=== PATIENT | female | born 1945 ===

== ENCOUNTER 2017-06-09 15:35 | Outpatient (RCR) | payer MEDICARE ==
--- NOTE | 2017-05-26 14:54 | Diagnostic Imaging Report ---
PROCEDURE: Frontal and lateral views of the chest. COMPARISON: None. INDICATIONS: PRE OPERTIVE CHEST X-RAY FOR FOOT SURGERY FINDINGS: Lines/tubes: Right subclavian tunneled chest port with tip projecting over the expected region of the superior vena cava. Lungs: The lungs are well inflated and clear. There is no evidence of pneumonia or pulmonary edema. Pleura: There is no pleural effusion or pneumothorax. Heart and mediastinum: The heart and the mediastinum are normal. Bones: No acute bony abnormality. Degenerative changes of the thoracic spine. Median sternotomy wires. IMPRESSION: No acute radiographic abnormality. Dictated by: Sebastian Hogue M.D. on 05/26/2017 at 15:01 Electronically approved by: Sebastian Hogue M.D. on 05/26/2017 at 15:01
[~2017-06-09 15:35] MED LIST: LIDOCAINE VISC 2% SOLN 15 ML UDC ONE
== END 2017-06-20 ==
LOC: WCC 15:35
PROVIDERS: ATTEND Podiatrist Foot & Ankle Surgery
DX: E11.621 Type 2 diabetes mellitus with foot ulcer (principal); E11.36 Type 2 diabetes mellitus with diabetic cataract; L97.522 Non-pressure chronic ulcer of other part of left foot with fat layer exposed; I10 Essential (primary) hypertension; N18.4 Chronic kidney disease, stage 4 (severe); D63.1 Anemia in chronic kidney disease; Z85.42 Personal history of malignant neoplasm of other parts of uterus; Z01.810 Encounter for preprocedural cardiovascular examination; Z01.811 Encounter for preprocedural respiratory examination
CPT/HCPCS: 11042 ×2; 36415 ×2; 71020; 82948 ×2; G0463

== ENCOUNTER → 2017-07-21 | Outpatient (RCR) | payer MEDICARE | LOC: WCC 12:53 | PROVIDERS: ATTEND Podiatrist Foot & Ankle Surgery | DX: E11.621 Type 2 diabetes mellitus with foot ulcer (principal); E11.36 Type 2 diabetes mellitus with diabetic cataract; M86.18 Other acute osteomyelitis, other site; L97.523 Non-pressure chronic ulcer of other part of left foot with necrosis of muscle; L97.522 Non-pressure chronic ulcer of other part of left foot with fat layer exposed; L97.521 Non-pressure chronic ulcer of other part of left foot limited to breakdown of skin; N18.4 Chronic kidney disease, stage 4 (severe); D63.1 Anemia in chronic kidney disease; I10 Essential (primary) hypertension; Z85.42 Personal history of malignant neoplasm of other parts of uterus; Z01.810 Encounter for preprocedural cardiovascular examination; Z01.811 Encounter for preprocedural respiratory examination | CPT/HCPCS: 36415; 82948 ==

== ENCOUNTER 2017-07-28 12:47 | Outpatient (RCR) | payer MEDICARE ==
[2017-07-28] MEDS ORDERED: LIDOCAINE VISC 2% SOLN 15 ML UDC ONE (15:22)
[2017-07-31] MEDS ORDERED: FUROSEMIDE40 MG PO (20:41)
[2017-07-31] MEDS ORDERED: LISINOPRIL10 MG PO (20:42)
[2017-07-31] MEDS ORDERED: CARVEDILOL12.5 MG PO (20:42)
[2017-07-31] MEDS ORDERED: LORAZEPAM0.5 MG PO (20:43)
[2017-07-31] MEDS ORDERED: TRADJENTA5 MG PO (20:43)
[2017-07-31] MEDS ORDERED: ZOFRAN ODT4 MG PO (20:44)
[2017-07-31] MEDS ORDERED: FENOFIBRATE145 MG PO (20:45)
[2017-07-31] MEDS ORDERED: GABAPENTIN300 MG PO (20:46)
[2017-07-31] MEDS ORDERED: PINDOLOL5 MG PO (20:46)
[2017-07-31] MEDS ORDERED: LEXAPRO10 MG PO (20:47)
[2017-07-31] MEDS ORDERED: BACLOFEN10 MG PO (20:47)
[2017-07-31] MEDS ORDERED: PLAVIX75 MG PO (20:48)
[2017-07-31] MEDS ORDERED: METOCLOPRAMIDE10 MG PO (20:49)
[2017-07-31] MEDS ORDERED: CARDENE PO (20:50)
[2017-07-31] MEDS ORDERED: ZOCOR40 MG PO (20:51)
[2017-07-31] MEDS ORDERED: CIPRO500 MG PO (20:51)
[2017-07-31] MEDS ORDERED: ATORVASTATIN CA20 MG PO (20:52)
[2017-07-31] MEDS ORDERED: LEVAQUIN250 MG PO (20:52)
[2017-07-31] MEDS ORDERED: HUMULIN-R100 UNITS/ SC (20:53)
[2017-07-31] MEDS ORDERED: ASPIR 8181 MG PO (20:54)
--- NOTE | 2017-08-04 12:41 | Progress Note ---
DATE: August 04, 2017 REASON FOR CONSULTATION: Chronic kidney stage IV. SUBJECTIVE: No acute events overnight. Upper extremities are tender to touch. OBJECTIVE GENERAL: Lying comfortably in bed, in no acute distress. VITAL SIGNS: Temperature 98, heart rate 66, respiratory rate 20, blood pressure 126/60, and O2 sat is 99% on room air. LUNGS: Clear to auscultation bilaterally. No wheezing or rales. HEART: Regular rate and rhythm. S1, S2 normal. EXTREMITIES: Diffuse purpuric rash, tender to touch. LABS: Reviewed on electronic medical record, significant for hemoglobin of 10.2, creatinine of 2.4, BUN of 52, chloride 108. Urinalysis performed on presentation was positive for blood, but also positive for moderate epithelial cells indicative of contamination. We will repeat urinalysis. ASSESSMENT AND PLAN 1. Accelerated hypertension. We will continue amlodipine and Coreg. 2. Poor oral intake, so we will keep with normal saline at 50 mL per hour. Job#: [id number] [facility]
[2017-08-05] MEDS ORDERED: DOCUSATE SODIU100 MG PO (11:06)
[2017-08-05] MEDS ORDERED: ASCORBIC ACID500 MG PO (11:06)
[2017-08-05] MEDS ORDERED: MAGNESIUM OXID400 MG PO (11:06)
[2017-08-05] MEDS ORDERED: BACLOFEN10 MG PO (11:06)
[2017-08-05] MEDS ORDERED: PROCARDIA XL30 MG PO (11:06)
[2017-08-05] MEDS ORDERED: NEPHRO-VITE TABL1 EA PO (11:06)
[2017-08-05] MEDS ORDERED: LORAZEPAM0.5 MG PO (11:06)
[2017-08-05] MEDS ORDERED: Calcium Carbonate PO (11:06)
[2017-08-05] MEDS ORDERED: ZINC SULFATE220 M1 PO (11:06)
[2017-08-12] MEDS ORDERED: PROCARDIA XL30 MG PO (13:49)
[2017-08-12] MEDS ORDERED: BACLOFEN10 MG PO (13:49)
[2017-08-12] MEDS ORDERED: ZOFRAN ODT4 MG PO (13:54)
== END 2017-08-18 ==
LOC: WCC 12:47
PROVIDERS: ATTEND Podiatrist Foot & Ankle Surgery
DX: E11.621 Type 2 diabetes mellitus with foot ulcer (principal); L97.522 Non-pressure chronic ulcer of other part of left foot with fat layer exposed; M86.18 Other acute osteomyelitis, other site; D63.1 Anemia in chronic kidney disease; E11.36 Type 2 diabetes mellitus with diabetic cataract; I10 Essential (primary) hypertension; N18.4 Chronic kidney disease, stage 4 (severe); Z01.810 Encounter for preprocedural cardiovascular examination; Z01.811 Encounter for preprocedural respiratory examination; Z85.42 Personal history of malignant neoplasm of other parts of uterus

== ENCOUNTER 2017-07-31 14:34 | Inpatient (IN) | payer MEDICARE ==
[~2017-07-31] VITALS: Ht 175.3 cm; Wt 89.4 kg
--- OUTSIDE RECORDS SUMMARY | 2017-07-31 14:37 | XMS REPORT | Clinical Summary ---
Author Author [facility] Organization [facility] Address Unknown Phone Unavailable Care Team Providers Care County Supervisor Name Role Phone Arsen Baeza MD PCP Allergies Active Allergy Reactions Severity Noted Date Comments Hydralazine 07/08/2016 Sulfa (Sulfonamide 07/08/2016 Antibiotics) Current Medications Prescription Sig. Disp. Refills Start End Date Status Date gabapentin (NEURONTIN) Take 1 capsule by mouth 1 05/21/20 Active 300 mg capsule twice a day 16 linagliptin (TRADJENTA) 5 Take 5 mg by mouth daily. Active mg tablet aspirin 325 MG tablet Take 325 mg by mouth Active daily. atorvastatin (LIPITOR) 20 Take 20 mg by mouth Active MG tablet nightly. LORAZepam (ATIVAN) 0.5 MG Take 0.5-1 mg by mouth Active tablet daily as needed for anxiety. metoclopramide (REGLAN) 5 Take 5 mg by mouth 2 Active MG tablet (two) times a day. escitalopram (LEXAPRO) 5 Take 5 mg by mouth daily. Active MG tablet INSULIN REGULAR, HUMAN Inject 35 Units under the Active (HUMULIN R U-500, CONC, skin 2 (two) times a day. KWIKPEN SUBQ) pindolol (VISKEN) 5 MG Take 1 tablet (5 mg 60 tablet 0 07/24/1911/07 Active tablet total) by mouth 2 (two) 18 18 times a day for 30 days. niCARDipine (CARDENE) 20 Take 1 capsule (20 mg 90 capsule 0 07/24/19 08/24/19 Active MG capsule total) by mouth every 8 18 18 (eight) hours for 30 days. furosemide (LASIX) 20 mg Take 1 tablet (20 mg 30 tablet 0 07/25/19 08/25/19 Active tablet total) by mouth daily for 18 18 30 days. fenofibrate (LOFIBRA) 160 Take 1 tablet (160 mg 30 tablet 0 07/25/19 08/25/19 Active MG tablet total) by mouth daily for 18 18 30 days. metoclopramide (REGLAN) TK 1 T PO QD AC AND HS 1 05/07/20 03/30/20 Discontin 10 MG tablet 16 17 ued benazepril (LOTENSIN) 40 TK 1 T PO QD 1 04/27/20 12/10/19 Discontin MG tablet 16 17 ued simvastatin (ZOCOR) 40 MG TK 1 T PO D HS 0 04/26/20 03/30/20 Discontin tablet 16 17 ued furosemide (LASIX) 40 mg Take 1 tablet by mouth 1 06/01/20 07/24/19 Discontin tablet every day 16 18 ued ZETIA 10 mg tablet TK 1 T PO QD 1 05/21/20 12/10/19 Discontin 16 17 ued amLODIPine (NORVASC) 10 TK 1 T PO QD 1 05/08/20 12/10/19 Discontin mg tablet 16 17 ued LEVEMIR FLEXTOUCH 100 INJECT 30 UNITS UNDER THE 2 06/04/20 12/10/19 Discontin unit/mL (3 mL) insulin SKIN BID 16 17 ued pen PROAIR HFA 90 INHALE 2 PUFFS PO Q 4 TO 1 06/04/20 12/10/19 Discontin mcg/actuation inhaler 6 H PRN 16 17 ued cyclobenzaprine Take 10 mg by mouth 3 12/10/19 Discontin (FLEXERIL) 10 mg tablet (three) times a day as 17 ued needed for muscle spasms. carvedilol (COREG) 25 MG Take 50 mg by mouth 2 04/03/20 Discontin tablet (two) times a day with 17 ued meals. isosorbide mononitrate Take 60 mg by mouth 07/24/19 Discontin (IMDUR) 60 MG 24 hr daily. 18 ued tablet sodium,potassium,mag Please use as directed 2 Bottle 0 07/08/19 Discontin sulfates (SUPREP BOWEL 17 17 ued PREP KIT) 17.5-3.13-1.6 gram recon soln clopidogrel (PLAVIX) 75 Take 75 mg by mouth 07/23/19 Discontin mg tablet daily. 18 ued benazepril (LOTENSIN) 10 Take 10 mg by mouth. 03/19/20 Discontin MG tablet 17 ued NIFEdipine XL (PROCARDIA TK 1 T PO QD 3 10/29/19 03/17/20 Discontin XL) 30 MG 24 hr tablet 17 17 ued insulin GLARGINE (LANTUS) Inject under the skin. 03/17/20 Discontin 100 unit/mL injection 17 ued (vial) atorvastatin (LIPITOR) 20 02/02/20 03/17/20 Discontin MG tablet 17 17 ued escitalopram (LEXAPRO) 5 Take 5 mg by mouth daily. 03/04/20 03/30/20 Discontin MG tablet 17 17 ued HUMULIN R U-500, CONC, 01/20/20 03/30/20 Discontin KWIKPEN 500 unit/mL (3 17 17 ued mL) insulin pen NIFEdipine CC (ADALAT CC) 03/03/20 03/19/20 Discontin 30 MG 24 hr tablet 17 17 ued atorvastatin (LIPITOR) 10 Take 10 mg by mouth 03/19/20 Discontin MG tablet daily. 17 ued LORAZepam (ATIVAN) 1 MG Take 1 mg by mouth every 03/30/20 Discontin tablet 6 (six) hours as needed 17 ued for anxiety. ondansetron (ZOFRAN) 4 MG Take 4-8 mg by mouth 04/03/20 Discontin tablet daily as needed for 17 ued nausea or vomiting. lisinopril Take 1 tablet (20 mg 30 tablet 2 03/19/20 03/30/20 Discontin (PRINIVIL,ZESTRIL) 20 mg total) by mouth daily for 17 17 ued tablet 30 days. NIFEdipine CC (ADALAT CC) Take 1 tablet (60 mg 30 tablet 2 03/19/20 03/30/20 Discontin 60 MG 24 hr tablet total) by mouth daily for 17 17 ued 30 days. NIFEdipine XL (PROCARDIA Take 30 mg by mouth 04/03/20 Discontin XL) 30 MG 24 hr tablet daily. 17 ued benazepril (LOTENSIN) 40 Take 40 mg by mouth 07/23/19 Discontin MG tablet daily. 18 ued furosemide (LASIX) 20 mg Take 20 mg by mouth daily 07/24/19 Discontin tablet as needed. 18 ued NAPROXEN Take 1 tablet by mouth 10/14/20 Discontin SOD/DIPHENHYDRAMINE nightly as needed. 17 ued (ALEVE PM ORAL) omega-3 fatty acids 1,000 Take 1 capsule by mouth 07/23/19 Discontin mg capsule daily. 18 ued carvedilol (COREG) 25 MG Take 2 tablets (50 mg 120 tablet 1 04/03/20 05/03/20 tablet total) by mouth 2 (two) 17 17 times a day with meals for 30 days. clonIDINE (CATAPRES) 0.1 Take 1 tablet (0.1 mg 30 tablet 1 04/03/20 05/03/20 MG tablet total) by mouth every 4 17 17 (four) hours as needed for high blood pressure (for sbp > 170) for up to 30 days. ipratropium-albuterol Take 3 mL by nebulization 270 mL 0 04/03/20 (DUO-NEB) 0.5-2.5 mg/mL every 6 (six) hours while 17 17 nebulizer awake for 30 days. NIFEdipine XL (PROCARDIA Take 1 tablet (60 mg 30 tablet 3 04/03/20 05/03/20 XL) 60 MG 24 hr tablet total) by mouth daily for 17 17 30 days. insulin NPH (HumuLIN-N) Inject 35 Units under the 10 mL 12 04/03/20 04/03/20 Discontin 100 unit/mL injection skin 2 (two) times a day 17 17 ued before meals for 30 days. insulin lispro (HumaLOG) Inject 0-7 Units under 10 mL 12 04/03/20 Discontin 100 unit/mL injection the skin 3 (three) times 17 17 ued a day with meals for 30 days. cefdinir (OMNICEF) 300 MG Take 1 capsule (300 mg 14 capsule 0 04/10/20 capsule total) by mouth 2 (two) 17 17 times a day for 7 days. levoFLOXacin (LEVAQUIN) Take 750 mg by mouth 2 07/21/19 07/24/19 Discontin 750 MG tablet (two) times a day. 18 18 ued NIFEdipine CC (ADALAT CC) Take 60 mg by mouth 2 07/22/19 07/24/19 Discontin 60 MG 24 hr tablet (two) times a day. 18 18 ued traMADol (ULTRAM) 50 mg Take 50 mg by mouth 2 07/16/19 07/23/19 Discontin tablet (two) times a day. 18 18 ued Active Problems Problem Noted Date Episodic lightheadedness 07/22/2017 Urinary tract infection in female 03/30/2017 UTI (urinary tract infection) 03/30/2017 Dizziness, nonspecific 03/17/2017 Encounters Date Type Specialty Care Team Description 07/28/2017 Patient Quality Nayeli Hayes, PharmD Outreach 07/22/2017 Emergency General Internal Medicine Andreas Arboleda MD Episodic lightheadedness - Emilee Canas MD (Primary Dx);Secondary 07/24/2017 hypertension;Renal insufficiency;Dizziness, nonspecific 03/30/2017 [facility] General Internal Medicine Andreas Reyes MD Urinary tract infection - Encounter WatsonangelCarolyn bonilla in female (Primary 04/03/2017 MD Priscilla Dx);Sepsis, due to unspecified organism;Weakness;Malaise and fatigue;Dizziness, nonspecific 03/17/2017 Emergency General Internal Medicine Andreas Arboleda MD Dizziness, nonspecific - Isaac Matthews MD (Primary Dx);Gait 03/19/2017 abnormality 03/17/2017 Procedure Pass General Internal Medicine 03/11/2017 Emergency Emergency Medicine Andreas Reyes MD 12/16/2016 Office Visit Cardiovascular Lincoln Salamanca MD Bilateral lower extremity edema (Primary Dx);Toe ulcer, left, with unspecified severity 12/09/2016 Office Visit Cardiovascular Lincoln Salamanca MD Peripheral vascular disease (Primary Dx) 09/23/2016 Orders Only iDmas Taylor MD 09/22/2016 Hospital Isaac Matthews MD - Encounter 09/23/2016 09/22/2016 Conversion Isaac Matthews MD Encounter 09/22/2016 Orders Only Patricia Houston NP-C 09/09/2016 [facility] Radiology Tom Saini Jr., MD after 07/30/2016 Immunizations Name Dates Previously Given Next Due FLUCELVAX QUAD PF (0.5mL 03/18/2017 syringe) Pneumococcal Conjugate 03/18/2017 13-Valent Family History Medical History Relation Name Comments Diabetes Brother Heart disease Brother Hypertension Brother Cancer Father unknown Colon cancer Maternal Aunt Diabetes Mother Heart disease Mother Hypertension Mother Diabetes Sister Heart disease Sister Hypertension Sister Relation Name Status Comments Brother Father Maternal Aunt Mother Sister Social History Tobacco Use Types Packs/Day Years Used Date Never Smoker Smokeless Tobacco: Never Used Tobacco Cessation: Counseling Given: No Alcohol Use Drinks/Week oz/Week Comments No Sex Assigned at Date Recorded Not on file Last Filed Vital Signs Vital Sign Reading Time Taken Blood Pressure 128/62 07/24/2017 10:41 AM SALES NEGOTIATOR Pulse 72 07/24/2017 10:41 AM SALES NEGOTIATOR Temperature 36.3 C (97.4 F) 07/24/2017 7:51 AM SALES NEGOTIATOR Respiratory Rate 17 07/24/2017 7:51 AM SALES NEGOTIATOR Oxygen Saturation 96% 07/24/2017 7:51 AM SALES NEGOTIATOR Inhaled Oxygen - - Concentration Weight 94.8 kg (208 lb 15.9 oz) 07/23/2017 4:32 AM SALES NEGOTIATOR Height 160 cm (5' 2.99") 07/23/2017 4:32 AM SALES NEGOTIATOR Body Mass Index 37.03 07/23/2017 4:32 AM SALES NEGOTIATOR Plan of Treatment Health Maintenance Due Date Last Done Comments COLONOSCOPY 1997 ZOSTER VACCINE 2007 PNEUMOCOCCAL 2012 POLYSACCHARIDE VACCINE AGE 65 AND OVER MAMMOGRAM 06/18/2018 06/18/2016 INFLUENZA VACCINE Completed 03/18/2017 PNEUMOCOCCAL-13 Completed 03/18/2017 Implants Implanted Type Area [employer] 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 IN CRITICAL CARE, E/M Routine 03/30/2017 Results for this 30-74 MINUTES 10:03 AM CDT procedure are in the results section. ECHOCARDIOGRAM 2D Routine 03/18/2017 Results for this COMPLETE W MMODE SPECTRAL 11:15 AM CDT procedure are in the COLOR DOPPLER (27482) results section. CV STRESS TEST Routine 09/23/2016 Results for this 10:40 AM CDT procedure are in the results section. ECHOCARDIOGRAM COMPLETE W 09/22/2016 Results for this CONTRAST AND 3D IF NEEDED 1:55 PM CDT procedure are in the results section. after 07/30/2016 Results * Estimated GFR (07/24/2017 9:07 AM) Only the most recent of 13 results within the time period is included. Component Value Ref Range GFR Non Af Amer 19 (A) mL/min/1.73 m2 GFR Af Amer 23 (A) mL/min/1.73 m2 Comment: Chronic kidney disease: <60 mL/min/1.73m2 Kidney failure: <15 mL/min/1.73m2 The estimated GFR is calculated from the IDMS-traceable Modification of Diet in Renal Disease Equation. The accuracy of the calculation is poor when the creatinine is normal. Calculated values >90 mL/min/1.73m2 are not reported. This equation has not been validated in children (<18 years), women, the elderly (>70 years), or ethnic groups other than Caucasians and Americans. Specimen Performing Laboratory Plasma specimen [facility] DEPARTMENT OF PATHOLOGY AND GENOMIC MEDICINE [address] [place] [address] * CBC with platelet and differential (07/24/2017 9:07 AM) Only the most recent of 12 results within the time period is included. Component Value Ref Range WBC 6.3 4.2 - 11.0 k/uL RBC 3.51 (L) 4.04 - 5.86 m/uL HGB 9.8 (L) 11.5 - 15.3 g/dL HCT 30.2 (L) 34.0 - 45.0 % MCV 86.0 80.0 - 98.0 fL MCH 27.9 27.0 - 34.0 pg MCHC 32.5 31.5 - 36.5 g/dL RDW - SD 42.6 37.0 - 51.0 fL MPV 9.3 7.4 - 10.4 fL Platelet count 202 150 - 400 k/uL Nucleated RBC 0.00 /100 WBC Neutrophils 46.2 36.0 - 66.0 % Lymphocytes 45.0 (H) 24.0 - 44.0 % Monocytes 4.4 0.0 - 6.0 % Eosinophils 3.6 0.0 - 6.0 % Basophils 0.6 0.0 - 1.2 % Immature granulocytes 0.2 0.0 - 1.0 % Specimen Performing Laboratory Blood [facility] DEPARTMENT OF PATHOLOGY AND GENOMIC MEDICINE [address] [place] [address] * Basic metabolic panel (07/24/2017 9:07 AM) Only the most recent of 10 results within the time period is included. Component Value Ref Range Sodium 138 135 - 150 mEq/L Potassium 4.0 3.5 - 5.0 mEq/L Chloride 107 100 - 109 mEq/L CO2 24 24 - 32 mmol/L Anion gap 7 7 - 15 mEq/L Comment: Starting from September , anion gap calculation no longer incorporates potassium. Please note the change. BUN 30 (H) 7 - 18 mg/dL Creatinine 2.5 (H) 0.8 - 1.5 mg/dL Glucose 234 (H) 65 - 100 mg/dL Calcium 8.0 (L) 8.6 - 10.7 mg/dL Specimen Performing Laboratory Plasma specimen [facility] DEPARTMENT OF PATHOLOGY AND GENOMIC MEDICINE [address] [place] [address] * POC glucose (07/24/2017 6:16 AM) Only the most recent of 42 results within the time period is included. Component Value Ref Range POC glucose 272 (H) 65 - 100 mg/dL Comment: Meter ID: [id number] Web Graphic Designer: Shwetha Prince Specimen Performing Laboratory [facility] DEPARTMENT OF PATHOLOGY AND GENOMIC MEDICINE [address] [place] [address] * Echocardiogram complete w contrast and 3D if needed (07/23/2017 4:49 PM) Component Value Ref Range BSA 2.05 m2 Velocity Ratio (V1/V2) 0.58 m/s IVS,d 1.29 (A) 0.6 - 1.2 cm EF 72.32 % Ascending aorta 3.19 cm LVPWD,d 1.28 cm AoV Mean PG 4.71 mmHg AV LVOT peak gradient 3.38 mmHg MV mean gradient 3.46 mmHg MV valve area p 1/2 4.01 cm2 method PV Pk Grad 4.20 mmHg E/A ratio 0.74 E wave decelartion time 189.37 msec LVOT Diam,S 2.00 cm LVOT area 3.14 cm2 LVOT Vmax 0.92 m/s LVOT VTI 0.23 m AoV Peak PG 10.09 mmHg MV Peak E Martín 0.99 m/s MV stenosis pressure 1/2 54.92 ms time MV Peak A Martín 1.34 m/s Ao Root Diameter 3.48 cm AoV Area, Vmax 1.93 cm2 AoV Area, VTI 2.40 cm2 AoV Vmax 1.59 m/s IVS/LVPW,2D 1.01 Left Atrium Dimension 3.42 cm Anterior LV,d 4.51 cm LV,s 2.65 cm PV VMAX 1.02 m/s TR Vpeak 1.97 mm/s MV E A ratio 0.74 mmHg TR pk grad 15.56 mmHg MR peak grad 7.12 mmHg Ao Root Diameter 3.48 cm LV SYS VOL 25.74 ml LV STEPHENSON VOL 92.99 ml LV SV Teich 2D 67.26 ml LV Vol s Teich PSAX 25.74 ml LVOT CO 5.05 l/min LVOT HR for LVOT CO 70.07 bpm MV Vmax 1.33 m MV VTI Tips 0.33 m AoV Vmn 1.03 IVS s 2D 1.60 LV FS Cube 2D 41.31 LV FS Teich 2D 41.31 AoV VTI 0.30 m LV EF,2D 79.79 % MV AE ratio 1.35 LVOT Vmn 0.64 Aov area Vmn 1.90 cm2 LVOT mean grad 1.88 mmHg MAX Pred HR 149.67 85 of MPHR 127.22 Calc MPHR 149.67 bpm IVS pct thck PLAX 24.09 % LV SV Cube 2D 73.26 ml LV vol d cube 2D 91.82 ml LV vol s cube 2D 18.56 ml LVPW pct thck PLAX 67.03 % LVPW s PLAX 2.13 cm MV Decel slope 5.24 m/s2 Pred Exer Dur R1 6.79 Pred METS R1 5.56 Specimen Performing Laboratory [facility] [address] [place] [address] Narrative The left ventricle chamber size is normal. There is mild left ventricular Spectral Doppler shows impaired relaxation pattern of left ventricular diastolic filling. Left Ventricular ejection fraction is 60 - 65%. Right ventricular size is normal. The anterior leaflet is moderate thickened and/or calcified. There is a mild prolapse of the mitral valve. Trace mitral valve regurgitation mild mitral annular calcification. * ECG ED Preliminary Interpretation - NOT AN ORDER (07/23/2017 2:25 PM) Only the most recent of 3 results within the time period is included. Narrative Andreas Arboleda MD 07/23/20172:25 PM ECG ED Preliminary Interpretation - Not an Order Performed by: ANDREAS ARBOLEDA Authorized by: ANDREAS ARBOLEDA ECG reviewed by ED Physician in the absence of a dynamic balancer set up worker: yes Previous ECG: Previous ECG:Unavailable Interpretation: Interpretation: abnormal Rate: ECG rate:87 ECG rate assessment: normal Rhythm: Rhythm: sinus rhythm Ectopy: Ectopy: none QRS: QRS axis:Left QRS intervals:Normal Conduction: Conduction: normal ST segments: ST segments:Normal T waves: T waves: flattening T wave flattening noted on lead: diffuse. * Gram stain (07/23/2017 1:40 PM) Only the most recent of 2 results within the time period is included. Component Value Ref Range Gram stain result No WBC's or organisms seen. Comment: Specimen Information Specimen Source: Urine Specimen Site: Clean catch Specimen Performing Laboratory Urine [facility] DEPARTMENT OF PATHOLOGY AND GENOMIC MEDICINE [address] [place] [id number] * Urine culture (07/23/2017 1:40 PM) Only the most recent of 3 results within the time period is included. Component Value Ref Range Urine culture isolate Streptococcus group B 10-1 cfu/ml (A) Comment: Specimen Information Specimen Source: Urine Specimen Site: Clean catch Urine culture isolate Mixed Gram positive faina 10-3 cfu/ml (A) Specimen Performing Laboratory Urine [facility] DEPARTMENT OF PATHOLOGY AND GENOMIC MEDICINE [address] [place] [address] * Urinalysis screen and microscopy, with reflex to culture (07/23/2017 1:39 PM) Only the most recent of 3 results within the time period is included. Component Value Ref Range Specimen site Clean catch Color, UA Yellow Appearance, UA Clear Specific gravity, UA 1.011 1.001 - 1.035 pH, UA 5.0 5.0 - 8.5 Protein, UA 3+ (A) Negative Glucose, UA 3+ (A) Negative Ketones, UA Negative Negative Bilirubin, UA Negative Negative Blood, UA Trace (A) Negative Nitrite, UA Negative Negative Urobilinogen, UA Negative <2.0 Leukocyte esterase, UA Negative Negative Epithelial cells, UA Many /HPF WBC, UA 5 (A) 0 - 5 /HPF RBC, UA 8 (H) 0 - 5 /HPF Bacteria, UA Few None seen Yeast, UA None seen Yeast with pseudohyphae, None seen UA Hyaline casts, UA 3 /LPF Specimen Performing Laboratory Urine [facility] DEPARTMENT OF PATHOLOGY AND GENOMIC MEDICINE [address] [place] [address] * Prothrombin time with INR (07/23/2017 4:26 AM) Only the most recent of 4 results within the time period is included. Component Value Ref Range Prothrombin time 15.7 (H) 12.0 - 15.0 sec INR 1.23 (H) 0.92 - 1.12 Comment: For patients on anticoagulant therapy, reference ranges below: Indication: INR Value Treatment of Venous Thrombosis, 2.0-3.0 pulmonary emboli, or prophylaxis of a venous thrombosis, or systemic emboli. High dose, high risk patients 3.0-4.5 with mechanical valves. NOTE: INR values over 3.0 are sometimes associated with gastrointestinal hemorrhage, especially values over 4.0. Specimen Performing Laboratory Blood [facility] DEPARTMENT OF PATHOLOGY AND GENOMIC MEDICINE [address] [place] [address] * Hemoglobin A1c (07/23/2017 4:26 AM) Only the most recent of 4 results within the time period is included. Component Value Ref Range Hemoglobin A1C 8.9 (H) 4.0 - 6.0 % Comment: Less than 6% - Goal of therapy for Type II Diabetes Less than 7%- Goal of therapy for Type I Diabetes Less than 8%- Acceptable control for Type I or Type II Diabetes Greater than 8%- Unacceptable control; action indicated. (A DA94) Specimen Performing Laboratory Blood [facility] DEPARTMENT OF PATHOLOGY AND GENOMIC MEDICINE [address] [place] [address] * Lipid panel (07/23/2017 4:26 AM) Only the most recent of 2 results within the time period is included. Component Value Ref Range Cholesterol 247 (H) 120 - 200 mg/dL Triglycerides 603 (H) 50 - 150 mg/dL HDL cholesterol 34 (L) 40 - 60 mg/dL LDL cholesterol 138Comment: Result obtained by direct LDL mg/dL measurement Lipid panel See below interpretation Comment: Total Cholesterol (mg/dL) LDL Cholesterol (mg/dL) <200 Desirable <100 Optimal 200-239 Borderline-high 100-129 Near or above optimal >=240 High 130-159 Borderline-high 160-189 High >=190 Very high HDL Cholesterol (mg/dL) Triglycerides (mg/dL) <40 Low <150 Normal >=60 High 150-199 Borderline-high 200-499 High >=500 Very high Risk Catergories that modify LDL goals. Risk Catergories LDL goal (mg/dL) CHD and CHD risk equivalent <100 (10-year risk >20%) Multiple (2+) risk factors <130 (10-year risk=<20%) 0-1 risk factors <160 (<10-year risk) Defining levels of lipids in metabolic syndrome Triglycerides >=150 mg/dL HDL Cholesterol Men <40 mg/dL Women <50 mg/dL Non-HDL cholesterol is a second target for therapy in persons with high triglycerides (>=200 mg/dL) Specimen Performing Laboratory Plasma specimen [facility] DEPARTMENT OF PATHOLOGY AND GENOMIC MEDICINE [address] [place] [address] [place] [address] * Troponin (07/23/2017 12:22 AM) Only the most recent of 10 results within the time period is included. Component Value Ref Range Troponin <0.01 0.00 - 0.60 ng/mL Comment: 0.11 - 1.49 ng/ml May indicate increased risk of acute coronary syndrome. >=1.5 ng/ml Consistent with acute myocardial infarction. The diagnostic value of a single normal or non-diagnostic result is questionable. Serial samples at 2-6 hour intervals are required to rule out acute myocardial injury. Specimen Performing Laboratory Plasma specimen [facility] DEPARTMENT OF PATHOLOGY AND GENOMIC MEDICINE [address] [place] [address] [place] [address] * CT Head Wo Contrast (07/22/2017 9:46 PM) Only the most recent of 2 results within the time period is included. Specimen Performing Laboratory [facility] [address] [place] [id number] Narrative EXAMINATION: CT HEAD WO CONTRAST CLINICAL HISTORY: dizziness COMPARISON:CT brain dated March 17, 2017 TECHNIQUE: Noncontrast enhanced images of the brain were obtained from the skull base to the vertex. Both soft tissue and bone reconstruction algorithms were performed.CT imaging was performed with iterative reconstruction technique and/or automated exposure control to reduce radiation dose. FINDINGS: The brain parenchyma has no acute lesion. The nino-white matter differentiation is preserved. No evidence of acute intra or extra-axial hemorrhage, mass, mass effect or acute territorial infarction. There is no acute hydrocephalus. Basal cisterns are patent. There are atherosclerotic calcifications in the carotid siphons and vertebral arteries. Sulci and ventricles are prominent from age-related volume loss. There are extensive calcifications in the vertebral arteries. This is unchanged. There are lucencies in the white matter from chronic small vessel changes which are mild in degree. No acute soft tissue hematoma or laceration. Paranasal sinuses shows no acute air-fluid levels. Mastoid air cells are clear.No skull fractures or aggressive bony lesions. IMPRESSION: There are involutional changes as detailed above with no acute intracranial abnormality. [facility]-[id number] Procedure Note Interface, Radiology Results Incoming - 07/22/2017 9:56 PM SALES NEGOTIATOR EXAMINATION: CT HEAD WO CONTRAST CLINICAL HISTORY: dizziness COMPARISON: CT brain dated March 17, 2017 TECHNIQUE: Noncontrast enhanced images of the brain were obtained from the skull base to the vertex. Both soft tissue and bone reconstruction algorithms were performed. CT imaging was performed with iterative reconstruction technique and/or automated exposure control to reduce radiation dose. FINDINGS: The brain parenchyma has no acute lesion. The nino-white matter differentiation is preserved. No evidence of acute intra or extra-axial hemorrhage, mass, mass effect or acute territorial infarction. There is no acute hydrocephalus. Basal cisterns are patent. There are atherosclerotic calcifications in the carotid siphons and vertebral arteries. Sulci and ventricles are prominent from age-related volume loss. There are extensive calcifications in the vertebral arteries. This is unchanged. There are lucencies in the white matter from chronic small vessel changes which are mild in degree. No acute soft tissue hematoma or laceration. Paranasal sinuses shows no acute air-fluid levels. Mastoid air cells are clear. No skull fractures or aggressive bony lesions. IMPRESSION: There are involutional changes as detailed above with no acute intracranial abnormality. [facility]-[id number] * XR Chest 2 Vw (07/22/2017 9:25 PM) Only the most recent of 2 results within the time period is included. Specimen Performing Laboratory [facility] [address] [place] [address] Narrative EXAMINATION:XR CHEST 2 VW CLINICAL HISTORY:dizziness COMPARISON:03/30/2017 IMPRESSION: Right chest port is again seen with tip projecting over superior vena cava. No consolidations, effusions, or pneumothorax. Cardiomediastinal silhouette is within normal limits. No acute osseous abnormalities. Mild degenerative change of the lower thoracic spine. [facility]-[id number] Procedure Note Interface, Radiology Results Incoming - 07/22/2017 9:35 PM SALES NE[employer]IATOR EXAMINATION: XR CHEST 2 VW CLINICAL HISTORY: dizziness COMPARISON: 03/30/2017 IMPRESSION: Right chest port is again seen with tip projecting over superior vena cava. No consolidations, effusions, or pneumothorax. Cardiomediastinal silhouette is within normal limits. No acute osseous abnormalities. Mild degenerative change of the lower thoracic spine. [facility]-[id number] * B natriuretic peptide (07/22/2017 7:18 PM) Only the most recent of 3 results within the time period is included. Component Value Ref Range BNP 140 (H) 0 - 100 pg/mL Specimen Performing Laboratory Blood [facility] DEPARTMENT OF PATHOLOGY AND GENOMIC MEDICINE [address] [place] [address] * Comprehensive metabolic panel (07/22/2017 7:18 PM) Only the most recent of 3 results within the time period is included. Component Value Ref Range Sodium 137 135 - 150 mEq/L Potassium 3.6 3.5 - 5.0 mEq/L Chloride 102 100 - 109 mEq/L CO2 24 24 - 32 mmol/L Anion gap 11 7 - 15 mEq/L Comment: Starting from September , anion gap calculation no longer incorporates potassium. Please note the change. BUN 29 (H) 7 - 18 mg/dL Creatinine 2.6 (H) 0.8 - 1.5 mg/dL Glucose 221 (H) 65 - 100 mg/dL Calcium 8.7 8.6 - 10.7 mg/dL Protein 7.9 6.3 - 8.2 g/dL Albumin 3.3 3.2 - 5.0 g/dL A/G ratio 0.7 0.7 - 3.8 Alkaline phosphatase 119 30 - 120 U/L AST 11 (L) 15 - 37 U/L ALT 20 (L) 30 - 65 U/L Total bilirubin 0.5 0.2 - 1.2 mg/dL Specimen Performing Laboratory Plasma specimen [facility] DEPARTMENT OF PATHOLOGY AND GENOMIC MEDICINE [address] [place] [address] * ECG 12 lead (07/22/2017 6:20 PM) Only the most recent of 5 results within the time period is included. Component Value Ref Range Ventricular rate 87 Atrial rate 87 IN interval 148 QRSD interval 82 QT interval 476 QTC interval 572 P axis 1 74 QRS axis 1 -76 T wave axis 43 EKG impression Normal sinus rhythm-Left axis deviation-Nonspecific ST and T wave abnormality- Specimen Performing Laboratory [facility] MUSE [address] [place] [address] * Hepatic function panel (04/02/2017 5:14 AM) Only the most recent of 2 results within the time period is included. Component Value Ref Range Albumin 2.5 (L) 3.2 - 5.0 g/dL Total bilirubin 0.3 0.2 - 1.2 mg/dL Bilirubin direct 0.1 0.0 - 0.4 mg/dL Alkaline phosphatase 85 30 - 120 U/L Protein 6.0 (L) 6.3 - 8.2 g/dL ALT 12 (L) 30 - 65 U/L AST 9 (L) 15 - 37 U/L Specimen Performing Laboratory Plasma specimen [facility] DEPARTMENT OF PATHOLOGY AND GENOMIC MEDICINE [address] [place] [address] * NM Lung Ventilation Perfusion (04/01/2017 9:38 PM) Only the most recent of 2 results within the time period is included. Specimen Performing Laboratory [facility] [address] [place] [address] Narrative PROCEDURE:NM LUNG VENTILATION PERFUSION INDICATION:Dyspnea. COMPARISON:Prior VQ scan dated 09/22/16. TECHNIQUE:Planar ventilation images were acquired after the inhalation of 15 mCi of Xe-133 gas. Planar perfusion images were acquired after the IV adminstration of 5 mCi of Tc-99m MAA. FINDINGS:Ventilation images demonstrate decreased ventilation to the lung periphery and left lung base. Washout images demonstrate gas trapping in both lungs.Perfusion images demonstrate decreased perfusion to the lung periphery and left lung base, matching the ventilation images.No mismatched defects.No interval change from 09/22/16. IMPRESSION: 1.Low probability for PE. 2.No change from 09/22/16. [facility]-[id number] Procedure Note Interface, Radiology Results Incoming - 04/01/2017 10:03 PM CDT PROCEDURE: NM LUNG VENTILATION PERFUSION INDICATION: Dyspnea. COMPARISON: Prior VQ scan dated 09/22/16. TECHNIQUE: Planar ventilation images were acquired after the inhalation of 15 mCi of Xe-133 gas. Planar perfusion images were acquired after the IV adminstration of 5 mCi of Tc-99m MAA. FINDINGS: Ventilation images demonstrate decreased ventilation to the lung periphery and left lung base. Washout images demonstrate gas trapping in both lungs. Perfusion images demonstrate decreased perfusion to the lung periphery and left lung base, matching the ventilation images. No mismatched defects. No interval change from 09/22/16. IMPRESSION: 1. Low probability for PE. 2. No change from 09/22/16. [facility]-[id number] * CT Chest Wo Contrast (04/01/2017 5:53 PM) Specimen Performing Laboratory [facility] [address] [place] [address] Narrative Study:CT CHEST WO CONTRAST History: pulmonary fibrosis COMPARISON: None. TECHNIQUE: Multiple axial CT images of the chest performed Without IV contrast.. Coronal and sagittal reconstructions were done. CT imaging was performed with iterative reconstruction technique and/or automated exposure control to reduce radiation dose. FINDINGS: LUNGS: There are small layering bilateral pleural effusions are present. There is some scarring of the left lung base. No pneumothorax. There is a 7 mm pulmonary nodule in the right upper lobe close to the hilum in image 64 series 3. No honeycombing being seen to suggest advanced pulmonary fibrosis. AIRWAYS: No central endobronchial or endotracheal lesions are seen. MEDIASTINUM: The thoracic aorta is without aneurysm. Mild dilation of the pulmonary artery to 3.1 cm in diameter indicating some degree of pulmonary arterial hypertension. Heart is enlarged with atherosclerotic calcification of the coronary arteries. No significant pericardial effusion is present. No enlarged mediastinal or hilar lymph nodes present. The esophagus is unremarkable. BONES AND OVERLYING SOFT TISSUES: The visualized bones are without destructive lesions. No enlarged axillary lymph nodes present. VISUALIZED LOWER NECK AND UPPER ABDOMEN: No acute abnormality. IMPRESSION: Small bilateral pleural effusions. Follow-up CT chest in 6-12 months recommended for the pulmonary nodule in the right upper lobe. [facility]-[id number] Procedure Note Interface, Radiology Results Incoming - 04/01/2017 6:20 PM CDT Study:CT CHEST WO CONTRAST History: pulmonary fibrosis COMPARISON: None. TECHNIQUE: Multiple axial CT images of the chest performed Without IV contrast.. Coronal and sagittal reconstructions were done. CT imaging was performed with iterative reconstruction technique and/or automated exposure control to reduce radiation dose. FINDINGS: LUNGS: There are small layering bilateral pleural effusions are present. There is some scarring of the left lung base. No pneumothorax. There is a 7 mm pulmonary nodule in the right upper lobe close to the hilum in image 64 series 3. No honeycombing being seen to suggest advanced pulmonary fibrosis. AIRWAYS: No central endobronchial or endotracheal lesions are seen. MEDIASTINUM: The thoracic aorta is without aneurysm. Mild dilation of the pulmonary artery to 3.1 cm in diameter indicating some degree of pulmonary arterial hypertension. Heart is enlarged with atherosclerotic calcification of the coronary arteries. No significant pericardial effusion is present. No enlarged mediastinal or hilar lymph nodes present. The esophagus is unremarkable. BONES AND OVERLYING SOFT TISSUES: The visualized bones are without destructive lesions. No enlarged axillary lymph nodes present. VISUALIZED LOWER NECK AND UPPER ABDOMEN: No acute abnormality. IMPRESSION: Small bilateral pleural effusions. Follow-up CT chest in 6-12 months recommended for the pulmonary nodule in the right upper lobe. [facility]-[id number] * D-dimer (04/01/2017 11:22 AM) Only the most recent of 2 results within the time period is included. Component Value Ref Range D-dimer 0.94 (H) 0.00 - 0.40 ug/mL FEU Comment: Units are ug/ml Fibrinogen Equivalent Unit. When combined with low clinical probability, D-dimer results of less than 0.5 ug/ml FEU have a good negative predictive value in excluding PE or DVT. For D-dimer results greater than 0.5 ug/ml FEU further testing is indicated if PE or DVT is suspected clinically. Elevated D-dimer results have been reported in DVT, PE, and DIC cases and may indicate the presence of a clot. D-dimer results may be elevated due to old age, , inflammatory diseases, trauma, post-operative states, sepsis, and malignancies. Specimen Performing Laboratory Blood [facility] DEPARTMENT OF PATHOLOGY AND GENOMIC MEDICINE [address] [place] [address] * Vancomycin level, trough (04/01/2017 11:22 AM) Component Value Ref Range Vancomycin, trough 18.4 10.0 - 20.0 ug/mL Comment: Therapeutic Ranges: Peak 30.0 - 40.0 ug/mL Trough 10.0 - 20.0 ug/mL Specimen Performing Laboratory Blood [facility] DEPARTMENT OF PATHOLOGY AND GENOMIC MEDICINE [address] [place] [address] * Consult to Sepsis Response Team (03/30/2017 1:44 PM) Only the most recent of 2 results within the time period is included. Narrative Thong Rivas NP 03/30/20171:44 PM Sepsis Clinical Assessment Performed by: THONG RIVAS Authorized by: THONG RIVAS Sepsis Clinical Assessment General Assessment Information Current sepsis score:0 On comfort care?: No If score does not worsen, snooze alerts until:03/31/2017 13:28 CDT Sepsis Assessment Clinical suspicion of infection? Yes Time of suspicion of infection:03/30/2017 1:28 PM Clinical suspicion of sepsis?: Yes Sepsis staging:Severe sepsis Severe Sepsis T0:03/30/2017 1:28 PM Sepsis protocol started?Yes Where did the protocol start?:ED Started Suspected Source of Infection Suspected Source of Infection: UTI Focus Exam Cardiopulmonary Exam Heart: Regular rate & rhythm Left Lung: Clear Right Lung: Clear Capillary Refill Capillary refill rate: Brisk, < 3 s Peripheral Pulses Left doralis pedis:Normal Right doralis pedis:Normal Left posterial tibial: Normal Right posterial tibial:Normal Left radial:Normal Right radial:Normal Skin Exam Skin exam: Skin color normal Sepsis Related Vitals Heart rate: 71 Temperature: 97 F Respiratory rate: 18 Blood pressure: 111/57 Altered mental status: WBC (k/uL) Date Value 03/30/2017 10. 7.5 Weight-Based Fluid Bolus Calculation The recommended weight-based bolus volume: 2,721 mL (dosing weight) Please refer to the MAR for actual med/fluid administrations. * Critical Care (03/30/2017 10:03 AM) Narrative Andreas Reyes MD 03/30/2017 10:03 AM Critical Care Performed by: ANDREAS REYES Authorized by: ANDREAS REYSE Critical care provider statement: Critical care time (minutes):35 Critical care end time:03/30/2017 10:02 AM Critical care time was exclusive of:Separately billable procedures and treating other patients Critical care was necessary to treat or prevent imminent or life-threatening deterioration of the following conditions:Sepsis Critical care was time spent personally by me on the following activities:Ordering and performing treatments and interventions, ordering and review of laboratory studies, ordering and review of radiographic studies, pulse oximetry, re-evaluation of patient's condition, development of treatment plan with patient or surrogate, evaluation of patient's response to treatment, examination of patient, gastric intubation, obtaining history from patient or surrogate and interpretation of cardiac output measurements * XR Chest 1 Vw Portable (03/30/2017 9:05 AM) Only the most recent of 2 results within the time period is included. Specimen Performing Laboratory [facility] [address] [place] [address] Narrative EXAMINATION:XR CHEST 1 VW PORTABLE CLINICAL HISTORY:Chest Pain COMPARISON:03/17/2017 IMPRESSION: 1. There is atelectasis in the lung bases, left greater than right. No consolidation or pleural effusion. 2. The cardiac silhouette is mildly enlarged and there is mild central pulmonary vascular congestion which is increased. The thoracic aorta is atherosclerotic. 3. A right subclavian chest port is unchanged. 4. The visualized osseous structures are intact. The patient is status post median sternotomy. [facility]-[id number] Procedure Note Interface, Radiology Results Incoming - 03/30/2017 9:10 AM CDT EXAMINATION: XR CHEST 1 VW PORTABLE CLINICAL HISTORY: Chest Pain COMPARISON: 03/17/2017 IMPRESSION: 1. There is atelectasis in the lung bases, left greater than right. No consolidation or pleural effusion. 2. The cardiac silhouette is mildly enlarged and there is mild central pulmonary vascular congestion which is increased. The thoracic aorta is atherosclerotic. 3. A right subclavian chest port is unchanged. 4. The visualized osseous structures are intact. The patient is status post median sternotomy. [facility]-[id number] * Blood culture, aerobic & anaerobic (03/30/2017 8:09 AM) Only the most recent of 2 results within the time period is included. Component Value Ref Range Blood culture isolate No growth after 5 days of incubation. Comment: Specimen Information Specimen Source: Blood Specimen Site: Peripheral Arm Right Specimen Performing Laboratory Blood [facility] DEPARTMENT OF PATHOLOGY AND GENOMIC MEDICINE [address] [place] [id number] * Partial thromboplastin time, activated (03/30/2017 8:09 AM) Only the most recent of 2 results within the time period is included. Component Value Ref Range PTT 26.9 23.0 - 36.0 sec Comment: PTT therapeutic range for unfractionated heparin is 61.0-112.0 seconds which corresponds to Anti-Xa 0.3-0.7 U/ml. Note: Change in Panic Value The PTT Panic Value is changing from 110 sec. to 100 sec. due to new instrumentation and reagents. Correlation studies have been performed to validate this result. Specimen Performing Laboratory Blood [facility] DEPARTMENT OF PATHOLOGY AND GENOMIC MEDICINE [address] [place] [address] * Lipase level (03/30/2017 8:09 AM) Component Value Ref Range Lipase 240 (H) 65 - 230 U/L Specimen Performing Laboratory Plasma specimen [facility] DEPARTMENT OF PATHOLOGY AND GENOMIC MEDICINE [address] [place] [address] * Lactic acid level (03/30/2017 8:09 AM) Component Value Ref Range Lactic acid 1.1 0.5 - 2.2 mmol/L Specimen Performing Laboratory Blood [facility] DEPARTMENT OF PATHOLOGY AND GENOMIC MEDICINE [address] [place] [address] * Venous blood gas (03/30/2017 8:09 AM) Component Value Ref Deputy Administrator JLCM Collection site RAC O2 therapy ROOM AIR pH, venous 7.334 7.320 - 7.420 units pCO2, venous 40.2 (L) 45.0 - 51.0 mmHg pO2, venous 41.7 (H) 25.0 - 40.0 mmHg O2 saturation, venous 75.7 (H) 40.0 - 70.0 % Bicarbonate 21.4 21.0 - 28.0 mEq/L O2 content 10.0 VOL% FiO2, inspired O2% 21.0 % Carboxyhemoglobin 1.4 0.0 - 1.4 % Comment: Reference Ranges: Carboxyhemoglobin Non smoker: 0.0 - 2.0% Smoker: 2.1 - 5.0% Heavy smoker: 5.1 - 9% Methemoglobin 0.2 0.0 - 1.0 % Hemoglobin, blood gas 9.6 (L) 12.0 - 16.0 g/dL Specimen Performing Laboratory Blood [facility] DEPARTMENT OF PATHOLOGY AND GENOMIC MEDICINE [address] [place] [address] * Creatine kinase, total (CPK) (03/30/2017 8:09 AM) Only the most recent of 4 results within the time period is included. Component Value Ref Range Creatine kinase 65 61 - 224 U/L Specimen Performing Laboratory Plasma specimen [facility] DEPARTMENT OF PATHOLOGY AND GENOMIC MEDICINE [address] [place] [address] * Echocardiogram complete w contrast and 3D if needed (03/18/2017 11:15 AM) Component Value Ref Range Velocity Ratio (V1/V2) 0.63 m/s IVS,d 1.30 (A) 0.6 - 1.2 cm EF 70.24 % LVPWD,d 1.26 cm AoV Mean PG 4.28 mmHg AV LVOT peak gradient 3.08 mmHg MV mean gradient 3.57 mmHg MV valve area p 1/2 3.09 cm2 method PV Pk Grad 3.80 mmHg E/A ratio 0.98 E wave decelartion time 245.66 msec LVOT Diam,S 1.95 cm LVOT area 2.98 cm2 LVOT Vmax 0.88 m/s LVOT VTI 0.21 m AoV Peak PG 7.49 mmHg MV Peak E Martín 1.24 m/s MV stenosis pressure 1/2 71.24 ms time MV Peak A Martín 1.26 m/s AoV Area, Vmax 1.89 cm2 AoV Area, VTI 2.14 cm2 AoV Vmax 1.39 m/s IVS/LVPW,2D 1.03 Left Atrium Dimension 3.58 cm Anterior LV,d 4.43 cm LV,s 2.68 cm PV VMAX 0.97 m/s TR Vpeak 2.09 mm/s MV E A ratio 0.98 mmHg TR pk grad 17.46 mmHg MR peak grad 7.51 mmHg Ao Root Diameter 2.87 cm LV SYS VOL 26.50 ml LV STEPHENSON VOL 89.05 ml LV SV Teich 2D 62.55 ml LV Vol s Teich PSAX 26.50 ml LVOT CO 4.47 l/min LVOT HR for LVOT CO 69.83 bpm MV Vmax 1.37 m MV VTI Tips 0.36 m AoV Vmn 0.98 IVS s 2D 1.46 LV FS Cube 2D 39.51 LV FS Teich 2D 39.51 Ao Root Diameter 2.87 cm AoV VTI 0.31 m LV EF,2D 77.86 % MV AE ratio 1.02 LVOT Vmn 0.57 Aov area Vmn 1.79 cm2 LVOT mean grad 1.56 mmHg MAX Pred HR 150.01 85 of MPHR 127.51 Calc MPHR 150.01 bpm IVS pct thck PLAX 13.09 % LV SV Cube 2D 67.64 ml LV vol d cube 2D 86.87 ml LV vol s cube 2D 19.23 ml LVPW pct thck PLAX 53.62 % LVPW s PLAX 1.93 cm MV Decel slope 5.04 m/s2 Pred Exer Dur R1 6.83 Pred METS R1 5.60 Specimen Performing Laboratory [facility] [address] [place] [address] Narrative The left ventricle chamber size is normal. Left Ventricular ejection fraction is 60 - 65%. Spectral Doppler shows impaired relaxation pattern of left ventricular diastolic filling. The anterior leaflet is moderate thickened and/or calcified. There is a mild prolapse of the mitral valve. Mild mitral valve stenosis. * MRI Brain Wo Contrast (03/17/2017 4:29 PM) Specimen Performing Laboratory [facility] [address] [place] [address] Narrative EXAMINATION:MRI BRAIN WO CONTRAST CLINICAL HISTORY: ABNORMAL GAIT (ATAXIA), Pt with stage 4 kidney disease sudden onset altered gaitand abnormal Hints Exam. Please eval for cerebellar stroke COMPARISON:CT brain 03/17/2017. TECHNIQUE: Multiplanar multisequence MRI imaging of the brain was acquired without IV Gadolinium was performed. FINDINGS: The brain is normal in signal and configuration. No acute infarct or intracerebral hemorrhage is seen. No extra-axial blood or fluid collection is present. Mild chronic ischemic small vessel white matter disease is seen. Bilateral basal ganglia calcifications are noted. No intracranial mass is identified. The brain stem, posterior fossa and cervicomedullary junction are preserved. The pituitary gland is unremarkable. No midline shift is seen. The ventricles, sulci, and cisterns are age-appropriate in size and configuration. Flow voids of the major intracranial vessels are intact. Mild mucosal thickening of the ethmoid air cells is noted. The visualized paranasal sinuses and mastoid air cells are otherwise unremarkable. Orbits and soft tissues are unremarkable. No abnormality of the skull base or calvarium is identified. IMPRESSION: No evidence of acute infarction, hemorrhage, or mass lesion. [id number] Procedure Note Hm Interface, Radiology Results Incoming - 03/17/2017 4:39 PM CDT EXAMINATION: MRI BRAIN WO CONTRAST CLINICAL HISTORY: ABNORMAL GAIT (ATAXIA), Pt with stage 4 kidney disease sudden onset altered gait and abnormal Hints Exam. Please eval for cerebellar stroke COMPARISON: CT brain 03/17/2017. TECHNIQUE: Multiplanar multisequence MRI imaging of the brain was acquired without IV Gadolinium was performed. FINDINGS: The brain is normal in signal and configuration. No acute infarct or intracerebral hemorrhage is seen. No extra-axial blood or fluid collection is present. Mild chronic ischemic small vessel white matter disease is seen. Bilateral basal ganglia calcifications are noted. No intracranial mass is identified. The brain stem, posterior fossa and cervicomedullary junction are preserved. The pituitary gland is unremarkable. No midline shift is seen. The ventricles, sulci, and cisterns are age-appropriate in size and configuration. Flow voids of the major intracranial vessels are intact. Mild mucosal thickening of the ethmoid air cells is noted. The visualized paranasal sinuses and mastoid air cells are otherwise unremarkable. Orbits and soft tissues are unremarkable. No abnormality of the skull base or calvarium is identified. IMPRESSION: No evidence of acute infarction, hemorrhage, or mass lesion. [id number] * Beta hydroxybutyrate (03/11/2017 5:58 PM) Component Value Ref Range Beta hydroxybutyrate 0.10 0.02 - 0.27 mmol/L Specimen Performing Laboratory Blood [facility] DEPARTMENT OF PATHOLOGY AND GENOMIC MEDICINE [address] [place] [address] [place] [id number] * Total iron binding capacity (09/23/2016 4:14 PM) Component Value Ref Range Iron level 35 (L) 76 - 198 ug/dL Iron binding capacity 303 260 - 460 ug/dL % Saturation 11.6 (L) 15.0 - 50.0 % Specimen Performing Laboratory [facility] DEPARTMENT OF PATHOLOGY AND GENOMIC MEDICINE [address] [place] [address] [place] [id number] * [place] lambda free light chain with ratio (09/23/2016 4:14 PM) Component Value Ref Range Lambda light chain 42.24 (H) 5.70 - 26.30 mg/L [place] light chain 103.66 (H) 3.30 - 19.40 mg/L [place] lambda ratio 2.45 (H) 0.26 - 1.65 Specimen Performing Laboratory [facility] DEPARTMENT OF PATHOLOGY AND GENOMIC MEDICINE [address] [place] [address] * Transferrin level (09/23/2016 4:14 PM) Component Value Ref Range Transferrin 224 200 - 360 mg/dL Specimen Performing Laboratory [facility] DEPARTMENT OF PATHOLOGY AND GENOMIC MEDICINE [address] [place] [address] * Serum electrophoresis (09/23/2016 4:14 PM) Component Value Ref Range Protein 6.3 6.3 - 8.3 g/dL Comment: Newborn4.6-7.0 g/dL 1 week4.4-7.6 g/dL 7 months-1year5.1-7.3 g/dL 1-2 years5.6-7.5 g/dL >3 years6.0-8.0 g/dL 18-1506.3-8.3 g/dL SPE albumin 3.86 (L) 4.00 - 5.30 g/dL SPE alpha 1 0.14 0.10 - 0.25 g/dL SPE alpha 2 0.70 0.58 - 0.84 g/dL SPE beta 0.84 0.50 - 1.10 g/dL SPE gamma 0.76 0.60 - 1.30 g/dL SPE extended See Comment interpretation Comment: Albumin is decreased suggesting protein malnutrition although this may be a normal finding in the elderly. SPE interpretation See CommentComment: Maude Silva MD, Tati Soni MD Specimen Performing Laboratory [facility] DEPARTMENT OF PATHOLOGY AND GENOMIC MEDICINE [address] [place] [address] * LDH (09/23/2016 4:14 PM) Component Value Ref Range LDH 166 81 - 234 U/L Specimen Performing Laboratory [facility] DEPARTMENT OF PATHOLOGY AND GENOMIC MEDICINE [address] [place] [address] * Folate level (09/23/2016 4:14 PM) Component Value Ref Range Folate 12.7 3.4 - 20.0 ng/mL Specimen Performing Laboratory [facility] DEPARTMENT OF PATHOLOGY AND GENOMIC MEDICINE [address] [place] [address] * Ferritin level (09/23/2016 4:14 PM) Component Value Ref Range Ferritin level 43 10 - 125 ng/mL Specimen Performing Laboratory [facility] DEPARTMENT OF PATHOLOGY AND GENOMIC MEDICINE [address] [place] [address] * Vitamin B12 level (09/23/2016 4:14 PM) Component Value Ref Range Vitamin B12 209 (L) 231 - 931 pg/mL Comment: Significant overlap exists between normal and deficiency states. However, most patients with deficiencies will have Serum B12 <200 pg/mL. Specimen Performing Laboratory [facility] DEPARTMENT OF PATHOLOGY AND GENOMIC MEDICINE [address] [place] [address] * Beta-2 microglobulin (09/23/2016 4:14 PM) Component Value Ref Range Beta-2 microglobulin 7.0 (H) 0.8 - 2.2 mg/L Specimen Performing Laboratory [facility] DEPARTMENT OF PATHOLOGY AND GENOMIC MEDICINE [address] [place] [phone] * Cv exercise treadmill stress (no imaging) (09/23/2016 10:40 AM) Component Value Ref Range Resting HR 55 Resting BP 142 Peak MET Achieved 1.0 Protocol Name LEXISCAN Time in Exercise Phase 00:00:53 Max Systolic BP 148 Max Diastolic BP 65 Max Heart Rate 68 Max Predicted Heart Rate 151 Target HR Formula (220 - Age)*85% Test Indication Arrhy During Ex none ECG Interp Before EX abnormal ECG Interp During Ex none Ex Summary Comment Normal stress test, MYOVIEW TO FOLLOW Chest Pain Statement limiting Overall HR Response to appropriate Exercise Overall BP Response To normal resting BP - appropriate response Exercise Reason for Termination Protocol Completed... Stress Test Impression Normal stress test, Myoview to follow-Patient c/o left shoulder pain, shortness of breath. resolved by end of study. -- Specimen Performing Laboratory [facility] MUSE [address] [place] [id number] * Magnesium level (09/23/2016 5:19 AM) Component Value Ref Range Magnesium 1.90 1.60 - 2.40 mg/dL Specimen Performing Laboratory [facility] DEPARTMENT OF PATHOLOGY AND GENOMIC MEDICINE [address] [place] [phone] * Myoglobin (09/22/2016 10:03 PM) Only the most recent of 2 results within the time period is included. Component Value Ref Range Myoglobin 141.0 (H) 9.0 - 82.5 ng/mL Specimen Performing Laboratory [facility] DEPARTMENT OF PATHOLOGY AND GENOMIC MEDICINE [address] [place] [id number] * CK-MB (09/22/2016 10:03 PM) Only the most recent of 3 results within the time period is included. Component Value Ref Range CK-MB 1.3 0.5 - 3.2 ng/mL Specimen Performing Laboratory [facility] DEPARTMENT OF PATHOLOGY AND GENOMIC MEDICINE [address] [place] [phone] * Echocardiogram complete w contrast and 3D if needed (09/22/2016 1:55 PM) Specimen Performing Laboratory [facility] [address] [place] [phone] Narrative Transthoracic Echocardiogram Report [address] [place] [address] Name:LAYO BOBO Sex: F Date: 09/22/2016 Encounter: [id number]: 1945 Time: 1:55:39 PM 71 yearsHeight: 69 in Room #:OPTU-03 Weight: 200.0 lbs BP:187/79 mmHg BSA: 2.1 m Ref. Physician:ISAAC MATTHEWS Public Health Representative: Rey Ogden Indications: CHEST PAIN Study Details: Complete Echocardiogram. The images were of adequate diagnostic quality. The patient was awake. Report Creation: 09/22/2016 at 3:34:01 PM Summary: 1. Left ventricular ejection fraction is low normal, estimated at 50-55%. 2. Moderate concentric left ventricular hypertrophy. 3. Pseudonormal pattern of LV diastolic filling. 4. Moderately dilated left atrium. 5. Mild mitral annular calcification. 6. Mild mitral stenosis. 7. Mild mitral valve regurgitation. 8. Mild tricuspid valve regurgitation. 9. Mildly elevated pulmonary artery systolic pressure. Interpretation: Left Ventricle: The left ventricular chamber size is Normal. Left ventricular ejection fraction is 50-55%. Moderate concentric left ventricular hypertrophy. Right Ventricle: The right ventricular size is normal. Global RV systolic function is normal. Left Atrium: The left atrium is moderately dilated. Right Atrium: The right atrium is normal. Aortic Valve: The aortic valve is not well visualized. No evidence of aortic valve stenosis with a valve area of 2.27 cm and a mean gradient of 5.0 mmHg. No evidence of significant aortic valve regurgitation. Mitral Valve: The mitral valve appears thickened. Mild mitral annular calcification. Mild mitral valve stenosis. Mild mitral valve regurgitation. Tricuspid Valve: The tricuspid valve is not well visualized. Mild tricuspid valve regurgitation. Pulmonic Valve: The pulmonic valve is not well seen. Diastology: Spectral Doppler shows pseudonormal pattern of LV diastolic filling. Pericardium: No pericardial effusion seen. Aorta: The aorta was not well seen. Pulmonary Artery: The tricuspid regurgitant velocity is 2.68 m/s, and with an assumed right atrial pressure of 10 mmHg, the estimated right ventricular systolic pressure is 38.8 mmHg. Measurements: Dimensions(2D) In cm Normals DimensionsIn cm Normals Aortic Root3.20 cm 2.0-3.7cm Left Atrium(ES) 4.50 cm 1.9-4.0cm Left Ventricle LA Volume End Diastole 4.2 cm3.7-5.6cm RV Diastole 0-7- 2.3 cm End Systole2.6 cm1.8-4.2cm IVS(D) 1.26 cm 0.6-1.1cm LVPW(D)1.4 cm0.6-1.1cm LV %FS 37.8 % LVEF(2-D)76 %>50% LV Diastolic Function: MV Peak E: 1.37 m/s Decel Time: 143 msec MV Peak A: 1.25 m/s E/A Ratio: 1.09 Spectral Doppler Analysis (Where Applicable): Mitral Valve: MV Max Martín: 1.56 m/s MV P1/2 Time: 41.36 msec MV Mean Grad: 2.9 mmHg MV Area, PHT: 5.32 cm Aortic Valve: AoV Max Martín:1.57 m/s AoV Peak P.8 mmHg AoV Mean P.0 mmHg LVOT Vmax:0.86 m/s LVOT VTI: 0.21 m LVOT Diameter: 2.27 cm AoV Area, Vmax: 2.21 cm AoV Area VTI: 2.27 cm AoV Area Vmn:2.39 cm Tricuspid Valve and PA/RV Systolic Pressure: TR Max Velocity: 2.68 m/s RA Pressure: 10 mmHg RVSP/PASP: 38.8 mmHg Pulmonic Valve: PV Max Velocity: 0.90 m/s PV Max P.3 mmHg PV Mean PG: Pulmonic Insufficiency: Final Procedure Note Interface, Radiology Results In - 09/22/2016 7:01 PM CDT Transthoracic Echocardiogram Report [address] [place] [address] Name: LAYO BOBO Sex: F Date: 09/22/2016 Encounter: [id number] : 1945 Time: 1:55:39 PM Age: 71 years Height: 69 in Room #: OPTU-03 Weight: 200.0 lbs BP: 187/79 mmHg BSA: 2.1 m Ref. Physician: ISAAC MATTHEWS Public Health Representative: Rey Ogden Indications: CHEST PAIN Study Details: Complete Echocardiogram. The images were of adequate diagnostic quality. The patient was awake. Report Creation: 09/22/2016 at 3:34:01 PM Summary: 1. Left ventricular ejection fraction is low normal, estimated at 50-55%. 2. Moderate concentric left ventricular hypertrophy. 3. Pseudonormal pattern of LV diastolic filling. 4. Moderately dilated left atrium. 5. Mild mitral annular calcification. 6. Mild mitral stenosis. 7. Mild mitral valve regurgitation. 8. Mild tricuspid valve regurgitation. 9. Mildly elevated pulmonary artery systolic pressure. Interpretation: Left Ventricle: The left ventricular chamber size is Normal. Left ventricular ejection fraction is 50-55%. Moderate concentric left ventricular hypertrophy. Right Ventricle: The right ventricular size is normal. Global RV systolic function is normal. Left Atrium: The left atrium is moderately dilated. Right Atrium: The right atrium is normal. Aortic Valve: The aortic valve is not well visualized. No evidence of aortic valve stenosis with a valve area of 2.27 cm and a mean gradient of 5.0 mmHg. No evidence of significant aortic valve regurgitation. Mitral Valve: The mitral valve appears thickened. Mild mitral annular calcification. Mild mitral valve stenosis. Mild mitral valve regurgitation. Tricuspid Valve: The tricuspid valve is not well visualized. Mild tricuspid valve regurgitation. Pulmonic Valve: The pulmonic valve is not well seen. Diastology: Spectral Doppler shows pseudonormal pattern of LV diastolic filling. Pericardium: No pericardial effusion seen. Aorta: The aorta was not well seen. Pulmonary Artery: The tricuspid regurgitant velocity is 2.68 m/s, and with an assumed right atrial pressure of 10 mmHg, the estimated right ventricular systolic pressure is 38.8 mmHg. Measurements: Dimensions(2D) In cm Normals Dimensions In cm Normals Aortic Root 3.20 cm 2.0-3.7cm Left Atrium(ES) 4.50 cm 1.9-4.0cm Left Ventricle LA Volume End Diastole 4.2 cm 3.7-5.6cm RV Diastole 0-7-2.3 cm End Systole 2.6 cm 1.8-4.2cm IVS(D) 1.26 cm 0.6-1.1cm LVPW(D) 1.4 cm 0.6-1.1cm LV %FS 37.8 % LVEF(2-D) 76 % >50% LV Diastolic Function: MV Peak E: 1.37 m/s Decel Time: 143 msec MV Peak A: 1.25 m/s E/A Ratio: 1.09 Spectral Doppler Analysis (Where Applicable): Mitral Valve: MV Max Martín: 1.56 m/s MV P1/2 Time: 41.36 msec MV Mean Grad: 2.9 mmHg MV Area, PHT: 5.32 cm Aortic Valve: AoV Max Martín: 1.57 m/s AoV Peak P.8 mmHg AoV Mean P.0 mmHg LVOT Vmax: 0.86 m/s LVOT VTI: 0.21 m LVOT Diameter: 2.27 cm AoV Area, Vmax: 2.21 cm AoV Area VTI: 2.27 cm AoV Area Vmn: 2.39 cm Tricuspid Valve and PA/RV Systolic Pressure: TR Max Velocity: 2.68 m/s RA Pressure: 10 mmHg RVSP/PASP: 38.8 mmHg Pulmonic Valve: PV Max Velocity: 0.90 m/s PV Max P.3 mmHg PV Mean PG: Pulmonic Insufficiency: Final * US Renal Doppler (09/09/2016 2:42 PM) Specimen Performing Laboratory [facility] [address] [place] [address] Narrative PROCEDURE: ULTRASOUND RENAL ARTERIAL FLOW CLINICAL HISTORY:CKD, HTN - EG chronic renal failure stage IV. COMPARISON:None. TECHNIQUE: Doppler interrogation of the renal arteries were performed with calculation of resistive indices, aortic peak systolic and renal peak systolic velocity assessment, and acceleration timing during the systolic phase. FINDINGS: Doppler interrogation of the peak systolic velocity of the right renal artery is 54 cm/sec and the left renal artery is 62 cm/s evaluating the proximal, mid, and distal segments (abnormal is greater than 180-200 cm/s). The renal peak systolic velocity to the aortic peak systolic velocity ratio for the right kidney is 0.6 and the left kidney is 0.7 (60-99% stenosis is greater than or equal to 3.5). Acceleration time of the superior, mid, and lower pole of the kidneys (normal range less than or equal to 0.07 seconds) and Acceleration Index (normal is greater than 300 cm/s squared): RIGHT KIDNEY: Please note that the renal arteries are secured by overlying bowel gas and cannot be evaluated. The acceleration index (AI) is in centimeters per second. Superior: Not available seconds with the resistive index 0.67 and acceleration index not available Mid:Not available seconds with the resistive index 0.62 and acceleration index not available Lower:Not available seconds with the resistive index 0.7 and acceleration index not available LEFT KIDNEY: Superior:Not available seconds with the resistive index 0.67 and acceleration index not available Mid:Not available seconds with the resistive index 0.7 and acceleration index not available Lower:Not available seconds with the resistive index 0.61 and acceleration index not available Abnormal resistive indexes greater than or equal to 5% lower than the contralateral side. Normal resistive index is between 0.6 and 0.8. IMPRESSION: Limited study due to obscuration of the renal arteries by overlying bowel gas. The resistive indices are within normal limits in both kidneys. No abnormal velocities are demonstrated in the aorta or proximal right and left renal arteries. [id number] . Procedure Note Hm Interface, Radiology Conversion - 09/09/2016 2:53 PM CDT PROCEDURE: ULTRASOUND RENAL ARTERIAL FLOW CLINICAL HISTORY: CKD, HTN - EG chronic renal failure stage IV. COMPARISON: None. TECHNIQUE: Doppler interrogation of the renal arteries were performed with calculation of resistive indices, aortic peak systolic and renal peak systolic velocity assessment, and acceleration timing during the systolic phase. FINDINGS: Doppler interrogation of the peak systolic velocity of the right renal artery is 54 cm/sec and the left renal artery is 62 cm/s evaluating the proximal, mid, and distal segments (abnormal is greater than 180-200 cm/s). The renal peak systolic velocity to the aortic peak systolic velocity ratio for the right kidney is 0.6 and the left kidney is 0.7 (60-99% stenosis is greater than or equal to 3.5). Acceleration time of the superior, mid, and lower pole of the kidneys (normal range less than or equal to 0.07 seconds) and Acceleration Index (normal is greater than 300 cm/s squared): RIGHT KIDNEY: Please note that the renal arteries are secured by overlying bowel gas and cannot be evaluated. The acceleration index (AI) is in centimeters per second. Superior: Not available seconds with the resistive index 0.67 and acceleration index not available Mid: Not available seconds with the resistive index 0.62 and acceleration index not available Lower: Not available seconds with the resistive index 0.7 and acceleration index not available LEFT KIDNEY: Superior: Not available seconds with the resistive index 0.67 and acceleration index not available Mid: Not available seconds with the resistive index 0.7 and acceleration index not available Lower: Not available seconds with the resistive index 0.61 and acceleration index not available Abnormal resistive indexes greater than or equal to 5% lower than the contralateral side. Normal resistive index is between 0.6 and 0.8. IMPRESSION: Limited study due to obscuration of the renal arteries by overlying bowel gas. The resistive indices are within normal limits in both kidneys. No abnormal velocities are demonstrated in the aorta or proximal right and left renal arteries. [id number] . after 07/30/2016 Insurance Payer Benefit Subscriber ID Type Phone Address Plan / Group [employer] MEDICARE AET [id number] O MEDICARE HMO/O [facility] [place] [address]
--- OUTSIDE RECORDS SUMMARY | 2017-07-31 14:37 | XMS REPORT ---
Author Author [facility] Address Unknown Phone Unavailable Care Team Providers Care Manager French Name Role Phone CBRUIZ, SABRINA Unavailable Unavailable JOSS KELLOGGYN Unavailable Unavailable Problems This patient has no known problems. Allergies, Adverse Reactions, Alerts This patient has no known allergies or adverse reactions. Medications This patient has no known medications. Results Test Description Test Time Test Comments Text Results Atomic Results Result Comments STOOL CULTURE + SHIGA TOXIN 2017-04-10 13:07:00 CULTURE (BEAKER) (test ftpf=6767) No Salmonella, Shigella or Campylobacter isolated Unable to test for Shiga Toxin 1 due to insufficient growth of specimen.Unable to test for Shiga Toxin 2 due to insufficient growth of specimen.Resubmit new specimen if clinically indicated.STOOL PATH [id number] 12:52:00* Test Item Value Reference Range Comments PATHOGEN EXAM CHARGED (BEAKER) (test pgec=6905) Done OCCULT BLOOD, [id number] 18:45:00* Test Item Value Reference Range Comments FECAL OCCULT BLOOD (BEAKER) (test jhhj=479) Positive Negative FECAL [id number] 18:44:00* Test Item Value Reference Range Comments FECAL LEUKOCYTES (BEAKER) (test liwn=056) No fecal leukocytes seen No fecal leukocytes seen POCT-GLUCOSE [id number] 17:12:00* Test Item Value Reference Range Comments POC-GLUCOSE METER (BEAKER) (test rywu=2372) 275 mg/dL 70-110 TESTED AT [facility] [address] [facility] [address] PET, CARDIAC PERFUSION MULTIPLE STUDIES, REST AND [id number] 17:02: 00Reason for exam:->chest painFINAL REPORT PROCEDURE: Rest/Stress MYOCARDIAL PERFUSION PET with regadenoson\XA9\ CPT CODE: 69075 INDICATION: Chest pain HISTORY: Cardiac risk factors: Diabetes, hypertension, dyslipidemia. Other cardiovascular history: Coronary artery disease status post PCI in 2007, atrial fibrillation. Recent cardiac symptoms: Chest pain. Current cardiovascular-related medications Clopidogrel, carvedilol, lisinopril, isosorbide mononitrate, furosemide, simvastatin. PROTOCOL: Limited low-dose CT imaging was performed for attenuation correction. 40.1 mCi of Rb-82 chloride was injected iv at rest, and gated PET (positron emission tomography) images were obtained. Subsequently, 40.1 mCi of Rb-82 chloride was injected iv at expected peak pharmacologic effect, and gated PET images were obtained. PRELIMINARY STRESS TEST DATA FROM NONINVASIVE CARDIOLOGY: Pharmacologic stress was by 10-second iv infusion of 0.4 mg of regadenoson. Radiotracer was injected 30 seconds after start of stress. Heart rate was 68 beats/min at rest and 75 beats/min (50% of MPHR) at tracer injection. BP was 114 /50 mmHg at rest and 109/41 mmHg at tracer injection. Stress was stopped for predetermined endpoint. The patient experienced dyspnea and flushing; treatment was not required. Preliminary ECG evaluation revealed sinus rhythm with nonspecific ST abnormality at rest and no ischemic changes with stress. (Final ECG interpretation and other stress and monitoring data are reported separately by Cardiology.) IMAGING FINDINGS: Study quality is good. Images obtained after rest and stress injections show normal LV activity. LV and RV volumes appear normal. Gated images obtained at rest and with stress show normal LV wall motion and thickening. LVEF at rest is 59%. LVEF at stress is 63%. IMPRESSION: 1. Normal study. 2. Appropriate pharmacologic stress. 3. Normal myocardial perfusion. 4. Normal resting LV function. No deterioration of function is noted with pharmacologic stress. 5. Normal extracardiac tracer distribution. 6. No previous [facility] study for comparison. NONINVASIVE RISK STRATIFICATION: The above findings are considered low risk (<1% annual or FL) based on the following criterion:- Normal or small myocardial perfusion defect at rest or with stress encumbering <5% of the myocardium- Normal stress or no change of limited resting wall motion abnormalities during stress(JACC. 2017;69(56):1892-44.) Signed: Hallie Reyes Verified Date/Time: 2016 17:02:21 Reading Location: [address] Reading Room - GLUCOSE [id number] 12:23:00* Test Item Value Reference Range Comments POC-GLUCOSE METER (BEAKER) (test tucf=8213) 259 mg/dL 70-110 TESTED AT [facility] [address] [facility] [address] POCT-GLUCOSE [id number] 08:36:00* Test Item Value Reference Range Comments POC-GLUCOSE METER (BEAKER) (test hqvc=7026) 203 mg/dL 70-110 TESTED AT [place] [id number] [facility] [address] TROPONIN [id number] 08:32:00* Test Item Value Reference Range Comments TROPONIN I (BEAKER) (test ruqk=786) 0.04 ng/mL 0.00-0.03 Troponin I (TnI) levels must be interpreted in the context of the presenting symptoms and the clinical findings. Elevated TnI levels indicate myocardial damage, but are not specific for ischemic heart disease. Elevated TnI levels are seen in patients with other cardiac conditions (including myocarditis and congestive heart failure), and slight TnI elevations occur in patients with other conditions, including sepsis, renal failure, acidosis, acute neurological disease, and persistent tachyarrhythmia.BASIC METABOLIC [id number] 06:05:00 * Test Item Value Reference Range Comments SODIUM (BEAKER) (test aioh=103) 137 meq/L 136-145 POTASSIUM (BEAKER) (test rxlg=546) 4.4 meq/L 3.5-5.1 CHLORIDE (BEAKER) (test ltfo=512) 105 meq/L 98-107 CO2 (BEAKER) (test lpjz=899) 22 meq/L 22-29 BLOOD UREA NITROGEN (BEAKER) (test krlp=884) 38 mg/dL 7-21 CREATININE (BEAKER) (test hhyp=715) 2.64 mg/dL 0.57-1.25 GLUCOSE RANDOM (BEAKER) (test ibcn=857) 173 mg/dL 70-105 CALCIUM (BEAKER) (test cuwj=208) 8.6 mg/dL 8.4-10.2 EGFR (BEAKER) (test gghj=7698) 18 mL/min/1.73 sq m ESTIMATED GFR IS NOT ACCURATE CREATININE CLEARANCE IN PREDICTING GLOMERULAR FILTRATION RATE. ESTIMATED GFR IS NOT APPLICABLE FOR DIALYSIS PATIENTS. [id number] 06:03:00* Test Item Value Reference Range Comments MAGNESIUM (BEAKER) (test mrcj=933) 1.6 mg/dL 1.6-2.6 CBC W/PLT COUNT & AUTO [id number] 05:18:00* Test Item Value Reference Range Comments WHITE BLOOD CELL COUNT (BEAKER) (test vexr=540) 6.9 K/ L 3.5-10.5 RED BLOOD CELL COUNT (BEAKER) (test luly=062) 3.49 M/ L 3.93-5.22 HEMOGLOBIN (BEAKER) (test apfp=787) 10.1 GM/DL 11.2-15.7 HEMATOCRIT (BEAKER) (test jgdb=602) 30.9 % 34.1-44.9 MEAN CORPUSCULAR VOLUME (BEAKER) (test vygk=012) 88.5 fL 79.4-94.8 MEAN CORPUSCULAR HEMOGLOBIN (BEAKER) (test hlwx=452) 28.9 pg 25.6-32.2 MEAN CORPUSCULAR HEMOGLOBIN CONC (BEAKER) (test pmya=008) 32.7 GM/DL 32.2- 35.5 RED CELL DISTRIBUTION WIDTH (BEAKER) (test unan=996) 13.6 % 11.7-14.4 PLATELET COUNT (BEAKER) (test qbrk=998) 207 K/CU MM 150-450 MEAN PLATELET VOLUME (BEAKER) (test imva=384) 9.6 fL 9.4-12.3 NUCLEATED RED BLOOD CELLS (BEAKER) (test qqwt=203) 0 /100 WBC 0-0 NEUTROPHILS RELATIVE PERCENT (BEAKER) (test jvcb=148) 53 % LYMPHOCYTES RELATIVE PERCENT (BEAKER) (test rffm=824) 39 % MONOCYTES RELATIVE PERCENT (BEAKER) (test glnm=197) 6 % EOSINOPHILS RELATIVE PERCENT (BEAKER) (test xhji=355) 2 % BASOPHILS RELATIVE PERCENT (BEAKER) (test mxib=469) 0 % NEUTROPHILS ABSOLUTE COUNT (BEAKER) (test xwwd=549) 3.65 K/ L 1.56-6.13 LYMPHOCYTES ABSOLUTE COUNT (BEAKER) (test yfgf=739) 2.69 K/ L 1.18-3.74 MONOCYTES ABSOLUTE COUNT (BEAKER) (test sioo=131) 0.39 K/ L 0.24-0.36 EOSINOPHILS ABSOLUTE COUNT (BEAKER) (test lvga=146) 0.16 K/ L 0.04-0.36 BASOPHILS ABSOLUTE COUNT (BEAKER) (test soho=194) 0.01 K/ L 0.01-0.08 IMMATURE GRANULOCYTES-RELATIVE PERCENT (BEAKER) (test lkby=2037) 0 % 0-1 U/S, RENAL WITH [id number] 05:15:00Reason for exam:->CRI MIKE VASCULAR HTNFINAL REPORT U/S, RENAL WITH DOPPLER INDICATION: CRI MIKE VASCULAR HTN COMPARISON: None TECHNIQUE: Real-time transabdominal renal ultrasound. Color and spectral Doppler examination of the renal vasculature. FINDINGS: Right kidney: Size: 11.7 x 4.2 x 5.4 cm. Parenchyma: Normal echogenicity. No cysts. No stones. Hydronephrosis: None. Left kidney : Size: 12.0 x 4.9 x 5.0 cm. Parenchyma: Normal echogenicity. No cysts. No stones. Hydronephrosis: None. Renal Vasculature: Doppler interrogation reveals preserved vascular flow in the main renal arteries and veins bilaterally. Urinary bladder: Unremarkable. Ureteric jets were demonstrated bilaterally. Color Doppler and spectral ultrasound imaging:Patent main renal artery and vein bilaterally. PSV ratio right: 2.7 PSV ratio left: 1.7 Acceleration times: Normal. Resistive Indices, Right: Upper: 0.74 Middle: 0.68 Lower: 0.66 Resistive Indices, Left: Upper: 0.68 Middle : 0.7 Lower: 0.72 IMPRESSION: Unremarkable sonographic examination of the kidneys. Normal renal vasculature. No sonographic evidence for renal artery stenosis. Signed: JR Kaur Robert MDReport Verified Date/Time: 2016 05:15:25 Reading Location: [facility] C013Y CT Body Reading Room - GLUCOSE [id number] 22:03:00* Test Item Value Reference Range Comments POC-GLUCOSE METER (LINDSEY) (test hbbi=4850) 254 mg/dL 70-110 TESTED AT [address] [address] CREATINE KINASE (CK), TOTAL AND [id number] 19:01:00* Test Item Value Reference Range Comments CREATINE KINASE TOTAL (BEAKER) (test ficm=412) 44 U/L 29-200 CREATINE KINASE-MB (BEAKER) (test omgv=778) 1.0 ng/mL 0.0-6.6 CREATINE KINASE-MB INDEX (BEAKER) (test ottb=447) 2.3 % CK-MB Reference Range:<6.7 Normal6.7-10.0 Borderline>10.0 AbnormalTROPONIN [id number] 19:01:00* Test Item Value Reference Range Comments TROPONIN I (BEAKER) (test qpdu=565) 0.06 ng/mL 0.00-0.03 Troponin I (TnI) levels must be interpreted in the context of the presenting symptoms and the clinical findings. Elevated TnI levels indicate myocardial damage, but are not specific for ischemic heart disease. Elevated TnI levels are seen in patients with other cardiac conditions (including myocarditis and congestive heart failure), and slight TnI elevations occur in patients with other conditions, including sepsis, renal failure, acidosis, acute neurological disease, and persistent tachyarrhythmia.HEMOGLOBIN [id number] 17:41:00* Test Item Value Reference Range Comments HEMOGLOBIN A1C (BEAKER) (test ijqh=071) 10.1 % 4.3-6.1 CREATINE KINASE (CK), TOTAL AND [id number] 13:10:00* Test Item Value Reference Range Comments CREATINE KINASE TOTAL (BEAKER) (test efyq=709) 50 U/L 29-200 CREATINE KINASE-MB (BEAKER) (test stec=205) 1.1 ng/mL 0.0-6.6 CREATINE KINASE-MB INDEX (BEAKER) (test vrom=811) 2.2 % CK-MB Reference Range:<6.7 Normal6.7-10.0 Borderline>10.0 AbnormalTROPONIN [id number] 13:10:00* Test Item Value Reference Range Comments TROPONIN I (BEAKER) (test fgry=598) 0.06 ng/mL 0.00-0.03 Troponin I (TnI) levels must be interpreted in the context of the presenting symptoms and the clinical findings. Elevated TnI levels indicate myocardial damage, but are not specific for ischemic heart disease. Elevated TnI levels are seen in patients with other cardiac conditions (including myocarditis and congestive heart failure), and slight TnI elevations occur in patients with other conditions, including sepsis, renal failure, acidosis, acute neurological disease, and persistent tachyarrhythmia.CREATINE KINASE (CK), TOTAL AND [id number] 21:56:00* Test Item Value Reference Range Comments CREATINE KINASE TOTAL (BEAKER) (test yhyv=665) 52 U/L 29-200 CREATINE KINASE-MB (BEAKER) (test nymp=016) 1.4 ng/mL 0.0-6.6 CREATINE KINASE-MB INDEX (BEAKER) (test elnu=514) 2.7 % CK-MB Reference Range:<6.7 Normal6.7-10.0 Borderline>10.0 AbnormalTROPONIN [id number] 21:56:00* Test Item Value Reference Range Comments TROPONIN I (BEAKER) (test hzbw=930) 0.05 ng/mL 0.00-0.03 Troponin I (TnI) levels must be interpreted in the context of the presenting symptoms and the clinical findings. Elevated TnI levels indicate myocardial damage, but are not specific for ischemic heart disease. Elevated TnI levels are seen in patients with other cardiac conditions (including myocarditis and congestive heart failure), and slight TnI elevations occur in patients with other conditions, including sepsis, renal failure, acidosis, acute neurological disease, and persistent tachyarrhythmia.B-TYPE NATRIURETIC FACTOR (BNP) 21:56:00* Test Item Value Reference Range Comments B-TYPE NATRIURETIC PEPTIDE (BEAKER) (test yupu=858) 193 pg/mL 0-100 BASIC METABOLIC [id number] 21:49:00* Test Item Value Reference Range Comments SODIUM (BEAKER) (test bqfp=421) 137 meq/L 136-145 POTASSIUM (BEAKER) (test jijy=247) 5.1 meq/L 3.5-5.1 CHLORIDE (BEAKER) (test oyql=500) 105 meq/L 98-107 CO2 (BEAKER) (test jeix=676) 19 meq/L 22-29 BLOOD UREA NITROGEN (BEAKER) (test ycec=889) 32 mg/dL 7-21 CREATININE (BEAKER) (test veet=495) 2.94 mg/dL 0.57-1.25 GLUCOSE RANDOM (BEAKER) (test stvf=662) 269 mg/dL 70-105 CALCIUM (BEAKER) (test truq=540) 9.4 mg/dL 8.4-10.2 EGFR (BEAKER) (test eveg=4105) mL/min/1.73 sq m INSUFFICIENT CLINICAL DATA TO CALCULATE ESTIMATED GFR. [id number] 21:48:00* Test Item Value Reference Range Comments MAGNESIUM (BEAKER) (test sphm=594) 1.7 mg/dL 1.6-2.6 CBC W/PLT COUNT & AUTO [id number] 21:30:00* Test Item Value Reference Range Comments WHITE BLOOD CELL COUNT (BEAKER) (test ktds=319) 10.5 K/ L 3.5-10.5 RED BLOOD CELL COUNT (BEAKER) (test qkok=633) 3.96 M/ L 3.93-5.22 HEMOGLOBIN (BEAKER) (test itib=275) 11.1 GM/DL 11.2-15.7 HEMATOCRIT (BEAKER) (test jfzl=316) 35.1 % 34.1-44.9 MEAN CORPUSCULAR VOLUME (BEAKER) (test tihs=498) 88.6 fL 79.4-94.8 MEAN CORPUSCULAR HEMOGLOBIN (BEAKER) (test ozdl=041) 28.0 pg 25.6-32.2 MEAN CORPUSCULAR HEMOGLOBIN CONC (BEAKER) (test zeoi=696) 31.6 GM/DL 32.2- 35.5 RED CELL DISTRIBUTION WIDTH (BEAKER) (test nsck=815) 13.8 % 11.7-14.4 PLATELET COUNT (BEAKER) (test ckke=328) 256 K/CU MM 150-450 MEAN PLATELET VOLUME (BEAKER) (test jxrg=530) 9.4 fL 9.4-12.3 NUCLEATED RED BLOOD CELLS (BEAKER) (test hnnv=928) 0 /100 WBC 0-0 NEUTROPHILS RELATIVE PERCENT (BEAKER) (test cutv=733) 72 % LYMPHOCYTES RELATIVE PERCENT (BEAKER) (test qiju=939) 22 % MONOCYTES RELATIVE PERCENT (BEAKER) (test ordd=122) 5 % EOSINOPHILS RELATIVE PERCENT (BEAKER) (test zsbq=044) 1 % BASOPHILS RELATIVE PERCENT (BEAKER) (test fsoe=596) 0 % NEUTROPHILS ABSOLUTE COUNT (BEAKER) (test pvaz=191) 7.50 K/ L 1.56-6.13 LYMPHOCYTES ABSOLUTE COUNT (BEAKER) (test hqla=462) 2.26 K/ L 1.18-3.74 MONOCYTES ABSOLUTE COUNT (BEAKER) (test qpxz=650) 0.55 K/ L 0.24-0.36 EOSINOPHILS ABSOLUTE COUNT (BEAKER) (test oicd=030) 0.09 K/ L 0.04-0.36 BASOPHILS ABSOLUTE COUNT (BEAKER) (test tnbp=818) 0.04 K/ L 0.01-0.08 IMMATURE GRANULOCYTES-RELATIVE PERCENT (BEAKER) (test nzcn=1070) 1 % 0-1 RAD, CHEST, 1 VIEW, NON [id number] 20:52:00Reason for exam:->chest painFINAL REPORT HISTORY : chest pain. Comparison: 2009 Comment: Single portable view of the chest was obtained. The cardiac silhouette size is enlarged. There is a tortuous/ectatic thoracic aorta with some atherosclerotic calcification. Stable right-sided Port-A-Cath is in place. The patient is status post sternotomy. No pneumothorax, pleural effusion or focal infiltrate is seen. There is some linear likely scarring left midlung. A nonspecific linear density is also seen projecting over the right upper lung of unclear etiology/significance and could represent a vessel or some scar versus calcification. Signed: [facility] Verified Date/Time: 04/06/2017 20: 52:45 Reading Location: [address] Consult Reading Room T 2 VIEWS [place] [address] Patient Name: LAYO BOBO MR #: [id number] : 1945 Age/Sex: 72/F Req #: [id number] Adm Physician: Ordered by: SABRINA LOPEZ DPHerbert Report #: [id number] Location: [facility] Room/ Bed: Procedure: [id number] DX/CHEST 2 VIEWS Exam Date : 05/26/17 Exam Time: 1340 REPORT STATUS: Signed PROCEDURE: Frontal and lateral views of the chest. COMPARISON : None. INDICATIONS: PRE OPERTIVE CHEST X-RAY FOR FOOT SURGERY FINDINGS: Lines/tubes: Right subclavian tunneled chest port with tip projecting over the expected region of the superior vena cava. Lungs: The lungs are well inflated and clear. There is no evidence of pneumonia or pulmonary edema. Pleura: There is no pleural effusion or pneumothorax. Heart and mediastinum: The heart and the mediastinum are normal. Bones: No acute bony abnormality. Degenerative changes of the thoracic spine. Median sternotomy wires. IMPRESSION: No acute radiographic abnormality. Dictated by: Ellis Austin M.D. on 05/26/2017 at 15:01 Electronically approved by: Ellis Austin M.D. on 05/26/2017 at 15:01 Dictated By: ELLIS AUSTIN MD 1501 Transcribed By: MARCO ANTONIO on 05/26/17 1501 COPY TO: SABRINA LOPEZ DPM
--- OUTSIDE RECORDS SUMMARY | 2017-07-31 14:38 | XMS REPORT | Continuity of Care Document ---
Author Author [facility] Organization [facility] Address [address] [place] [address] Phone Unavailable Care Team Providers Care Business Sales Consultant Name Role Phone KARISHMA ALBRECHT MD PCP Unavailable Insurance Providers Guarantor Layo Bobo Address [id number] [place] [id number] Payer [employer] Medicare Replacement Policy Number [id number] Subscriber's Name Layo Bobo Relationship 18 Self / Same As Patient Group Number [id number] Group Name [facility] Effective Date 14 Advance Directives Directive Response Recorded Date/Time Does the patient have an advance directive? No 03/10/17 10:10am If yes, is advance directive on file with [facility]? No 03/10/17 10:10am If not on file with [facility] will patient provide a copy? No 03/10/17 10:10am Do you have a Directive to Physician? No 06/22/17 2:41pm Do you have a Medical Power of Foreign Language Professor? No 06/22/17 2:41pm Do you have an out of hospital Do Not Resuscitate Order? No 06/22/17 2:41pm Do you have any special needs we should be aware of? No 06/22/17 2:41pm Do you have a support person here with you today? No 06/22/17 2:41pm Did patient receive Notice of Privacy Practices? Yes 06/22/17 2:41pm Did patient receive patient rights and responsibilities? Yes 06/22/17 2:41pm Problems No problem information available. Medications No medication information available. Social History No social history information available. Hospital Discharge Instructions No hospital discharge instruction information available. Plan of Care Prescriptions See Medication Section Functional Status No functional status information available. Allergies, Adverse Reactions, Alerts No allergy information available. Immunizations No immunization information available. Vital Signs No vital sign information available. Results Laboratory Results Test Name Result Units Flags Reference Collection Date/Time Result Date/ Time Comments White Blood Count 11.98 x10e3/uL H 4.8-10.8 05/19/2017 12:45pm 2016 1:55pm Red Blood Count 3.95 x10e6/uL 3.6-5.1 05/19/2017 12:45pm 05/19/2017 1: 55pm Hemoglobin 11.6 g/dL L 12.0-16.0 05/19/2017 12:45pm 05/19/2017 1:55pm Hematocrit 33.8 % L 34.2-44.1 05/19/2017 12:45pm 05/19/2017 1:55pm Mean Corpuscular Volume 85.6 fL 81-99 05/19/2017 12:45pm 05/19/2017 1: 55pm Mean Corpuscular Hemoglobin 29.4 pg 28-32 05/19/2017 12:45pm 2016 1:55pm Mean Corpuscular Hemoglobin Concent 34.3 g/dL 31-35 05/19/2017 12:45pm 05/19/2017 1:55pm Red Cell Distribution Width 13.8 % 11.7-14.4 05/19/2017 12:45pm 2016 1:55pm Platelet Count 236 x10e3/uL 140-360 05/19/2017 12:45pm 05/19/2017 1: 55pm Neutrophils (%) (Auto) 75.0 % 38.7-80.0 05/19/2017 12:45pm 05/19/2017 1 :55pm Lymphocytes (%) (Auto) 19.5 % 18.0-39.1 05/19/2017 12:45pm 05/19/2017 1 :55pm Monocytes (%) (Auto) 4.1 % L 4.4-11.3 05/19/2017 12:45pm 05/19/2017 1: 55pm Eosinophils (%) (Auto) 0.9 % 0.0-6.0 05/19/2017 12:45pm 05/19/2017 1: 55pm Basophils (%) (Auto) 0.2 % 0.0-1.0 05/19/2017 12:45pm 05/19/2017 1: 55pm IM GRANULOCYTES % 0.3 % 0.0-1.0 05/19/2017 12:45pm 05/19/2017 1:55pm Neutrophils # (Auto) 9.0 H 2.1-6.9 05/19/2017 12:45pm 05/19/2017 1: 55pm Lymphocytes # (Auto) 2.3 1.0-3.2 05/19/2017 12:45pm 05/19/2017 1: 55pm Monocytes # (Auto) 0.5 0.2-0.8 05/19/2017 12:45pm 05/19/2017 1:55pm Eosinophils # (Auto) 0.1 0.0-0.4 05/19/2017 12:45pm 05/19/2017 1: 55pm Basophils # (Auto) 0.0 0.0-0.1 05/19/2017 12:45pm 05/19/2017 1:55pm Absolute Immature Granulocyte (auto 0.04 x10e3/uL 0-0.1 05/19/2017 12: 45pm 05/19/2017 1:55pm Erythrocyte Sedimentation Rate 71 mm/hr H 0-20 05/19/2017 12:45pm 2016 2:39pm Sodium Level 138 mmol/L 136-145 05/19/2017 12:45pm 05/19/2017 2:21pm Potassium Level 4.2 mmol/L 3.5-5.1 05/19/2017 12:45pm 05/19/2017 2: 21pm Chloride Level 104 mmol/L 98-107 05/19/2017 12:45pm 05/19/2017 2:21pm Carbon Dioxide Level 22 mmol/L -05/19/2017 12:45pm 05/19/2017 2: 21pm Anion Gap 16.2 mmol/L H 8-16 05/19/2017 12:45pm 05/19/2017 2:21pm Blood Urea Nitrogen 33 mg/dL H 7-26 05/19/2017 12:45pm 05/19/2017 2: 21pm Creatinine 2.59 mg/dL H 0.57-1.11 05/19/2017 12:45pm 05/19/2017 2:21pm BUN/Creatinine Ratio 13 6-25 05/19/2017 12:45pm 05/19/2017 2:21pm Estimat Glomerular Filtration Rate 18 ML/MIN L 60- 05/19/2017 12:45pm 2:21pm Ranges were taken from the National Kidney Disease Education Program and the National Kid[employer] Foundation literature. Reference ranges: 60 or greater: Normal 16-59 (for 3 consecutive months): Chronic kidney disease 15 or less: Kidney failure Glucose Level 311 mg/dL H 74-118 05/19/2017 12:45pm 05/19/2017 2:21pm Calcium Level 9.1 mg/dL 8.4-10.2 05/19/2017 12:45pm 05/19/2017 2:21pm Hemoglobin A1c Percent 9.9 % H 4.0-7.0 05/19/2017 12:45pm 05/19/2017 2: 07pm Total Bilirubin 0.7 mg/dL 0.2-1.2 05/19/2017 12:45pm 05/19/2017 2:21pm Aspartate Amino Transf (AST/SGOT) 9 IU/L 5-34 05/19/2017 12:45pm 2016 2:21pm Alanine Aminotransferase (ALT/SGPT) 9 IU/L 0-55 05/19/2017 12:45pm 2:21pm Total Protein 7.3 g/dL 6.5-8.1 05/19/2017 12:45pm 05/19/2017 2:21pm Albumin 3.1 g/dL L 3.5-5.0 05/19/2017 12:45pm 05/19/2017 2:21pm Globulin 4.2 g/dL H 2.3-3.5 05/19/2017 12:45pm 05/19/2017 2:21pm Albumin/Globulin Ratio 0.7 L 0.8-2.0 05/19/2017 12:45pm 05/19/2017 2: 21pm Alkaline Phosphatase 107 IU/L 40-150 05/19/2017 12:45pm 05/19/2017 2: 21pm Prealbumin 31 mg/dL 10-36 05/19/2017 12:45pm 05/20/2017 8:56pm Performed at: - [facility] [id number] Supervisor Fabrication: Rafa Zamora MD, Phone: [phone] C-Reactive Protein 12.8 mg/L H 0.0-4.9 05/19/2017 12:45pm 05/20/2017 8: 56pm Bedside Glucose 318 mg/dL H 70-120 07/21/2017 1:12pm 07/21/2017 1:32pm Meter ID: [id number] Microbiology Results Procedure Source Organism/Result Collection Date/Time Result Date/Time Result Status Wound Culture Toe, Left Big ENTEROBACTER CLOACAE 05/19/2017 12:32pm 2016 8:24am Final KLEBSIELLA PNEUMONIAE 05/19/2017 12:32pm 05/22/2017 8:24am Final STREP AGALACTIAE GROUP B 05/19/2017 12:32pm 05/22/2017 8:24am Final Procedures Procedure Status Date Provider(s) X-ray of chest, two views Active 05/26/17 SABRINA LOPEZ DPM Encounters Encounter Location Arrival/Admit Date Discharge/Depart Date Attending Provider Discharged [facility] 07/21/17 12:53pm 11:59pm SABRINA LOPEZ DPM Discharged [facility] 05/26/17 12:00pm 11:59pm SABRINA LOPEZ DPM Discharged [facility] 05/12/17 11:31am 11:59pm SABRINA LOPEZ DPM Discharged [facility]ring [facility] 03/24/17 1:31pm 04/20/17 11:59pm SABRINA LOPEZ DPM Discharged [facility]ring [facility] 03/16/17 8:50am 03/20/17 11:59pm SABRINA LOPEZM
--- OUTSIDE RECORDS SUMMARY | 2017-07-31 14:38 | XMS REPORT ---
Author Author Admin, [facility] [place] Address [address] [address] Phone Allergies, Adverse Reactions, Alerts Allergy Name Reaction Description Start Date Severity Status Provider TRAMADOL itching and rash Moderate Active Marianne Abad Pariani DO SULFA Critical Active Marianne Abad Pariani DO HYDRALAZINE tachycardic heatbeat Critical Active Marianne Abad Pariani DO Conditions or Problems Problem Name Problem Code Onset Date Status Entry Date Provider Comment Standard Description Annotate Pulmonary nodule, right upper lobe 518.89 Active Marianne Abad Pariani DO Other diseases of lung, not elsewhere classified CT: 7 mm RUL close to hilum, rec CT 6-12 mo. Dizziness and giddiness 780.4 Active Marianne Abad Pariani DO Dizziness and giddiness Hx of CT 412 Active Marianne Abad Pariani DO Old myocardial infarction EKG: ant/inf CT Secondary hyperparathyroidism, renal origin 588.81 Active 03/07 Marianne Abad Pariani DO Secondary hyperparathyroidism (of renal origin ) Nephrology: [facility] Anxiety 300.00 Active Marianne Abad Pariani DO Anxiety state, unspecified Depression, major 296.20 Active Marianne Abad Pariani DO Major depressive disorder, single episode, unspecified degree 12/2016 PHQ9=16 (major, no txment) Foot ulcer, left 707.10 Active Marianne Abad Pariani DO Ulcer of lower limb, unspecified non-healing Podiatry: Dr. Hernandez Vascular Surgery: Dr. Salamanca Insomnia 780.52 Active Marianne Baeza DO Insomnia, unspecified Memory impairment 780.9 Active Mariannekris Baeza DO Other general symptoms 03/07 MOCA: (ptn feeling unwell) Need for home health care V60.4 Active Marianne Baeza DO No other household member able to render care Abnormality of albumin 790.99 Active Marianne Baeza DO Other nonspecific findings on examination of blood Vitamin B12 deficiency 266.9 Active Marianne Baeza DO Unspecified vitamin B deficiency 10/05 Vit B 84=934 s/p sq IM inj Heme: Dr. Camiol Amaya, hx of V12.09 Active Marianne Baeza DO Other personal history of infectious and parasitic disease Disequilibrium 780.4 Active Marianne Baeza DO Dizziness and giddiness cane, rolling walker w/ seat likely 2/2 diabetic neuropathy Background diabetic retinopathy 250.50 Active Marianne Baeza DO Diabetes mellitus with ophthalmic manifestations, type II or unspecified type, not stated as uncontrolled 07/07 Rt [facility] Optho: Dr. Silva Diastolic dysfunction 429.9 Active Marianne Baeza DO Heart disease, unspecified Dry weight 200-205 lbs 10/05 Echo: Nl EF, mod conc LVH Cardiology: Dr. Elizabeth Anemia due to CKD 285.21 Active Marianne Abad Baeza DO Anemia in chronic kidney disease microcytic anemia Heme: Dr. Lesli Page IV iron infusions q wk CKD stage 4 (gfr 15-29) 585.4 Active Marianne Melgoza Chelseydenilson DO Chronic kidney disease, Stage IV (severe) Nephrology: Dr. Holliday Obesity Active Marianne Baeza DO Obesity , unspecified Screening for osteoporosis V82.81 Active Marianne Baeza DO Screening for osteoporosis Vitamin D deficiency 268.9 Active Marianne Baeza DO Unspecified vitamin D deficiency 03/07 VITAMIN D,25-OH,TOTAL,IA [ L] 8 ng/mL tx Ergo 50,000 U X 12 wks Coronary artery disease 414.00 Active Marianne Baeza DO Coronary atherosclerosis of unspecified type of vessel, circle or graft s/p 4 v Bypass 2007 2 stents 2007, 2008 Cardiology: Dr. 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 Brennan Fatigue 780.79 Active Marianne Melgoza Chelseydenilson DO Other malaise and fatigue Health care maintenance V70.0 Active Marianne Baeza DO Routine general medical examination at a health care facility Hx of endometrial cancer V10.42 Active Marianne Baeza DO Personal history of malignant neoplasm of other parts of uterus s/p SHYANNE w/BSO and chemot Onc: Dr. Katia Mclean Hyperlipidemia 272.4 Active Marianne Bernardoish Monica DO Other and unspecified hyperlipidemia Hypertension 401.9 Active Marianne Bernardoish Monica DO Unspecified essential hypertension Leg cramps 729.82 Active Marianne Baeza DO Cramp of limb Peripheral vascular disease 443.89 Active Marianne Bernardoish Chelseydenilson DO Other peripheral vascular disease s/p LE stent 12/2015 s/p L great toe amputation 04/05 CV surgery: Dr. Bran Vascular surgery: Dr. Salamanca Restless leg syndrome 333.94 Active Marianne Abad Pariani DO Restless legs syndrome (RLS) Shoulder pain 719.41 Inactive Marianne Abad Pariani DO Pain in joint involving shoulder region Shoulder pain ICD-719.41 Inactive Marianne Abad Pariani DO Abnormal urine finding ICD-791.9 Inactive Marianne Abad Pariani DO Chest pain 786.50 Inactive Marianne Abad Pariani DO Unspecified chest pain Chest pain ICD-786.50 Inactive Marianne Abad Pariani DO Lower back pain 724.2 Inactive Marianne Abad Pariani DO Lumbago Lower back pain ICD-724.2 Inactive Marianne Abad Pariani DO Foot infection, left 686.9 Inactive Marianne Abad Pariani DO Unspecified local infection of skin and subcutaneous tissue Podiatry: Dr. Hernandez Vascular Surgery: Dr. Salamanca Unspecified open wound of left great toe without damage to nail, sequela ICD- 906.1 Inactive Marianne Abad Pariani DO Fracture ICD-829.0 Inactive Marianne Abad Pariani DO Nausea and vomiting ICD-787.01 Inactive Marianne Abad Pariani DO Shingles 053.9 Inactive Marianne Abad Pariani DO Herpes zoster without mention of complication CHF 428.0 Inactive Marianne Abad Pariani DO Congestive heart failure, unspecified Dry weight 200-205 lbs 10/05 Echo: Nl EF, mod conc LVH Cardiology: Dr. Elizabeth SOB ICD-786.05 Inactive Marianne Abad Pariani DO 2016 Anemia 285.9 Inactive Marianne Abad Pariani DO Anemia, unspecified Breast Cancer, Screening, Unspecified V76.10 Inactive Marianne Abad Pariani DO Breast screening, unspecified Breast Cancer, Screening, Unspecified ICD-V76.10 Inactive Marianne Abad Pariani DO Elevated creatinine 790.4 Inactive Marianne Abad Pariani DO Nonspecific elevation of levels of transaminase or lactic acid dehydrogenase [LDH] Cataracts 366.9 Inactive Marianne Abad Pariani DO Unspecified cataract s/p cataract removal Preventive health care V70.0 Inactive Marianne Abad Pariani DO Routine general medical examination at a health care facility Abnormal urine finding 791.9 Resolved Marianne Abad Pariani DO Other nonspecific findings on examination of urine Unspecified open wound of left great toe without damage to nail, sequela 906.1 Resolved Marianne Abad Pariani DO Late effect of open wound of extremities without mention of tendon injury Podiatry: Dr. Negar Hernandez Vascular: Dr. Salamanca Fracture 829.0 Resolved Marianne Abad Pariani DO Fracture of unspecified bone, closed foot fracture followed by non-healing infxn to the fx Nausea and vomiting 787.01 Resolved Marianne Abad Pariani DO Nausea with vomiting SOB 786.05 Resolved Marianne Abad Pariani DO Shortness of breath Leg cramps 729.82 Resolved Marianne Abad Pariani DO Cramp of limb Medication List Medication Instructions Start Date Stop Date Generic Name NDC Status Provider Patient Instruction ERGOCALCIFEROL 00934 UNIT ORAL CAPSULE 1 tab By Mouth Every wk ERGOCALCIFEROL 23386818433 Active Marianne Baeza DO Active TRAMADOL HCL 50 MG ORAL TABLET take 1/2 - 1 tab By Mouth Twice a Day As Needed pain TRAMADOL HCL 19996603721 Active Marianne Baeza DO Active HUMULIN R U-500 KWIKPEN 500 UNIT/ML SUBCUTANEOUS SOLUTION PEN-INJECTOR 35 units Twice a Day SQ INSULIN REGULAR HUMAN 99335326947 Active Marianne Baeza DO Active ESCITALOPRAM OXALATE 5 MG ORAL TABLET take 1 tab By Mouth Every day for depression/anxiety ESCITALOPRAM OXALATE 08302051364 Active Marianne Baeza DO Active LORAZEPAM 0.5 MG ORAL TABLET take 1-2 tabs By Mouth As Needed As Needed anxiety LORAZEPAM 59748603857 Active Naomie Pelaez CPHT Active FISH OIL 1000 MG ORAL CAPSULE 1 tab By Mouth Every day OMEGA- 3 FATTY ACIDS 67002020199 Active Marianne Baeza DO Active CLOPIDOGREL BISULFATE 75 MG ORAL TABLET TK 1 T PO D CLOPIDOGREL BISULFATE 84505166788 Active Marianne Baeza DO Active NIFEDIPINE ER 60 MG ORAL TABLET EXTENDED RELEASE 24 HOUR Take one tab By Mouth Every Day for blood pressure NIFEDIPINE 64789774521 Active Marianne Baeza DO Active BACLOFEN 10 MG ORAL TABLET take 1/2 tab By Mouth Three Times a Day for muscle spasm BACLOFEN 14162021598 Active Marianne Baeza DO Active FUROSEMIDE 20 MG ORAL TABLET take 1 tab By Mouth As Needed LE swelling 08/12 FUROSEMIDE 32534466628 Active Marianne Baeza DO Active TRADJENTA 5 MG ORAL TABLET take 1 tab By Mouth Every day LINAGLIPTIN 99939901770 Active Naomie Pelaez CPHT Active BD PEN NEEDLE SHORT U/F 31G X 8 MM Use to dose insulin INSULIN PEN NEEDLE 32951307538 Active Naomie Pelaez CPHT Active ROLLER WALKER use when ambulating MISC. DEVICES 79785222423 Active Marianne Baeza DO Active PROAIR HFA 108 (90 Base) MCG/ACT INHALATION AEROSOL SOLUTION use Every 4-6 hrs As Needed SOB ALBUTEROL SULFATE 40358156914 Active Marianne Melgoza Pariani DO Active ASPIRIN 325 MG ORAL TABLET take 1 tab By Mouth Every day ASPIRIN 48213768841 Active Marianne Barbosaani DO Active ATORVASTATIN CALCIUM 20 MG ORAL TABLET take 1 tab By Mouth Every at bedtime for cholesterol ATORVASTATIN CALCIUM 50151108161 Active Marianne Barbosaani DO Active BENAZEPRIL HCL 40 MG ORAL TABLET 1 tab By Mouth Every day BENAZEPRIL HCL 24740682750 Active Marianne Baeza DO Active CARVEDILOL 25 MG ORAL TABLET take 2 tab By Mouth bid CARVEDILOL 41390334429 Active Marianne Baeza DO Active FUROSEMIDE 40 MG ORAL TABLET take 1 tab By Mouth Every day FUROSEMIDE 33519705149 Active Kimberli Manzo EGG CANDLER Active GABAPENTIN 300 MG ORAL CAPSULE take 1 tab By Mouth bid GABAPENTIN 60663357902 Active Marianne Baeza DO Active ISOSORBIDE MONONITRATE ER 60 MG ORAL TABLET EXTENDED RELEASE 24 HOUR 1 tab By Mouth Every day ISOSORBIDE MONONITRATE 34509741999 Active Marianne Baeza DO Active METOCLOPRAMIDE HCL 5 MG ORAL TABLET take 1 tab By Mouth Every ac (30 min before meal) and hs METOCLOPRAMIDE HCL 61561755778 Active Naomie Pelaez CYBER ANALYST Active CEPHALEXIN 500 MG ORAL CAPSULE Take one capsule Twice a Day for infection of toe CEPHALEXIN 500 MG ORAL CAPSULE 988712 CEPHALEXIN Inactive VITAMIN D3 400 UNIT ORAL CAPSULE 1 tab By Mouth Every day VITAMIN D3 400 UNIT ORAL CAPSULE CHOLECALCIFEROL Inactive VITAMIN D3 3000 UNIT ORAL TABLET 1 tab By Mouth Every day VITAMIN D3 3000 UNIT ORAL TABLET CHOLECALCIFEROL Inactive FAMCICLOVIR 500 MG ORAL TABLET take 1 tablet By Mouth Every 8 hrs FAMCICLOVIR 500 MG ORAL TABLET 846567 FAMCICLOVIR Inactive LIDOCAINE 5 % EXTERNAL OINTMENT apply to affected area Twice a Day-tid 07/27 LIDOCAINE 5 % EXTERNAL OINTMENT 1192063 LIDOCAINE Inactive TYLENOL WITH CODEINE #3 TABLET Take one tab every 6 hours as needed for pain TYLENOL WITH CODEINE #3 TABLET ACETAMINOPHEN- CODEINE TABS Inactive ZOFRAN 4 MG ORAL TABLET 1-2 tablets by mouth every 8 hours as needed for nausea ZOFRAN 4 MG ORAL TABLET 387649 ONDANSETRON HCL Inactive HUMALOG KWIKPEN 100 UNIT/ML SUBCUTANEOUS SOLUTION PEN-INJECTOR sc per SS with meals HUMALOG KWIKPEN 100 UNIT/ML SUBCUTANEOUS SOLUTION PEN-INJECTOR INSULIN LISPRO Inactive ERGOCALCIFEROL 47771 UNIT ORAL CAPSULE take 1 tab Every wk X 12 wks ERGOCALCIFEROL 48738 UNIT ORAL CAPSULE 5255216 ERGOCALCIFEROL Inactive HYDRALAZINE HCL 10 MG ORAL TABLET take 1 tab By Mouth tid HYDRALAZINE HCL 10 MG ORAL TABLET 884165 HYDRALAZINE HCL Inactive ZETIA 10 MG ORAL TABLET take 1 tab By Mouth Every day ZETIA 10 MG ORAL TABLET 721630 EZETIMIBE Inactive ALEVE TABLET 1-2 tabs As Needed pain ALEVE TABLET NAPROXEN SODIUM TABS Inactive AMLODIPINE BESYLATE 10 MG ORAL TABLET take 1 tab By Mouth Every day AMLODIPINE BESYLATE 10 MG ORAL TABLET 870382 AMLODIPINE BESYLATE Inactive CYCLOBENZAPRINE HCL 10 MG ORAL TABLET take 1 tab By Mouth As Needed CYCLOBENZAPRINE HCL 10 MG ORAL TABLET 674227 CYCLOBENZAPRINE HCL Inactive LEVEMIR FLEXTOUCH 100 UNIT/ML SUBCUTANEOUS SOLUTION PEN-INJECTOR take 50 U By Mouth Twice a Day, titrate up to a fsg goal ~ 140 LEVEMIR FLEXTOUCH 100 UNIT/ML SUBCUTANEOUS SOLUTION PEN-INJECTOR INSULIN DETEMIR Inactive METFORMIN HCL 1000 MG ORAL TABLET 1 tab By Mouth bid METFORMIN HCL 1000 MG ORAL TABLET 275729 METFORMIN HCL Inactive CEPHALEXIN 500 MG ORAL CAPSULE Take one capsule Twice a Day for infection of toe CEPHALEXIN 79194309526 No Longer Active Marianne Abad Baeza DO Active VITAMIN D3 400 UNIT ORAL CAPSULE 1 tab By Mouth Every day CHOLECALCIFEROL 76790682182 No Longer Active Marianne Abad Pariani DO Active VITAMIN D3 3000 UNIT ORAL TABLET 1 tab By Mouth Every day CHOLECALCIFEROL 77280037923 No Longer Active Marianne Abad Pariani DO Active FAMCICLOVIR 500 MG ORAL TABLET take 1 tablet By Mouth Every 8 hrs FAMCICLOVIR 09097713188 No Longer Active Marianne Abad Chelseyani DO Active LIDOCAINE 5 % EXTERNAL OINTMENT apply to affected area Twice a Day-tid 07/27 LIDOCAINE 77861169229 No Longer Active Marianne Barbosadenilson DO Active PROMETHAZINE HCL 12.5 MG ORAL TABLET take 1-2 tablets Every 4-6 hrs As Needed nauea PROMETHAZINE HCL 05299905158 No Longer Active Mariannekris BernardoAbad Chelseydenilson DO Active TYLENOL WITH CODEINE #3 TABLET Take one tab every 6 hours as needed for pain ACETAMINOPHEN-CODEINE TABS 40941748971 No Longer Active Marianne Barbosadenilson DO Active ZOFRAN 4 MG ORAL TABLET 1-2 tablets by mouth every 8 hours as needed for nausea ONDANSETRON HCL 28610365637 No Longer Active Marianne Abad Barbosaani DO Active HUMALOG 100 UNIT/ML SUBCUTANEOUS SOLUTION sc per SS with meals and Every at bedtime INSULIN LISPRO 28850322073 No Longer Active Marianne Abad Pariani DO Active HUMALOG KWIKPEN 100 UNIT/ML SUBCUTANEOUS SOLUTION PEN-INJECTOR sc per SS with meals INSULIN LISPRO 00043327671 No Longer Active Marianne Abad Pariani DO Active NOVOLOG FLEXPEN 100 UNIT/ML SUBCUTANEOUS SOLUTION PEN-INJECTOR sc per SS with meals INSULIN ASPART 86739121684 No Longer Active Naomie Pelaez CYBER ANALYST Active ERGOCALCIFEROL 87345 UNIT ORAL CAPSULE take 1 tab Every wk X 12 wks ERGOCALCIFEROL 68857577923 No Longer Active Marianne Abad Baeza DO Active HYDRALAZINE HCL 10 MG ORAL TABLET take 1 tab By Mouth tid HYDRALAZINE HCL 68774066735 No Longer Active Marianne Abad Barbosaani DO Active ZETIA 10 MG ORAL TABLET take 1 tab By Mouth Every day EZETIMIBE 91387433038 No Longer Active Marianne Abad Barbosadenilson DO Active ALEVE TABLET 1-2 tabs As Needed pain NAPROXEN SODIUM TABS 38356963693 No Longer Active Marianne Abadberto Baeza DO Active AMLODIPINE BESYLATE 10 MG ORAL TABLET take 1 tab By Mouth Every day AMLODIPINE BESYLATE 40406679179 No Longer Active Mariannekris BernardoAbadberto Baeza DO Active CYCLOBENZAPRINE HCL 10 MG ORAL TABLET take 1 tab By Mouth As Needed CYCLOBENZAPRINE HCL 08384243184 No Longer Active Marianne Abad Baeza DO Active LEVEMIR FLEXTOUCH 100 UNIT/ML SUBCUTANEOUS SOLUTION PEN-INJECTOR take 50 U By Mouth Twice a Day, titrate up to a fsg goal ~ 140 INSULIN DETEMIR 65451358227 No Longer Active Marianne Abad Baeza DO Active METFORMIN HCL 1000 MG ORAL TABLET 1 tab By Mouth bid METFORMIN HCL 68435254564 No Longer Active Marianne Abad Baeza DO Active SIMVASTATIN 40 MG ORAL TABLET take 1 tab By Mouth Every at bedtime SIMVASTATIN 03506554672 No Longer Active Naomie Pelaez CYBER ANALYST Active Immunizations Vaccine Administration Date Value Standard Description varicella shingles vaccine given elsewhere varicella virus vaccine Tetanus toxoid, reduced diphtheria toxoid and acellular Pertussis vaccine, absorbed (TdaP) given given tetanus toxoid, reduced diphtheria toxoid, and acellular pertussis vaccine, adsorbed influenza immunization (Flu Vax) has been administered given elsewhere influenza virus vaccine, unspecified formulation influenza immunization (Flu Vax) has been administered given influenza virus vaccine, unspecified formulation Vital Signs Date Name Value Unit Range Description blood pressure, diastolic 65 mm[Hg] BP barry blood pressure, systolic 121 mm[Hg] BP sys height E&M 69 [in_us] Bdy height pulse rate E&M 65 /min Heart rate respiratory rate E&M 18 /min Resp rate temperature E&M 97.7 [degF] Body temperature weight E&M 201.80 [lb_av] Weight Measured blood pressure, diastolic, second observation 79 mm[Hg] BP barry blood pressure, diastolic, third observation 80 mm[Hg] BP barry blood pressure, diastolic, fourth observation 78 mm[Hg] BP barry blood pressure, diastolic, fifth observation 72 mm[Hg] BP barry blood pressure, diastolic 72 mm[Hg] BP barry blood pressure, systolic, second observation 161 mm[Hg] BP sys blood pressure, systolic, third observation 151 mm[Hg] BP sys blood pressure, systolic, fourth observation 147 mm[Hg] BP sys blood pressure, systolic, fifth observation 137 mm[Hg] BP sys blood pressure, systolic 137 mm[Hg] BP sys height E&M 69 [in_us] Bdy height pulse rate E&M 76 /min Heart rate pulse rate #2 68 Heart rate pulse rate #3 70 Heart rate pulse rate #4 68 /min Heart rate pulse rate #5 65 /min Heart rate respiratory rate E&M 16 /min Resp rate temperature E&M 98.2 [degF] Body temperature weight E&M 208.60 [lb_av] Weight Measured blood pressure, diastolic 79 mm[Hg] BP barry blood pressure, systolic 154 mm[Hg] BP sys height E&M 69 [in_us] Bdy height pulse rate E&M 71 /min Heart rate respiratory rate E&M 18 /min Resp rate temperature E&M 98.0 [degF] Body temperature weight E&M 209.30 [lb_av] Weight Measured blood pressure, diastolic 71 mm[Hg] BP barry blood pressure, systolic 136 mm[Hg] BP sys height E&M 69 [in_us] Bdy height pulse rate E&M 73 /min Heart rate respiratory rate E&M 18 /min Resp rate temperature E&M 97.9 [degF] Body temperature weight E&M 212 [lb_av] Weight Measured blood pressure, diastolic 76 mm[Hg] BP barry blood pressure, systolic 147 mm[Hg] BP sys height E&M 69 [in_us] Bdy height pulse rate E&M 73 /min Heart rate respiratory rate E&M 19 /min Resp rate temperature E&M 97.8 [degF] Body temperature weight E&M 221 [lb_av] Weight Measured blood pressure, diastolic, second observation 74 mm[Hg] BP barry blood pressure, diastolic 74 mm[Hg] BP barry blood pressure, systolic, second observation 158 mm[Hg] BP sys blood pressure, systolic 158 mm[Hg] BP sys height E&M 69 [in_us] Bdy height pulse rate E&M 77 /min Heart rate pulse rate #2 78 Heart rate respiratory rate E&M 19 /min Resp rate temperature E&M 98.4 [degF] Body temperature weight E&M 208.20 [lb_av] Weight Measured blood pressure, diastolic 78 mm[Hg] BP barry blood pressure, systolic 121 mm[Hg] BP sys pulse rate E&M 82 /min Heart rate blood pressure, diastolic 79 mm[Hg] BP barry blood pressure, systolic 165 mm[Hg] BP sys height E&M 69 [in_us] Bdy height pulse rate E&M 70 /min Heart rate respiratory rate E&M 19 /min Resp rate temperature E&M 98.6 [degF] Body temperature weight E&M 214.60 [lb_av] Weight Measured blood pressure, diastolic 67 mm[Hg] BP barry blood pressure, systolic 116 mm[Hg] BP sys height E&M 69 [in_us] Bdy height pulse rate E&M 70 /min Heart rate respiratory rate E&M 18 /min Resp rate temperature E&M 98.2 [degF] Body temperature weight E&M 205.20 [lb_av] Weight Measured blood pressure, diastolic 64 mm[Hg] BP barry blood pressure, systolic 106 mm[Hg] BP sys height E&M 69 [in_us] Bdy height pulse rate E&M 66 /min Heart rate respiratory rate E&M 18 /min Resp rate temperature E&M 98.2 [degF] Body temperature weight E&M 202.40 [lb_av] Weight Measured blood pressure, diastolic, second observation 75 mm[Hg] BP barry blood pressure, diastolic, third observation 79 mm[Hg] BP barry blood pressure, diastolic, fourth observation 74 mm[Hg] BP barry blood pressure, diastolic 76 mm[Hg] BP barry blood pressure, systolic, second observation 144 mm[Hg] BP sys blood pressure, systolic, third observation 139 mm[Hg] BP sys blood pressure, systolic, fourth observation 148 mm[Hg] BP sys blood pressure, systolic 135 mm[Hg] BP sys height E&M 69 [in_us] Bdy height pulse rate E&M 66 /min Heart rate pulse rate #2 66 Heart rate pulse rate #3 67 Heart rate pulse rate #4 64 /min Heart rate respiratory rate E&M 19 /min Resp rate temperature E&M 98.6 [degF] Body temperature weight E&M 200.80 [lb_av] Weight Measured Diagnostic Results Date Name Value Unit Range Description Lab Report: URINALYSIS REFLEX - Urinalysis pH, urine, semiquantitative 5.5 5.0-8.0 bilirubin, urine NEGATIVE NEGATIVE Lab Report: COMPREHENSIVE METABOLIC PANEL, CBC (INCLUDES DIFF/PLT), INNA ... - Chemistry urea nitrogen, blood 43 mg/dL 7-25 Lab Report: COMPREHENSIVE METABOLIC PANEL, CBC (INCLUDES DIFF/PLT), INNA ... - Hematology mean platelet volume 10.0 fL 7.5-12.5 Lab Report: IRON, TIBC AND FERRITIN PANEL, FERRITIN, BASIC METABOLIC CLAIRE ... - Chemistry ferritin, serum 72 ng/mL 20-288 Lab Report: COMPREHENSIVE METABOLIC PANEL, CBC (INCLUDES DIFF/PLT), INNA ... - Chemistry creatinine, serum 2.37 mg/dL 0.50-0.99 chloride, serum 92 mmol/L 98-110 Lab Report: COMPREHENSIVE METABOLIC PANEL, CBC (INCLUDES DIFF/PLT), INNA ... - Hematology mean corpuscular volume, RBC 91.4 fL 80.0-100.0 Lab Report: LIPID PANEL, HDL CHOLESTEROL, TRIGLYCERIDES, LDL-CHOLESTEROL ... - Chemistry triglyceride, serum, fasting 390 mg/dL <150 Lab Report: COMPREHENSIVE METABOLIC PANEL, CBC (INCLUDES DIFF/PLT), INNA ... - Chemistry lymphocytes, absolute 1920 CELLS/UL 10*3/uL 850-3900 Lab Report: COMPREHENSIVE METABOLIC PANEL, CBC (INCLUDES DIFF/PLT), INNA ... - Hematology erythrocyte (RBC) count 3.60 MILLION/UL 10*6/mm3 3.80-5.10 Lab Report: COMPREHENSIVE METABOLIC PANEL, CBC (INCLUDES DIFF/PLT), INNA ... - Chemistry Estimated Glomerular Filtration Rate (calc) 20 mL/min/1.73m2 > OR=60 Lab Report: IRON, TIBC AND FERRITIN PANEL, FERRITIN, BASIC METABOLIC CLAIRE ... - Lab reticulocyte count, blood, absolute [id number] CELLS/UL 10*6/mm3 93350-02006 Lab Report: URINALYSIS REFLEX - Urinalysis appearance, urine CLEAR CLEAR Lab Report: COMPREHENSIVE METABOLIC PANEL, CBC (INCLUDES DIFF/PLT), INNA ... - Chemistry globulins, serum, total 2.7 G/DL (CALC) g/dL 1.9-3.7 Lab Report: COMPREHENSIVE METABOLIC PANEL, CBC (INCLUDES DIFF/PLT), INNA ... - Hematology platelet count 228 THOUSAND/UL 10*3/mm3 365-001 9998/09/20 red blood cell distribution width 14.4 % 11.0-15.0 Lab Report: COMPREHENSIVE METABOLIC PANEL, CBC (INCLUDES DIFF/PLT), INNA ... - Chemistry protein, total, serum 6.1 g/dL 6.1-8.1 Lab Report: LIPID PANEL, HDL CHOLESTEROL, TRIGLYCERIDES, LDL-CHOLESTEROL ... - Chemistry cholesterol, non-HDL, total 150 MG/DL (CALC) mg/dL HDL cholesterol, serum 35 mg/dL > OR=46 Lab Report: URINALYSIS REFLEX - Urinalysis glucose, urine, semiquantitative 3+ NEGATIVE Lab Report: COMPREHENSIVE METABOLIC PANEL, CBC (INCLUDES DIFF/PLT), INNA ... - Chemistry albumin/globulin ratio, serum 1.3 (calc) 1.0-2.5 Lab Report: COMPREHENSIVE METABOLIC PANEL, CBC (INCLUDES DIFF/PLT), INNA ... - Hematology basophil count, absolute 22 cells/uL 0-200 Lab Report: IRON, TIBC AND FERRITIN PANEL, FERRITIN, BASIC METABOLIC CLAIRE ... - Chemistry iron saturation percent, serum 14 % (CALC) % 11-50 Lab Report: COMPREHENSIVE METABOLIC PANEL, CBC (INCLUDES DIFF/PLT), INNA ... - Chemistry alanine aminotransferase (SGPT), serum 6 U/L 6-29 Lab Report: LIPID PANEL, HDL CHOLESTEROL, TRIGLYCERIDES, LDL-CHOLESTEROL ... - Chemistry LDL cholesterol, serum 72 MG/DL (CALC) mg/dL <130 Lab Report: URINALYSIS REFLEX - Urinalysis nitrite, urine, semiquantitative NEGATIVE NEGATIVE Lab Report: COMPREHENSIVE METABOLIC PANEL, CBC (INCLUDES DIFF/PLT), INNA ... - Hematology monocytes as percent of blood leukocytes 4.7 % eosinophils as percent of blood leukocytes 1.1 % Lab Report: LIPID PANEL, HDL CHOLESTEROL, TRIGLYCERIDES, LDL-CHOLESTEROL ... - Chemistry cholesterol, serum 185 mg/dL 125-200 Lab Report: URINALYSIS REFLEX - Urinalysis hyaline casts, urine NONE SEEN /[LPF] NONE SEEN Lab Report: CREATINE KINASE ISOENZYME PANEL, CREATINE KINASE ISOENZYMES ... - Chemistry creatine kinase MB isoenzyme (band) as percent of total creatine kinase 0 % OF TOTAL % <5 Lab Report: COMPREHENSIVE METABOLIC PANEL, CBC (INCLUDES DIFF/PLT), INNA ... - Hematology mean corpuscular hemoglobin concentration, RBC 31.6 G/DL % 32.0- 36.0 Lab Report: URINALYSIS REFLEX - Urinalysis leukocyte esterase, urine, by dipstick NEGATIVE NEGATIVE Lab Report: COMPREHENSIVE METABOLIC PANEL, CBC (INCLUDES DIFF/PLT), INNA ... - Hematology hemoglobin, blood 10.4 g/dL 11.7-15.5 leukocyte count, blood 7.3 THOUSAND/UL 10*3/mm3 3.8-10.8 Lab Report: COMPREHENSIVE METABOLIC PANEL, CBC (INCLUDES DIFF/PLT), INNA ... - Chemistry B-12, serum 476 pg/mL 200-1100 Absolute Neutrophil count 4935 {Cells}/uL 6040-5544 Lab Report: URINALYSIS REFLEX - Urinalysis protein, urine, semiquantitative (dipstick) 3+ NEGATIVE Lab Report: COMPREHENSIVE METABOLIC PANEL, CBC (INCLUDES DIFF/PLT), INNA ... - Hematology hematocrit, blood 32.9 % 35.0-45.0 Lab Report: IRON, TIBC AND FERRITIN PANEL, FERRITIN, BASIC METABOLIC CLAIRE ... - Hematology reticulocytes as percent of blood erythrocytes 2.6 % Lab Report: URINALYSIS REFLEX - Urinalysis bacteria, urine microscopy NONE SEEN NONE SEEN Lab Report: URINALYSIS REFLEX - Microbiology squamous epithelial cells 0-5 /HPF /[LPF] < OR=5 Lab Report: COMPREHENSIVE METABOLIC PANEL, CBC (INCLUDES DIFF/PLT), INNA ... - Chemistry vitamin D 25-hydroxy, serum 8 ng/mL 30-100 albumin, serum 3.4 g/dL 3.6-5.1 Internal Correspondence: Pre-Visit Planning - Other List of providers caring for patient Lili Mendoza and Lizz Son Office Visit: Adult Followup RM#[id number] - Urinalysis urobilinogen, urine, semiquantitative (dipstick) 0.2 Lab Report: COMPREHENSIVE METABOLIC PANEL, CBC (INCLUDES DIFF/PLT), INNA ... - Chemistry calcium, serum 8.4 mg/dL 8.6-10.4 Lab Report: COMPREHENSIVE METABOLIC PANEL, CBC (INCLUDES DIFF/PLT), INNA ... - Hematology basophils as percent of blood leukocytes 0.3 % Internal Correspondence: Pre-Visit Planning - CC care steam engineer #1, name Lili Aragon Lab Report: COMPREHENSIVE METABOLIC PANEL, CBC (INCLUDES DIFF/PLT), INNA ... - Chemistry urea nitrogen/creatinine ratio, serum 18 (calc) 6-22 Lab Report: IRON, TIBC AND FERRITIN PANEL, FERRITIN, BASIC METABOLIC CLAIRE ... - Chemistry iron, serum 40 ug/dL 45-160 Lab Report: COMPREHENSIVE METABOLIC PANEL, CBC (INCLUDES DIFF/PLT), INNA ... - Genetics/fertility eGFR if 23 mL/min/1.73m2 > OR=60 Lab Report: IRON, TIBC AND FERRITIN PANEL, FERRITIN, BASIC METABOLIC CLAIRE ... - Chemistry iron binding capacity, total 283 MCG/DL (CALC) ug/dL 250-450 Lab Report: URINALYSIS REFLEX - Urinalysis WBC urine on microscopy 6-10 /HPF {Cells}/[HPF] < OR=5 Lab Report: COMPREHENSIVE METABOLIC PANEL, CBC (INCLUDES DIFF/PLT), INNA ... - Hematology lymphocytes as percent of blood leukocytes 26.3 % Lab Report: URINALYSIS REFLEX - Chemistry RBC, Urine 0-2 /HPF /[HPF] < OR=2 Lab Report: COMPREHENSIVE METABOLIC PANEL, CBC (INCLUDES DIFF/PLT), INNA ... - Chemistry carbon dioxide, venous blood 21 mmol/L - Lab Report: IRON, TIBC AND FERRITIN PANEL, FERRITIN, BASIC METABOLIC CLAIRE ... - Serology rapid plasma reagin antibody, serum NON-REACTIVE NON-REACTIVE Lab Report: COMPREHENSIVE METABOLIC PANEL, CBC (INCLUDES DIFF/PLT), INNA ... - Chemistry sodium, serum 126 mmol/L 223-108 1471/09/20 hemoglobin A1C, blood, as % of total hemoglobin 11.6 % OF TOTAL HGB % <5.7 Office Visit: Acute Visit Rm 3 rash - Chemistry blood glucose, fasting 300 mg/dL Lab Report: COMPREHENSIVE METABOLIC PANEL, CBC (INCLUDES DIFF/PLT), INNA ... - Chemistry alkaline phosphatase, serum 92 U/L 33-130 Lab Report: URINALYSIS REFLEX - Urinalysis ketones, urine, by test strip NEGATIVE NEGATIVE Lab Report: COMPREHENSIVE METABOLIC PANEL, CBC (INCLUDES DIFF/PLT), INNA ... - Hematology Absolute Monocyte count 343 {Cells}/uL 200-950 Lab Report: IRON, TIBC AND FERRITIN PANEL, FERRITIN, BASIC METABOLIC CLAIRE ... - Chemistry TSH (thyroid stimulating hormone) with reflex FT4 2.64 m[iU]/L 0.40-4.50 Lab Report: URINALYSIS REFLEX - Urinalysis specific gravity, urine 1.028 1.001-1.035 Lab Report: IRON, TIBC AND FERRITIN PANEL, FERRITIN, BASIC METABOLIC CLAIRE ... - Chemistry B-type natriuretic peptide 116 pg/mL <100 Lab Report: COMPREHENSIVE METABOLIC PANEL, CBC (INCLUDES DIFF/PLT), INNA ... - Hematology mean corpuscular hemoglobin, RBC 28.9 pg 27.0-33.0 Lab Report: COMPREHENSIVE METABOLIC PANEL, CBC (INCLUDES DIFF/PLT), INNA ... - Chemistry bilirubin, serum, total 0.4 mg/dL 0.2-1.2 Lab Report: CREATINE KINASE ISOENZYME PANEL, CREATINE KINASE ISOENZYMES ... - Chemistry creatine kinase, serum 53 U/L 29-143 creatine kinase MM isoenzyme (band) as percent of total creatine kinase 100 % OF TOTAL % 95-100 Lab Report: COMPREHENSIVE METABOLIC PANEL, CBC (INCLUDES DIFF/PLT), INNA ... - Hematology neutrophils as percent of blood leukocytes 67.6 % Office Visit: Adult Followup RM#3-pariani - Urinalysis blood in urine (hemoglobin) by dipstick 1+ Lab Report: CREATINE KINASE ISOENZYME PANEL, CREATINE KINASE ISOENZYMES ... - Chemistry creatine kinase BB isoenzyme (band), as percent of total serum creatine kinase NONE DETECTED % of total % NONE DETECTED Lab Report: COMPREHENSIVE METABOLIC PANEL, CBC (INCLUDES DIFF/PLT), INNA ... - Chemistry blood glucose, random 729 mg/dL 65-99 potassium, serum 4.7 mmol/L 3.5-5.3 Lab Report: URINALYSIS REFLEX - Chemistry occult blood, stool (E&M) 1+ NEGATIVE Lab Report: LIPID PANEL, HDL CHOLESTEROL, TRIGLYCERIDES, LDL-CHOLESTEROL ... - Chemistry cholesterol/HDL ratio, serum, percent 5.3 (calc) < OR=5.0 Lab Report: COMPREHENSIVE METABOLIC PANEL, CBC (INCLUDES DIFF/PLT), INNA ... - Chemistry aspartate aminotransferase (SGOT), serum 8 U/L 10-35 Lab Report: COMPREHENSIVE METABOLIC PANEL, CBC (INCLUDES DIFF/PLT), INNA ... - Hematology Absolute Eosinophil count 80 {Cells}/uL 15-500 Lab Report: URINALYSIS REFLEX - Urinalysis urine color YELLOW YELLOW Encounters Date Encounter Provider Code Facility 00:32:20 CDT Est Patient Comprehensive-[id number] Marianne Abad Pariani DO [facility]-[address] [place] [address] 21:21:28 CDT Ofc Vst, Est Level V Marianne Abad Pariani DO [facility] [address] [place] [address] 16:00:39 CDT Est Patient Detailed - 10045 Marianne Abad Pariani DO [facility] [place] [address] 00:09:50 CDT Ofc Vst, Est Level V Marianne Abad Pariani DO [facility] [id number] [place] [address] 23:16:00 CDT Est Patient Detailed - 25640 Marianne Abad Pariani DO [facility] [place] [address] 20:07:40 CDT Ofc Vst, Est Level V Marianne Abad Pariani DO [facility] [address] [place] [address] 14:14:04 CDT Est Patient Detailed - [id number] Marianne Abad Pariani DO [facility] [place] [address] 23:17:07 PERSONALIZED LIVING MANAGER Ofc Vst, Est Level V Marianne Abad Pariani DO [facility] [address] [facility] 23:49:16 PERSONALIZED LIVING MANAGER Ofc Vst, Est Level IV Marianne Abad Pariani DO [facility] [id number] [place] [address] 23:33:28 PERSONALIZED LIVING MANAGER Ofc Vst, Est Level V Marianne Abad Pariani DO [facility] [address] [facility] 19:36:40 PERSONALIZED LIVING MANAGER Ofc Vst, Est Level IV Marianne Abad Pariani DO [facility] [id number] [place] [address] 22:25:43 PERSONALIZED LIVING MANAGER Ofc Vst, Est Level IV Marianne Abad Pariani DO CPT- 88960 [facility] 21:38:23 PERSONALIZED LIVING MANAGER Ofc Vst, New Level IV Marianne Baeza DO CPT- 42946 [facility] Procedures Code Procedure Name Date Entry Date Standard Description CPT-68776 EKG - Tracing Only 21:21:28 CDT CPT-98589 EKG - Interpretation & Report Only 21:21:27 CDT CPT-98564 Urinalysis - Dip only - In House 16:04:03 CDT CPT-25170 Psychotherapy 30 (16-37*) min - 45994 (with patient and/or family member) 10:58:58 CDT CPT-59407 Diagnostic evaluation (no medical) - 73115 14:08:49 CDT CPT-77010 Glucose Stick 23:49:14 PERSONALIZED LIVING MANAGER CPT-63475 Glucose Stick 23:33:26 PERSONALIZED LIVING MANAGER CPT-29495 Glucose Stick 21:38:23 PERSONALIZED LIVING MANAGER
[2017-07-31 15:51] LABS: BASOPHILS % 0.1 % (0.0-1.0); EOSINOPHILS % 0.3 % (0.0-6.0); HEMATOCRIT 29.8 % (34.2-44.1); HEMOGLOBIN 10.3 g/dL (12.0-16.0); LYMPHOCYTES % 21.3 % (18.0-39.1); MEAN CORPUSCULAR HGB CONC 34.6 g/dL (31-35); MEAN CORPUSCULAR VOLUME 83.9 fL (81-99); MONOCYTES # (AUTO) 0.5 (0.2-0.8); MONOCYTES % 5.2 % (4.4-11.3); NEUTROPHILS % 72.8 % (38.7-80.0); PLATELET COUNT 260 x10e3/uL (140-360); RED BLOOD COUNT 3.55 x10e6/uL (3.6-5.1); RED CELL DISTRIBUTION WIDTH 13.5 % (11.7-14.4)
[2017-07-31 16:01] LABS: INR 1.42; PROTHROMBIN TIME 16.3 seconds (11.9-14.5)
[2017-07-31 16:02] LABS: PARTIAL THROMBOPLASTIN TIME 30.1 seconds (23.8-35.5)
[2017-07-31] MEDS ORDERED: MORPHINE SULFATE 2 MG/ML SYR IV STA (16:06)
[2017-07-31 16:11] LABS: ALBUMIN 3.4 g/dL (3.5-5.0); CALCIUM 8.7 mg/dL (8.4-10.2); CREATININE, SERUM 3.36 mg/dL (0.57-1.11)
[2017-07-31 16:19] LABS: CREATINE KINASE MB 2.5 ng/mL (0.00-5.00)
--- NOTE | 2017-07-31 16:19 | Diagnostic Imaging Report ---
EXAMINATION: PA and lateral views of the chest. COMPARISON: None CLINICAL HISTORY: Chest pain DISCUSSION: Lines/tubes: Right chest port with tip overlying the superior vena cava. Sternotomy wires. Lungs: The lungs are well inflated and clear. No pneumonia or pulmonary edema. Pleura: There is no pleural effusion or pneumothorax. Heart and mediastinum: The cardiomediastinal silhouette is normal. Bones and soft tissues: No acute bony abnormalities. Degenerative changes in the thoracic spine IMPRESSION: No acute cardiopulmonary abnormalities. Signed by: Dr. Jian Lopez M.D. on 07/31/2017 4:15 PM
[2017-07-31 16:38] LABS: AMYLASE 14 U/L (25-125); LIPASE 22 U/L (8-78)
[2017-07-31 17:30] LABS: BILIRUBIN,URINE NEGATIVE (NEGATIVE); COLOR,URINE YELLOW (YELLOW); KETONES,URINE NEGATIVE (NEGATIVE); LEUKOCYTE ESTERASE ,URINE NEGATIVE (NEGATIVE); NITRITE,URINE NEGATIVE (NEGATIVE); PROTEIN,URINE DIPSTICK 3+ (NEGATIVE); URINE UROBILINOGEN 0.2 mg/dL (0.2 - 1)
[2017-07-31 17:31] LABS: CLARITY,URINE SL CLOUDY (CLEAR)
[2017-07-31 17:58] LABS: BACTERIA,URINE MODERATE /HPF; EPITHELIAL CELLS,URINE MODERATE /LPF
--- NOTE | 2017-07-31 18:49 | Diagnostic Imaging Report ---
EXAMINATION: CT of the abdomen and pelvis without contrast. TECHNIQUE: Helical CT images of the abdomen and pelvis were performed from the lung bases to the lesser trochanters. No intravenous contrast was given per renal stone protocol. Coronal and sagittal reformatted images were obtained. COMPARISON: None. CLINICAL HISTORY:Flank pain DISCUSSION: ABSENCE OF INTRAVENOUS CONTRAST DECREASES SENSITIVITY FOR DETECTION OF FOCAL LESIONS AND VASCULAR PATHOLOGY. ABDOMEN/PELVIS: LOWER THORAX: Unremarkable. HEPATOBILIARY:No focal hepatic lesions. No biliary ductal dilation. Cholecystectomy. SPLEEN: No splenomegaly. PANCREAS: No focal masses or ductal dilatation. ADRENALS: No adrenal nodules. KIDNEYS/URETERS: Punctate right renal calcification image 55. PELVIC ORGANS/BLADDER: The bladder is normal. PERITONEUM/RETROPERITONEUM: No free air or fluid. LYMPH NODES: No intra-abdominal,retroperitoneal, pelvic or inguinal lymphadenopathy. VESSELS: Vascular calcifications. GI TRACT: No distention or wall thickening. Appendix is normal. Duodenal diverticulum. BONES AND SOFT TISSUES: No bony destructive lesions. No acute soft tissue abnormalities. Lower pelvic abdominal wall diastases without herniation. IMPRESSION: No acute noncontrast CT finding. Mild colonic diverticulosis without inflammatory change. Signed by: Dr. Jian Lopez M.D. on 07/31/2017 6:45 PM
[2017-07-31] MEDS ORDERED: FUROSEMIDE40 MG PO (20:41)
[2017-07-31] MEDS ORDERED: LISINOPRIL10 MG PO (20:42)
[2017-07-31] MEDS ORDERED: CARVEDILOL12.5 MG PO (20:42)
[2017-07-31] MEDS ORDERED: TRADJENTA5 MG PO (20:43)
[2017-07-31] MEDS ORDERED: LORAZEPAM0.5 MG PO (20:43)
[2017-07-31] MEDS ORDERED: ZOFRAN ODT4 MG PO (20:44)
[2017-07-31] MEDS ORDERED: FENOFIBRATE145 MG PO (20:45)
[2017-07-31] MEDS ORDERED: DEXTROSE 50% SYRINGE 50 ML IV PRN (20:45)
[2017-07-31] MEDS ORDERED: MORPHINE SULFATE 2 MG/ML SYR IV PRN (20:45)
[2017-07-31] MEDS ORDERED: GABAPENTIN300 MG PO (20:46)
[2017-07-31] MEDS ORDERED: PINDOLOL5 MG PO (20:46)
[2017-07-31] MEDS ORDERED: LEXAPRO10 MG PO (20:47)
[2017-07-31] MEDS ORDERED: BACLOFEN10 MG PO (20:47)
[2017-07-31] MEDS ORDERED: PLAVIX75 MG PO (20:48)
[2017-07-31] MEDS ORDERED: METOCLOPRAMIDE10 MG PO (20:49)
[2017-07-31] MEDS ORDERED: CARDENE PO (20:50)
[2017-07-31] MEDS ORDERED: CIPRO500 MG PO (20:51)
[2017-07-31] MEDS ORDERED: ZOCOR40 MG PO (20:51)
[2017-07-31] MEDS ORDERED: LEVAQUIN250 MG PO (20:52)
[2017-07-31] MEDS ORDERED: ATORVASTATIN CA20 MG PO (20:52)
[2017-07-31] MEDS ORDERED: HUMULIN-R100 UNITS/ SC (20:53)
[2017-07-31] MEDS ORDERED: ASPIR 8181 MG PO (20:54)
--- OUTSIDE RECORDS SUMMARY | 2017-07-31 20:56 | XMS REPORT ---
Author Author Admin, [facility] [place] Address [address] [address] Phone Allergies, Adverse Reactions, Alerts Allergy Name [...] Pariani DO Dizziness and giddiness Hx of [place] 412 Active Marianne Abad Pariani DO Old myocardial infarction EKG: ant/inf [place] Secondary hyperparathyroidism, renal origin 588.81 Active 03/07 [...] Unspecified vitamin B deficiency 10/05 Vit B 33=371 s/p sq IM inj Heme: Dr. Camilo Amaya, hx of V12.09 Active Marianne Baeza [...] Coronary atherosclerosis of unspecified type of vessel, pit river or graft s/p 4 v Bypass 2007 [...] Name NDC Status Provider Patient Instruction ERGOCALCIFEROL 82918 UNIT ORAL CAPSULE 1 tab By Mouth Every wk ERGOCALCIFEROL 10021974339 Active Marianne Baeza DO Active TRAMADOL HCL 50 MG ORAL TABLET take 1/2 - 1 tab By Mouth Twice a Day As Needed pain TRAMADOL HCL 18522444949 Active Marianne Baeza DO Active HUMULIN R U-500 KWIKPEN 500 UNIT/ML SUBCUTANEOUS SOLUTION PEN-INJECTOR 35 units Twice a Day SQ INSULIN REGULAR HUMAN 77112995002 Active Marianne Baeza DO Active ESCITALOPRAM OXALATE 5 MG ORAL TABLET take 1 tab By Mouth Every day for depression/anxiety ESCITALOPRAM OXALATE 87318337598 Active Marianne Baeza DO Active LORAZEPAM 0.5 MG ORAL TABLET take 1-2 tabs By Mouth As Needed As Needed anxiety LORAZEPAM 64675929750 Active Naomie Pelaez CPHT Active FISH OIL 1000 MG ORAL CAPSULE 1 tab By Mouth Every day OMEGA- 3 FATTY ACIDS 92546990493 Active Marianne Baeza DO Active CLOPIDOGREL BISULFATE 75 MG ORAL TABLET TK 1 T PO D CLOPIDOGREL BISULFATE 34428413059 Active Marianne Baeza DO Active NIFEDIPINE ER 60 MG ORAL TABLET EXTENDED RELEASE 24 HOUR Take one tab By Mouth Every Day for blood pressure NIFEDIPINE 87212178770 Active Marianne Baeza DO Active BACLOFEN 10 MG ORAL TABLET take 1/2 tab By Mouth Three Times a Day for muscle spasm BACLOFEN 27111077654 Active Marianne Baeza DO Active FUROSEMIDE 20 MG ORAL TABLET take 1 tab By Mouth As Needed LE swelling 08/12 FUROSEMIDE 18873261984 Active Marianne Baeza DO Active TRADJENTA 5 MG ORAL TABLET take 1 tab By Mouth Every day LINAGLIPTIN 06060088425 Active Naomie Pelaez CPHT Active BD PEN NEEDLE SHORT U/F 31G X 8 MM Use to dose insulin INSULIN PEN NEEDLE 12887126243 Active Naomie Pelaez CPHT Active ROLLER WALKER use when ambulating MISC. DEVICES 54991295195 Active Marianne Baeza DO Active PROAIR HFA 108 (90 Base) MCG/ACT INHALATION AEROSOL SOLUTION use Every 4-6 hrs As Needed SOB ALBUTEROL SULFATE 68535790211 Active Marianne Melgoza Pariani DO Active ASPIRIN 325 MG ORAL TABLET take 1 tab By Mouth Every day ASPIRIN 13596185103 Active Marianne Barbosaani DO Active ATORVASTATIN CALCIUM 20 MG ORAL TABLET take 1 tab By Mouth Every at bedtime for cholesterol ATORVASTATIN CALCIUM 78425392474 Active Marianne Barbosaani DO Active BENAZEPRIL HCL 40 MG ORAL TABLET 1 tab By Mouth Every day BENAZEPRIL HCL 98188171689 Active Marianne Baeza DO Active CARVEDILOL 25 MG ORAL TABLET take 2 tab By Mouth bid CARVEDILOL 35260776197 Active Marianne Baeza DO Active FUROSEMIDE 40 MG ORAL TABLET take 1 tab By Mouth Every day FUROSEMIDE 16542481941 Active Kimberli Manzo C4 PLANNER Active GABAPENTIN 300 MG ORAL CAPSULE take 1 tab By Mouth bid GABAPENTIN 76348265470 Active Marianne Baeza DO Active ISOSORBIDE MONONITRATE ER 60 MG ORAL TABLET EXTENDED RELEASE 24 HOUR 1 tab By Mouth Every day ISOSORBIDE MONONITRATE 97821256562 Active Marianne Baeza DO Active METOCLOPRAMIDE HCL 5 MG ORAL TABLET take 1 tab By Mouth Every ac (30 min before meal) and hs METOCLOPRAMIDE HCL 84375164722 Active Naomie Pelaez COPY COORDINATOR Active CEPHALEXIN 500 MG ORAL CAPSULE Take one capsule Twice a Day for infection of toe CEPHALEXIN 500 MG ORAL CAPSULE 755606 CEPHALEXIN Inactive VITAMIN D3 400 UNIT ORAL CAPSULE 1 tab By Mouth Every day VITAMIN D3 400 UNIT ORAL CAPSULE CHOLECALCIFEROL Inactive VITAMIN D3 3000 UNIT ORAL TABLET 1 tab By Mouth Every day VITAMIN D3 3000 UNIT ORAL TABLET CHOLECALCIFEROL Inactive FAMCICLOVIR 500 MG ORAL TABLET take 1 tablet By Mouth Every 8 hrs FAMCICLOVIR 500 MG ORAL TABLET 795539 FAMCICLOVIR Inactive LIDOCAINE 5 % EXTERNAL OINTMENT apply to affected area Twice a Day-tid 07/27 LIDOCAINE 5 % EXTERNAL OINTMENT 3026605 LIDOCAINE Inactive TYLENOL WITH CODEINE #3 TABLET Take one tab every 6 hours as needed for pain TYLENOL WITH CODEINE #3 TABLET ACETAMINOPHEN- CODEINE TABS Inactive ZOFRAN 4 MG ORAL TABLET 1-2 tablets by mouth every 8 hours as needed for nausea ZOFRAN 4 MG ORAL TABLET 665197 ONDANSETRON HCL Inactive HUMALOG KWIKPEN 100 UNIT/ML SUBCUTANEOUS SOLUTION PEN-INJECTOR sc per SS with meals HUMALOG KWIKPEN 100 UNIT/ML SUBCUTANEOUS SOLUTION PEN-INJECTOR INSULIN LISPRO Inactive ERGOCALCIFEROL 31165 UNIT ORAL CAPSULE take 1 tab Every wk X 12 wks ERGOCALCIFEROL 15435 UNIT ORAL CAPSULE 8219571 ERGOCALCIFEROL Inactive HYDRALAZINE HCL 10 MG ORAL TABLET take 1 tab By Mouth tid HYDRALAZINE HCL 10 MG ORAL TABLET 850709 HYDRALAZINE HCL Inactive ZETIA 10 MG ORAL TABLET take 1 tab By Mouth Every day ZETIA 10 MG ORAL TABLET 950446 EZETIMIBE Inactive ALEVE TABLET 1-2 tabs As Needed pain ALEVE TABLET NAPROXEN SODIUM TABS Inactive AMLODIPINE BESYLATE 10 MG ORAL TABLET take 1 tab By Mouth Every day AMLODIPINE BESYLATE 10 MG ORAL TABLET 223438 AMLODIPINE BESYLATE Inactive CYCLOBENZAPRINE HCL 10 MG ORAL TABLET take 1 tab By Mouth As Needed CYCLOBENZAPRINE HCL 10 MG ORAL TABLET 339958 CYCLOBENZAPRINE HCL Inactive LEVEMIR FLEXTOUCH 100 UNIT/ML SUBCUTANEOUS SOLUTION PEN-INJECTOR take 50 U By Mouth Twice a Day, titrate up to a fsg goal ~ 140 LEVEMIR FLEXTOUCH 100 UNIT/ML SUBCUTANEOUS SOLUTION PEN-INJECTOR INSULIN DETEMIR Inactive METFORMIN HCL 1000 MG ORAL TABLET 1 tab By Mouth bid METFORMIN HCL 1000 MG ORAL TABLET 579426 METFORMIN HCL Inactive CEPHALEXIN 500 MG ORAL CAPSULE Take one capsule Twice a Day for infection of toe CEPHALEXIN 59027367814 No Longer Active Marianne Abad Baeza DO Active VITAMIN D3 400 UNIT ORAL CAPSULE 1 tab By Mouth Every day CHOLECALCIFEROL 58726915348 No Longer Active Marianne Abad Pariani DO Active VITAMIN D3 3000 UNIT ORAL TABLET 1 tab By Mouth Every day CHOLECALCIFEROL 15901621520 No Longer Active Marianne Abad Pariani DO Active FAMCICLOVIR 500 MG ORAL TABLET take 1 tablet By Mouth Every 8 hrs FAMCICLOVIR 97368509635 No Longer Active Marianne Abad Chelseyani DO Active LIDOCAINE 5 % EXTERNAL OINTMENT apply to affected area Twice a Day-tid 07/27 LIDOCAINE 97281042206 No Longer Active Marianne Barbosadenilson DO Active PROMETHAZINE HCL 12.5 MG ORAL TABLET take 1-2 tablets Every 4-6 hrs As Needed nauea PROMETHAZINE HCL 49059687343 No Longer Active Mariannekris BernardoAbad Chelseydenilson DO Active TYLENOL WITH CODEINE #3 TABLET Take one tab every 6 hours as needed for pain ACETAMINOPHEN-CODEINE TABS 58073751205 No Longer Active Marianne Barbosadenilson DO Active ZOFRAN 4 MG ORAL TABLET 1-2 tablets by mouth every 8 hours as needed for nausea ONDANSETRON HCL 93101549567 No Longer Active Marianne Abad Barbosaani DO Active HUMALOG 100 UNIT/ML SUBCUTANEOUS SOLUTION sc per SS with meals and Every at bedtime INSULIN LISPRO 02547092770 No Longer Active Marianne Abad Pariani DO Active HUMALOG KWIKPEN 100 UNIT/ML SUBCUTANEOUS SOLUTION PEN-INJECTOR sc per SS with meals INSULIN LISPRO 78148596345 No Longer Active Marianne Abad Pariani DO Active NOVOLOG FLEXPEN 100 UNIT/ML SUBCUTANEOUS SOLUTION PEN-INJECTOR sc per SS with meals INSULIN ASPART 21482527427 No Longer Active Naomie Pelaez COPY COORDINATOR Active ERGOCALCIFEROL 98006 UNIT ORAL CAPSULE take 1 tab Every wk X 12 wks ERGOCALCIFEROL 07823127983 No Longer Active Marianne Abad Baeza DO Active HYDRALAZINE HCL 10 MG ORAL TABLET take 1 tab By Mouth tid HYDRALAZINE HCL 62975536260 No Longer Active Marianne Abad Barbosaani DO Active ZETIA 10 MG ORAL TABLET take 1 tab By Mouth Every day EZETIMIBE 20012545537 No Longer Active Marianne Abad Barbosadenilson DO Active ALEVE TABLET 1-2 tabs As Needed pain NAPROXEN SODIUM TABS 48717694952 No Longer Active Marianne Abadberto Baeza DO Active AMLODIPINE BESYLATE 10 MG ORAL TABLET take 1 tab By Mouth Every day AMLODIPINE BESYLATE 19769981869 No Longer Active Mariannekris BernardoAbadberto Baeza DO Active CYCLOBENZAPRINE HCL 10 MG ORAL TABLET take 1 tab By Mouth As Needed CYCLOBENZAPRINE HCL 57275251444 No Longer Active Marianne Abad Baeza DO Active LEVEMIR FLEXTOUCH 100 UNIT/ML SUBCUTANEOUS SOLUTION PEN-INJECTOR take 50 U By Mouth Twice a Day, titrate up to a fsg goal ~ 140 INSULIN DETEMIR 32643643685 No Longer Active Marianne Abad Baeza DO Active METFORMIN HCL 1000 MG ORAL TABLET 1 tab By Mouth bid METFORMIN HCL 91811867321 No Longer Active Marianne Abad Baeza DO Active SIMVASTATIN 40 MG ORAL TABLET take 1 tab By Mouth Every at bedtime SIMVASTATIN 61669932085 No Longer Active Naomie Pelaez COPY COORDINATOR Active Immunizations Vaccine Administration Date Value Standard [...] ... - Lab reticulocyte count, blood, absolute 844952 CELLS/UL 10*6/mm3 07207-39411 Lab Report: URINALYSIS REFLEX - Urinalysis appearance, urine CLEAR CLEAR Lab Report: COMPREHENSIVE METABOLIC PANEL, CBC (INCLUDES DIFF/PLT), INNA ... - Chemistry globulins, serum, total 2.7 G/DL (CALC) g/dL 1.9-3.7 Lab Report: COMPREHENSIVE METABOLIC PANEL, CBC (INCLUDES DIFF/PLT), INNA ... - Hematology platelet count 228 THOUSAND/UL 10*3/mm3 978-015 2932/09/20 red blood cell distribution width 14.4 % [...] pg/mL 200-1100 Absolute Neutrophil count 4935 {Cells}/uL 4979-7555 Lab Report: URINALYSIS REFLEX - Urinalysis protein, [...] Internal Correspondence: Pre-Visit Planning - CC care production team leader #1, name Lili Aragon Lab Report: COMPREHENSIVE [...] ... - Chemistry sodium, serum 126 mmol/L 114-533 4135/09/20 hemoglobin A1C, blood, as % of total [...] Provider Code Facility 00:32:20 CDT Est Patient Comprehensive-[id number] Marianne Abad Pariani DO [facility]-[address] [place] [address] 21:21:28 CDT Ofc Vst, Est Level V Marianne Abad Pariani DO [facility] [address] [place] [address] 16:00:39 CDT Est Patient Detailed - 46538 Marianne Abad Pariani DO [facility] [place] [address] 00:09:50 CDT Ofc Vst, Est Level V Marianne Abad Pariani DO [facility] [address] [place] [address] 23:16:00 CDT Est Patient Detailed - 57468 Marianne Abad Pariani DO [facility] [place] [address] 20:07:40 CDT Ofc Vst, Est Level V Marianne Abad Pariani DO [facility] [address] [place] [address] 14:14:04 CDT Est Patient Detailed - 74611 Marianne Abad Pariani DO [facility] [place] [address] 23:17:07 STRAIGHTEDGE WORKER Ofc Vst, Est Level V Marianne Abad Pariani DO [facility] [address] [facility] 23:49:16 STRAIGHTEDGE WORKER Ofc Vst, Est Level IV Marianne Abad Pariani DO [facility] [address] [place] [address] 23:33:28 STRAIGHTEDGE WORKER Ofc Vst, Est Level V Marianne Abad Pariani DO [facility] [address] [facility] 19:36:40 STRAIGHTEDGE WORKER Ofc Vst, Est Level IV Marianne Abad Pariani DO [facility] [address] [place] [address] 22:25:43 STRAIGHTEDGE WORKER Ofc Vst, Est Level IV Marianne Abad Pariani DO CPT- 53914 [facility] 21:38:23 STRAIGHTEDGE WORKER Ofc Vst, New Level IV Marianne Baeza DO CPT- 68068 [facility] Procedures Code Procedure Name Date Entry Date Standard Description CPT-66108 EKG - Tracing Only 21:21:28 CDT CPT-27933 EKG - Interpretation & Report Only 21:21:27 CDT CPT-40540 Urinalysis - Dip only - In House 16:04:03 CDT CPT-74946 Psychotherapy 30 (16-37*) min - 67475 (with patient and/or family member) 10:58:58 CDT CPT-72601 Diagnostic evaluation (no medical) - 66987 14:08:49 CDT CPT-78462 Glucose Stick 23:49:14 STRAIGHTEDGE WORKER CPT-92612 Glucose Stick 23:33:26 STRAIGHTEDGE WORKER CPT-94974 Glucose Stick 21:38:23 STRAIGHTEDGE WORKER
--- OUTSIDE RECORDS SUMMARY | 2017-07-31 20:56 | XMS REPORT | Clinical Summary ---
Author Author [facility] Organization [facility] Address Unknown Phone Unavailable Care Team Providers Care Emergency Services Dispatcher Name Role Phone Arsen Baeza MD PCP [...] (Primary Dx);Secondary 07/24/2017 hypertension;Renal insufficiency;Dizziness, nonspecific 03/30/2017 [facility] General Internal Medicine Andreas Reyes MD Urinary [...] vascular disease (Primary Dx) 09/23/2016 Orders Only Dimas Taylor MD 09/22/2016 Hospital Isaac aMtthews MD - Encounter 09/23/2016 09/22/2016 Conversion Isaac Matthews MD Encounter 09/22/2016 Orders Only Patricia Houston NP-C 09/09/2016 [facility] Radiology Tom Saini Jr., MD after 07/30/2016 [...] Taken Blood Pressure 128/62 07/24/2017 10:41 AM [facility] Pulse 72 07/24/2017 10:41 AM [facility] Temperature 36.3 C (97.4 F) 07/24/2017 7:51 AM [facility] Respiratory Rate 17 07/24/2017 7:51 AM [facility] Oxygen Saturation 96% 07/24/2017 7:51 AM [facility] Inhaled Oxygen - - Concentration Weight 94.8 kg (208 lb 15.9 oz) 07/23/2017 4:32 AM [facility] Height 160 cm (5' 2.99") 07/23/2017 4:32 AM [facility] Body Mass Index 37.03 07/23/2017 4:32 AM [facility] Plan of Treatment Health Maintenance Due Date Last Done Comments COLONOSCOPY 1997 ZOSTER VACCINE 2007 PNEUMOCOCCAL 2012 POLYSACCHARIDE VACCINE AGE 65 AND OVER MAMMOGRAM 06/18/2018 06/18/2016 INFLUENZA VACCINE Completed 03/18/2017 PNEUMOCOCCAL-13 Completed 03/18/2017 Implants Implanted Type Area Clinical Research Manager Device Expiration Model / Identifier Date Serial / Lot Ports Ports Procedures Procedure Name Priority Date/Time Associated Diagnosis Comments ECHOCARDIOGRAM 2D Routine 07/23/2017 Results for this COMPLETE W MMODE SPECTRAL 4:49 PM SP[facility] procedure are in the COLOR DOPPLER (19398) results section. [place] CRITICAL CARE, E/M Routine 03/30/2017 Results for this 30-74 MINUTES 10:03 AM CDT procedure are in the results section. ECHOCARDIOGRAM 2D Routine 03/18/2017 Results for this COMPLETE W MMODE SPECTRAL 11:15 AM CDT procedure are in the COLOR DOPPLER (68677) results section. CV STRESS TEST Routine 09/23/2016 [...] and Americans. Specimen Performing Laboratory Plasma specimen [facility] [address] [place] [address] * CBC with platelet and differential (07/24/2017 [...] - 1.0 % Specimen Performing Laboratory Blood [facility] [address] [place] [address] * Basic metabolic panel (07/24/2017 9:07 AM) [...] 10.7 mg/dL Specimen Performing Laboratory Plasma specimen [facility] [address] [place] [address] * POC glucose (07/24/2017 6:16 AM) Only the most recent of 42 results within the time period is included. Component Value Ref Range POC glucose 272 (H) 65 - 100 mg/dL Comment: Meter ID: [id number] Carpet Inspector: Shwetha Prince Specimen Performing Laboratory [facility] [address] [place] [address] * Echocardiogram complete w contrast and 3D [...] R1 5.56 Specimen Performing Laboratory [facility] [address] [place] [address] Narrative The left ventricle chamber size is [...] ED Physician in the absence of a degreaser operator: yes Previous ECG: Previous ECG:Unavailable Interpretation: Interpretation: [...] Site: Clean catch Specimen Performing Laboratory Urine [facility] DEPARTMENT OF PATHOLOGY AND GENOMIC MEDICINE [address] [place] [address] * Urine culture (07/23/2017 1:40 PM) Only the most recent of 3 results within the time period is included. Component Value Ref Range Urine culture isolate Streptococcus group B 10-1 cfu/ml (A) Comment: Specimen Information Specimen Source: Urine Specimen Site: Clean catch Urine culture isolate Mixed Gram positive faina 10-3 cfu/ml (A) Specimen Performing Laboratory Urine [facility] DEPARTMENT OF PATHOLOGY AND GENOMIC MEDICINE [address] [place] [address] * Urinalysis screen and microscopy, with reflex [...] UA 3 /LPF Specimen Performing Laboratory Urine [facility] [address] [place] [address] * Prothrombin time with INR (07/23/2017 4:26 [...] values over 4.0. Specimen Performing Laboratory Blood [facility] [address] [place] [address] * Hemoglobin A1c (07/23/2017 4:26 AM) Only [...] indicated. (A DA94) Specimen Performing Laboratory Blood [facility] [address] [place] [address] * Lipid panel (07/23/2017 4:26 AM) Only [...] (>=200 mg/dL) Specimen Performing Laboratory Plasma specimen [facility] [address] [place] [address] [place] [address] * Troponin (07/23/2017 12:22 AM) Only the [...] myocardial injury. Specimen Performing Laboratory Plasma specimen [facility] [address] [place] [address] [place] [address] * CT Head Wo Contrast (07/22/2017 9:46 PM) Only the most recent of 2 results within the time period is included. Specimen Performing Laboratory [facility] [address] [place] [address] Narrative EXAMINATION: CT HEAD WO CONTRAST CLINICAL [...] detailed above with no acute intracranial abnormality. [facility]-[id number] Procedure Note Interface, Radiology Results Incoming - 07/22/2017 9:56 PM [facility] EXAMINATION: CT HEAD WO CONTRAST CLINICAL HISTORY: [...] detailed above with no acute intracranial abnormality. [facility]-[id number] * XR Chest 2 Vw (07/22/2017 9:25 PM) Only the most recent of 2 results within the time period is included. Specimen Performing Laboratory [facility] [address] [place] [address] Narrative EXAMINATION:XR CHEST 2 VW CLINICAL HISTORY:dizziness COMPARISON:03/30/2017 IMPRESSION: Right chest port is again seen with tip projecting over superior vena cava. No consolidations, effusions, or pneumothorax. Cardiomediastinal silhouette is within normal limits. No acute osseous abnormalities. Mild degenerative change of the lower thoracic spine. [facility]-[id number] Procedure Note Interface, Radiology Results Incoming - 07/22/2017 9:35 PM [facility] EXAMINATION: XR CHEST 2 VW CLINICAL HISTORY: dizziness COMPARISON: 03/30/2017 IMPRESSION: Right chest port is again seen with tip projecting over superior vena cava. No consolidations, effusions, or pneumothorax. Cardiomediastinal silhouette is within normal limits. No acute osseous abnormalities. Mild degenerative change of the lower thoracic spine. [facility]-[id number] * B natriuretic peptide (07/22/2017 7:18 PM) Only the most recent of 3 results within the time period is included. Component Value Ref Range BNP 140 (H) 0 - 100 pg/mL Specimen Performing Laboratory Blood [facility] [address] [place] [address] * Comprehensive metabolic panel (07/22/2017 7:18 PM) [...] 1.2 mg/dL Specimen Performing Laboratory Plasma specimen [facility] [address] [place] [address] * ECG 12 lead (07/22/2017 6:20 PM) Only the most recent of 5 results within the time period is included. Component Value Ref Range Ventricular rate 87 Atrial rate 87 OH interval 148 QRSD interval 82 QT interval 476 QTC interval 572 P axis 1 74 QRS axis 1 -76 T wave axis 43 EKG impression Normal sinus rhythm-Left axis deviation-Nonspecific ST and T wave abnormality- Specimen Performing Laboratory [facility] [address] [place] [address] * Hepatic function panel (04/02/2017 5:14 AM) [...] 37 U/L Specimen Performing Laboratory Plasma specimen [facility] [address] [place] [address] * NM Lung Ventilation Perfusion (04/01/2017 9:38 PM) Only the most recent of 2 results within the time period is included. Specimen Performing Laboratory [facility] [address] [place] [address] Narrative PROCEDURE:NM LUNG VENTILATION PERFUSION INDICATION:Dyspnea. COMPARISON:Prior [...] probability for PE. 2.No change from 09/22/16. [facility]-[id number] Procedure Note Interface, Radiology Results Incoming - [...] for PE. 2. No change from 09/22/16. [facility]-[id number] * CT Chest Wo Contrast (04/01/2017 5:53 PM) Specimen Performing Laboratory [facility] [address] [place] [address] Narrative Study:CT CHEST WO CONTRAST History: pulmonary [...] pulmonary nodule in the right upper lobe. [facility]-[id number] Procedure Note Interface, Radiology Results Incoming - [...] pulmonary nodule in the right upper lobe. [facility]-[id number] * D-dimer (04/01/2017 11:22 AM) Only the [...] sepsis, and malignancies. Specimen Performing Laboratory Blood [facility] [address] [place] [address] * Vancomycin level, trough (04/01/2017 11:22 AM) Component Value Ref Range Vancomycin, trough 18.4 10.0 - 20.0 ug/mL Comment: Therapeutic Ranges: Peak 30.0 - 40.0 ug/mL Trough 10.0 - 20.0 ug/mL Specimen Performing Laboratory Blood [facility] [address] [place] [address] * Consult to Sepsis Response Team (03/30/2017 [...] Performed by: ANDREAS REYES Authorized by: ANDREAS REYES Critical care provider statement: Critical care time [...] time period is included. Specimen [facility] [address] [place] [address] Narrative EXAMINATION:XR CHEST 1 VW PORTABLE CLINICAL [...] The patient is status post median sternotomy. [facility]-[id number] Procedure Note Interface, Radiology Results Incoming - [...] The patient is status post median sternotomy. [facility]-[id number] * Blood culture, aerobic & anaerobic (03/30/2017 8:09 AM) Only the most recent of 2 results within the time period is included. Component Value Ref Range Blood culture isolate No growth after 5 days of incubation. Comment: Specimen Information Specimen Source: Blood Specimen Site: Peripheral Arm Right Specimen Performing Laboratory Blood [facility] DEPARTMENT OF PATHOLOGY AND GENOMIC MEDICINE [address] [place] [address] * Partial thromboplastin time, activated (03/30/2017 8:09 [...] validate this result. Specimen Performing Laboratory Blood [facility] [address] [place] [address] * Lipase level (03/30/2017 8:09 AM) Component Value Ref Range Lipase 240 (H) 65 - 230 U/L Specimen Performing Laboratory Plasma specimen [facility] [address] [place] [address] * Lactic acid level (03/30/2017 8:09 AM) Component Value Ref Range Lactic acid 1.1 0.5 - 2.2 mmol/L Specimen Performing Laboratory Blood [facility] [address] [place] [address] * Venous blood gas (03/30/2017 8:09 AM) Component Value Ref Front Office Representative JLCM Collection site RAC O2 therapy ROOM [...] - 16.0 g/dL Specimen Performing Laboratory Blood [facility] [address] [place] [address] * Creatine kinase, total (CPK) (03/30/2017 8:09 AM) Only the most recent of 4 results within the time period is included. Component Value Ref Range Creatine kinase 65 61 - 224 U/L Specimen Performing Laboratory Plasma specimen [facility] [address] [place] [address] * Echocardiogram complete w contrast and 3D [...] R1 5.60 Specimen Performing Laboratory [facility] [address] [place] [address] Narrative The left ventricle chamber size is normal. Left Ventricular ejection fraction is 60 - 65%. Spectral Doppler shows impaired relaxation pattern of left ventricular diastolic filling. The anterior leaflet is moderate thickened and/or calcified. There is a mild prolapse of the mitral valve. Mild mitral valve stenosis. * MRI Brain Wo Contrast (03/17/2017 4:29 PM) Specimen Performing Laboratory [facility] [address] [place] [address] Narrative EXAMINATION:MRI BRAIN WO CONTRAST CLINICAL HISTORY: [...] of acute infarction, hemorrhage, or mass lesion. [id number] Procedure Note Hm Interface, Radiology Results Incoming [...] of acute infarction, hemorrhage, or mass lesion. [facility]-[id number] * Beta hydroxybutyrate (03/11/2017 5:58 PM) Component Value Ref Range Beta hydroxybutyrate 0.10 0.02 - 0.27 mmol/L Specimen Performing Laboratory Blood [facility] [address] [place] [address] [place] [id number] * Total iron binding capacity (09/23/2016 4:14 PM) Component Value Ref Range Iron level 35 (L) 76 - 198 ug/dL Iron binding capacity 303 260 - 460 ug/dL % Saturation 11.6 (L) 15.0 - 50.0 % Specimen Performing Laboratory [facility] [address] [place] [address] [place] [id number] * Chidester lambda free light chain with ratio (09/23/2016 4:14 PM) Component Value Ref Range Lambda light chain 42.24 (H) 5.70 - 26.30 mg/L Chidester light chain 103.66 (H) 3.30 - 19.40 mg/L Chidester lambda ratio 2.45 (H) 0.26 - 1.65 Specimen Performing Laboratory [facility] DEPARTMENT OF PATHOLOGY AND GENOMIC MEDICINE [address] [place] [address] * Transferrin level (09/23/2016 4:14 PM) Component Value Ref Range Transferrin 224 200 - 360 mg/dL Specimen Performing Laboratory [facility] DEPARTMENT OF PATHOLOGY AND GENOMIC MEDICINE [address] [place] [address] * Serum electrophoresis (09/23/2016 4:14 PM) Component [...] MD, Tati Soni MD Specimen Performing Laboratory [facility] DEPARTMENT OF PATHOLOGY AND GENOMIC MEDICINE [address] [place] [address] * LDH (09/23/2016 4:14 PM) Component Value Ref Range LDH 166 81 - 234 U/L Specimen Performing Laboratory [facility] [address] [place] [address] * Folate level (09/23/2016 4:14 PM) Component Value Ref Range Folate 12.7 3.4 - 20.0 ng/mL Specimen Performing Laboratory [facility] [address] [place] [address] * Ferritin level (09/23/2016 4:14 PM) Component Value Ref Range Ferritin level 43 10 - 125 ng/mL Specimen Performing Laboratory [facility] [address] [place] [address] * Vitamin B12 level (09/23/2016 4:14 PM) Component Value Ref Range Vitamin B12 209 (L) 231 - 931 pg/mL Comment: Significant overlap exists between normal and deficiency states. However, most patients with deficiencies will have Serum B12 <200 pg/mL. Specimen Performing Laboratory [facility]IC[facility] [address] [place] [address] * Beta-2 microglobulin (09/23/2016 4:14 PM) Component Value Ref Range Beta-2 microglobulin 7.0 (H) 0.8 - 2.2 mg/L Specimen Performing Laboratory [facility] DEPARTMENT OF PATHOLOGY AND GENOMIC MEDICINE [address] [place] [address] * Cv exercise treadmill stress (no imaging) [...] end of study. -- Specimen Performing Laboratory [facility] [address] [place] [address] * Magnesium level (09/23/2016 5:19 AM) Component Value Ref Range Magnesium 1.90 1.60 - 2.40 mg/dL Specimen Performing Laboratory [facility] [address] [place] [address] * Myoglobin (09/22/2016 10:03 PM) Only the most recent of 2 results within the time period is included. Component Value Ref Range Myoglobin 141.0 (H) 9.0 - 82.5 ng/mL Specimen Performing Laboratory [facility] [address] [place] [address] * CK-MB (09/22/2016 10:03 PM) Only the most recent of 3 results within the time period is included. Component Value Ref Range CK-MB 1.3 0.5 - 3.2 ng/mL Specimen Performing Laboratory [facility] [address] [place] [address] * Echocardiogram complete w contrast and 3D if needed (09/22/2016 1:55 PM) Specimen [facility] [address] [place] [address] Narrative Transthoracic Echocardiogram Report [address] [place] [address] Name:LAYO BOBO Sex: F Date: 09/22/2016 Encounter: [id number]: 1945 Time: 1:55:39 PM 71 yearsHeight: 71 in Room #:OPTU-03 Weight: 200.0 lbs BP:187/79 mmHg BSA: 2.1 m Ref. Physician:ISAAC MATTHEWS Senior Integration Developer: Rey Ogden Indications: CHEST PAIN Study Details: [...] CDT Transthoracic Echocardiogram Report [address] [place] [address] Name: LAYO BOBO Sex: F Date: 09/22/2016 Encounter: [id number] : 1945 Time: 1:55:39 PM Age: 71 years Height: 69 in Room #: OPTU-03 Weight: 200.0 lbs BP: 187/79 mmHg BSA: 2.1 m Ref. Physician: ISAAC MATTHEWS Senior Integration Developer: Rey Ogden Indications: CHEST PAIN Study Details: [...] Doppler (09/09/2016 2:42 PM) Specimen Performing Laboratory [facility] [address] [place] [address] Narrative PROCEDURE: ULTRASOUND RENAL ARTERIAL FLOW CLINICAL [...] or proximal right and left renal arteries. [id number] . Procedure Note Hm Interface, Radiology Conversion [...] or proximal right and left renal arteries. [id number] . after 07/30/2016 Insurance Payer Benefit Subscriber ID Type Phone Address Plan / Group [employer] MEDICARE AET [id number] O MEDICARE HMO/O [facility] [place] [address]
[2017-07-31] MEDS ORDERED: LISINOPRIL 20 MG TAB PO ONE (21:00)
[2017-07-31] MEDS: INSULIN REGULAR, HUMAN 100 UNIT/1 ML 3ML VIAL SQ SCH (21:24)
[2017-07-31 22:43] VITALS: BP 191/86
[2017-07-31 22:56] VITALS: BP 191/86
[2017-08-01] VITALS (7 sets, daily range): BP systolic 148–191; BP diastolic 61–93
[2017-08-01] MEDS ORDERED: LABETALOL HCL IV 5 MG/ML 20ML MDV IV STA (00:33)
[2017-08-01] MEDS: ONDANSETRON HCL INJ 2 MG/ML VIAL IV PRN ×2 (03:13→17:00)
[2017-08-01 05:18] LABS: BASOPHILS % 0.2 % (0.0-1.0); EOSINOPHILS # (AUTO) 0.1 (0.0-0.4); EOSINOPHILS % 1.3 % (0.0-6.0); HEMATOCRIT 32.8 % (34.2-44.1); HEMOGLOBIN 10.8 g/dL (12.0-16.0); LYMPHOCYTES % 29.1 % (18.0-39.1); MEAN CORPUSCULAR HEMOGLOBIN 28.3 pg (28-32); MEAN CORPUSCULAR HGB CONC 32.9 g/dL (31-35); MEAN CORPUSCULAR VOLUME 86.1 fL (81-99); MONOCYTES # (AUTO) 0.6 (0.2-0.8); NEUTROPHILS # (AUTO) 6.6 (2.1-6.9); NEUTROPHILS % 63.1 % (38.7-80.0); PLATELET COUNT 260 x10e3/uL (140-360); RED BLOOD COUNT 3.81 x10e6/uL (3.6-5.1); RED CELL DISTRIBUTION WIDTH 13.6 % (11.7-14.4)
[2017-08-01] MEDS: CARVEDILOL 12.5 MG TAB PO SCH ×2 (05:28→17:07)
[2017-08-01 05:37] LABS: ALBUMIN 3.2 g/dL (3.5-5.0); ALBUMIN/GLOBULIN RATIO 0.9 (0.8-2.0); ANION GAP 15.6 mmol/L (8-16); CALCIUM 8.7 mg/dL (8.4-10.2); CHOL/HDL RATIO 6.2 (3.0-3.6); CREATININE, SERUM 2.94 mg/dL (0.57-1.11); POTASSIUM 3.6 mmol/L (3.5-5.1)
[2017-08-01 05:46] LABS: CREATINE KINASE 269 IU/L (29-168)
[2017-08-01] MEDS: INSULIN REGULAR, HUMAN 100 UNIT/1 ML 3ML VIAL SQ SCH ×4 (08:30→23:24)
[2017-08-01] MEDS: METOCLOPRAMIDE HCL 10 MG TAB PO SCH ×4 (08:47→21:49)
[2017-08-01] MEDS: BACLOFEN 10 MG TAB PO SCH ×3 (08:47→21:49)
[2017-08-01] MEDS: ASPIRIN 81 MG ENTERIC COATED PO SCH (08:47)
[2017-08-01] MEDS: CLOPIDOGREL BISULFATE 75 MG TAB PO SCH (08:47)
[2017-08-01] MEDS: GABAPENTIN 300 MG CAP PO SCH ×2 (08:47→17:07)
[2017-08-01] MEDS: FAMOTIDINE 20 MG/2 ML VIAL IV SCH ×2 (08:47→21:49)
[2017-08-01 13:33] LABS: CREATINE KINASE MB 2.7 ng/mL (0.00-5.00)
--- NOTE | 2017-08-01 15:48 | History and Physical ---
PRIMARY CARE PHYSICIAN: None. FREIGHT REPRESENTATIVE: Patient does not recall. CHIEF COMPLAINT: Chest pain. HISTORY OF PRESENT ILLNESS: This is a 72-year-old woman with a history of coronary artery disease with coronary artery bypass grafting in 2007, status post stenting in 2007, status post another stent in 2008, now developing chest discomfort in the substernal region without any radiation or weight loss. It was associated with shortness of breath and dizziness. Pain still persists to some degree. The last stress test was about 4 years ago. PAST MEDICAL HISTORY 1. Diabetes mellitus, type 2. 2. Hypertension. 3. Diabetic nephropathy/chronic kidney disease, stage 4. 4. Coronary artery disease, status post coronary artery bypass grafting in 2007, status post stent placement in 2007, status post stent placement in 2008. PAST SURGICAL HISTORY: Coronary artery bypass grafting, coronary stent placement. ALLERGIES: PER ELECTRONIC MEDICAL RECORD. FAMILY HISTORY AND SOCIAL HISTORY: The patient is a . She has 4 children. No alcohol, illicits or cigarettes. MEDICATIONS: Per electronic medical record. REVIEW OF SYSTEMS: Denies any dizziness, fever, chills, sweats. PHYSICAL EXAMINATION VITAL SIGNS: Have been reviewed. On admission, her blood pressure was as high as 199/97. GENERAL: A tired-appearing woman resting in bed. HEENT: Anicteric. Pupils are responsive to light. No oral lesions. CARDIOVASCULAR: Normal S1 and S2. No murmur audible. LUNGS: Moderate breath sounds. ABDOMEN: Soft, nontender, nondistended. EXTREMITIES: She has trace edema. SKIN: Dry. PSYCHIATRIC: Flat affect. NEUROLOGIC: Alert and oriented times 3, moving all extremities. MUSCULOSKELETAL: She has tenderness in the substernal region on palpation. LABS: Reviewed. MEDICATIONS: Reviewed. ASSESSMENT AND PLAN: This is a 72-year-old woman. 1. Chest pain. Could be just musculoskeletal. There is a musculoskeletal component at least on physical exam. However, she does have significant history of coronary artery disease with bypass and stent. She also has diabetes mellitus. Therefore, we will consult cardiology for evaluation. The last stress test she states was about 4 years ago. In the meantime, we will use aspirin. Start beta pramod. Will continue Plavix at this time. Will check a lipid panel and initiate a statin regimen. 2. Diabetes mellitus, type 2. Will obtain a lipid panel and hemoglobin A1c. Use sliding scale insulin and diabetic diet. 3. Hypertensive emergency with chest pain and some renal dysfunction. Will control blood pressure with medication regimen. 4. Chronic kidney disease, stage 4. Patient does not recall any of her nephrologists. If there is a procedure that will be done, then we will need nephrology involvement. 5. Normocytic anemia. Will follow. 6. Prophylaxis: Will use heparin and Pepcid. Job#: [id number]
--- NOTE | 2017-08-01 18:36 | Consultation ---
DATE OF CONSULTATION: August 01, 2017 CARDIOLOGY CONSULTATION Thank you so much for asking me to see this nice lady in consultation. Ms. Dooley is a pleasant but complex 72-year-old woman who presented to the emergency room overnight with the complaint of substernal chest discomfort. HISTORY OF PRESENT ILLNESS: Patient reports that she had recently been hospitalized at [facility] for similar complaints, but when she returned to that hospital ER, they were unable to see her. Patient reports she has had influenza recently, and feels that she has not recovered from that yet. PAST MEDICAL HISTORY: Significant for long-standing diabetes, long-standing hypertension, hyperlipidemia. She reports that she had coronary artery bypass graft surgery at the [facility] in 2007. Followup studies afterwards showed that apparently one of her grafts had closed, and she was treated with coronary stent. However, she tells me that she has not had chest pain at those times. She did have previous endometrial carcinoma with hysterectomy with chemotherapy through a Port-A-Cath in 1998. She reports this Port-A-Cath has recently been used for IV iron treatments. She has had remote cholecystectomy, and has had recent ongoing wound care for left foot ulcer. She says she has seen Dr. Brennan, automotive sales representative, at the [facility] wound care clinic on this campus. HOME MEDICATIONS 1. Aspirin 81 mg daily. 2. Atorvastatin 20 mg daily. 3. Baclofen 10 mg t.i.d. p.r.n. 4. Carvedilol 12.5 mg b.i.d. 5. Cipro. 6. Plavix 75 mg daily. 7. Lexapro 10 mg daily. 8. Fenofibrate 160 mg daily. 9. Furosemide 20 mg p.r.n. 10. Gabapentin 300 mg tablet 600 mg b.i.d. 11. Humulin R 45 units subcutaneous b.i.d. 12. Tradjenta 5 mg daily. 13. Lisinopril 20 mg daily. 14. Lorazepam 0.5 mg p.r.n. 15. Metoclopramide 5 mg at bedtime. 16. Zofran. 17. Simvastatin 40 mg. 18. Cardene 20 mg every 8 hours. SOCIAL HISTORY: She does not smoke or drink. REVIEW OF SYSTEMS GASTROINTESTINAL: She reports substernal chest discomfort may be worse with eating, and may have some vomiting as well. PHYSICAL EXAMINATION GENERAL: At this time, shows a pleasant elderly woman who looks perhaps older than her stated age. VITALS: Blood pressure 150/90. HEENT: Unremarkable. NECK: No jugular venous distention. THORAX: A healed midline sternotomy and a right subclavian Port-A-Cath. HEART: S1 and S2 are equal. No murmurs. LUNGS: Clear. ABDOMEN: Protuberant. EXTREMITIES: Have no cyanosis, clubbing or edema. EKG shows sinus rhythm with nonspecific S/T and T-wave changes. PERTINENT LABORATORY STUDIES: Shows a cholesterol of 223, triglycerides 246, HDL 36, LDL 138. Presenting chemistries showed a BUN of 31, creatinine 3.3, glucose 225, but repeat study showed BUN 30, creatinine 2.94, glucose 157. Her BNP is 163. Urinalysis is contaminated with epithelial cells. CBC shows hemoglobin 10.8, white count 10.4, hematocrit 32.8, and platelets 260,000. CT of the abdomen without contrast shows diverticulosis. ASSESSMENT 1. Chest pain, etiology not clear. 2. Known coronary disease with previous coronary bypass graft surgery and stent. 3. Swallowing difficulty: She reports she has had no previous evaluation. 4. Renal insufficiency, known: She follows renal specialists in [place]. 5. Type 2 adult-onset diabetes. 6. Hypertension: Sounds to be labile. She reports that they working heard to control it at the [facility]. 7. Nonhealing foot ulcers with wound care by Dr. Brennan of podiatry. PLAN: She tells me that she has not had recent nuclear studies to evaluate her coronary status. Will check Cardiolite. Will monitor blood pressure and overall clinical status with you. Thank you for asking me to see her in consultation. Job#: [id number] STEPH
[2017-08-01] MEDS ORDERED: SIMVASTATIN 20 MG TAB PO SCH (21:00)
[2017-08-01] MEDS: SIMVASTATIN 20 MG TAB PO SCH (21:49)
[2017-08-01] MEDS: HEPARIN SOD (PORCINE) 5,000 UNIT/ML VIAL SC SCH (22:00)
[2017-08-02] VITALS (8 sets, daily range): BP systolic 139–205; BP diastolic 68–98
[2017-08-02] MEDS: ONDANSETRON HCL INJ 2 MG/ML VIAL IV PRN ×2 (03:08→08:23)
[2017-08-02] MEDS: FAMOTIDINE 20 MG/2 ML VIAL IV SCH ×2 (08:22→20:40)
[2017-08-02] MEDS: INSULIN REGULAR, HUMAN 100 UNIT/1 ML 3ML VIAL SQ SCH ×4 (08:24→21:00)
[2017-08-02] MEDS: CARVEDILOL 12.5 MG TAB PO SCH ×3 (08:24→20:30)
[2017-08-02] MEDS: BACLOFEN 10 MG TAB PO SCH ×3 (08:24→20:40)
[2017-08-02] MEDS: GABAPENTIN 300 MG CAP PO SCH ×2 (08:24→17:00)
[2017-08-02] MEDS: ASPIRIN 81 MG ENTERIC COATED PO SCH (08:25)
[2017-08-02] MEDS: METOCLOPRAMIDE HCL 10 MG TAB PO SCH ×4 (08:25→20:40)
[2017-08-02] MEDS: CLOPIDOGREL BISULFATE 75 MG TAB PO SCH (08:25)
[2017-08-02] MEDS: HEPARIN SOD (PORCINE) 5,000 UNIT/ML VIAL SC SCH ×2 (09:02→20:40)
[2017-08-02] MEDS ORDERED: REGADENOSON 0.4 MG/5 ML SYR IV ONE (10:20)
[2017-08-02] MEDS ORDERED: PROMETHAZINE 25MG/ NS 50ML (IV) IV ONE (10:30)
--- NOTE | 2017-08-02 11:47 | Consultation ---
DATE OF CONSULTATION: August 02, 2017 REASON FOR CONSULTATION: Chronic kidney disease. HPI: Ms. Dooley is a pleasant, 72-year-old woman who is well known to us. She follows with us at our [place] outpatient clinic. She has a history of coronary artery disease, chronic kidney disease, diabetes and hypertension. She presented to [facility] 2 days ago with complaint of chest pain and diffuse rash over arms and legs. She states the rash started a few days ago. No changes in the soaps, detergents or medications she's been started on, but she lives at [facility] so is unsure if they have changed anything. She has an extensive history of coronary artery disease. She is status post CABG in 2007. Upon presentation, her creatinine was 3.3 mg per dL and has trended down to 2.9 mg per dL yesterday. She is currently just completing the stress test during which she became nauseated and had a bout of vomiting. She was last seen in February 2017 at which point her creatinine was 2.3 mg per dL in our clinic. PAST MEDICAL HISTORY 1. Diabetes. 2. Hypertension. 3. Chronic kidney disease. PAST SURGICAL HISTORY: CABG. FAMILY HISTORY: No renal disease. SOCIAL HISTORY: No alcohol, tobacco or drug use. REVIEW OF SYSTEMS: Denies fevers, chills, chest pain, palpitations, abdominal pain, pain or burning with urination, numbness or tingling in upper or lower extremities, no changes in mood, no changes in appetite, no changes in thirst. The 14-point review of systems is otherwise negative. MEDICATIONS: Reviewed in the electronic medical record. LABS: Reviewed on electronic medical record. Bicarb 19, BUN 30, creatinine 2.9 mg per dL. Urine studies showed 3+ protein with moderate epithelial cells and 6-10 RBCs. IMAGING: Reviewed on electronic medical record. CT of the abdomen and pelvis performed without contrast showed no acute finding and mild colonic diverticulosis. ASSESSMENT AND PLAN 1. This 72-year-old woman with coronary artery disease presents with chest pain. 2. Chronic kidney disease. Undergoing stress test. Will continue to avoid NSAIDs. Will determine risk for contrast-induced nephropathy which will be substantial in the setting of chronic kidney disease, stage 4. If there is plan for contrast, will prophylactically give fluids before and after contrast. 3. Accelerated hypertension. Continue Coreg. 4. Metabolic acidosis. Will start sodium bicarbonate. Thank you, Dr. Cortes, for allowing me to participate in the care of Ms. Dooley. I will continue to follow closely. Job#: [id number] MITCHELL COYLE
[2017-08-02] MEDS ORDERED: POLYETHYLENE GLYCOL 3350 17 GM PACK PO PRN (12:30)
[2017-08-02] MEDS: OYST-CAL-D 500MG TABLET PO SCH ×2 (15:00→20:40)
[2017-08-02] MEDS: ASCORBIC ACID 500 MG TAB PO SCH (17:00)
[2017-08-02] MEDS: LACTOBACILLUS ACIDOPHILUS CAPSULE PO SCH (17:00)
[2017-08-02] MEDS: DOCUSATE SODIUM 100 MG CAP PO SCH (17:00)
[2017-08-02] MEDS: ZINC SULFATE 220 MG CAP PO SCH (17:00)
[2017-08-02] MEDS: SIMVASTATIN 20 MG TAB PO SCH (20:40)
[2017-08-03] VITALS (7 sets, daily range): BP systolic 140–228; BP diastolic 63–94
[2017-08-03 07:24] LABS: ANION GAP 11.2 mmol/L (8-16); CALCIUM 8.6 mg/dL (8.4-10.2); CREATININE, SERUM 3.07 mg/dL (0.57-1.11); PHOSPHORUS 3.8 MG/DL (2.3-4.7); POTASSIUM 4.2 mmol/L (3.5-5.1)
[2017-08-03 07:36] LABS: MAGNESIUM 1.8 MG/DL (1.3-2.1)
[2017-08-03] MEDS: INSULIN REGULAR, HUMAN 100 UNIT/1 ML 3ML VIAL SQ SCH ×4 (07:45→21:30)
[2017-08-03] MEDS: METOCLOPRAMIDE HCL 10 MG TAB PO SCH ×4 (07:45→22:00)
[2017-08-03] MEDS ORDERED: HYDRALAZINE HCL 20 MG/ML VIAL IV PRN (08:00)
[2017-08-03] MEDS: ASCORBIC ACID 500 MG TAB PO SCH ×2 (08:45→17:00)
[2017-08-03] MEDS: DOCUSATE SODIUM 100 MG CAP PO SCH ×2 (08:45→17:00)
[2017-08-03] MEDS: HEPARIN SOD (PORCINE) 5,000 UNIT/ML VIAL SC SCH ×2 (08:45→21:30)
[2017-08-03] MEDS: ASPIRIN 81 MG ENTERIC COATED PO SCH (08:45)
[2017-08-03] MEDS: FOLIC ACID/CYANOCOB/PYRIDOXINE TAB PO SCH (08:45)
[2017-08-03] MEDS: LACTOBACILLUS ACIDOPHILUS CAPSULE PO SCH ×2 (08:45→17:00)
[2017-08-03] MEDS: FAMOTIDINE 20 MG/2 ML VIAL IV SCH (08:45)
[2017-08-03] MEDS: OYST-CAL-D 500MG TABLET PO SCH ×3 (08:45→22:00)
[2017-08-03] MEDS: BACLOFEN 10 MG TAB PO SCH ×3 (08:45→22:00)
[2017-08-03] MEDS: ZINC SULFATE 220 MG CAP PO SCH ×2 (08:45→17:00)
[2017-08-03] MEDS: CLOPIDOGREL BISULFATE 75 MG TAB PO SCH (08:45)
[2017-08-03] MEDS: GABAPENTIN 300 MG CAP PO SCH ×2 (08:45→17:00)
[2017-08-03] MEDS ORDERED: LISINOPRIL 10 MG TAB PO SCH (09:00)
--- NOTE | 2017-08-03 11:37 | Progress Note ---
DATE: August 03, 2017 PROCEDURE: Wound debridement. HISTORY OF PRESENT ILLNESS: This 72-year-old female patient was admitted with chest pain. The patient has chronic, nonhealing ulcer to the left great toe. After explaining the procedure and obtaining verbal consent, I used a #10 blade and did an excisional debridement to the left great toe wound. Callus was removed, and there was some bleeding. Went through the subcutaneous tissue and removed part of the viable tissue. Wound was cleaned with normal saline. Applied Hydrogel, 4 x 4 and tape. The patient tolerated the procedure well. The patient has a rvda master certified rv technician as an outpatient, and she will be following with him. I suspect osteomyelitis. I recommend to do outpatient workup for osteomyelitis. Job#: [id number]
--- NOTE | 2017-08-03 12:50 | Consultation ---
DATE OF CONSULTATION: WOUND CONSULTATION HISTORY OF PRESENT ILLNESS: This is a 72-year-old female patient with history of diabetes and Charcot foot. She follows with a pediatric allergist for nonhealing ulcer to the left great toe. The patient has previous left great toe distal phalanx amputation. She has a wound on the plantar aspect of the left 1st toe. PAST MEDICAL HISTORY: Diabetes mellitus. PERSONAL HISTORY: No history of smoking or alcohol. SURGICAL HISTORY: Coronary artery bypass surgery, cholecystectomy, hysterectomy. PHYSICAL EXAMINATION VITAL: Blood pressure 118/70. HEENT: Exam is normal. NECK: Supple. LUNGS: Clear. ABDOMEN: Soft. Bowel sounds are normal. EXTREMITIES: Left great toe has distal phalanx amputated. On the plantar aspect, the patient has a wound with callus formation. ASSESSMENT: Diabetic foot ulcer, left great toe, with Charcot ankle and deformed foot. PLAN: Will debride the wound. Apply Hydrogel, 4 x 4 and tape. Job#: [id number]
--- NOTE | 2017-08-03 12:51 | Progress Note ---
DATE: August 03, 2017 REASON FOR CONSULTATION: Chronic kidney disease, stage 4 with superimposed BIANCA. SUBJECTIVE: No acute events overnight. Rash remains persistent. No complaints of itching at the sites of rash. Underwent stress test yesterday. OBJECTIVE GENERAL: Lying comfortably in bed, in no acute distress. VITAL SIGNS: Temperature 97.7, heart rate 70, respiratory rate 20, blood pressure 170/73, and O2 sat is 96%. LUNGS: Clear to auscultation bilaterally. No wheezing or rales. HEART: Regular rate and rhythm. S1, S2 normal. ABDOMEN: Soft, nontender, and nondistended. EXTREMITIES: No edema. Has a diffuse purpuric rash on upper and lower extremities that is nontender to touch. LABS: Reviewed on electronic medical record and significant for creatinine of 2 mg per dL from 3.3 mg per dL upon presentation. Results of stress test are currently pending. ASSESSMENT AND PLAN 1. Diffuse purpuric rash . We will follow up on the findings. 2. Acute kidney injury and chronic kidney disease, likely progression of chronic kidney disease since we last saw her in February when her creatinine was 2.1 mg per dL. We will monitor for improvement in kidney function. Abdominal CT from July 31, 2017, showed punctate right renal calcification, but otherwise no mention of hydronephrosis. Not need a repeat ultrasound. 3. Hypertension. Continue Coreg and lisinopril. 1. Chronic kidney disease, stage 4. Continue to avoid contrast and NSAIDs. We will need contrast prophylaxis and extensive discussion of the risk versus benefit of performing the procedure if stress is positive and needs cardiac catheterization. Job#: [id number] VAS
[2017-08-03] MEDS: FAMOTIDINE 20 MG TAB PO SCH (16:00)
[2017-08-03] MEDS: CARVEDILOL 12.5 MG TAB PO SCH (17:00)
[2017-08-03] MEDS: AMLODIPINE BESYLATE 10 MG TAB PO SCH (17:10)
[2017-08-03] MEDS: SIMVASTATIN 40 MG TAB PO SCH (22:00)
[2017-08-03] MEDS: CLONIDINE HCL 0.1 MG TAB PO PRN (23:50)
[2017-08-04] VITALS (7 sets, daily range): BP systolic 126–228; BP diastolic 60–94
[2017-08-04 07:01] LABS: BASOPHILS % 0.3 % (0.0-1.0); EOSINOPHILS # (AUTO) 0.1 (0.0-0.4); EOSINOPHILS % 1.3 % (0.0-6.0); HEMATOCRIT 30.6 % (34.2-44.1); HEMOGLOBIN 10.2 g/dL (12.0-16.0); LYMPHOCYTES # (AUTO) 1.8 (1.0-3.2); LYMPHOCYTES % 27.4 % (18.0-39.1); MEAN CORPUSCULAR HEMOGLOBIN 28.7 pg (28-32); MEAN CORPUSCULAR HGB CONC 33.3 g/dL (31-35); MONOCYTES # (AUTO) 0.3 (0.2-0.8); MONOCYTES % 4.8 % (4.4-11.3); NEUTROPHILS # (AUTO) 4.4 (2.1-6.9); NEUTROPHILS % 64.9 % (38.7-80.0); PLATELET COUNT 236 x10e3/uL (140-360); RED BLOOD COUNT 3.56 x10e6/uL (3.6-5.1); RED CELL DISTRIBUTION WIDTH 13.5 % (11.7-14.4)
[2017-08-04 07:26] LABS: ANION GAP 12.3 mmol/L (8-16); CALCIUM 9.3 mg/dL (8.4-10.2); CREATININE, SERUM 3.4 mg/dL (0.57-1.11); POTASSIUM 4.3 mmol/L (3.5-5.1)
[2017-08-04] MEDS: INSULIN REGULAR, HUMAN 100 UNIT/1 ML 3ML VIAL SQ SCH ×4 (07:30→20:25)
[2017-08-04] MEDS: FAMOTIDINE 20 MG TAB PO SCH ×2 (07:30→16:30)
[2017-08-04] MEDS: METOCLOPRAMIDE HCL 10 MG TAB PO SCH ×4 (07:30→20:48)
[2017-08-04] MEDS: BACLOFEN 10 MG TAB PO SCH ×3 (09:00→20:48)
[2017-08-04] MEDS: AMLODIPINE BESYLATE 10 MG TAB PO SCH (09:00)
[2017-08-04] MEDS: ASPIRIN 81 MG ENTERIC COATED PO SCH (09:00)
[2017-08-04] MEDS: CLOPIDOGREL BISULFATE 75 MG TAB PO SCH (09:00)
[2017-08-04] MEDS: HEPARIN SOD (PORCINE) 5,000 UNIT/ML VIAL SC SCH ×2 (09:00→20:26)
[2017-08-04] MEDS: ASCORBIC ACID 500 MG TAB PO SCH ×2 (09:00→17:00)
[2017-08-04] MEDS: LACTOBACILLUS ACIDOPHILUS CAPSULE PO SCH ×2 (09:00→17:00)
[2017-08-04] MEDS: FOLIC ACID/CYANOCOB/PYRIDOXINE TAB PO SCH (09:00)
[2017-08-04] MEDS: DOCUSATE SODIUM 100 MG CAP PO SCH ×2 (09:00→17:00)
[2017-08-04] MEDS: OYST-CAL-D 500MG TABLET PO SCH ×3 (09:00→20:48)
[2017-08-04] MEDS: ZINC SULFATE 220 MG CAP PO SCH ×2 (09:00→17:00)
[2017-08-04] MEDS: GABAPENTIN 300 MG CAP PO SCH ×2 (09:00→17:00)
[2017-08-04] MEDS: CARVEDILOL 12.5 MG TAB PO SCH ×2 (09:00→17:00)
--- NOTE | 2017-08-04 09:17 | Diagnostic Imaging Report ---
EXAMINATION: Head CT HISTORY: Lethargic, altered mental status COMPARISON: None available TECHNIQUE: Multidetector axial images were obtained without contrast from the foramen magnum to the vertex . The images were reconstructed using brain and bone algorithms. Thin section brain images were reformatted into coronal and sagittal planes. Intravenous contrast: None. Motion/streaking artifact limits the evaluation of the skull base and posterior cranial fossa. FINDINGS: Parenchyma: 1. Few scattered white matter hypodensities, most likely nonspecific changes, within normal limits for age. 2. No mass or hemorrhage. No CT evidence of acute territorial vascular insult. Extra-axial spaces:No abnormal density. No extra-axial fluid collections Brain volume: Mild generalized brain volume loss, within normal limits for age. Ventricles: No hydrocephalus or displacement. Arteries: No density suggestive of thrombus. Dural sinuses: No abnormal density. Extra-axial spaces: No abnormal density. Foramen magnum: No mass, Chiari malformation, or basilar invagination. Sella: No obvious mass. Paranasal/mastoid sinuses: Imaged portions unremarkable. Skull/Scalp: No lytic or blastic lesions. No fractures. IMPRESSION: 1. No acute intracranial hemorrhage, cortical infarct or hydrocephalus. 2. Mild chronic microvascular ischemic changes. Signed by: Dr. Kristi Larios M.D. on 08/04/2017 9:13 AM
[2017-08-04] MEDS ORDERED: SODIUM CHLORIDE 0.9% 1000ML 1,000 ML IV SCH (10:15)
--- NOTE | 2017-08-04 12:26 | Diagnostic Imaging Report ---
EXAMINATION: MRI of the brain without contrast. HISTORY: Altered mental status for the last 2 days COMPARISON: Head CT on 08/04/2017 TECHNIQUE: Sagittal T2; axial DWI, T2, FLAIR, T1-IR, T2 gradient echo; coronal FLAIR. IMAGE QUALITY: Adequate. Image quality: Motion artifact limits the evaluation of some of the sequences. FINDINGS: Parenchyma: 1. Few scattered and mildly confluent periventricular white matter T2 and FLAIR hyperintense foci, consistent with mild chronic microvascular ischemic changes. 2. No mass, hemorrhage, acute or chronic infarcts. Skull: Unremarkable. Vessels: Expected flow voids present in the major arteries and dural sinuses. Extra-axial spaces: No abnormal signal intensity or mass effect. Brain volume: Within normal limits for age. Ventricles: No hydrocephalus or displacement. Foramen magnum: Unremarkable. Sella: Unremarkable. Paranasal / mastoid sinuses: No significant inflammatory disease. IMPRESSION: 1. No acute or chronic infarct. 2. Mild chronic microvascular ischemic changes. Signed by: Dr. Kristi Larios M.D. on 08/04/2017 12:23 PM
--- NOTE | 2017-08-04 17:44 | Consultation ---
DATE OF CONSULTATION: August 04, 2017 at 4 p.m. NEUROLOGICAL CONSULTATION REASON FOR CONSULTATION: Altered mental status. This is a 72-year-old female who, according to the family, has been doing fine except she came to the hospital because of chest pain associated with some shortness of breath. The family stated that when she came to the hospital they gave her Phenergan for nausea and vomiting, and since then the patient has been sleepy, difficult to arouse. At times, she does not respond to stimulation. The family denies any previous problems like this in the past. The family denies any cognitive impairment in the past. PAST MEDICAL HISTORY: Diabetes mellitus, hypertension. She has history of diabetic neuropathy, coronary artery disease, status post coronary artery bypass, status post coronary stent. PAST SURGICAL HISTORY: Coronary quadruple bypass and coronary stent. MEDICATIONS: List of medications has been reviewed electronically. ALLERGIES: PER THE CLINICAL RECORD. FAMILY HISTORY: She is a . SOCIAL HISTORY: She does not smoke or drink. REVIEW OF SYSTEMS: Unable to perform because of the mental status. GENERAL PHYSICAL EXAMINATION VITAL SIGNS: Today, blood pressure is 139/79, pulse 62, temperature 95.8. LUNGS: Clear to auscultation. HEART: Regular sinus rhythm with no murmurs. ABDOMEN: Soft, no organomegaly. MUSCULOSKELETAL: Lower extremities no edema, no cyanosis. NEUROLOGIC: The patient is rather drowsy, very obtunded. On stimulation, she opens her eyes and looks around, and then she recognized family members by name. She follows commands. She squeezed my hands, moving her legs. Cranial nerves: Pupils are equal and reactive. Extraocular movements were full. Visual russell were normal. No facial weakness. Tongue protrudes midline. Motor power: There is no gross weakness in either upper or lower extremities. Plantar stimulation down bilaterally. Deep tendon reflexes: Triceps, biceps, radials 1+. Knee jerk and ankle jerk absent bilaterally. She has history of peripheral neuropathy. HEAD: Normocephalic. NECK: Supple. Carotid pulsations were present bilaterally. There were no bruits. LABORATORY DATA: CBC: White count 6700 with a hemoglobin of 10.2, hematocrit 38.6, platelets 236,000. Chemistry: On admission, sodium 141, potassium 4, BUN 31, creatinine 3.36. Estimated GFR is 14, low. Liver enzymes are normal. Blood sugar was 225. At the present time today, blood pressure is 238. BUN 32, creatinine 3.40. Estimated GFR 13, very low. Calcium 9.3. Urinalysis: 3+ protein, 1+ glucose, 2+ blood, WBCs none, RBCs 6-10, urine bacteria moderate high. MRI of the brain shows no evidence of acute pathology. There is no infarction, no bleeding. Mild chronic microvascular ischemic changes. IMPRESSION 1. Encephalopathic syndrome, multifactorial. 2. Hypertension. 3. Diabetes mellitus. RECOMMENDATIONS: Stop any p.o. pain medication that she is getting. We are going to give a little bit of Ritalin 5 mg in the morning. I have discussed with the family. I reassured them there is no evidence of any focal stroke, intracranial hemorrhage or anything like that. We are going to stop all those pain medications, sedatives that she is getting, and we are going to give her a little stimulant tomorrow with Ritalin 5 mg a day. I explained this to them and they agreed with that, and will be back tomorrow. Job#: [id number]
[2017-08-04] MEDS: SIMVASTATIN 40 MG TAB PO SCH (20:48)
[2017-08-05] VITALS: BP 169/87
[2017-08-05 07:09] LABS: BASOPHILS % 0.3 % (0.0-1.0); EOSINOPHILS # (AUTO) 0.2 (0.0-0.4); EOSINOPHILS % 2.2 % (0.0-6.0); HEMATOCRIT 32.5 % (34.2-44.1); HEMOGLOBIN 10.9 g/dL (12.0-16.0); LYMPHOCYTES # (AUTO) 2.4 (1.0-3.2); LYMPHOCYTES % 33.6 % (18.0-39.1); MEAN CORPUSCULAR HEMOGLOBIN 28.8 pg (28-32); MEAN CORPUSCULAR HGB CONC 33.5 g/dL (31-35); MONOCYTES # (AUTO) 0.4 (0.2-0.8); MONOCYTES % 4.8 % (4.4-11.3); NEUTROPHILS # (AUTO) 4.3 (2.1-6.9); NEUTROPHILS % 58.7 % (38.7-80.0); PLATELET COUNT 229 x10e3/uL (140-360); RED BLOOD COUNT 3.78 x10e6/uL (3.6-5.1); RED CELL DISTRIBUTION WIDTH 13.5 % (11.7-14.4)
[2017-08-05 07:25] VITALS: BP 187/76
[2017-08-05] MEDS: INSULIN REGULAR, HUMAN 100 UNIT/1 ML 3ML VIAL SQ SCH ×4 (07:30→20:20)
[2017-08-05 07:34] LABS: ANION GAP 13.3 mmol/L (8-16); CALCIUM 9.2 mg/dL (8.4-10.2); CREATININE, SERUM 3.1 mg/dL (0.57-1.11); POTASSIUM 4.3 mmol/L (3.5-5.1)
[2017-08-05 07:43] VITALS: BP 187/76
[2017-08-05] MEDS: FAMOTIDINE 20 MG TAB PO SCH ×2 (08:02→18:04)
[2017-08-05] MEDS: METOCLOPRAMIDE HCL 10 MG TAB PO SCH ×4 (08:02→20:20)
[2017-08-05] MEDS: DOCUSATE SODIUM 100 MG CAP PO SCH ×2 (09:00→18:04)
[2017-08-05] MEDS: HEPARIN SOD (PORCINE) 5,000 UNIT/ML VIAL SC SCH ×2 (09:00→20:20)
[2017-08-05] MEDS: OYST-CAL-D 500MG TABLET PO SCH ×3 (09:10→20:20)
[2017-08-05] MEDS: ZINC SULFATE 220 MG CAP PO SCH ×2 (09:10→18:05)
[2017-08-05] MEDS: BACLOFEN 10 MG TAB PO SCH ×3 (09:10→20:20)
[2017-08-05] MEDS: ASPIRIN 81 MG ENTERIC COATED PO SCH (09:10)
[2017-08-05] MEDS: CLOPIDOGREL BISULFATE 75 MG TAB PO SCH (09:10)
[2017-08-05] MEDS: AMLODIPINE BESYLATE 10 MG TAB PO SCH (09:10)
[2017-08-05] MEDS: GABAPENTIN 300 MG CAP PO SCH ×2 (09:10→18:05)
[2017-08-05] MEDS: LACTOBACILLUS ACIDOPHILUS CAPSULE PO SCH ×2 (09:10→18:05)
[2017-08-05] MEDS: CARVEDILOL 12.5 MG TAB PO SCH ×2 (09:10→18:05)
[2017-08-05] MEDS: ASCORBIC ACID 500 MG TAB PO SCH ×2 (09:10→18:05)
[2017-08-05] MEDS: FOLIC ACID/CYANOCOB/PYRIDOXINE TAB PO SCH (09:10)
[2017-08-05] MEDS: METHYLPHENIDATE HCL 10 MG TAB PO SCH (09:10)
[2017-08-05] MEDS ORDERED: ASCORBIC ACID500 MG PO (11:06)
[2017-08-05] MEDS ORDERED: ZINC SULFATE220 M1 PO (11:06)
[2017-08-05] MEDS ORDERED: MAGNESIUM OXID400 MG PO (11:06)
[2017-08-05] MEDS ORDERED: NEPHRO-VITE TABL1 EA PO (11:06)
[2017-08-05] MEDS ORDERED: DOCUSATE SODIU100 MG PO (11:06)
[2017-08-05] MEDS ORDERED: PROCARDIA XL30 MG PO (11:06)
[2017-08-05] MEDS ORDERED: LORAZEPAM0.5 MG PO (11:06)
[2017-08-05] MEDS ORDERED: BACLOFEN10 MG PO (11:06)
[2017-08-05] MEDS ORDERED: Calcium Carbonate PO (11:06)
[2017-08-05] MEDS ORDERED: BISACODYL 5 MG TAB EC PO ONE (11:20)
[2017-08-05 11:32] VITALS: BP 136/59
--- NOTE | 2017-08-05 13:02 | Progress Note ---
DATE: August 05, 2017 REASON FOR CONSULTATION: Chronic kidney disease. SUBJECTIVE: No acute events overnight. Patient's family has written for discharge as they feel she is not stable on her feet. OBJECTIVE GENERAL: Lying comfortably in bed, in no acute distress. VITAL SIGNS: Temperature 97, heart rate 66, respiratory rate 18, blood pressure 136/59, and O2 sat is 98% on room air. LUNGS: Clear to auscultation bilaterally. No wheezing or rales. HEART: Regular rate and rhythm. EXTREMITIES: No edema. LABS: Reviewed on electronic medical record, significant for BUN of 32 and creatinine of 3.1. IMAGING: Reviewed on electronic medical record. ASSESSMENT AND PLAN 1. A 72-year-old woman admitted with chest pain and has now developed altered mental status. 2. Chronic kidney disease stage 4. Kidney function currently on baseline. 3. Continue to avoid NSAIDs and contrast. 4. Accelerated hypertension. Continue amlodipine and Coreg. Job#: [id number] VAS
[2017-08-05 16:06] VITALS: BP 136/63
[2017-08-05] MEDS ORDERED: LACTULOSE SYRUP 20 GM/30 ML UDC PO ONE (19:45)
[2017-08-05] MEDS ORDERED: SOD PHOSPHATE/SOD BIPHOSPHATE ENEMA 132 ML BTL PR ONE (19:45)
[2017-08-05 20:00] VITALS: BP 160/81
[2017-08-05] MEDS: SIMVASTATIN 40 MG TAB PO SCH (20:20)
--- NOTE | 2017-08-05 22:49 | Diagnostic Imaging Report ---
Bone Scan, three-phase - feet and ankles Reason for exam: 72 F with diabetic foot ulcer on the plantar aspect of the left great toe; concern for osteomyelitis. Patient had amputation of distal phalanx of left great toe in 1977. Radiopharmaceutical: Tc-99m MDP 26.5 mCi Comparison: None Following intravenous administration of the radiopharmaceutical, dynamic flow and immediate blood pool images of the feet and ankles followed by 3-hour delayed spot images were obtained. Flow and blood pool images show mild diffusely increased tracer in the left foot and ankle compared to the right with focal mildly increased tracer in the proximal phalanx of the left great toe as well as increased tracer activity along the lateral aspect of the left hind foot. On the delayed images, diffusely mildly increased tracer activity is seen in the right foot compared to the left foot. Only very mildly increased tracer is seen in the proximal phalanx of the left great toe and at the left 1st metatarsophalangeal joint that is commensurate with the diffuse hyperemic process in the left foot. More markedly increased tracer activity is seen in the soft tissues of the lateral aspect of the left hind foot. The right foot is entirely unremarkable in appearance. Impression: 1. No convincing evidence of osteomyelitis in the remaining proximal phalanx of the left great toe or in the head of the left 1st metatarsal. 2. Inflammatory process in the soft tissues of the lateral aspect of the left hind foot. Signed by: Dr. Brittani Childers M.D. on 08/05/2017 10:45 PM
[2017-08-06] VITALS (7 sets, daily range): BP systolic 115–175; BP diastolic 54–85
[2017-08-06] MEDS: ONDANSETRON HCL INJ 2 MG/ML VIAL IV PRN (02:17)
[2017-08-06] MEDS ORDERED: SOD PHOSPHATE/SOD BIPHOSPHATE ENEMA 132 ML BTL PR ONE (02:34)
[2017-08-06] MEDS: INSULIN REGULAR, HUMAN 100 UNIT/1 ML 3ML VIAL SQ SCH ×4 (07:30→20:45)
[2017-08-06] MEDS: METOCLOPRAMIDE HCL 10 MG TAB PO SCH ×4 (07:30→20:44)
[2017-08-06] MEDS: FAMOTIDINE 20 MG TAB PO SCH ×2 (07:30→16:30)
[2017-08-06 08:04] LABS: ANION GAP 12.1 mmol/L (8-16); CALCIUM 8.9 mg/dL (8.4-10.2); CREATININE, SERUM 3.26 mg/dL (0.57-1.11); MAGNESIUM 1.8 MG/DL (1.3-2.1); PHOSPHORUS 4.3 MG/DL (2.3-4.7); POTASSIUM 4.1 mmol/L (3.5-5.1)
[2017-08-06] MEDS: GABAPENTIN 300 MG CAP PO SCH ×2 (09:00→17:27)
[2017-08-06] MEDS: LACTOBACILLUS ACIDOPHILUS CAPSULE PO SCH ×2 (09:00→17:27)
[2017-08-06] MEDS: FOLIC ACID/CYANOCOB/PYRIDOXINE TAB PO SCH (09:00)
[2017-08-06] MEDS: ASCORBIC ACID 500 MG TAB PO SCH ×2 (09:00→17:27)
[2017-08-06] MEDS: ASPIRIN 81 MG ENTERIC COATED PO SCH (09:00)
[2017-08-06] MEDS: CARVEDILOL 12.5 MG TAB PO SCH ×2 (09:00→17:26)
[2017-08-06] MEDS: ZINC SULFATE 220 MG CAP PO SCH ×2 (09:00→17:27)
[2017-08-06] MEDS: CLOPIDOGREL BISULFATE 75 MG TAB PO SCH (09:00)
[2017-08-06] MEDS: METHYLPHENIDATE HCL 10 MG TAB PO SCH (09:00)
[2017-08-06] MEDS: NIFEDIPINE CR 30 MG TAB PO SCH (10:00)
[2017-08-06] MEDS ORDERED: NON-FORMULARY MEDICATION (Linagliptin (Tradjenta) 5 MG) PO SCH (10:30)
[2017-08-06] MEDS: HEPARIN SOD (PORCINE) 5,000 UNIT/ML VIAL SC SCH ×2 (13:00→20:46)
--- NOTE | 2017-08-06 15:01 | Progress Note ---
DATE: August 06, 2017 RENAL PROGRESS NOTE The patient is followed for chronic kidney disease, stage 4. She has stable kidney function. Creatinine is 3.26 mg per dL today. It was 3.1 yesterday, still within her baseline. No nausea, no vomiting, no shortness of breath. OBJECTIVE VITAL SIGNS: Have been noted and are as follows: Blood pressure is 131/60, 56 pulse, afebrile. LUNGS: Clear to auscultation bilaterally. CARDIOVASCULAR: S1 and S2, no rub. ABDOMEN: Soft, nontender. EXTREMITIES: No edema. LABS: Sodium 137, potassium 4.1, chloride 108, bicarb 21, BUN 38, creatinine 3.26. IMPRESSION AND PLAN 1. Chronic kidney disease, stage 4. Stable kidney function. We will continue to monitor here in the hospital and follow up outpatient. 2. Hypertension. The blood pressure is controlled. 3. Proteinuria. Outpatient followup. 4. Anemia of chronic disease. Stable hemoglobin and hematocrit. Job#: [id number]
[2017-08-06] MEDS ORDERED: RISPERIDONE 0.5 MG TAB PO PRN (16:00)
[2017-08-06] MEDS ORDERED: POLYETHYLENE GLYCOL 3350 17 GM PACK PO SCH (17:00)
[2017-08-06] MEDS: POLYETHYLENE GLYCOL 3350 17 GM PACK PO SCH (17:26)
[2017-08-06] MEDS: BACLOFEN 10 MG TAB PO SCH (17:26)
[2017-08-06] MEDS: DOCUSATE SODIUM 100 MG CAP PO SCH (17:26)
[2017-08-06] MEDS: OYST-CAL-D 500MG TABLET PO SCH (17:27)
--- NOTE | 2017-08-06 18:07 | Consultation ---
DATE OF CONSULTATION: August 06, 2017 PSYCHIATRIC CONSULTATION REASON FOR CONSULTATION: To evaluate the patient's altered mental status and hallucinations. HISTORY OF PRESENT ILLNESS: The patient is 72-year-old female admitted to the hospital for chest pain. Psychiatric consultation is called to evaluate the patient's psychosis. As per medical records, the patient was admitted to the hospital for altered mental status and chest pain. Family members reported to neurology that they gave her Phenergan for nausea and vomiting which caused her to be drowsy and difficult to be aroused. Family members denied to neurology at the time that the patient has had no cognitive impairment in the past. Her medical history includes diabetes, hypertension, diabetic neuropathy, coronary artery disease, status post coronary artery bypass and stent. She was placed on Ritalin to increase alertness. However, the patient's medication was held today due to sedation and confusion. Upon evaluation today, the patient was found to be lying on her bed. She is surrounded by many family members in the room. The patient is alert, awake and oriented to situation. She knows where she is. She knows the current year. She does not know the reason for her hospitalization. The patient admits that she was confused yesterday and this morning she admits to seeing images of her who spoke to her and told her to come with him. Her is . The patient denies depression or anxiety. She denies fearfulness. She denies any hallucinations at this time. She denies feeling helpless or hopeless. She denies any suicidal or homicidal ideation. She denies any sleep problems, but admits to having issues with appetite due to the nausea. I had a discussion with the patient's family members at length with the patient present. They report that the patient has had memory issues for the last 2 years. She is forgetful at times. She is unable to put on her clothes. She has had 2 episodes of having visual hallucinations. She at one point was driving in her car to a restaurant at 3 a.m. in the morning thinking it was 3 p.m. in the afternoon. The family members also report that the patient's memory has progressively worsened for the last 2 years. The patient does not have any diagnosis of dementia, and she is not on any medications for dementia. PAST PSYCHIATRIC HISTORY: The patient denies any past psychiatric history. She denies past suicide attempt. She denies alcohol or drug use. FAMILY HISTORY: The patient denies any family history of psychiatric illness. SOCIAL HISTORY: The patient states she lives alone in a trailer but in the same compound as her son. MENTAL STATUS EXAM; The patient is an elderly female. She is alert, awake and oriented to situations and place and time. Her mood is fair. She denies any suicidal or homicidal ideation. Thought process is concrete, goal directed. Affect is ____ with mood. She denies any hallucinations. No delusional paranoia elicited. Insight and judgment are fair. Memory appears to be grossly intact at this time. CURRENT MEDICATIONS 1. Plavix. 2. Carvedilol. 3. Aspirin. 4. . 5. Calcium carbonate. 6. Docusate sodium. 7. Baclofen. 8. Dextrose. 9. Morphine p.r.n. 10. Neurontin 600 mg p.o. b.i.d. 11. Reglan. 12. Vitamin C. 13. Folic acid. 14. Probiotic. 15. Zinc sulfate. 16. Famotidine. 17. Ritalin 5 mg p.o. daily. 18. Procardia. 19. Insulin. 20. Clonidine. 21. Atorvastatin. 22. Ondansetron. CURRENT LABS: WBCs 7.24, RBCs 3.78, hemoglobin 10.9, hematocrit 32.5, platelets 229,000, sodium 137, potassium 4.1, chloride 108, co2 of 21, BUN 38, creatinine 3.26. ASSESSMENT: Unspecified psychosis. Memory poor, rule out dementia. PLAN: I had a long discussion with family members and provided them with outpatient psychiatric clinic to follow up for more definitive testing for dementia. Also, recommended them to seek driving facility to test her ability to continue driving regarding especially with intermittent confusion. Discontinue Ritalin as this can cause psychosis at times. Reduce Neurontin 600 mg p.o. b.i.d. to 300 mg p.o. b.i.d. due to sedation. Add 0.25 mg p.o. q.6 h. p.r.n. for psychosis and hallucinations. Supportive therapy. Thank you for this consultation. Job#: [id number]
[2017-08-06] MEDS: SIMVASTATIN 40 MG TAB PO SCH (20:46)
[2017-08-07] VITALS: BP 190/81
[2017-08-07] MEDS: CLONIDINE HCL 0.1 MG TAB PO PRN (00:31)
[2017-08-07 04:00] VITALS: BP 151/62
[2017-08-07] MEDS: FAMOTIDINE 20 MG TAB PO SCH ×2 (07:30→16:30)
[2017-08-07] MEDS: METOCLOPRAMIDE HCL 10 MG TAB PO SCH ×4 (07:30→21:00)
[2017-08-07] MEDS: INSULIN REGULAR, HUMAN 100 UNIT/1 ML 3ML VIAL SQ SCH ×4 (07:30→21:08)
[2017-08-07 07:58] LABS: BASOPHILS % 0.3 % (0.0-1.0); EOSINOPHILS # (AUTO) 0.2 (0.0-0.4); EOSINOPHILS % 2.2 % (0.0-6.0); HEMATOCRIT 31.4 % (34.2-44.1); HEMOGLOBIN 10.5 g/dL (12.0-16.0); LYMPHOCYTES # (AUTO) 2.8 (1.0-3.2); LYMPHOCYTES % 36.3 % (18.0-39.1); MEAN CORPUSCULAR HEMOGLOBIN 28.4 pg (28-32); MEAN CORPUSCULAR HGB CONC 33.4 g/dL (31-35); MEAN CORPUSCULAR VOLUME 84.9 fL (81-99); MONOCYTES # (AUTO) 0.4 (0.2-0.8); MONOCYTES % 5.8 % (4.4-11.3); NEUTROPHILS # (AUTO) 4.2 (2.1-6.9); NEUTROPHILS % 55.1 % (38.7-80.0); PLATELET COUNT 207 x10e3/uL (140-360); RED CELL DISTRIBUTION WIDTH 13.5 % (11.7-14.4)
[2017-08-07 08:00] VITALS: BP 167/74
[2017-08-07 08:41] LABS: ANION GAP 12.5 mmol/L (8-16); CALCIUM 9.4 mg/dL (8.4-10.2); CREATININE, SERUM 3.06 mg/dL (0.57-1.11); MAGNESIUM 1.9 MG/DL (1.3-2.1); POTASSIUM 4.5 mmol/L (3.5-5.1)
[2017-08-07] MEDS: DOCUSATE SODIUM 100 MG CAP PO SCH ×2 (08:54→17:49)
[2017-08-07] MEDS: ASPIRIN 81 MG ENTERIC COATED PO SCH (08:54)
[2017-08-07] MEDS: BACLOFEN 10 MG TAB PO SCH ×2 (08:55→17:51)
[2017-08-07] MEDS: POLYETHYLENE GLYCOL 3350 17 GM PACK PO SCH (08:55)
[2017-08-07] MEDS: [UNRECOGNIZED DRUG - OTHER] PO SCH (08:55)
[2017-08-07] MEDS: ASCORBIC ACID 500 MG TAB PO SCH ×2 (08:55→17:51)
[2017-08-07] MEDS: HEPARIN SOD (PORCINE) 5,000 UNIT/ML VIAL SC SCH ×2 (08:55→21:07)
[2017-08-07] MEDS: OYST-CAL-D 500MG TABLET PO SCH ×2 (08:55→17:51)
[2017-08-07] MEDS: CLOPIDOGREL BISULFATE 75 MG TAB PO SCH (08:55)
[2017-08-07] MEDS: FOLIC ACID/CYANOCOB/PYRIDOXINE TAB PO SCH (08:55)
[2017-08-07] MEDS: NIFEDIPINE CR 30 MG TAB PO SCH (08:55)
[2017-08-07] MEDS: LINAGLIPTIN PO SCH (08:55)
[2017-08-07] MEDS: ZINC SULFATE 220 MG CAP PO SCH ×2 (08:55→17:51)
[2017-08-07] MEDS: GABAPENTIN 300 MG CAP PO SCH ×2 (08:55→17:51)
[2017-08-07] MEDS: CARVEDILOL 12.5 MG TAB PO SCH ×2 (08:55→17:50)
[2017-08-07] MEDS: LACTOBACILLUS ACIDOPHILUS CAPSULE PO SCH ×2 (08:55→17:51)
[2017-08-07] MEDS ORDERED: NON-FORMULARY MEDICATION (Linagliptin (Tradjenta) 5 MG) PO SCH (09:00)
[2017-08-07 12:00] VITALS: BP 170/72
[2017-08-07 16:00] VITALS: BP 153/70
[2017-08-07 20:00] VITALS: BP 160/69
[2017-08-07] MEDS ORDERED: TRAMADOL HCL 50 MG TAB PO PRN (20:30)
[2017-08-07] MEDS ORDERED: ACETAMINOPHEN 325 MG TAB PO PRN (20:30)
[2017-08-07] MEDS: SIMVASTATIN 40 MG TAB PO SCH (21:07)
[2017-08-08] VITALS: BP 110/54
[2017-08-08 04:00] VITALS: BP 150/68
[2017-08-08] MEDS: METOCLOPRAMIDE HCL 10 MG TAB PO SCH ×4 (07:30→21:25)
[2017-08-08] MEDS: INSULIN REGULAR, HUMAN 100 UNIT/1 ML 3ML VIAL SQ SCH ×4 (07:30→21:25)
[2017-08-08 07:59] LABS: BASOPHILS % 0.3 % (0.0-1.0); EOSINOPHILS # (AUTO) 0.3 (0.0-0.4); EOSINOPHILS % 3.5 % (0.0-6.0); HEMATOCRIT 32.8 % (34.2-44.1); HEMOGLOBIN 10.9 g/dL (12.0-16.0); LYMPHOCYTES # (AUTO) 2.8 (1.0-3.2); LYMPHOCYTES % 39.7 % (18.0-39.1); MEAN CORPUSCULAR HEMOGLOBIN 28.5 pg (28-32); MEAN CORPUSCULAR HGB CONC 33.2 g/dL (31-35); MEAN CORPUSCULAR VOLUME 85.6 fL (81-99); MONOCYTES # (AUTO) 0.4 (0.2-0.8); MONOCYTES % 5.7 % (4.4-11.3); NEUTROPHILS # (AUTO) 3.6 (2.1-6.9); NEUTROPHILS % 50.5 % (38.7-80.0); PLATELET COUNT 218 x10e3/uL (140-360); RED BLOOD COUNT 3.83 x10e6/uL (3.6-5.1); RED CELL DISTRIBUTION WIDTH 13.8 % (11.7-14.4)
[2017-08-08 08:00] VITALS: BP 169/68
[2017-08-08] MEDS: ASPIRIN 81 MG ENTERIC COATED PO SCH (08:18)
[2017-08-08] MEDS: DOCUSATE SODIUM 100 MG CAP PO SCH ×2 (08:18→17:37)
[2017-08-08] MEDS: FAMOTIDINE 20 MG TAB PO SCH ×2 (08:18→16:30)
[2017-08-08] MEDS: CARVEDILOL 12.5 MG TAB PO SCH ×2 (08:18→17:37)
[2017-08-08] MEDS: GABAPENTIN 300 MG CAP PO SCH ×2 (08:19→17:37)
[2017-08-08] MEDS: CLOPIDOGREL BISULFATE 75 MG TAB PO SCH (08:19)
[2017-08-08] MEDS: FOLIC ACID/CYANOCOB/PYRIDOXINE TAB PO SCH (08:19)
[2017-08-08] MEDS: LINAGLIPTIN PO SCH (08:19)
[2017-08-08] MEDS: POLYETHYLENE GLYCOL 3350 17 GM PACK PO SCH (08:19)
[2017-08-08] MEDS: HEPARIN SOD (PORCINE) 5,000 UNIT/ML VIAL SC SCH ×2 (08:19→21:25)
[2017-08-08] MEDS: LACTOBACILLUS ACIDOPHILUS CAPSULE PO SCH ×2 (08:19→17:38)
[2017-08-08] MEDS: ZINC SULFATE 220 MG CAP PO SCH ×2 (08:19→17:38)
[2017-08-08] MEDS: OYST-CAL-D 500MG TABLET PO SCH ×2 (08:19→17:37)
[2017-08-08] MEDS: BACLOFEN 10 MG TAB PO SCH ×2 (08:19→17:37)
[2017-08-08] MEDS: [UNRECOGNIZED DRUG - OTHER] PO SCH (08:19)
[2017-08-08] MEDS: ASCORBIC ACID 500 MG TAB PO SCH ×2 (08:19→17:37)
[2017-08-08] MEDS: NIFEDIPINE CR 30 MG TAB PO SCH ×2 (08:19→12:15)
[2017-08-08 08:20] LABS: CALCIUM 9.6 mg/dL (8.4-10.2); CREATININE, SERUM 3.02 mg/dL (0.57-1.11)
[2017-08-08 08:56] LABS: BILIRUBIN,URINE NEGATIVE (NEGATIVE); CLARITY,URINE CLEAR (CLEAR); COLOR,URINE YELLOW (YELLOW); KETONES,URINE NEGATIVE (NEGATIVE); LEUKOCYTE ESTERASE ,URINE TRACE (NEGATIVE); NITRITE,URINE NEGATIVE (NEGATIVE); PROTEIN,URINE DIPSTICK 3+ (NEGATIVE); URINE UROBILINOGEN 0.2 mg/dL (0.2 - 1)
[2017-08-08 09:13] LABS: BACTERIA,URINE RARE /HPF; EPITHELIAL CELLS,URINE MANY /LPF; RBC,URINE 0-5 /HPF (0-5)
[2017-08-08 12:00] VITALS: BP 167/79
[2017-08-08 16:00] VITALS: BP 136/67
[2017-08-08 20:00] VITALS: BP 120/58
[2017-08-08] MEDS: SIMVASTATIN 40 MG TAB PO SCH (21:25)
[2017-08-09] VITALS: BP 133/68
[2017-08-09 04:00] VITALS: BP 135/63
[2017-08-09 07:25] VITALS: BP 149/67
[2017-08-09] MEDS: METOCLOPRAMIDE HCL 10 MG TAB PO SCH ×4 (07:30→20:39)
[2017-08-09] MEDS: INSULIN REGULAR, HUMAN 100 UNIT/1 ML 3ML VIAL SQ SCH ×4 (07:30→20:38)
[2017-08-09 07:39] LABS: BASOPHILS % 0.1 % (0.0-1.0); EOSINOPHILS # (AUTO) 0.3 (0.0-0.4); EOSINOPHILS % 3.6 % (0.0-6.0); HEMATOCRIT 30.9 % (34.2-44.1); HEMOGLOBIN 10.2 g/dL (12.0-16.0); LYMPHOCYTES # (AUTO) 2.6 (1.0-3.2); LYMPHOCYTES % 37.3 % (18.0-39.1); MEAN CORPUSCULAR HEMOGLOBIN 28.4 pg (28-32); MEAN CORPUSCULAR VOLUME 86.1 fL (81-99); MONOCYTES # (AUTO) 0.4 (0.2-0.8); MONOCYTES % 6.3 % (4.4-11.3); NEUTROPHILS # (AUTO) 3.7 (2.1-6.9); NEUTROPHILS % 52.4 % (38.7-80.0); PLATELET COUNT 202 x10e3/uL (140-360); RED BLOOD COUNT 3.59 x10e6/uL (3.6-5.1); RED CELL DISTRIBUTION WIDTH 13.9 % (11.7-14.4)
[2017-08-09] MEDS: FAMOTIDINE 20 MG TAB PO SCH ×2 (07:59→16:30)
[2017-08-09 08:18] LABS: ANION GAP 12.5 mmol/L (8-16); CALCIUM 9.1 mg/dL (8.4-10.2); CREATININE, SERUM 2.91 mg/dL (0.57-1.11); POTASSIUM 4.5 mmol/L (3.5-5.1)
[2017-08-09] MEDS: HEPARIN SOD (PORCINE) 5,000 UNIT/ML VIAL SC SCH ×3 (09:00→21:00)
[2017-08-09] MEDS: ASPIRIN 81 MG ENTERIC COATED PO SCH (09:56)
[2017-08-09] MEDS: ASCORBIC ACID 500 MG TAB PO SCH ×2 (09:56→17:10)
[2017-08-09] MEDS: NIFEDIPINE CR 30 MG TAB PO SCH (09:56)
[2017-08-09] MEDS: CARVEDILOL 12.5 MG TAB PO SCH ×2 (09:56→17:10)
[2017-08-09] MEDS: POLYETHYLENE GLYCOL 3350 17 GM PACK PO SCH (09:56)
[2017-08-09] MEDS: FOLIC ACID/CYANOCOB/PYRIDOXINE TAB PO SCH (09:56)
[2017-08-09] MEDS: LACTOBACILLUS ACIDOPHILUS CAPSULE PO SCH ×2 (09:56→17:10)
[2017-08-09] MEDS: BACLOFEN 10 MG TAB PO SCH ×2 (09:56→17:10)
[2017-08-09] MEDS: CLOPIDOGREL BISULFATE 75 MG TAB PO SCH (09:56)
[2017-08-09] MEDS: [UNRECOGNIZED DRUG - OTHER] PO SCH (09:56)
[2017-08-09] MEDS: ZINC SULFATE 220 MG CAP PO SCH ×2 (09:56→17:10)
[2017-08-09] MEDS: DOCUSATE SODIUM 100 MG CAP PO SCH ×2 (09:56→17:10)
[2017-08-09] MEDS: LINAGLIPTIN PO SCH (09:56)
[2017-08-09] MEDS: GABAPENTIN 300 MG CAP PO SCH ×2 (09:56→17:10)
--- NOTE | 2017-08-09 10:10 | Progress Note ---
DATE: August 09, 2017 REASON FOR CONSULTATION: CKD, stage 4. SUBJECTIVE: No acute events overnight. Complaining of difficulty with expressing herself. Neurology has been consulted. OBJECTIVE GENERAL: Lying comfortably in bed, in no acute distress. VITAL SIGNS: Temperature 96.5, heart rate 59, respiratory rate 18. O2 sat is 100% on 2 L nasal cannula. LUNGS: Clear to auscultation bilaterally. No wheezing or rales. HEART: Regular rhythm. S1 and S2. ABDOMEN: Soft. Nontender and nondistended. EXTREMITIES: No edema. LABS: Reviewed on electronic medical record, significant for hemoglobin of 10.2, creatinine 2.9, BUN 42 and chloride 109. IMAGING: Reviewed on electronic medical record. Brain MRI performed last week showed no acute or chronic infarct with mild chronic microvascular changes. ASSESSMENT AND PLAN 1. Nonoliguric chronic kidney disease, stage 4. Continue to avoid NSAIDs and contrast. Medications reviewed on electronic medical record are dosed appropriately. 2. Hypertension. Continue Coreg. 3. Hypocalcemia. Will stop the calcium carbonate as calcium levels are now normalized. Job#: [id number]
[2017-08-09] MEDS: ONDANSETRON HCL INJ 2 MG/ML VIAL IV PRN ×2 (11:10→15:36)
[2017-08-09 11:19] VITALS: BP 149/67
[2017-08-09 12:00] VITALS: BP 179/75
--- NOTE | 2017-08-09 18:26 | Progress Note ---
DATE: August 09, 2017 PSYCHIATRIC PROGRESS NOTE The patient evaluated and events noted. The patient is in the room with her family members. She is having nausea and vomiting. The patient denies any depression or anxiety. She is not confused. However, she did have an episode of confusion thinking that there was a digging machine operator who is getting hurt and she needs to go, leave the hospital. She has not been combative or agitated per family members, that was only one episode today. Over the weekend, was uneventful. As per family members, she denies any hallucinations at this time. She denies any suicidal ideation. She reports some drowsiness with the nausea and vomiting medications. She denies any side effects from the medications from the psychiatric standpoint. ASSESSMENT: Unspecified psychosis; rule out dementia. PLAN: 1. Continue Neurontin 2 mg p.o. b.i.d. 2. Continue Risperdal 0.25 mg p.o. q.12 h. p.r.n. 3. Discussed with family members at length. 4. Supportive therapy. 5. Monitor for agitation and psychosis. Job#: [id number]
--- NOTE | 2017-08-09 19:47 | Diagnostic Imaging Report ---
Bone Scan, three-phase - feet and ankles Reason for exam: 72 F with nonhealing diabetic foot ulcer on plantar aspect of the left great toe; concern for osteomyelitis. 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 Radiopharmaceutical: Tc-99m MDP 26.5 mCi Comparison: None Following intravenous administration of the radiopharmaceutical, dynamic flow and immediate blood pool images of the feet and ankles followed by delayed spot images were obtained. Flow and blood pool images show diffuse, very mildly increased tracer in the left foot compared to the right foot with mildly increased tracer at the distal aspect of the left great toe. Increased tracer is also seen along the lateral aspect of the left hind foot. The delayed images show very minimally increased trace in the proximal phalanx of the left great toe and first metatarsophalangeal joint that is not as intense as tracer uptake seen on the blood pool image and is of the same intensity as the uptake in the other toes of the left foot. The uptake of tracer in the two is commensurate with the extent of hyperemia in the left foot and ankle compared to the right foot. Increased tracer is also seen in the soft tissues of the left hindfoot laterally. Impression: 1. No convincing scan evidence of osteomyelitis in the proximal phalanx of the left great toe or in the head of the left first metatarsal. 2. Soft tissue inflammation in the lateral aspect of the left hindfoot although images are not optimized to absolutely exclude osteomyelitis in the hindfoot. Correlate clinically. Signed by: Dr. Brittani Childers M.D. on 08/09/2017 7:43 PM
[2017-08-09 20:00] VITALS: BP 128/67
[2017-08-09] MEDS: SIMVASTATIN 40 MG TAB PO SCH (20:38)
[2017-08-10] VITALS: BP 133/60
[2017-08-10 04:00] VITALS: BP 133/71
[2017-08-10] MEDS: METOCLOPRAMIDE HCL 10 MG TAB PO SCH ×4 (07:30→20:01)
[2017-08-10 08:24] VITALS: BP 160/71
[2017-08-10] MEDS: LINAGLIPTIN PO SCH (09:20)
[2017-08-10] MEDS: [UNRECOGNIZED DRUG - OTHER] PO SCH (09:20)
[2017-08-10] MEDS: POLYETHYLENE GLYCOL 3350 17 GM PACK PO SCH (09:20)
[2017-08-10] MEDS: CARVEDILOL 12.5 MG TAB PO SCH ×2 (09:20→17:58)
[2017-08-10] MEDS: FOLIC ACID/CYANOCOB/PYRIDOXINE TAB PO SCH (09:20)
[2017-08-10] MEDS: ASPIRIN 81 MG ENTERIC COATED PO SCH (09:20)
[2017-08-10] MEDS: BACLOFEN 10 MG TAB PO SCH ×2 (09:20→17:57)
[2017-08-10] MEDS: GABAPENTIN 300 MG CAP PO SCH ×2 (09:20→17:57)
[2017-08-10] MEDS: DOCUSATE SODIUM 100 MG CAP PO SCH ×2 (09:20→17:57)
[2017-08-10] MEDS: LACTOBACILLUS ACIDOPHILUS CAPSULE PO SCH ×2 (09:21→17:57)
[2017-08-10] MEDS: CLOPIDOGREL BISULFATE 75 MG TAB PO SCH (09:21)
[2017-08-10] MEDS: ZINC SULFATE 220 MG CAP PO SCH ×2 (09:21→17:57)
[2017-08-10] MEDS: ASCORBIC ACID 500 MG TAB PO SCH ×2 (09:21→17:57)
[2017-08-10] MEDS: NIFEDIPINE CR 30 MG TAB PO SCH (09:21)
[2017-08-10] MEDS: INSULIN REGULAR, HUMAN 100 UNIT/1 ML 3ML VIAL SQ SCH ×4 (09:23→21:50)
[2017-08-10] MEDS: FAMOTIDINE 20 MG TAB PO SCH ×2 (09:23→17:57)
[2017-08-10] MEDS: HEPARIN SOD (PORCINE) 5,000 UNIT/ML VIAL SC SCH ×2 (09:23→21:50)
--- NOTE | 2017-08-10 11:37 | Progress Note ---
DATE: August 10, 2017 REASON FOR CONSULTATION: CKD, stage 4. SUBJECTIVE: No acute events overnight. Continues to complain of aphasia. OBJECTIVE GENERAL: No acute distress. VITAL SIGNS: Temperature 97.7, heart rate 65, respiratory rate 18, blood pressure 160/71, and O2 sat is 98%. LUNGS: Clear to auscultation bilaterally. No wheezing or rales. HEART: Regular rhythm. EXTREMITIES: No edema. LABS: Reviewed on electronic medical record, currently pending for today. From yesterday, BUN was 42 mg/dL and creatinine of 2.9 mg/dL. IMAGING: Reviewed on electronic medical record. ASSESSMENT AND PLAN 1. Chronic kidney disease, stage 4. Kidney function currently at baseline. Labs are currently pending. We will repeat labs in the a.m. Continue to avoid contrast and NSAIDs. 2. Accelerated hypertension. Continue Coreg, clonidine, and nifedipine. 3. Hypocalcemia, resolved. Stopped p.o. calcium. Job#: [id number] SAK
[2017-08-10] MEDS ORDERED: BISACODYL 10 MG SUPP PR ONE (12:15)
[2017-08-10] MEDS ORDERED: BISACODYL 10 MG SUPP PR PRN (12:15)
[2017-08-10] MEDS: ONDANSETRON HCL INJ 2 MG/ML VIAL IV PRN (12:34)
[2017-08-10] MEDS ORDERED: SOD PHOSPHATE/SOD BIPHOSPHATE ENEMA 132 ML BTL PR PRN ×2 (14:45→18:45)
[2017-08-10] MEDS ORDERED: LACTULOSE SYRUP 20 GM/30 ML UDC PO PRN ×2 (14:45→18:45)
[2017-08-10 16:00] VITALS: BP 151/69
--- NOTE | 2017-08-10 17:33 | Progress Note ---
DATE: August 10, 2017 PSYCHIATRIC PROGRESS NOTE The patient was evaluated and events noted. The patient is doing physical therapy in the hallway. She is still having nausea and vomiting. She reports having some confusion and hallucinations today. She thought that booking officer was being hurt. Her daughter informed me that the patient was seeing objects in the room that were not there. However, she does have some p.r.n. Risperdal but has not received any dosage. Upon reviewing of note from medical, the patient reported to medical doctor that she continued to have issue with expressing her thoughts. Neurology has been consulted. Consider to schedule Risperdal, however, in light of her complaint of aphasia, we will keep the prn Risperdal for now and wait for neurology to evaluate her. She does have p.r.n. Risperdal if she needs that. She denies any anxiety or depression. She is not confused. She denies any hallucinations. She denies any side effects of medication. ASSESSMENT: Unspecified psychosis; rule out dementia. PLAN: 1. Continue Neurontin 300 mg p.o. b.i.d. 2. Continue Risperdal 0.25 mg p.o. q.12 h. p.r.n. 3. Discussed with family members. 4. Supportive therapy. 5. Monitor for psychosis and mood. Job#: [id number]
[2017-08-10 20:00] VITALS: BP 148/75
[2017-08-10] MEDS: SIMVASTATIN 40 MG TAB PO SCH (20:01)
[2017-08-10 21:15] VITALS: BP 148/75
[2017-08-11] VITALS: BP 119/60
[2017-08-11 04:00] VITALS: BP 110/68
--- NOTE | 2017-08-11 06:42 | Diagnostic Imaging Report ---
EXAM: ABDOMEN-1VIEW (KUB) DATE: 08/11/2017 5:00 AM Time stamp on exam: 6:21 AM INDICATION: Constipation, evaluate for obstruction COMPARISON: CT abdomen and pelvis on 07/31/2017 FINDINGS: LINES/TUBES: None BOWEL PATTERN: No evidence for obstruction. SOFT TISSUES: Vascular stent noted in the distribution of the left common iliac vein. Surgical clips in the anterior abdominal wall compatible with prior hernia repair. Cholecystectomy clips are present LUNG BASES: Lung bases are clear BONES: Degenerative changes of the thoracolumbar spine and bilateral SI joints IMPRESSION: No evidence of obstruction. Signed by: Dr. Momo Simmons M.D. on 08/11/2017 6:38 AM
[2017-08-11] MEDS: METOCLOPRAMIDE HCL 10 MG TAB PO SCH ×4 (07:30→21:32)
[2017-08-11] MEDS: INSULIN REGULAR, HUMAN 100 UNIT/1 ML 3ML VIAL SQ SCH ×4 (07:30→21:39)
[2017-08-11 07:53] LABS: ANION GAP 15.8 mmol/L (8-16); CALCIUM 9.3 mg/dL (8.4-10.2); CREATININE, SERUM 2.99 mg/dL (0.57-1.11); MAGNESIUM 2.2 MG/DL (1.3-2.1); PHOSPHORUS 4.9 MG/DL (2.3-4.7); POTASSIUM 4.8 mmol/L (3.5-5.1)
[2017-08-11 08:11] VITALS: BP 162/82
[2017-08-11] MEDS: LACTOBACILLUS ACIDOPHILUS CAPSULE PO SCH ×2 (09:00→16:30)
[2017-08-11] MEDS: FAMOTIDINE 20 MG TAB PO SCH ×2 (09:00→16:30)
[2017-08-11] MEDS: ASCORBIC ACID 500 MG TAB PO SCH ×2 (09:00→16:30)
[2017-08-11] MEDS: ZINC SULFATE 220 MG CAP PO SCH ×2 (09:00→16:30)
[2017-08-11] MEDS: CLOPIDOGREL BISULFATE 75 MG TAB PO SCH (09:00)
[2017-08-11] MEDS: HEPARIN SOD (PORCINE) 5,000 UNIT/ML VIAL SC SCH (09:00)
[2017-08-11] MEDS: NIFEDIPINE CR 30 MG TAB PO SCH (09:00)
[2017-08-11] MEDS: FOLIC ACID/CYANOCOB/PYRIDOXINE TAB PO SCH (09:00)
[2017-08-11] MEDS: POLYETHYLENE GLYCOL 3350 17 GM PACK PO SCH (09:00)
[2017-08-11] MEDS: [UNRECOGNIZED DRUG - OTHER] PO SCH (09:00)
[2017-08-11] MEDS: GABAPENTIN 300 MG CAP PO SCH ×2 (09:00→16:30)
[2017-08-11] MEDS: ASPIRIN 81 MG ENTERIC COATED PO SCH (09:00)
[2017-08-11] MEDS: DOCUSATE SODIUM 100 MG CAP PO SCH ×2 (09:00→16:30)
[2017-08-11] MEDS: LINAGLIPTIN PO SCH (09:00)
[2017-08-11] MEDS: CARVEDILOL 12.5 MG TAB PO SCH ×2 (09:00→16:30)
[2017-08-11] MEDS: BACLOFEN 10 MG TAB PO SCH ×2 (09:00→16:30)
[2017-08-11] MEDS: PANTOPRAZOLE 40 MG 10ML VIAL IV SCH (10:15)
--- NOTE | 2017-08-11 10:48 | Progress Note ---
DATE: August 11, 2017 REASON FOR CONSULTATION: CKD, stage 4. SUBJECTIVE: No acute events overnight. OBJECTIVE GENERAL: Lying comfortably in bed. VITAL SIGNS: Temperature 98.7, heart rate 64, respiratory rate 18, blood pressure 162/82, and O2 sat is 98%. LUNGS: Clear to auscultation bilaterally. HEART: Regular rate and rhythm. EXTREMITIES: No edema. ABDOMEN: Soft and nontender. LABS: Reviewed in electronic medical record. Hemoglobin of 10.2. BUN of 41, creatinine of 2.9 with a magnesium of 2.2 and phosphorus of 4.9. ASSESSMENT AND PLAN 1. Chronic kidney disease, stage 4: Currently, at baseline kidney function. Continue to avoid nonsteroidal anti-inflammatory drugs and contrast. 2. Accelerated hypertension: Continue Coreg and clonidine. 3. Nausea: Has been having persistent nausea that gets worse with lying down and improves with sitting up. Will start her on Protonix 40 mg daily. 4. Patient is refusing Reglan as she feels that that has not made her improve initially. Job#: [id number] NM
[2017-08-11 12:14] VITALS: BP 151/78
[2017-08-11] MEDS: ONDANSETRON HCL INJ 2 MG/ML VIAL IV PRN (15:25)
[2017-08-11 16:16] VITALS: BP 135/65
--- NOTE | 2017-08-11 17:59 | Progress Note ---
DATE: August 11, 2017 PSYCHIATRIC PROGRESS NOTE Patient is found to be lying on the bed. She is alert, awake, and oriented to situation. She reports intermittent hallucination. She is not confused. She continued to complain of difficulty with word finding. She denies any hallucination at present. She denies any depression, anxiety. She denies any suicidal ideation. She is taking medication, denies any side effects. Spent about 15 minutes doing the mini mental status exam. The patient and discussed with family members regarding her results and current psychiatric issues. Patient scored 26/30 on August 11, 2017. The result is placed in patient's folder. Recommend further testing to rule out dementia. ASSESSMENT: Unspecified psychosis; rule out dementia. PLAN 1. Continue with Neurontin 300 mg p.o. b.i.d. 2. Continue with Risperdal 0.25 mg p.o. q.12 h. p.r.n. 3. Supportive therapy. Dictated by: BRITTANY Mckinney Job#: [id number]
[2017-08-11 20:00] VITALS: BP 147/84
--- NOTE | 2017-08-11 20:12 | Discharge Summary ---
BRAD MENDOZA (00:01) GRACIELA MARK MD Job#: [id number] CQ
[2017-08-11] MEDS: SIMVASTATIN 40 MG TAB PO SCH (21:32)
[2017-08-12] VITALS: BP 132/62
[2017-08-12 04:00] VITALS: BP 164/90
[2017-08-12 06:25] VITALS: BP 164/90
[2017-08-12 07:01] LABS: BASOPHILS % 0.1 % (0.0-1.0); EOSINOPHILS # (AUTO) 0.2 (0.0-0.4); EOSINOPHILS % 2.7 % (0.0-6.0); HEMATOCRIT 30.5 % (34.2-44.1); HEMOGLOBIN 10.2 g/dL (12.0-16.0); LYMPHOCYTES # (AUTO) 2.7 (1.0-3.2); LYMPHOCYTES % 33.6 % (18.0-39.1); MEAN CORPUSCULAR HEMOGLOBIN 28.7 pg (28-32); MEAN CORPUSCULAR HGB CONC 33.4 g/dL (31-35); MEAN CORPUSCULAR VOLUME 85.9 fL (81-99); MONOCYTES # (AUTO) 0.5 (0.2-0.8); NEUTROPHILS # (AUTO) 4.7 (2.1-6.9); NEUTROPHILS % 57.4 % (38.7-80.0); PLATELET COUNT 194 x10e3/uL (140-360); RED BLOOD COUNT 3.55 x10e6/uL (3.6-5.1); RED CELL DISTRIBUTION WIDTH 13.8 % (11.7-14.4)
[2017-08-12] MEDS: METOCLOPRAMIDE HCL 10 MG TAB PO SCH ×3 (07:30→16:37)
[2017-08-12] MEDS: FAMOTIDINE 20 MG TAB PO SCH ×2 (07:30→16:37)
[2017-08-12] MEDS: INSULIN REGULAR, HUMAN 100 UNIT/1 ML 3ML VIAL SQ SCH ×3 (07:30→16:41)
[2017-08-12 07:34] LABS: ANION GAP 13.1 mmol/L (8-16); CALCIUM 8.5 mg/dL (8.4-10.2); CREATININE, SERUM 3.12 mg/dL (0.57-1.11); MAGNESIUM 1.9 MG/DL (1.3-2.1); PHOSPHORUS 4.8 MG/DL (2.3-4.7); POTASSIUM 5.1 mmol/L (3.5-5.1)
[2017-08-12 08:32] VITALS: BP 156/82
[2017-08-12] MEDS: LINAGLIPTIN PO SCH (09:00)
[2017-08-12] MEDS: CLOPIDOGREL BISULFATE 75 MG TAB PO SCH (09:00)
[2017-08-12] MEDS: ASCORBIC ACID 500 MG TAB PO SCH ×2 (09:00→16:41)
[2017-08-12] MEDS: LACTOBACILLUS ACIDOPHILUS CAPSULE PO SCH ×2 (09:00→16:41)
[2017-08-12] MEDS: ASPIRIN 81 MG ENTERIC COATED PO SCH (09:00)
[2017-08-12] MEDS: GABAPENTIN 300 MG CAP PO SCH ×2 (09:00→16:41)
[2017-08-12] MEDS: BACLOFEN 10 MG TAB PO SCH ×2 (09:00→16:41)
[2017-08-12] MEDS: POLYETHYLENE GLYCOL 3350 17 GM PACK PO SCH (09:00)
[2017-08-12] MEDS: NIFEDIPINE CR 30 MG TAB PO SCH (09:00)
[2017-08-12] MEDS: [UNRECOGNIZED DRUG - OTHER] PO SCH (09:00)
[2017-08-12] MEDS: FOLIC ACID/CYANOCOB/PYRIDOXINE TAB PO SCH (09:00)
[2017-08-12] MEDS: ZINC SULFATE 220 MG CAP PO SCH ×2 (09:00→16:41)
[2017-08-12] MEDS: CARVEDILOL 12.5 MG TAB PO SCH ×2 (09:00→16:41)
[2017-08-12] MEDS: PANTOPRAZOLE 40 MG 10ML VIAL IV SCH (09:00)
[2017-08-12] MEDS: DOCUSATE SODIUM 100 MG CAP PO SCH ×2 (10:24→16:41)
[2017-08-12 11:56] VITALS: BP 157/58
--- NOTE | 2017-08-12 13:00 | Progress Note ---
DATE: August 12, 2017 REASON FOR CONSULTATION: CKD, stage 4. SUBJECTIVE: No acute events overnight. Eager to go home today. OBJECTIVE GENERAL: Lying comfortably in bed, in no acute distress. VITAL SIGNS: Temperature 97, heart rate 64, respiratory rate 16, blood pressure 156/82, and O2 sat is 99% on room air. LUNGS: Clear to auscultation bilaterally. No wheezing or rales. HEART: Regular rate and rhythm. ABDOMEN: Soft and nontender. EXTREMITIES: No edema. LABS: Reviewed in electronic medical record; significant for BUN of 43 mg/dL and creatinine of 3.1 mg/dL with a phosphorus of 4.8. IMAGING: Reviewed in electronic medical record; abdominal x-ray performed yesterday showed no evidence of obstruction. ASSESSMENT AND PLAN 1. Chronic kidney disease, stage 4: Continue to avoid nonsteroidal anti-inflammatory drugs and contrast. 2. Accelerated hypertension: We will continue Coreg as outpatient. 1. Okay to be discharged from nephrology standpoint. We will have her see us in clinic with pre-clinic labs next week. Job#: [id number] VAS
[2017-08-12] MEDS ORDERED: BACLOFEN10 MG PO (13:49)
[2017-08-12] MEDS ORDERED: PROCARDIA XL30 MG PO (13:49)
[2017-08-12] MEDS ORDERED: ZOFRAN ODT4 MG PO (13:54)
[2017-08-12 16:00] VITALS: BP 153/92
--- NOTE | 2017-08-12 21:19 | Discharge Summary ---
ADMISSION DIAGNOSES 1. Chest pain. 2. Diabetes type 2. 3. Hypertensive emergency. 4. Chronic kidney disease, 4. DISCHARGE DIAGNOSES 1. Chest pain. 2. Diabetes type 2. 3. Hypertensive emergency. 4. Chronic kidney disease, 4. 5. Ruled out stroke. 6. Hyperkalemia. 7. Anemia. 8. Ruled out myocardial infarction. HISTORY: The patient has a history of type 2 diabetes, hypertension, diabetic nephropathy/CKD4, CAD, status post bypass graft in 2007, status post stent placement in 2007 and 2008. HOSPITAL COURSE: A 72-year-old female who presented with chest discomfort in the substernal region without any radiation. She also complains of shortness of breath and dizziness. Cardiology was consulted. She had a stress test about 4 years ago which was negative. According to the family, a week later she had a heart attack, started on Plavix and beta pramod. Stress test done by cardiology this hospitalization was negative. Discussed going home with PT with patient. She agreed to the plan. Wound care also saw the patient for wound on her left foot. Debridement was done to the left great toe on 06/02. Hydrogel, 4 x 4 and tape applied to the area. The patient had a bone scan to rule out osteomyelitis. It was negative. Prior to discharge, the patient became lethargic and very hard to awake. She would awaken with a sternal rub by the nurse and would wake up and tell the nurse to leave her alone, that that hurt, and then she would go back to sleep. So, a CAT scan was done, which was negative. Family was at bedside at this time. I talked to the family and told them that the CAT scan was negative, but if she was still having lethargy and confusion that we would do an MRI and get neurology on board. The MRI was done and neurology was consulted. Neurology also agreed that the patient did not have a stroke. The ammonia level was normal. Electrolytes normal. The patient woke up later in the evening just fine with no neurological deficit. So I informed the family that the intention was to go home since the patient was back to baseline and all of the scans and labs were negative. They agreed. On the night of the discharge, one of the sons was uncomfortable with the discharge and started to fight the discharge. I explained to them as well as case management explained to the family that the discharge was appropriate for home because she was pretty much independent. The family told me that she lives in a trailer in her son's backyard. He visits her at least once or twice a day. The patient also drives down the street less than a mile to other family's house, which I explained to them was a picture of independence. When working with physical therapy, they described her as moderate independent. She had a cane and a walker at home already, so I set up PT and wound care. Family was not happy with this, so they wanted to appeal the discharge. The initial discharge was 08/05/17. The patient and family appealed the discharge even after explaining to them why the patient did not need to be in the hospital. They then decided that they wanted her to go into [facility] facility. I explained to them that physical therapy was not a reason to go into [facility] and that it would probably be denied by insurance, and if it was denied by insurance that they would possibly be responsible for the remainder of hospital stay. They agreed and said they wanted to try anyway. According to the patient's insurance the appeal was approved, but the [facility] facility was denied. So, on 08/12/17, 6 days after the initial discharge, the patient was sent home with home health and PT as initially ordered. The family agreed to plan and are now comfortable with the plan. The patient was fully weaned off of Baclofen and lorazepam and started on Plavix, Nephro-Nick and ascorbic acid for her wound. Prior to discharge, the patient complained of abdominal pain and squirting stool. A KUB was done which was negative. The patient will follow up with primary care physician in 2 weeks. Prior to discharge, the patient was also seen by psychiatry because she was hallucinating. She was seeing her . On the mini-mental exam, the patient scored a 26 out of 30. Discussed the findings with the patient and the family. They agreed to keep an eye on the patient over the next 2 weeks prior to following up with primary care physician to decide if the patient needs medication and discussed it with the primary care physician if she does not improve. Dictated by: Sunita García NP TONG CLAYTON MD :09 Job#: [id number] BELLE
== END 2017-08-12 18:00 | disposition home health service (06) | DRG 264 ==
LOC: ER 14:34 → ERHOLD 20:36 → IMCU 21:41 → OBSVTOIN 08-02 12:55 → MED/SURG3 08-02 14:39
PROVIDERS: ADMIT Internal Medicine; ATTEND Internal Medicine
PROC: 0JBR0ZZ Excision of Left Foot Subcutaneous Tissue and Fascia, Open Approach (ICD-10-PCS; principal; 2017-08-03)
DX: I16.1 Hypertensive emergency (principal); G93.49 Other encephalopathy; E87.2 Acidosis; N18.4 Chronic kidney disease, stage 4 (severe); E11.22 Type 2 diabetes mellitus with diabetic chronic kidney disease; Z95.5 Presence of coronary angioplasty implant and graft; E11.42 Type 2 diabetes mellitus with diabetic polyneuropathy; I12.9 Hypertensive chronic kidney disease with stage 1 through stage 4 chronic kidney disease, or unspecified chronic kidney disease; E87.5 Hyperkalemia; I25.10 Atherosclerotic heart disease of native coronary artery without angina pectoris; E11.621 Type 2 diabetes mellitus with foot ulcer; I25.2 Old myocardial infarction; L97.529 Non-pressure chronic ulcer of other part of left foot with unspecified severity; E83.51 Hypocalcemia; Z95.1 Presence of aortocoronary bypass graft; F29 Unspecified psychosis not due to a substance or known physiological condition; R07.89 Other chest pain; Z79.4 Long term (current) use of insulin; F03.90 Unspecified dementia, unspecified severity, without behavioral disturbance, psychotic disturbance, mood disturbance, and anxiety; E11.610 Type 2 diabetes mellitus with diabetic neuropathic arthropathy
CPT/HCPCS: 36415; 70450; 70551; 71046; 74018; 74176; 78315; 78452; 80048; 80053; 80061; 81001; 82140; 82150; 82550; 82553; 82948; 83036; 83690; 83735; 83880; 84100; 84484; 85025; 85610; 85730; 87086; 87400; 93005; 93017; 96372; 97139; 99284; A9502; A9503; G0378; J1644; J2270; J2405; J2550

== ENCOUNTER 2017-09-15 12:09 | Outpatient (RCR) | payer MEDICARE ==
[~2017-09-15 12:09] MED LIST changes: +ASCORBIC ACID500 MG PO; +ASPIR 8181 MG PO; +ATORVASTATIN CA20 MG PO; +BACLOFEN10 MG PO; +CARDENE PO; +CARVEDILOL12.5 MG PO; +CIPRO500 MG PO; +Calcium Carbonate PO; +DOCUSATE SODIU100 MG PO; +FENOFIBRATE145 MG PO; +FUROSEMIDE40 MG PO; +GABAPENTIN300 MG PO; +HUMULIN-R100 UNITS/ SC; +LEVAQUIN250 MG PO; +LEXAPRO10 MG PO; -LIDOCAINE VISC 2% SOLN 15 ML UDC ONE; +LISINOPRIL10 MG PO; +LORAZEPAM0.5 MG PO; +MAGNESIUM OXID400 MG PO; +METOCLOPRAMIDE10 MG PO; +NEPHRO-VITE TABL1 EA PO; +PINDOLOL5 MG PO; +PLAVIX75 MG PO; +PROCARDIA XL30 MG PO; +TRADJENTA5 MG PO; +ZINC SULFATE220 M1 PO; +ZOCOR40 MG PO; +ZOFRAN ODT4 MG PO
== END 2017-09-18 ==
LOC: WCC 12:09
PROVIDERS: ATTEND Podiatrist Foot & Ankle Surgery
DX: E11.621 Type 2 diabetes mellitus with foot ulcer (principal); E11.36 Type 2 diabetes mellitus with diabetic cataract; M86.18 Other acute osteomyelitis, other site; L97.522 Non-pressure chronic ulcer of other part of left foot with fat layer exposed; D63.1 Anemia in chronic kidney disease; I10 Essential (primary) hypertension; N18.4 Chronic kidney disease, stage 4 (severe); Z01.810 Encounter for preprocedural cardiovascular examination; Z01.811 Encounter for preprocedural respiratory examination; Z85.42 Personal history of malignant neoplasm of other parts of uterus
CPT/HCPCS: 36415; 82948; 87071; 87075; 87186; 87205

== ENCOUNTER 2017-10-13 13:30 | Outpatient (RCR) | payer MEDICARE | END 2017-10-18 | LOC: WCC 13:30 | PROVIDERS: ATTEND Podiatrist Foot & Ankle Surgery | DX: E11.621 Type 2 diabetes mellitus with foot ulcer (principal); E11.36 Type 2 diabetes mellitus with diabetic cataract; M86.18 Other acute osteomyelitis, other site; L97.522 Non-pressure chronic ulcer of other part of left foot with fat layer exposed; N18.4 Chronic kidney disease, stage 4 (severe); I10 Essential (primary) hypertension; D63.1 Anemia in chronic kidney disease; B96.89 Other specified bacterial agents as the cause of diseases classified elsewhere; B95.1 Streptococcus, group B, as the cause of diseases classified elsewhere; Z01.810 Encounter for preprocedural cardiovascular examination; Z01.811 Encounter for preprocedural respiratory examination; Z85.42 Personal history of malignant neoplasm of other parts of uterus | CPT/HCPCS: 15275; 29445; 99213; Q4131 ==

== ENCOUNTER 2017-10-27 10:58 | Outpatient (RCR) | payer MEDICARE ==
[2017-10-27] MEDS ORDERED: MUPIROCIN 2% OINT 22 GM TUBE ONE (16:44)
[2017-11-09] MEDS ORDERED: NOVOLOG MI100 UNIT/1 SC ×2 (11:36)
[2017-11-09] MEDS ORDERED: ATORVASTATIN CA40 MG PO (11:36)
[2017-11-09] MEDS ORDERED: ISOSORBIDE MONO60 MG PO (11:36)
[2017-11-09] MEDS ORDERED: NAMENDA10 MG PO (11:36)
[2017-11-09] MEDS ORDERED: ARICEPT5 MG PO (11:36)
[2017-11-09] MEDS ORDERED: ASPIRIN325 MG PO (11:36)
[2017-11-09] MEDS ORDERED: PREDNISONE5 MG PO (11:38)
[2017-11-11] MEDS ORDERED: FUROSEMIDE40 MG PO (13:26)
== END 2017-11-18 ==
LOC: WCC 10:58
PROVIDERS: ATTEND Podiatrist Foot & Ankle Surgery
DX: E11.36 Type 2 diabetes mellitus with diabetic cataract (principal); E11.621 Type 2 diabetes mellitus with foot ulcer; M86.18 Other acute osteomyelitis, other site; L97.522 Non-pressure chronic ulcer of other part of left foot with fat layer exposed; S90.822A Blister (nonthermal), left foot, initial encounter; I10 Essential (primary) hypertension; N18.4 Chronic kidney disease, stage 4 (severe); D63.1 Anemia in chronic kidney disease; Z01.810 Encounter for preprocedural cardiovascular examination; Z01.811 Encounter for preprocedural respiratory examination; Z85.42 Personal history of malignant neoplasm of other parts of uterus
CPT/HCPCS: 15275; 29445; 99212; Q4131

== ENCOUNTER 2017-11-09 04:26 | Inpatient (IN) | payer MEDICARE ==
[~2017-11-09] VITALS: Ht 175.3 cm; Wt 122.5 kg
--- OUTSIDE RECORDS SUMMARY | 2017-11-09 04:29 | XMS REPORT | Clinical Summary ---
Author Author [facility] Organization [facility] Address Unknown Phone Unavailable Care Team Providers Care Renewal Specialist Name Role Phone Arsen Baeza MD PCP [...] 2 (two) times a day. KWIKPEN SUBQ) metoclopramide (REGLAN) TK 1 T PO QD [...] ued NAPROXEN Take 1 tablet by mouth 04/03/20 Discontin SOD/DIPHENHYDRAMINE nightly as needed. 17 ued [...] (two) times a day. 18 18 ued pindolol (VISKEN) 5 MG Take 1 tablet (5 mg 60 tablet 0 07/24/1911/07 tablet total) by mouth 2 (two) 18 18 times a day for 30 days. niCARDipine (CARDENE) 20 Take 1 capsule (20 mg 90 capsule 0 07/24/19 08/24/19 MG capsule total) by mouth every 8 18 18 (eight) hours for 30 days. furosemide (LASIX) 20 mg Take 1 tablet (20 mg 30 tablet 0 07/25/19 08/25/19 tablet total) by mouth daily for 18 18 30 days. fenofibrate (LOFIBRA) 160 Take 1 tablet (160 mg 30 tablet 0 07/25/19 08/25/19 MG tablet total) by mouth daily for 18 18 30 days. Active Problems Problem Noted Date Episodic lightheadedness 07/22/2017 Urinary tract infection in female 03/30/2017 UTI (urinary tract infection) 03/30/2017 Dizziness, nonspecific 03/17/2017 Encounters Date Type Specialty Care Team Description 07/28/2017 Patient Quality Nayeli Hayes, PharmD Outreach 07/22/2017 Emergency General Internal Medicine Andreas Arboleda MD Episodic lightheadedness - Emilee Canas MD (Primary Dx); 07/24/2017 Secondary hypertension; Renal insufficiency; Dizziness, nonspecific 03/30/2017 [facility] General Internal Medicine Andreas Herrera MD Urinary tract infection - Encounter WatsonangelCarolyn bonilla in female (Primary Dx); 04/03/2017 MD Priscilla Sepsis, due to unspecified organism; Weakness; Malaise and fatigue; Dizziness, nonspecific 03/17/2017 Emergency General Internal Medicine Andreas Arboleda MD Dizziness, nonspecific - Jo Ann Smith MD (Primary Dx); 03/19/2017 Gait abnormality 03/17/2017 Procedure Pass General Internal Medicine 03/11/2017 Emergency Emergency Medicine Andreas Herrera MD 12/16/2016 Office Visit Cardiovascular Lincoln Salamanca MD Bilateral lower extremity edema (Primary Dx); Toe ulcer, left, with unspecified severity 12/09/2016 Office Visit Cardiovascular Lincoln Salamanca MD Peripheral vascular disease (Primary Dx) after 11/08/2016 Immunizations Name Dates Previously Given Next Due [...] Taken Blood Pressure 128/62 07/24/2017 10:41 AM DEVELOPER SUPPORT ENGINEER Pulse 72 07/24/2017 10:41 AM DEVELOPER SUPPORT ENGINEER Temperature 36.3 C (97.4 F) 07/24/2017 7:51 AM DEVELOPER SUPPORT ENGINEER Respiratory Rate 17 07/24/2017 7:51 AM DEVELOPER SUPPORT ENGINEER Oxygen Saturation 96% 07/24/2017 7:51 AM DEVELOPER SUPPORT ENGINEER Inhaled Oxygen - - Concentration Weight 94.8 kg (208 lb 15.9 oz) 07/23/2017 4:32 AM DEVELOPER SUPPORT ENGINEER Height 160 cm (5' 2.99") 07/23/2017 4:32 AM DEVELOPER SUPPORT ENGINEER Body Mass Index 37.03 07/23/2017 4:32 AM DEVELOPER SUPPORT ENGINEER Plan of Treatment Health Maintenance Due Date Last Done Comments COLON CANCER SCREENING 1997 SHINGRIX VACCINE (#1) 1997 ZOSTER VACCINE 2007 PNEUMOCOCCAL 2012 POLYSACCHARIDE VACCINE AGE 65 AND OVER INFLUENZA VACCINE 01/19/2018 03/18/2017 BREAST CANCER SCREENING 06/18/2018 06/18/2016 PNEUMOCOCCAL-13 Completed 03/18/2017 Implants Implanted Type Area Food Aide Device Expiration Model / Identifier Date Serial / Lot Ports Ports Procedures Procedure Name Priority Date/Time Associated Diagnosis Comments ECHOCARDIOGRAM 2D Routine 07/23/2017 Results for this COMPLETE W MMODE SPECTRAL 4:49 PM DEVELOPER SUPPORT ENGINEER procedure are in the COLOR DOPPLER (58003) results section. PA CRITICAL CARE, E/M Routine 03/30/2017 Results for this 30-74 MINUTES 10:03 AM CDT procedure are in the results section. ECHOCARDIOGRAM 2D Routine 03/18/2017 Results for this COMPLETE W MMODE SPECTRAL 11:15 AM CDT procedure are in the COLOR DOPPLER ([id number]) results section. after 11/08/2016 Results * Estimated GFR (07/24/2017 9:07 AM) [...] DEPARTMENT OF PATHOLOGY AND GENOMIC MEDICINE [address] [place] [address] * CBC with platelet and differential (07/24/2017 [...] DEPARTMENT OF PATHOLOGY AND GENOMIC MEDICINE [address] [place] [address] * Basic metabolic panel (07/24/2017 9:07 AM) Only the most recent of 7 results within the time period is included. [...] PATHOLOGY AND GENOMIC MEDICINE [address] [place] [address] * POC glucose (07/24/2017 6:16 AM) Only the most recent of 33 results within the time period is included. Component Value Ref Range POC glucose 272 (H) 65 - 100 mg/dL Comment: Meter ID: [id number] Multimedia Assistant: Shwetha Prince Specimen Performing Laboratory [facility] [address] [address] * Echocardiogram complete w contrast and 3D [...] R1 5.56 Specimen Performing Laboratory [facility] [address] [facility] [place] [address] Narrative The left ventricle chamber size is [...] ED Physician in the absence of a commercial decorator: yes Previous ECG: Previous ECG:Unavailable Interpretation: Interpretation: [...] Site: Clean catch Specimen Performing Laboratory Urine [facility] DEPARTMENT OF PATHOLOGY AND GENOMIC MEDICINE [address] [place] [id number] * Urine culture (07/23/2017 1:40 PM) Only the most recent of 3 results within the time period is included. Component Value Ref Range Urine culture isolate Streptococcus group B 10-1 cfu/ml (A) Comment: Specimen Information Specimen Source: Urine Specimen Site: Clean catch Urine culture isolate Mixed Gram positive faina 10-3 cfu/ml (A) Specimen Performing Laboratory Urine [facility] DEPARTMENT OF PATHOLOGY AND GENOMIC MEDICINE [address] [place] [address] * Urinalysis screen and microscopy, with reflex [...] PATHOLOGY AND GENOMIC MEDICINE [address] [place] [address] * Prothrombin time with INR (07/23/2017 4:26 AM) Only the most recent of 3 results [...] PATHOLOGY AND GENOMIC MEDICINE [address] [place] [address] * Hemoglobin A1c (07/23/2017 4:26 AM) Only the most recent of 3 results [...] PATHOLOGY AND GENOMIC MEDICINE [address] [place] [place] [address] * Lipid panel (07/23/2017 4:26 AM) Component Value Ref Range Cholesterol 247 (H) [...] OF PATHOLOGY AND GENOMIC MEDICINE [address] [place] [address] * Troponin (07/23/2017 12:22 AM) Only the most recent of 7 results within the time period is included. [...] OF PATHOLOGY AND GENOMIC MEDICINE [address] [place] [address] * CT Head Wo Contrast (07/22/2017 9:46 PM) Only the most recent of 2 results within the time period is included. Specimen Performing Laboratory [facility] [address] [place] [address] Narrative EXAMINATION: CT HEAD WO CONTRAST CLINICAL [...] detailed above with no acute intracranial abnormality. [facility]-[id number] Procedure Note Interface, Radiology Results Incoming - 07/22/2017 9:56 PM DEVELOPER SUPPORT ENGINEER EXAMINATION: CT HEAD WO CONTRAST CLINICAL HISTORY: [...] detailed above with no acute intracranial abnormality. [facility]-[id number] * XR Chest 2 Vw (07/22/2017 9:25 PM) Only the most recent of 2 results within the time period is included. Specimen Performing Laboratory [facility] [address] [place] [address] Narrative EXAMINATION:XR CHEST 2 VW CLINICAL HISTORY:dizziness COMPARISON:03/30/2017 IMPRESSION: Right chest port is again seen with tip projecting over superior vena cava. No consolidations, effusions, or pneumothorax. Cardiomediastinal silhouette is within normal limits. No acute osseous abnormalities. Mild degenerative change of the lower thoracic spine. [facility]-[id number] Procedure Note Interface, Radiology Results Incoming - 07/22/2017 9:35 PM DEVELOPER SUPPORT ENGINEER EXAMINATION: XR CHEST 2 VW CLINICAL HISTORY: dizziness COMPARISON: 03/30/2017 IMPRESSION: Right chest port is again seen with tip projecting over superior vena cava. No consolidations, effusions, or pneumothorax. Cardiomediastinal silhouette is within normal limits. No acute osseous abnormalities. Mild degenerative change of the lower thoracic spine. [facility]-[id number] * B natriuretic peptide (07/22/2017 7:18 PM) Only the most recent of 3 results within the time period is included. Component Value Ref Range BNP 140 (H) 0 - 100 pg/mL Specimen Performing Laboratory Blood [facility] [address] [place] [address] * Comprehensive metabolic panel (07/22/2017 7:18 PM) [...] OF PATHOLOGY AND GENOMIC MEDICINE [address] [place] [address] * ECG 12 lead (07/22/2017 6:20 PM) Only the most recent of 4 results within the time period is included. Component Value Ref Range Ventricular rate 87 Atrial rate 87 PA interval 148 QRSD interval 82 QT interval 476 QTC interval 572 P axis 1 74 QRS axis 1 -76 T wave axis 43 EKG impression Normal sinus rhythm-Left axis deviation-Nonspecific ST and T wave abnormality- Specimen Performing Laboratory [facility] [address] [place] [address] * Hepatic function panel (04/02/2017 5:14 AM) [...] OF PATHOLOGY AND GENOMIC MEDICINE [address] [place] [address] * NM Lung Ventilation Perfusion (04/01/2017 9:38 PM) Specimen Performing Laboratory [facility] [address] [place] [address] Narrative PROCEDURE:NM LUNG VENTILATION PERFUSION INDICATION:Dyspnea. COMPARISON:Prior [...] probability for PE. 2.No change from 09/22/16. [id number] Procedure Note Interface, Radiology Results Incoming - [...] for PE. 2. No change from 09/22/16. [id number] * CT Chest Wo Contrast (04/01/2017 5:53 PM) Specimen Performing Laboratory [facility] [address] [place] [address] Narrative Study:CT CHEST WO CONTRAST History: pulmonary [...] pulmonary nodule in the right upper lobe. [facility]-[id number] Procedure Note [facility], Radiology Results Incoming - 04/01/2017 6:20 PM [...] pulmonary nodule in the right upper lobe. [facility]-[id number] * D-dimer (04/01/2017 11:22 AM) Component Value Ref Range D-dimer 0.94 (H) [...] PATHOLOGY AND GENOMIC MEDICINE [address] [place] [address] * Vancomycin level, trough (04/01/2017 11:22 AM) Component Value Ref Range Vancomycin, trough 18.4 10.0 - 20.0 ug/mL Comment: Therapeutic Ranges: Peak 30.0 - 40.0 ug/mL Trough 10.0 - 20.0 ug/mL Specimen Performing Laboratory Blood [facility] [address] [place] [address] * Consult to Sepsis Response Team (03/30/2017 1:44 PM) Only the most recent of 2 results within the time period is included. Sammie Rivas NP 03/30/20171:44 PM Sepsis Clinical Assessment Performed by: QUINTEN RIVAS Authorized by: QUINTEN RIVAS Sepsis Clinical Assessment General Assessment Information [...] mental status: WBC (k/uL) Date Value 03/30/2017 7.5 Weight-Based Fluid Bolus Calculation The recommended weight-based bolus volume: 2,721 mL (dosing weight) Please refer to the MAR for actual med/fluid administrations. * CRITICAL CARE (03/30/2017 10:03 AM) Narrative Andreas Herrera MD 03/30/2017 10:03 AM Critical Care Performed by: ANDREAS HERRERA Authorized by: ANDREAS HERRERA Critical care provider statement: Critical care time [...] Chest 1 Vw Portable (03/30/2017 9:05 AM) Specimen Performing Laboratory [facility] [address] [place] [address] Narrative EXAMINATION:XR CHEST 1 VW PORTABLE CLINICAL [...] The patient is status post median sternotomy. [facility]-[id number] Procedure Note Hm Interface, Radiology Results Incoming - 03/30/2017 9:10 [...] The patient is status post median sternotomy. [facility]-[id number] * Blood culture, aerobic & anaerobic (03/30/2017 8:09 AM) Only the most recent of 2 results within the time period is included. Component Value Ref Range Blood culture isolate No growth after 5 days of incubation. Comment: Specimen Information Specimen Source: Blood Specimen Site: Peripheral Arm Right Specimen Performing Laboratory Blood [facility] DEPARTMENT OF PATHOLOGY AND GENOMIC MEDICINE [address] [place] [address] * Partial thromboplastin time, activated (03/30/2017 8:09 [...] PATHOLOGY AND GENOMIC MEDICINE [address] [place] [address] * Lipase level (03/30/2017 8:09 AM) Component Value Ref Range Lipase 240 (H) 65 - 230 U/L Specimen Performing Laboratory Plasma specimen [facility] [address] [place] [address] * Lactic acid level (03/30/2017 8:09 AM) Component Value Ref Range Lactic acid 1.1 0.5 - 2.2 mmol/L Specimen Performing Laboratory Blood [facility]IC[facility] [address] [place] [address] * Venous blood gas (03/30/2017 8:09 AM) Component Value Ref Pediatric Psychologist [facility] Collection site RAC O2 therapy ROOM AIR [...] [place] [facility] [address] [place] [address] * Creatine kinase, total (CPK) (03/30/2017 8:09 AM) Component Value Ref Range Creatine kinase 65 61 - 224 U/L Specimen Performing Laboratory Plasma specimen [facility] [address] [place] [address] * Echocardiogram complete w contrast and 3D [...] R1 5.60 Specimen Performing Laboratory [facility] [address] [place] [address] Narrative The left ventricle chamber size is normal. Left Ventricular ejection fraction is 60 - 65%. Spectral Doppler shows impaired relaxation pattern of left ventricular diastolic filling. The anterior leaflet is moderate thickened and/or calcified. There is a mild prolapse of the mitral valve. Mild mitral valve stenosis. * MRI Brain Wo Contrast (03/17/2017 4:29 PM) [facility] [address] [place] [address] Narrative EXAMINATION:MRI BRAIN WO CONTRAST CLINICAL HISTORY: [...] of acute infarction, hemorrhage, or mass lesion. [id number] Procedure Note Hm Interface, Radiology Results Incoming [...] of acute infarction, hemorrhage, or mass lesion. [id number] * Beta hydroxybutyrate (03/11/2017 5:58 PM) Component Value Ref Range Beta hydroxybutyrate 0.10 0.02 - 0.27 mmol/L Specimen Performing Laboratory Blood [facility] [address] [place] [address] after 11/08/2016 Insurance Payer Benefit Subscriber ID Type Phone Address Plan / Group AETNA MEDICARE AETNA xxxxxxxx HMO MEDICARE HMO/PPO [facility] [place] [address]
--- OUTSIDE RECORDS SUMMARY | 2017-11-09 04:29 | XMS REPORT | Clinical Summary ---
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 Disp. Refills Start End Date Status Date gabapentin (NEURONTIN) Take 300 mg by mouth 2 Active 300 MG capsule (two) times daily. simvastatin (ZOCOR) 40 MG Take 40 mg by mouth Active tablet nightly. clopidogrel (PLAVIX) 75 Take 75 mg by mouth Active mg tablet daily. escitalopram oxalate Take 5 mg by mouth daily. Active (LEXAPRO) 5 MG tablet NIFEdipine (ADALAT CC) 60 Take 60 mg by mouth Active MG 24 hr tablet daily. lisinopril Take 20 mg by mouth Active (PRINIVIL,ZESTRIL) 20 MG daily. tablet linagliptin 5 mg Take 5 mg by mouth daily. Active TabIndications: type 2 diabetes mellitus ondansetron (ZOFRAN-ODT) Take 8 mg by mouth 2 Active 8 MG disintegrating (two) times daily as tablet needed for Nausea. furosemide (LASIX) 40 MG Take 40 mg by mouth Active tablet daily. carvedilol (COREG) 25 MG Take 25 mg by mouth 2 Active tablet (two) times daily with breakfast and dinner. isosorbide mononitrate Take 60 mg by mouth Active (IMDUR) 60 MG 24 hr daily. tablet LORazepam (ATIVAN) 0.5 MG Take 0.5 mg by mouth Active tablet every 6 (six) hours as needed for Anxiety. metoclopramide (REGLAN) 5 Take 5 mg by mouth 2 Active MG tablet (two) times daily. ranolazine (RANEXA) 500 Take 1 tablet (500 mg 180 tablet 3 04/08/20 04/08/20 Active MG 12 hr tablet total) by mouth 2 (two) 17 18 times daily. NIFEdipine (ADALAT CC) 30 Take 30 mg by mouth 04/08/20 Discontin MG 24 hr tablet daily. 17 ued Active Problems Problem Noted Date Chest pain 04/07/2017 CKD (chronic kidney disease) 04/07/2017 Encounters Date Type Specialty Care Team Description [facility]07[facility]2017 [facility], unspecified - Nathanael Pratt MD type (Primary Dx);Chronic 04/08/2017 Kristen Gaona kidney disease, MD Al[place] unspecified CKD stage 04/06/2017 Orders Only General Internal Medicine after 11/08/2016 Family History Medical History Relation Name Comments Diabetes Brother Heart disease Brother Cancer Father Diabetes Mother Heart disease Mother Stroke Mother Cancer Sister Diabetes Sister Heart disease Sister Hypertension Sister Relation Name Status Comments Brother Father Mother Sister Social History Tobacco Use Types Packs/Day Years Used Date Never Smoker Smokeless Tobacco: Never Used Alcohol Use Drinks/Week oz/Week Comments No Sex Assigned at Date Recorded Not on file Last Filed Vital Signs Vital Sign Reading Time Taken Blood Pressure 138/62 04/08/2017 5:05 PM CDT Pulse 70 04/08/2017 5:05 PM CDT Temperature 36.6 C (97.9 F) 04/08/2017 5:05 PM CDT Respiratory Rate 16 04/08/2017 5:05 PM CDT Oxygen Saturation 98% 04/08/2017 5:05 PM CDT Inhaled Oxygen - - Concentration Weight 92.4 kg (203 lb 11.3 oz) 04/07/2017 8:22 AM CDT Height 175.3 cm (5' 9") 04/06/2017 8:05 PM CDT Body Mass Index 30.08 04/07/2017 8:22 AM CDT Plan of Treatment Not on file Results * RHYTHM STRIP - SCAN (04/12/2017 10:00 AM) * Occult blood, stool (04/08/2017 6:45 PM) Component Value Ref Range Occult blood Positive (A) Negative Specimen Performing Laboratory Stool [facility] [address] [address] * POC-Glucose meter (04/08/2017 5:06 PM) Only the most recent of 4 results within the time period is included. Component Value Ref Range POC-Glucose Meter 275 (H)Comment: TESTED AT [address] 70 - 110 mg /dL [facility] [id number] Specimen Performing Laboratory Blood [address] [address] * STOOL PATH CHARGE (04/08/2017 4:50 PM) Component Value Ref Range Pathogen exam charged Done Specimen Performing Laboratory Stool - Per Rectum [address] [address] * Fecal leukocytes (04/08/2017 4:50 PM) Component Value Ref Range Fecal Leukocytes No fecal leukocytes seen No fecal leukocytes seen Specimen Performing Laboratory Stool - Per Rectum [address] [address] * Stool culture + Shiga toxin (04/08/2017 4:50 PM) Component Value Ref Range Result No Salmonella, Shigella or Campylobacter isolated Specimen Performing Laboratory Stool - Per Rectum [address] [address] Narrative Unable to test for Shiga Toxin 1 due to insufficient growth of specimen. Unable to test for Shiga Toxin 2 due to insufficient growth of specimen. Resubmit new specimen if clinically indicated. * NM myocardial perfusion PET (rest and stress) (04/08/2017 3:53 PM) Specimen Performing Laboratory [facility] Narrative FINAL REPORT PROCEDURE: Rest/Stress MYOCARDIAL PERFUSION PET with regadenoson\\XA9\\ CPT CODE: 25669 INDICATION: Chest pain HISTORY: Cardiac risk factors: [...] of MPHR) at tracer injection. BP was 114/50 mmHg at rest and 109/41 mmHg at [...] at stress is 63%. IMPRESSION: 1. Normal study.2. Appropriate pharmacologic stress.3. Normal myocardial perfusion.4. Normal resting LV function. No deterioration of function is noted with pharmacologic stress.5. Normal extracardiac tracer distribution.6. No previous [facility] study for comparison. NONINVASIVE RISK STRATIFICATION: The above findings are considered low risk (<1% annual or IN) based on the following criterion: - Normal or small myocardial perfusion defect at rest or with stress encumbering <5% of the myocardium - Normal stress or no change of limited resting wall motion abnormalities during stress (JACC. 2017;69(68):4962-48.) Signed: Arturo Reyes MD Report Verified Date/Time:04/08/2017 17:02:21 Reading Location: [address] Reading Room Procedure Note Interface, External Ris In - 04/08/2017 5:04 PM CDT FINAL REPORT PROCEDURE: Rest/Stress MYOCARDIAL PERFUSION PET with regadenoson\\XA9\\ CPT CODE: 69228 INDICATION: Chest pain HISTORY: Cardiac risk factors: [...] of MPHR) at tracer injection. BP was 114/50 mmHg at rest and 109/41 mmHg at [...] Normal extracardiac tracer distribution. 6. No previous [facility] study for comparison. NONINVASIVE RISK STRATIFICATION: The above findings are considered low risk (<1% annual or IN) based on the following criterion: - Normal or small myocardial perfusion defect at rest or with stress encumbering <5% of the myocardium - Normal stress or no change of limited resting wall motion abnormalities during stress (JACC. 2017;69(17):8812-96.) Signed: Arturo Reyes MD Report Verified Date/Time: 04/08/2017 17:02:21 Reading Location: [address] Reading Room * Treadmill tolerance(Non-Nuclear Treadmill) (04/08/2017 3:32 PM) Specimen Performing Laboratory [facility] Narrative Protocol Name Regadenoson Time In Exercise Phase 00:01:00 Max. Systolic BP 109 mmHg Max Diastolic BP 41 mmHg Max Heart Rate 75 BPM Max Predicted Heart Rate 150 BPM Reason For Termination Predetermined end point Reason for Test Chest Pain Target HR Formula (220 - Age)*100% Arrhythmias atrial premature beats-isolated Resting ECG Normal sinus rhythm Nonspecific ST and T wave abnormality poor R-wave progression ST Changes Inferolateral ST DEPRESSION Overall Impression Indeterminate due to pharmacological stress Chest Pain none HR Response To Exercise BP Response To Exercise plavix COREG LISINOPRIL Imdur LASIX Zocor Confirmed by fellow Nomi Murphy ([id number]) on 04/08/2017 3:50:01 PM Confirmed by MD CRUZ JORGE [id number]) on 04/14/2017 12:07:33 PM Procedure Note Interface, External Ris In - 04/14/2017 12:07 PM CDT Protocol Name Regadenoson Time In Exercise Phase 00:01:00 Max. Systolic BP 109 mmHg Max Diastolic BP 41 mmHg Max Heart Rate 75 BPM Max Predicted Heart Rate 150 BPM Reason For Termination Predetermined end point Reason for Test Chest Pain Target HR Formula (220 - Age)*100% Arrhythmias atrial premature beats-isolated Resting ECG Normal sinus rhythm Nonspecific ST and T wave abnormality poor R-wave progression ST Changes Inferolateral ST DEPRESSION Overall Impression Indeterminate due to pharmacological stress Chest Pain none HR Response To Exercise BP Response To Exercise plavix COREG LISINOPRIL Imdur LASIX Zocor Confirmed by fellow Nomi Murphy ([id number]) on 04/08/2017 3:50:01 PM Confirmed by MD CRUZ JORGE ([id number]) on 04/14/2017 12:07:33 PM * CBC with platelet count + automated diff (04/08/2017 4:50 AM) Only the most recent of 2 results within the time period is included. Component Value Ref Range WBC 6.9 3.5 - 10.5 K/ L RBC 3.49 (L) 3.93 - 5.22 M/ L Hemoglobin 10.1 (L) 11.2 - 15.7 GM/DL Hematocrit 30.9 (L) 34.1 - 44.9 % MCV 88.5 79.4 - 94.8 fL MCH 28.9 25.6 - 32.2 pg MCHC 32.7 32.2 - 35.5 GM/DL RDW 13.6 11.7 - 14.4 % Platelets 207 150 - 450 K/CU MM MPV 9.6 9.4 - 12.3 fL nRBC 0 0 - 0 /100 WBC % Neutros 53 % % Lymphs 39 % % Monos 6 % % Eos 2 % % Baso 0 % # Neutros 3.65 1.56 - 6.13 K/ L # Lymphs 2.69 1.18 - 3.74 K/ L # Monos 0.39 (H) 0.24 - 0.36 K/ L # Eos 0.16 0.04 - 0.36 K/ L # Baso 0.01 0.01 - 0.08 K/ L Immature 0 0 - 1 % Granulocytes-Relative Specimen Performing Laboratory Blood - Arm, [place] [address] * Troponin I (04/08/2017 4:50 AM) Only the most recent of 4 results within the time period is included. Component Value Ref Range Troponin I 0.04 (H) 0.00 - 0.03 ng/mL Specimen Performing Laboratory Blood - [address], [place] [address] Narrative Troponin I (TnI) levels must be interpreted [...] failure, acidosis, acute neurological disease, and persistent tachyarrhythmia. * CBC with platelet count + automated diff (04/08/2017 4:50 AM) Only the most recent of 2 results within the time period is included. Specimen Performing Laboratory Blood Narrative The following orders were created for panel order CBC with platelet count + automated diff. Procedure Abnormality Status --------- - ------ CBC with platelet count ...[[id number]]AbnormalFinal result Please view results for these tests on the individual orders. * Magnesium (04/08/2017 4:50 AM) Only the most recent of 2 results within the time period is included. Component Value Ref Range Magnesium 1.6 1.6 - 2.6 mg/dL Specimen Performing Laboratory Blood - Arm, [facility] [address] [place] [address] * Basic Metabolic Panel (04/08/2017 4:50 AM) Only the most recent of 2 results within the time period is included. Component Value Ref Range Sodium 137 136 - 145 meq/L Potassium 4.4 3.5 - 5.1 meq/L Chloride 105 98 - 107 meq/L CO2 22 22 - 29 meq/L BUN 38 (H) 7 - 21 mg/dL Creatinine 2.64 (H) 0.57 - 1.25 mg/dL Glucose 173 (H) 70 - 105 mg/dL Calcium 8.6 8.4 - 10.2 mg/dL EGFR 18Comment: ESTIMATED GFR IS NOT ACCURATE mL/min/1.73 sq m CREATININE CLEARANCE IN PREDICTING GLOMERULAR FILTRATION RATE. ESTIMATED GFR IS NOT APPLICABLE FOR DIALYSIS PATIENTS. Specimen Performing Laboratory Blood - Arm, Right [id number] [place] [address] * US Renal with Doppler (04/08/2017 4:15 AM) Specimen Performing Laboratory [facility] FINAL REPORT U/S, RENAL WITH DOPPLER INDICATION: CRIRENO VASCULAR HTN COMPARISON: None TECHNIQUE: Real-time transabdominal renal ultrasound. Color and spectral Doppler examination of the renal vasculature. FINDINGS: Right kidney: Size: 11.7 x 4.2 x 5.4 cm. Parenchyma: Normal echogenicity. No cysts. No stones. Hydronephrosis: None. Left kidney: Size: 12.0 x 4.9 x 5.0 cm. Parenchyma: Normal echogenicity. No cysts. No stones. Hydronephrosis: None. Renal Vasculature: Doppler interrogation reveals preserved vascular flow in the main renal arteries and veins bilaterally. Urinary bladder: Unremarkable. Ureteric jets were demonstrated bilaterally. Color Doppler and spectral ultrasound imaging: Patent main renal artery and vein bilaterally. PSV ratio right: 2.7 PSV ratio left: 1.7 Acceleration times: Normal. Resistive Indices, Right: Upper: 0.74 Middle: 0.68 Lower: 0.66 Resistive Indices, Left: Upper: 0.68 Middle: 0.7 Lower: 0.72 IMPRESSION: Unremarkable sonographic examination of the kidneys. Normal renal vasculature. No sonographic evidence for renal artery stenosis. Signed: JR Kaur Robert MD Report Verified Date/Time:04/08/2017 05:15:25 Reading Location: [facility] C013Y CT Body Reading Room Procedure Note Interface, External Ris In - 04/08/2017 5:17 AM CDT FINAL REPORT U/S, RENAL WITH DOPPLER INDICATION: CRI MIKE VASCULAR HTN COMPARISON: None TECHNIQUE: Real-time transabdominal renal ultrasound. Color and spectral Doppler examination of the renal vasculature. FINDINGS: Right kidney: Size: 11.7 x 4.2 x 5.4 cm. Parenchyma: Normal echogenicity. No cysts. No stones. Hydronephrosis: None. Left kidney: Size: 12.0 x 4.9 x 5.0 cm. Parenchyma: Normal echogenicity. No cysts. No stones. Hydronephrosis: None. Renal Vasculature: Doppler interrogation reveals preserved vascular flow in the main renal arteries and veins bilaterally. Urinary bladder: Unremarkable. Ureteric jets were demonstrated bilaterally. Color Doppler and spectral ultrasound imaging: Patent main renal artery and vein bilaterally. PSV ratio right: 2.7 PSV ratio left: 1.7 Acceleration times: Normal. Resistive Indices, Right: Upper: 0.74 Middle: 0.68 Lower: 0.66 Resistive Indices, Left: Upper: 0.68 Middle: 0.7 Lower: 0.72 IMPRESSION: Unremarkable sonographic examination of the kidneys. Normal renal vasculature. No sonographic evidence for renal artery stenosis. Signed: JR Kaur Robert MD Report Verified Date/Time: 04/08/2017 05:15:25 Reading Location: [facility] [address] Body Reading Room * Creatine Kinase (CK), Total and MB (04/07/2017 6:31 PM) Only the most recent of 3 results within the time period is included. Component Value Ref Range Total CK 44 29 - 200 U/L CK-MB 1.0 0.0 - 6.6 ng/mL MB Relative Index 2.3 % Specimen Performing Laboratory Blood [facility] [address] [place] [address] Narrative CK-MB Reference Range: <6.7Normal 6.7-10.0Borderline >10.0 Abnormal * ECHOCARDIOGRAM REPORT - SCAN (04/07/2017 6:20 PM) * PERIPHERAL VASCULAR REPORT - SCAN (04/07/2017 12:52 PM) * Hemoglobin A1c (04/07/2017 12:12 PM) Component Value Ref Range Hemoglobin A1C 10.1 (H) 4.3 - 6.1 % Specimen Performing Laboratory [place] [address] * 2D Echo W/Doppler(CW/PW/Color) (04/07/2017 12:08 PM) Component Value Ref Range Ejection Fraction Specimen Performing Laboratory [facility] ECHO HEARTLAB MKCK[facility]ON [facility] Narrative Transthoracic Echocardiography Report (TTE) Demographics Patient Maia Sterling of Study04/07/2017 GHAZALA Gender Female Visit [id number] Race Unknown [id number] Number Date of 1945 Referring Physician Age 72 year(s) Privacy Specialist Interpreting [facility] Needs to be Pre Physician Read Yajaira Portillo MD FellowEleazar GRULLON Procedure Type of Study TTE procedure:2DECHO W DOPPLER(CW/PW/COLOR) (Routine) Indications:Acute Chest Pain/ Suspected CAD. Clinical History A FIB CANCER CHF DIABETIC HLD HTN CABG X4 CORONARY STENTS X2 Contrast Medium: Definity. Height: 69 inches Weight: 92.08 kg (203 lbs) BSA: 2.08 m^2 BMI: 29.98 kg/m^2 HR: 80 bpm BP: 149/69 mmHg Summary 1. All of the LV segments contract normally. Estimated LVEF by qualitative assessment is normal (55-60% 2. The right ventricular chamber size and systolic function are within normal limits. 3. Grade 1 diastolic dysfunction (impaired relaxation and low-normal LA pressure) 4. Aortic sclerosis without significant stenosis by Doppler. Previous Study No prior study Signature Findings Rhythm/BPRegular sinus rhythm during the exam. Left Ventricle LV septal thickness is normal (0.6-1.1cm). LV posterior wall thickness is normal (0.6-1.1cm) . All of the LV segments contract normally . Estimated LVEF by qualitative assessment is normal (55-60%) . Grade 1 diastolic dysfunction ( impaired relaxation and low-normal LA pressure). Septal motion is abnormal, likely related to prior cardiac surgery . The left ventricle is chamber size (by PSLAX dimension) is normal . Left AtriumLA size is normal . Right VentricleThe right ventricular chamber size and systolic function are within normal limits. Right Atrium RA size is normal. Aortic Valve Mild AoV cusp calcification. AoV calcification primarily involves the non- coronary cusp(s). There is trace aortic regurgitation. Mitral Valve Mild MV leaflet thickening. Mild MV leaflet calcification. Trace mitral regurgitation. Tricuspid ValveA trace of tricuspid regurgitation. Estimated peak systolic PA pressure is cannot be determined due to inadequate TR velocity signal . Pulmonic Valve Normal PV structure and function. AortaAortic root size (SInus of Valsalva diameter) is normal . The aortic sinotubular junction appears normal . Proximal ascending aorta size is normal . PericardiumAn echo lucent space is noted consistent with prominent pericardial fat pad. IVC/SVC/PA/PV/PleuralThe inferior vena cava is adequately visualized. The inferior vena cava size is normal . The estimated RA pressure by IVC dynamics 0-5mmHg . Chambers/Structures Left Atrium LA Volume: 72.94 ml LA Area: 22.13 cm^2 LA Vol. Index: 35 ml/m^2 Left Ventricle LVIDd: 4 cm LVEDV 2D:70.04 ml LV Septum Diastolic: 1.13 cm LV PW Diastolic: 1.13 cm LVOT Diameter: 2.19 cm Aorta Ao Root S of Denisse.: 3.15 cmAscending Aorta: 3.[address] Junction: 2.77 cm Shunts QS:104.76 ml Doppler/Quantitative Measurements Mitral Valve MV Peak E-Wave: 1.06 m/sMV Peak A-Wave: 1.38 m/s E/ A Ratio: 0.77 Mean Velocity: 0.82 m/s Peak Gradient: 4.46 mmHg Mean Gradient: 3.01 mmHg Area (continuity): 11.91 cm^2 MV VTI: 8.79 cm Tissue Doppler E' Lateral Velocity: 0.07 m/s E/E': 15.55 Aortic Valve Peak Velocity: 1.51 m/sMean Velocity: 1.13 m/s Peak Gradient: 9.13 mmHg Mean Gradient: 5.62 mmHg AV Area (continuity): 3.14 cm^2 AV VTI: 33.34 cm AV DVI: 0.83 LVOT Peak Velocity: 1.06 m/s Peak Gradient: 4.45 mmHg Mean Velocity: 0.78 m/s Mean Gradient: 2.73 mmHg LVOT Diameter: 2.19 cmLVOT VTI: 27.81 cm LVOT Area: 3.77 cm^2LVOT SV:104.7 ml LVOT CO: 8.38 l/min LVOT CI: 4.03 l/min/m^2 Procedure Note Interface, External Ris In - 04/07/2017 5:30 PM CDT Transthoracic Echocardiography Report (TTE) Demographics Patient Name LAYO BOBO Date of Study 04/07/2017 GHAZALA Gender Female Visit Number [id number] Race Unknown Room Number C622 Number Date of 1945 Referring Physician Age 72 year(s) Privacy Specialist Interpreting [facility] Needs to be Pre Physician Read Yajaira Portillo MD Fellow Eleazar GRULLON Procedure Type of Study TTE procedure:2DECHO W DOPPLER(CW/PW/COLOR) (Routine) Indications:Acute Chest Pain/ Suspected CAD. Clinical History A FIB CANCER CHF DIABETIC HLD HTN CABG X4 CORONARY STENTS X2 Contrast Medium: Definity. Height: 69 inches Weight: 92.08 kg (203 lbs) BSA: 2.08 m^2 BMI: 29.98 kg/m^2 HR: 80 bpm BP: 149/69 mmHg Summary 1. All of the LV segments contract normally. Estimated LVEF by qualitative assessment is normal (55-60% 2. The right ventricular chamber size and systolic function are within normal limits. 3. Grade 1 diastolic dysfunction (impaired relaxation and low-normal LA pressure) 4. Aortic sclerosis without significant stenosis by Doppler. Previous Study No prior study Signature Findings Rhythm/BP Regular sinus rhythm during the exam. Left Ventricle LV septal thickness is normal (0.6-1.1cm). LV posterior wall thickness is normal (0.6-1.1cm) . All of the LV segments contract normally . Estimated LVEF by qualitative assessment is normal (55-60%) . Grade 1 diastolic dysfunction (impaired relaxation and low-normal LA pressure). Septal motion is abnormal, likely related to prior cardiac surgery . The left ventricle is chamber size (by PSLAX dimension) is normal . Left Atrium LA size is normal . Right Ventricle The right ventricular chamber size and systolic function are within normal limits. Right Atrium RA size is normal. Aortic Valve Mild AoV cusp calcification. AoV calcification primarily involves the non- coronary cusp(s). There is trace aortic regurgitation. Mitral Valve Mild MV leaflet thickening. Mild MV leaflet calcification. Trace mitral regurgitation. Tricuspid Valve A trace of tricuspid regurgitation. Estimated peak systolic PA pressure is cannot be determined due to inadequate TR velocity signal . Pulmonic Valve Normal PV structure and function. Aorta Aortic root size (SInus of Valsalva diameter) is normal . The aortic sinotubular junction appears normal . Proximal ascending aorta size is normal . Pericardium An echo lucent space is noted consistent with prominent pericardial fat pad. IVC/SVC/PA/PV/Pleural The inferior vena cava is adequately visualized. The inferior vena cava size is normal . The estimated RA pressure by IVC dynamics 0-5mmHg . Chambers/Structures Left Atrium LA Volume: 72.94 ml LA Area: 22.13 cm^2 LA Vol. Index: 35 ml/m^2 Left Ventricle LVIDd: 4 cm LVEDV 2D:70.04 ml LV Septum Diastolic: 1.13 cm LV PW Diastolic: 1.13 cm LVOT Diameter: 2.19 cm Aorta Ao Root S of Denisse.: 3.15 cm Ascending Aorta: 3.[address] Junction: 2.77 cm Shunts QS:104.76 ml Doppler/Quantitative Measurements Mitral Valve MV Peak E-Wave: 1.06 m/s MV Peak A-Wave: 1.38 m/s E/A Ratio: 0.77 Mean Velocity: 0.82 m/s Peak Gradient: 4.46 mmHg Mean Gradient: 3.01 mmHg Area (continuity): 11.91 cm^2 MV VTI: 8.79 cm Tissue Doppler E' Lateral Velocity: 0.07 m/s E/E': 15.55 Aortic Valve Peak Velocity: 1.51 m/s Mean Velocity: 1.13 m/s Peak Gradient: 9.13 mmHg Mean Gradient: 5.62 mmHg AV Area (continuity): 3.14 cm^2 AV VTI: 33.34 cm AV DVI: 0.83 LVOT Peak Velocity: 1.06 m/s Peak Gradient: 4.45 mmHg Mean Velocity: 0.78 m/s Mean Gradient: 2.73 mmHg LVOT Diameter: 2.19 cm LVOT VTI: 27.81 cm LVOT Area: 3.77 cm^2 LVOT SV:104.7 ml LVOT CO: 8.38 l/min LVOT CI: 4.03 l/min/m^2 * Carotid doppler bilateral (04/07/2017 9:40 AM) Component Value Ref Range Ejection Fraction Specimen Performing Laboratory [facility] Imp[facility] Right Impression 1. The internal carotid artery is within normal limits. 2. The external carotid artery is within normal limits. 3. The common carotid artery is within normal limits. 4. The vertebral artery flow is antegrade and normal. 5. The subclavian artery is within normal limits where visualized. Left Impression 1. There is <50% diameter reduction (approximately 42% by 2-D measurement) in the internal carotid artery with an elevated peak velocity of 138 cm/sec and heterogeneous plaque. 2. The external carotid artery is within normal limits. 3. There is non-occluding plaque in the distal common carotid artery. 4. The vertebral artery flow is antegrade and normal. 5. The subclavian artery is within normal limits where visualized. Conclusions Summary Carotid duplex scanning and color flow imaging were performed bilaterally. The arteries were adequately visualized. The right internal carotid artery was normal with no plaque visualized. The left internal carotid artery had <50% hemodynamically insignificant stenosis (approximately 42% by 2-D measurement) with heterogeneous plaque. The vertebral artery flow was antegrade and normal bilaterally. The subclavian arteries were patent with normal flow bilaterally where visualized. Signature Velocities are measured in cm/s ; Diameters are measured in cm Carotid Right Measurements + +----+----+-----+ + + + !Location !PSV !EDV !Angle!%Stenosis 2D!%Stenosis Doppler! Tortuosity ! + +----+----+-----+ + + + !Prox CCA !111 !15.8!60 !! ! ! + +----+----+-----+ + + + !Dist CCA !87.4!17!60 !! ! ! + +----+----+-----+ + + + !Prox ICA !92.7!14.1!60 !! ! ! + +----+----+-----+ + + + !Dist ICA !75.4!21.2!60 !! ! ! + +----+----+-----+ + + + !Prox ECA !137 !14.1!60 !! ! ! + +----+----+-----+ + + + !Vertebral!58!14.1!60 !! ! ! + +----+----+-----+ + + + !Prox Subclavian!141 !0 !60 !! ! ! + +----+----+-----+ + + + - There is antegrade vertebral flow noted on the right side. - Additional Measurements:ICAPSV/CCAPSV 1.06.ICAEDV/CCAEDV 1.34. Carotid Left Measurements + +----+----+-----+ + + + !Location !PSV !EDV !Angle!%Stenosis 2D!%Stenosis Doppler! Tortuosity ! + +----+----+-----+ + + + !Prox CCA !125 !20.6!60 !! ! ! + +----+----+-----+ + + + !Dist CCA !89.6!21.2!60 !! ! ! + +----+----+-----+ + + + !Prox ICA !138 !21.6!60 !! ! ! + +----+----+-----+ + + + !Dist ICA !128 !33.4!60 !! ! ! + +----+----+-----+ + + + !Prox ECA !151 !14.7!60 !! ! ! + +----+----+-----+ + + + !Vertebral!70.9!17.6!60 !! ! ! + +----+----+-----+ + + + !Prox Subclavian!150 !0 !60 !! ! ! + +----+----+-----+ + + + - There is antegrade vertebral flow noted on the left side. - Additional Measurements:ICAPSV/CCAPSV 1.54.ICAEDV/CCAEDV 1.62. Narrative [facility] - Carotid Duplex Study Demographics Patient Name LAYO BOBO Date of Study 04/07/2017 GHAZALA [id number] Visit Number [id number] Female Accession Number [id number] of 1945 ReferringColby Saucedo MD Room Number C622 Physician SonographerSlcaritza Kim, Physician , [facility] Procedure Type of Study: Cerebral: Carotid, CAROTID DOPPLER, BILATERAL. Indications for Study:Syncope . Patient Status:Routine. Study Location:Vascular Lab. Technical Quality:Adequate visualization. Risk Factors History of Disease + +----+ + !Diagnosis !Date!Comments ! + +----+ + !History/Risk!!CAD W/CABG, HTN, HLD, H/O BREAST CANCER AND ! !Factors:!!MASTECTOMY, DM, CKD, CHF ! + +----+ + Procedure Note Interface, External Ris In - 04/07/2017 12:03 PM CDT [facility] - Carotid Duplex Study Demographics Patient Name LAYO BOBO Date of Study 04/07/2017 GHAZALA Age 72 Visit Number [id number] Gender Female Accession Number [id number] Date of 1945 Referring Colby Saucedo MD Room Number C622 Physician Privacy Specialist Manan Galan Interpreting Raz Kim, Physician , [facility] Procedure Type of Study: Cerebral: Carotid, CAROTID DOPPLER, BILATERAL. Indications for Study:Syncope . Patient Status:Routine. Study Location:Vascular Lab. Technical Quality:Adequate visualization. Risk Factors History of Disease + +----+ + !Diagnosis !Date!Comments ! + +----+ + !History/Risk ! !CAD W/CABG, HTN, HLD, H/O BREAST CANCER AND ! !Factors: ! !MASTECTOMY, DM, CKD, CHF ! + +----+ + Impressions Right Impression 1. The internal carotid artery is within normal limits. 2. The external carotid artery is within normal limits. 3. The common carotid artery is within normal limits. 4. The vertebral artery flow is antegrade and normal. 5. The subclavian artery is within normal limits where visualized. Left Impression 1. There is <50% diameter reduction (approximately 42% by 2-D measurement) in the internal carotid artery with an elevated peak velocity of 138 cm/sec and heterogeneous plaque. 2. The external carotid artery is within normal limits. 3. There is non-occluding plaque in the distal common carotid artery. 4. The vertebral artery flow is antegrade and normal. 5. The subclavian artery is within normal limits where visualized. Conclusions Summary Carotid duplex scanning and color flow imaging were performed bilaterally. The arteries were adequately visualized. The right internal carotid artery was normal with no plaque visualized. The left internal carotid artery had <50% hemodynamically insignificant stenosis (approximately 42% by 2-D measurement) with heterogeneous plaque. The vertebral artery flow was antegrade and normal bilaterally. The subclavian arteries were patent with normal flow bilaterally where visualized. Signature Velocities are measured in cm/s ; Diameters are measured in cm Carotid Right Measurements + +----+----+-----+ + + + !Location !PSV !EDV !Angle!%Stenosis 2D!%Stenosis Doppler!Tortuosity ! + +----+----+-----+ + + + !Prox CCA !111 !15.8!60 ! ! ! ! + +----+----+-----+ + + + !Dist CCA !87.4!17 !60 ! ! ! ! + +----+----+-----+ + + + !Prox ICA !92.7!14.1!60 ! ! ! ! + +----+----+-----+ + + + !Dist ICA !75.4!21.2!60 ! ! ! ! + +----+----+-----+ + + + !Prox ECA !137 !14.1!60 ! ! ! ! + +----+----+-----+ + + + !Vertebral !58 !14.1!60 ! ! ! ! + +----+----+-----+ + + + !Prox Subclavian!141 !0 !60 ! ! ! ! + +----+----+-----+ + + + - There is antegrade vertebral flow noted on the right side. - Additional Measurements:ICAPSV/CCAPSV 1.06.ICAEDV/CCAEDV 1.34. Carotid Left Measurements + +----+----+-----+ + + + !Location !PSV !EDV !Angle!%Stenosis 2D!%Stenosis Doppler!Tortuosity ! + +----+----+-----+ + + + !Prox CCA !125 !20.6!60 ! ! ! ! + +----+----+-----+ + + + !Dist CCA !89.6!21.2!60 ! ! ! ! + +----+----+-----+ + + + !Prox ICA !138 !21.6!60 ! ! ! ! + +----+----+-----+ + + + !Dist ICA !128 !33.4!60 ! ! ! ! + +----+----+-----+ + + + !Prox ECA !151 !14.7!60 ! ! ! ! + +----+----+-----+ + + + !Vertebral !70.9!17.6!60 ! ! ! ! + +----+----+-----+ + + + !Prox Subclavian!150 !0 !60 ! ! ! ! + +----+----+-----+ + + + - There is antegrade vertebral flow noted on the left side. - Additional Measurements:ICAPSV/CCAPSV 1.54.ICAEDV/CCAEDV 1.62. * ED ECG Interpretation (04/07/2017 4:06 AM) Miesha Bennett MD 04/07/20174:06 AM ECG/EKG Interpretation Date/Time: 04/07/2017 3:41 AM Performed by: MIESHA KELLOGG Authorized by: MIESHA KELLOGG The ECG was interpreted by ED physician. There was no previous ECG available for comparison. The ECG is interpreted as sinus rhythm. Rate is bradycardic. [place] is left. Clinical Impression: non-specific ECGECG reviewed and does not meet STEMI criteria. Patient tolerance: Patient tolerated the procedure well with no immediate complications * B-type Natriuretic Factor (BNP) (04/06/2017 9:14 PM) Component Value Ref Range BNP 193 (H) 0 - 100 pg/mL Specimen Performing Laboratory [place] [address] * XR chest 1 view portable/bedside (04/06/2017 8:25 PM) Specimen Performing Laboratory GE RIS Narrative FINAL REPORT HISTORY : chest pain. Comparison: 05/14/2010 Comment: Single portable view of the chest [...] or some scar versus calcification. Signed: Christiano Cornejo MD Report Verified Date/Time:04/06/2017 20:52:45 Reading Location: [address] Consult Reading Room Procedure Note Interface, External Ris In - 04/06/2017 8:54 PM CDT FINAL REPORT HISTORY : chest pain. Comparison: 05/14/2010 Comment: Single portable view of the chest [...] or some scar versus calcification. Signed: Christiano Cornejo MD Report Verified Date/Time: 04/06/2017 20:52:45 Reading Location: [facility] [id number] Consult Reading Room * ECG 12 lead (04/06/2017 7:57 PM) Specimen Performing Laboratory GE MUSE Narrative Ventricular Rate 57 BPM Atrial Rate 57 BPM P-R Interval 164 ms QRS Duration 84 ms Q-T Interval 472 ms QTC Calculation(Bazett) 459 ms P [place] 40 degrees R [place] -46 degrees T [place] 24 degrees Sinus bradycardia Left axis deviation Inferior infarct (cited on or before 15-MAY-2010) Probable Anterior infarct (cited on or before 14-MAY-2010) Nonspecific ST and T wave abnormality Abnormal ECG When compared with ECG of 15-MAY-2010 04:22, Nonspecific T wave abnormality, worse in Lateral leads Confirmed by Charli OWENS MICHAEL ([id number]) on 04/07/2017 7:54:50 AM Procedure Note Interface, External Ris In - 04/07/2017 7:55 AM CDT Ventricular Rate 57 BPM Atrial Rate 57 BPM P-R Interval 164 ms QRS Duration 84 ms Q-T Interval 472 ms QTC Calculation(Bazett) 459 ms P [place] 40 degrees R [place] -46 degrees T [place] 24 degrees Sinus bradycardia Left axis deviation Inferior infarct (cited on or before 15-MAY-2010) Probable Anterior infarct (cited on or before 14-MAY-2010) Nonspecific ST and T wave abnormality Abnormal ECG When compared with ECG of 15-MAY-2010 04:22, Nonspecific T wave abnormality, worse in Lateral leads Confirmed by Charli OWENS MICHAEL ([id number]) on 04/07/2017 7:54:50 AM after 11/08/2016
--- OUTSIDE RECORDS SUMMARY | 2017-11-09 04:30 | XMS REPORT ---
Author Author Admin, [facility] [place] Address [place] Phone Unavailable Allergies, Adverse Reactions, Alerts Allergy Name Reaction [...] Pariani DO Dizziness and giddiness Hx of [place] 412 Active Marianne Abad Pariani DO Old myocardial infarction EKG: ant/inf [place] Secondary hyperparathyroidism, renal origin 588.81 Active 03/07 [...] Surgery: Dr. Salamanca Insomnia 780.52 Active Marianne Abad Pariani DO Insomnia, unspecified Memory impairment 780.9 Active Marianne Baeza DO Other general symptoms 03/07 MOCA: (ptn feeling unwell) Need for home health care V60.4 Active Marianne Baeza DO No other household member able to render care Abnormality of albumin 790.99 Active Marianne Baeza DO Other nonspecific findings on examination of blood Vitamin B12 deficiency 266.9 Active Marianne Baeza DO Unspecified vitamin B deficiency 10/05 Vit B 28=156 s/p sq IM inj Heme: Dr. Camilo [...] Anemia due to CKD 285.21 Active Marianne Abadberto Baeza DO Anemia in chronic kidney disease microcytic anemia Heme: Dr. Lesli Page IV iron infusions q wk CKD stage 4 (gfr 15-29) 585.4 Active Marianne Baeza DO Chronic kidney disease, Stage IV (severe) Nephrology: Dr. Holliday Obesity Active Marianne Baeza DO Obesity , unspecified Screening for osteoporosis V82.81 Active Marianne Abad Monica MCKINNEY Screening for osteoporosis Vitamin D deficiency 268.9 Active Marianne Baeza DO Unspecified vitamin D deficiency 03/07 VITAMIN D,25-OH,TOTAL,IA [ L] 8 ng/mL tx Ergo 50,000 U X 12 wks Coronary artery disease 414.00 Active Marianne Baeza DO Coronary atherosclerosis of unspecified type of vessel, cheesh-na or graft s/p 4 v Bypass 2007 2 stents 2007, 2008 Cardiology: Dr. Elizabeth Diabetes mellitus type II 250.00 Active Marinane Baeza DO Diabetes mellitus without mention of complication, [...] Podiatry: Dr. Brennan Fatigue 780.79 Active Marianne Baeza DO Other malaise and fatigue Health care maintenance V70.0 Active Marianne Baeza DO Routine general medical examination at a health care facility Hx of endometrial cancer V10.42 Active Marianne Baeza DO Personal history of malignant neoplasm of other parts of uterus s/p SHYANNE w/BSO and chemot Onc: Dr. Katia Mclean Hyperlipidemia 272.4 Active Marianne Baeza DO Other and unspecified hyperlipidemia Hypertension 401.9 Active Marianne Baeza DO Unspecified essential hypertension Leg cramps 729.82 Active Marianne Melgoza Chelseydenilson DO Cramp of limb Peripheral vascular disease 443.89 Active Marianne Baeza DO Other peripheral vascular disease s/p LE [...] to nail, sequela ICD- 906.1 Inactive Marianne Aabd Pariani DO Fracture ICD-829.0 Inactive Marianne Abad Pariani DO Nausea and vomiting ICD-787.01 Inactive Marianne Abad Pariani DO Shingles 053.9 Inactive Marianne Baad Pariani DO Herpes zoster without mention of complication CHF 428.0 Inactive Marianne Abad Pariani DO Congestive heart failure, unspecified Dry weight 200-205 lbs 10/05 Echo: Nl EF, mod conc LVH Cardiology: Dr. Clara RODRÍGUEZ ICD-786.05 Inactive Marianne Abad Pariani DO 2016 [...] Name NDC Status Provider Patient Instruction ERGOCALCIFEROL 55872 UNIT ORAL CAPSULE 1 tab By Mouth Every wk ERGOCALCIFEROL 75403650402 Active Marianne Abad Pariani DO Active TRAMADOL HCL 50 MG ORAL TABLET take 1/2 - 1 tab By Mouth Twice a Day As Needed pain TRAMADOL HCL 18173006961 Active Marianne Baeza DO Active HUMULIN R U-500 KWIKPEN 500 UNIT/ML SUBCUTANEOUS SOLUTION PEN-INJECTOR 35 units Twice a Day SQ INSULIN REGULAR HUMAN 98542461080 Active Marianne Baeza DO Active ESCITALOPRAM OXALATE 5 MG ORAL TABLET take 1 tab By Mouth Every day for depression/anxiety ESCITALOPRAM OXALATE 43459256392 Active Marianne Baeza DO Active LORAZEPAM 0.5 MG ORAL TABLET take 1-2 tabs By Mouth As Needed As Needed anxiety LORAZEPAM 84231802742 Active Naomie Pelaez CPHT Active FISH OIL 1000 MG ORAL CAPSULE 1 tab By Mouth Every day OMEGA- 3 FATTY ACIDS 78190756202 Active Marianne Baeza DO Active CLOPIDOGREL BISULFATE 75 MG ORAL TABLET TK 1 T PO D CLOPIDOGREL BISULFATE 44043642311 Active Marianne Baeza DO Active NIFEDIPINE ER 60 MG ORAL TABLET EXTENDED RELEASE 24 HOUR Take one tab By Mouth Every Day for blood pressure NIFEDIPINE 56160724556 Active Marianne Baeza DO Active BACLOFEN 10 MG ORAL TABLET take 1/2 tab By Mouth Three Times a Day for muscle spasm BACLOFEN 68990633556 Active Marianne Baeza DO Active FUROSEMIDE 20 MG ORAL TABLET take 1 tab By Mouth As Needed LE swelling 08/12 FUROSEMIDE 47218921669 Active Marianne Baeza DO Active TRADJENTA 5 MG ORAL TABLET take 1 tab By Mouth Every day LINAGLIPTIN 43172157376 Active Naomie Pelaez CPHT Active BD PEN NEEDLE SHORT U/F 31G X 8 MM Use to dose insulin INSULIN PEN NEEDLE 21635568193 Active Naomie Pelaez CPHT Active ROLLER WALKER use when ambulating MISC. DEVICES 89598462584 Active Marianne Baeza DO Active PROAIR HFA 108 (90 Base) MCG/ACT INHALATION AEROSOL SOLUTION use Every 4-6 hrs As Needed SOB ALBUTEROL SULFATE 05423444441 Active Marianne Baeza DO Active ASPIRIN 325 MG ORAL TABLET take 1 tab By Mouth Every day ASPIRIN 87831865129 Active Marianne Baeza DO Active ATORVASTATIN CALCIUM 20 MG ORAL TABLET take 1 tab By Mouth Every at bedtime for cholesterol ATORVASTATIN CALCIUM 42252352875 Active Marianne Baeza DO Active BENAZEPRIL HCL 40 MG ORAL TABLET 1 tab By Mouth Every day BENAZEPRIL HCL 20720116068 Active Marianne Baeza DO Active CARVEDILOL 25 MG ORAL TABLET take 2 tab By Mouth bid CARVEDILOL 29901756052 Active Marianne Baeza DO Active FUROSEMIDE 40 MG ORAL TABLET take 1 tab By Mouth Every day FUROSEMIDE 33578147840 Active Kimberli Manzo LIFE SKILLS COACH Active GABAPENTIN 300 MG ORAL CAPSULE take 1 tab By Mouth bid GABAPENTIN 63670108653 Active Marianne Baeza DO Active ISOSORBIDE MONONITRATE ER 60 MG ORAL TABLET EXTENDED RELEASE 24 HOUR 1 tab By Mouth Every day ISOSORBIDE MONONITRATE 13301906507 Active Marianne Baeza DO Active METOCLOPRAMIDE HCL 5 MG ORAL TABLET take 1 tab By Mouth Every ac (30 min before meal) and hs METOCLOPRAMIDE HCL 60503377435 Active Naomie Pelaez SOLUTION MAKER Active CEPHALEXIN 500 MG ORAL CAPSULE Take one capsule Twice a Day for infection of toe CEPHALEXIN 500 MG ORAL CAPSULE 107864 CEPHALEXIN Inactive VITAMIN D3 400 UNIT ORAL CAPSULE 1 tab By Mouth Every day VITAMIN D3 400 UNIT ORAL CAPSULE CHOLECALCIFEROL Inactive VITAMIN D3 3000 UNIT ORAL TABLET 1 tab By Mouth Every day VITAMIN D3 3000 UNIT ORAL TABLET CHOLECALCIFEROL Inactive FAMCICLOVIR 500 MG ORAL TABLET take 1 tablet By Mouth Every 8 hrs FAMCICLOVIR 500 MG ORAL TABLET 011143 FAMCICLOVIR Inactive LIDOCAINE 5 % EXTERNAL OINTMENT apply to affected area Twice a Day-tid 07/27 LIDOCAINE 5 % EXTERNAL OINTMENT 3393486 LIDOCAINE Inactive TYLENOL WITH CODEINE #3 TABLET Take one tab every 6 hours as needed for pain TYLENOL WITH CODEINE #3 TABLET ACETAMINOPHEN- CODEINE TABS Inactive ZOFRAN 4 MG ORAL TABLET 1-2 tablets by mouth every 8 hours as needed for nausea ZOFRAN 4 MG ORAL TABLET 093402 ONDANSETRON HCL Inactive HUMALOG KWIKPEN 100 UNIT/ML SUBCUTANEOUS SOLUTION PEN-INJECTOR sc per SS with meals HUMALOG KWIKPEN 100 UNIT/ML SUBCUTANEOUS SOLUTION PEN-INJECTOR INSULIN LISPRO Inactive ERGOCALCIFEROL 28098 UNIT ORAL CAPSULE take 1 tab Every wk X 12 wks ERGOCALCIFEROL 02818 UNIT ORAL CAPSULE 6478646 ERGOCALCIFEROL Inactive HYDRALAZINE HCL 10 MG ORAL TABLET take 1 tab By Mouth tid HYDRALAZINE HCL 10 MG ORAL TABLET 225960 HYDRALAZINE HCL Inactive ZETIA 10 MG ORAL TABLET take 1 tab By Mouth Every day ZETIA 10 MG ORAL TABLET 900780 EZETIMIBE Inactive ALEVE TABLET 1-2 tabs As Needed pain ALEVE TABLET NAPROXEN SODIUM TABS Inactive AMLODIPINE BESYLATE 10 MG ORAL TABLET take 1 tab By Mouth Every day AMLODIPINE BESYLATE 10 MG ORAL TABLET 170064 AMLODIPINE BESYLATE Inactive CYCLOBENZAPRINE HCL 10 MG ORAL TABLET take 1 tab By Mouth As Needed CYCLOBENZAPRINE HCL 10 MG ORAL TABLET 825482 CYCLOBENZAPRINE HCL Inactive LEVEMIR FLEXTOUCH 100 UNIT/ML SUBCUTANEOUS SOLUTION PEN-INJECTOR take 50 U By Mouth Twice a Day, titrate up to a fsg goal ~ 140 LEVEMIR FLEXTOUCH 100 UNIT/ML SUBCUTANEOUS SOLUTION PEN-INJECTOR INSULIN DETEMIR Inactive METFORMIN HCL 1000 MG ORAL TABLET 1 tab By Mouth bid METFORMIN HCL 1000 MG ORAL TABLET 649425 METFORMIN HCL Inactive CEPHALEXIN 500 MG ORAL CAPSULE Take one capsule Twice a Day for infection of toe CEPHALEXIN 64789793072 No Longer Active Marianne Barbosaani DO Active VITAMIN D3 400 UNIT ORAL CAPSULE 1 tab By Mouth Every day CHOLECALCIFEROL 31084319964 No Longer Active Marianne Abad Baeza DO Active VITAMIN D3 3000 UNIT ORAL TABLET 1 tab By Mouth Every day CHOLECALCIFEROL 80413477722 No Longer Active Marianne Abad Baeza DO Active FAMCICLOVIR 500 MG ORAL TABLET take 1 tablet By Mouth Every 8 hrs FAMCICLOVIR 86404132566 No Longer Active Marianne Abad Baeza DO Active LIDOCAINE 5 % EXTERNAL OINTMENT apply to affected area Twice a Day-tid 07/27 LIDOCAINE 37224610855 No Longer Active Marianne Abad Chelseydenilson DO Active PROMETHAZINE HCL 12.5 MG ORAL TABLET take 1-2 tablets Every 4-6 hrs As Needed nauea PROMETHAZINE HCL 35205823568 No Longer Active Marianne Abad Baeza DO Active TYLENOL WITH CODEINE #3 TABLET Take one tab every 6 hours as needed for pain ACETAMINOPHEN-CODEINE TABS 89188893683 No Longer Active Marianne Abad Chelseydenilson DO Active ZOFRAN 4 MG ORAL TABLET 1-2 tablets by mouth every 8 hours as needed for nausea ONDANSETRON HCL 43134652776 No Longer Active Marianne Bernardoish Chelseydenilson DO Active HUMALOG 100 UNIT/ML SUBCUTANEOUS SOLUTION sc per SS with meals and Every at bedtime INSULIN LISPRO 99846674361 No Longer Active Marianne Abad Baeza DO Active HUMALOG KWIKPEN 100 UNIT/ML SUBCUTANEOUS SOLUTION PEN-INJECTOR sc per SS with meals INSULIN LISPRO 96001421708 No Longer Active Marianne Abadberto Barbosaani DO Active NOVOLOG FLEXPEN 100 UNIT/ML SUBCUTANEOUS SOLUTION PEN-INJECTOR sc per SS with meals INSULIN ASPART 62930394369 No Longer Active Naomie Pelaez CPHT Active ERGOCALCIFEROL 22357 UNIT ORAL CAPSULE take 1 tab Every wk X 12 wks ERGOCALCIFEROL 19481888357 No Longer Active Marianne Abad Baeza DO Active HYDRALAZINE HCL 10 MG ORAL TABLET take 1 tab By Mouth tid HYDRALAZINE HCL 46964741107 No Longer Active Marianne Abad Barbosaani DO Active ZETIA 10 MG ORAL TABLET take 1 tab By Mouth Every day EZETIMIBE 29331173736 No Longer Active Marianne Abad Chelseydenilson DO Active ALEVE TABLET 1-2 tabs As Needed pain NAPROXEN SODIUM TABS 86496521411 No Longer Active Marianne Abad Baeza DO Active AMLODIPINE BESYLATE 10 MG ORAL TABLET take 1 tab By Mouth Every day AMLODIPINE BESYLATE 52869872682 No Longer Active Marianne Abad Barbosaani DO Active CYCLOBENZAPRINE HCL 10 MG ORAL TABLET take 1 tab By Mouth As Needed CYCLOBENZAPRINE HCL 99210207390 No Longer Active Marianne Abad Chelseydenilson DO Active LEVEMIR FLEXTOUCH 100 UNIT/ML SUBCUTANEOUS SOLUTION PEN-INJECTOR take 50 U By Mouth Twice a Day, titrate up to a fsg goal ~ 140 INSULIN DETEMIR 27965007511 No Longer Active Marianne Abad Baeza DO Active METFORMIN HCL 1000 MG ORAL TABLET 1 tab By Mouth bid METFORMIN HCL 10936419876 No Longer Active Marianne Abad Baeza DO Active SIMVASTATIN 40 MG ORAL TABLET take 1 tab By Mouth Every at bedtime SIMVASTATIN 20096033330 No Longer Active Naomie Pelaez [facility] Active Immunizations Vaccine Administration Date Value Standard [...] temperature weight E&M 221 [lb_av] Weight Measured Diagnostic Results Date Name [...] ... - Lab reticulocyte count, blood, absolute 432337 CELLS/UL 10*6/mm3 41696-24463 Lab Report: URINALYSIS REFLEX - Urinalysis appearance, urine CLEAR CLEAR Lab Report: COMPREHENSIVE METABOLIC PANEL, CBC (INCLUDES DIFF/PLT), INNA ... - Chemistry globulins, serum, total 2.7 G/DL (CALC) g/dL 1.9-3.7 Lab Report: COMPREHENSIVE METABOLIC PANEL, CBC (INCLUDES DIFF/PLT), INNA ... - Hematology platelet count 228 THOUSAND/UL 10*3/mm3 691-562 3897/09/20 red blood cell distribution width 14.4 % 11.0-15.0 Lab Report: COMPREHENSIVE METABOLIC PANEL, CBC (INCLUDES DIFF/PLT), INNA ... - Chemistry protein, total, serum 6.1 g/dL 6.1-8.1 Lab Report: LIPID PANEL, HDL CHOLESTEROL, TRIGLYCERIDES, LDL-CHOLESTEROL ... - Chemistry HDL cholesterol, serum 35 mg/dL > OR=46 cholesterol, non-HDL, total 150 MG/DL (CALC) mg/dL Lab Report: URINALYSIS REFLEX - Urinalysis glucose, [...] pg/mL 200-1100 Absolute Neutrophil count 4935 {Cells}/uL [phone] Lab Report: URINALYSIS REFLEX - Urinalysis protein, [...] Internal Correspondence: Pre-Visit Planning - [facility] care teamcenter consultant #1, name Lili Aragon Lab Report: COMPREHENSIVE [...] of blood leukocytes 26.3 % Lab Report: COMPREHENSIVE METABOLIC PANEL, CBC (INCLUDES DIFF/PLT), INNA ... - Chemistry carbon dioxide, venous blood 21 mmol/L 20-31 Lab Report: URINALYSIS REFLEX - Chemistry RBC, Urine 0-2 /HPF /[HPF] < OR=2 Lab Report: IRON, TIBC AND FERRITIN PANEL, FERRITIN, BASIC METABOLIC CLAIRE ... - Serology rapid plasma reagin antibody, serum NON-REACTIVE NON-REACTIVE Lab Report: COMPREHENSIVE METABOLIC PANEL, CBC (INCLUDES DIFF/PLT), INNA ... - Chemistry sodium, serum 126 mmol/L 053-241 5184/09/20 hemoglobin A1C, blood, as % of total [...] CBC (INCLUDES DIFF/PLT), INNA ... - Chemistry potassium, serum 4.7 mmol/L 3.5-5.3 blood glucose, random 729 mg/dL 65-99 Lab Report: URINALYSIS REFLEX - Chemistry occult [...] Provider Code Facility 00:32:20 CDT Est Patient Comprehensive-03262 Marianne Abad Pariani DO [facility]-[address] [facility] 21:21:28 CDT Ofc Vst, Est Level V Marianne Abad Pariani DO [facility]- [address] [facility] 16:00:39 CDT Est Patient Detailed - 51211 Marianne Abad Pariani DO [facility]-[address] [facility] 00:09:50 CDT Ofc Vst, Est Level V Marianne Abad Pariani DO [facility]- [address] [facility] 23:16:00 CDT Est Patient Detailed - 83601 Marianne Abad Pariani DO [facility]-[address] [facility] 20:07:40 CDT Ofc Vst, Est Level V Marianne Abad Pariani DO [facility]- [address] [facility] 14:14:04 CDT Est Patient Detailed - 47366 Marianne Abad Pariani DO [facility]-[address] [facility] 23:17:07 SUPPORT SERVICE TECH Ofc Vst, Est Level V Marianne Abad Pariani DO [facility]- [address] [facility] 23:49:16 SUPPORT SERVICE TECH Ofc Vst, Est Level IV Marianne Abad Pariani DO CPT- 20435 [facility] 23:33:28 SUPPORT SERVICE TECH Ofc Vst, Est Level V Marianne Abad Pariani DO CPT- 68506 [facility] 19:36:40 SUPPORT SERVICE TECH Ofc Vst, Est Level IV Marianne Abad Pariani DO CPT- 02455 [facility] 22:25:43 SUPPORT SERVICE TECH Ofc Vst, Est Level IV Marianne Abad Pariani DO CPT- 95028 [facility] 21:38:23 SUPPORT SERVICE TECH Ofc Vst, New Level IV Marianne Abad Pariani DO CPT- 95208 [facility] Procedures Code Procedure Name Date Entry Date Standard Description CPT-00335 EKG - Tracing Only 21:21:28 CDT CPT-63808 EKG - Interpretation & Report Only 21:21:27 CDT CPT-68591 Urinalysis - Dip only - In House 16:04:03 CDT CPT-40587 Psychotherapy 30 (16-37*) min - 73954 (with patient and/or family member) 10:58:58 CDT CPT-36975 Diagnostic evaluation (no medical) - 26205 14:08:49 CDT CPT-27602 Glucose Stick 23:49:14 SUPPORT SERVICE TECH CPT-07392 Glucose Stick 23:33:26 SUPPORT SERVICE TECH CPT-07627 Glucose Stick 21:38:23 SUPPORT SERVICE TECH
--- OUTSIDE RECORDS SUMMARY | 2017-11-09 04:30 | XMS REPORT | Continuity of Care Document ---
Author Author [facility] Organization [facility] Address [address] [place] [address] Phone Unavailable Care Team Providers Care [employer] Name Role Phone KARISHMA ALBRECHT MD PCP Unavailable Insurance Providers Guarantor Layo Bobo Address [id number] [place] [id number] Payer [employer] Medicare Replacement Policy Number [id number] Subscriber's Name Layo Bobo Relationship 18 Self / Same As Patient Group Number [id number] Group Name [employer] Effective Date 14 Advance Directives Directive Response Recorded Date/Time Does the patient have an advance directive? No 07/31/17 10:46pm If yes, is advance directive on file with [facility]? No 03/10/17 10:10am If not on file with [facility] will patient provide a copy? No 03/10/17 10:10am Do you have a Directive to Physician? No 09/21/17 10:15am Do you have a Medical Power of Colon And Rectal Surgeon? No 09/21/17 10:15am Do you have an out of hospital Do Not Resuscitate Order? No 09/21/17 10:15am Do you have any special needs we should be aware of? No 09/21/17 10:15am Do you have a support person here with you today? No 09/21/17 10:15am Did patient receive Notice of Privacy Practices? Yes 09/21/17 10:15am Did patient receive patient rights and responsibilities? Yes 09/21/17 10:15am Problems Medical Problem Onset Date Status Chest pain Unknown Medications Current Home Medications Medication Dose Units Route Directions Days Qty Instructions Start Date Ascorbic Acid 500 Mg Tablet 500 Mg Oral Twice A Day 30 Days Aspirin (Aspir 81) 81 Mg Tablet.dr 81 Mg Oral Daily Atorvastatin Calcium 20 Mg Tablet 20 Mg Oral Bedtime 30 Tab Baclofen 10 Mg Tablet 10 Mg Oral Daily 30 Days 08/12/17 Carvedilol 12.5 Mg Tablet 25 Mg Oral Twice A Day 60 Tab Clopidogrel Bisulfate (Plavix) 75 Mg Tablet 75 Mg Oral Daily 30 Tab Docusate Sodium 100 Mg Capsule 100 Mg Oral Twice A Day 30 Days Escitalopram Oxalate (Lexapro) 10 Mg Tablet 5 Oral Daily 30 Tab Fenofibrate Nanocrystallized (Fenofibrate) 145 Mg Tablet 160 Mg Oral Daily Folic Acid/Cyanocob/Pyridoxine (Nephro-Nick Tablet) 1 Ea Tab 1 Ea Oral Daily 30 Days 08/05/17 Furosemide 40 Mg Tablet 20 Mg Oral As Needed as needed for .swelling 30 Tab Gabapentin 300 Mg Capsule 600 Mg Oral Twice A Day 60 Cap Insulin Human Regular (Humulin-R 10ML Vial) 100 Units/Ml Inj 45 Units Subcutaneously Twice A Day Linagliptin (Tradjenta) 5 Mg Tablet 5 Mg Oral Daily Lorazepam 0.5 Mg Tablet 0.5 Mg Oral Daily as needed for Anxiety 14 Days 08/05/17 Nifedipine (Procardia Xl) 30 Mg Tab.er.24 60 Mg Oral Daily 30 Days 08/12/17 Ondansetron (Zofran Odt) 4 Mg Tab.rapdis 4 Mg Oral Every 6 Hours as needed for Nausea 30 08/12/17 Pindolol 5 Mg Tablet 5 Mg Oral Twice A Day Simvastatin (Zocor) 40 Mg Tablet 40 Mg Oral Bedtime 30 Tab Past Home Medications Medication Directions Ordered Status Baclofen 10 Mg Tablet, 10 Mg Oral Three Times A Day Discontinued Cardene , 20 Mg Oral Every 8 Hours Discontinued Ciprofloxacin Hcl (Cipro) 500 Mg Tablet, 500 Mg Oral Every 12 Hours Discontinued Levofloxacin (Levaquin) 250 Mg Tablet, 750 Mg Oral Daily Discontinued Lisinopril 10 Mg Tablet, 20 Mg Oral Daily Discontinued Lorazepam 0.5 Mg Tablet, 0.5 Mg Oral As Needed as needed for Anxiety Discontinued Metoclopramide Hcl 10 Mg Tablet, 5 Mg Oral Before Meals And At Bedtime Discontinued Social History Social History Problem Response Recorded Date/Time Onset Date Status Hx Psychiatric Problems No 07/31/2017 10:46pm Not Applicable Not Applicable Hospital Discharge Instructions No hospital discharge instruction information available. Plan of Care Prescriptions See Medication Section Functional Status No functional status information available. Allergies, Adverse Reactions, Alerts Allergen Type Severity Reaction Status Last Updated Hydralazine Allergy Unknown Active 07/31/17 Immunizations No immunization information available. Vital Signs Acute Vital Signs Vital Response Date/Time Temperature (Fahrenheit) 97.4 degrees F (97.6 - 99.5) 08/12/2017 4:00pm Pulse Pulse Rate (adult) 67 bpm (60 - 90) 08/12/2017 4:00pm Respiratory Rate 18 bpm (12 - 24) 08/12/2017 4:00pm Blood Pressure 153/92 mm Hg 08/12/2017 4:00pm Results Laboratory Results Test Name Result Units Flags Reference Collection Date/Time Result Date/ Time Comments Erythrocyte Sedimentation Rate 71 mm/hr H 0-20 05/19/2017 12:45pm 2016 2:39pm Prealbumin 31 mg/dL 10-36 05/19/2017 12:45pm 05/20/2017 8:56pm Performed at: [facility] [id number] Customer Orders Clerk: Rafa Zamora MD, Phone: [phone] C-Reactive Protein 12.8 mg/L H 0.0-4.9 05/19/2017 12:45pm 05/20/2017 8: 56pm White Blood Count 8.12 x10e3/uL 4.8-10.8 08/12/2017 6:33am 08/12/2017 7 :05am Red Blood Count 3.55 x10e6/uL L 3.6-5.1 08/12/2017 6:33am 08/12/2017 7: 05am Hemoglobin 10.2 g/dL L 12.0-16.0 08/12/2017 6:33am 08/12/2017 7:05am Hematocrit 30.5 % L 34.2-44.1 08/12/2017 6:33am 08/12/2017 7:05am Mean Corpuscular Volume 85.9 fL 81-99 08/12/2017 6:am 08/12/2017 7: 05am Mean Corpuscular Hemoglobin 28.7 pg 28-32 08/12/2017 6:33am 08/12/2017 7:05am Mean Corpuscular Hemoglobin Concent 33.4 g/dL 31-35 08/12/2017 6:am 08/12/2017 7:05am Red Cell Distribution Width 13.8 % 11.7-14.4 08/12/2017 6:33am 2017 7:05am Platelet Count 194 x10e3/uL 140-360 08/12/2017 6:am 08/12/2017 7: 05am Neutrophils (%) (Auto) 57.4 % 38.7-80.0 08/12/2017 6:am 08/12/2017 7: 05am Lymphocytes (%) (Auto) 33.6 % 18.0-39.1 08/12/2017 6:08/12/2017 7: 05am Monocytes (%) (Auto) 6.0 % 4.4-11.3 08/12/2017 6:am 08/12/2017 7: 05am Eosinophils (%) (Auto) 2.7 % 0.0-6.0 08/12/2017 6:am 08/12/2017 7: 05am Basophils (%) (Auto) 0.1 % 0.0-1.0 08/12/2017 6:08/12/2017 7:05am IM GRANULOCYTES % 0.2 % 0.0-1.0 08/12/2017 6:08/12/2017 7:05am Neutrophils # (Auto) 4.7 2.1-6.9 08/12/2017 6:am 08/12/2017 7:05am Lymphocytes # (Auto) 2.7 1.0-3.2 08/12/2017 6:am 08/12/2017 7:05am Monocytes # (Auto) 0.5 0.2-0.8 08/12/2017 6:33am 08/12/2017 7:05am Eosinophils # (Auto) 0.2 0.0-0.4 08/12/2017 6:33am 08/12/2017 7:05am Basophils # (Auto) 0.0 0.0-0.1 08/12/2017 6:33am 08/12/2017 7:05am Absolute Immature Granulocyte (auto 0.02 x10e3/uL 0-0.1 08/12/2017 6: 33am 08/12/2017 7:05am Prothrombin Time 16.3 seconds H 11.9-14.5 07/31/2017 3:20pm 07/31/2017 4 :04pm Prothromb Time International Ratio 1.42 07/31/2017 3:20pm 2017 4:04pm Oral Anticoagulant Therapy INR Values: 1. Low Intensity Therapy 1.5 - 2.0 2. Moderate Intensity Therapy 2.0 - 3.0 3. High Intensity Therapy(1) 2.5 - 3.5 4. High Intensity Therapy(2) 3.0 - 4.0 5. Panic Value INR > 5.0 Activated Partial Thromboplast Time 30.1 seconds 23.8-35.5 07/31/2017 3: 20pm 07/31/2017 4:04pm Urine Color YELLOW YELLOW 08/08/2017 8:30am 08/08/2017 8:57am Urine Clarity CLEAR CLEAR 08/08/2017 8:30am 08/08/2017 8:57am Urine Specific [place] 1.015 1.010-1.025 08/08/2017 8:30am 2017 8:57am Urine pH 5 5 - 7 08/08/2017 8:30am 08/08/2017 8:57am Urine Leukocyte Esterase TRACE H NEGATIVE 08/08/2017 8:30am 2017 8:57am Urine Nitrite NEGATIVE NEGATIVE 08/08/2017 8:30am 08/08/2017 8:57am Urine Protein 3+ H NEGATIVE 08/08/2017 8:30am 08/08/2017 8:57am Urine Glucose (UA) TRACE H NEGATIVE 08/08/2017 8:30am 08/08/2017 8: 57am Urine Ketones NEGATIVE NEGATIVE 08/08/2017 8:30am 08/08/2017 8:57am Urine Urobilinogen 0.2 mg/dL 0.2 - 1 08/08/2017 8:30am 08/08/2017 8: 57am Urine Bilirubin NEGATIVE NEGATIVE 08/08/2017 8:30am 08/08/2017 8: 57am Urine Blood TRACE H NEGATIVE 08/08/2017 8:30am 08/08/2017 8:57am Urine WBC 11-20 /HPF H 0-5 08/08/2017 8:30am 08/08/2017 9:13am Urine RBC 0-5 /HPF 0-5 08/08/2017 8:30am 08/08/2017 9:13am Urine Bacteria RARE /HPF NONE 08/08/2017 8:30am 08/08/2017 9:13am Urine Epithelial Cells MANY /LPF NONE 08/08/2017 8:30am 08/08/2017 9: 13am Sodium Level 137 mmol/L 136-145 08/12/2017 6:33am 08/12/2017 7:35am Potassium Level 5.1 mmol/L 3.5-5.1 08/12/2017 6:33am 08/12/2017 7:35am Chloride Level 105 mmol/L 98-107 08/12/2017 6:33am 08/12/2017 7:35am Influenza Virus Types A,B Antigen NEGATIVE NEGATIVE 07/31/2017 2:53pm 07/31/2017 3:27pm Carbon Dioxide Level 24 mmol/L 22-08/12/2017 6:33am 08/12/2017 7: 35am Anion Gap 13.1 mmol/L 8-16 08/12/2017 6:33am 08/12/2017 7:35am Blood Urea Nitrogen 43 mg/dL H 7-08/12/2017 6:33am 08/12/2017 7:35am Creatinine 3.12 mg/dL H 0.57-1.11 08/12/2017 6:33am 08/12/2017 7:35am BUN/Creatinine Ratio 14 6-08/12/2017 6:33am 08/12/2017 7:35am Estimat Glomerular Filtration Rate 15 ML/MIN L 60- 08/12/2017 6:33am 7:35am Ranges were taken from the National Kidney Disease Education Program and the National Kidney Foundation literature. Reference ranges: 60 or greater: Normal 16-59 (for 3 consecutive months): Chronic kidney disease 15 or less: Kidney failure Glucose Level 190 mg/dL H 74-118 08/12/2017 6:33am 08/12/2017 7:35am Calcium Level 8.5 mg/dL 8.4-10.2 08/12/2017 6:33am 08/12/2017 7:35am Hemoglobin A1c Percent 8.0 % H 4.0-7.0 08/01/2017 4:41am 08/01/2017 3: 36pm Phosphorus Level 4.8 MG/DL H 2.3-4.7 08/12/2017 6:33am 08/12/2017 7: 35am Magnesium Level 1.9 MG/DL 1.3-2.1 08/12/2017 6:33am 08/12/2017 7:35am Total Bilirubin 0.6 mg/dL 0.2-1.2 08/01/2017 4:45am 08/01/2017 5:40am Aspartate Amino Transf (AST/SGOT) 16 IU/L 5-34 08/01/2017 4:45am 2017 5:40am Alanine Aminotransferase (ALT/SGPT) 6 IU/L 0-55 08/01/2017 4:45am 08/01 5:40am Ammonia 52 UG/DL 31-123 08/05/2017 6:43am 08/05/2017 7:28am Total Protein 6.6 g/dL 6.5-8.1 08/01/2017 4:45am 08/01/2017 5:40am Albumin 3.2 g/dL L 3.5-5.0 08/01/2017 4:45am 08/01/2017 5:40am Globulin 3.4 g/dL 2.3-3.5 08/01/2017 4:45am 08/01/2017 5:40am Albumin/Globulin Ratio 0.9 0.8-2.0 08/01/2017 4:45am 08/01/2017 5: 40am Alkaline Phosphatase 54 IU/L 40-150 08/01/2017 4:45am 08/01/2017 5: 40am Triglycerides Level 246 MG/DL H 0-149 08/01/2017 4:45am 08/01/2017 5: 40am Cholesterol Level 223 MD/DL H 0-199 08/01/2017 4:45am 08/01/2017 5:40am Less than 200 mg/dL Low Risk 201 - 239 mg/dL Borderline Risk 240 mg/dl and greater High Risk LDL Cholesterol 138 MG/DL H 60-130 08/01/2017 4:45am 08/01/2017 5:40am HDL Cholesterol 36 MG/DL L 40-60 08/01/2017 4:45am 08/01/2017 5:40am Cholesterol/HDL Ratio 6.2 H 3.0-3.6 08/01/2017 4:45am 08/01/2017 5: 40am B-Type Natriuretic Peptide 69.2 pg/mL 0-100 08/07/2017 7:37am 2017 8:44am Creatine Kinase 211 IU/L H 29-168 08/01/2017 12:57pm 08/01/2017 1:28pm Creatine Kinase MB 2.70 ng/mL 0.00-5.00 08/01/2017 12:57pm 08/01/2017 1 :35pm Troponin I 0.032 ng/mL 0-0.300 08/01/2017 12:57pm 08/01/2017 1:35pm Amylase Level 14 U/L L 25-125 07/31/2017 3:44pm 07/31/2017 4:39pm Lipase 22 U/L 8-78 07/31/2017 3:44pm 07/31/2017 4:39pm Bedside Glucose 205 mg/dL H 70-120 09/15/2017 1:55pm 09/16/2017 6:35am Meter ID: [id number] Microbiology Results Procedure Source Organism/Result Collection Date/Time Result Date/Time Result Status Wound Culture Toe, Left Big ENTEROCOCCUS FAECALIS 09/16/2017 12:00pm 2017 10:53am Final STREP AGALACTIAE GROUP B 09/16/2017 12:00pm 09/20/2017 10:53am Final Procedures Procedure Status Date Provider(s) EXCISION OF L FOOT SUBCU/FASCIA, OPEN APPROACH Completed 08/03/17 MAZIN SQUIRES X-ray of chest, two views Active 05/26/17 SABRINA LOPEZ DPM X-ray of chest, two views Active 07/31/[address] of abdomen and pelvis without contrast Active 07/31/17 GIANCARLO AGARWAL 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 Computed tomography of brain without radiopaque contrast Active 08/04/17 GOLD AYALA NP Magnetic resonance imaging of brain without contrast Active 08/04/17 GOLD AYALA NP Encounters Encounter Location Arrival/Admit Date Discharge/Depart Date Attending Provider Discharged [facility] [place] 10/13/17 1:30pm 10/18/17 11:59pm SABRINA OLPEZ DPM Discharged [facility] [place] 09/15/17 12:09pm 11:59pm SABRINA LOPEZ DPM Discharged [facility]patient [facility] [place] 08/02/17 12:55pm 6:00pm TONG CLAYTON MD Discharged [facility] 07/28/17 12:47pm 11:59pm SABRINA LOPEZ DPM Discharged [facility] 07/21/17 12:53pm 11:59pm SABRINA LOPEZ DPM Discharged [facility] 05/26/17 12:00pm 11:59pm SABRINA LOPEZ DPM Discharged [facility] 05/12/17 11:31am 11:59pm SABRINA LOPEZ DPM Discharged [facility] 03/24/17 1:31pm 04/20/17 11:59pm SABRINA LOPEZ DPM Discharged [facility] 03/16/17 8:50am 03/20/17 11:59pm SABRINA LOPEZ DPM
[2017-11-09] MEDS ORDERED: NITROGLYCERIN 2% OINT 1 GM PKT ONE (05:10)
[2017-11-09] MEDS ORDERED: NITROGLYCERIN 2% OINT 1 GM PKT TOP ONE (05:15)
[2017-11-09] MEDS ORDERED: MORPHINE SULFATE 2 MG/ML SYR IV STA (05:33)
[2017-11-09 05:40] LABS: BASOPHILS % 0.1 % (0.0-1.0); EOSINOPHILS # (AUTO) 0.5 (0.0-0.4); EOSINOPHILS % 4.6 % (0.0-6.0); HEMATOCRIT 29.5 % (34.2-44.1); HEMOGLOBIN 9.7 g/dL (12.0-16.0); LYMPHOCYTES # (AUTO) 1.5 (1.0-3.2); LYMPHOCYTES % 15.2 % (18.0-39.1); MEAN CORPUSCULAR HGB CONC 32.9 g/dL (31-35); MEAN CORPUSCULAR VOLUME 88.1 fL (81-99); MONOCYTES # (AUTO) 0.5 (0.2-0.8); MONOCYTES % 5.2 % (4.4-11.3); NEUTROPHILS # (AUTO) 7.5 (2.1-6.9); NEUTROPHILS % 74.6 % (38.7-80.0); PLATELET COUNT 218 x10e3/uL (140-360); RED BLOOD COUNT 3.35 x10e6/uL (3.6-5.1); RED CELL DISTRIBUTION WIDTH 14.7 % (11.7-14.4)
[2017-11-09] MEDS ORDERED: ONDANSETRON HCL 4 MG ORAL DISINTEGRATING TAB PO ONE (05:45)
[2017-11-09 05:51] LABS: INR 1.22; PROTHROMBIN TIME 14.5 seconds (11.9-14.5)
[2017-11-09 05:52] LABS: PARTIAL THROMBOPLASTIN TIME 30.1 seconds (23.8-35.5)
[2017-11-09 05:55] LABS: CLARITY,URINE CLEAR (CLEAR); COLOR,URINE YELLOW (YELLOW)
[2017-11-09 05:56] LABS: BILIRUBIN,URINE NEGATIVE (NEGATIVE); KETONES,URINE NEGATIVE (NEGATIVE); LEUKOCYTE ESTERASE ,URINE NEGATIVE (NEGATIVE); NITRITE,URINE NEGATIVE (NEGATIVE); PROTEIN,URINE DIPSTICK 2+ (NEGATIVE); URINE UROBILINOGEN 0.2 mg/dL (0.2 - 1)
--- NOTE | 2017-11-09 05:56 | Diagnostic Imaging Report ---
EXAM: CHEST SINGLE (PORTABLE), AP 1 view INDICATION: Shortness of breath, hypertension COMPARISON: PA and lateral view of the chest July 31, 2017 FINDINGS: LINES/TUBES: Stable position right subclavian chest port. LUNGS: Interval increased vascular congestion, likely related to low inspiration. Mild bibasilar atelectasis. PLEURA: No effusions or pneumothorax. HEART AND MEDIASTINUM: Stable cardiac size given differences in positioning. Stable median sternotomy wires and mediastinal clips. BONES AND SOFT TISSUES: No acute findings. IMPRESSION: No significant interval change given differences in technique and positioning. Signed by: Dr. Francie Lynch M.D. on 11/09/2017 5:52 AM
[2017-11-09 06:01] LABS: ALBUMIN 2.8 g/dL (3.5-5.0); ALBUMIN/GLOBULIN RATIO 0.9 (0.8-2.0); ANION GAP 12.7 mmol/L (8-16); CALCIUM 8.5 mg/dL (8.4-10.2); CREATININE, SERUM 2.96 mg/dL (0.57-1.11); MAGNESIUM 1.5 MG/DL (1.3-2.1); POTASSIUM 4.7 mmol/L (3.5-5.1)
[2017-11-09 06:08] LABS: CREATINE KINASE MB 2.2 ng/mL (0-5.0)
[2017-11-09 06:13] LABS: EPITHELIAL CELLS,URINE RARE /LPF
[2017-11-09] MEDS ORDERED: NIFEDIPINE 10 MG CAP PO ONE (06:45)
[2017-11-09] MEDS ORDERED: FUROSEMIDE INJ 10 MG/ML 4 ML VIAL IV ONE (06:45)
[2017-11-09] MEDS ORDERED: DEXTROSE 50% SYRINGE 50 ML IV PRN (07:15)
[2017-11-09] MEDS ORDERED: MORPHINE SULFATE 2 MG/ML SYR IV PRN (07:15)
[2017-11-09] MEDS ORDERED: ONDANSETRON HCL 4 MG ORAL DISINTEGRATING TAB PO PRN (07:15)
--- OUTSIDE RECORDS SUMMARY | 2017-11-09 07:25 | XMS REPORT | Clinical Summary ---
Author Author PAWAN [facility] Address Unknown Phone Unavailable Care Team Providers Care Adjunct Professor Name Role Phone PCP Unavailable Allergies Active [...] Specialty Care Team Description [facility]07[facility]2017 [facility] Chest pain, unspecified - [...] (A) Negative Specimen Performing Laboratory Stool [facility] [address] [address] * POC-Glucose meter (04/08/2017 5:06 PM) Only the most recent of 4 results within the time period is included. Component Value Ref Range POC-Glucose Meter 275 (H)Comment: TESTED AT [address] 70 - 110 mg /dL [facility] [id number] Specimen Performing Laboratory Blood [address] [address] * STOOL PATH CHARGE (04/08/2017 4:50 PM) Component Value Ref Range Pathogen exam charged Done Specimen Performing Laboratory Stool - Per Rectum [address] [address] * Fecal leukocytes (04/08/2017 4:50 PM) Component Value Ref Range Fecal Leukocytes No fecal leukocytes seen No fecal leukocytes seen Specimen Performing Laboratory Stool - Per Rectum [address] [address] * Stool culture + Shiga toxin (04/08/2017 4:50 PM) Component Value Ref Range Result No Salmonella, Shigella or Campylobacter isolated Specimen Performing Laboratory Stool - Per Rectum [address] [address] Narrative Unable to test for Shiga Toxin 1 due to insufficient growth of specimen. Unable to test for Shiga Toxin 2 due to insufficient growth of specimen. Resubmit new specimen if clinically indicated. * NM myocardial perfusion PET (rest and stress) (04/08/2017 3:53 PM) Specimen Performing Laboratory [facility] Narrative FINAL REPORT PROCEDURE: Rest/Stress MYOCARDIAL PERFUSION PET with regadenoson\\XA9\\ CPT CODE: 54551 INDICATION: Chest pain HISTORY: Cardiac risk factors: [...] stress.5. Normal extracardiac tracer distribution.6. No previous [facility] study for comparison. NONINVASIVE RISK STRATIFICATION: The above findings are considered low risk (<1% annual or AL) based on the following criterion: - Normal or small myocardial perfusion defect at rest or with stress encumbering <5% of the myocardium - Normal stress or no change of limited resting wall motion abnormalities during stress (JACC. 2017;69(33):1262-88.) Signed: Arturo Reyes MD Report Verified Date/Time:04/08/2017 17:02:21 Reading Location: [address] Reading Room Procedure Note Interface, External Ris In - 04/08/2017 5:04 PM CDT FINAL REPORT PROCEDURE: Rest/Stress MYOCARDIAL PERFUSION PET with regadenoson\\XA9\\ CPT CODE: 21099 INDICATION: Chest pain HISTORY: Cardiac risk factors: [...] Normal extracardiac tracer distribution. 6. No previous [facility] study for comparison. NONINVASIVE RISK STRATIFICATION: The above findings are considered low risk (<1% annual or AL) based on the following criterion: - Normal or small myocardial perfusion defect at rest or with stress encumbering <5% of the myocardium - Normal stress or no change of limited resting wall motion abnormalities during stress (JACC. 2017;69(17):9772-92.) Signed: Arturo Reyes MD Report Verified Date/Time: 04/08/2017 17:02:21 Reading Location: [address] Reading Room * Treadmill tolerance(Non-Nuclear Treadmill) (04/08/2017 3:32 PM) Specimen Performing Laboratory [place] Narrative Protocol Name Regadenoson Time In Exercise [...] 3:50:01 PM Confirmed by MD CRUZ JORGE ([id number]) on 04/14/2017 12:07:33 PM * CBC with [...] Granulocytes-Relative Specimen Performing Laboratory Blood - Arm, [place] [address] * Troponin I (04/08/2017 4:50 AM) Only the most recent of 4 results within the time period is included. Component Value Ref Range Troponin I 0.04 (H) 0.00 - 0.03 ng/mL Specimen Performing Laboratory Blood - Arm, [place] [address] Narrative Troponin I (TnI) levels must be [...] --------- - ------ CBC with platelet count ...[[id number]]AbnormalFinal result Please view results for these tests on the individual orders. * Magnesium (04/08/2017 4:50 AM) Only the most recent of 2 results within the time period is included. Component Value Ref Range Magnesium 1.6 1.6 - 2.6 mg/dL Specimen Performing Laboratory Blood - Arm, [facility] [address] [place] [address] * Basic Metabolic Panel (04/08/2017 4:50 AM) [...] Specimen Performing Laboratory Blood - Arm, Right [id number] [place] [address] * US Renal with Doppler (04/08/2017 4:15 AM) Specimen Performing Laboratory [employer] FINAL REPORT U/S, RENAL WITH DOPPLER INDICATION: [...] MD Report Verified Date/Time:04/08/2017 05:15:25 Reading Location: [facility] C013Y CT Body Reading Room Procedure Note [...] Report Verified Date/Time: 04/08/2017 05:15:25 Reading Location: [facility] B1 C013Y CT Body Reading Room * [...] [facility] [address] [place] [address] Narrative CK-MB Reference Range: <6.7Normal 6.7-10.0Borderline >10.0 Abnormal * ECHOCARDIOGRAM REPORT - SCAN (04/07/2017 6:20 PM) * PERIPHERAL VASCULAR REPORT - SCAN (04/07/2017 12:52 PM) * Hemoglobin A1c (04/07/2017 12:12 PM) Component Value Ref Range Hemoglobin A1C 10.1 (H) 4.3 - 6.1 % Specimen Performing [place] [address] * 2D Echo W/Doppler(CW/PW/Color) (04/07/2017 12:08 PM) Component Value Ref Range Ejection Fraction Specimen Performing Laboratory [facility] ECHO [facility]ART[facility] MKCKESSON CPACS Narrative Transthoracic Echocardiography Report (TTE) Demographics Patient Maia Sterling of Study04/07/2017 GHAZALA Gender Female Visit [id number] Race Unknown [id number] Number Date of 1945 Referring Physician Age 72 year(s) Experimental Physicist Interpreting [facility] Needs to be Pre Physician [...] Study 04/07/2017 GHAZALA Gender Female Visit Number [id number] Race Unknown Room Number C622 Number Date of 1945 Referring Physician Age 72 year(s) Experimental Physicist Interpreting [facility] Needs to be Pre Physician [...] Ref Range Ejection Fraction Specimen Performing Laboratory [facility] ECHO [facility]ART[facility] Impressions Right Impression 1. The internal carotid [...] LAYO BOBO Date of Study 04/07/2017 GHAZALA [id number] Visit Number [id number] Female Accession Number [id number] of 1945 ReferringColby Saucedo MD Room Number C622 Physician SonographerSclaritza Kim, Physician , [facility] Procedure Type of Study: Cerebral: Carotid, [...] Study 04/07/2017 GHAZALA Age 72 Visit Number [id number] Gender Female Accession Number [id number] Date of 1945 Referring Colby Saucedo MD Room Number C622 Physician Experimental Physicist Manan Galan Interpreting Raz Kim, Physician , [...] interpreted as sinus rhythm. Rate is bradycardic. [place] is left. Clinical Impression: non-specific ECGECG reviewed and does not meet STEMI criteria. Patient tolerance: Patient tolerated the procedure well with no immediate complications * B-type Natriuretic Factor (BNP) (04/06/2017 9:14 PM) Component Value Ref Range BNP 193 (H) 0 - 100 pg/mL Specimen Performing [place] [address] * XR chest 1 view portable/bedside (04/06/2017 [...] MD Report Verified Date/Time:04/06/2017 20:52:45 Reading Location: [address] Consult Reading Room Procedure Note Interface, [...] Report Verified Date/Time: 04/06/2017 20:52:45 Reading Location: [facility] C013W Consult Reading Room * ECG 12 lead (04/06/2017 7:57 PM) Specimen Performing Laboratory GE [facility]USE Narrative Ventricular Rate 57 BPM Atrial Rate 57 BPM P-R Interval 164 ms QRS Duration 84 ms Q-T Interval 472 ms QTC Calculation(Bazett) 459 ms P [place] 40 degrees R [place] -46 degrees T [place] 24 degrees Sinus bradycardia Left axis deviation [...] 472 ms QTC Calculation(Bazett) 459 ms P [place] 40 degrees R [place] -46 degrees T [place] 24 degrees Sinus bradycardia Left axis deviation [...]
--- OUTSIDE RECORDS SUMMARY | 2017-11-09 07:25 | XMS REPORT | Clinical Summary ---
Author Author [facility] Address Unknown Phone Unavailable Care Team Providers Care Textile Technical Officer Name Role Phone Arsen Baeza MD PCP [...] Secondary hypertension; Renal insufficiency; Dizziness, nonspecific 03/30/2017 [facility] General Internal Medicine Andreas Herrera MD Urinary [...] Taken Blood Pressure 128/62 07/24/2017 10:41 AM DINING ROOM ATTENDANT Pulse 72 07/24/2017 10:41 AM DINING ROOM ATTENDANT Temperature 36.3 C (97.4 F) 07/24/2017 7:51 AM DINING ROOM ATTENDANT Respiratory Rate 17 07/24/2017 7:51 AM DINING ROOM ATTENDANT Oxygen Saturation 96% 07/24/2017 7:51 AM DINING ROOM ATTENDANT Inhaled Oxygen - - Concentration Weight 94.8 kg (208 lb 15.9 oz) 07/23/2017 4:32 AM DINING ROOM ATTENDANT Height 160 cm (5' 2.99") 07/23/2017 4:32 AM DINING ROOM ATTENDANT Body Mass Index 37.03 07/23/2017 4:32 AM DINING ROOM ATTENDANT Plan of Treatment Health Maintenance Due Date Last Done Comments COLON CANCER SCREENING 1997 SHINGRIX VACCINE (#1) 1997 ZOSTER VACCINE 2007 PNEUMOCOCCAL 2012 POLYSACCHARIDE VACCINE AGE 65 AND OVER INFLUENZA VACCINE 01/19/2018 03/18/2017 BREAST CANCER SCREENING 06/18/2018 06/18/2016 PNEUMOCOCCAL-13 Completed 03/18/2017 Implants Implanted Type Area Field Inspector Device Expiration Model / Identifier Date Serial / Lot Ports Ports Procedures Procedure Name Priority Date/Time Associated Diagnosis Comments ECHOCARDIOGRAM 2D Routine 07/23/2017 Results for this COMPLETE W MMODE SPECTRAL 4:49 PM DINING ROOM ATTENDANT procedure are in the COLOR DOPPLER (54968) results section. [facility], E/M Routine 03/30/2017 Results for this 30-74 MINUTES 10:03 AM CDT procedure are in the results section. ECHOCARDIOGRAM 2D Routine 03/18/2017 Results for this COMPLETE W MMODE SPECTRAL 11:15 AM CDT procedure are in the COLOR DOPPLER (25201) results section. after 11/08/2016 Results * Estimated [...] and Americans. Specimen Performing Laboratory Plasma specimen [facility] DEPARTMENT OF PATHOLOGY AND GENOMIC MEDICINE [address] [place] [address] * CBC with platelet and differential (07/24/2017 [...] - 1.0 % Specimen Performing Laboratory Blood [facility] DEPARTMENT OF PATHOLOGY AND GENOMIC MEDICINE [address] [place] [address] * Basic metabolic panel (07/24/2017 9:07 AM) [...] 10.7 mg/dL Specimen Performing Laboratory Plasma specimen [facility] DEPARTMENT OF PATHOLOGY AND GENOMIC MEDICINE [address] [place] [address] * POC glucose (07/24/2017 6:16 AM) Only the most recent of 33 results within the time period is included. Component Value Ref Range POC glucose 272 (H) 65 - 100 mg/dL Comment: Meter ID: [id number] Detonator Assembler: Shwetha Prince Specimen Performing Laboratory [facility] DEPARTMENT OF PATHOLOGY AND GENOMIC MEDICINE [address] [place] [address] * Echocardiogram complete w contrast and 3D [...] R1 5.56 Specimen Performing Laboratory [facility] [address] [facility] [place] [address] Narrative The left ventricle chamber size is [...] ED Physician in the absence of a block captain: yes Previous ECG: Previous ECG:Unavailable Interpretation: Interpretation: [...] Site: Clean catch Specimen Performing Laboratory Urine [facility] DEPARTMENT OF PATHOLOGY AND GENOMIC MEDICINE [address] [place] [address] * Urine culture (07/23/2017 1:40 PM) Only the most recent of 3 results within the time period is included. Component Value Ref Range Urine culture isolate Streptococcus group B 10-1 cfu/ml (A) Comment: Specimen Information Specimen Source: Urine Specimen Site: Clean catch Urine culture isolate Mixed Gram positive faina 10-3 cfu/ml (A) Specimen Performing Laboratory Urine [facility] DEPARTMENT OF PATHOLOGY AND GENOMIC MEDICINE [address] [place] [address] * Urinalysis screen and microscopy, with reflex [...] UA 3 /LPF Specimen Performing Laboratory Urine [facility] DEPARTMENT OF PATHOLOGY AND GENOMIC MEDICINE [address] [place] [address] * Prothrombin time with INR (07/23/2017 4:26 [...] values over 4.0. Specimen Performing Laboratory Blood [facility] DEPARTMENT OF PATHOLOGY AND GENOMIC MEDICINE [address] [place] [address] * Hemoglobin A1c (07/23/2017 4:26 AM) Only [...] indicated. (A DA94) Specimen Performing Laboratory Blood [facility] DEPARTMENT OF PATHOLOGY AND GENOMIC MEDICINE [address] [place] [address] * Lipid panel (07/23/2017 4:26 AM) Component [...] (>=200 mg/dL) Specimen Performing Laboratory Plasma specimen [facility] DEPARTMENT OF PATHOLOGY AND GENOMIC MEDICINE [address] [place] [address] * Troponin (07/23/2017 12:22 AM) Only the [...] myocardial injury. Specimen Performing Laboratory Plasma specimen [facility] DEPARTMENT OF PATHOLOGY AND GENOMIC MEDICINE [address] [place] [address] * CT Head Wo Contrast (07/22/2017 9:46 PM) Only the most recent of 2 results within the time period is included. Specimen Performing Laboratory [facility] [address] [place] [address] Narrative EXAMINATION: CT HEAD WO CONTRAST CLINICAL [...] detailed above with no acute intracranial abnormality. [facility]-[id number] Procedure Note Interface, Radiology Results Incoming - 07/22/2017 9:56 PM DINING ROOM ATTENDANT EXAMINATION: CT HEAD WO CONTRAST CLINICAL HISTORY: [...] detailed above with no acute intracranial abnormality. [facility]-[id number] * XR Chest 2 Vw (07/22/2017 9:25 PM) Only the most recent of 2 results within the time period is included. Specimen Performing Laboratory [facility] [address] [place] [address] Narrative EXAMINATION:XR CHEST 2 VW CLINICAL HISTORY:dizziness COMPARISON:03/30/2017 IMPRESSION: Right chest port is again seen with tip projecting over superior vena cava. No consolidations, effusions, or pneumothorax. Cardiomediastinal silhouette is within normal limits. No acute osseous abnormalities. Mild degenerative change of the lower thoracic spine. [facility]-[id number] Procedure Note Interface, Radiology Results Incoming - 07/22/2017 9:35 PM DINING ROOM ATTENDANT EXAMINATION: XR CHEST 2 VW CLINICAL HISTORY: dizziness COMPARISON: 03/30/2017 IMPRESSION: Right chest port is again seen with tip projecting over superior vena cava. No consolidations, effusions, or pneumothorax. Cardiomediastinal silhouette is within normal limits. No acute osseous abnormalities. Mild degenerative change of the lower thoracic spine. [facility]-[id number] * B natriuretic peptide (07/22/2017 7:18 PM) Only the most recent of 3 results within the time period is included. Component Value Ref Range BNP 140 (H) 0 - 100 pg/mL Specimen Performing Laboratory Blood [facility] DEPARTMENT OF PATHOLOGY AND GENOMIC MEDICINE [address] [facility] [place] [address] * Comprehensive metabolic panel (07/22/2017 7:18 PM) [...] 1.2 mg/dL Specimen Performing Laboratory Plasma specimen [facility] DEPARTMENT OF PATHOLOGY AND GENOMIC MEDICINE [address] [place] [address] * ECG 12 lead (07/22/2017 6:20 PM) Only the most recent of 4 results within the time period is included. Component Value Ref Range Ventricular rate 87 Atrial rate 87 AK interval 148 QRSD interval 82 QT interval 476 QTC interval 572 P axis 1 74 QRS axis 1 -76 T wave axis 43 EKG impression Normal sinus rhythm-Left axis deviation-Nonspecific ST and T wave abnormality- Specimen Performing Laboratory [facility] [address] [place] [address] * Hepatic function panel (04/02/2017 5:14 AM) [...] 37 U/L Specimen Performing Laboratory Plasma specimen [facility] DEPARTMENT OF PATHOLOGY AND GENOMIC MEDICINE [address] [place] [address] * NM Lung Ventilation Perfusion (04/01/2017 9:38 PM) Specimen Performing Laboratory [facility] [address] [place] [address] Narrative PROCEDURE:NM LUNG VENTILATION PERFUSION INDICATION:Dyspnea. COMPARISON:Prior [...] probability for PE. 2.No change from 09/22/16. [facility]-[id number] Procedure Note Interface, Radiology Results Incoming - [...] for PE. 2. No change from 09/22/16. [facility]-[id number] * CT Chest Wo Contrast (04/01/2017 5:53 PM) Specimen Performing Laboratory [facility] [address] [place] [address] Narrative Study:CT CHEST WO CONTRAST History: pulmonary [...] pulmonary nodule in the right upper lobe. [facility]-[id number] Procedure Note [facility], Radiology Results Incoming - 04/01/2017 6:20 PM [...] pulmonary nodule in the right upper lobe. [facility]-[id number] * D-dimer (04/01/2017 11:22 AM) Component Value [...] sepsis, and malignancies. Specimen Performing Laboratory Blood [facility] DEPARTMENT OF PATHOLOGY AND GENOMIC MEDICINE [address] [place] [address] * Vancomycin level, trough (04/01/2017 11:22 AM) Component Value Ref Range Vancomycin, trough 18.4 10.0 - 20.0 ug/mL Comment: Therapeutic Ranges: Peak 30.0 - 40.0 ug/mL Trough 10.0 - 20.0 ug/mL Specimen Performing Laboratory Blood [facility] DEPARTMENT OF PATHOLOGY AND GENOMIC MEDICINE [address] [place] [address] * Consult to Sepsis Response Team (03/30/2017 [...] (03/30/2017 9:05 AM) Specimen Performing Laboratory [facility] [address] [place] [address] Narrative EXAMINATION:XR CHEST 1 VW PORTABLE CLINICAL [...] The patient is status post median sternotomy. [facility]-[id number] Procedure Note Hm Interface, Radiology Results Incoming [...] The patient is status post median sternotomy. [facility]-[id number] * Blood culture, aerobic & anaerobic (03/30/2017 8:09 AM) Only the most recent of 2 results within the time period is included. Component Value Ref Range Blood culture isolate No growth after 5 days of incubation. Comment: Specimen Information Specimen Source: Blood Specimen Site: Peripheral Arm Right Specimen Performing Laboratory Blood [facility] DEPARTMENT OF PATHOLOGY AND GENOMIC MEDICINE [address] [place] [id number] * Partial thromboplastin time, activated (03/30/2017 8:09 [...] validate this result. Specimen Performing Laboratory Blood [facility] DEPARTMENT OF PATHOLOGY AND GENOMIC MEDICINE [address] [place] [address] * Lipase level (03/30/2017 8:09 AM) Component Value Ref Range Lipase 240 (H) 65 - 230 U/L Specimen Performing Laboratory Plasma specimen [facility] DEPARTMENT OF PATHOLOGY AND GENOMIC MEDICINE [address] [place] [address] * Lactic acid level (03/30/2017 8:09 AM) Component Value Ref Range Lactic acid 1.1 0.5 - 2.2 mmol/L Specimen Performing Laboratory Blood [facility] DEPARTMENT OF PATHOLOGY AND GENOMIC MEDICINE [address] [place] [address] * Venous blood gas (03/30/2017 8:09 AM) Component Value Ref Web Mobile Designer [facility] Collection site RAC O2 therapy ROOM AIR [...] - 16.0 g/dL Specimen Performing Laboratory Blood [facility] DEPARTMENT OF PATHOLOGY AND GENOMIC MEDICINE [address] [place] [address] * Creatine kinase, total (CPK) (03/30/2017 8:09 AM) Component Value Ref Range Creatine kinase 65 61 - 224 U/L Specimen Performing Laboratory Plasma specimen [facility] DEPARTMENT OF PATHOLOGY AND GENOMIC MEDICINE [address] [place] [address] * Echocardiogram complete w contrast and 3D [...] R1 5.60 Specimen Performing Laboratory [facility] [address] [place] [address] Narrative The left ventricle chamber size is normal. Left Ventricular ejection fraction is 60 - 65%. Spectral Doppler shows impaired relaxation pattern of left ventricular diastolic filling. The anterior leaflet is moderate thickened and/or calcified. There is a mild prolapse of the mitral valve. Mild mitral valve stenosis. * MRI Brain Wo Contrast (03/17/2017 4:29 PM) Specimen [facility] [address] [place] [address] Narrative EXAMINATION:MRI BRAIN WO CONTRAST CLINICAL HISTORY: [...] of acute infarction, hemorrhage, or mass lesion. [id number] Procedure Note Hm Interface, Radiology Results Incoming [...] of acute infarction, hemorrhage, or mass lesion. [id number] * Beta hydroxybutyrate (03/11/2017 5:58 PM) Component Value Ref Range Beta hydroxybutyrate 0.10 0.02 - 0.27 mmol/L Specimen Performing Laboratory Blood [facility] DEPARTMENT OF PATHOLOGY AND GENOMIC MEDICINE [address] [place] [address] after 11/08/2016 Insurance Payer Benefit Subscriber ID Type Phone Address Plan / Group AETNA MEDICARE AETNA xxxxxxxx HMO MEDICARE HMO/PPO [facility] [place] [address]
--- OUTSIDE RECORDS SUMMARY | 2017-11-09 07:26 | XMS REPORT ---
Author Author Admin, [facility] [place] Address Unknown Phone Unavailable Allergies, Adverse Reactions, [...] Pariani DO Dizziness and giddiness Hx of ID 412 Active Marianne Abad Pariani DO Old myocardial infarction EKG: ant/inf ID Secondary hyperparathyroidism, renal origin 588.81 Active 03/07 [...] Vascular Surgery: Dr. Salamanca Insomnia 780.52 Active Mraianne Abad Pariani DO Insomnia, unspecified Memory impairment [...] Unspecified vitamin B deficiency 10/05 Vit B 91=082 s/p sq IM inj Heme: Dr. Camilo [...] Coronary atherosclerosis of unspecified type of vessel, [place] or graft s/p 4 v Bypass 2007 2 stents 2007, 2008 Cardiology: Dr. Elizabeth Diabetes mellitus type II 250.00 Active Marianne Baeza DO Diabetes mellitus without mention of [...] DO Foot infection, left 686.9 Inactive Marianne Aabd Pariani DO Unspecified local infection of skin [...] Name NDC Status Provider Patient Instruction ERGOCALCIFEROL 96718 UNIT ORAL CAPSULE 1 tab By Mouth Every wk ERGOCALCIFEROL 49306295330 Active Marianne Abad Pariani DO Active TRAMADOL HCL 50 MG ORAL TABLET take 1/2 - 1 tab By Mouth Twice a Day As Needed pain TRAMADOL HCL 49845572964 Active Marianne Baeza DO Active HUMULIN R U-500 KWIKPEN 500 UNIT/ML SUBCUTANEOUS SOLUTION PEN-INJECTOR 35 units Twice a Day SQ INSULIN REGULAR HUMAN 50669099719 Active Marianne Baeza DO Active ESCITALOPRAM OXALATE 5 MG ORAL TABLET take 1 tab By Mouth Every day for depression/anxiety ESCITALOPRAM OXALATE 48232785929 Active Marianne Baeza DO Active LORAZEPAM 0.5 MG ORAL TABLET take 1-2 tabs By Mouth As Needed As Needed anxiety LORAZEPAM 44536115098 Active Naomie Pelaez CPHT Active FISH OIL 1000 MG ORAL CAPSULE 1 tab By Mouth Every day OMEGA- 3 FATTY ACIDS 80235036160 Active Marianne Baeza DO Active CLOPIDOGREL BISULFATE 75 MG ORAL TABLET TK 1 T PO D CLOPIDOGREL BISULFATE 46124874484 Active Marianne Baeza DO Active NIFEDIPINE ER 60 MG ORAL TABLET EXTENDED RELEASE 24 HOUR Take one tab By Mouth Every Day for blood pressure NIFEDIPINE 27645731942 Active Marianne Baeza DO Active BACLOFEN 10 MG ORAL TABLET take 1/2 tab By Mouth Three Times a Day for muscle spasm BACLOFEN 36028577317 Active Marianne Baeza DO Active FUROSEMIDE 20 MG ORAL TABLET take 1 tab By Mouth As Needed LE swelling 08/12 FUROSEMIDE 34297219841 Active Marianne Baeza DO Active TRADJENTA 5 MG ORAL TABLET take 1 tab By Mouth Every day LINAGLIPTIN 22037966841 Active Naomie Pelaez CPHT Active BD PEN NEEDLE SHORT U/F 31G X 8 MM Use to dose insulin INSULIN PEN NEEDLE 01691215338 Active Naomie Pelaez CPHT Active ROLLER WALKER use when ambulating MISC. DEVICES 54490761017 Active Marianne Baeza DO Active PROAIR HFA 108 (90 Base) MCG/ACT INHALATION AEROSOL SOLUTION use Every 4-6 hrs As Needed SOB ALBUTEROL SULFATE 13709599714 Active Marianne Baeza DO Active ASPIRIN 325 MG ORAL TABLET take 1 tab By Mouth Every day ASPIRIN 82363518875 Active Marianne Baeza DO Active ATORVASTATIN CALCIUM 20 MG ORAL TABLET take 1 tab By Mouth Every at bedtime for cholesterol ATORVASTATIN CALCIUM 44646426133 Active Marianne Baeza DO Active BENAZEPRIL HCL 40 MG ORAL TABLET 1 tab By Mouth Every day BENAZEPRIL HCL 07796132866 Active Marianne Baeza DO Active CARVEDILOL 25 MG ORAL TABLET take 2 tab By Mouth bid CARVEDILOL 11953492159 Active Marianne Baeza DO Active FUROSEMIDE 40 MG ORAL TABLET take 1 tab By Mouth Every day FUROSEMIDE 13425936168 Active Kimberli Manzo NURSE PRACTITIONER PER DIEM Active GABAPENTIN 300 MG ORAL CAPSULE take 1 tab By Mouth bid GABAPENTIN 05504079536 Active Marianne Baeza DO Active ISOSORBIDE MONONITRATE ER 60 MG ORAL TABLET EXTENDED RELEASE 24 HOUR 1 tab By Mouth Every day ISOSORBIDE MONONITRATE 42428437180 Active Marianne Baeza DO Active METOCLOPRAMIDE HCL 5 MG ORAL TABLET take 1 tab By Mouth Every ac (30 min before meal) and hs METOCLOPRAMIDE HCL 05212533826 Active Naomie Pelaez FILM PROJECTOR OPERATOR Active CEPHALEXIN 500 MG ORAL CAPSULE Take one capsule Twice a Day for infection of toe CEPHALEXIN 500 MG ORAL CAPSULE 099514 CEPHALEXIN Inactive VITAMIN D3 400 UNIT ORAL CAPSULE 1 tab By Mouth Every day VITAMIN D3 400 UNIT ORAL CAPSULE CHOLECALCIFEROL Inactive VITAMIN D3 3000 UNIT ORAL TABLET 1 tab By Mouth Every day VITAMIN D3 3000 UNIT ORAL TABLET CHOLECALCIFEROL Inactive FAMCICLOVIR 500 MG ORAL TABLET take 1 tablet By Mouth Every 8 hrs FAMCICLOVIR 500 MG ORAL TABLET 109265 FAMCICLOVIR Inactive LIDOCAINE 5 % EXTERNAL OINTMENT apply to affected area Twice a Day-tid 07/27 LIDOCAINE 5 % EXTERNAL OINTMENT 0019016 LIDOCAINE Inactive TYLENOL WITH CODEINE #3 TABLET Take one tab every 6 hours as needed for pain TYLENOL WITH CODEINE #3 TABLET ACETAMINOPHEN- CODEINE TABS Inactive ZOFRAN 4 MG ORAL TABLET 1-2 tablets by mouth every 8 hours as needed for nausea ZOFRAN 4 MG ORAL TABLET 882059 ONDANSETRON HCL Inactive HUMALOG KWIKPEN 100 UNIT/ML SUBCUTANEOUS SOLUTION PEN-INJECTOR sc per SS with meals HUMALOG KWIKPEN 100 UNIT/ML SUBCUTANEOUS SOLUTION PEN-INJECTOR INSULIN LISPRO Inactive ERGOCALCIFEROL 77587 UNIT ORAL CAPSULE take 1 tab Every wk X 12 wks ERGOCALCIFEROL 57562 UNIT ORAL CAPSULE 4649184 ERGOCALCIFEROL Inactive HYDRALAZINE HCL 10 MG ORAL TABLET take 1 tab By Mouth tid HYDRALAZINE HCL 10 MG ORAL TABLET 477481 HYDRALAZINE HCL Inactive ZETIA 10 MG ORAL TABLET take 1 tab By Mouth Every day ZETIA 10 MG ORAL TABLET 751131 EZETIMIBE Inactive ALEVE TABLET 1-2 tabs As Needed pain ALEVE TABLET NAPROXEN SODIUM TABS Inactive AMLODIPINE BESYLATE 10 MG ORAL TABLET take 1 tab By Mouth Every day AMLODIPINE BESYLATE 10 MG ORAL TABLET 107650 AMLODIPINE BESYLATE Inactive CYCLOBENZAPRINE HCL 10 MG ORAL TABLET take 1 tab By Mouth As Needed CYCLOBENZAPRINE HCL 10 MG ORAL TABLET 756239 CYCLOBENZAPRINE HCL Inactive LEVEMIR FLEXTOUCH 100 UNIT/ML SUBCUTANEOUS SOLUTION PEN-INJECTOR take 50 U By Mouth Twice a Day, titrate up to a fsg goal ~ 140 LEVEMIR FLEXTOUCH 100 UNIT/ML SUBCUTANEOUS SOLUTION PEN-INJECTOR INSULIN DETEMIR Inactive METFORMIN HCL 1000 MG ORAL TABLET 1 tab By Mouth bid METFORMIN HCL 1000 MG ORAL TABLET 982815 METFORMIN HCL Inactive CEPHALEXIN 500 MG ORAL CAPSULE Take one capsule Twice a Day for infection of toe CEPHALEXIN 04128352230 No Longer Active Marianne Barbosaani DO Active VITAMIN D3 400 UNIT ORAL CAPSULE 1 tab By Mouth Every day CHOLECALCIFEROL 23107014996 No Longer Active Marianne Abad Baeza DO Active VITAMIN D3 3000 UNIT ORAL TABLET 1 tab By Mouth Every day CHOLECALCIFEROL 16084846229 No Longer Active Marianne Abad Baeza DO Active FAMCICLOVIR 500 MG ORAL TABLET take 1 tablet By Mouth Every 8 hrs FAMCICLOVIR 79159111173 No Longer Active Marianne Abad Baeza DO Active LIDOCAINE 5 % EXTERNAL OINTMENT apply to affected area Twice a Day-tid 07/27 LIDOCAINE 21371384252 No Longer Active Marianne Abad Chelseydenilson DO Active PROMETHAZINE HCL 12.5 MG ORAL TABLET take 1-2 tablets Every 4-6 hrs As Needed nauea PROMETHAZINE HCL 48554517404 No Longer Active Marianne Abad Baeza DO Active TYLENOL WITH CODEINE #3 TABLET Take one tab every 6 hours as needed for pain ACETAMINOPHEN-CODEINE TABS 99279451089 No Longer Active Marianne Abad Chelseydenilson DO Active ZOFRAN 4 MG ORAL TABLET 1-2 tablets by mouth every 8 hours as needed for nausea ONDANSETRON HCL 35720936253 No Longer Active Marianne Bernardoish Chelseydenilson DO Active HUMALOG 100 UNIT/ML SUBCUTANEOUS SOLUTION sc per SS with meals and Every at bedtime INSULIN LISPRO 45996562085 No Longer Active Marianne Abad Baeza DO Active HUMALOG KWIKPEN 100 UNIT/ML SUBCUTANEOUS SOLUTION PEN-INJECTOR sc per SS with meals INSULIN LISPRO 09228626720 No Longer Active Marianne Abadberto Barbosaani DO Active NOVOLOG FLEXPEN 100 UNIT/ML SUBCUTANEOUS SOLUTION PEN-INJECTOR sc per SS with meals INSULIN ASPART 86848880498 No Longer Active Naomie Pelaez CPHT Active ERGOCALCIFEROL 53591 UNIT ORAL CAPSULE take 1 tab Every wk X 12 wks ERGOCALCIFEROL 44142986948 No Longer Active Marianne Abad Baeza DO Active HYDRALAZINE HCL 10 MG ORAL TABLET take 1 tab By Mouth tid HYDRALAZINE HCL 67819303002 No Longer Active Marianne Abad Barbosaani DO Active ZETIA 10 MG ORAL TABLET take 1 tab By Mouth Every day EZETIMIBE 41968356163 No Longer Active Marianne Abad Chelseydenilson DO Active ALEVE TABLET 1-2 tabs As Needed pain NAPROXEN SODIUM TABS 37100781223 No Longer Active Marianne Abad Baeza DO Active AMLODIPINE BESYLATE 10 MG ORAL TABLET take 1 tab By Mouth Every day AMLODIPINE BESYLATE 03921389993 No Longer Active Marianne Abad Barbosaani DO Active CYCLOBENZAPRINE HCL 10 MG ORAL TABLET take 1 tab By Mouth As Needed CYCLOBENZAPRINE HCL 08417615468 No Longer Active Marianne Abad Chelseydenilson DO Active LEVEMIR FLEXTOUCH 100 UNIT/ML SUBCUTANEOUS SOLUTION PEN-INJECTOR take 50 U By Mouth Twice a Day, titrate up to a fsg goal ~ 140 INSULIN DETEMIR 15338685065 No Longer Active Marianne Abad Baeza DO Active METFORMIN HCL 1000 MG ORAL TABLET 1 tab By Mouth bid METFORMIN HCL 88962381452 No Longer Active Marianne Abad Baeza DO Active SIMVASTATIN 40 MG ORAL TABLET take 1 tab By Mouth Every at bedtime SIMVASTATIN 71063618913 No Longer Active Naomie Pelaez [facility] Active Immunizations Vaccine Administration Date Value [...] ... - Lab reticulocyte count, blood, absolute 300831 CELLS/UL 10*6/mm3 90547-64587 Lab Report: URINALYSIS REFLEX - Urinalysis appearance, urine CLEAR CLEAR Lab Report: COMPREHENSIVE METABOLIC PANEL, CBC (INCLUDES DIFF/PLT), INNA ... - Chemistry globulins, serum, total 2.7 G/DL (CALC) g/dL 1.9-3.7 Lab Report: COMPREHENSIVE METABOLIC PANEL, CBC (INCLUDES DIFF/PLT), INNA ... - Hematology platelet count 228 THOUSAND/UL 10*3/mm3 009-310 9224/09/20 red blood cell distribution width 14.4 % [...] pg/mL 200-1100 Absolute Neutrophil count 4935 {Cells}/uL 2330-7945 Lab Report: URINALYSIS REFLEX - Urinalysis protein, [...] Correspondence: Pre-Visit Planning - CC care steam heating installer #1, name Lili Aragon Lab Report: COMPREHENSIVE [...] ... - Chemistry sodium, serum 126 mmol/L 672-790 3235/09/20 hemoglobin A1C, blood, as % of total [...] Provider Code Facility 00:32:20 CDT Est Patient Comprehensive-[id number] Marianne Abad Pariani DO [facility]-[id number] [facility] 21:21:28 CDT Ofc Vst, Est Level V Marianne Abad Pariani DO [facility]- 42908 [facility] 16:00:39 CDT Est Patient Detailed - [id number] Marianne Abad Pariani DO [facility]-31476 [facility] 00:09:50 CDT Ofc Vst, Est Level V Marianne Abad Pariani DO [facility]- [address]236 [facility] 23:16:00 CDT Est Patient Detailed - [id number] Marianne Abad Pariani DO [facility]-86973 [facility] 20:07:40 CDT Ofc Vst, Est Level V Marianne Abad Pariani DO [facility]- [address]98 [facility] 14:14:04 CDT Est Patient Detailed - [id number] Marianne Abad Pariani DO [facility]-54486 [facility] 23:17:07 PAINTER TUMBLING BARREL Ofc Vst, Est Level V Marianne Abad Pariani DO [facility]- [address] [facility] 23:49:16 PAINTER TUMBLING BARREL Ofc Vst, Est Level IV Marianne Abad Pariani DO CPT- 43445 [facility] 23:33:28 PAINTER TUMBLING BARREL Ofc Vst, Est Level V Marianne Abad Pariani DO CPT- 76520 [facility] 19:36:40 PAINTER TUMBLING BARREL Ofc Vst, Est Level IV Marianne Abad Pariani DO CPT- 54183 [facility] 22:25:43 PAINTER TUMBLING BARREL Ofc Vst, Est Level IV Marianne Abad Pariani DO CPT- 69707 [facility] 21:38:23 PAINTER TUMBLING BARREL Ofc Vst, New Level IV Marianne Abad Pariani DO CPT- 20037 [facility] Procedures Code Procedure Name Date Entry Date Standard Description CPT-50667 EKG - Tracing Only 21:21:28 CDT CPT-60423 EKG - Interpretation & Report Only 21:21:27 CDT CPT-85316 Urinalysis - Dip only - In House 16:04:03 CDT CPT-30208 Psychotherapy 30 (16-37*) min - 76624 (with patient and/or family member) 10:58:58 CDT CPT-55274 Diagnostic evaluation (no medical) - 41339 14:08:49 CDT CPT-48165 Glucose Stick 23:49:14 PAINTER TUMBLING BARREL CPT-39864 Glucose Stick 23:33:26 PAINTER TUMBLING BARREL CPT-87643 Glucose Stick 21:38:23 PAINTER TUMBLING BARREL
[2017-11-09] MEDS: INSULIN REGULAR, HUMAN 100 UNIT/1 ML 3ML VIAL SQ SCH ×4 (09:00→21:02)
[2017-11-09] MEDS: FAMOTIDINE 20 MG/2 ML VIAL IV SCH ×2 (09:10→21:01)
[2017-11-09] MEDS: CARVEDILOL 12.5 MG TAB PO SCH ×2 (09:10→16:37)
[2017-11-09] MEDS: CLOPIDOGREL BISULFATE 75 MG TAB PO SCH (09:10)
[2017-11-09] MEDS: ASPIRIN 325 MG TAB EC PO SCH (09:10)
[2017-11-09] MEDS: FUROSEMIDE INJ 10 MG/ML 4 ML VIAL IV SCH ×2 (09:17→21:01)
[2017-11-09] MEDS ORDERED: ISOSORBIDE MONO60 MG PO (11:36)
[2017-11-09] MEDS ORDERED: NOVOLOG MI100 UNIT/1 SC ×2 (11:36)
[2017-11-09] MEDS ORDERED: ARICEPT5 MG PO (11:36)
[2017-11-09] MEDS ORDERED: ASPIRIN325 MG PO (11:36)
[2017-11-09] MEDS ORDERED: NAMENDA10 MG PO (11:36)
[2017-11-09] MEDS ORDERED: ATORVASTATIN CA40 MG PO (11:36)
[2017-11-09] MEDS ORDERED: PREDNISONE5 MG PO (11:38)
[2017-11-09] MEDS: NITROGLYCERIN 2% OINT 1 GM PKT TOP SCH ×2 (11:56→18:06)
[2017-11-09 12:02] VITALS: BP 188/73
[2017-11-09] MEDS ORDERED: ACETAMINOPHEN 325 MG TAB PO PRN (12:30)
[2017-11-09] MEDS ORDERED: LORAZEPAM 0.5 MG TAB PO PRN (12:30)
[2017-11-09] MEDS ORDERED: ALBUTEROL/IPRATROPIUM 3 ML NEB NEB PRN (13:15)
[2017-11-09 13:40] LABS: CREATINE KINASE MB 2.1 ng/mL (0-5.0)
--- NOTE | 2017-11-09 14:41 | Consultation ---
DATE OF CONSULTATION: November 09, 2017 REASON FOR CONSULTATION: Ulceration, left foot. HISTORY OF PRESENT ILLNESS: Ms. Dooley is a pleasant, 72-year-old female who has a history of chronic ulcer off and on to the left foot. She follows up with Dr. Negar Brennan on an outpatient basis. Currently admitted for CHF and dyspnea with chest pain. She was found to have a lesion to the left foot, and I have been asked to follow up for the same in Dr. Brennan' absence. PAST MEDICAL HISTORY: Hypertension, diabetes, heart disease, CHF, chronic kidney disease, CAD, [place]. SURGICAL HISTORY: Multiple digital amputations. FAMILY HISTORY: Diabetes. SOCIAL HISTORY: No alcohol or illicit drug use. No smoking. REVIEW OF SYSTEMS: Otherwise negative at this point. PHYSICAL EXAMINATION VITAL SIGNS: Stable. She is afebrile. GENERAL: A and O x3. NAD. HEENT: Normocephalic, atraumatic, anicteric. ABDOMEN: Soft, nontender, nondistended. RESPIRATORY: Symmetrical expansion, no distress. PSYCHIATRIC: Normal affect. EXTREMITIES: Ulcerative lesion to the plantar aspect of the left foot, albeit to the digit. No signs of infection. The lesion itself is approximately 1 cm to 1.5 cm in diameter. Fibrotic tissue in the wound bed. ASSESSMENT: Patient with diabetic ulceration of the left foot, relatively stable. PLAN: Recommend offloading and local wound care. Orders were written for the same. Please see orders for details. Will continue to follow and monitor. Ultimately he may need perhaps an exostectomy in order to sustain or prevent further recurrences of the same. Job#: [id number]
[2017-11-09 14:45] VITALS: BP 188/73
[2017-11-09 16:21] VITALS: BP 145/69
[2017-11-09] MEDS: GABAPENTIN 300 MG CAP PO SCH (16:38)
--- NOTE | 2017-11-09 17:47 | Consultation ---
DATE OF CONSULTATION: November 09, 2017 CARDIOLOGY CONSULTATION ATTENDING PHYSICIAN: Dr. Edgar Bradshaw Thank you so much for asking me to see this nice lady again in consultation. Ms. Dooley is a pleasant, 72-year-old woman with multiple medical problems, who presented to the emergency room with a complaint of shortness of breath. HISTORY OF PRESENT ILLNESS: The patient reports she has not had any fever nor sore throat. She has noted some ankle edema, but has not checked any home blood pressure readings because she does not know where her blood pressure cuff is. PAST MEDICAL HISTORY: Long and complex. She has longstanding diabetes, hypertension, hyperlipidemia. She had coronary artery bypass graft surgery at the [facility] in 2007. She was later given a coronary stent. She had endometrial carcinoma with hysterectomy and chemotherapy in 1998. She had a remote cholecystectomy and has had ongoing wound care for foot ulcers. She reports she recently had a cast for her foot, which helped wound healing a lot. MEDICATIONS: Recent home medications include: 1. Aspirin 81 mg daily. 2. Atorvastatin 20 mg daily. 3. Carvedilol 12.5 mg b.i.d. 4. Plavix 75 mg daily. 5. Lexapro. 6. Fenofibrate 160 daily. 7. Furosemide 20 mg p.r.n. 8. Gabapentin 600 mg twice a day. 9. Tradjenta 5 mg daily. 10. Lisinopril 20 mg daily. 11. Lorazepam p.r.n. 12. Metoclopramide. 13. Simvastatin 40 mg daily. 14. Cardene 20 mg every 8 hours. She was hospitalized at [facility] in July of 2017 for chest discomfort at which time she had a Cardiolite that showed no evidence of any scar nor ischemia, and her ejection fraction was calculated at 54%. PHYSICAL EXAMINATION GENERAL: Pleasant woman who is alert and responsive. VITALS: Blood pressures 160/80. HEENT: Unremarkable. NECK: No jugular venous distention visible. THORAX: There is a healed midline sternotomy. A right subclavian Port-A-Cath. HEART: Sounds S1 and S2 are equal. No distinct murmurs. LUNGS: Faint bilateral wheezing. ABDOMEN: Protuberant. EXTREMITIES: Have 1+ pretibial edema. EKG on the chart shows sinus rhythm without ST or T wave changes. PERTINENT LABORATORY STUDIES: BUN of 33, creatinine 2.9, glucose 330. Hemoglobin 9.7, white count 10.0. ASSESSMENT 1. Clinical congestive heart failure with normal ejection fraction. Echocardiogram today shows moderate left ventricular hypertrophy, ejection fraction 58% with trace mitral regurgitation. No pericardial fluid and no shunt. 2. Advanced renal insufficiency, though numbers are similar to what she had in July. 3. Hypertension. May be malignant. She has not been monitoring her blood pressure at home. PLAN: Agree with diuresis. Will monitor blood pressure readings and help adjust medications with you. Thank you for asking me to see her in consultation. Job#: [id number]
[2017-11-09 20:00] VITALS: BP 171/72
[2017-11-09] MEDS ORDERED: NON-FORMULARY MEDICATION (Atorvastatin Calcium 40 MG) PO SCH (21:00)
[2017-11-09] MEDS: MEMANTINE 10 MG TAB PO SCH (21:01)
[2017-11-09] MEDS: ATORVASTATIN 40 MG TAB PO SCH (21:01)
[2017-11-09] MEDS: DONEPEZIL HCL 5 MG TAB PO SCH (21:01)
[2017-11-09 22:06] LABS: CREATINE KINASE MB 1.6 ng/mL (0-5.0)
[2017-11-09 22:35] VITALS: BP 171/72
[2017-11-10] VITALS (7 sets, daily range): BP systolic 113–189; BP diastolic 53–78
[2017-11-10] MEDS: NITROGLYCERIN 2% OINT 1 GM PKT TOP SCH ×2 (00:12→05:48)
[2017-11-10 07:11] LABS: BASOPHILS % 0.1 % (0.0-1.0); EOSINOPHILS # (AUTO) 0.5 (0.0-0.4); EOSINOPHILS % 5.9 % (0.0-6.0); HEMATOCRIT 26.3 % (34.2-44.1); HEMOGLOBIN 8.7 g/dL (12.0-16.0); LYMPHOCYTES # (AUTO) 1.9 (1.0-3.2); LYMPHOCYTES % 24.5 % (18.0-39.1); MEAN CORPUSCULAR HEMOGLOBIN 29.1 pg (28-32); MEAN CORPUSCULAR HGB CONC 33.1 g/dL (31-35); MONOCYTES # (AUTO) 0.6 (0.2-0.8); MONOCYTES % 7.9 % (4.4-11.3); NEUTROPHILS # (AUTO) 4.8 (2.1-6.9); NEUTROPHILS % 61.3 % (38.7-80.0); PLATELET COUNT 193 x10e3/uL (140-360); RED BLOOD COUNT 2.99 x10e6/uL (3.6-5.1); RED CELL DISTRIBUTION WIDTH 14.6 % (11.7-14.4)
[2017-11-10 07:43] LABS: ALBUMIN 2.3 g/dL (3.5-5.0); ALBUMIN/GLOBULIN RATIO 0.9 (0.8-2.0); ANION GAP 13.4 mmol/L (8-16); CALCIUM 8.4 mg/dL (8.4-10.2); CHOL/HDL RATIO 6.1 (3.0-3.6); CREATININE, SERUM 3.27 mg/dL (0.57-1.11); POTASSIUM 4.4 mmol/L (3.5-5.1)
[2017-11-10 08:00] LABS: FOLATE 11.6 ng/mL (7.0-15.4)
[2017-11-10 08:01] LABS: MAGNESIUM 1.3 MG/DL (1.3-2.1)
[2017-11-10 08:23] LABS: FERRITIN 191.91 ng/mL (4.63-204.00)
[2017-11-10] MEDS: INSULIN REGULAR, HUMAN 100 UNIT/1 ML 3ML VIAL SQ SCH (08:51)
[2017-11-10] MEDS: ASPIRIN 325 MG TAB EC PO SCH (08:52)
[2017-11-10] MEDS: FAMOTIDINE 20 MG/2 ML VIAL IV SCH ×2 (08:52→20:26)
[2017-11-10] MEDS: MUPIROCIN 2% OINT 22 GM TUBE TOP SCH (08:52)
[2017-11-10] MEDS: GABAPENTIN 300 MG CAP PO SCH ×2 (08:52→17:15)
[2017-11-10] MEDS: NIFEDIPINE CR 30 MG TAB PO SCH (08:52)
[2017-11-10] MEDS: CARVEDILOL 12.5 MG TAB PO SCH ×2 (08:52→17:15)
[2017-11-10] MEDS: FUROSEMIDE INJ 10 MG/ML 4 ML VIAL IV SCH ×2 (08:52→21:00)
[2017-11-10] MEDS: CLOPIDOGREL BISULFATE 75 MG TAB PO SCH (08:52)
[2017-11-10] MEDS: ESCITALOPRAM OXALATE 10 MG TAB PO SCH (08:52)
[2017-11-10] MEDS: ISOSORBIDE MONONITRATE 30 MG TAB CR PO SCH (08:52)
[2017-11-10] MEDS ORDERED: NON-FORMULARY MEDICATION (Isosorbide Mononitrate (Isosorbide Mononitrate Er) 60 MG) PO SCH (09:00)
[2017-11-10] MEDS: MECLIZINE HCL 12.5 MG TAB PO SCH (10:18)
[2017-11-10] MEDS: PREDNISONE 5 MG TAB PO SCH (10:18)
[2017-11-10] MEDS: CYANOCOBALAMIN 1,000 MCG TAB PO SCH (10:18)
[2017-11-10] MEDS: CLONIDINE HCL 0.1 MG TAB PO SCH ×2 (10:59→17:15)
[2017-11-10] MEDS: INSULIN LISPRO 100 UNIT/1 ML 3ML VIAL SQ SCH ×3 (12:20→21:20)
[2017-11-10] MEDS: ATORVASTATIN 40 MG TAB PO SCH (21:05)
[2017-11-10] MEDS: MEMANTINE 10 MG TAB PO SCH (21:05)
[2017-11-10] MEDS: DONEPEZIL HCL 5 MG TAB PO SCH (21:10)
[2017-11-11] VITALS: BP 118/56
[2017-11-11 04:00] VITALS: BP 134/60
[2017-11-11 07:07] LABS: BASOPHILS % 0.1 % (0.0-1.0); EOSINOPHILS # (AUTO) 0.3 (0.0-0.4); EOSINOPHILS % 3.1 % (0.0-6.0); HEMATOCRIT 24.2 % (34.2-44.1); HEMOGLOBIN 8.1 g/dL (12.0-16.0); LYMPHOCYTES # (AUTO) 2.4 (1.0-3.2); LYMPHOCYTES % 29.7 % (18.0-39.1); MEAN CORPUSCULAR HEMOGLOBIN 29.2 pg (28-32); MEAN CORPUSCULAR HGB CONC 33.5 g/dL (31-35); MEAN CORPUSCULAR VOLUME 87.4 fL (81-99); MONOCYTES # (AUTO) 0.5 (0.2-0.8); MONOCYTES % 6.5 % (4.4-11.3); NEUTROPHILS # (AUTO) 4.9 (2.1-6.9); NEUTROPHILS % 60.2 % (38.7-80.0); PLATELET COUNT 190 x10e3/uL (140-360); RED BLOOD COUNT 2.77 x10e6/uL (3.6-5.1); RED CELL DISTRIBUTION WIDTH 14.2 % (11.7-14.4)
[2017-11-11 07:34] LABS: CALCIUM 8.1 mg/dL (8.4-10.2); CREATININE, SERUM 3.83 mg/dL (0.57-1.11); MAGNESIUM 1.6 MG/DL (1.3-2.1)
[2017-11-11 07:50] VITALS: BP 134/60
[2017-11-11 08:08] VITALS: BP 128/58
[2017-11-11] MEDS: ASPIRIN 325 MG TAB EC PO SCH (08:47)
[2017-11-11] MEDS: MECLIZINE HCL 12.5 MG TAB PO SCH (08:47)
[2017-11-11] MEDS: ESCITALOPRAM OXALATE 10 MG TAB PO SCH (08:47)
[2017-11-11] MEDS: FUROSEMIDE INJ 10 MG/ML 4 ML VIAL IV SCH (08:47)
[2017-11-11] MEDS: FAMOTIDINE 20 MG/2 ML VIAL IV SCH (08:47)
[2017-11-11] MEDS: CLONIDINE HCL 0.1 MG TAB PO SCH (08:47)
[2017-11-11] MEDS: ISOSORBIDE MONONITRATE 30 MG TAB CR PO SCH (08:47)
[2017-11-11] MEDS: INSULIN LISPRO 100 UNIT/1 ML 3ML VIAL SQ SCH ×2 (08:47→12:13)
[2017-11-11] MEDS: CARVEDILOL 12.5 MG TAB PO SCH (08:47)
[2017-11-11] MEDS: GABAPENTIN 300 MG CAP PO SCH (08:48)
[2017-11-11] MEDS: PREDNISONE 5 MG TAB PO SCH (08:48)
[2017-11-11] MEDS: CYANOCOBALAMIN 1,000 MCG TAB PO SCH (08:48)
[2017-11-11] MEDS: NIFEDIPINE CR 30 MG TAB PO SCH (08:48)
[2017-11-11] MEDS: CLOPIDOGREL BISULFATE 75 MG TAB PO SCH (08:48)
[2017-11-11] MEDS: MUPIROCIN 2% OINT 22 GM TUBE TOP SCH (09:00)
[2017-11-11] MEDS ORDERED: PREDNISONE 5 MG TAB PO SCH (09:00)
[2017-11-11 12:09] VITALS: BP 104/49
[2017-11-11] MEDS ORDERED: FUROSEMIDE40 MG PO (13:26)
[2017-11-11 16:00] VITALS: BP 116/61
--- NOTE | 2017-11-11 20:02 | Discharge Summary ---
ADMISSION DIAGNOSES 1. Congestive heart failure exacerbation. 2. Hypertension. 3. Type 2 diabetes. 4. Depression, anxiety. 5. Dementia. 6. Neuropathy. 7. Anemia. 8. Chronic kidney disease 4. 9. Left great toe wound with left medial ankle wound. DISCHARGE DIAGNOSES 1. Congestive heart failure exacerbation. 2. Hypertension. 3. Type 2 diabetes. 4. Depression, anxiety. 5. Dementia. 6. Neuropathy. 7. Anemia. 8. Chronic kidney disease 4. 9. Left great toe wound with left medial ankle wound. HISTORY: The patient has a history of type 2 diabetes, hypertension, chronic kidney disease 4, CAD, depression, anxiety, hyperlipidemia, neuropathy and dementia. A surgical history of CABG in 2007, coronary stents in 2007 and 2008, cholecystectomy, appendectomy, hysterectomy and endometrial cancer. HOSPITAL COURSE: This 72-year-old female complains of shortness of breath, orthopnea and wheezing. She takes Lasix as needed for edema, but has not taken it in at least 2 weeks. On admission, the patient was started on Lasix IV. An echo was done which showed moderate left ventricular hypertrophy with EF between 50% and 55%, right ventricular systolic function is mildly impaired. Mild aortic valve sclerosis without stenosis. Mild to moderate mitral regurgitation. Moderate mitral annular calcification. Mild to moderate tricuspid regurg and trace pulmonic regurg. The patient was resumed on home medicine including Coreg, Imdur, Nifedipine. Her BNP was monitored. On admission, the BNP was 1123. Troponins were negative. The patient was resumed on sliding scale insulin, lorazepam, Lexapro, Aricept, Namenda, gabapentin, all home medications. Her A1c was checked which was 8.9. After about 2 days of diuresing, the patient was much better, off oxygen, no more wheezing, ready to go home. At the time of discharge, her WBC was 8.1, hemoglobin 8, sodium 139, potassium 5.0, creatinine ____, BUN 48. GFR of 12. BNP was 346. The patient was stopped on her 40 mg Lasix p.r.n. and was started on 20 of [address] daily per Dr. Bradshaw's request. She will follow up with Dr. Bradshaw in just a few days and follow up with Dr. Kiser a few days after that. She is feeling much better and ready to go home. Daughter is at the bedside and agrees with plan as well. Dictated by: Sunita García, ROOM MAID TONG BRADSHAW MD Job#: [id number] [facility]
== END 2017-11-11 16:26 | disposition home or self-care (01) | DRG 291 ==
LOC: ER 04:26 → ERHOLD 07:22 → MED/SURG 09:38
PROVIDERS: ADMIT Internal Medicine; ATTEND Internal Medicine
DX: I13.0 Hypertensive heart and chronic kidney disease with heart failure and stage 1 through stage 4 chronic kidney disease, or unspecified chronic kidney disease (principal); I50.33 Acute on chronic diastolic (congestive) heart failure; N18.4 Chronic kidney disease, stage 4 (severe); L97.429 Non-pressure chronic ulcer of left heel and midfoot with unspecified severity; E11.22 Type 2 diabetes mellitus with diabetic chronic kidney disease; E11.40 Type 2 diabetes mellitus with diabetic neuropathy, unspecified; D64.9 Anemia, unspecified; F03.90 Unspecified dementia, unspecified severity, without behavioral disturbance, psychotic disturbance, mood disturbance, and anxiety; I25.10 Atherosclerotic heart disease of native coronary artery without angina pectoris; Z95.1 Presence of aortocoronary bypass graft; Z95.5 Presence of coronary angioplasty implant and graft; E11.621 Type 2 diabetes mellitus with foot ulcer; Z79.82 Long term (current) use of aspirin; Z79.899 Other long term (current) drug therapy; I25.2 Old myocardial infarction; I08.3 Combined rheumatic disorders of mitral, aortic and tricuspid valves; Z79.4 Long term (current) use of insulin
CPT/HCPCS: 36415; 71045; 80048; 80053; 80061; 81001; 82550; 82553; 82607; 82728; 82746; 82948; 83036; 83540; 83735; 83880; 84466; 84484; 85025; 85610; 85730; 87040; 87086; 93005; 93306; 94640; 99284; J1940; J2270; J7512

== ENCOUNTER 2018-10-31 13:44 | Inpatient (IN) | payer MEDICARE ==
[~2018-10-31] VITALS: Ht 175.3 cm; Wt 59.4 kg
[~2018-10-31 13:44] MED LIST changes: +ARICEPT5 MG PO; +ASPIRIN325 MG PO; +ATORVASTATIN CA40 MG PO; +ISOSORBIDE MONO60 MG PO; +NAMENDA10 MG PO; +NOVOLOG MI100 UNIT/1 SC; +PREDNISONE5 MG PO
--- OUTSIDE RECORDS SUMMARY | 2018-10-31 13:46 | XMS REPORT | Clinical Summary ---
Author Author [facility] Address Unknown Phone Unavailable Care Team Providers Care Supervisor Malted Milk Name Role Phone Abad Baeza MD PCP Allergies Comments Active Allergy Reactions Severity Noted Date Hydralazine 07/08/2016 Sulfa (Sulfonamide 07/08/2016 Antibiotics) Medications End Date Status Medication Sig Dispensed Refills Start Date Active gabapentin (NEURONTIN) Take 1 1 300 mg capsule capsule by 6 mouth twice a day Active linagliptin (TRADJENTA) 5 Take 5 mg by 0 mg tablet mouth daily. Active aspirin 325 MG tablet Take 325 mg 0 by mouth daily. Active atorvastatin (LIPITOR) 20 Take 20 mg by 0 MG tablet mouth nightly. Active LORAZepam (ATIVAN) 0.5 MG Take 0.5-1 mg 0 tablet by mouth daily as needed for anxiety. Active metoclopramide (REGLAN) 5 Take 5 mg by 0 MG tablet mouth 2 (two) times a day. Active escitalopram (LEXAPRO) 5 Take 5 mg by 0 MG tablet mouth daily. Active INSULIN REGULAR, HUMAN Inject 35 0 (HUMULIN R U-500, CONC, Units under KWIKPEN SUBQ) the skin 2 (two) times a day. Active Problems Problem Noted Date Episodic lightheadedness 07/22/2017 Urinary tract infection in female 03/30/2017 UTI (urinary tract infection) 03/30/2017 Dizziness, nonspecific 03/17/2017 Immunizations Name Dates Previously Given Next Due [...] Father Maternal Aunt Mother Sister Social History Date Tobacco Use Types Packs/Day Years Used Never Smoker Smokeless Tobacco: Never Used Tobacco Cessation: Counseling Given: No Alcohol Use Drinks/Week oz/Week Comments No Sex Assigned at Date Recorded Not on file Industry Job Start Date Occupation Not on file Not on file Not on file Travel End Travel History Travel Start No recent travel history available. Last Filed Vital Signs Not on file Plan of Treatment Health Maintenance Due Date Last Done Comments COLON CANCER SCREENING 1997 SHINGLES VACCINES (#1) 1997 PNEUMOCOCCAL 2012 POLYSACCHARIDE VACCINE AGE 65 AND OVER 65+ PNEUMOCOCCAL VACCINE 03/18/2018 03/18/2017 (2 of 2 - PPSV23) BREAST CANCER SCREENING 06/18/2018 06/18/2016 INFLUENZA VACCINE 01/19/2019 03/18/2017 Implants Device Identifier Shelf Expiration Date Model / Serial / Lot Implanted Type Area Manufactur er Ports Ports Results Not on fileafter 10/30/2017 Insurance Payer Benefit Subscriber ID Type Phone Address Plan / Group AETNA MEDICARE AETNA xxxxxxxx HMO MEDICARE HMO/PPO [facility] Advance Directives Patient has advance care planning documents on file. For more information, carmela spivey contact: Brennan Sheppard [address] [place] [address]
--- OUTSIDE RECORDS SUMMARY | 2018-10-31 13:47 | XMS REPORT ---
Author Author Admin, [facility] Address Unknown Phone Unavailable Allergies, Adverse Reactions, [...] Other diseases of lung, not elsewhere classified 04/06 CT: 7 mm RUL close to hilum, rec CT 6-12 mo. Dizziness and giddiness 780.4 Active Marianne Abad Pariani DO Dizziness and giddiness Hx of [place] 412 Active Marianne Abad Pariani DO Old myocardial infarction EKG: ant/inf [place] Secondary hyperparathyroidism, renal origin 588.81 Active Marianne Abad Pariani DO Secondary hyperparathyroidism (of renal origin) Nephrology: [facility] Anxiety 300.00 [...] Unspecified vitamin B deficiency 10/05 Vit B 60=260 s/p sq IM inj Heme: Dr. Camilo [...] Dr. Holliday Obesity Active Marianne Baeza DO Obesity, unspecified Screening for osteoporosis V82.81 Active Marianne Abad Monica MCKINNEY Screening for osteoporosis Vitamin D deficiency 268.9 Active Marianne Baeza DO Unspecified vitamin D deficiency 03/07 VITAMIN D,25-OH,TOTAL,IA [L] 8 ng/mL tx Ergo 50,000 U X 12 wks Coronary artery disease 414.00 Active Marianne Baeza DO Coronary atherosclerosis of unspecified type of vessel, reno-sparks or graft s/p 4 v Bypass 2007 [...] great toe without damage to nail, sequela ICD-906.1 Inactive Marianne Abad Pariani DO Fracture ICD-829.0 [...] RODRÍGUEZ ICD-786.05 Inactive Marianne Abad Pariani DO Anemia 285.9 Inactive Marianne Abad Pariani DO [...] mention of tendon injury Podiatry: Dr. Negar Frank Vascular: Dr. Salamanca Fracture 829.0 Resolved Marianne [...] Name NDC Status Provider Patient Instruction ERGOCALCIFEROL 60773 UNIT ORAL CAPSULE 1 tab By Mouth Every wk ERGOCALCIFEROL 12285889784 Active Marianne Abad Pariani DO Active TRAMADOL HCL 50 MG ORAL TABLET take 1/2 - 1 tab By Mouth Twice a Day As Needed pain TRAMADOL HCL 44650941979 Active Marianne Baeza DO Active HUMULIN R U-500 KWIKPEN 500 UNIT/ML SUBCUTANEOUS SOLUTION PEN-INJECTOR 35 units Twice a Day SQ INSULIN REGULAR HUMAN 15214069604 Active Marianne Baeza DO Active ESCITALOPRAM OXALATE 5 MG ORAL TABLET take 1 tab By Mouth Every day for depression/anxiety ESCITALOPRAM OXALATE 31527070330 Active Marianne Baeza DO Active LORAZEPAM 0.5 MG ORAL TABLET take 1-2 tabs By Mouth As Needed As Needed anxiety LORAZEPAM 03639619441 Active Naomie Pelaez CPHT Active FISH OIL 1000 MG ORAL CAPSULE 1 tab By Mouth Every day OMEGA-3 FATTY ACIDS 69225094044 Active Mairanne Baeza DO Active CLOPIDOGREL BISULFATE 75 MG ORAL TABLET TK 1 T PO D CLOPIDOGREL BISULFATE 40182986809 Active Marianne Baeza DO Active NIFEDIPINE ER 60 MG ORAL TABLET EXTENDED RELEASE 24 HOUR Take one tab By Mouth Every Day for blood pressure NIFEDIPINE 95249907242 Active Marianne Baeza DO Active BACLOFEN 10 MG ORAL TABLET take 1/2 tab By Mouth Three Times a Day for muscle spasm BACLOFEN 53052619975 Active Marianne Baeza DO Active FUROSEMIDE 20 MG ORAL TABLET take 1 tab By Mouth As Needed LE swelling FUROSEMIDE 13294117405 Active Marianne Baeza DO Active TRADJENTA 5 MG ORAL TABLET take 1 tab By Mouth Every day LINAGLIPTIN 54569618893 Active Naomie Pelaez CPHT Active BD PEN NEEDLE SHORT U/F 31G X 8 MM Use to dose insulin INSULIN PEN NEEDLE 32681647442 Active Naomie Pelaez CPHT Active ROLLER WALKER use when ambulating MISC. DEVICES 83362241032 Active Marianne Baeza DO Active PROAIR HFA 108 (90 Base) MCG/ACT INHALATION AEROSOL SOLUTION use Every 4-6 hrs As Needed SOB ALBUTEROL SULFATE 65095218892 Active Marianne Baeza DO Active ASPIRIN 325 MG ORAL TABLET take 1 tab By Mouth Every day ASPIRIN 67346054254 Active Marianne Baeza DO Active ATORVASTATIN CALCIUM 20 MG ORAL TABLET take 1 tab By Mouth Every at bedtime for cholesterol ATORVASTATIN CALCIUM 88345040170 Active Marianne Baeza DO Active BENAZEPRIL HCL 40 MG ORAL TABLET 1 tab By Mouth Every day BENAZEPRIL HCL 65373055353 Active Marianne Baeza DO Active CARVEDILOL 25 MG ORAL TABLET take 2 tab By Mouth bid CARVEDILOL 51527289265 Active Marianne Baeza DO Active FUROSEMIDE 40 MG ORAL TABLET take 1 tab By Mouth Every day FUROSEMIDE 08654427332 Active Kimberli Manzo BOATING SAFETY OFFICER Active GABAPENTIN 300 MG ORAL CAPSULE take 1 tab By Mouth bid GABAPENTIN 48835081801 Active Marianne Baeza DO Active ISOSORBIDE MONONITRATE ER 60 MG ORAL TABLET EXTENDED RELEASE 24 HOUR 1 tab By Mouth Every day ISOSORBIDE MONONITRATE 19920756233 Active Marianne Baeza DO Active METOCLOPRAMIDE HCL 5 MG ORAL TABLET take 1 tab By Mouth Every ac (30 min before meal) and hs METOCLOPRAMIDE HCL 58839124053 Active Naomie Pelaez PRODUCTIVITY ENGINEER Active CEPHALEXIN 500 MG ORAL CAPSULE Take one capsule Twice a Day for infection of toe CEPHALEXIN 500 MG ORAL CAPSULE 622021 CEPHALEXIN Inactive VITAMIN D3 400 UNIT ORAL CAPSULE 1 tab By Mouth Every day VITAMIN D3 400 UNIT ORAL CAPSULE CHOLECALCIFEROL Inactive VITAMIN D3 3000 UNIT ORAL TABLET 1 tab By Mouth Every day VITAMIN D3 3000 UNIT ORAL TABLET CHOLECALCIFEROL Inactive FAMCICLOVIR 500 MG ORAL TABLET take 1 tablet By Mouth Every 8 hrs FAMCICLOVIR 500 MG ORAL TABLET 757035 FAMCICLOVIR Inactive LIDOCAINE 5 % EXTERNAL OINTMENT apply to affected area Twice a Day-tid LIDOCAINE 5 % EXTERNAL OINTMENT 8247509 LIDOCAINE Inactive TYLENOL WITH CODEINE #3 TABLET Take one tab every 6 hours as needed for pain TYLENOL WITH CODEINE #3 TABLET ACETAMINOPHEN-CODEINE TABS Inactive ZOFRAN 4 MG ORAL TABLET 1-2 tablets by mouth every 8 hours as needed for nausea ZOFRAN 4 MG ORAL TABLET 305721 ONDANSETRON HCL Inactive HUMALOG KWIKPEN 100 UNIT/ML SUBCUTANEOUS SOLUTION PEN-INJECTOR sc per SS with meals HUMALOG KWIKPEN 100 UNIT/ML SUBCUTANEOUS SOLUTION PEN-INJECTOR INSULIN LISPRO Inactive ERGOCALCIFEROL 84801 UNIT ORAL CAPSULE take 1 tab Every wk X 12 wks ERGOCALCIFEROL 14662 UNIT ORAL CAPSULE 0849213 ERGOCALCIFEROL Inactive HYDRALAZINE HCL 10 MG ORAL TABLET take 1 tab By Mouth tid HYDRALAZINE HCL 10 MG ORAL TABLET 097013 HYDRALAZINE HCL Inactive ZETIA 10 MG ORAL TABLET take 1 tab By Mouth Every day ZETIA 10 MG ORAL TABLET 878340 EZETIMIBE Inactive ALEVE TABLET 1-2 tabs As Needed pain ALEVE TABLET NAPROXEN SODIUM TABS Inactive AMLODIPINE BESYLATE 10 MG ORAL TABLET take 1 tab By Mouth Every day AMLODIPINE BESYLATE 10 MG ORAL TABLET 707130 AMLODIPINE BESYLATE Inactive CYCLOBENZAPRINE HCL 10 MG ORAL TABLET take 1 tab By Mouth As Needed CYCLOBENZAPRINE HCL 10 MG ORAL TABLET 489390 CYCLOBENZAPRINE HCL Inactive LEVEMIR FLEXTOUCH 100 UNIT/ML SUBCUTANEOUS SOLUTION PEN-INJECTOR take 50 U By Mouth Twice a Day, titrate up to a fsg goal ~ 140 LEVEMIR FLEXTOUCH 100 UNIT/ML SUBCUTANEOUS SOLUTION PEN-INJECTOR INSULIN DETEMIR Inactive METFORMIN HCL 1000 MG ORAL TABLET 1 tab By Mouth bid METFORMIN HCL 1000 MG ORAL TABLET 757674 METFORMIN HCL Inactive CEPHALEXIN 500 MG ORAL CAPSULE Take one capsule Twice a Day for infection of toe CEPHALEXIN 88638222326 No Longer Active Marianne Barbosaani DO Active VITAMIN D3 400 UNIT ORAL CAPSULE 1 tab By Mouth Every day CHOLECALCIFEROL 73105153452 No Longer Active Marianne Abad Baeza DO Active VITAMIN D3 3000 UNIT ORAL TABLET 1 tab By Mouth Every day CHOLECALCIFEROL 25974641523 No Longer Active Marianne Abad Baeza DO Active FAMCICLOVIR 500 MG ORAL TABLET take 1 tablet By Mouth Every 8 hrs FAMCICLOVIR 86306122057 No Longer Active Marianne Abad Baeza DO Active LIDOCAINE 5 % EXTERNAL OINTMENT apply to affected area Twice a Day-tid LIDOCAINE 36430732129 No Longer Active Marianne Abad Chelseydenilson DO Active PROMETHAZINE HCL 12.5 MG ORAL TABLET take 1-2 tablets Every 4-6 hrs As Needed nauea PROMETHAZINE HCL 60784445595 No Longer Active Marianne Abad Baeza DO Active TYLENOL WITH CODEINE #3 TABLET Take one tab every 6 hours as needed for pain ACETAMINOPHEN-CODEINE TABS 62423754274 No Longer Active Marianne Abad Chelseydenilson DO Active ZOFRAN 4 MG ORAL TABLET 1-2 tablets by mouth every 8 hours as needed for nausea ONDANSETRON HCL 29842062753 No Longer Active Marianne Bernardoish Chelseydenilson DO Active HUMALOG 100 UNIT/ML SUBCUTANEOUS SOLUTION sc per SS with meals and Every at bedtime INSULIN LISPRO 12497884310 No Longer Active Marianne Abad Baeza DO Active HUMALOG KWIKPEN 100 UNIT/ML SUBCUTANEOUS SOLUTION PEN-INJECTOR sc per SS with meals INSULIN LISPRO 46338772128 No Longer Active Marianne Abadberto Barbosaani DO Active NOVOLOG FLEXPEN 100 UNIT/ML SUBCUTANEOUS SOLUTION PEN-INJECTOR sc per SS with meals INSULIN ASPART 68414112222 No Longer Active Naomie Pelaez CPHT Active ERGOCALCIFEROL 12247 UNIT ORAL CAPSULE take 1 tab Every wk X 12 wks ERGOCALCIFEROL 26095102401 No Longer Active Marianne Abad Baeza DO Active HYDRALAZINE HCL 10 MG ORAL TABLET take 1 tab By Mouth tid HYDRALAZINE HCL 70068131500 No Longer Active Marianne Abad Barbosaani DO Active ZETIA 10 MG ORAL TABLET take 1 tab By Mouth Every day EZETIMIBE 07159490047 No Longer Active Marianne Abad Chelseydenilson DO Active ALEVE TABLET 1-2 tabs As Needed pain NAPROXEN SODIUM TABS 31997138866 No Longer Active Marianne Abad Baeza DO Active AMLODIPINE BESYLATE 10 MG ORAL TABLET take 1 tab By Mouth Every day AMLODIPINE BESYLATE 07461965182 No Longer Active Marianne Abad Barbosaani DO Active CYCLOBENZAPRINE HCL 10 MG ORAL TABLET take 1 tab By Mouth As Needed CYCLOBENZAPRINE HCL 22400524572 No Longer Active Marianne Abad Chelseydenilson DO Active LEVEMIR FLEXTOUCH 100 UNIT/ML SUBCUTANEOUS SOLUTION PEN-INJECTOR take 50 U By Mouth Twice a Day, titrate up to a fsg goal ~ 140 INSULIN DETEMIR 00790908945 No Longer Active Marianne Abad Baeza DO Active METFORMIN HCL 1000 MG ORAL TABLET 1 tab By Mouth bid METFORMIN HCL 71214920385 No Longer Active Marianne Abad Baeza DO Active SIMVASTATIN 40 MG ORAL TABLET take 1 tab By Mouth Every at bedtime SIMVASTATIN 71024338060 No Longer Active Naomie Pelaez [facility] Active Immunizations Vaccine Administration Date Value Standard [...] temperature weight E&M 212 [lb_av] Weight Measured Diagnostic Results Date Name [...] ... - Lab reticulocyte count, blood, absolute 168443 CELLS/UL 10*6/mm3 74950-72502 Lab Report: URINALYSIS REFLEX - Urinalysis appearance, urine CLEAR CLEAR Lab Report: COMPREHENSIVE METABOLIC PANEL, CBC (INCLUDES DIFF/PLT), INNA ... - Chemistry globulins, serum, total 2.7 G/DL (CALC) g/dL 1.9-3.7 Lab Report: COMPREHENSIVE METABOLIC PANEL, CBC (INCLUDES DIFF/PLT), INNA ... - Hematology platelet count 228 THOUSAND/UL 10*3/mm3 626-553 1836/09/20 red blood cell distribution width 14.4 % [...] corpuscular hemoglobin concentration, RBC 31.6 G/DL % 32.0-36.0 Lab Report: URINALYSIS REFLEX - Urinalysis leukocyte esterase, urine, by dipstick NEGATIVE NEGATIVE Lab Report: COMPREHENSIVE METABOLIC PANEL, CBC (INCLUDES DIFF/PLT), INNA ... - Hematology hemoglobin, blood 10.4 g/dL 11.7-15.5 leukocyte count, blood 7.3 THOUSAND/UL 10*3/mm3 3.8-10.8 Lab Report: COMPREHENSIVE METABOLIC PANEL, CBC (INCLUDES DIFF/PLT), INNA ... - Chemistry B-12, serum 476 pg/mL 200-1100 Absolute Neutrophil count 4935 {Cells}/uL 4736-4532 Lab Report: URINALYSIS REFLEX - Urinalysis protein, [...] and Lizz Son Office Visit: Adult Followup #3-monica - Urinalysis urobilinogen, urine, semiquantitative (dipstick) 0.2 Lab Report: COMPREHENSIVE METABOLIC PANEL, CBC (INCLUDES DIFF/PLT), INNA ... - Chemistry calcium, serum 8.4 mg/dL 8.6-10.4 Lab Report: COMPREHENSIVE METABOLIC PANEL, CBC (INCLUDES DIFF/PLT), INNA ... - Hematology basophils as percent of blood leukocytes 0.3 % Internal Correspondence: Pre-Visit Planning - CC care count team member #1, name Lili Aragon Lab Report: COMPREHENSIVE [...] venous blood 21 mmol/L - Lab Report: URINALYSIS REFLEX - Chemistry RBC, Urine 0-2 /HPF /[HPF] < OR=2 Lab Report: IRON, TIBC AND FERRITIN PANEL, FERRITIN, BASIC METABOLIC CLAIRE ... - Serology rapid plasma reagin antibody, serum NON-REACTIVE NON-REACTIVE Lab Report: COMPREHENSIVE METABOLIC PANEL, CBC (INCLUDES DIFF/PLT), INNA ... - Chemistry sodium, serum 126 mmol/L 998-293 2527/09/20 hemoglobin A1C, blood, as % of total [...] Provider Code Facility 00:32:20 CDT Est Patient Comprehensive-[id number] Marianne Abad Pariani DO [id number] [place] [address] 21:21:28 CDT Ofc Vst, Est Level V Marianne Abad Pariani DO [facility] [place] [address] 16:00:39 CDT Est Patient Detailed - 64068 Marianne Abad Pariani DO [facility] [place] [address] 00:09:50 CDT Ofc Vst, Est Level V Marianne Abad Pariani DO [facility]-53115 [facility] 23:16:00 CDT Est Patient Detailed - 11857 Marianne Abad Pariani DO [facility]-14350 [facility] 20:07:40 CDT Ofc Vst, Est Level V Marianne Abad Pariani DO [facility]-76959 [facility] 14:14:04 CDT Est Patient Detailed - 63930 Marianne Abad Pariani DO [facility]-94897 [facility] 23:17:07 PBX MANAGER Ofc Vst, Est Level V Marianne Abad Pariani DO [facility]-43211 [facility] 23:49:16 PBX MANAGER Ofc Vst, Est Level IV Marianne Abad Pariani DO [facility]-32815 [facility] 23:33:28 PBX MANAGER Ofc Vst, Est Level V Marianne Abad Pariani DO [facility]-52791 [facility] 19:36:40 PBX MANAGER Ofc Vst, Est Level IV Marianne Abad Pariani DO [facility] [facility] 22:25:43 PBX MANAGER Ofc Vst, Est Level IV Marianne Baeza DO CPT-23323 [facility] 21:38:23 PBX MANAGER Ofc Vst, New Level IV Marianne Baeza DO CPT-09677 [facility] Procedures Code Procedure Name Date Entry Date Standard Description CPT-26458 EKG - Tracing Only 21:21:28 CDT CPT-26168 EKG - Interpretation & Report Only 21:21:27 CDT CPT-37674 Urinalysis - Dip only - In House 16:04:03 CDT CPT-17666 Psychotherapy 30 (16-37*) min - 29397 (with patient and/or family member) 10:58:58 CDT CPT-51423 Diagnostic evaluation (no medical) - 05289 14:08:49 CDT CPT-49210 Glucose Stick 23:49:14 PBX MANAGER CPT-37166 Glucose Stick 23:33:26 PBX MANAGER CPT-73201 Glucose Stick 21:38:23 PBX MANAGER
--- OUTSIDE RECORDS SUMMARY | 2018-10-31 13:47 | XMS REPORT | Clinical Summary ---
Author Author [facility] Address Unknown Phone Unavailable Care Team Providers Care Dramatic Arts Historian Name Role Phone Sharpless PCP Allergies Comments Active Allergy Reactions Severity Noted Date Rapid heart beat Hydralazine Analogues Other (See High 04/06/2017 Comments) Sulfa (Sulfonamide Itching, Rash High 04/06/2017 Antibiotics) Medications End Date Status Medication Sig Dispensed Refills Start Date Active gabapentin (NEURONTIN) Take 300 mg 0 300 MG capsule by mouth 2 (two) times daily. Active simvastatin (ZOCOR) 40 MG Take 40 mg by 0 tablet mouth nightly. Active clopidogrel (PLAVIX) 75 Take 75 mg by 0 mg tablet mouth daily. Active escitalopram oxalate Take 5 mg by 0 (LEXAPRO) 5 MG tablet mouth daily. Active NIFEdipine (ADALAT CC) 60 Take 60 mg by 0 MG 24 hr tablet mouth daily. Active lisinopril Take 20 mg by 0 (PRINIVIL,ZESTRIL) 20 MG mouth daily. tablet Active linagliptin 5 mg Take 5 mg by 0 TabIndications: type 2 mouth daily. diabetes mellitus Active ondansetron (ZOFRAN-ODT) Take 8 mg by 0 8 MG disintegrating mouth 2 (two) tablet times daily as needed for Nausea. Active furosemide (LASIX) 40 MG Take 40 mg by 0 tablet mouth daily. Active carvedilol (COREG) 25 MG Take 25 mg by 0 tablet mouth 2 (two) times daily with breakfast and dinner. Active isosorbide mononitrate Take 60 mg by 0 (IMDUR) 60 MG 24 hr mouth daily. tablet Active LORazepam (ATIVAN) 0.5 MG Take 0.5 mg 0 tablet by mouth every 6 (six) hours as needed for Anxiety. Active metoclopramide (REGLAN) 5 Take 5 mg by 0 MG tablet mouth 2 (two) times daily. 04/08/2018 ranolazine (RANEXA) 500 Take 1 tablet 180 tablet 3 MG 12 hr tablet (500 mg 7 total) by mouth 2 (two) times daily. Active Problems Problem Noted Date Chest pain 04/07/2017 CKD (chronic kidney disease) 04/07/2017 Family History Medical History Relation Name Comments Diabetes Brother Heart disease Brother Cancer Father Diabetes Mother Heart disease Mother Stroke Mother Cancer Sister Diabetes Sister Heart disease Sister Hypertension Sister Relation Name Status Comments Brother Father Mother Sister Social History Date Tobacco Use Types Packs/Day Years Used Never Smoker Smokeless Tobacco: Never Used Alcohol Use Drinks/Week oz/Week Comments No Sex Assigned at Date Recorded Not on file Industry Job Start Date Occupation Not on file Not on file Not on file Travel End Travel History Travel Start No recent travel history available. Last Filed Vital Signs Not on file Plan of Treatment Not on file Results Not on fileafter 10/30/2017 Insurance Payer Benefit Subscriber ID Type Phone Address Plan / Group AETNA - MEDICARE M[employer] CARE AET[employer] xxxxxxxx [phone] [address] [place] [address] HMO POS PPO Guarantor Name Account Relation to Date of Phone Billing Address Type Patient Pamela Alfred Personal/F Self 1945 [id number] (Home) [place] [address] Advance Directives For more information, please contact: [facility] [address] [place] [address] Date Inactivated Comments Code Status Date Activated 04/08/2017 10:51 PM Full Code 04/07/2017 9:03 AM This code status was determined by: Patient
[2018-10-31] MEDS ORDERED: CLONIDINE HCL 0.3 MG TAB PO ONE (14:15)
[2018-10-31] MEDS ORDERED: CLONIDINE HCL 0.2 MG TAB PO ONE (14:15)
[2018-10-31 14:28] LABS: BASOPHILS % 0.2 % (0.0-1.0); EOSINOPHILS # (AUTO) 0.1 (0.0-0.4); EOSINOPHILS % 1.7 % (0.0-6.0); HEMATOCRIT 34.6 % (34.2-44.1); HEMOGLOBIN 11.7 g/dL (12.0-16.0); LYMPHOCYTES # (AUTO) 2.9 (1.0-3.2); MEAN CORPUSCULAR HEMOGLOBIN 29.4 pg (28-32); MEAN CORPUSCULAR HGB CONC 33.8 g/dL (31-35); MEAN CORPUSCULAR VOLUME 86.9 fL (81-99); MONOCYTES # (AUTO) 0.3 (0.2-0.8); MONOCYTES % 3.8 % (4.4-11.3); NEUTROPHILS # (AUTO) 5.1 (2.1-6.9); NEUTROPHILS % 60.1 % (38.7-80.0); PLATELET COUNT 274 x10e3/uL (140-360); RED BLOOD COUNT 3.98 x10e6/uL (3.6-5.1); RED CELL DISTRIBUTION WIDTH 14.5 % (11.7-14.4)
[2018-10-31] MEDS ORDERED: ACETAMINOPHEN 325 MG TAB PO PRN (14:30)
[2018-10-31] MEDS ORDERED: ENALAPRILAT IV INJ 1.25 MG/ML VIAL IV PRN (14:30)
[2018-10-31] MEDS ORDERED: MORPHINE SULFATE 2 MG/ML SYR 1ML IV PRN (14:30)
[2018-10-31] MEDS ORDERED: DIPHENHYDRAMINE HCL INJ 50 MG/ML VIAL IV PRN (14:30)
[2018-10-31] MEDS ORDERED: CLONIDINE HCL 0.2 MG TAB PO PRN (14:30)
[2018-10-31 14:36] LABS: INR 1.05; PROTHROMBIN TIME 14.2 seconds (11.9-14.5)
[2018-10-31 14:37] LABS: PARTIAL THROMBOPLASTIN TIME 29.6 seconds (23.8-35.5)
[2018-10-31 14:44] LABS: ALBUMIN 3.5 g/dL (3.5-5.0); ALBUMIN/GLOBULIN RATIO 0.9 (0.8-2.0); CALCIUM 9.6 mg/dL (8.4-10.2); CREATININE, SERUM 5.44 mg/dL (0.57-1.11)
[2018-10-31] MEDS ORDERED: MORPHINE SULFATE INJ 4 MG/ML INJ 1ML IV PRN (14:45)
[2018-10-31 14:50] LABS: CREATINE KINASE MB 0.9 ng/mL (0-5.0)
--- NOTE | 2018-10-31 15:15 | NUR ---
Consent for hemodialysis obtained at this time.
--- NOTE | 2018-10-31 15:15 | Diagnostic Imaging Report ---
Examination: Single AP view of the chest. COMPARISON: 11/09/2017 INDICATION: Weakness, nausea DISCUSSION: Interval removal of right subclavian port and placement of left internal jugular tunneled hemodialysis catheter. The tip projects over the upper right atrium. Lungs are well-inflated and without focal consolidation, pleural effusion, or pneumothorax. Postsurgical changes of the mediastinum with multiple surgical clips and sternotomy wires. Atherosclerotic calcification of the thoracic aorta. No overt pulmonary edema. No acute osseous abnormality. IMPRESSION: No acute cardiopulmonary abnormality. Signed by: Dr. Froylan Albarado M.D. on 10/31/2018 3:12 PM
--- OUTSIDE RECORDS SUMMARY | 2018-10-31 15:46 | XMS REPORT | Clinical Summary ---
Author Author [facility] Address Unknown Phone Unavailable Care Team Providers Care Promotions Team Leader Name Role Phone Abad Baeza MD PCP [...] AETNA xxxxxxxx HMO MEDICARE HMO/PPO [facility] Advance Directives Patient has advance care planning documents on file. For more information, carmela spivey contact: Brennan Sheppard [address] [place] [address]
--- OUTSIDE RECORDS SUMMARY | 2018-10-31 15:46 | XMS REPORT | Clinical Summary ---
Author Author [facility] Address Unknown Phone Unavailable Care Team Providers Care Import Manager Name Role Phone Sharpless PCP Allergies Comments [...] AETNA - MEDICARE MGD CARE [employer]ET[employer] xxxxxxxx [phone] [address] [place] [address] HMO POS PPO Advance Directives For more information, please contact: [facility] [address] [place] [address] Date Inactivated Comments Code Status Date Activated 04/08/2017 10:51 PM Full Code 04/07/2017 9:03 AM This code status was determined by: Patient
[2018-10-31 16:31] VITALS: BP 135/68
[2018-10-31 16:32] VITALS: BP 135/68
[2018-10-31 16:34] VITALS: BP 135/68
[2018-10-31] MEDS ORDERED: HEPARIN SOD (PORCINE) 1000 UNIT/ML SDV IV PRN (16:45)
[2018-10-31] MEDS ORDERED: MANNITOL 25% 12.5GM/50 ML VIAL IV PRN (16:45)
[2018-10-31] MEDS ORDERED: SODIUM CHLORIDE 0.9% 1000ML 2,000 ML IV PRN (16:45)
[2018-10-31] MEDS ORDERED: SODIUM CHLORIDE 0.9% 250ML 500 ML IV PRN (16:45)
[2018-10-31] MEDS: LISINOPRIL 10 MG TAB PO SCH (17:00)
[2018-10-31] MEDS: FAMOTIDINE 20 MG/2 ML VIAL IV SCH (17:00)
--- NOTE | 2018-10-31 17:06 | NUR ---
Patient admitted from the ER with a diagnosis of fluid overload. Dialysis patient in room will start treatment shortly. POC discussed . Patient is awake, alert, and able to make needs known. Bed in lowest position, locked and call wick within reach.
--- NOTE | 2018-10-31 19:00 | NUR ---
Report and rounds completed. Dialysis nurse at bedside. Patient in bed. Call light within reach. No issues or concerns at this time. Will continue to monitor.
[2018-10-31 20:00] VITALS: BP 121/61
--- NOTE | 2018-10-31 20:00 | NUR ---
HD nurse reported that removed 2L
--- NOTE | 2018-10-31 21:59 | Consultation ---
DATE OF CONSULTATION: HISTORY OF PRESENT ILLNESS: Thank you for the consultation, Dr. Bradshaw and Dr. Castellanos. Ms. Dooley is a pleasant 73-year-old female patient with a past medical history significant for end-stage renal disease. She is on hemodialysis Wednesday, Wednesday, Wednesday. Apparently, she was dialyzing in [place], moved over here with her son about two weeks ago, has not had dialysis in two weeks. She apparently was supposed to be placed at [facility] here in [place]. However, I was not able to be placed in a timely manner and therefore came over to the emergency room, feeling very tired and generally unwell. Subsequently, she is being admitted to the hospital. She is going to need urgent dialysis and she has not had dialysis in two weeks. Her labs are all still pending. The patient currently does not have any shortness of breath. No fever. No chills. No nausea. No vomiting. No diarrhea. No other symptoms. Also has a past history of diabetes mellitus, hypertension, and end-stage renal disease. PAST MEDICAL HISTORY: As outlined above. ALLERGIES: REVIEWED PER CHART. MEDICATIONS: Have all been reviewed per chart. FAMILY HISTORY: Noncontributory. SOCIAL HISTORY: No tobacco, no alcohol use. REVIEW OF SYSTEMS: See HPI. Otherwise, all systems negative. PHYSICAL EXAMINATION: VITAL SIGNS: Have been reviewed per ER data and chart. HEENT EXAMINATION: No cervical lymphadenopathy. NECK: Supple without masses. No JVD. Moist appearing mucosa. SKIN: Moist with good skin turgor. CHEST WALL: Good expansion. No chest wall tenderness. LUNGS: Clear to auscultation bilaterally. CARDIOVASCULAR: S1, S2. No rubs, gallop, or murmur. ABDOMEN: Soft. Positive bowel sounds. Nontender. No organomegaly. EXTREMITIES: No evidence of lower extremity edema. No clubbing. No cyanosis. NEUROLOGIC: Awake, alert x3. Grossly nonfocal exam. LABORATORY DATA: Still pending. IMPRESSION AND PLAN: 1. End-stage renal disease. We will do dialysis today and likely again tomorrow and then place her on either Wednesday, Wednesday, Wednesday or Wednesday, , Wednesday schedule. We will also make arrangements for outpatient dialysis under my care. The patient currently does not have a dialysis clinic that she can go to when she is discharged from the hospital. 2. Hypertension. Continue home medication. We will also remove fluid during dialysis. 3. Anemia of chronic disease, stable. Thank you once again for the consultation. We will follow the patient closely with you and make further recommendations. Ryan Holliday MD TH/MODL /[id number] cc: MD Edgar Mcdonough MD
[2018-11-01] VITALS (7 sets, daily range): BP systolic 104–152; BP diastolic 51–72
[2018-11-01 00:17] LABS: CREATINE KINASE MB 0.6 ng/mL (0-5.0)
--- NOTE | 2018-11-01 05:00 | NUR ---
GRAIN ORIGINATION SPECIALIST reported that when patient up to bathroom with assist, patient reported feeling dizzy and nauseated. V/S 144/68, 69. Instructed to call for assistance to bathroom or ambulating. Bed alarm on and working. Patient states " I think it is because I have not had dialysis in 2 weeks and had it last night." Will continue to monitor.
[2018-11-01] MEDS: ONDANSETRON HCL INJ 2MG/ML 2ML 2 MG/ML VIAL IV PRN (05:16)
[2018-11-01 05:44] LABS: CLARITY,URINE CLEAR (CLEAR); COLOR,URINE YELLOW (YELLOW)
[2018-11-01 05:45] LABS: BILIRUBIN,URINE NEGATIVE (NEGATIVE); KETONES,URINE NEGATIVE (NEGATIVE); LEUKOCYTE ESTERASE ,URINE TRACE (NEGATIVE); NITRITE,URINE NEGATIVE (NEGATIVE); PROTEIN,URINE DIPSTICK 3+ (NEGATIVE); URINE UROBILINOGEN 0.2 mg/dL (0.2 - 1)
--- NOTE | 2018-11-01 06:00 | NUR ---
Patient resting in bed. No issues or concerns.Call light within reach. Bed alarm on and working. Will continue to monitor.
[2018-11-01 06:19] LABS: CREATINE KINASE MB 0.5 ng/mL (0-5.0)
[2018-11-01 06:41] LABS: WBC,URINE (MAN) >50 /HPF (0-5)
[2018-11-01 06:42] LABS: BACTERIA,URINE MANY /HPF; EPITHELIAL CELLS,URINE MODERATE /LPF
[2018-11-01] MEDS: CARVEDILOL 12.5 MG TAB PO SCH (08:30)
[2018-11-01] MEDS: LISINOPRIL 10 MG TAB PO SCH ×2 (08:30→17:38)
[2018-11-01] MEDS: FAMOTIDINE 20 MG/2 ML VIAL IV SCH ×2 (08:50→17:38)
[2018-11-01] MEDS ORDERED: HYDRALAZINE HCL 20 MG/ML VIAL IV PRN (09:45)
[2018-11-01] MEDS ORDERED: CEFTRIAXONE SOD 1 GM VIAL IV SCH (10:00)
[2018-11-01] MEDS ORDERED: DEXTROSE 50% SYRINGE 50 ML IV PRN (10:00)
[2018-11-01] MEDS ORDERED: LORAZEPAM 0.5 MG TAB PO PRN (10:00)
--- NOTE | 2018-11-01 10:11 | NUR ---
SPOKE WITH PT WHOM STATES SHE USUALLY GOES TO [facility], WEDNESDAY AND SATURDAYS 1130 TO NOON. SHE STATES SHE CAME DOWN HERE WITH HER SON TO VISIT FOR GRADUATION AND GOT SICK ON MOTHERS DAY. SHE STATES HER ORIGINAL PLAN WAS TO RETURN HOME IN TIME FOR HER DIALYSIS. SHE IS UNSURE THE NAME OF THE [place] WHERE HER SON STAYS THINKS [place], LOOKED AT FACE SHEET CALLED GRANDDAUGHTER KINGSTON CARRILLO [phone] WHO LIVES IN [facility], SHE STATES YES HER GRANDMOTHER IS STAYING WITH HER SON JC AT [address] [address]. CALLED SUNSHINE AT [facility] [phone] SHE STATES TO CALL PHOTOGRAPH RETOUCHER AT [phone] TO GET TRANSFERRED TO HER AND FAX HEP SCREEN TO [phone].
--- NOTE | 2018-11-01 10:48 | NUR ---
CALLED ROTATING EQUIPMENT SPECIALIST AT [facility] [phone] SPOKE WITH SAILAJA. WHOM STATES THIS IS NOT AN ACTIVE PT, LAST KNOWN FACILITY WAS IN [facility] [phone] CALLED FACILITY SPOKE WITH BOBBY WHOM STATES THEY TRANSFERRED HER FOR 1 VISIT TO [facility] IN [place] BUT HER LAST VISIT WAS WITH THEM IN APRIL OF 2018 AND SHE THEN TRANSFERRED TO A NON [facility] LOCATION. SHE STATES THEY OFTEN GOT MIXED STORIES FROM PT ABOUT WHY NON COMPLIANT. SPOKE WITH GRANDDAUGHTER KING[place]ON AGAIN WHOM STATES PT LIVES WITH HER GRANDSON IN [place]. SHE STATES THE DAUGHTER LIVES NEAR BY HER BUT WORKS MORE AND IS NOT ABLE TO ASSIST WITH TRANSPORT. SHE GOES ON TO STATE THE GRANDSON HAS SEIZURES AND CANNOT HELP TRANSPORT HER. READING THE ED NOTES THE SON REPORTS HE AND HIS BROTHER CAN TAKE HER IN AND SHE IS MOVING HERE. PER THE GRANDDAUGHTER SHE USED TO LIVE HERE BUT HAD PROBLEMS WITH THE DAUGHTER IN LAW AND THAT IS WHY SHE MOVED TO DAUGHTERS IN [place]. NEW PT DIALYSIS WILL NEED TO BE SET UP AND PT IF SHE DECIDES TO RETURN TO WHERE SHE IS WILL NEED TO HAVE FACILITY ARRANGE TRANSFER AT THAT TIME. WILL PULL ALL HOSPITAL RECORDS TO START NEW DIALYSIS CHAIR.
--- NOTE | 2018-11-01 11:15 | NUR ---
Patient receiving dialysis and unable to administer IV antibiotics at this time.
[2018-11-01] MEDS: INSULIN LISPRO 100 UNIT/1 ML 3ML VIAL SQ SCH ×3 (11:30→20:36)
--- NOTE | 2018-11-01 11:42 | Progress Note ---
DATE: 11/01/2018 Renal Progress Note SUBJECTIVE: Followed for end-stage renal disease. Dialysis was done yesterday. The patient has missed two weeks of dialysis and will have another treatment today and then likely put on her schedule Wednesday, , Wednesday schedule for now. No nausea, no vomiting, no shortness of breath. OBJECTIVE: VITAL SIGNS: Have been noted. Blood pressure is better 150s/70s, 74 pulse, afebrile. LUNGS: Clear to auscultation bilaterally. CARDIOVASCULAR: S1, S2. No rub. ABDOMEN: Soft, nontender. EXTREMITIES: No edema. LABORATORY DATA: Not available from today. IMPRESSION AND PLAN: 1. End-stage renal disease. We will continue to provide dialysis today and then we will place on a Wednesday, , Wednesday schedule. We will ask senior case manager to arrange outpatient dialysis under my care. 2. Hypertension. Blood pressure is currently stable. Continue to monitor. Continue current medicines. 3. Anemia of chronic disease, stable. We will continue to monitor. Thank you once again. MD CHACHA Briones/KAYLYNL /[id number]
--- NOTE | 2018-11-01 13:27 | NUR ---
SPOKE WITH XENA DOOLEY WAS BEING SEEN AT THEIR [place] LOCATION [phone].
--- NOTE | 2018-11-01 13:47 | NUR ---
FAXED CLINICALS TO [facility]
--- NOTE | 2018-11-01 13:50 | NUR ---
Visit made by the Spiritual Care Department Pastoral Visitor, Kelsea Shahid. PV provided pastoral presence, prayer, hospitality, and supportive listening. Pastoral Visitor informed pt/family of the scope of Gang Supervisor Services and availability. NELLY TIWARI Electric Power Machine Operator Spiritual Care Department O: [phone] Pager: [phone] ([phone] number calling from)
--- NOTE | 2018-11-01 14:21 | NUR ---
Nutrition Screen Note RD Recommendation for Physician: - Continue Renal diet - Consider checking Phos with next lab draw Plan of Care: RD following, monitoring for tolerance and adequacy Nutrition reason for involvement: Nutrition Risk Trigger- MST Primary Diagnose(s): SOB, volume overload, missed dialysis PMH: ESRD on HD, HTN, anemia, CHF, CABG, pepcid, lispro, prednisone, lasix, zofran, vitamin C Ht: 69 in Wt: 190 lb BMI: 28.1 kg/m2 IBW: [address] Assessment: (11/01) 73 YOF admitted for fluid overload and SOB due to 2 weeks of missed HD tx. Pt discussed during am rounds. Pt seen today per MST screen. Pt reports poor appetite for several months with fair po intake. Pt reports UBW of ~ 195# within the past 6 mo, denies any wt loss. Pt denies any GI distress. Pt declined Nepro, states she doesn't like Nepro or any protein supplements. Chart reviewed. Labs and meds reviewed. Will monitor and continue to follow. Current Diet: Renal Malnutrition Evaluation (11/01/18) The patient does not meet criteria for a specified degree of malnutrition at this time. Will re-evaluate at follow-up as appropriate. Diet Education Needs Assessment: Diet education not indicated. Nutrition Care Level: Low Signed: Ayleen Tolbert RD, LD, [facility]
[2018-11-01] MEDS: CEFTRIAXONE SOD 1 GM/NS 50 ML 50 ML IV SCH (15:41)
[2018-11-01] MEDS: ASCORBIC ACID 500 MG TAB PO SCH (17:38)
[2018-11-01] MEDS: GABAPENTIN 300 MG CAP PO SCH (17:38)
--- NOTE | 2018-11-01 18:30 | NUR ---
Patient is resting in bed in [facility] without any complaints voiced.
[2018-11-01 18:56] LABS: CREATINE KINASE MB 0.5 ng/mL (0-5.0)
[2018-11-01] MEDS: DONEPEZIL HCL 5 MG TAB PO SCH (20:29)
[2018-11-01] MEDS: ATORVASTATIN 40 MG TAB PO SCH (20:29)
[2018-11-01] MEDS: MEMANTINE 10 MG TAB PO SCH (20:29)
--- NOTE | 2018-11-01 20:49 | NUR ---
Report given to nurse on med/surg 1. Patient to go to room 111. Family at bedside. Informed patient and family of transfer.
--- NOTE | 2018-11-01 20:58 | NUR ---
Patient transferred to room 111. Family at bedside. All personal belongings gathered and transferred with patient. Patient A&O x4, stable and no issues or concerns. Oriented to new room and environment. Night nurse at bedside.
--- NOTE | 2018-11-01 21:00 | NUR ---
RECEIVED PATIENT FROM OBSERVATION UNIT VIA HOSPITAL BED ACCOMPANIED BY FAMILY AND STAFF. ORIENTED TO ROOM. CALL LIGHT WITHIN REACHED.
--- NOTE | 2018-11-01 22:20 | NUR ---
Aaox3.assessment done.no resp.distress.no pain voiced.provided snacks.oriented to the unit.bed alarm on.bed locked an din lowest position.phone and call light within reach.informed to call for assistance as needed.verbalized understanding.
[2018-11-02] VITALS (7 sets, daily range): BP systolic 100–150; BP diastolic 50–65
[2018-11-02] MEDS: ONDANSETRON HCL INJ 2MG/ML 2ML 2 MG/ML VIAL IV PRN (00:50)
--- NOTE | 2018-11-02 00:50 | NUR ---
Threw up once.medicated with zofran 4mg iv.v/s stable.keep monitor the pt.
[2018-11-02 06:38] LABS: BASOPHILS % 0.2 % (0.0-1.0); EOSINOPHILS # (AUTO) 0.1 (0.0-0.4); EOSINOPHILS % 1.5 % (0.0-6.0); HEMATOCRIT 31.7 % (34.2-44.1); HEMOGLOBIN 10.8 g/dL (12.0-16.0); LYMPHOCYTES # (AUTO) 3.2 (1.0-3.2); MEAN CORPUSCULAR HEMOGLOBIN 30.3 pg (28-32); MEAN CORPUSCULAR HGB CONC 34.1 g/dL (31-35); MEAN CORPUSCULAR VOLUME 88.8 fL (81-99); MONOCYTES # (AUTO) 0.5 (0.2-0.8); MONOCYTES % 5.5 % (4.4-11.3); NEUTROPHILS # (AUTO) 4.6 (2.1-6.9); NEUTROPHILS % 54.6 % (38.7-80.0); PLATELET COUNT 200 x10e3/uL (140-360); RED BLOOD COUNT 3.57 x10e6/uL (3.6-5.1); RED CELL DISTRIBUTION WIDTH 14.5 % (11.7-14.4)
--- NOTE | 2018-11-02 06:50 | NUR ---
Report given to the oncoming rn.walking rounds done.stable condition.
--- NOTE | 2018-11-02 07:00 | NUR ---
bedside rounds complete no distress noted, updated on poc vocied understanding, denies pain at this time, l fistula noted, thrill palpated, no other co voiced call light in reach will continue to monitor
[2018-11-02 07:18] LABS: ANION GAP 11.4 mmol/L (8-16); CALCIUM 9.1 mg/dL (8.4-10.2); CREATININE, SERUM 4.07 mg/dL (0.57-1.11); MAGNESIUM 2.1 MG/DL (1.3-2.1); POTASSIUM 4.4 mmol/L (3.5-5.1)
[2018-11-02] MEDS: METOCLOPRAMIDE HCL 10 MG/2ML VIAL IV SCH ×3 (08:15→18:09)
[2018-11-02] MEDS: CARVEDILOL 12.5 MG TAB PO SCH (10:07)
[2018-11-02] MEDS: FAMOTIDINE 20 MG/2 ML VIAL IV SCH ×2 (10:07→18:09)
[2018-11-02] MEDS: ASPIRIN 325 MG TAB PO SCH (10:07)
[2018-11-02] MEDS: ISOSORBIDE MONONITRATE 30 MG TAB CR PO SCH (10:08)
[2018-11-02] MEDS: INSULIN LISPRO 100 UNIT/1 ML 3ML VIAL SQ SCH ×4 (10:08→21:10)
[2018-11-02] MEDS: FUROSEMIDE 40 MG TAB PO SCH (10:08)
[2018-11-02] MEDS: ESCITALOPRAM OXALATE 10 MG TAB PO SCH (10:09)
[2018-11-02] MEDS: NIFEDIPINE CR 30 MG TAB PO SCH (10:09)
[2018-11-02] MEDS: GABAPENTIN 300 MG CAP PO SCH ×2 (10:09→18:08)
[2018-11-02] MEDS: LISINOPRIL 10 MG TAB PO SCH ×2 (10:09→17:00)
[2018-11-02] MEDS: CLOPIDOGREL BISULFATE 75 MG TAB PO SCH (10:09)
[2018-11-02] MEDS: PREDNISONE 5 MG TAB PO SCH (10:09)
[2018-11-02] MEDS: ASCORBIC ACID 500 MG TAB PO SCH ×2 (10:10→18:07)
--- NOTE | 2018-11-02 12:02 | Progress Note ---
DATE: 11/02/2018 Renal Progress Note SUBJECTIVE: Followed for end-stage renal disease, on hemodialysis Wednesday, , Wednesday, for now in the hospital. Next dialysis will be tomorrow. No nausea, no vomiting, and no shortness of breath today. OBJECTIVE: VITAL SIGNS: Have been noted and are as follows. Blood pressure 142/68, respirations 18, and afebrile. LUNGS: Clear to auscultation bilaterally. CARDIOVASCULAR: S1 and S2. No rub. ABDOMEN: Soft, nontender. EXTREMITIES: No edema. LABORATORY DATA: Potassium 4.4, BUN 18, and creatinine 4.07. IMPRESSION AND PLAN: 1. End-stage renal disease. Continue dialysis Wednesday, , Wednesday while in the hospital. The patient will also get arrangement made for outpatient dialysis and then can be discharged once outpatient dialysis has been arranged. She also has a new left arm arteriovenous fistula, however, that has not been cannulated as yet. 2. Hypertension. Continue current medicines. 3. Anemia of chronic disease, stable. Continue to monitor closely. Thank you once again. MD CHACHA Briones/KAYLYNL /[id number]
[2018-11-02] MEDS: CEFTRIAXONE SOD 1 GM/NS 50 ML 50 ML IV SCH (12:33)
--- NOTE | 2018-11-02 12:43 | NUR ---
EDUCATED ABOUT IMM, SIGNED, FILED IN CHART, WITH COPY LEFT WITH FAMILY AT BEDSIDE.
--- NOTE | 2018-11-02 13:09 | NUR ---
CALLED AND SPOKE WITH ANA LUISA IN ADMISSION, WHOM REFERRED ME TO APPLICATION PENETRATION TESTER WHOM STATES THEY CANNOT DO AN ADMISSION THROUGH THE ADMISSION LINE, HAVE TO GO THROUGH APPLICATION PENETRATION TESTER, GAVE ALL INFORMATION TO CONNOR AT [facility] WHOM GAVE REFERENCE NUMBER [id number] AND MARILIA WILL BE COORDINATOR [phone] EXT [phone]. CONNOR STATES SHE WILL GIVE ALL INFORMATION TO MARILIA AND SHE SHOULD CALL ME BACK TO CONFIRM CHAIR TIME WITH [facility].
--- NOTE | 2018-11-02 18:58 | NUR ---
WALKING ROUNDS PERFORMED, RECEIVED PT LAYING SEMI FOWLERS IN BED, AAOX3, RR EVEN AND NON-LABORED, ON RA. NO S/SX OF DISTRESS NOTED. LEFT PT LAYING SEMI FOWLERS IN BED, BED IN LOW LOCKED POSITION, SIDE RAILS UPX2, CALL LIGHT AND PHONE WITHIN REACH.
--- NOTE | 2018-11-02 19:15 | NUR ---
BEDSIDE SHIFT REPORT GIVEN TO ONCOMING NURSE, PT LEFT IN STABLE CONDITION
[2018-11-02] MEDS: ATORVASTATIN 40 MG TAB PO SCH (21:05)
[2018-11-02] MEDS: MEMANTINE 10 MG TAB PO SCH (21:05)
[2018-11-02] MEDS: DONEPEZIL HCL 5 MG TAB PO SCH (21:05)
[2018-11-03] VITALS (10 sets, daily range): BP systolic 105–146; BP diastolic 50–65
[2018-11-03] MEDS: METOCLOPRAMIDE HCL 10 MG/2ML VIAL IV SCH ×5 (00:03→23:45)
[2018-11-03 04:15] LABS: BASOPHILS % 0.3 % (0.0-1.0); EOSINOPHILS # (AUTO) 0.1 (0.0-0.4); EOSINOPHILS % 1.4 % (0.0-6.0); HEMATOCRIT 33.6 % (34.2-44.1); HEMOGLOBIN 10.8 g/dL (12.0-16.0); LYMPHOCYTES # (AUTO) 3.2 (1.0-3.2); LYMPHOCYTES % 36.2 % (18.0-39.1); MEAN CORPUSCULAR HEMOGLOBIN 29.1 pg (28-32); MEAN CORPUSCULAR HGB CONC 32.1 g/dL (31-35); MEAN CORPUSCULAR VOLUME 90.6 fL (81-99); MONOCYTES # (AUTO) 0.4 (0.2-0.8); MONOCYTES % 4.9 % (4.4-11.3); NEUTROPHILS # (AUTO) 4.9 (2.1-6.9); PLATELET COUNT 229 x10e3/uL (140-360); RED BLOOD COUNT 3.71 x10e6/uL (3.6-5.1); RED CELL DISTRIBUTION WIDTH 14.3 % (11.7-14.4)
[2018-11-03 04:33] LABS: ANION GAP 15.6 mmol/L (8-16); CALCIUM 9.3 mg/dL (8.4-10.2); CREATININE, SERUM 5.32 mg/dL (0.57-1.11); MAGNESIUM 2.3 MG/DL (1.3-2.1); POTASSIUM 4.6 mmol/L (3.5-5.1)
--- NOTE | 2018-11-03 07:00 | NUR ---
bedside rounds complete no distress noted, updated on poc voiced understanding, r hand 22g no ss of infiltration noted, LUE fistula thrill palpated, L upper chest HD cath, denies pain at this time, no other co voiced call light in reach will continue ot monitor
[2018-11-03] MEDS: MEGESTROL ACETATE 40 MG TAB PO SCH ×2 (07:30→17:13)
[2018-11-03] MEDS: INSULIN LISPRO 100 UNIT/1 ML 3ML VIAL SQ SCH ×5 (07:30→20:42)
[2018-11-03] MEDS: GABAPENTIN 300 MG CAP PO SCH ×2 (09:00→17:14)
[2018-11-03] MEDS: LISINOPRIL 10 MG TAB PO SCH ×2 (09:00→17:15)
[2018-11-03] MEDS: ASCORBIC ACID 500 MG TAB PO SCH ×2 (09:00→17:15)
[2018-11-03] MEDS: ASPIRIN 325 MG TAB PO SCH (09:00)
[2018-11-03] MEDS: NIFEDIPINE CR 30 MG TAB PO SCH (09:00)
[2018-11-03] MEDS: CARVEDILOL 12.5 MG TAB PO SCH (09:00)
[2018-11-03] MEDS: FAMOTIDINE 20 MG/2 ML VIAL IV SCH ×2 (09:00→17:14)
[2018-11-03] MEDS: ISOSORBIDE MONONITRATE 30 MG TAB CR PO SCH (09:00)
--- NOTE | 2018-11-03 11:21 | NUR ---
CALLED SPECIAL EFFECTS TECHNICIAN AND SPOKE WITH BAYLEE MIGUEL IS IN A MEETING BT IN THE REC ORD STATES WILL REVIEW AND HOPE TO HAVE AN ANSWER BY END OF DAY FOR THE REFERRAL TO [facility].
--- NOTE | 2018-11-03 11:28 | Progress Note ---
DATE: 11/03/2018 Renal Progress Note SUBJECTIVE: Followed for end-stage renal disease, tolerating dialysis on Wednesday, , and Wednesday. The patient has a left arm AV fistula, which has not quite developed yet. The patient also has a tunneled dialysis catheter. She is awaiting outpatient placement at [facility] for outpatient placement for dialysis. No nausea, no vomiting, and no shortness of breath. OBJECTIVE: VITAL SIGNS: Have been noted and are stable. LUNGS: Clear to auscultation bilaterally. CARDIOVASCULAR: S1 and S2. No rub. ABDOMEN: Soft and nontender. EXTREMITIES: No edema. LABS: As follows, hemoglobin 10.8. Potassium 4.6, BUN is 30, creatinine is 5.32. IMPRESSION AND PLAN: 1. End-stage renal disease. We will continue to provide dialysis on Wednesday, , and Wednesday and await outpatient dialysis placement at [facility] [place]. 2. Hypertension. Blood pressure is controlled. 3. Anemia of chronic disease, stable. Ryan Holliday MD /MODL /[id number]
[2018-11-03] MEDS: ESCITALOPRAM OXALATE 10 MG TAB PO SCH (17:17)
[2018-11-03] MEDS: FUROSEMIDE 40 MG TAB PO SCH (17:18)
[2018-11-03] MEDS: PREDNISONE 5 MG TAB PO SCH (17:19)
[2018-11-03] MEDS: CLOPIDOGREL BISULFATE 75 MG TAB PO SCH (17:19)
[2018-11-03] MEDS: CEFTRIAXONE SOD 1 GM/NS 50 ML 50 ML IV SCH (17:20)
--- NOTE | 2018-11-03 19:15 | NUR ---
bedside report given to oncoming shift, pt left in stable condition
[2018-11-03] MEDS: DONEPEZIL HCL 5 MG TAB PO SCH (20:28)
[2018-11-03] MEDS: ATORVASTATIN 40 MG TAB PO SCH (20:28)
[2018-11-03] MEDS: MEMANTINE 10 MG TAB PO SCH (20:28)
[2018-11-04] VITALS (8 sets, daily range): BP systolic 108–143; BP diastolic 56–83
[2018-11-04 03:22] LABS: BASOPHILS % 0.2 % (0.0-1.0); EOSINOPHILS % 0.3 % (0.0-6.0); HEMATOCRIT 34.8 % (34.2-44.1); HEMOGLOBIN 11.8 g/dL (12.0-16.0); LYMPHOCYTES # (AUTO) 2.3 (1.0-3.2); LYMPHOCYTES % 22.4 % (18.0-39.1); MEAN CORPUSCULAR HEMOGLOBIN 29.6 pg (28-32); MEAN CORPUSCULAR HGB CONC 33.9 g/dL (31-35); MONOCYTES # (AUTO) 0.3 (0.2-0.8); MONOCYTES % 3.3 % (4.4-11.3); NEUTROPHILS # (AUTO) 7.4 (2.1-6.9); NEUTROPHILS % 73.6 % (38.7-80.0); PLATELET COUNT 231 x10e3/uL (140-360); RED BLOOD COUNT 3.98 x10e6/uL (3.6-5.1)
[2018-11-04 03:27] LABS: MEAN CORPUSCULAR VOLUME 87.4 fL (81-99)
[2018-11-04 03:39] LABS: ANION GAP 16.8 mmol/L (8-16); CALCIUM 9.1 mg/dL (8.4-10.2); CREATININE, SERUM 3.68 mg/dL (0.57-1.11); MAGNESIUM 2.1 MG/DL (1.3-2.1); POTASSIUM 4.8 mmol/L (3.5-5.1)
[2018-11-04] MEDS: METOCLOPRAMIDE HCL 10 MG/2ML VIAL IV SCH ×4 (05:31→23:50)
[2018-11-04] MEDS ORDERED: MEGESTROL ACETA40 MG PO (07:10)
[2018-11-04] MEDS ORDERED: COREG12.5 MG PO (07:10)
[2018-11-04] MEDS ORDERED: LISINOPRIL10 MG PO (07:10)
[2018-11-04] MEDS: ASPIRIN 325 MG TAB PO SCH (08:30)
[2018-11-04] MEDS: MEGESTROL ACETATE 40 MG TAB PO SCH ×2 (08:30→16:50)
[2018-11-04] MEDS: FAMOTIDINE 20 MG/2 ML VIAL IV SCH ×2 (08:30→16:50)
[2018-11-04] MEDS: ESCITALOPRAM OXALATE 10 MG TAB PO SCH (08:31)
[2018-11-04] MEDS: ASCORBIC ACID 500 MG TAB PO SCH ×2 (08:31→16:50)
[2018-11-04] MEDS: CLOPIDOGREL BISULFATE 75 MG TAB PO SCH (08:31)
[2018-11-04] MEDS: PREDNISONE 5 MG TAB PO SCH (08:31)
[2018-11-04] MEDS: CARVEDILOL 12.5 MG TAB PO SCH (08:31)
[2018-11-04] MEDS: GABAPENTIN 300 MG CAP PO SCH ×2 (08:31→16:50)
[2018-11-04] MEDS: INSULIN LISPRO 100 UNIT/1 ML 3ML VIAL SQ SCH ×4 (08:32→21:20)
[2018-11-04] MEDS: FUROSEMIDE 40 MG TAB PO SCH (09:00)
--- NOTE | 2018-11-04 10:22 | NUR ---
CALLED [facility] SPOKE WITH JACKIE WHOM STATES MARILIA IS NOT IN TODAY AND QAMAR IS COVERING, SPOKE WITH QAMAR WHOM STATES SHE SPOKE WITH [facility]SH[facility] AT THE [facility] AND THEY NEED FLOW SHEETS , HEP B PANEL, ALLERGIES AND EKG SENT TO THEIR FAX [phone]. CALLED SUNSHINE SHE STATES THE RECORDS SHE IS WAITING ON ARE THE ONES FROM THE [facility]. SHE STATES TO GO AHEAD AND SEND OVER RECORDS WE HAVE AND TO CALL HER BACK IN 10 MINUTES SO SHE CAN CONTACT THE [facility] TO SEE ABOUT GETTING THEM. SHE HAD DIALYSIS YESTERDAY HERE.
--- NOTE | 2018-11-04 10:56 | NUR ---
CALLED BACK AND SUNSHINE STATES THE [place] STATES SHE HASNT BEEN THERE IN 3 WEEKS. I STATES SHE HAS BEEN HERE FOR A WEEK AND STILL NEEDS CHAIR PLACEMENT. [facility] STATES THAT ARE TRYING TO GET APPROVAL FOR 6 VISITS AND SHE WILL NEED TO LET THEM KNOW IF SHE IS GOING TO TRANSITION TO QUALITY CONTROL AUDITOR OR RETURN HOME TO [facility]. AFTER SEVERAL ATTEMPTS MY CLINICALS WERE SUCCESSFUL IN GOING THROUGH TO [facility].
--- NOTE | 2018-11-04 11:43 | Progress Note ---
DATE: 11/04/2018 Renal Progress Note SUBJECTIVE: Followed for end-stage renal disease, tolerating dialysis Wednesday, , Wednesday, awaiting outpatient dialysis chair time. No nausea, no vomiting, no shortness of breath. OBJECTIVE: VITAL SIGNS: Noted. Blood pressure 108/60, 71 pulse, afebrile. LUNGS: Clear to auscultation bilaterally. CARDIOVASCULAR: S1, S2. No rub. ABDOMEN: Soft, nontender. EXTREMITIES: No edema. LABORATORY DATA: H and H 11.8, 34.8. Sodium 132, potassium 4.8, bicarb 24, BUN is 21, creatinine 3.68. IMPRESSION AND PLAN: 1. End-stage renal disease. Continue on dialysis Wednesday, , Wednesday. 2. Hypertension, stable. 3. Anemia of chronic disease, stable. 4. Awaiting outpatient dialysis chair time before discharge. Ryan Holliday MD /MODL /[id number]
[2018-11-04] MEDS: ISOSORBIDE MONONITRATE 30 MG TAB CR PO SCH (11:46)
[2018-11-04] MEDS: CEFTRIAXONE SOD 1 GM/NS 50 ML 50 ML IV SCH (11:46)
[2018-11-04] MEDS: LISINOPRIL 10 MG TAB PO SCH ×2 (11:46→15:50)
[2018-11-04] MEDS: NIFEDIPINE CR 30 MG TAB PO SCH (11:46)
--- NOTE | 2018-11-04 11:54 | NUR ---
SPOKE WITH OMAR AT [facility] AND GAVE [facility]SHINE PHONE NUMBER AND FAX TO SEND STUFF, SHE STATES PT IS NON COMPLIANT AT THEIR FACILITY BUT WILL ABSOLUTELY TAKE HER BACK WHEN SHE RETURNS TO [place] AND ASSIST WITH TRANSPORTATION
--- NOTE | 2018-11-04 13:21 | NUR ---
CM TO BEDSIDE TO DISCUSS IMM MEDICARE PATIENT'S RIGHTS. QUESTIONS ANSWERED AND SIGNATURE OBTAINED. PATIENT VERBALIZED UNDERSTANDING OF DISCUSSION. COPY OF LETTER TO PATIENT'S CHART AND IN TRANSITION OF CARE FOLDER AT PATIENT'S BEDSIDE.
--- NOTE | 2018-11-04 20:45 | NUR ---
No pain voiced.asessment done.no resp.distress.had shower. family member at bed side.bed locked and in lowest position.phone and call light within reach.informed to call for assistance as needed.
[2018-11-04] MEDS: MEMANTINE 10 MG TAB PO SCH (21:20)
[2018-11-04] MEDS: DONEPEZIL HCL 5 MG TAB PO SCH (21:20)
[2018-11-04] MEDS: ATORVASTATIN 40 MG TAB PO SCH (21:20)
[2018-11-05] VITALS (9 sets, daily range): BP systolic 106–139; BP diastolic 53–65
--- NOTE | 2018-11-05 03:30 | NUR ---
Blood ekaterina from right arm with b.set and sent to the lab.pt tolerated well.
[2018-11-05 03:44] LABS: BASOPHILS % 0.3 % (0.0-1.0); EOSINOPHILS # (AUTO) 0.1 (0.0-0.4); EOSINOPHILS % 0.8 % (0.0-6.0); HEMATOCRIT 31.9 % (34.2-44.1); LYMPHOCYTES % 40.4 % (18.0-39.1); MEAN CORPUSCULAR HGB CONC 34.5 g/dL (31-35); MEAN CORPUSCULAR VOLUME 86.9 fL (81-99); MONOCYTES # (AUTO) 0.5 (0.2-0.8); MONOCYTES % 5.1 % (4.4-11.3); NEUTROPHILS # (AUTO) 5.3 (2.1-6.9); NEUTROPHILS % 53.2 % (38.7-80.0); PLATELET COUNT 238 x10e3/uL (140-360); RED BLOOD COUNT 3.67 x10e6/uL (3.6-5.1)
[2018-11-05 04:07] LABS: ANION GAP 17.1 mmol/L (8-16); CALCIUM 9.4 mg/dL (8.4-10.2); CREATININE, SERUM 5.18 mg/dL (0.57-1.11); MAGNESIUM 2.3 MG/DL (1.3-2.1); PHOSPHORUS 4.7 MG/DL (2.3-4.7); POTASSIUM 4.1 mmol/L (3.5-5.1)
[2018-11-05] MEDS: METOCLOPRAMIDE HCL 10 MG/2ML VIAL IV SCH (05:49)
--- NOTE | 2018-11-05 06:50 | NUR ---
Report given to the oncoming rn.walking rounds done.stable condition.
--- NOTE | 2018-11-05 07:25 | NUR ---
pt resting in bed aa0x3. pt is in no s.s of distress denies pain, no sob noted. on RA right wrist 22 sl patent and dry left hd cath dry and clean (scheduled for hd today) pt is connected to tele running sr will continue to monitor pt closely, side railsx3, bed wheels locked call light is within easy reach, instructed to call for assistance if needed
[2018-11-05] MEDS: INSULIN LISPRO 100 UNIT/1 ML 3ML VIAL SQ SCH ×4 (07:30→21:15)
[2018-11-05] MEDS: ASPIRIN 325 MG TAB PO SCH (08:04)
[2018-11-05] MEDS: CARVEDILOL 12.5 MG TAB PO SCH (08:04)
[2018-11-05] MEDS: FAMOTIDINE 20 MG/2 ML VIAL IV SCH ×2 (08:04→17:10)
[2018-11-05] MEDS: CLOPIDOGREL BISULFATE 75 MG TAB PO SCH (08:05)
[2018-11-05] MEDS: LISINOPRIL 10 MG TAB PO SCH ×2 (08:05→17:10)
[2018-11-05] MEDS: ESCITALOPRAM OXALATE 10 MG TAB PO SCH (08:05)
[2018-11-05] MEDS: FUROSEMIDE 40 MG TAB PO SCH (08:05)
[2018-11-05] MEDS: NIFEDIPINE CR 30 MG TAB PO SCH (08:05)
[2018-11-05] MEDS: ISOSORBIDE MONONITRATE 30 MG TAB CR PO SCH (08:05)
[2018-11-05] MEDS: GABAPENTIN 300 MG CAP PO SCH ×2 (08:05→17:10)
[2018-11-05] MEDS: ASCORBIC ACID 500 MG TAB PO SCH ×2 (08:06→17:10)
[2018-11-05] MEDS: PREDNISONE 5 MG TAB PO SCH (08:35)
[2018-11-05] MEDS: MEGESTROL ACETATE 40 MG TAB PO SCH ×2 (08:35→17:10)
[2018-11-05] MEDS ORDERED: MAGNESIUM HYDROXIDE 30 ML UDC PO PRN (10:45)
[2018-11-05] MEDS: CEFTRIAXONE SOD 1 GM/NS 50 ML 50 ML IV SCH (12:27)
[2018-11-05] MEDS: POLYETHYLENE GLYCOL 3350 17 GM PACK PO SCH (12:27)
--- NOTE | 2018-11-05 17:02 | NUR ---
hd complete pt stable v.s stable bp 130/54 2.1 L removed will continue to monitor
[2018-11-05] MEDS: DOCUSATE SODIUM 100 MG CAP PO SCH (17:10)
--- NOTE | 2018-11-05 17:25 | Progress Note ---
DATE: 11/05/2018 SUBJECTIVE: Followed for end-stage renal disease. Tolerating dialysis Wednesday, , and Wednesday. Also has a left arm AV fistula, which is still maturing. Tolerating dialysis without problems. No nausea, no vomiting, no shortness of breath. OBJECTIVE: VITAL SIGNS: Have been noted and stable. LUNGS: Clear to auscultation bilaterally. CARDIOVASCULAR: S1, S2. No rub. ABDOMEN: Soft, nontender. EXTREMITIES: No edema. LABORATORY DATA: H and H 11 and 31.9. Chemistries; potassium is 4.1, BUN is 37, creatinine is 5.2, calcium 9.4, phosphorus 4.7, magnesium 2.3. IMPRESSION AND PLAN: 1. End-stage renal disease. We will continue to provide dialysis Wednesday, , and Wednesday. Awaiting outpatient dialysis chair time prior to discharge. 2. Hypertension. Blood pressure stable. Continue monitor closely. Continue current medications. 3. Anemia of chronic disease, stable. MD CHACHA Briones/MODL /[id number]
--- NOTE | 2018-11-05 20:40 | NUR ---
Pt is resting comfortably in the bed.no resp.distress.no pain voiced.bed locked and in lowest position.phone and call light within reach.instructed to call for assistance as needed.
[2018-11-05] MEDS: DONEPEZIL HCL 5 MG TAB PO SCH (21:18)
[2018-11-05] MEDS: ATORVASTATIN 40 MG TAB PO SCH (21:18)
[2018-11-05] MEDS: MEMANTINE 10 MG TAB PO SCH (21:18)
[2018-11-06] VITALS (19 sets, daily range): BP systolic 74–139; BP diastolic 42–75
--- NOTE | 2018-11-06 03:20 | NUR ---
Blood ekaterina and sent to the lab.pt tolerated well.
[2018-11-06 04:06] LABS: BASOPHILS # (AUTO) 0.1 (0.0-0.1); BASOPHILS % 0.5 % (0.0-1.0); EOSINOPHILS # (AUTO) 0.1 (0.0-0.4); EOSINOPHILS % 0.7 % (0.0-6.0); HEMATOCRIT 35.5 % (34.2-44.1); HEMOGLOBIN 11.6 g/dL (12.0-16.0); LYMPHOCYTES # (AUTO) 3.9 (1.0-3.2); LYMPHOCYTES % 37.4 % (18.0-39.1); MEAN CORPUSCULAR HEMOGLOBIN 29.4 pg (28-32); MEAN CORPUSCULAR HGB CONC 32.7 g/dL (31-35); MEAN CORPUSCULAR VOLUME 90.1 fL (81-99); MONOCYTES # (AUTO) 0.7 (0.2-0.8); MONOCYTES % 6.4 % (4.4-11.3); NEUTROPHILS # (AUTO) 5.7 (2.1-6.9); NEUTROPHILS % 54.8 % (38.7-80.0); PLATELET COUNT 270 x10e3/uL (140-360); RED BLOOD COUNT 3.94 x10e6/uL (3.6-5.1); RED CELL DISTRIBUTION WIDTH 14.2 % (11.7-14.4)
[2018-11-06 04:32] LABS: ANION GAP 16.1 mmol/L (8-16); CALCIUM 9.2 mg/dL (8.4-10.2); CREATININE, SERUM 3.73 mg/dL (0.57-1.11); MAGNESIUM 2.5 MG/DL (1.3-2.1); POTASSIUM 4.1 mmol/L (3.5-5.1)
--- NOTE | 2018-11-06 06:50 | NUR ---
REPORT GIVEN TO THE ONCOMING RN.WALKING ROUNDS DONE.
--- NOTE | 2018-11-06 07:00 | NUR ---
PT RESTING IN BED COMFORTABLY AA0X3. PT IS IN NO S.S OF DISTRESS DENIES PAIN IV SITES ARE CLEAN AND DRY LEFT HD CATH CLEAN AND DRY RIGHT WRIST 22 PATENT DRY AND INTACT WILL CONTINUE TO MONITOR CLOSELY SIDE RAILX2, BED WHEELS LOCKED ,CALL LIGHT IS WITHIN EASY REACH, INSTRUCTED TO CALL FOR ASSISTANCE IF NEEDED
[2018-11-06] MEDS: FAMOTIDINE 20 MG/2 ML VIAL IV SCH ×2 (07:53→16:45)
[2018-11-06] MEDS: ASPIRIN 325 MG TAB PO SCH (07:53)
[2018-11-06] MEDS: DOCUSATE SODIUM 100 MG CAP PO SCH ×2 (07:53→15:40)
[2018-11-06] MEDS: MEGESTROL ACETATE 40 MG TAB PO SCH ×2 (07:53→16:45)
[2018-11-06] MEDS: FUROSEMIDE 40 MG TAB PO SCH (07:54)
[2018-11-06] MEDS: POLYETHYLENE GLYCOL 3350 17 GM PACK PO SCH (07:54)
[2018-11-06] MEDS: PREDNISONE 5 MG TAB PO SCH (07:54)
[2018-11-06] MEDS: GABAPENTIN 300 MG CAP PO SCH ×2 (07:54→16:45)
[2018-11-06] MEDS: ISOSORBIDE MONONITRATE 30 MG TAB CR PO SCH (07:54)
[2018-11-06] MEDS: CARVEDILOL 12.5 MG TAB PO SCH (07:54)
[2018-11-06] MEDS: CLOPIDOGREL BISULFATE 75 MG TAB PO SCH (07:54)
[2018-11-06] MEDS: NIFEDIPINE CR 30 MG TAB PO SCH (07:54)
[2018-11-06] MEDS: ESCITALOPRAM OXALATE 10 MG TAB PO SCH (07:54)
[2018-11-06] MEDS: ASCORBIC ACID 500 MG TAB PO SCH ×2 (07:54→16:45)
[2018-11-06] MEDS: INSULIN LISPRO 100 UNIT/1 ML 3ML VIAL SQ SCH ×4 (07:56→21:05)
[2018-11-06] MEDS ORDERED: LACTULOSE SYRUP 20 GM/30 ML UDC PO ONE (08:00)
[2018-11-06] MEDS ORDERED: BISACODYL 5 MG TAB EC PO PRN (08:00)
--- NOTE | 2018-11-06 08:50 | NUR ---
UPON PT HAVING A LARGE LIQUID BM , PT ALSO HAD AN EPISODE OF NAUSEA AND VOMITING PT STATES FEELING WEEK ASSISTED PT BACK TO BED VIA WHEEL CHAIR. V/S TAKEN ARE A READ 130/61 HR OF 76 , 02 AT 96%. CLEANED PT UP AND PUT A DIAPER FOR LOOSE STOOLS. PT IS NOW RESTING COMFORTABLY IN BED WILL CONTINUE TO MONITOR
[2018-11-06] MEDS: LISINOPRIL 10 MG TAB PO SCH ×2 (09:00→15:40)
--- NOTE | 2018-11-06 09:28 | NUR ---
Patient c/o feeling dizzy and not feeling well. Call placed to EZIO Dorsey and informed of vital signs noted at 66/43. Patient was placed in Trendelenburg and checked her heart monitor and noted to be in sinus rhythm. New order for 500ml saline bolus. IV fluids started at this time. Will continue to monitor and informed ANNIE Benoit
[2018-11-06] MEDS ORDERED: SODIUM CHLORIDE 0.9% 500ML 500 ML IV ONE ×2 (09:30→14:30)
--- NOTE | 2018-11-06 09:38 | NUR ---
PT CALLED LIGHT STATING SHE FEELS WEAK AND DIZZY V/S TAKEN 75/42 WITH HR OF 65 . AND SAT OF 95% PT IS ON TRENDELENBURG, AND RUNNING ON A BOLUS TO THE RIGHT WRIST WILL MONITOR PT CLOSELY
[2018-11-06] MEDS: ONDANSETRON HCL INJ 2MG/ML 2ML 2 MG/ML VIAL IV PRN (09:51)
--- NOTE | 2018-11-06 11:01 | NUR ---
PT REPORTS FEELING A LITTLE BETTER. PT REMAINS ON TRENDELENBURG WITH BOLUS OF NS RUNNING TO THE RIGHT WRIST AT 250CC.HR (IV SITE REMAINS PATENT) 91/53 IS BP AT THIS TIME IMPROVEMENT NOTED .WILL CONTINUE TO MONITOR CLOSELY
[2018-11-06] MEDS: CEFTRIAXONE SOD 1 GM/NS 50 ML 50 ML IV SCH (11:58)
--- NOTE | 2018-11-06 13:42 | NUR ---
V/S TAKEN BP IS 85/50 HR IS 66 PT IS RESTING IN BED, STATES FEELING WEAK NOTIFIED DISK SANDER GOLD NEW ORDERS FOR MIDODRINE 5MG AND STOP PROCARDIA GIVEN
[2018-11-06] MEDS ORDERED: MIDODRINE HCL 5 MG TABLET ONE (13:59)
[2018-11-06] MEDS ORDERED: MIDODRINE 2.5 MG TAB PO NR (14:00)
--- NOTE | 2018-11-06 14:33 | NUR ---
SPOKE WITH GOLD REGARDING BP OF LOW BP ORDER FOR BOLUS GIVEN OF 250
--- NOTE | 2018-11-06 16:54 | NUR ---
PT STATES FEELING BETTER, V.S ARE BETTER SYSTOLICALLY READING 110. PT IS SITTING UP IN BED EATING DINNER. WILL CONTINUE TO MONITOR SIDE RAILSX2, BED WHEELS LOCKED ,CALL LIGHT IS WITHIN EASY REACH, INSTRUCTED TO CALL FOR ASSISTANCE IF NEEDED
[2018-11-06] MEDS: ATORVASTATIN 40 MG TAB PO SCH (21:03)
[2018-11-06] MEDS: DONEPEZIL HCL 5 MG TAB PO SCH (21:03)
[2018-11-06] MEDS: MEMANTINE 10 MG TAB PO SCH (21:03)
[2018-11-07] VITALS (9 sets, daily range): BP systolic 111–146; BP diastolic 53–68
[2018-11-07 04:10] LABS: BASOPHILS # (AUTO) 0.1 (0.0-0.1); BASOPHILS % 0.5 % (0.0-1.0); EOSINOPHILS # (AUTO) 0.1 (0.0-0.4); EOSINOPHILS % 0.7 % (0.0-6.0); HEMATOCRIT 32.5 % (34.2-44.1); HEMOGLOBIN 10.4 g/dL (12.0-16.0); LYMPHOCYTES # (AUTO) 4.6 (1.0-3.2); LYMPHOCYTES % 42.9 % (18.0-39.1); MEAN CORPUSCULAR HEMOGLOBIN 29.4 pg (28-32); MEAN CORPUSCULAR VOLUME 91.8 fL (81-99); MONOCYTES # (AUTO) 0.6 (0.2-0.8); MONOCYTES % 5.5 % (4.4-11.3); NEUTROPHILS # (AUTO) 5.4 (2.1-6.9); NEUTROPHILS % 50.1 % (38.7-80.0); PLATELET COUNT 239 x10e3/uL (140-360); RED BLOOD COUNT 3.54 x10e6/uL (3.6-5.1); RED CELL DISTRIBUTION WIDTH 14.5 % (11.7-14.4)
[2018-11-07 04:28] LABS: ANION GAP 17.7 mmol/L (8-16); CALCIUM 8.6 mg/dL (8.4-10.2); POTASSIUM 4.7 mmol/L (3.5-5.1)
[2018-11-07 04:30] LABS: CREATININE, SERUM 5.64 mg/dL (0.57-1.11)
--- NOTE | 2018-11-07 06:50 | NUR ---
Bed side report given to the oncoming rn.walking round done.stable condition.
[2018-11-07] MEDS: INSULIN LISPRO 100 UNIT/1 ML 3ML VIAL SQ SCH ×4 (07:30→20:29)
--- NOTE | 2018-11-07 08:03 | NUR ---
CALLED [facility] THIS MORNING LINE WAS BUSY TIMES 3. WILL ATTEMPT AGAIN LATER.
--- NOTE | 2018-11-07 08:13 | NUR ---
SPOKE WITH SUNSHINE SHE STATES HER FIRST CHAIR WILL BE TOMORROW AT 11 AND SHE NEEDS TO BE AT FACILITY AT 10AM. WILL SEND ME A LETTER. TO GIVE CONFIRMATION TO PT. LET DEICER INSPECTOR PNEUMATIC KNOW.
[2018-11-07] MEDS: MEGESTROL ACETATE 40 MG TAB PO SCH ×2 (08:45→17:30)
[2018-11-07] MEDS: CARVEDILOL 12.5 MG TAB PO SCH (09:00)
[2018-11-07] MEDS: POLYETHYLENE GLYCOL 3350 17 GM PACK PO SCH (09:00)
[2018-11-07] MEDS ORDERED: ONDANSETRON HCL 4 MG ORAL DISINTEGRATING TAB PO PRN (09:15)
--- NOTE | 2018-11-07 09:20 | NUR ---
CM SPOKE TO PATIENT AT BEDSIDE REGARDING HOME HEALTH ORDER. PATIENT GIVEN EXPLANATION OF HOME HEALTH SERVICES. PATIENT GIVEN CHOICES BASED ON IN- NETWORK AND OUT OF NET WORK BENFITS AND CHOSE [facility]. CLINICAL SENT TO [facility] AND CHOICE LETTER PLACED IN CHART. [facility] (P) [phone] (F) [phone] [facility]- JACKELINE MOMIN
[2018-11-07] MEDS: FUROSEMIDE 40 MG TAB PO SCH (09:45)
[2018-11-07] MEDS: DOCUSATE SODIUM 100 MG CAP PO SCH ×2 (09:45→20:34)
[2018-11-07] MEDS: ESCITALOPRAM OXALATE 10 MG TAB PO SCH (09:45)
[2018-11-07] MEDS: PREDNISONE 5 MG TAB PO SCH (09:45)
[2018-11-07] MEDS: GABAPENTIN 300 MG CAP PO SCH ×2 (09:45→17:30)
[2018-11-07] MEDS: ISOSORBIDE MONONITRATE 30 MG TAB CR PO SCH (09:45)
[2018-11-07] MEDS: CLOPIDOGREL BISULFATE 75 MG TAB PO SCH (09:45)
[2018-11-07] MEDS: ASCORBIC ACID 500 MG TAB PO SCH ×2 (09:45→20:34)
[2018-11-07] MEDS: ASPIRIN 325 MG TAB PO SCH (09:45)
[2018-11-07] MEDS: FAMOTIDINE 20 MG/2 ML VIAL IV SCH ×2 (09:45→20:34)
[2018-11-07] MEDS: LISINOPRIL 10 MG TAB PO SCH (09:45)
--- NOTE | 2018-11-07 10:41 | NUR ---
SPOKE WITH GOLD,INTERFACE ENGINEER WITH MD CLAYTON, MADE AWARE THAT PER PHYSICAL THERAPY WHEN PT GOT OOB, BP LOW AND PT STATES SHE IS "WEAK", PHYSICAL THERAPY TO DOCUMENT , PT DID AMBULATE FROM BED TO BS CHAIR, CALL LIGHT WITHIN REACH, ORDERS NOTED
--- NOTE | 2018-11-07 10:49 | NUR ---
NEVILLE SPOKE TO EZIO MALCOLM REGARDING NEW ORDER FOR [facility]P PLACEMENT. DUE TO DECONDITIONING AND NO SUPPORT AT HOME; PATIENT MORE APPROPRIATE FOR [facility] FACILITY. CM CALLED [facility] REGARDING ORDER FOR HOME HEALTH AND REQUESTED IT BE CANCELLED SO SKILLED FACILITY CAN INITIATE AUTH.
--- NOTE | 2018-11-07 10:59 | NUR ---
SPOKE WITH PT AND RAAJNI ABOUT INABILITY TO WALK, SPOKE WITH VIDEO POKER FLOORMAN GOT SNF ORDER. PT SIGNED CHOICE FOR [facility], NOTIFIED REP TO COME CLIENT TECHNICAL PROFESSIONAL PACKET, WILL UPDATE WITH PROGRESS, HOPE TO DC PRIOR TO DIALYSIS CHAIR SET UP FOR TOMORROW. SHE WILL CONTINUE WITH DIALYSIS CHAIR SET UP AT [facility].
--- NOTE | 2018-11-07 11:00 | NUR ---
SITTING IN BS CHAIR, CALL LIGHT WITHIN REACH
--- NOTE | 2018-11-07 11:16 | Progress Note ---
DATE: 11/07/2018 SUBJECTIVE: Followed for end-stage renal disease, tolerating dialysis Wednesday, , and Wednesday. Blood pressures have been running on the lower side. No nausea, no vomiting, no shortness of breath. The patient has a dialysis chair time for tomorrow. OBJECTIVE: VITAL SIGNS: Noted blood pressure 128/58, 55 pulse, and afebrile. LUNGS: Clear to auscultation bilaterally. CARDIOVASCULAR: S1 and S2. No rub. ABDOMEN: Soft and nontender. EXTREMITIES: No edema. LABORATORY DATA: Hemoglobin 10.4. Potassium 4.7, BUN 37, and creatinine is 5.6. IMPRESSION AND PLAN: 1. End-stage renal disease, dialysis will be done Wednesday, , and Wednesday. From Renal standpoint, can be discharged today and have dialysis tomorrow. 2. Hypertension. Blood pressure is currently stable. Continue current medicines. We will adjust medication doses down to avoid hypotension. 3. Anemia of chronic disease, stable. Case has been discussed with the patient's nurse. The patient can be discharged from Renal standpoint once dialysis chair time has been obtained. MD CHACHA Briones/MODL /[id number]
[2018-11-07] MEDS: CEFTRIAXONE SOD 1 GM/NS 50 ML 50 ML IV SCH (11:30)
--- NOTE | 2018-11-07 12:03 | NUR ---
SPOKE WITH GOLD, TAPE KELLER OPERATOR WITH MD CLAYTON, MADE AWARE THAT COREG NOT GIVEN THIS AM DUE TO LOW HR AT THE TIME OF 55BPM, ORDERS NOTED
--- NOTE | 2018-11-07 13:14 | NUR ---
EDUCATED ABOUT IMM, SIGNED, FILED IN CHART, WITH COPY LEFT WITH FAMILY AT BEDSIDE.
--- NOTE | 2018-11-07 16:11 | NUR ---
PT WILL NOT BE ABLE TO GET AUTH PRIOR TO PT APPOINTMENT FOR DIALYSIS, WE WILL HAVE TO DIALYZE HER HERE TOMORROW THEN WHEN AUTH IS OBTAINED SHE WILL BE ABLE TO GO TO [facility]. HER FIRST DIALYSIS WILL BE AT [facility] ON WEDNESDAY AT 10 AM.
--- NOTE | 2018-11-07 18:50 | NUR ---
VISITING WITH FAMILY AT THE BEDSIDE, VOICES NO NEEDS AT THIS TIME, CALL LIGHT WITHIN REACH
[2018-11-07] MEDS: DONEPEZIL HCL 5 MG TAB PO SCH (20:34)
[2018-11-07] MEDS: ATORVASTATIN 40 MG TAB PO SCH (20:34)
[2018-11-07] MEDS: MEMANTINE 10 MG TAB PO SCH (20:34)
[2018-11-08] MEDS ORDERED: SODIUM CHLORIDE 0.9% 250ML 500 ML IV PRN (07:15)
[2018-11-08] MEDS ORDERED: ALBUMIN 25% 12.5GM 0.25 GM/ML BTL IV PRN (07:15)
[2018-11-08] MEDS ORDERED: HEPARIN SOD (PORCINE) 1000 UNIT/ML SDV IV PRN (07:15)
[2018-11-08] MEDS ORDERED: SODIUM CHLORIDE 0.9% 1000ML 2,000 ML IV PRN (07:15)
[2018-11-08] MEDS ORDERED: MANNITOL 25% 12.5GM/50 ML VIAL IV PRN (07:15)
[2018-11-08] MEDS: INSULIN LISPRO 100 UNIT/1 ML 3ML VIAL SQ SCH ×4 (07:30→21:24)
[2018-11-08] MEDS ORDERED: LISINOPRIL10 MG PO (07:34)
[2018-11-08 08:07] LABS: BASOPHILS % 0.2 % (0.0-1.0); EOSINOPHILS # (AUTO) 0.1 (0.0-0.4); EOSINOPHILS % 0.7 % (0.0-6.0); HEMATOCRIT 32.4 % (34.2-44.1); HEMOGLOBIN 10.8 g/dL (12.0-16.0); LYMPHOCYTES # (AUTO) 3.8 (1.0-3.2); LYMPHOCYTES % 37.5 % (18.0-39.1); MEAN CORPUSCULAR HEMOGLOBIN 29.5 pg (28-32); MEAN CORPUSCULAR HGB CONC 33.3 g/dL (31-35); MEAN CORPUSCULAR VOLUME 88.5 fL (81-99); MONOCYTES # (AUTO) 0.5 (0.2-0.8); MONOCYTES % 4.8 % (4.4-11.3); NEUTROPHILS # (AUTO) 5.7 (2.1-6.9); NEUTROPHILS % 56.6 % (38.7-80.0); PLATELET COUNT 251 x10e3/uL (140-360); RED BLOOD COUNT 3.66 x10e6/uL (3.6-5.1); RED CELL DISTRIBUTION WIDTH 14.1 % (11.7-14.4)
[2018-11-08 08:22] VITALS: BP 179/81
[2018-11-08 08:27] LABS: ANION GAP 12.4 mmol/L (8-16); CALCIUM 8.7 mg/dL (8.4-10.2); CREATININE, SERUM 5.56 mg/dL (0.57-1.11); MAGNESIUM 2.1 MG/DL (1.3-2.1); POTASSIUM 4.4 mmol/L (3.5-5.1)
--- NOTE | 2018-11-08 08:50 | NUR ---
SPOKE WITH [facility] SINCE THEY ARE IN TRANSITION OF NAME CHANGE THEY ARE UNABLE TO ACCEPT THE PT UNDER INSURANCE THEIR NPI IS NOT CORRECTLY REGISTERED, SPOKE WITH PT SHE IS AGREEABLE FOR ME TO SHARE CLINICALS TO [facility], FAXED CLINICALS, FILLED OUT RTF AND PASRR AND FILED IN CHART. WAITING ON AUTH. PT TO GO TO [address], [facility] [id number] CALL REPORT TO [phone].
[2018-11-08] MEDS: LISINOPRIL 10 MG TAB PO SCH (09:00)
[2018-11-08] MEDS: DOCUSATE SODIUM 100 MG CAP PO SCH ×3 (09:00→21:00)
[2018-11-08] MEDS: POLYETHYLENE GLYCOL 3350 17 GM PACK PO SCH ×2 (09:00→12:18)
[2018-11-08] MEDS: MEGESTROL ACETATE 40 MG TAB PO SCH ×2 (12:17→16:15)
[2018-11-08] MEDS: ESCITALOPRAM OXALATE 10 MG TAB PO SCH (12:18)
[2018-11-08] MEDS: FUROSEMIDE 20 MG TAB PO SCH (12:18)
[2018-11-08] MEDS: CLOPIDOGREL BISULFATE 75 MG TAB PO SCH (12:18)
[2018-11-08] MEDS: GABAPENTIN 300 MG CAP PO SCH ×2 (12:18→16:15)
[2018-11-08] MEDS: ASPIRIN 325 MG TAB PO SCH (12:18)
[2018-11-08] MEDS: FAMOTIDINE 20 MG/2 ML VIAL IV SCH ×2 (12:18→21:38)
[2018-11-08] MEDS: PREDNISONE 5 MG TAB PO SCH (12:18)
[2018-11-08] MEDS: ASCORBIC ACID 500 MG TAB PO SCH ×2 (12:18→21:39)
[2018-11-08] MEDS: CEFTRIAXONE SOD 1 GM/NS 50 ML 50 ML IV SCH (12:19)
[2018-11-08] MEDS: ISOSORBIDE MONONITRATE 30 MG TAB CR PO SCH (12:21)
[2018-11-08 12:50] VITALS: BP 144/64
--- NOTE | 2018-11-08 14:00 | NUR ---
Visit made by the Spiritual Care Department Pastoral Visitor, Kelsea Shahid. Pt sleeping soundly and no family present. Pastoral Visitor left a card describing availability of runner man and instructions on how to contact a runner man. NELLY TIWARI Patcher Helper Spiritual Care Department O: [phone] Pager: [phone] ([phone] number calling from)
--- NOTE | 2018-11-08 15:39 | Progress Note ---
DATE: 11/08/2018 Renal Progress Note SUBJECTIVE: Followed for end-stage renal disease, tolerating dialysis on Wednesday, , and Wednesday. No nausea, no vomiting, no shortness of breath. OBJECTIVE: VITAL SIGNS: Have been noted. Blood pressures are looking good at 144/64, 70 heart rate, and 18 respirations. LUNGS: Clear to auscultation bilaterally. CARDIOVASCULAR: S1, S2. No rub. ABDOMEN: Soft, nontender. EXTREMITIES: No edema. LABS: As follows. Hemoglobin 10.8, hematocrit 32.4. Sodium 132, potassium 4.4, BUN 42, creatinine 5.56. IMPRESSION AND PLAN: 1. End-stage renal disease. Continue dialysis on Wednesday, , and Wednesday. The patient likely will get discharged soon and will follow up in the outpatient clinic. 2. Hypertension. Blood pressure stable. 3. Anemia of chronic disease, stable. We will continue to monitor. MD CHACHA Briones/MODL /[id number]
--- NOTE | 2018-11-08 15:49 | NUR ---
Nutrition Screen Note RD Recommendation for Physician: - Continue Renal diet - Consider checking Phos with next lab draw Plan of Care: RD following, monitoring for tolerance and adequacy Nutrition reason for involvement: Follow up Primary Diagnose(s): SOB, volume overload, missed dialysis PMH: ESRD on HD, HTN, anemia, CHF, CABG, pepcid, lispro, prednisone, lasix, zofran, vitamin C Ht: 69 in Wt: 190 lb BMI: 28.1 kg/m2 IBW: [address] Assessment: 11/08: Pt discussed during am rounds, HD chair obtained and pending discharge tomorrow. Pt with 50-100% meal intake, no GI distress. Pt currently on Megace to promote po intake, does not want supplements. LBM 11/06. Skin intact. Labs and meds reviewed. Will monitor and continue to follow. (11/01) 73 YOF admitted for fluid overload and SOB due to 2 weeks of missed HD tx. Pt discussed during am rounds. Pt seen today per MST screen. Pt reports poor appetite for several months with fair po intake. Pt reports UBW of ~ 195# within the past 6 mo, denies any wt loss. Pt denies any GI distress. Pt declined Nepro, states she doesn't like Nepro or any protein supplements. Chart reviewed. Labs and meds reviewed. Will monitor and continue to follow. Current Diet: Renal Malnutrition Evaluation (11/01/18) The patient does not meet criteria for a specified degree of malnutrition at this time. Will re-evaluate at follow-up as appropriate. Diet Education Needs Assessment: Diet education not indicated. Nutrition Care Level: Low Signed: Ayleen Tolbert RD, LD, [facility]
[2018-11-08 16:29] VITALS: BP 147/65
--- NOTE | 2018-11-08 18:57 | NUR ---
Received bedside shift report from AM RN. Patient is laying on bed, call light within reach, side rails up x2 with no signs of distress.
[2018-11-08 19:30] VITALS: BP 147/65
[2018-11-08 20:00] VITALS: BP 135/63
[2018-11-08] MEDS: DONEPEZIL HCL 5 MG TAB PO SCH (21:38)
[2018-11-08] MEDS: ATORVASTATIN 40 MG TAB PO SCH (21:39)
[2018-11-08] MEDS: MEMANTINE 10 MG TAB PO SCH (21:39)
[2018-11-09] VITALS (7 sets, daily range): BP systolic 118–161; BP diastolic 56–72
[2018-11-09 05:57] LABS: ANION GAP 16.8 mmol/L (8-16); CALCIUM 8.8 mg/dL (8.4-10.2); CREATININE, SERUM 4.88 mg/dL (0.57-1.11); POTASSIUM 4.8 mmol/L (3.5-5.1)
--- NOTE | 2018-11-09 07:05 | NUR ---
PT RESTING IN BED [id number]. PT IS IN NO S.S OF DISTRESS DENIES PAIN PT IS ON RA, NO SOB NOTED OR REPORTED CONTINUES ON TELE MONITORING RUNNING SR PT HAS HER LEFT AV FISTULA, THRILL PALPATED LEFT UPPER CHEST HD ACCESS DRY AND INTACT RIGHT HAND 22 SL PATENT AND CLEAN WILL CONTINUE TO MONITOR PT CLOSELY, SIDE RAILSX2, BED WHEELS LOCKED, CALL LIGHT IS WITHIN EASY REACH INSTRUCTED TO CALL FOR ASSISTANCE IF NEEDED
[2018-11-09] MEDS: FAMOTIDINE 20 MG/2 ML VIAL IV SCH ×2 (07:51→21:19)
[2018-11-09] MEDS: MEGESTROL ACETATE 40 MG TAB PO SCH ×2 (07:51→17:09)
[2018-11-09] MEDS: ASPIRIN 325 MG TAB PO SCH (07:51)
[2018-11-09] MEDS: FUROSEMIDE 20 MG TAB PO SCH (07:52)
[2018-11-09] MEDS: POLYETHYLENE GLYCOL 3350 17 GM PACK PO SCH (07:52)
[2018-11-09] MEDS: CLOPIDOGREL BISULFATE 75 MG TAB PO SCH (07:52)
[2018-11-09] MEDS: ESCITALOPRAM OXALATE 10 MG TAB PO SCH (07:52)
[2018-11-09] MEDS: ASCORBIC ACID 500 MG TAB PO SCH ×2 (07:52→21:19)
[2018-11-09] MEDS: DOCUSATE SODIUM 100 MG CAP PO SCH ×2 (07:52→21:19)
[2018-11-09] MEDS: GABAPENTIN 300 MG CAP PO SCH ×2 (07:52→17:09)
[2018-11-09] MEDS: INSULIN LISPRO 100 UNIT/1 ML 3ML VIAL SQ SCH ×4 (08:02→21:19)
[2018-11-09] MEDS: ISOSORBIDE MONONITRATE 30 MG TAB CR PO SCH (12:25)
[2018-11-09] MEDS: LISINOPRIL 10 MG TAB PO SCH (12:25)
[2018-11-09] MEDS: CEFTRIAXONE SOD 1 GM/NS 50 ML 50 ML IV SCH (12:26)
--- NOTE | 2018-11-09 15:35 | NUR ---
CALLED FACUNDO SALINAS AUTH OF [employer], CALLED ROLO POLANCO FOR [employer] MED[employer]ARE [phone] EXT [phone] LEFT MESSAGE ABOUT DIALYSIS CHAIR AND IF SHE IS UNABLE TO GET TO FACILITY IN TIME FOR CHAIR SHE WILL NOT BE ABLE TO DISCHARGE UNTIL AFTER DIALYSIS ON WEDNESDAY BECAUSE OF NOT BEING ABLE TO DO PAPERWORK ON WEEKEND. SHE WILL HAVE TO START THE FOLLOWING WEDNESDAY, WILL NOTIFY [facility] IF SHE IS UNABLE TO MAKE WEDNESDAY CHAIR TO MOVE TO WEDNESDAY.
[2018-11-09] MEDS: ATORVASTATIN 40 MG TAB PO SCH (21:19)
[2018-11-09] MEDS: MEMANTINE 10 MG TAB PO SCH (21:19)
[2018-11-09] MEDS: DONEPEZIL HCL 5 MG TAB PO SCH (21:19)
[2018-11-10] VITALS (7 sets, daily range): BP systolic 127–159; BP diastolic 62–72
[2018-11-10 03:56] LABS: ANION GAP 17.6 mmol/L (8-16); CALCIUM 8.8 mg/dL (8.4-10.2); CREATININE, SERUM 6.04 mg/dL (0.57-1.11); POTASSIUM 4.6 mmol/L (3.5-5.1)
--- NOTE | 2018-11-10 08:27 | NUR ---
UNABLE TO GT AUTH THIS MORNING TO GET PT TRANSFERRED TO FACILITY IN TIME TO BE TRANSFERRED TO DIALYSIS TODAY, PT WILL NEED TO STAY HERE AND GET DIALYSIS ON WEDNESDAY AND THEN BE TRANSFERRED TO FACILITY AFTER TREATMENT. CALLED [facility] [phone] AND SPOKE WITH SUNSHINE WHOM STATES THE FAMILY CAN BRING HER TOMORROW TO FILL OUT PAPERWORK AND SHE CAN START ON SAT. WAITING ON FACILITY TO RETURN CALL TO SEE IF ABLE TO MAKE HAPPEN.
[2018-11-10] MEDS: LISINOPRIL 10 MG TAB PO SCH (09:00)
[2018-11-10] MEDS: ISOSORBIDE MONONITRATE 30 MG TAB CR PO SCH (09:00)
[2018-11-10] MEDS: FUROSEMIDE 20 MG TAB PO SCH (09:00)
[2018-11-10] MEDS: POLYETHYLENE GLYCOL 3350 17 GM PACK PO SCH (09:00)
[2018-11-10] MEDS: FAMOTIDINE 20 MG/2 ML VIAL IV SCH ×2 (09:03→21:14)
[2018-11-10] MEDS: ASPIRIN 325 MG TAB PO SCH (09:03)
[2018-11-10] MEDS: DOCUSATE SODIUM 100 MG CAP PO SCH ×2 (09:03→21:14)
[2018-11-10] MEDS: MEGESTROL ACETATE 40 MG TAB PO SCH ×2 (09:03→17:16)
[2018-11-10] MEDS: ASCORBIC ACID 500 MG TAB PO SCH ×2 (09:04→21:14)
[2018-11-10] MEDS: GABAPENTIN 300 MG CAP PO SCH ×2 (09:04→17:16)
[2018-11-10] MEDS: ESCITALOPRAM OXALATE 10 MG TAB PO SCH (09:04)
[2018-11-10] MEDS: CLOPIDOGREL BISULFATE 75 MG TAB PO SCH (09:04)
[2018-11-10] MEDS: INSULIN LISPRO 100 UNIT/1 ML 3ML VIAL SQ SCH ×4 (09:07→21:17)
--- NOTE | 2018-11-10 10:00 | NUR ---
HD TREATMENT STARTING AT THIS TIME
--- NOTE | 2018-11-10 10:18 | Progress Note ---
DATE: 11/10/2018 Renal Progress Note SUBJECTIVE: Followed for end-stage renal disease tolerating dialysis on Wednesday, , and Wednesday. The patient is awaiting discharge and awaiting dialysis chair time. No nausea, no vomiting, no shortness of breath at this time. She does have some lower extremity swelling. OBJECTIVE: VITAL SIGNS: Have been noted and are stable. LUNGS: Clear to auscultation bilaterally. CARDIOVASCULAR: S1 and S2. No rub. ABDOMEN: Soft, nontender. EXTREMITIES: 1+ edema. LABS: Have been reviewed and are as follows: H and H 10.9 and 32.4. Sodium 132, potassium 4.6, BUN is 45, and creatinine 6. IMPRESSION AND PLAN: 1. End-stage renal disease. We will continue dialysis on Wednesday, , and Wednesday. The patient can be discharged once outpatient dialysis chair time is obtained at the Dialysis Clinic. 2. Hypertension. Blood pressure stable. Continue current medicines. 3. Anemia of chronic disease, stable. We will follow closely. MD CHACHA Briones/MODL /[id number]
--- NOTE | 2018-11-10 14:08 | NUR ---
HD COMPLETE V.S STABLE FLUID REMOVED 2.4 L WILL CONTINUE TO MONITOR
[2018-11-10] MEDS: CEFTRIAXONE SOD 1 GM/NS 50 ML 50 ML IV SCH (14:56)
--- NOTE | 2018-11-10 15:15 | NUR ---
NOTIFIED CM REGARDING HD TREATMENT COMPLETE AWAITING ON SNF TRANSFER STATUS AT THIS TIME
[2018-11-10] MEDS: DONEPEZIL HCL 5 MG TAB PO SCH (21:14)
[2018-11-10] MEDS: ATORVASTATIN 40 MG TAB PO SCH (21:14)
[2018-11-10] MEDS: MEMANTINE 10 MG TAB PO SCH (21:14)
[2018-11-11] VITALS (8 sets, daily range): BP systolic 103–131; BP diastolic 49–60
[2018-11-11 03:25] LABS: BASOPHILS % 0.3 % (0.0-1.0); EOSINOPHILS # (AUTO) 0.1 (0.0-0.4); HEMATOCRIT 34.4 % (34.2-44.1); HEMOGLOBIN 11.3 g/dL (12.0-16.0); LYMPHOCYTES # (AUTO) 4.7 (1.0-3.2); LYMPHOCYTES % 38.6 % (18.0-39.1); MEAN CORPUSCULAR HEMOGLOBIN 29.2 pg (28-32); MEAN CORPUSCULAR HGB CONC 32.8 g/dL (31-35); MEAN CORPUSCULAR VOLUME 88.9 fL (81-99); MONOCYTES # (AUTO) 0.7 (0.2-0.8); MONOCYTES % 5.9 % (4.4-11.3); NEUTROPHILS # (AUTO) 6.6 (2.1-6.9); PLATELET COUNT 256 x10e3/uL (140-360); RED BLOOD COUNT 3.87 x10e6/uL (3.6-5.1); RED CELL DISTRIBUTION WIDTH 14.5 % (11.7-14.4)
[2018-11-11 04:42] LABS: ANION GAP 17.1 mmol/L (8-16); CALCIUM 8.9 mg/dL (8.4-10.2); CREATININE, SERUM 4.29 mg/dL (0.57-1.11); POTASSIUM 4.1 mmol/L (3.5-5.1)
--- NOTE | 2018-11-11 07:35 | Diagnostic Imaging Report ---
Examination: Single AP view of the chest. COMPARISON: 10/31/2018 INDICATION: Concern for pneumonia DISCUSSION: Left internal jugular tunneled hemodialysis catheter is unchanged in position. Lungs remain well-inflated and without focal airspace consolidation, pleural effusion, or pneumothorax. Post surgical changes of the mediastinum with atherosclerotic calcification of the thoracic aorta. No overt pulmonary edema. No acute osseous abnormality. IMPRESSION: No consolidative pneumonia. Signed by: Dr. Froylan Albarado M.D. on 11/11/2018 7:31 AM
[2018-11-11] MEDS: MEGESTROL ACETATE 40 MG TAB PO SCH ×2 (08:30→17:30)
[2018-11-11] MEDS: INSULIN LISPRO 100 UNIT/1 ML 3ML VIAL SQ SCH ×4 (08:30→22:00)
[2018-11-11] MEDS: DOCUSATE SODIUM 100 MG CAP PO SCH ×2 (09:00→21:00)
[2018-11-11] MEDS: POLYETHYLENE GLYCOL 3350 17 GM PACK PO SCH (09:00)
[2018-11-11] MEDS: ESCITALOPRAM OXALATE 10 MG TAB PO SCH (10:00)
[2018-11-11] MEDS: ISOSORBIDE MONONITRATE 30 MG TAB CR PO SCH (10:00)
[2018-11-11] MEDS: GABAPENTIN 300 MG CAP PO SCH (10:00)
[2018-11-11] MEDS: CLOPIDOGREL BISULFATE 75 MG TAB PO SCH (10:00)
[2018-11-11] MEDS: ASCORBIC ACID 500 MG TAB PO SCH ×2 (10:00→22:00)
[2018-11-11] MEDS: ASPIRIN 325 MG TAB PO SCH (10:00)
[2018-11-11] MEDS: FUROSEMIDE 20 MG TAB PO SCH (10:00)
[2018-11-11] MEDS: FAMOTIDINE 20 MG/2 ML VIAL IV SCH ×2 (10:00→22:00)
[2018-11-11] MEDS: LISINOPRIL 10 MG TAB PO SCH (10:00)
[2018-11-11] MEDS ORDERED: SODIUM CHLORIDE 0.9% 250ML 250 ML ONE (11:30)
--- NOTE | 2018-11-11 12:49 | Progress Note ---
DATE: 11/11/2018 Renal Progress Note SUBJECTIVE: Followed for end-stage renal disease tolerating dialysis on Wednesday, , and Wednesday. No nausea, no vomiting, no shortness of breath. OBJECTIVE: VITAL SIGNS: Have been noted and are stable. LUNGS: Clear to auscultation bilaterally. CARDIOVASCULAR: S1 and S2. No rub. ABDOMEN: Soft, nontender. EXTREMITIES: No edema. LABS: Hemoglobin is 11.3. Chemistry; potassium is 4.2 and sodium 132. IMPRESSION AND PLAN: 1. End-stage renal disease. Continue dialysis on Wednesday, , Wednesday. Awaiting outpatient dialysis chair time. Once that has been obtained, the patient can be discharged. 2. Hypertension, stable. 3. Anemia of chronic disease, stable. MD CHACHA Briones/MODL /[id number]
--- NOTE | 2018-11-11 12:57 | NUR ---
IMM EXPLAINED, SIGNED BY PT AND PLACED IN CHART COPY TO PT IN CARE TRANSITION FOLDER
--- NOTE | 2018-11-11 19:26 | NUR ---
received patient stable condition, resting in bed. no needs voiced at this time. bed locked and in lowest position, call light within easy reach.
[2018-11-11 19:30] LABS: BILIRUBIN,URINE NEGATIVE (NEGATIVE); CLARITY,URINE SL CLOUDY (CLEAR); COLOR,URINE YELLOW (YELLOW); KETONES,URINE TRACE (NEGATIVE); LEUKOCYTE ESTERASE ,URINE 2+ (NEGATIVE); NITRITE,URINE NEGATIVE (NEGATIVE); PROTEIN,URINE DIPSTICK 2+ (NEGATIVE); URINE UROBILINOGEN 0.2 mg/dL (0.2 - 1)
[2018-11-11 19:43] LABS: BACTERIA,URINE MANY /HPF; TRANSITIONAL EPI CELLS,URINE FEW; WBC,URINE (MAN) >50 /HPF (0-5)
[2018-11-11] MEDS: DONEPEZIL HCL 5 MG TAB PO SCH (22:00)
[2018-11-11] MEDS: MEMANTINE 10 MG TAB PO SCH (22:00)
[2018-11-11] MEDS: ATORVASTATIN 40 MG TAB PO SCH (22:00)
[2018-11-12] VITALS (7 sets, daily range): BP systolic 92–130; BP diastolic 46–60
[2018-11-12 03:30] LABS: BASOPHILS % 0.2 % (0.0-1.0); EOSINOPHILS # (AUTO) 0.3 (0.0-0.4); EOSINOPHILS % 1.7 % (0.0-6.0); HEMATOCRIT 34.1 % (34.2-44.1); HEMOGLOBIN 11.7 g/dL (12.0-16.0); LYMPHOCYTES # (AUTO) 5.6 (1.0-3.2); LYMPHOCYTES % 36.3 % (18.0-39.1); MEAN CORPUSCULAR HGB CONC 34.3 g/dL (31-35); MEAN CORPUSCULAR VOLUME 87.4 fL (81-99); MONOCYTES # (AUTO) 0.9 (0.2-0.8); MONOCYTES % 5.9 % (4.4-11.3); NEUTROPHILS # (AUTO) 8.6 (2.1-6.9); NEUTROPHILS % 55.6 % (38.7-80.0); PLATELET COUNT 265 x10e3/uL (140-360); RED CELL DISTRIBUTION WIDTH 14.6 % (11.7-14.4)
[2018-11-12 03:50] LABS: ANION GAP 18.4 mmol/L (8-16); CALCIUM 9.2 mg/dL (8.4-10.2); CREATININE, SERUM 6.27 mg/dL (0.57-1.11); MAGNESIUM 2.1 MG/DL (1.3-2.1); POTASSIUM 4.4 mmol/L (3.5-5.1)
--- NOTE | 2018-11-12 07:14 | NUR ---
report given to oncoming nurse, patient resting. no distress observed. bed locked and in lowest position, call light within easy reach.
[2018-11-12] MEDS: INSULIN LISPRO 100 UNIT/1 ML 3ML VIAL SQ SCH ×4 (07:30→21:00)
[2018-11-12] MEDS: MEGESTROL ACETATE 40 MG TAB PO SCH ×2 (07:30→17:30)
[2018-11-12] MEDS ORDERED: CEFTRIAXONE SOD 1 GM/NS 50 ML 50 ML IV SCH (07:45)
[2018-11-12] MEDS ORDERED: MELATONIN 5 MG TABLET PO PRN (07:45)
[2018-11-12] MEDS ORDERED: MECLIZINE HCL 12.5 MG TAB PO PRN (08:00)
[2018-11-12 08:11] LABS: BASOPHILS % 0.3 % (0.0-1.0); EOSINOPHILS # (AUTO) 0.3 (0.0-0.4); HEMATOCRIT 34.9 % (34.2-44.1); HEMOGLOBIN 11.9 g/dL (12.0-16.0); LYMPHOCYTES # (AUTO) 5.5 (1.0-3.2); LYMPHOCYTES % 41.1 % (18.0-39.1); MEAN CORPUSCULAR HEMOGLOBIN 29.9 pg (28-32); MEAN CORPUSCULAR HGB CONC 34.1 g/dL (31-35); MEAN CORPUSCULAR VOLUME 87.7 fL (81-99); MONOCYTES # (AUTO) 0.7 (0.2-0.8); MONOCYTES % 5.5 % (4.4-11.3); NEUTROPHILS # (AUTO) 6.9 (2.1-6.9); NEUTROPHILS % 50.9 % (38.7-80.0); PLATELET COUNT 244 x10e3/uL (140-360); RED BLOOD COUNT 3.98 x10e6/uL (3.6-5.1); RED CELL DISTRIBUTION WIDTH 14.5 % (11.7-14.4)
[2018-11-12 08:31] LABS: ANION GAP 19.7 mmol/L (8-16); CALCIUM 9.3 mg/dL (8.4-10.2); CREATININE, SERUM 6.44 mg/dL (0.57-1.11); MAGNESIUM 2.3 MG/DL (1.3-2.1); POTASSIUM 4.7 mmol/L (3.5-5.1)
[2018-11-12 08:43] LABS: EOSINOPHILS % (MANUAL) 3 % (0-7); LYMPHOCYTES % (MANUAL) 52 % (19-48); MONOCYTES % (MANUAL) 3 % (3.4-9.0); NEUTROPHILS % (MANUAL) 42 % (40-74)
[2018-11-12] MEDS: FUROSEMIDE 20 MG TAB PO SCH (09:00)
[2018-11-12] MEDS: ESCITALOPRAM OXALATE 10 MG TAB PO SCH (09:00)
[2018-11-12] MEDS: ASPIRIN 325 MG TAB PO SCH (09:00)
[2018-11-12] MEDS: ASCORBIC ACID 500 MG TAB PO SCH ×2 (09:00→21:00)
[2018-11-12] MEDS: ISOSORBIDE MONONITRATE 30 MG TAB CR PO SCH (09:00)
[2018-11-12] MEDS: FAMOTIDINE 20 MG/2 ML VIAL IV SCH ×2 (09:00→21:00)
[2018-11-12] MEDS: CLOPIDOGREL BISULFATE 75 MG TAB PO SCH (09:00)
[2018-11-12] MEDS ORDERED: LISINOPRIL 10 MG TAB PO SCH (09:00)
[2018-11-12] MEDS: POLYETHYLENE GLYCOL 3350 17 GM PACK PO SCH (09:00)
[2018-11-12] MEDS: DOCUSATE SODIUM 100 MG CAP PO SCH ×2 (09:00→21:00)
--- NOTE | 2018-11-12 09:52 | NUR ---
DIALYSIS IN PROGRESS, AM MEDICATIONS HELD, CALL LIGHT WITHIN REACH
[2018-11-12] MEDS ORDERED: HYDROCODONE/APAP 5MG-325MG TAB PO PRN (11:45)
--- NOTE | 2018-11-12 12:29 | Progress Note ---
DATE: 11/12/2018 Renal Progress Note SUBJECTIVE: Followed for end-stage renal disease, tolerating dialysis. At the present time, no nausea, no vomiting, no shortness of breath. OBJECTIVE: VITAL SIGNS: Noted. Blood pressure 130/60, 89 pulse, afebrile. LUNGS: Clear to auscultation bilaterally. CARDIOVASCULAR: S1 and S2. No rub. ABDOMEN: Soft and nontender. EXTREMITIES: No edema. LABORATORY DATA: Hemoglobin 1.9. Chemistries; sodium 131, potassium 4.7, chloride 95, bicarb 21, BUN 42, and creatinine 6.44. IMPRESSION AND PLAN: 1. End-stage renal disease. We will continue to provide dialysis on Wednesday, , and Wednesday. The patient is awaiting outpatient placement at nursing home facility. The patient has a dialysis chair time, likely will get discharge early next week. Next dialysis will be on Wednesday unless urgently needed prior to that. 2. Hypertension, blood pressure is controlled. 3. Anemia of chronic stable, continue to monitor. MD CHACHA Briones/MODL /[id number]
[2018-11-12] MEDS ORDERED: SODIUM CHLORIDE 0.9% 250ML 250 ML ONE (13:19)
[2018-11-12] MEDS: CEFTRIAXONE SOD 1 GM/NS 50 ML 50 ML IV SCH (15:00)
--- NOTE | 2018-11-12 17:46 | NUR ---
SPOKE WITHIN GLOD, HEALTH LEAD WITH MD CLAYTON, MADE AWARE THAT AFTER DIALYSIS, PT AMBULATED TO BATHROOM, PT "FELT FAINT" AND "DIZZY", ASSISTED BACK TO BED, MADE AWARE THAT CURRENT BP IS WNL
--- NOTE | 2018-11-12 17:57 | NUR ---
no tx due to HD will f/u on wednesday Addendum: 11/12/18 at 1757 by Sebastian Dickinson PTA Amended: Links added.
--- NOTE | 2018-11-12 18:20 | NUR ---
WITH STANDBY ASSIST AND USE OF WALKER, PT OOB TO BEDSIDE COMMODE, PT COMPLAINED OF "DIZZINESS AND WEAK", CLEANSED AND ASSISTED BACK TO BED, PT STATES DIZZINESS BETTER AFTER GETTING BACK IN BED, NO DISTRESS NOTED, CALL LIGHT WITHIN REACH
[2018-11-12] MEDS: DONEPEZIL HCL 5 MG TAB PO SCH (21:00)
[2018-11-12] MEDS: MEMANTINE 10 MG TAB PO SCH (21:00)
[2018-11-12] MEDS: ATORVASTATIN 40 MG TAB PO SCH (21:00)
[2018-11-13] VITALS (8 sets, daily range): BP systolic 81–125; BP diastolic 44–59
[2018-11-13 03:55] LABS: BASOPHILS % 0.3 % (0.0-1.0); EOSINOPHILS # (AUTO) 0.2 (0.0-0.4); EOSINOPHILS % 1.4 % (0.0-6.0); HEMATOCRIT 35.3 % (34.2-44.1); HEMOGLOBIN 11.9 g/dL (12.0-16.0); LYMPHOCYTES # (AUTO) 4.6 (1.0-3.2); LYMPHOCYTES % 31.1 % (18.0-39.1); MEAN CORPUSCULAR HEMOGLOBIN 29.8 pg (28-32); MEAN CORPUSCULAR HGB CONC 33.7 g/dL (31-35); MEAN CORPUSCULAR VOLUME 88.3 fL (81-99); MONOCYTES # (AUTO) 0.9 (0.2-0.8); MONOCYTES % 5.8 % (4.4-11.3); NEUTROPHILS % 60.9 % (38.7-80.0); PLATELET COUNT 268 x10e3/uL (140-360); RED CELL DISTRIBUTION WIDTH 14.5 % (11.7-14.4)
[2018-11-13 04:10] LABS: ANION GAP 20.7 mmol/L (8-16); CALCIUM 9.6 mg/dL (8.4-10.2); CREATININE, SERUM 4.77 mg/dL (0.57-1.11); POTASSIUM 4.7 mmol/L (3.5-5.1)
[2018-11-13] MEDS ORDERED: MELATONIN5 M2 PO (07:15)
[2018-11-13] MEDS ORDERED: COLACE100 MG PO (07:15)
[2018-11-13] MEDS ORDERED: Meclizine Hcl PO (07:15)
[2018-11-13] MEDS: MEGESTROL ACETATE 40 MG TAB PO SCH ×2 (08:27→16:34)
[2018-11-13] MEDS: INSULIN LISPRO 100 UNIT/1 ML 3ML VIAL SQ SCH ×4 (08:27→20:51)
[2018-11-13] MEDS: ASPIRIN 325 MG TAB PO SCH (08:28)
[2018-11-13] MEDS: FAMOTIDINE 20 MG/2 ML VIAL IV SCH ×2 (08:28→20:49)
[2018-11-13] MEDS: DOCUSATE SODIUM 100 MG CAP PO SCH ×2 (08:28→20:51)
[2018-11-13] MEDS: POLYETHYLENE GLYCOL 3350 17 GM PACK PO SCH (08:29)
[2018-11-13] MEDS: FUROSEMIDE 20 MG TAB PO SCH (08:29)
[2018-11-13] MEDS: ASCORBIC ACID 500 MG TAB PO SCH ×2 (08:29→20:50)
[2018-11-13] MEDS: ESCITALOPRAM OXALATE 10 MG TAB PO SCH (08:29)
[2018-11-13] MEDS: CLOPIDOGREL BISULFATE 75 MG TAB PO SCH (08:29)
[2018-11-13] MEDS: ISOSORBIDE MONONITRATE 30 MG TAB CR PO SCH (08:29)
--- NOTE | 2018-11-13 08:30 | NUR ---
The pt. returned to the unit from radiology post ct of the brain. She reports diarrhea stool on the table during procedure. Morning laxatives held due to diarrhea.
--- NOTE | 2018-11-13 08:35 | Diagnostic Imaging Report ---
EXAMINATION: Head CT HISTORY: Dizziness COMPARISON: Head CT of 08/04/2017 TECHNIQUE: Multidetector axial images were obtained without contrast from the foramen magnum to the vertex . The images were reconstructed using brain and bone algorithms. Thin section brain images were reformatted into coronal and sagittal planes. Image quality: Motion/streaking artifact limits the evaluation of the skull base and posterior cranial fossa. Dose modulation, iterative reconstruction, and/or weight based adjustment of the mA/kV was utilized to reduce the radiation dose to as low as reasonably achievable. FINDINGS: Parenchyma: 1. Persistent mild abutment of the matter chronic microvascular ischemic changes. 2. No mass or hemorrhage. No CT evidence of acute territorial vascular insult. Extra-axial spaces:No abnormal density. No extra-axial fluid collections Brain volume: Mild generalized brain volume loss. Ventricles: No hydrocephalus or displacement. Arteries: No density suggestive of thrombus. Atherosclerotic calcification of the vertebral and carotid arteries. Dural sinuses: No abnormal density. Extra-axial spaces: No abnormal density. Foramen magnum: No mass, Chiari malformation, or basilar invagination. Sella: No obvious mass. Paranasal/mastoid sinuses: Imaged portions unremarkable. Skull/Scalp: No lytic or blastic lesions. No fractures. IMPRESSION: 1. No acute intracranial abnormalities. 2. Mild chronic microvascular ischemic changes, stable compared to head CT of 08/04/2017. Signed by: Dr. Kristi Larios M.D. on 11/13/2018 8:31 AM
[2018-11-13] MEDS: CEFTRIAXONE SOD 1 GM/NS 50 ML 50 ML IV SCH (12:07)
[2018-11-13] MEDS: ATORVASTATIN 40 MG TAB PO SCH (20:49)
[2018-11-13] MEDS: DONEPEZIL HCL 5 MG TAB PO SCH (20:49)
[2018-11-13] MEDS: MEMANTINE 10 MG TAB PO SCH (20:49)
[2018-11-14] VITALS: BP 110/58
--- NOTE | 2018-11-14 00:20 | NUR ---
patients bed alarm going off. patient was informed that the alarm is for his safety. He is not in his normal environment and may trip, he is receiving medications that make him a risk for falls. Patient is aware and verbalized understanding. Addendum: 11/14/18 at 0025 by Mima Burris RN please refer to the patient as she not he
[2018-11-14 04:00] VITALS: BP 113/53
[2018-11-14 05:47] LABS: BASOPHILS % 0.2 % (0.0-1.0); EOSINOPHILS # (AUTO) 0.3 (0.0-0.4); EOSINOPHILS % 2.1 % (0.0-6.0); HEMATOCRIT 32.2 % (34.2-44.1); HEMOGLOBIN 10.8 g/dL (12.0-16.0); LYMPHOCYTES # (AUTO) 4.6 (1.0-3.2); LYMPHOCYTES % 37.1 % (18.0-39.1); MEAN CORPUSCULAR HEMOGLOBIN 29.8 pg (28-32); MEAN CORPUSCULAR HGB CONC 33.5 g/dL (31-35); MONOCYTES # (AUTO) 0.6 (0.2-0.8); MONOCYTES % 5.1 % (4.4-11.3); NEUTROPHILS # (AUTO) 6.9 (2.1-6.9); NEUTROPHILS % 55.2 % (38.7-80.0); PLATELET COUNT 260 x10e3/uL (140-360); RED BLOOD COUNT 3.62 x10e6/uL (3.6-5.1); RED CELL DISTRIBUTION WIDTH 14.7 % (11.7-14.4)
[2018-11-14 06:09] LABS: CALCIUM 9.5 mg/dL (8.4-10.2); CREATININE, SERUM 6.92 mg/dL (0.57-1.11); MAGNESIUM 2.5 MG/DL (1.3-2.1); PHOSPHORUS 5.6 MG/DL (2.3-4.7)
--- NOTE | 2018-11-14 07:17 | NUR ---
RECEIVED PATIENT AWAKE RESTING IN BED, NO SIGNS OF DISTRESS. BED LOW, WHEELS LOCKED, SIDE RAILS X2. CALL LIGHT IN REACH WILL CONTINUE TO MONITOR.
[2018-11-14 08:02] VITALS: BP 137/63
[2018-11-14] MEDS: DOCUSATE SODIUM 100 MG CAP PO SCH (08:15)
[2018-11-14] MEDS: FAMOTIDINE 20 MG/2 ML VIAL IV SCH (08:15)
[2018-11-14] MEDS: ASPIRIN 325 MG TAB PO SCH (08:15)
[2018-11-14] MEDS: MEGESTROL ACETATE 40 MG TAB PO SCH (08:15)
[2018-11-14] MEDS: CLOPIDOGREL BISULFATE 75 MG TAB PO SCH (08:16)
[2018-11-14] MEDS: POLYETHYLENE GLYCOL 3350 17 GM PACK PO SCH (08:16)
[2018-11-14] MEDS: ISOSORBIDE MONONITRATE 30 MG TAB CR PO SCH (08:16)
[2018-11-14] MEDS: ASCORBIC ACID 500 MG TAB PO SCH (08:16)
[2018-11-14] MEDS: FUROSEMIDE 20 MG TAB PO SCH (08:16)
[2018-11-14] MEDS: ESCITALOPRAM OXALATE 10 MG TAB PO SCH (08:16)
[2018-11-14] MEDS: INSULIN LISPRO 100 UNIT/1 ML 3ML VIAL SQ SCH ×2 (08:42→12:06)
--- NOTE | 2018-11-14 09:15 | NUR ---
PATIENT A/O X3, EVEN RESPIRATIONS ON RA. BOWEL SOUNDS ACTIVE, SKIN INTACT, NO EDEMA. TELEMETRY #25 SR. RIGHT HAND 20 GAUGE IV SL. IV INTACT AND PATENT. PATIENT AMBULATORY WITH WALKER AND STANDBY ASSIST. VITAL SIGNS STABLE. NO DISCOMFORT OR SIGNS OF DISTRESS. CALL LIGHT IN REACH. WILL CONTINUE TO MONITOR PATIENT.
--- NOTE | 2018-11-14 10:09 | NUR ---
EDUCATED ABOUT IMM, SIGNED, FILED IN CHART, WITH COPY LEFT WITH FAMILY AT BEDSIDE.
[2018-11-14 10:11] VITALS: BP 137/63
[2018-11-14] MEDS ORDERED: AUGMENTIN 875-1 EACH PO (11:33)
[2018-11-14 11:58] VITALS: BP 103/59
[2018-11-14] MEDS: CEFTRIAXONE SOD 1 GM/NS 50 ML 50 ML IV SCH (12:05)
--- NOTE | 2018-11-14 13:03 | Discharge Summary ---
CONSULTING PHYSICIAN: Ryan Holliday with Nephrology. HISTORY: Ms. Dooley is a 73-year-old female, who was admitted with shortness of breath and nausea after not getting dialysis for 2 weeks. She is visiting her son in [place] and had not arranged hemodialysis here. When she admitted, she planned to go back to [place]. Eventually in speaking to her now, she is not sure whether she is going to stay in [place] or go back to [place] and therefore, temporary dialysis has been set up here. PAST MEDICAL HISTORY: Significant for end-stage renal disease with hemodialysis on Wednesday, Wednesday, and Wednesday; hypertension; type 2 diabetes mellitus; coronary artery disease; chronic diastolic congestive heart failure; hyperlipidemia; endometriosis; peripheral neuropathy; anxiety; and dementia. PAST SURGICAL HISTORY: Includes appendectomy, hysterectomy, left foot surgery with toe amputation first and second, left AV fistula, coronary artery bypass graft x4 vessels, and cholecystectomy. FAMILY HISTORY: Her mother had CVA and was diabetic. Sisters, brothers, and niece were all diabetic. Sister had cancer. ALLERGIES: SULFA AND HYDRALAZINE. ADMITTING DIAGNOSES: Include: 1. End-stage renal disease with missed hemodialysis treatments. 2. Chronic diastolic congestive heart failure. 3. Hypertension. 4. Hyperlipidemia. 5. Type 2 diabetes mellitus, complicated by end-stage renal disease. 6. Peripheral neuropathy. 7. Anxiety. 8. Dementia. DISCHARGE DIAGNOSES: Include: 1. End-stage renal disease with missed hemodialysis treatments. 2. Chronic diastolic congestive heart failure. 3. Hypertension. 4. Hyperlipidemia. 5. Type 2 diabetes mellitus, complicated by end-stage renal disease. 6. Peripheral neuropathy. 7. Anxiety. 8. Dementia. 9. Ambulatory dysfunction. 10. Dizziness. 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 12. Urinary tract infection. Nephrology followed for dialysis treatments. She did have some nausea and vomiting after admission. LABS: On admission, WBC 8.44 and hemoglobin 11.7. BUN 42, creatinine 5.44, and GFR 8. On 11/01; urinalysis showed 3+ protein, 2+ glucose, 3+ blood, trace amount of leukocyte esterase, rbc 6-10, wbc greater than 50, many urine bacteria. Hepatitis B surface antigen was negative. Quantitative hepatitis B surface antibody was 103.3. Hepatitis B core total antibody negative. Hepatitis B core IgM antibody negative. Urine culture from November 01 showed mixed faina contamination. Admission chest x-ray showed no acute cardiopulmonary abnormality. Today, on day of discharge, WBC 12.51 which is down from 15.49, hemoglobin 10.8, and hematocrit 32.2. Sodium 135, potassium 5, chloride 97, CO2 26, anion gap 17, BUN 33, creatinine 6.92, GFR 6, calcium 9.5, phosphorus 5.6, magnesium 2.5, B-type natriuretic peptide 30.1. Urinalysis from 11/11 showed 2+ urine protein, negative for glucose, trace amount of ketones, 2+ leukocyte esterase, 6 to 10 rbcs, greater than 50 wbcs, many urine bacteria with urine culture positive for multidrug resistant organism Enterococcus faecalis, which is sensitive to ampicillin and resistant to Cipro, Levaquin, and tetracycline. The patient's brain CT that was done on November 13 was negative for acute intracranial abnormalities, which showed mild chronic microvascular ischemic changes. The patient is known to have some early Alzheimer dementia. The preliminary report from the carotid Doppler study that was completed on November 13 showed possible evidence of significant carotid stenosis at the right ECA and the left proximal ICA. Case was discussed with Dr. Bradshaw and is okay for discharge. Currently, Dr. Bradshaw is listed as PCP. We will ask that the patient continue with renal diet, follow up with Dr. Bradshaw in his office in 1 to 2 weeks, address the carotid Doppler ultrasound on an outpatient basis and continue with her hemodialysis treatments as arranged on an outpatient basis. She is to follow up with [facility] and schedule is arranged for 6 visits. After 6 visits, the patient asked to either return home to [place] or request permanent dialysis here at [facility]. Augmentin 875/125 p.o. daily for 7 days for the urinary tract infection. ADDITIONAL PRESCRIPTIONS: Include: 1. Melatonin. 2. Colace. 3. Meclizine. 4. Megace. The patient was able to ambulate nearly the full length of the hallway today with rolling walker with Physical Therapy. Dictated by Minh Rubio NP Edgar Bradshaw MD HWP/MODL /[id number]
--- NOTE | 2018-11-14 13:25 | NUR ---
REMOVED PATIENTS IV. CATHETER TIP INTACT AND PRESSURE DRESSING APPLIED.
--- NOTE | 2018-11-14 13:41 | NUR ---
PATIENT DISCHARGED FROM FACILITY. PATIENT GATHERED ALL PERSONAL BELONGINGS, DISCHARGE INSTRUCTIONS, AND FOLLOW UP INFORMATION. PATIENT VERBALIZED UNDERSTANDING OF DISCHARGE INSTRUCTIONS. PATIENT LEFT UNIT IN WHEELCHAIR AND WENT HOME VIA PRIVATE AUTO. NO SIGNS OF DISTRESS WHEN LEAVING FACILITY.
--- NOTE | 2018-11-14 16:28 | Progress Note ---
DATE: 11/14/2018 SUBJECTIVE: Followed for end-stage renal disease. Tolerating dialysis Wednesday, Wednesday, and Wednesday. No nausea, no vomiting. No shortness of breath. OBJECTIVE: VITAL SIGNS: Have been noted and stable. Blood pressure 137/63, pulse 89, and afebrile. LUNGS: Clear to auscultation bilaterally. CARDIOVASCULAR: S1 and S2. No gallop or murmur. ABDOMEN: Soft, positive bowel sounds. EXTREMITIES: No edema. LABS: Today, hemoglobin 10.8. Chemistries; potassium 5.0, BUN is 33, creatinine 6.9. IMPRESSION AND PLAN: 1. End-stage renal disease. Continue dialysis Wednesday, , and Wednesday. Next dialysis is tomorrow. 2. Hypertension is stable. 3. Anemia of chronic disease, stable. Thank you once again for the consultation. Ryan Holliday MD /KAYLYNL /[id number]
== END 2018-11-14 13:40 | disposition home or self-care (01) | DRG 640 ==
LOC: ER 13:44 → ERHOLD 15:43 → IMCU 16:24 → OBSVTOIN 11-01 09:59 → MED/SURG 11-01 20:58
PROVIDERS: ADMIT Internal Medicine; ATTEND Internal Medicine
PROC: 5A1D70Z Performance of Urinary Filtration, Intermittent, Less than 6 Hours Per Day (ICD-10-PCS; principal; 2018-10-31)
PROC: 5A1D70Z Performance of Urinary Filtration, Intermittent, Less than 6 Hours Per Day (ICD-10-PCS; 2018-11-01)
PROC: 5A1D70Z Performance of Urinary Filtration, Intermittent, Less than 6 Hours Per Day (ICD-10-PCS; 2018-11-03)
PROC: 5A1D70Z Performance of Urinary Filtration, Intermittent, Less than 6 Hours Per Day (ICD-10-PCS; 2018-11-05)
PROC: 5A1D70Z Performance of Urinary Filtration, Intermittent, Less than 6 Hours Per Day (ICD-10-PCS; 2018-11-08)
PROC: 5A1D70Z Performance of Urinary Filtration, Intermittent, Less than 6 Hours Per Day (ICD-10-PCS; 2018-11-10)
PROC: 5A1D70Z Performance of Urinary Filtration, Intermittent, Less than 6 Hours Per Day (ICD-10-PCS; 2018-11-12)
DX: E87.70 Fluid overload, unspecified (principal); N18.6 End stage renal disease; I13.2 Hypertensive heart and chronic kidney disease with heart failure and with stage 5 chronic kidney disease, or end stage renal disease; I50.32 Chronic diastolic (congestive) heart failure; N39.0 Urinary tract infection, site not specified; E11.22 Type 2 diabetes mellitus with diabetic chronic kidney disease; Z99.2 Dependence on renal dialysis; Z91.15 Patient's noncompliance with renal dialysis; Z88.2 Allergy status to sulfonamides; E11.42 Type 2 diabetes mellitus with diabetic polyneuropathy; Z83.3 Family history of diabetes mellitus; Z82.3 Family history of stroke; Z80.9 Family history of malignant neoplasm, unspecified; Z89.412 Acquired absence of left great toe; Z89.422 Acquired absence of other left toe(s); F41.9 Anxiety disorder, unspecified; I25.10 Atherosclerotic heart disease of native coronary artery without angina pectoris; Z95.1 Presence of aortocoronary bypass graft; D63.1 Anemia in chronic kidney disease; G47.00 Insomnia, unspecified; B95.2 Enterococcus as the cause of diseases classified elsewhere; R42 Dizziness and giddiness; Z16.35 Resistance to multiple antimicrobial drugs; E78.5 Hyperlipidemia, unspecified; G30.0 Alzheimer's disease with early onset; F02.80 Dementia in other diseases classified elsewhere, unspecified severity, without behavioral disturbance, psychotic disturbance, mood disturbance, and anxiety; I65.23 Occlusion and stenosis of bilateral carotid arteries
CPT/HCPCS: 36415; 70450; 71045; 80048; 80053; 81001; 82150; 82550; 82553; 82948; 83036; 83690; 83735; 83880; 84100; 84484; 85025; 85610; 85730; 86704; 86705; 86706; 87040; 87086; 87186; 87340; 90935; 90962; 93005; 93306; 93880; 97139; 99284; G0378; J0696; J1200; J1644; J2150; J2405; J2765; J7030; J7040; J7050; J7512

== ENCOUNTER 2019-11-23 20:42 | Emergency (ER) | payer MEDICARE ==
[~2019-11-23] VITALS: Ht 175.3 cm; Wt 59.4 kg
[~2019-11-23 20:42] MED LIST changes: +AUGMENTIN 875-1 EACH PO; +COLACE100 MG PO; +COREG12.5 MG PO; +MEGESTROL ACETA40 MG PO; +MELATONIN5 M2 PO; +Meclizine Hcl PO
--- OUTSIDE RECORDS SUMMARY | 2019-11-23 20:46 | XMS REPORT | Clinical Summary ---
Author Author [facility] Address Unknown Phone Unavailable Care Team Providers Care Medical Records Coder Name Role Phone Sharpless PCP Allergies Comments Active Allergy Reactions Severity Noted Date Rapid heart beat Hydralazine Analogues Other (See High 04/06/20 17 Comments) Sulfa (Sulfonamide Itching, Rash High 04/06/2017 [...] MG tablet mouth 2 (two) times daily. Active Problems [...] Not on file Results Not on fileafter 11/22/2018 Insurance Payer Benefit Subscriber ID Type Phone Address Plan / Group [employer] - MEDICARE [employer] xxxxxxxx [phone] [address] [place] [address] HMO POS PPO Advance Directives For more information, please contact: [facility] [address] [place] [address] Date Inactivated Comments Code Status Date Activated 04/08/2017 10:51 PM Full Code 04/07/2017 9:03 AM This code status was determined by: Patient
--- OUTSIDE RECORDS SUMMARY | 2019-11-23 20:46 | XMS REPORT | Clinical Summary ---
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 Drinks/Week oz/Week Comments Alcohol Use No Sex Assigned at Date Recorded Not on file Industry Job Start Date Occupation Not on file Not on file Not on file Travel End Travel History Travel Start No recent travel history available. Date Recorded COVID-19 Exposure Response 11/09/2019 8:44 PM CDT In the last month, have you been in contact with No / Unsure someone who was confirmed or suspected to have Coronavirus / COVID-19? Last Filed Vital Signs Reading Time Taken Comments Vital Sign 150/68 11/17/2019 10:40 AM CDT Blood Pressure 74 11/17/2019 10:40 AM CDT Pulse 36.5 C (97.7 F) 11/17/2019 10:40 AM CDT Temperature 16 11/17/2019 10:40 AM CDT Respiratory Rate 97% 11/17/2019 10:40 AM CDT Oxygen Saturation - - Inhaled Oxygen Concentration 74.6 kg (164 lb 6.4 oz) 11/17/2019 2:15 AM CDT Weight 175.3 cm (5' 9") 11/17/2019 2:15 AM CDT Height 24.28 11/17/2019 2:15 AM CDT Body Mass Index Plan of Treatment Health Maintenance Due Date Last Done Comments DIABETIC RETINAL EYE EXAM 1947 DIABETIC FOOT EXAM 1957 COLONOSCOPY SCREENING 1997 SHINGLES VACCINES (#2) 08/20/2015 06/21/2015 BREAST CANCER SCREENING 06/18/2018 06/18/2016 INFLUENZA VACCINE 01/20/2020 03/21/2018, 03/18/2017, 04/10/2015 65+ PNEUMOCOCCAL VACCINE Completed 03/21/2018, 03/18/2017, 03/21/2015 Implants Device Identifier Shelf Expiration Date Model / Serial / L ot Implanted Type Area Manufactur er 12/18/2020 [id number] / / [id number] Device Vasclr Clsr Baln Cath 10ml Cardiovasc N/A: N/A CARDINAL Lkng Syr 6fr 7fr [id number] Implants Implanted: 02/01/2019 at [facility] (Quantity not on file) 07/21/2020 [id number] / / [id number] Catheter Dialysis Glidepath Central N/A: N/A BA RD [id number] Symmetric Tip - Venous PERIPHERAL [id number] Catheters VASCULAR Implanted: 04/03/2019 at [facility] (Quantity not on file) [id number] / / Stent Eluting Coronary 3.25mm X Coronary N/A: N/A GOVEA 18mm Rapid-Exchange - [id number] Stents LABOR ATORI Implanted: 02/03/2019 at [facility] (Quantity not on file) Ports Ports Description:port a cath 09/18/2020 [id number] / / [id number] System Clsr Sut Meditd 6fr Perclose Surgical N/A: N/A GOVEA Proglide - [id number] Implants; VASCULAR Implanted: 02/03/2019 at [facility] Expanders; [facility] (Quantity not on file) Extenders; Surgical Wires [id number] / / Skip Pitman Mltpl Clip Ligaclip Ligtng Surgical ETH ICON 20 Clips 23.8cm Sm Ti - [id number] Implants; END O Implanted: Qty: 1 on 04/06/2019 by [employer]; NILES Michelle Burks MD at [facility] Extenders; [facility] Surgical Wires Procedures Comments Procedure Name Priority Date/Time Associated Diag nosis D-DIMER Routine 11/17/2019 11:22 AM CDT TROPONIN Routine 11/17/2019 7:51 AM CDT TROPONIN Routine 11/16/2019 11:04 PM CDT ECG ED PRELIMINARY Routine 11/16/2019 INTERPRETATION 9:12 PM CDT XR CHEST 1 VW PORTABLE STAT 11/16/2019 8:19 PM CDT ESTIMATED GFR STAT 11/16/2019 7:49 PM CDT TROPONIN STAT 11/16/2019 7:49 PM CDT COMPREHENSIVE METABOLIC STAT 11/16/2019 PANEL 7:49 PM CDT HC COMPLETE BLD COUNT STAT 11/16/2019 W/AUTO DIFF 7:49 PM CDT B NATRIURETIC PEPTIDE STAT 11/16/2019 7:49 PM CDT ECG 12-LEAD STAT 11/16/2019 7:41 PM CDT POC GLUCOSE Routine 11/11/2019 4:13 PM CDT HEPATITIS B SURFACE STAT 11/11/2019 ANTIGEN 9:20 AM CDT POC GLUCOSE Routine 11/11/2019 6:05 AM CDT POC GLUCOSE Routine 11/10/2019 9:50 PM CDT POC GLUCOSE Routine 11/10/2019 3:25 PM CDT POC GLUCOSE Routine 11/10/2019 1:45 PM CDT POC GLUCOSE Routine 11/10/2019 11:24 AM CDT TROPONIN Timed 11/10/2019 6:42 AM CDT LACTIC ACID LEVEL, SEPSIS Timed 11/10/2019 - NOW AND REPEAT 2X EVERY 6:42 AM CDT 3 HOURS POC GLUCOSE Routine 11/10/2019 6:20 AM CDT POC GLUCOSE Routine 11/10/2019 1:45 AM CDT TROPONIN Timed 11/09/2019 11:06 PM CDT LACTIC ACID LEVEL, SEPSIS Timed 11/09/2019 - NOW AND REPEAT 2X EVERY 11:06 PM CDT [address] ABDOMEN PELVIS WO STAT 11/09/2019 CONTRAST 10:22 PM CDT ECG ED PRELIMINARY Routine 11/09/2019 INTERPRETATION 9:34 PM CDT ESTIMATED GFR STAT 11/09/2019 8:56 PM CDT B NATRIURETIC PEPTIDE STAT 11/09/2019 8:56 PM CDT TROPONIN STAT 11/09/2019 8:56 PM CDT CREATINE KINASE, TOTAL STAT 11/09/2019 (CPK) 8:56 PM CDT LACTIC ACID LEVEL, SEPSIS STAT 11/09/2019 - NOW AND REPEAT 2X EVERY 8:56 PM CDT 3 HOURS COMPREHENSIVE METABOLIC STAT 11/09/2019 PANEL 8:56 PM CDT HC COMPLETE BLD COUNT STAT 11/09/2019 W/AUTO DIFF 8:56 PM CDT XR CHEST 1 VW PORTABLE STAT 11/09/2019 8:30 PM CDT ECG 12-LEAD STAT 11/09/2019 8:27 PM CDT XR HUMERUS RIGHT STAT 11/05/2019 10:05 PM CDT TROPONIN Timed 11/02/2019 9:45 AM CDT HEPATITIS B SURFACE AB, STAT 11/02/2019 QUANTITATIVE 9:15 AM CDT HEPATITIS B SURFACE STAT 11/02/2019 ANTIGEN 9:15 AM CDT TROPONIN Timed 11/02/2019 6:38 AM CDT POC GLUCOSE Routine 11/02/2019 5:16 AM CDT XR CHEST 1 VW PORTABLE STAT 11/02/2019 4:09 AM CDT ECG 12-LEAD STAT 11/02/2019 3:56 AM CDT B NATRIURETIC PEPTIDE STAT 11/02/2019 3:49 AM CDT TROPONIN STAT 11/02/2019 3:49 AM CDT ESTIMATED GFR STAT 11/02/2019 3:49 AM CDT COMPREHENSIVE METABOLIC STAT 11/02/2019 PANEL 3:49 AM CDT PROTHROMBIN TIME WITH INR STAT 11/02/2019 3:49 AM CDT HC COMPLETE BLD COUNT STAT 11/02/2019 W/AUTO DIFF 3:49 AM CDT NAIL REMOVAL Routine 10/31/2019 1:12 AM CDT XR TOE 2+ VW RIGHT STAT 10/30/2019 9:55 PM CDT TROPONIN Timed 10/18/2019 2:13 AM CDT LACTIC ACID LEVEL, SEPSIS Timed 10/18/2019 - NOW AND REPEAT 2X EVERY 2:13 AM CDT [address] CHEST WO CONTRAST STAT 10/18/2019 12:[address] HEAD WO CONTRAST STAT 10/18/2019 12:02 AM CDT ESTIMATED GFR STAT 10/17/2019 11:46 PM CDT B NATRIURETIC PEPTIDE STAT 10/17/2019 11:46 PM CDT TROPONIN STAT 10/17/2019 11:46 PM CDT LIPASE LEVEL STAT 10/17/2019 11:46 PM CDT LACTIC ACID LEVEL, SEPSIS STAT 10/17/2019 - NOW AND REPEAT 2X EVERY 11:46 PM CDT 3 HOURS COMPREHENSIVE METABOLIC STAT 10/17/2019 PANEL 11:46 PM CDT HC COMPLETE BLD COUNT STAT 10/17/2019 W/AUTO DIFF 11:46 PM CDT ECG ED PRELIMINARY Routine 10/17/2019 INTERPRETATION 11:35 PM CDT ECG 12-LEAD STAT 10/17/2019 11:31 PM CDT ESTIMATED GFR STAT 10/14/2019 2:42 PM CDT B NATRIURETIC PEPTIDE STAT 10/14/2019 2:42 PM CDT TROPONIN STAT 10/14/2019 2:42 PM CDT CREATINE KINASE, TOTAL STAT 10/14/2019 (CPK) 2:42 PM CDT LIPASE LEVEL STAT 10/14/2019 2:42 PM CDT HEPATIC FUNCTION PANEL STAT 10/14/2019 2:42 PM CDT BASIC METABOLIC PANEL STAT 10/14/2019 2:42 PM CDT HC COMPLETE BLD COUNT STAT 10/14/2019 W/AUTO DIFF 2:[address] HEAD WO CONTRAST STAT 10/14/2019 2:[address] ABDOMEN PELVIS WO STAT 10/14/2019 CONTRAST 2:29 PM CDT ECG 12-LEAD STAT 10/14/2019 2:01 PM CDT ECG ED PRELIMINARY Routine 10/14/2019 INTERPRETATION 1:33 PM CDT POC GLUCOSE Routine 10/12/2019 11:46 AM CDT ESTIMATED GFR STAT 10/12/2019 10:00 AM CDT BASIC METABOLIC PANEL STAT 10/12/2019 10:00 AM CDT HEMOGLOBIN A1C STAT 10/12/2019 10:00 AM CDT POC GLUCOSE Routine 10/12/2019 5:56 AM CDT POC GLUCOSE Routine 10/11/2019 8:44 PM CDT POC GLUCOSE Routine 10/11/2019 4:07 PM CDT XR ABDOMEN 1 VW PORTABLE STAT 10/11/2019 12:28 PM CDT ESTIMATED GFR STAT 10/11/2019 11:41 AM CDT AMYLASE LEVEL STAT 10/11/2019 11:41 AM CDT LIPASE LEVEL STAT 10/11/2019 11:41 AM CDT HEPATIC FUNCTION PANEL STAT 10/11/2019 11:41 AM CDT BASIC METABOLIC PANEL STAT 10/11/2019 11:41 AM CDT HC COMPLETE BLD COUNT STAT 10/11/2019 W/AUTO DIFF 11:41 AM CDT POC GLUCOSE Routine 10/11/2019 10:49 AM CDT POC GLUCOSE Routine 10/11/2019 6:22 AM CDT HEPATITIS B SURFACE STAT 10/10/2019 ANTIGEN 3:32 PM CDT HEMODIALYSIS Routine 10/10/2019 2:[address] RENAL STONE PROTOCOL STAT 10/10/2019 2:59 PM CDT XR CHEST 1 VW PORTABLE STAT 10/10/2019 2:41 PM CDT LIPASE LEVEL STAT 10/10/2019 1:56 PM CDT ESTIMATED GFR STAT 10/10/2019 1:56 PM CDT B NATRIURETIC PEPTIDE STAT 10/10/2019 1:56 PM CDT TROPONIN STAT 10/10/2019 1:56 PM CDT COMPREHENSIVE METABOLIC STAT 10/10/2019 PANEL 1:56 PM CDT PROTHROMBIN TIME WITH INR STAT 10/10/2019 1:56 PM CDT HC COMPLETE BLD COUNT STAT 10/10/2019 W/AUTO DIFF 1:56 PM CDT ECG 12-LEAD STAT 10/10/2019 1:42 PM CDT ECG ED PRELIMINARY Routine 10/10/2019 INTERPRETATION 1:38 PM CDT URINE CULTURE STAT 10/08/2019 3:15 PM CDT URINALYSIS SCREEN AND STAT 10/08/2019 MICROSCOPY, WITH REFLEX 2:36 PM CDT TO CULTURE XR CHEST 1 VW PORTABLE STAT 10/08/2019 1:38 PM CDT ESTIMATED GFR STAT 10/08/2019 1:09 PM CDT LIPASE LEVEL STAT 10/08/2019 1:09 PM CDT COMPREHENSIVE METABOLIC STAT 10/08/2019 PANEL 1:09 PM CDT PARTIAL THROMBOPLASTIN STAT 10/08/2019 TIME (PTT) 1:09 PM CDT PROTHROMBIN TIME WITH INR STAT 10/08/2019 1:09 PM CDT HEPATITIS ACUTE PANEL STAT 10/08/2019 1:04 PM CDT HC COMPLETE BLD COUNT STAT 10/08/2019 W/AUTO DIFF 1:04 PM CDT ECG ED PRELIMINARY Routine 10/08/2019 INTERPRETATION 12:45 PM CDT ECG 12-LEAD STAT 10/08/2019 12:38 PM CDT URINE CULTURE STAT 10/03/2019 8:17 PM CDT ESTIMATED GFR STAT 10/03/2019 7:57 PM CDT COMPREHENSIVE METABOLIC STAT 10/03/2019 PANEL 7:57 PM CDT HC COMPLETE BLD COUNT STAT 10/03/2019 W/AUTO DIFF 7:57 PM CDT URINALYSIS SCREEN AND STAT 10/03/2019 MICROSCOPY, WITH REFLEX 7:47 PM CDT TO CULTURE ESTIMATED GFR STAT 09/23/2019 9:49 PM CDT BETA HYDROXYBUTYRATE STAT 09/23/2019 9:49 PM CDT CREATINE KINASE, TOTAL STAT 09/23/2019 (CPK) 9:49 PM CDT PARTIAL THROMBOPLASTIN STAT 09/23/2019 TIME (PTT) 9:49 PM CDT PROTHROMBIN TIME WITH INR STAT 09/23/2019 9:49 PM CDT MAGNESIUM LEVEL STAT 09/23/2019 9:49 PM CDT B NATRIURETIC PEPTIDE STAT 09/23/2019 9:49 PM CDT TROPONIN STAT 09/23/2019 9:49 PM CDT LIPASE LEVEL STAT 09/23/2019 9:49 PM CDT LACTIC ACID LEVEL, SEPSIS STAT 09/23/2019 - NOW AND REPEAT 2X EVERY 9:49 PM CDT 3 HOURS COMPREHENSIVE METABOLIC STAT 09/23/2019 PANEL 9:49 PM CDT HC COMPLETE BLD COUNT STAT 09/23/2019 W/AUTO DIFF 9:49 PM CDT BLOOD CULTURE, AEROBIC & Routine 09/23/2019 ANAEROBIC 9:49 PM CDT BLOOD CULTURE, AEROBIC & Routine 09/23/2019 ANAEROBIC 9:41 PM CDT XR CHEST 1 VW PORTABLE STAT 09/23/2019 9:11 PM CDT ECG ED PRELIMINARY Routine 09/23/2019 INTERPRETATION 9:00 PM CDT ECG 12-LEAD STAT 09/23/2019 8:35 PM CDT TROPONIN Timed 09/12/2019 4:58 PM CDT XR CHEST 1 VW PORTABLE STAT 09/12/2019 2:34 PM CDT ECG ED PRELIMINARY Routine 09/12/2019 INTERPRETATION 2:19 PM CDT ESTIMATED GFR STAT 09/12/2019 1:41 PM CDT B NATRIURETIC PEPTIDE STAT 09/12/2019 1:41 PM CDT TROPONIN STAT 09/12/2019 1:41 PM CDT CREATINE KINASE, TOTAL STAT 09/12/2019 (CPK) 1:41 PM CDT COMPREHENSIVE METABOLIC STAT 09/12/2019 PANEL 1:41 PM CDT HC COMPLETE BLD COUNT STAT 09/12/2019 W/AUTO DIFF 1:41 PM CDT ECG 12-LEAD STAT 09/12/2019 1:36 PM CDT URINE CULTURE Routine 09/09/2019 12:47 PM CDT URINALYSIS SCREEN AND Routine 09/09/2019 MICROSCOPY, WITH REFLEX 12:23 PM CDT TO CULTURE POC GLUCOSE Routine 09/09/2019 11:46 AM CDT HEPATITIS B SURFACE STAT 09/09/2019 ANTIGEN 11:40 AM CDT HEMODIALYSIS Routine 09/09/2019 8:33 AM CDT POC GLUCOSE Routine 09/09/2019 6:21 AM CDT POC GLUCOSE Routine 09/08/2019 8:23 PM CDT POC GLUCOSE Routine 09/08/2019 5:30 PM CDT POC GLUCOSE Routine 09/08/2019 11:26 AM CDT POC GLUCOSE Routine 09/08/2019 6:21 AM CDT B NATRIURETIC PEPTIDE Routine 09/08/2019 4:54 AM CDT ESTIMATED GFR Routine 09/08/2019 4:54 AM CDT BASIC METABOLIC PANEL Routine 09/08/2019 4:54 AM CDT HC COMPLETE BLD COUNT Routine 09/08/2019 W/AUTO DIFF 4:54 AM CDT TROPONIN Timed 09/08/2019 4:54 AM CDT BLOOD CULTURE, AEROBIC & Routine 09/08/2019 ANAEROBIC 4:54 AM CDT BLOOD CULTURE, AEROBIC & Routine 09/08/2019 ANAEROBIC 4:54 AM CDT TROPONIN Timed 09/07/2019 11:45 PM CDT POC GLUCOSE Routine 09/07/2019 11:[address] CHEST WO CONTRAST STAT 09/07/2019 9:35 PM CDT B NATRIURETIC PEPTIDE Routine 09/07/2019 8:53 PM CDT ESTIMATED GFR STAT 09/07/2019 8:53 PM CDT TROPONIN STAT 09/07/2019 8:53 PM CDT COMPREHENSIVE METABOLIC STAT 09/07/2019 PANEL 8:53 PM CDT HC COMPLETE BLD COUNT STAT 09/07/2019 W/AUTO DIFF 8:53 PM CDT ECG 12-LEAD STAT 09/07/2019 8:44 PM CDT TROPONIN Timed 09/05/2019 5:19 PM CDT TROPONIN Timed 09/05/2019 2:27 PM CDT XR CHEST 1 VW PORTABLE STAT 09/05/2019 12:19 PM CDT ECG ED PRELIMINARY Routine 09/05/2019 INTERPRETATION 11:50 AM CDT ESTIMATED GFR STAT 09/05/2019 11:28 AM CDT B NATRIURETIC PEPTIDE STAT 09/05/2019 11:28 AM CDT TROPONIN STAT 09/05/2019 11:28 AM CDT COMPREHENSIVE METABOLIC STAT 09/05/2019 PANEL 11:28 AM CDT PARTIAL THROMBOPLASTIN STAT 09/05/2019 TIME (PTT) 11:28 AM CDT PROTHROMBIN TIME WITH INR STAT 09/05/2019 11:28 AM CDT HC COMPLETE BLD COUNT STAT 09/05/2019 W/AUTO DIFF 11:28 AM CDT ECG 12-LEAD STAT 09/05/2019 10:15 AM CDT HC COMPLETE BLD COUNT Routine 09/04/2019 W/AUTO DIFF 8:50 AM CDT ESTIMATED GFR Routine 09/04/2019 6:30 AM CDT MAGNESIUM LEVEL Routine 09/04/2019 6:30 AM CDT RENAL FUNCTION PANEL Routine 09/04/2019 6:30 AM CDT POC GLUCOSE Routine 09/04/2019 5:49 AM CDT POC GLUCOSE Routine 09/03/2019 9:09 PM CDT BLOOD CULTURE, AEROBIC & Routine 09/03/2019 ANAEROBIC 3:25 PM CDT POC GLUCOSE Routine 09/03/2019 3:18 PM CDT BLOOD CULTURE, AEROBIC & Routine 09/03/2019 ANAEROBIC 3:00 PM CDT POC GLUCOSE Routine 09/03/2019 11:07 AM CDT POC GLUCOSE Routine 09/03/2019 6:09 AM CDT LACTIC ACID LEVEL Routine 09/03/2019 5:52 AM CDT TROPONIN Timed 09/03/2019 5:52 AM CDT POC GLUCOSE Routine 09/03/2019 1:52 AM CDT TROPONIN Timed 09/03/2019 12:18 AM CDT XR CHEST 1 VW PORTABLE STAT 09/02/2019 9:42 PM CDT RESPIRATORY PATHOGEN Routine 09/02/2019 PANEL 9:40 PM CDT INFLUENZA ANTIGEN TEST, Routine 09/02/2019 REFLEX NEGATIVE TO RPP 9:40 PM CDT STREP SCREEN CULTURE Routine 09/02/2019 9:39 PM CDT GROUP A STREP, RAPID Routine 09/02/2019 ANTIGEN 9:39 PM CDT ESTIMATED GFR STAT 09/02/2019 9:25 PM CDT B NATRIURETIC PEPTIDE STAT 09/02/2019 9:25 PM CDT TROPONIN STAT 09/02/2019 9:25 PM CDT CREATINE KINASE, TOTAL STAT 09/02/2019 (CPK) 9:25 PM CDT COMPREHENSIVE METABOLIC STAT 09/02/2019 PANEL 9:25 PM CDT HC COMPLETE BLD COUNT STAT 09/02/2019 W/AUTO DIFF 9:25 PM CDT ECG 12-LEAD STAT 09/02/2019 9:12 PM CDT ECG ED PRELIMINARY Routine 09/02/2019 INTERPRETATION 9:11 PM CDT ESTIMATED GFR STAT 08/29/2019 8:13 AM CDT COMPREHENSIVE METABOLIC STAT 08/29/2019 PANEL 8:13 AM CDT HC COMPLETE BLD COUNT STAT 08/29/2019 W/AUTO DIFF 8:13 AM CDT HEMODIALYSIS Routine 08/29/2019 7:52 AM CDT VANCOMYCIN LEVEL, RANDOM Routine 08/29/2019 6:36 AM CDT POC GLUCOSE Routine 08/28/2019 7:40 PM CDT POC GLUCOSE Routine 08/28/2019 4:20 PM CDT POC GLUCOSE Routine 08/28/2019 11:48 AM CDT PREPARE RBC Routine 08/28/2019 11:28 AM CDT TYPE AND SCREEN Routine 08/28/2019 11:28 AM CDT MANUAL DIFFERENTIAL STAT 08/28/2019 7:44 AM CDT CBC WITH PLATELET AND STAT 08/28/2019 DIFFERENTIAL 7:44 AM CDT POC GLUCOSE Routine 08/28/2019 6:20 AM CDT MANUAL DIFFERENTIAL Routine 08/28/2019 6:07 AM CDT ESTIMATED GFR Routine 08/28/2019 6:07 AM CDT PROTHROMBIN TIME WITH INR Routine 08/28/2019 6:07 AM CDT PARTIAL THROMBOPLASTIN Routine 08/28/2019 TIME (PTT) 6:07 AM CDT COMPREHENSIVE METABOLIC Routine 08/28/2019 PANEL 6:07 AM CDT CBC WITH PLATELET AND Routine 08/28/2019 DIFFERENTIAL 6:07 AM CDT POC GLUCOSE Routine 08/27/2019 9:15 PM CDT POC GLUCOSE Routine 08/27/2019 5:14 PM CDT POC GLUCOSE Routine 08/27/2019 12:02 PM CDT ESTIMATED GFR Routine 08/27/2019 8:22 AM CDT COMPREHENSIVE METABOLIC Routine 08/27/2019 PANEL 8:22 AM CDT HC COMPLETE BLD COUNT Routine 08/27/2019 W/AUTO DIFF 8:22 AM CDT POC GLUCOSE Routine 08/27/2019 6:16 AM CDT POC GLUCOSE Routine 08/26/2019 7:47 PM CORPORATE LEGAL SECRETARY TROPONIN Timed 08/26/2019 7:35 PM CORPORATE LEGAL SECRETARY POC GLUCOSE Routine 08/26/2019 4:57 PM CORPORATE LEGAL SECRETARY HEPATITIS B SURFACE Routine 08/26/2019 ANTIGEN 3:27 PM CORPORATE LEGAL SECRETARY TROPONIN Timed 08/26/2019 1:20 PM CORPORATE LEGAL SECRETARY POC GLUCOSE Routine 08/26/2019 11:50 AM CORPORATE LEGAL SECRETARY BLOOD CULTURE, AEROBIC & Routine 08/26/2019 ANAEROBIC 8:45 AM CORPORATE LEGAL SECRETARY BLOOD CULTURE, AEROBIC & Routine 08/26/2019 ANAEROBIC 8:40 AM CORPORATE LEGAL SECRETARY TROPONIN STAT 08/26/2019 8:19 AM CORPORATE LEGAL SECRETARY HEMODIALYSIS Routine 08/26/2019 7:48 AM CORPORATE LEGAL SECRETARY ECG 12-LEAD STAT 08/26/2019 7:31 AM CORPORATE LEGAL SECRETARY US DUPLEX VENOUS UPPER STAT 08/26/2019 EXTREMITY LEFT 5:53 AM CORPORATE LEGAL SECRETARY TROPONIN Timed 08/26/2019 4:18 AM CORPORATE LEGAL SECRETARY TROPONIN Timed 08/26/2019 1:34 AM CORPORATE LEGAL SECRETARY CT ANGIOGRAM UPPER STAT 08/26/2019 EXTREMITY LEFT W WO 1:23 AM CORPORATE LEGAL SECRETARY CONTRAST ESTIMATED GFR STAT 08/25/2019 11:17 PM CORPORATE LEGAL SECRETARY PARTIAL THROMBOPLASTIN STAT 08/25/2019 TIME (PTT) 11:17 PM CORPORATE LEGAL SECRETARY PROTHROMBIN TIME WITH INR STAT 08/25/2019 11:17 PM CORPORATE LEGAL SECRETARY TROPONIN STAT 08/25/2019 11:17 PM CORPORATE LEGAL SECRETARY COMPREHENSIVE METABOLIC STAT 08/25/2019 PANEL 11:17 PM CORPORATE LEGAL SECRETARY HC COMPLETE BLD COUNT STAT 08/25/2019 W/AUTO DIFF 11:17 PM CORPORATE LEGAL SECRETARY POC GLUCOSE Routine 08/20/2019 1:45 PM CORPORATE LEGAL SECRETARY POC GLUCOSE Routine 08/20/2019 7:49 AM CORPORATE LEGAL SECRETARY POC GLUCOSE Routine 08/20/2019 6:11 AM CORPORATE LEGAL SECRETARY HEMOGLOBIN A1C Routine 08/20/2019 6:07 AM CORPORATE LEGAL SECRETARY ESTIMATED GFR Routine 08/20/2019 6:07 AM CORPORATE LEGAL SECRETARY BASIC METABOLIC PANEL Routine 08/20/2019 6:07 AM CORPORATE LEGAL SECRETARY HC COMPLETE BLD COUNT Routine 08/20/2019 W/AUTO DIFF 6:07 AM CORPORATE LEGAL SECRETARY TROPONIN Timed 08/20/2019 1:26 AM CORPORATE LEGAL SECRETARY HEMODIALYSIS Routine 08/20/2019 12:07 AM CORPORATE LEGAL SECRETARY HEPATITIS B SURFACE Routine 08/19/2019 ANTIGEN 10:40 PM CORPORATE LEGAL SECRETARY TROPONIN Timed 08/19/2019 10:40 PM CORPORATE LEGAL SECRETARY ECG ED PRELIMINARY Routine 08/19/2019 INTERPRETATION 8:46 PM CORPORATE LEGAL SECRETARY XR CHEST 1 VW STAT 08/19/2019 8:04 PM CORPORATE LEGAL SECRETARY ESTIMATED GFR STAT 08/19/2019 7:45 PM CORPORATE LEGAL SECRETARY B NATRIURETIC PEPTIDE STAT 08/19/2019 7:45 PM CORPORATE LEGAL SECRETARY TROPONIN STAT 08/19/2019 7:45 PM CORPORATE LEGAL SECRETARY COMPREHENSIVE METABOLIC STAT 08/19/2019 PANEL 7:45 PM CORPORATE LEGAL SECRETARY HC COMPLETE BLD COUNT STAT 08/19/2019 W/AUTO DIFF 7:45 PM CORPORATE LEGAL SECRETARY ECG 12-LEAD STAT 08/19/2019 6:51 PM CORPORATE LEGAL SECRETARY TROPONIN Timed 08/15/2019 7:37 PM CORPORATE LEGAL SECRETARY ECG ED PRELIMINARY Routine 08/15/2019 INTERPRETATION 6:46 PM CORPORATE LEGAL SECRETARY ESTIMATED GFR STAT 08/15/2019 5:15 PM CORPORATE LEGAL SECRETARY B NATRIURETIC PEPTIDE STAT 08/15/2019 5:15 PM CORPORATE LEGAL SECRETARY TROPONIN STAT 08/15/2019 5:15 PM CORPORATE LEGAL SECRETARY COMPREHENSIVE METABOLIC STAT 08/15/2019 PANEL 5:15 PM CORPORATE LEGAL SECRETARY HC COMPLETE BLD COUNT STAT 08/15/2019 W/AUTO DIFF 5:15 PM CORPORATE LEGAL SECRETARY ECG 12-LEAD STAT 08/15/2019 4:41 PM CORPORATE LEGAL SECRETARY POC GLUCOSE Routine 08/15/2019 4:33 PM CORPORATE LEGAL SECRETARY XR CHEST 1 VW PORTABLE STAT 08/10/2019 7:13 AM CORPORATE LEGAL SECRETARY TROPONIN Timed 08/10/2019 6:58 AM CORPORATE LEGAL SECRETARY ESTIMATED GFR STAT 08/10/2019 5:13 AM CORPORATE LEGAL SECRETARY B NATRIURETIC PEPTIDE STAT 08/10/2019 5:13 AM CORPORATE LEGAL SECRETARY TROPONIN STAT 08/10/2019 5:13 AM CORPORATE LEGAL SECRETARY COMPREHENSIVE METABOLIC STAT 08/10/2019 PANEL 5:13 AM CORPORATE LEGAL SECRETARY HC COMPLETE BLD COUNT STAT 08/10/2019 W/AUTO DIFF 5:13 AM CORPORATE LEGAL SECRETARY ECG ED PRELIMINARY Routine 08/10/2019 INTERPRETATION 4:44 AM CORPORATE LEGAL SECRETARY ECG 12-LEAD STAT 08/10/2019 4:07 AM CORPORATE LEGAL SECRETARY POTASSIUM LEVEL Routine 07/19/2019 12:55 PM CORPORATE LEGAL SECRETARY POC GLUCOSE Routine 07/19/2019 11:15 AM CORPORATE LEGAL SECRETARY POC GLUCOSE Routine 07/19/2019 6:06 AM CORPORATE LEGAL SECRETARY POC GLUCOSE Routine 07/18/2019 8:45 PM CORPORATE LEGAL SECRETARY POC GLUCOSE Routine 07/18/2019 4:16 PM CORPORATE LEGAL SECRETARY POC GLUCOSE Routine 07/18/2019 12:28 PM CORPORATE LEGAL SECRETARY HEPATITIS B SURFACE STAT 07/18/2019 ANTIGEN 10:06 AM CORPORATE LEGAL SECRETARY HEMODIALYSIS Routine 07/18/2019 7:56 AM CORPORATE LEGAL SECRETARY POC GLUCOSE Routine 07/18/2019 6:27 AM CORPORATE LEGAL SECRETARY HEMOGLOBIN A1C Routine 07/18/2019 5:54 AM CORPORATE LEGAL SECRETARY POTASSIUM LEVEL Timed 07/17/2019 10:40 PM CORPORATE LEGAL SECRETARY TROPONIN Timed 07/17/2019 10:40 PM CORPORATE LEGAL SECRETARY POC GLUCOSE Routine 07/17/2019 9:30 PM CORPORATE LEGAL SECRETARY TROPONIN Timed 07/17/2019 7:33 PM CORPORATE LEGAL SECRETARY XR CHEST 2 VW STAT 07/17/2019 5:53 PM [employer]GAL [employer]ARY ESTIMATED GFR STAT 07/17/2019 5:20 PM [employer]ATE [employer]GAL SE[employer]ARY B NATRIURETIC PEPTIDE STAT 07/17/2019 5:20 PM [employer]GAL SE[employer]ARY TROPONIN STAT 07/17/2019 5:20 PM [employer]GAL [employer]ARY COMPREHENSIVE METABOLIC STAT 07/17/2019 PANEL 5:20 PM [employer]ATE [employer]GAL [employer] HC COMPLETE BLD COUNT STAT 07/17/2019 W/AUTO DIFF 5:20 PM [employer]ARY ECG ED PRELIMINARY Routine 07/17/2019 INTERPRETATION 5:04 PM [employer]ATE [employer]GAL SECR[employer]ARY MA CRITICAL CARE, E/M Routine 07/17/2019 30-74 MINUTES 5:04 PM [employer]GAL [employer]ARY ECG 12-LEAD STAT 07/17/2019 4:31 PM [employer]GAL [employer]ARY HEPATITIS B SURFACE STAT 07/09/2019 ANTIGEN 6:45 PM [employer]ARY HEMODIALYSIS Routine 07/09/2019 4:32 PM [employer]GAL SE[employer]ARY POC GLUCOSE Routine 07/09/2019 4:03 PM [employer]GAL SE[employer]ARY POC GLUCOSE Routine 07/09/2019 11:39 AM CORPORATE LEGAL SECRETARY POC GLUCOSE Routine 07/09/2019 6:29 AM CORPORATE LEGAL SECRETARY B NATRIURETIC PEPTIDE Routine 07/09/2019 4:40 AM CORPORATE LEGAL SECRETARY ESTIMATED GFR Routine 07/09/2019 4:40 AM [employer]ATE [employer]GAL SE[employer]ARY BASIC METABOLIC PANEL Routine 07/09/2019 4:40 AM [employer]ATE [employer]GAL SE[employer]ARY HC COMPLETE BLD COUNT Routine 07/09/2019 W/AUTO DIFF 4:40 AM [employer]ATE [employer]GAL SE[employer]ARY TROPONIN Timed 07/08/2019 11:13 PM [employer]ATE [employer]GAL SE[employer]ARY POC GLUCOSE Routine 07/08/2019 9:50 PM [employer]ATE [employer]GAL SE[employer]ARY TROPONIN Timed 07/08/2019 8:10 PM [employer]ATE [employer]GAL SE[employer]ARY ECG 12-LEAD STAT 07/08/2019 6:56 PM [employer]ATE [employer]GAL SE[employer]ARY POC GLUCOSE Routine 07/08/2019 6:14 PM [employer]ATE [employer]GAL SE[employer]ARY XR CHEST 1 VW PORTABLE STAT 07/08/2019 5:41 PM [employer]ATE [employer]GAL SE[employer]ARY RESPIRATORY PATHOGEN Routine 07/08/2019 PANEL 5:26 PM [employer]ARY INFLUENZA ANTIGEN TEST, Routine 07/08/2019 REFLEX NEGATIVE TO RPP 5:26 PM [employer]PORATE [employer]GAL SE[employer]ARY ECG ED PRELIMINARY Routine 07/08/2019 INTERPRETATION 5:25 PM [employer]PORATE LEGAL SECRETARY MA CRITICAL CARE, E/M Routine 07/08/2019 30-74 MINUTES 5:25 PM [employer]GAL SE[employer]ARY ESTIMATED GFR STAT 07/08/2019 5:15 PM [employer]ATE [employer]GAL SE[employer]ARY B NATRIURETIC PEPTIDE STAT 07/08/2019 5:15 PM [employer]ATE [employer]GAL SE[employer]ARY TROPONIN STAT 07/08/2019 5:15 PM [employer]PORATE [employer]GAL SE[employer]ARY COMPREHENSIVE METABOLIC STAT 07/08/2019 PANEL 5:15 PM [employer]ATE [employer]GAL SE[employer]ARY HC COMPLETE BLD COUNT STAT 07/08/2019 W/AUTO DIFF 5:15 PM [employer]ATE LEGAL SE[employer]ARY ECG 12-LEAD STAT 07/08/2019 4:45 PM [employer]ATE [employer]GAL SECR[employer]ARY POC GLUCOSE Routine 06/29/2019 6:24 AM [employer]PORATE [employer]GAL SE[employer]ARY POC GLUCOSE Routine 06/28/2019 8:59 PM [employer]ATE [employer]GAL SE[employer]ARY POC GLUCOSE Routine 06/28/2019 3:55 PM [employer]ATE [employer]GAL SE[employer]ARY POC GLUCOSE Routine 06/28/2019 10:37 AM [employer]ATE [employer]GAL SE[employer]ARY TTE COMPLETE, WO Routine 06/28/2019 CONTRAST, W DOPPLER 8:00 AM [employer]PORATE [employer]GAL SE[employer]ARY ([id number]) ECG 12-LEAD Routine 06/28/2019 6:06 AM [employer]ATE [employer]GAL SE[employer]ARY POC GLUCOSE Routine 06/28/2019 6:04 AM [employer]ATE [employer]GAL SE[employer]ARY LIPID PANEL Routine 06/28/2019 5:41 AM [employer]ATE [employer]GAL SE[employer]ARY TROPONIN Timed 06/28/2019 5:41 AM CORPORATE [employer]GAL SECR[employer]ARY ESTIMATED GFR Routine 06/28/2019 5:41 AM [employer]GAL SE[employer]ARY COMPREHENSIVE METABOLIC Routine 06/28/2019 PANEL 5:41 AM [employer]ATE [employer]GAL SECR[employer]ARY HC COMPLETE BLD COUNT Routine 06/28/2019 W/AUTO DIFF 5:41 AM [employer]ATE [employer]GAL SE[employer]ARY ECG 12-LEAD Routine 06/28/2019 2:54 AM [employer]ATE [employer]GAL SECR[employer]ARY ECG 12-LEAD Routine 06/27/2019 11:46 PM CORPORATE [employer]GAL SE[employer]ARY TROPONIN Timed 06/27/2019 11:18 PM CORPORATE LEGAL SECRETARY ESTIMATED GFR STAT 06/27/2019 9:40 PM CORPORATE LEGAL SECRETARY B NATRIURETIC PEPTIDE STAT 06/27/2019 9:40 PM CORPORATE LEGAL SECRETARY TROPONIN STAT 06/27/2019 9:40 PM CORPORATE LEGAL SECRETARY COMPREHENSIVE METABOLIC STAT 06/27/2019 PANEL 9:40 PM CORPORATE LEGAL SECRETARY HC COMPLETE BLD COUNT STAT 06/27/2019 W/AUTO DIFF 9:40 PM CORPORATE LEGAL SECRETARY XR CHEST 1 VW PORTABLE STAT 06/27/2019 9:23 PM CORPORATE LEGAL SECRETARY ECG ED PRELIMINARY Routine 06/27/2019 INTERPRETATION 8:57 PM CORPORATE LEGAL SECRETARY ECG 12-LEAD STAT 06/27/2019 8:35 PM CORPORATE LEGAL SECRETARY POC GLUCOSE Routine 06/20/2019 11:26 AM CORPORATE LEGAL SECRETARY HEMODIALYSIS Routine 06/20/2019 7:10 AM CORPORATE LEGAL SECRETARY POC GLUCOSE Routine 06/20/2019 6:13 AM CORPORATE LEGAL SECRETARY POC GLUCOSE Routine 06/19/2019 8:57 PM CORPORATE LEGAL SECRETARY POC GLUCOSE Routine 06/19/2019 3:54 PM CORPORATE LEGAL SECRETARY POC GLUCOSE Routine 06/19/2019 11:45 AM CORPORATE LEGAL SECRETARY POC GLUCOSE Routine 06/19/2019 6:21 AM CORPORATE LEGAL SECRETARY ESTIMATED GFR Routine 06/19/2019 6:02 AM CORPORATE LEGAL SECRETARY BASIC METABOLIC PANEL Routine 06/19/2019 6:02 AM CORPORATE LEGAL SECRETARY HC COMPLETE BLD COUNT Routine 06/19/2019 W/AUTO DIFF 6:02 AM CORPORATE LEGAL SECRETARY POC GLUCOSE Routine 06/18/2019 8:40 PM CORPORATE LEGAL SECRETARY POC GLUCOSE Routine 06/18/2019 4:04 PM CORPORATE LEGAL SECRETARY POC GLUCOSE Routine 06/18/2019 11:13 AM CORPORATE LEGAL SECRETARY POC GLUCOSE Routine 06/18/2019 6:24 AM CORPORATE LEGAL SECRETARY POC GLUCOSE Routine 06/17/2019 8:48 PM CORPORATE LEGAL SECRETARY POC GLUCOSE Routine 06/17/2019 4:11 PM CORPORATE LEGAL SECRETARY POC GLUCOSE Routine 06/17/2019 11:17 AM CORPORATE LEGAL SECRETARY HEMODIALYSIS Routine 06/17/2019 8:03 AM CORPORATE LEGAL SECRETARY POC GLUCOSE Routine 06/17/2019 6:05 AM CORPORATE LEGAL SECRETARY ESTIMATED GFR Routine 06/17/2019 5:26 AM CORPORATE LEGAL SECRETARY BASIC METABOLIC PANEL Routine 06/17/2019 5:26 AM CORPORATE LEGAL SECRETARY POC GLUCOSE Routine 06/16/2019 8:15 PM CORPORATE LEGAL SECRETARY POC GLUCOSE Routine 06/16/2019 4:34 PM CORPORATE LEGAL SECRETARY POC GLUCOSE Routine 06/16/2019 11:33 AM CORPORATE LEGAL SECRETARY POC GLUCOSE Routine 06/16/2019 6:17 AM CORPORATE LEGAL SECRETARY ESTIMATED GFR Routine 06/16/2019 5:25 AM CORPORATE LEGAL SECRETARY RENAL FUNCTION PANEL Routine 06/16/2019 5:25 AM CORPORATE LEGAL SECRETARY MAGNESIUM LEVEL Routine 06/16/2019 5:25 AM CORPORATE LEGAL SECRETARY POC GLUCOSE Routine 06/15/2019 8:25 PM CORPORATE LEGAL SECRETARY POC GLUCOSE Routine 06/15/2019 4:00 PM CORPORATE LEGAL SECRETARY POC GLUCOSE Routine 06/15/2019 10:52 AM CORPORATE LEGAL SECRETARY HEMODIALYSIS Routine 06/15/2019 9:30 AM CORPORATE LEGAL SECRETARY POC GLUCOSE Routine 06/15/2019 6:43 AM CORPORATE LEGAL SECRETARY ESTIMATED GFR Routine 06/15/2019 4:44 AM CORPORATE LEGAL SECRETARY HC COMPLETE BLD COUNT Routine 06/15/2019 W/AUTO DIFF 4:44 AM CORPORATE LEGAL SECRETARY BASIC METABOLIC PANEL Routine 06/15/2019 4:44 AM CORPORATE LEGAL SECRETARY POC GLUCOSE Routine 06/15/2019 2:52 AM CORPORATE LEGAL SECRETARY POTASSIUM LEVEL Routine 06/15/2019 2:27 AM CORPORATE LEGAL SECRETARY POC GLUCOSE Routine 06/14/2019 11:57 PM CORPORATE LEGAL SECRETARY POC GLUCOSE Routine 06/14/2019 8:48 PM CORPORATE LEGAL SECRETARY ECG 12-LEAD STAT 06/14/2019 8:14 PM CORPORATE LEGAL SECRETARY POTASSIUM LEVEL Routine 06/14/2019 6:40 PM CORPORATE LEGAL SECRETARY POC GLUCOSE Routine 06/14/2019 4:07 PM CORPORATE LEGAL SECRETARY POTASSIUM LEVEL Routine 06/14/2019 11:24 AM CORPORATE LEGAL SECRETARY POC GLUCOSE Routine 06/14/2019 11:15 AM CORPORATE LEGAL SECRETARY POC GLUCOSE Routine 06/14/2019 6:24 AM CORPORATE LEGAL SECRETARY ESTIMATED GFR Routine 06/14/2019 5:48 AM CORPORATE LEGAL SECRETARY MAGNESIUM LEVEL Routine 06/14/2019 5:48 AM CORPORATE LEGAL SECRETARY RENAL FUNCTION PANEL Routine 06/14/2019 5:48 AM CORPORATE LEGAL SECRETARY HC COMPLETE BLD COUNT Routine 06/14/2019 W/AUTO DIFF 5:48 AM CORPORATE LEGAL SECRETARY POC GLUCOSE Routine 06/13/2019 8:21 PM CORPORATE LEGAL SECRETARY POC GLUCOSE Routine 06/13/2019 4:53 PM CORPORATE LEGAL SECRETARY POC GLUCOSE Routine 06/13/2019 11:39 AM CORPORATE LEGAL SECRETARY POC GLUCOSE Routine 06/13/2019 6:15 AM CORPORATE LEGAL SECRETARY ESTIMATED GFR Routine 06/13/2019 5:27 AM CORPORATE LEGAL SECRETARY RENAL FUNCTION PANEL Routine 06/13/2019 5:27 AM CORPORATE LEGAL SECRETARY MAGNESIUM LEVEL Routine 06/13/2019 5:27 AM CORPORATE LEGAL SECRETARY HC COMPLETE BLD COUNT Routine 06/13/2019 W/AUTO DIFF 5:27 AM CORPORATE LEGAL SECRETARY POC GLUCOSE Routine 06/12/2019 8:43 PM CORPORATE LEGAL SECRETARY POC GLUCOSE Routine 06/12/2019 3:58 PM CORPORATE LEGAL SECRETARY POC GLUCOSE Routine 06/12/2019 10:53 AM CORPORATE LEGAL SECRETARY POC GLUCOSE Routine 06/12/2019 6:27 AM CORPORATE LEGAL SECRETARY ESTIMATED GFR Routine 06/12/2019 4:35 AM CORPORATE LEGAL SECRETARY RENAL FUNCTION PANEL Routine 06/12/2019 4:35 AM CORPORATE LEGAL SECRETARY MAGNESIUM LEVEL Routine 06/12/2019 4:35 AM CORPORATE LEGAL SECRETARY HC COMPLETE BLD COUNT Routine 06/12/2019 W/AUTO DIFF 4:35 AM CORPORATE LEGAL SECRETARY POC GLUCOSE Routine 06/11/2019 8:05 PM CORPORATE LEGAL SECRETARY POC GLUCOSE Routine 06/11/2019 4:57 PM CORPORATE LEGAL SECRETARY POC GLUCOSE Routine 06/11/2019 12:20 PM CORPORATE LEGAL SECRETARY MRI BRAIN WO CONTRAST Routine 06/11/2019 12:02 PM CORPORATE LEGAL SECRETARY MANUAL DIFFERENTIAL Routine 06/11/2019 7:44 AM CORPORATE LEGAL SECRETARY ESTIMATED GFR Routine 06/11/2019 7:44 AM CORPORATE LEGAL SECRETARY MAGNESIUM LEVEL Routine 06/11/2019 7:44 AM CORPORATE LEGAL SECRETARY RENAL FUNCTION PANEL Routine 06/11/2019 7:44 AM CORPORATE LEGAL SECRETARY CBC WITH PLATELET AND Routine 06/11/2019 DIFFERENTIAL 7:44 AM CORPORATE LEGAL SECRETARY POC GLUCOSE Routine 06/11/2019 6:20 AM CORPORATE LEGAL SECRETARY POC GLUCOSE Routine 06/10/2019 8:52 PM CORPORATE LEGAL SECRETARY POC GLUCOSE Routine 06/10/2019 4:03 PM CORPORATE LEGAL SECRETARY PROTHROMBIN TIME WITH INR Routine 06/10/2019 3:56 PM CORPORATE LEGAL SECRETARY HEPATITIS B SURFACE STAT 06/10/2019 ANTIGEN 3:56 PM CORPORATE LEGAL SECRETARY ANTI XA, UNFRACTIONATED STAT 06/10/2019 3:56 PM CORPORATE LEGAL SECRETARY PARTIAL THROMBOPLASTIN Routine 06/10/2019 TIME (PTT) 3:56 PM CORPORATE LEGAL SECRETARY CT ANGIOGRAM NECK W WO Routine 06/10/2019 CONTRAST 2:50 PM CORPORATE LEGAL SECRETARY ESTIMATED GFR STAT 06/10/2019 2:50 PM CORPORATE LEGAL SECRETARY BASIC METABOLIC PANEL STAT 06/10/2019 2:50 PM CORPORATE LEGAL SECRETARY HC COMPLETE BLD COUNT STAT 06/10/2019 W/AUTO DIFF 2:50 PM CORPORATE LEGAL SECRETARY TROPONIN STAT 06/10/2019 2:50 PM CORPORATE LEGAL SECRETARY CT ANGIOGRAM HEAD W WO Routine 06/10/2019 CONTRAST 2:49 PM CORPORATE LEGAL SECRETARY CT STROKE BRAIN WO STAT 06/10/2019 CONTRAST 2:16 PM CORPORATE LEGAL SECRETARY POC GLUCOSE Routine 06/10/2019 2:02 PM CORPORATE LEGAL SECRETARY ECG 12-LEAD STAT 06/10/2019 1:52 PM CORPORATE LEGAL SECRETARY POC GLUCOSE Routine 06/10/2019 10:57 AM CORPORATE LEGAL SECRETARY GRAM STAIN Routine 06/10/2019 10:52 AM CORPORATE LEGAL SECRETARY URINE CULTURE Routine 06/10/2019 10:52 AM CORPORATE LEGAL SECRETARY URINALYSIS SCREEN AND Routine 06/10/2019 MICROSCOPY, WITH REFLEX 9:59 AM CORPORATE LEGAL SECRETARY TO CULTURE POC GLUCOSE Routine 06/10/2019 6:07 AM CORPORATE LEGAL SECRETARY POC GLUCOSE Routine 06/09/2019 8:38 PM CORPORATE LEGAL SECRETARY POC GLUCOSE Routine 06/09/2019 4:35 PM CORPORATE LEGAL SECRETARY INFLUENZA ANTIGEN Routine 06/09/2019 2:23 PM CORPORATE LEGAL SECRETARY RESPIRATORY PATHOGEN Routine 06/09/2019 PANEL 2:23 PM CORPORATE LEGAL SECRETARY POC GLUCOSE Routine 06/09/2019 11:31 AM CORPORATE LEGAL SECRETARY TROPONIN Timed 06/09/2019 10:11 AM CORPORATE LEGAL SECRETARY POC GLUCOSE Routine 06/09/2019 6:16 AM CORPORATE LEGAL SECRETARY ESTIMATED GFR Routine 06/09/2019 4:45 AM CORPORATE LEGAL SECRETARY BASIC METABOLIC PANEL Routine 06/09/2019 4:45 AM CORPORATE LEGAL SECRETARY HC COMPLETE BLD COUNT Routine 06/09/2019 W/AUTO DIFF 4:45 AM CORPORATE LEGAL SECRETARY TROPONIN Timed 06/09/2019 4:45 AM CORPORATE LEGAL SECRETARY ESTIMATED GFR STAT 06/08/2019 10:17 PM CORPORATE LEGAL SECRETARY B NATRIURETIC PEPTIDE STAT 06/08/2019 10:17 PM CORPORATE LEGAL SECRETARY TROPONIN STAT 06/08/2019 10:17 PM CORPORATE LEGAL SECRETARY COMPREHENSIVE METABOLIC STAT 06/08/2019 PANEL 10:17 PM CORPORATE LEGAL SECRETARY HC COMPLETE BLD COUNT STAT 06/08/2019 W/AUTO DIFF 10:17 PM CORPORATE LEGAL SECRETARY XR CHEST 1 VW STAT 06/08/2019 10:16 PM CORPORATE LEGAL SECRETARY ECG 12-LEAD STAT 06/08/2019 8:38 PM CORPORATE LEGAL SECRETARY XR CHEST 2 VW STAT 06/07/2019 4:55 PM CORPORATE LEGAL SECRETARY ESTIMATED GFR STAT 06/07/2019 3:46 PM CORPORATE LEGAL SECRETARY B NATRIURETIC PEPTIDE STAT 06/07/2019 3:46 PM CORPORATE LEGAL SECRETARY TROPONIN STAT 06/07/2019 3:46 PM CORPORATE LEGAL SECRETARY COMPREHENSIVE METABOLIC STAT 06/07/2019 PANEL 3:46 PM CORPORATE LEGAL SECRETARY HC COMPLETE BLD COUNT STAT 06/07/2019 W/AUTO DIFF 3:46 PM CORPORATE LEGAL SECRETARY ECG ED PRELIMINARY Routine 06/07/2019 INTERPRETATION 3:33 PM CORPORATE LEGAL SECRETARY ECG 12-LEAD STAT 06/07/2019 3:30 PM CORPORATE LEGAL SECRETARY POC GLUCOSE Routine 06/03/2019 4:38 PM CORPORATE LEGAL SECRETARY HEPATITIS B SURFACE STAT 06/03/2019 ANTIGEN 1:52 PM CORPORATE LEGAL SECRETARY HEMODIALYSIS Routine 06/03/2019 11:47 AM CORPORATE LEGAL SECRETARY POC GLUCOSE Routine 06/03/2019 11:16 AM CORPORATE LEGAL SECRETARY POC GLUCOSE Routine 06/03/2019 6:25 AM CORPORATE LEGAL SECRETARY POC GLUCOSE Routine 06/02/2019 9:00 PM CORPORATE LEGAL SECRETARY POC GLUCOSE Routine 06/02/2019 4:13 PM CORPORATE LEGAL SECRETARY POC GLUCOSE Routine 06/02/2019 10:48 AM CORPORATE LEGAL SECRETARY TROPONIN, I-STAT Timed 06/02/2019 7:56 AM CORPORATE LEGAL SECRETARY ESTIMATED GFR Routine 06/02/2019 7:56 AM CORPORATE LEGAL SECRETARY B NATRIURETIC PEPTIDE Routine 06/02/2019 7:56 AM CORPORATE LEGAL SECRETARY BASIC METABOLIC PANEL Routine 06/02/2019 7:56 AM CORPORATE LEGAL SECRETARY PROTHROMBIN TIME WITH INR Routine 06/02/2019 7:56 AM CORPORATE LEGAL SECRETARY HC COMPLETE BLD COUNT Routine 06/02/2019 W/AUTO DIFF 7:56 AM CORPORATE LEGAL SECRETARY POC GLUCOSE Routine 06/02/2019 6:24 AM CORPORATE LEGAL SECRETARY GRAM STAIN STAT 06/01/2019 9:23 PM CORPORATE LEGAL SECRETARY URINE CULTURE STAT 06/01/2019 9:23 PM CORPORATE LEGAL SECRETARY XR CHEST 1 VW STAT 06/01/2019 9:13 PM CORPORATE LEGAL SECRETARY URINALYSIS SCREEN AND STAT 06/01/2019 MICROSCOPY, WITH REFLEX 8:43 PM CORPORATE LEGAL SECRETARY TO CULTURE ECG ED PRELIMINARY Routine 06/01/2019 INTERPRETATION 8:14 PM CORPORATE LEGAL SECRETARY ESTIMATED GFR STAT 06/01/2019 8:00 PM CORPORATE LEGAL SECRETARY B NATRIURETIC PEPTIDE STAT 06/01/2019 8:00 PM CORPORATE LEGAL SECRETARY TROPONIN STAT 06/01/2019 8:00 PM CORPORATE LEGAL SECRETARY COMPREHENSIVE METABOLIC STAT 06/01/2019 PANEL 8:00 PM CORPORATE LEGAL SECRETARY PARTIAL THROMBOPLASTIN STAT 06/01/2019 TIME (PTT) 8:00 PM CORPORATE LEGAL SECRETARY PROTHROMBIN TIME WITH INR STAT 06/01/2019 8:00 PM CORPORATE LEGAL SECRETARY HC COMPLETE BLD COUNT STAT 06/01/2019 W/AUTO DIFF 8:00 PM CORPORATE LEGAL SECRETARY ECG 12-LEAD STAT 06/01/2019 7:25 PM CORPORATE LEGAL SECRETARY POC GLUCOSE Routine 04/26/2019 12:28 PM CORPORATE LEGAL SECRETARY POC GLUCOSE Routine 04/26/2019 11:06 AM CORPORATE LEGAL SECRETARY POC GLUCOSE Routine 04/26/2019 6:00 AM CORPORATE LEGAL SECRETARY HEPATITIS B SURFACE STAT 04/25/2019 ANTIGEN 10:47 PM CORPORATE LEGAL SECRETARY POC GLUCOSE Routine 04/25/2019 9:32 PM CORPORATE LEGAL SECRETARY POC GLUCOSE Routine 04/25/2019 8:28 PM CORPORATE LEGAL SECRETARY POC GLUCOSE Routine 04/25/2019 5:11 PM CORPORATE LEGAL SECRETARY POC GLUCOSE Routine 04/25/2019 12:46 PM CORPORATE LEGAL SECRETARY HEMODIALYSIS Routine 04/25/2019 9:18 AM CORPORATE LEGAL SECRETARY HEPATITIS B SURFACE STAT 04/25/2019 ANTIGEN 8:18 AM CORPORATE LEGAL SECRETARY POC GLUCOSE Routine 04/25/2019 6:35 AM CORPORATE LEGAL SECRETARY POC GLUCOSE Routine 04/24/2019 8:08 PM CORPORATE LEGAL SECRETARY GRAM STAIN STAT 04/24/2019 3:02 PM CORPORATE LEGAL SECRETARY URINE CULTURE STAT 04/24/2019 3:02 PM CORPORATE LEGAL SECRETARY URINALYSIS SCREEN AND STAT 04/24/2019 MICROSCOPY, WITH REFLEX 2:16 PM CORPORATE LEGAL SECRETARY TO CULTURE POC GLUCOSE Routine 04/24/2019 11:01 AM CORPORATE LEGAL SECRETARY POC GLUCOSE Routine 04/24/2019 6:11 AM CORPORATE LEGAL SECRETARY LACTIC ACID LEVEL, SEPSIS Timed 04/24/2019 - NOW AND REPEAT 2X EVERY 1:43 AM CORPORATE LEGAL SECRETARY 3 HOURS TROPONIN Timed 04/24/2019 1:43 AM CORPORATE LEGAL SECRETARY POC GLUCOSE Routine 04/23/2019 9:25 PM CORPORATE LEGAL SECR[employer]ARY CT HEAD WO CONTRAST STAT 04/23/2019 7:27 PM CORPORATE LEGAL SECRETARY ESTIMATED GFR STAT 04/23/2019 6:38 PM CORPORATE LEGAL SECRETARY ALCOHOL LEVEL, BLOOD STAT 04/23/2019 6:38 PM CORPORATE LEGAL SECRETARY LACTIC ACID LEVEL, SEPSIS STAT 04/23/2019 - NOW AND REPEAT 2X EVERY 6:38 PM CORPORATE LEGAL SECRETARY 3 HOURS LIPASE LEVEL STAT 04/23/2019 6:38 PM CORPORATE LEGAL SECRETARY CREATINE KINASE, TOTAL STAT 04/23/2019 (CPK) 6:38 PM CORPORATE LEGAL SECRETARY B NATRIURETIC PEPTIDE STAT 04/23/2019 6:38 PM CORPORATE LEGAL SECRETARY TROPONIN STAT 04/23/2019 6:38 PM CORPORATE LEGAL SECRETARY COMPREHENSIVE METABOLIC STAT 04/23/2019 PANEL 6:38 PM CORPORATE LEGAL SECRETARY PARTIAL THROMBOPLASTIN STAT 04/23/2019 TIME (PTT) 6:38 PM CORPORATE LEGAL SECRETARY PROTHROMBIN TIME WITH INR STAT 04/23/2019 6:38 PM CORPORATE LEGAL SECRETARY HC COMPLETE BLD COUNT STAT 04/23/2019 W/AUTO DIFF 6:38 PM CORPORATE LEGAL SECRETARY ECG ED PRELIMINARY Routine 04/23/2019 INTERPRETATION 6:29 PM CORPORATE LEGAL SECRETARY ECG 12-LEAD STAT 04/23/2019 6:23 PM CORPORATE LEGAL SECRETARY POC GLUCOSE Routine 04/21/2019 3:59 PM CDT POC GLUCOSE Routine 04/21/2019 11:14 AM CDT POC GLUCOSE Routine 04/21/2019 6:23 AM CDT POC GLUCOSE Routine 04/20/2019 8:25 PM CDT POC GLUCOSE Routine 04/20/2019 4:47 PM CDT POC GLUCOSE Routine 04/20/2019 1:53 PM CDT HEMODIALYSIS Routine 04/20/2019 9:23 AM CDT POC GLUCOSE Routine 04/20/2019 6:14 AM CDT POC GLUCOSE Routine 04/19/2019 9:06 PM CDT POC GLUCOSE Routine 04/19/2019 4:14 PM CDT POC GLUCOSE Routine 04/19/2019 2:30 PM CDT POC GLUCOSE Routine 04/19/2019 12:34 PM CDT POC GLUCOSE Routine 04/19/2019 6:32 AM CDT POC GLUCOSE Routine 04/18/2019 9:10 PM CDT POC GLUCOSE Routine 04/18/2019 4:45 PM CDT POC GLUCOSE Routine 04/18/2019 12:48 PM CDT HEMODIALYSIS Routine 04/18/2019 8:44 AM CDT POC GLUCOSE Routine 04/18/2019 6:21 AM CDT POC GLUCOSE Routine 04/17/2019 8:34 PM CDT POC GLUCOSE Routine 04/17/2019 4:12 PM CDT POC GLUCOSE Routine 04/17/2019 11:33 AM CDT ESTIMATED GFR STAT 04/17/2019 9:47 AM CDT BASIC METABOLIC PANEL STAT 04/17/2019 9:47 AM CDT HC COMPLETE BLD COUNT STAT 04/17/2019 W/AUTO DIFF 9:47 AM CDT POC GLUCOSE Routine 04/17/2019 6:54 AM CDT POC GLUCOSE Routine 04/16/2019 8:45 PM CDT POC GLUCOSE Routine 04/16/2019 3:40 PM CDT POC GLUCOSE Routine 04/16/2019 11:11 AM CDT POC GLUCOSE Routine 04/16/2019 6:17 AM CDT LIPID PANEL Routine 04/16/2019 5:41 AM CDT ESTIMATED GFR Routine 04/16/2019 5:41 AM CDT MAGNESIUM LEVEL Routine 04/16/2019 5:41 AM CDT RENAL FUNCTION PANEL Routine 04/16/2019 5:41 AM CDT POC GLUCOSE Routine 04/15/2019 9:24 PM CDT POC GLUCOSE Routine 04/15/2019 4:07 PM CDT TTE COMPLETE, WO Routine 04/15/2019 CONTRAST, W DOPPLER 2:54 PM CDT (63440) POC GLUCOSE Routine 04/15/2019 10:49 AM CDT HEPATITIS B SURFACE STAT 04/15/2019 ANTIGEN 9:00 AM CDT POC GLUCOSE Routine 04/15/2019 6:51 AM CDT ESTIMATED GFR Routine 04/15/2019 6:37 AM CDT COMPREHENSIVE METABOLIC Routine 04/15/2019 PANEL 6:37 AM CDT HC COMPLETE BLD COUNT Routine 04/15/2019 W/AUTO DIFF 6:37 AM CDT TROPONIN Timed 04/15/2019 3:52 AM CDT TROPONIN Timed 04/15/2019 12:11 AM CDT ECG 12-LEAD Routine 04/14/2019 11:58 PM CDT POC GLUCOSE Routine 04/14/2019 8:25 PM CDT TROPONIN Timed 04/14/2019 5:42 PM CDT XR CHEST 2 VW STAT 04/14/2019 5:07 PM CDT ESTIMATED GFR STAT 04/14/2019 4:00 PM CDT B NATRIURETIC PEPTIDE STAT 04/14/2019 4:00 PM CDT TROPONIN STAT 04/14/2019 4:00 PM CDT COMPREHENSIVE METABOLIC STAT 04/14/2019 PANEL 4:00 PM CDT HC COMPLETE BLD COUNT STAT 04/14/2019 W/AUTO DIFF 4:00 PM CDT ECG ED PRELIMINARY Routine 04/14/2019 INTERPRETATION 3:31 PM CDT ECG 12-LEAD STAT 04/14/2019 2:48 PM CDT POC GLUCOSE Routine 04/14/2019 2:43 PM CDT POC GLUCOSE Routine 04/12/2019 3:58 PM CDT POC GLUCOSE Routine 04/12/2019 10:57 AM CDT POC GLUCOSE Routine 04/12/2019 6:31 AM CDT POC GLUCOSE Routine 04/11/2019 8:39 PM CDT POC GLUCOSE Routine 04/11/2019 4:04 PM CDT POC GLUCOSE Routine 04/11/2019 11:00 AM CDT POC GLUCOSE Routine 04/11/2019 6:44 AM CDT POC GLUCOSE Routine 04/10/2019 8:47 PM CDT POC GLUCOSE Routine 04/10/2019 5:15 PM CDT XR CHEST 2 VW STAT 04/10/2019 4:45 PM CDT ESTIMATED GFR Routine 04/10/2019 9:10 AM CDT CBC HEMOGRAM Routine 04/10/2019 9:10 AM CDT BASIC METABOLIC PANEL Routine 04/10/2019 9:10 AM CDT POC GLUCOSE Routine 04/10/2019 6:14 AM CDT POC GLUCOSE Routine 04/09/2019 9:24 PM CDT POC GLUCOSE Routine 04/09/2019 3:58 PM CDT POC GLUCOSE Routine 04/09/2019 10:56 AM CDT POC GLUCOSE Routine 04/09/2019 6:15 AM CDT POC GLUCOSE Routine 04/08/2019 8:40 PM CDT POC GLUCOSE Routine 04/08/2019 3:59 PM CDT POC GLUCOSE Routine 04/08/2019 11:03 AM CDT POC GLUCOSE Routine 04/08/2019 6:27 AM CDT POC GLUCOSE Routine 04/07/2019 8:44 PM CDT POC GLUCOSE Routine 04/07/2019 4:20 PM CDT POC GLUCOSE Routine 04/07/2019 12:35 PM CDT HEMODIALYSIS Routine 04/07/2019 8:00 AM CDT POC GLUCOSE Routine 04/07/2019 6:32 AM CDT POC GLUCOSE Routine 04/06/2019 9:09 PM CDT POC GLUCOSE Routine 04/06/2019 4:11 PM CDT POC GLUCOSE Routine 04/06/2019 2:05 PM CDT MA AN PERIPHERAL BLOCK Routine 04/06/2019 PROCEDURE FOR PAIN 10:59 AM CDT POC GLUCOSE Routine 04/06/2019 10:17 AM CDT POC GLUCOSE Routine 04/06/2019 6:54 AM CDT ESTIMATED GFR Routine 04/06/2019 5:49 AM CDT HEMOGLOBIN A1C Routine 04/06/2019 5:49 AM CDT PARTIAL THROMBOPLASTIN Routine 04/06/2019 TIME (PTT) 5:49 AM CDT PROTHROMBIN TIME WITH INR Routine 04/06/2019 5:49 AM CDT HC COMPLETE BLD COUNT Routine 04/06/2019 W/AUTO DIFF 5:49 AM CDT BASIC METABOLIC PANEL Routine 04/06/2019 5:49 AM CDT POC GLUCOSE Routine 04/05/2019 8:22 PM CDT POC GLUCOSE Routine 04/05/2019 4:22 PM CDT HEMODIALYSIS Routine 04/05/2019 9:30 AM CDT POC GLUCOSE Routine 04/05/2019 6:31 AM CDT POC GLUCOSE Routine 04/04/2019 8:35 PM CDT POC GLUCOSE Routine 04/04/2019 4:04 PM CDT POC GLUCOSE Routine 04/04/2019 10:52 AM CDT POC GLUCOSE Routine 04/04/2019 8:46 AM CDT ESTIMATED GFR Routine 04/04/2019 6:20 AM CDT PARTIAL THROMBOPLASTIN Routine 04/04/2019 TIME (PTT) 6:20 AM CDT PROTHROMBIN TIME WITH INR Routine 04/04/2019 6:20 AM CDT TYPE AND SCREEN Routine 04/04/2019 6:20 AM CDT BASIC METABOLIC PANEL Routine 04/04/2019 6:20 AM CDT HC COMPLETE BLD COUNT Routine 04/04/2019 W/AUTO DIFF 6:20 AM CDT US GUIDED VASCULAR ACCESS STAT 04/03/2019 8:13 PM CDT IR TUNNELED DIALYSIS STAT 04/03/2019 CATHETER PLACEMENT 8:13 PM CDT HEMODIALYSIS Routine 04/03/2019 7:07 PM CDT POC GLUCOSE Routine 04/03/2019 4:32 PM CDT PARTIAL THROMBOPLASTIN STAT 04/03/2019 TIME (PTT) 1:04 PM CDT PROTHROMBIN TIME WITH INR STAT 04/03/2019 1:04 PM CDT US DUPLEX LIMITED LEFT Routine 04/03/2019 12:44 PM CDT POC GLUCOSE Routine 04/03/2019 11:00 AM CDT TTE COMPLETE, WO Routine 04/03/2019 CONTRAST, W DOPPLER 9:10 AM CDT (43416) HEPATITIS B SURFACE STAT 04/03/2019 ANTIGEN 8:03 AM CDT PHOSPHORUS LEVEL Routine 04/03/2019 6:33 AM CDT POC GLUCOSE Routine 04/03/2019 6:01 AM CDT POC GLUCOSE Routine 04/02/2019 8:59 PM CDT POC GLUCOSE Routine 04/02/2019 4:20 PM CDT URINALYSIS SCREEN AND STAT 04/02/2019 MICROSCOPY, WITH REFLEX 3:14 PM CDT TO CULTURE ESTIMATED GFR Routine 04/02/2019 2:19 PM CDT THYROID STIMULATING Routine 04/02/2019 HORMONE 2:19 PM CDT BASIC METABOLIC PANEL Routine 04/02/2019 2:19 PM CDT POC GLUCOSE Routine 04/02/2019 1:25 PM CDT TROPONIN Timed 04/02/2019 11:35 AM CDT TROPONIN Timed 04/02/2019 5:58 AM CDT POC GLUCOSE Routine 04/02/2019 4:50 AM CDT MRI BRAIN WO CONTRAST STAT 04/02/2019 1:[address] HEAD WO CONTRAST STAT 04/01/2019 11:45 PM CDT ALCOHOL LEVEL, BLOOD STAT 04/01/2019 10:36 PM CDT AMMONIA LEVEL STAT 04/01/2019 10:36 PM CDT XR CHEST 1 VW PORTABLE STAT 04/01/2019 10:11 PM CDT ECG ED PRELIMINARY Routine 04/01/2019 INTERPRETATION 9:56 PM CDT ESTIMATED GFR STAT 04/01/2019 9:54 PM CDT TROPONIN STAT 04/01/2019 9:54 PM CDT COMPREHENSIVE METABOLIC STAT 04/01/2019 PANEL 9:54 PM CDT HC COMPLETE BLD COUNT STAT 04/01/2019 W/AUTO DIFF 9:54 PM CDT B NATRIURETIC PEPTIDE STAT 04/01/2019 9:54 PM CDT ECG 12-LEAD STAT 04/01/2019 9:41 PM CDT XR LUMBAR SPINE 2 OR 3 VW STAT 02/21/2019 3:54 PM CDT ESTIMATED GFR STAT 02/21/2019 2:11 PM CDT COMPREHENSIVE METABOLIC STAT 02/21/2019 PANEL 2:11 PM CDT HC COMPLETE BLD COUNT STAT 02/21/2019 W/AUTO DIFF 2:11 PM CDT POC GLUCOSE Routine 02/12/2019 10:30 AM CDT POC GLUCOSE Routine 02/12/2019 6:10 AM CDT ESTIMATED GFR Routine 02/12/2019 4:31 AM CDT COMPREHENSIVE METABOLIC Routine 02/12/2019 PANEL 4:31 AM CDT HC COMPLETE BLD COUNT Routine 02/12/2019 W/AUTO DIFF 4:31 AM CDT POC GLUCOSE Routine 02/11/2019 10:28 PM CDT POC GLUCOSE Routine 02/11/2019 4:43 PM CDT POC GLUCOSE Routine 02/11/2019 2:02 PM CDT HEMODIALYSIS Routine 02/11/2019 9:23 AM CDT ESTIMATED GFR Routine 02/11/2019 6:45 AM CDT COMPREHENSIVE METABOLIC Routine 02/11/2019 PANEL 6:45 AM CDT HC COMPLETE BLD COUNT Routine 02/11/2019 W/AUTO DIFF 6:45 AM CDT POC GLUCOSE Routine 02/11/2019 5:59 AM CDT POC GLUCOSE Routine 02/10/2019 8:14 PM CDT POC GLUCOSE Routine 02/10/2019 3:37 PM CDT POC GLUCOSE Routine 02/10/2019 2:12 PM CDT POC GLUCOSE Routine 02/10/2019 10:42 AM CDT ESTIMATED GFR STAT 02/10/2019 7:03 AM CDT PROTHROMBIN TIME WITH INR STAT 02/10/2019 7:03 AM CDT PARTIAL THROMBOPLASTIN STAT 02/10/2019 TIME (PTT) 7:03 AM CDT TYPE AND SCREEN STAT 02/10/2019 7:03 AM CDT BASIC METABOLIC PANEL STAT 02/10/2019 7:03 AM CDT HC COMPLETE BLD COUNT STAT 02/10/2019 W/AUTO DIFF 7:03 AM CDT POC GLUCOSE Routine 02/10/2019 5:15 AM CDT POC GLUCOSE Routine 02/09/2019 9:06 PM CDT US DUPLEX LIMITED LEFT STAT 02/09/2019 5:48 PM CDT POC GLUCOSE Routine 02/09/2019 4:[address] ANGIOGRAM PE CHEST STAT 02/09/2019 12:52 PM CDT POC GLUCOSE Routine 02/09/2019 12:51 PM CDT ESTIMATED GFR Routine 02/09/2019 5:51 AM CDT BASIC METABOLIC PANEL Routine 02/09/2019 5:51 AM CDT HC COMPLETE BLD COUNT Routine 02/09/2019 W/AUTO DIFF 5:51 AM CDT POC GLUCOSE Routine 02/09/2019 5:49 AM CDT POC GLUCOSE Routine 02/08/2019 8:08 PM CDT HEMODIALYSIS Routine 02/08/2019 7:30 PM CDT TROPONIN Timed 02/08/2019 4:45 PM CDT POC GLUCOSE Routine 02/08/2019 4:18 PM CDT HEPATITIS B SURFACE STAT 02/08/2019 ANTIGEN 11:54 AM CDT TROPONIN Timed 02/08/2019 11:54 AM CDT POC GLUCOSE Routine 02/08/2019 9:58 AM CDT ECG 12-LEAD STAT 02/08/2019 8:27 AM CDT TROPONIN Timed 02/08/2019 7:05 AM CDT TROPONIN, I-STAT Timed 02/08/2019 2:28 AM CDT TROPONIN, I-STAT STAT 02/08/2019 1:26 AM CDT B NATRIURETIC PEPTIDE STAT 02/08/2019 1:26 AM CDT ESTIMATED GFR Routine 02/08/2019 1:26 AM CDT COMPREHENSIVE METABOLIC Routine 02/08/2019 PANEL 1:26 AM CDT HC COMPLETE BLD COUNT Routine 02/08/2019 W/AUTO DIFF 1:26 AM CDT XR CHEST 1 VW PORTABLE STAT 02/08/2019 12:53 AM CDT RESPIRATORY PATHOGEN Routine 02/08/2019 PANEL 12:48 AM CDT INFLUENZA ANTIGEN TEST, Routine 02/08/2019 REFLEX NEGATIVE TO RPP 12:48 AM CDT ECG ED PRELIMINARY Routine 02/08/2019 INTERPRETATION 12:42 AM CDT ECG 12-LEAD STAT 02/07/2019 11:50 PM CDT POC GLUCOSE Routine 02/04/2019 4:15 PM CDT POC GLUCOSE Routine 02/04/2019 11:06 AM CDT ESTIMATED GFR Routine 02/04/2019 6:21 AM CDT HC COMPLETE BLD COUNT Routine 02/04/2019 W/AUTO DIFF 6:21 AM CDT BASIC METABOLIC PANEL Routine 02/04/2019 6:21 AM CDT POC GLUCOSE Routine 02/04/2019 6:18 AM CDT POC GLUCOSE Routine 02/03/2019 8:53 PM CDT POC GLUCOSE Routine 02/03/2019 5:06 PM CDT CV PCI PERCUTANEOUS Routine 02/03/2019 CARDIAC ANGIOPLASTY 3:28 PM CDT CV LEFT HEART CATH Routine 02/03/2019 3:28 PM CDT ACTIVATED CLOTTING TIME Routine 02/03/2019 2:56 PM CDT ACTIVATED CLOTTING TIME Routine 02/03/2019 2:22 PM CDT POC GLUCOSE Routine 02/03/2019 10:46 AM CDT POC GLUCOSE Routine 02/03/2019 6:46 AM CDT ESTIMATED GFR Routine 02/03/2019 6:10 AM CDT BASIC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 Number [facility] DEPARTMENT OF [address] [place] [address] PATHOLOGY AND GENOMIC MEDICINE [facility] [address] [facility] [place] [address] HOSPITAL * Us duplex venous upper extremity (08/26/2019 5:53 AM CORPORATE LEGAL SECRETARY) Specimen Narrative Performed At EXAMINATION: US DUPLEX VENOUS UPPER EXTREMITY LEFT [facility] CLINICAL HISTORY: Arm swelling or clare n DVT suspected COMPARISON: None. TECHNIQUE: Grayscale, color Doppler, and spectral waveform analysis of the left upper extremity deep venous system was performed. Spectral Doppler evaluation of the contralateral subclav chanelle vein was also performed. FINDINGS: The left Internal jugular vein demonstr ates normal flow and compressibility. The left subclavian, axillary, brachial, ba silic, and forearm veins reveal no evidence of thrombosis. The veins demon strate normal Doppler flow and normal compressibility. The contralateral subclavian vein is patent . A brachial artery to cephalic vein fistula is patent. IMPRESSION: Normal left upper extremity venous Dopp ler examination. No sonographic evidence of deep venous thrombosis of the left u pper extremity. Patent left brachial artery to cephalic vein fistula. [id number] Procedure Note Interface, Radiology Results Incoming - 08/26/2019 6:01 AM CORPORATE LEGAL SECRETARY EXAMINATION: US DUPLEX VENOUS UPPER EXTREMITY LEFT CLINICAL HISTORY: Arm swelling or pain DVT suspected COMPARISON: None. TECHNIQUE: Grayscale, color Doppler, and spectral waveform analysis of the left upper extremity deep venous system was performed. Spectral Doppler evaluation of the contralateral subclavian vein was also performed. FINDINGS: The left Internal jugular vein demonstrates normal flow and compressibility. The left subclavian, axillary, brachial, basilic, and forearm veins reveal no evidence of thrombosis. The veins demonstrate normal Doppler flow and normal compressibility. The contralateral subclavian vein is patent. A brachial artery to cephalic vein fistula is patent. IMPRESSION: Normal left upper extremity venous Doppler examination. No sonographic evidence of deep venous thrombosis of the left upper extremity. Patent left brachial artery to cephalic vein fistula. [id number] Performing Organization Address City/State/Zipcode Ph one Number [facility] [address] [place] [address] * CTA Upper Extremity Left W Wo Contrast (08/26/2019 1:23 AM CORPORATE LEGAL SECRETARY) Specimen Narrative Performed At EXAMINATION: CT ANGIOGRAM UPPER EXTREMITY LEFT W WO CONTRAST [facility] CLINICAL HISTORY: swelling diffusely in left arm around fistula COMPARISON: None. TECHNIQUE: CT angiographic images of th e left upper extremity were obtained during intravenous administration of io dinated contrast. Computerized reformatted images, MIP images, and 3-D volume rendered images were also obtained. CT imaging was performed with iterative reconstruction technique s and/or automated exposure control to reduce radiation dose. FINDINGS: A brachial arterial to basilic vein fis alejandra is seen and is patent. Contrast is noted within the left subclavian vein e xtending into the axillary vein, likely secondary to the patent AV fistula and retrograde flow. No contrast is seen within the cephalic vein and brachial veins, likely seconda ry to timing of contrast bolus. Noncalcific plaque along the proximal b rachial artery causes moderate stenosis. Calcific plaque along the left subclavi an artery also causes moderate stenosis. There is scattered atherosclerotic calc ification along the ulnar artery with multifocal areas of mild to moderate st enosis. The radial artery is small in caliber, but appears patent. The proposition player ior interosseous artery is also small in caliber, but appears patent. There is extensive subcutaneous soft ti ssue edema along the left upper extremity at the level of the elbow extending elvira ng the forearm as well as along the level of the mid/distal humerus. There is mil d adjacent skin thickening along the posterior aspect of the elbow. No well-defined fluid col lections are identified. No acute or aggressive osseous lesion i s seen. Changes of median sternotomy are partially visualized. Partially visualized. A small left pleu ral effusion is partially seen. Atelectatic changes are seen dependentl y in both partially visualized lungs. IMPRESSION: Patent left brachial-basilic AV fistula . No contrast is seen within the cephalic and brachial veins as well as a venous structures of the left upper extremity, likely due to timing of contrast bolus. Extensive soft tissue edema/swelling al nurys the anterior and posterior aspects of the left upper extremity centered about the elbow with mild adjacent posterior skin thickening, suggesting cellulitis. No well-defined fluid collection identified. Focal regions of moderate stenosis beena g the left subclavian artery and proximal brachial artery with multifocal areas o f mild to moderate stenosis along the ulnar artery. Procedure Note Hm Interface, Radiology Results - 08/26/2019 1:43 AM CORPORATE LEGAL SECRETARY EXAMINATION: CT ANGIOGRAM UPPER EXTREMITY LEFT W WO CONTRAST CLINICAL HISTORY: swelling diffusely in left arm around fistula COMPARISON: None. TECHNIQUE: CT angiographic images of the left upper extremity were obtained during intravenous administration of iodinated contrast. Computerized reformatted images, MIP images, and 3-D volume rendered images were also obtained. CT imaging was performed with iterative reconstruction techniques and/or automated exposure control to reduce radiation dose. FINDINGS: A brachial arterial to basilic vein fistula is seen and is patent. Contrast is noted within the left subclavian vein extending into the axillary vein, likely secondary to the patent AV fistula and retrograde flow. No contrast is seen within the cephalic vein and brachial veins, likely secondary to timing of contrast bolus. Noncalcific plaque along the proximal brachial artery causes moderate stenosis. Calcific plaque along the left subclavian artery also causes moderate stenosis. There is scattered atherosclerotic calcification along the ulnar artery with multifocal areas of mild to moderate stenosis. The radial artery is small in caliber, but appears patent. The posterior interosseous artery is also small in caliber, but appears patent. There is extensive subcutaneous soft tissue edema along the left upper extremity at the level of the elbow extending along the forearm as well as along the level of the mid/distal humerus. There is mild adjacent skin thickening along the posterior aspect of the elbow. No well-defined fluid collections are identified. No acute or aggressive osseous lesion is seen. Changes of median sternotomy are partially visualized. Partially visualized. A small left pleural effusion is partially seen. Atelectatic changes are seen dependently in both partially visualized lungs. IMPRESSION: Patent left brachial-basilic AV fistula. No contrast is seen within the cephalic and brachial veins as well as a venous structures of the left upper extremity, likely due to timing of contrast bolus. Extensive soft tissue edema/swelling along the anterior and posterior aspects of the left upper extremity centered about the elbow with mild adjacent posterior skin thickening, suggesting cellulitis. No well-defined fluid collection identified. Focal regions of moderate stenosis along the left subclavian artery and proximal brachial artery with multifocal areas of mild to moderate stenosis along the ulnar artery. Performing Organization Address City/State/Zipcode Ph one Number [facility] [address] [place] [address] * XR Chest 1 Vw (08/19/2019 8:04 PM CORPORATE LEGAL SECRETARY) Only the most recent of 4 results within the time period is included. Specimen Narrative Performed At EXAMINATION: XR CHEST 1 VW [facility] CLINICAL HISTORY: SOB COMPARISON: August 10, 2019 chest IMPRESSION: Stable appearance of the chest Left lower lobe infiltrate and or scarr ing with small costophrenic angle effusion as on previous. Stable cardiomegaly. Atherosclerosis an d sternotomy wires as before. CABG clips unchanged Right IJ dialysis catheter projected ov er right atrium No pneumothorax Single view chest. . [id number] Procedure Note Interface, Radiology Results Incoming - 08/19/2019 8:08 PM CORPORATE LEGAL SECRETARY EXAMINATION: XR CHEST 1 VW CLINICAL HISTORY: SOB COMPARISON: August 10, 2019 chest IMPRESSION: Stable appearance of the chest Left lower lobe infiltrate and or scarring with small costophrenic angle effusion as on previous. Stable cardiomegaly. Atherosclerosis and sternotomy wires as before. CABG clips unchanged Right IJ dialysis catheter projected over right atrium No pneumothorax Single view chest. . [id number] Performing Organization Address [facility] one Number [facility] [address] [place] [address] * Potassium level (07/19/2019 12:55 PM CORPORATE LEGAL SECRETARY) Only the most recent of 6 results within the time period is included. Potassium 4.9 3.5 - 5.0 mEq/L [facility] Specimen Plasma specimen Performing Organization Address City/[facility] one Number [facility] DEPARTMENT OF [address] [place] [id number] PATHOLOGY AND GENOMIC MEDICINE [facility] [address] [facility] [place] [address] HOSPITAL * XR Chest 2 Vw (07/17/2019 5:53 PM CORPORATE LEGAL SECRETARY) Only the most recent of 4 results within the time period is included. Specimen Narrative Performed At EXAMINATION: XR CHEST 2 VW [facility] CLINICAL HISTORY: sob COMPARISON: Most Recent Prior at [facility] IMPRESSION: Lines: Right IJ dual-lumen dialysis cat heter terminates at the cavoatrial junction. Lungs and pleura: Trace left effusion a nd left basilar atelectasis. No pneumothorax. Heart and mediastinum: Stable appearanc e of cardiomediastinal silhouette. Post CABG changes in median sternotomy. Bones: Thoracic spondylosis [id number] Procedure Note Interface, Radiology Results Incoming - 07/17/2019 5:58 PM CORPORATE LEGAL SECRETARY EXAMINATION: XR CHEST 2 VW CLINICAL HISTORY: sob COMPARISON: Most Recent Prior at [facility] IMPRESSION: Lines: Right IJ dual-lumen dialysis catheter terminates at the cavoatrial junction. Lungs and pleura: Trace left effusion and left basilar atelectasis. No pneumothorax. Heart and mediastinum: Stable appearance of cardiomediastinal silhouette. Post CABG changes in median sternotomy. Bones: Thoracic spondylosis [id number] Performing Organization Address City/State/Zipcode Ph one Number [facility] [address] [place] [address] * CRITICAL CARE (07/17/2019 5:04 PM CORPORATE LEGAL SECRETARY) Narrative Performed At Antwon Olvera MD 07/18/2019 4 :47 PM Critical Care Performed by: Antwon Olvera MD Authorized by: Antwon Olvera MD Critical care provider statement: Critical care time (minutes): 35 Critical care time was exclusive of: Separately billable procedures and treating other patients Critical care was necessary to treat or prevent imminent or life-threatening deterioration of the f ollowing conditions: Cardiac failure (HTN emergency) Critical care was time spent personal ly by me on the following activities: Discussions with consulta nts, evaluation of patient's response to treatment, examination of p atient, obtaining history from patient or surrogate, review of old mikayla rts, re-evaluation of patient's condition, ordering and review of labor atory studies, ordering and performing treatments and interventions , blood draw for specimens and development of treatment plan with macie ent or surrogate [place] 'yes' if you are taking over cri tical care for this patient from another provider.: no * CRITICAL CARE (07/08/2019 5:25 PM CORPORATE LEGAL SECRETARY) Narrative Performed At Deshaun Figueroa MD 2019 3:25 PM Critical Care Performed by: Deshaun Figueroa MD Authorized by: Deshaun Figueroa MD Critical care provider statement: Critical care time (minutes): 35 Critical care time was exclusive of: Separately billable procedures and treating other patients Critical care was necessary to treat or prevent imminent or life-threatening deterioration of the f ollowing conditions: Metabolic crisis Critical care was time spent personal ly by me on the following activities: Development of treatment plan with patient or surrogate, blood draw for specimens, discussions w [facility] consultants, evaluation of patient's response to treatment, examin ation of patient, interpretation of cardiac output measurements, obtaining history from patient or surrogate, ordering and performing treatments and interventions, ordering and review of laboratory studies, ordering and rev iew of radiographic studies, pulse oximetry, re-evaluation of patient's co ndition and review of old charts [place] 'yes' if you are taking over cri tical care for this patient from another provider.: no * Echocardiogram complete w contrast and 3D if needed (06/28/2019 8:00 AM CORPORATE LEGAL SECRETARY) Ao Root 3.43 cm [facility] Diameter AoV Area, Vmax 2.63 cm2 [facility] AoV Area, VTI 2.68 cm2 [facility] AoV Mean PG 3.82 mmHg [facility] AoV Peak PG 6.11 mmHg [facility] AoV Vmax 1.24 m/s [facility] AoV VTI 0.27 m [facility] BSA Miranda 1.98 m2 [facility] BSA 1.95 m2 [facility] IVS,d 1.39 cm [facility] IVS/LVPW,2D 1.07 [facility] Left Atrium 3.11 cm [facility] Dimension Anterior LV,d 4.26 cm [facility] LV EF,2D 74.14 % [facility] LV,s 2.71 cm [facility] LVOT area 3.53 cm2 [facility] LVOT Diam,S 2.12 cm [facility] LVOT Vmax 0.99 m/s [facility] LVOT VTI 0.22 m [facility] LVPWD,d 1.30 cm [facility] PV Pk Grad 3.54 mmHg [facility] PV VMAX 0.94 m/s [facility] MV E A ratio 0.66 [facility] AoV area i VTI 1.37 cm2/m2 [facility] BSA Hilaria BMI 25.84 kg/m2 [facility] E wave 171.87 msec [facility] decelartion time MV Peak A Martín 1.19 m/s [facility] MV valve area p 4.41 cm2 [facility] 1/2 method MV Peak E Martín 0.79 m/s [facility] MV stenosis 49.84 ms [facility] pressure 1/2 time AV LVOT peak 3.38 mmHg [facility] gradient Ascending aorta 3.11 cm [facility] Ao Root 3.43 cm [facility] Diameter LV SYS VOL 27.33 ml [facility] LV STEPHENSON VOL 81.17 ml [facility] LA area s A4C 15.96 cm2 [facility] LV SI Teich 2D 27.58 ml/m2 [facility] LV SV Teich 2D 53.84 ml [facility] LV Vol s Teich 27.33 ml [facility] PSAX LVOT CI 2.92 l/min/m2 [facility] LVOT CO 5.71 l/min [facility] LVOT HR for 79.62 bpm [facility] LVOT CO LVOT SI 36.72 ml/m2 [facility] BSA [place]cock 1.98 m2 [facility] AoV Vmn 0.94 [facility] IVS s 2D 1.32 [facility] LV FS Teich 2D 36.29 [facility] MV AE ratio 1.51 [facility] LV FS Cube 2D 36.29 [facility] LVOT Vmn 0.75 [facility] Pt Size 175.26 [facility] Pt Wt 79.38 [facility] Aov area Vmn 2.59 cm2 [facility] LA A_P score P 0.08 [facility] LVOT mean grad 2.43 mmHg [facility] MAX Pred HR 147.74 [facility] 85 of MPHR 125.58 [facility] AoV area I VMN 1.33 cm2/m2 [facility] bsa Calc MPHR 147.74 bpm [facility] IVS pct thck -5.05 % [facility] PLAX LV SI Cube 2D 29.33 ml/m2 [facility] LV SV Cube 2D 57.24 ml [facility] LV vol d cube 77.20 ml [facility] 2D LV vol s cube 19.96 ml [facility] 2D LVPW pct thck 17.54 % [facility] PLAX LVPW s PLAX 1.53 cm [facility] MV Decel slope 4.58 m/s2 [facility] Pred Exer Dur 6.58 [facility] R1 Pred METS R1 5.31 [facility] LA Vol MOD A4C 41.27 ml [facility] Velocity Ratio 0.80 m/s [facility] (V1/V2) EF 66.33 % [facility] E/A ratio 0.66 [facility] Specimen Narrative Performed At [facility] Left ventricular systolic function i s normal. There is mild left ventricular darrel ntric hypertrophy. Left Ventricular ejection fraction i s 55 - 60%. Left atrium size is moderately dilat ed. The mitral valve appears thickened. Mild mitral annular calcification. Spectral Doppler shows impaired rela xation pattern of left ventricular diastolic filling. Performing Organization Address [facility] Ph one Number [facility] [address] [place] [address], * Lipid panel (06/28/2019 5:41 AM CORPORATE LEGAL SECRETARY) Only the most recent of 3 results within the time period is included. Cholesterol 185 0 - 199 mg/dL [facility] Triglycerides 151 (H) 0 - 149 mg/dL [facility] HDL cholesterol 38 (L) 40 - 9,999 mg/dL [facility] LDL cholesterol 140 (H)Comment: Result 0 - 99 mg/dL [facility] obtained by direct LDL ORIENTAL ORTHODOX measurement [facility] Lipid panel See below [facility] interpretation Comment: ORIENTAL ORTHODOX Total Cholesterol (mg/dL) [facility] Cholesterol [facility] (mg/dL) <200 Desirable <100 Optimal 200-239 Borderline-high [...] >20%) Multiple (2+) risk factors <130 (10-year risk =<20%) 0-1 risk factors <160 (<10-year risk) Defining levels of lipids in metabolic syndrome Triglycerides >=150 mg/dL HDL Cholesterol Men <40 mg/dL Women <50 mg/dL Non-HDL cholesterol is a second target for therapy in persons with high triglycerides (>=200 mg/dL) Specimen Plasma specimen Performing Organization Address City/[facility] one Number [facility] DEPARTMENT OF [address] [place] [address] PATHOLOGY AND GENOMIC MEDICINE [facility] [address] [place] [address] HOSPITAL * MRI Brain Wo Contrast (06/11/2019 12:02 PM CORPORATE LEGAL SECRETARY) Only the most recent of 2 results within the time period is included. Specimen Narrative Performed At [facility] EXAMINATION: MRI BRAIN WO CONTRAST CLINICAL HISTORY: Neuro deficit(s) subacute COMPARISON: March 2019. Technique: Multiplanar and multisequenc e MRI images of the brain are obtained without the use of ionic intravenous co ntrast. Sagittal axial and coronal images are obtained. Diffusion weighted sequen alfa are performed. No intravenous contrast was given. Findings: Diffusion weighted images demonstrates no evidence of any acute infarction. The visualized paranasal sinuses are cl ear. The globes and optic nerves are unremarkable. The posterior fossa does not demonstrat e any masses. The jo and midbrain did not demonstrate any masses. The ventricles are symmetrical without any mass effect. There is no evidence of any midline shift. There is no extra-ax ial fluid collection. The cerebral hemispheres demonstrate no intracranial hemorrhage or mass lesion. Periventricular ischemic white matter c hanges are present. The sella turcica is not enlarged. Visu alized portion of the upper cervical cord demonstrates no abnormality. IMPRESSION: 1. No acute intracranial abnormalitie s or mass lesions. 2. There is no parenchymal hemorrhage o r masses. 3. Periventricular ischemic white matte r changes are present. 4. There is no significant interval mikayla nge since the prior study from March 2013. [id number] Procedure Note Interface, Radiology Results Incoming - 06/11/2019 1:30 PM CORPORATE LEGAL SECRETARY EXAMINATION: MRI BRAIN WO CONTRAST CLINICAL HISTORY: Neuro deficit(s) subacute COMPARISON: March 2019. Technique: Multiplanar and multisequence MRI images of the brain are obtained without the use of ionic intravenous contrast. Sagittal axial and coronal images are obtained. Diffusion weighted sequences are performed. No intravenous contrast was given. Findings: Diffusion weighted images demonstrates no evidence of any acute infarction. The visualized paranasal sinuses are clear. The globes and optic nerves are unremarkable. The posterior fossa does not demonstrate any masses. The jo and midbrain did not demonstrate any masses. The ventricles are symmetrical without any mass effect. There is no evidence of any midline shift. There is no extra-axial fluid collection. The cerebral hemispheres demonstrate no intracranial hemorrhage or mass lesion. Periventricular ischemic white matter changes are present. The sella turcica is not enlarged. Visualized portion of the upper cervical cord demonstrates no abnormality. IMPRESSION: 1. No acute intracranial abnormalities or mass lesions. 2. There is no parenchymal hemorrhage or masses. 3. Periventricular ischemic white matter changes are present. 4. There is no significant interval emmanuel ge since the prior study from March 2013. [id number] Performing Organization Address City/[facility] Ph one Number [facility] [address] [place] [address] * Anti Xa, unfractionated (06/10/2019 3:56 PM CORPORATE LEGAL SECRETARY) Anti Xa, <0.10 (L)Comment: Therapeutic 0.30 - 0.70 U/mL [facility] unfractionated Range: 0.30 - 0.70 U/mL [facility] Specimen Blood Performing Organization Address City/[facility] Ph one Number [facility] DEPARTMENT OF [address] [place] [address] PATHOLOGY AND GENOMIC MEDICINE [address] * CTA Neck W Wo Contrast (06/10/2019 2:50 PM CORPORATE LEGAL SECRETARY) Specimen Narrative Performed At EXAMINATION: CT ANGIOGRAM NECK W WO CONTRAST INCLUD ING 3-D MIP RECONSTRUCTED [facility] IMAGING. CT IMAGING WAS PERFORMED WITH ITERATIVE RECONSTRUCTION TECHNIQUE AND/OR AUTOMATED EXPOSURE CONTROL TO REDUCE RA DIATION DOSE. CLINICAL HISTORY: Stroke follow up COMPARISON: None. FINDINGS: There is no significant abnormality dem onstrated in the brachiocephalic vasculature. There are minor atherosclerotic changes at the common carotid artery bifurcations but there is no significan t plaque formation or stenosis. Specifically there is no significant st enosis by NASCET criteria. There are tortuous looping cervical internal carotid arteries bilaterally. The vertebral arteries are symmetric in size. There is calcific atherosclerotic change with moderate stenosis in the mi d cervical portion of the left vertebral artery. There is also moderate degree o f stenosis in the V4 segments bilaterally. There is atherosclerotic calcification in the pr oximal left vertebral artery near the origin where there appears to be a mode rate degree of stenosis. There is otherwise no definite abnormality demon strated in the vertebral arteries. IMPRESSION: No significant carotid artery stenosis demonstrated. Bilateral vertebral artery stenoses. [id number] Procedure Note Hm Interface, Radiology Results Incoming - 06/10/2019 4:18 PM CORPORATE LEGAL SECRETARY EXAMINATION: CT ANGIOGRAM NECK W WO CONTRAST INCLUDING 3-D MIP RECONSTRUCTED IMAGING. CT IMAGING WAS PERFORMED WITH ITERATIVE RECONSTRUCTION TECHNIQUE AND/OR AUTOMATED EXPOSURE CONTROL TO REDUCE RADIATION DOSE. CLINICAL HISTORY: Stroke follow up COMPARISON: None. FINDINGS: There is no significant abnormality demonstrated in the brachiocephalic vasculature. There are minor atherosclerotic changes at the common carotid artery bifurcations but there is no significant plaque formation or stenosis. Specifically there is no significant stenosis by NASCET criteria. There are tortuous looping cervical internal carotid arteries bilaterally. The vertebral arteries are symmetric in size. There is calcific atherosclerotic change with moderate stenosis in the mid cervical portion of the left vertebral artery. There is also moderate degree of stenosis in the V4 segments bilaterally. There is atherosclerotic calcification in the proximal left vertebral artery near the origin where there appears to be a moderate degree of stenosis. There is otherwise no definite abnormality demonstrated in the vertebral arteries. IMPRESSION: No significant carotid artery stenosis demonstrated. Bilateral vertebral artery stenoses. [id number] Performing Organization Address City/State/Zipcode Ph one Number [facility] [address] [place] [address] * CTA Head W Wo Contrast (06/10/2019 2:49 PM CORPORATE LEGAL SECRETARY) Specimen Narrative Performed At EXAMINATION: CT ANGIOGRAM HEAD W WO CONTRAST [facility] CLINICAL HISTORY: Stroke. Follow up. Ev aluate for artery stenosis COMPARISON: CT brain from earlier tod ay TECHNIQUE: Imaging of the intracrania l circulation was obtained from the skull base to the vertex during the arterial phase of enhancement. Postprocessing was performed with MIP multiplanar and 3D r econstructed images. CT scans are performed using radiation dose reduction techniques. Te chnical factors are evaluated and adjusted to ensure appropriate moderati on of exposure. Automated dose management technology is applied to adjust radiati on exposure while achieving a diagnostic quality image. 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 This flow in the anterior leading artery region. There is severe stenosis in the distal right P1 segment and proximal right P2 segment. There is calcified plaque in the azul of the distal vertebral arteries with some beam hardening artifact obscuring details. There appears to be moderate stenosis on both sides at the craniover tebral junction. This can be further evaluated with MR angiogram or digital subtraction arteri ogram. The basilar artery and distal internal arteries do not show significa nt focal stenosis. I do not see definite evidence of an aneurysm or arteriovenou s malformation. IMPRESSION: Moderate stenosis in the distal bilater al vertebral arteries from calcified plaque with some beam hardening artifac ts obscuring details. This can be further evaluated with MR angiogram if indicate d. There is severe stenosis in the distal right P1 segment and proximal right P2 segment. [id number] Procedure Note Hm Interface, Radiology Results Incoming - 06/10/2019 4:53 PM CORPORATE LEGAL SECRETARY EXAMINATION: CT ANGIOGRAM HEAD W WO CONTRAST CLINICAL HISTORY: Stroke. Follow up. Evaluate for artery stenosis COMPARISON: CT brain from earlier today TECHNIQUE: Imaging of the intracranial circulation was obtained from the skull base to the vertex during the arterial phase of enhancement. Postprocessing was performed with MIP multiplanar and 3D reconstructed images. CT scans are performed using radiation dose reduction techniques. Technical factors are evaluated and adjusted to ensure appropriate moderation of exposure. Automated dose management technology is applied to adjust radiation exposure while achieving a diagnostic quality image. 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 This flow in the anterior leading artery region. There is severe stenosis in the distal right P1 segment and proximal right P2 segment. There is calcified plaque in the azul of the distal vertebral arteries with some beam hardening artifact obscuring details. There appears to be moderate stenosis on both sides at the craniovertebral junction. This can be further evaluated with MR angiogram or digital subtraction arteriogram. The basilar artery and distal internal arteries do not show significant focal stenosis. I do not see definite evidence of an aneurysm or arteriovenous malformation. IMPRESSION: Moderate stenosis in the distal bilateral vertebral arteries from calcified plaque with some beam hardening artifacts obscuring details. This can be further evaluated with MR angiogram if indicated. There is severe stenosis in the distal right P1 segment and proximal right P2 segment. [id number] Performing Organization Address City/State/Zipcode Ph one Number [facility] [address] [facility] [place] [address] * CT Stroke Brain Wo Contrast (06/10/2019 2:16 PM CORPORATE LEGAL SECRETARY) Specimen Narrative Performed At EXAMINATION: CT STROKE BRAIN WO CONTRAST [facility] CLINICAL HISTORY: Focal neuro deficit < 6 hrs stroke suspected, Altered level of consciousness (LOC) unexplai annita COMPARISON: CT head 04/23/2019 TECHNIQUE: Noncontrast head CT performe d using radiation dose reduction techniques. Technical factors are veto luated and adjusted to ensure appropriate moderation of exposure. Automated dos e management technology is applied to adjust radiation exposure while achieving a diagnostic quality im age. FINDINGS: No evidence of acute intracranial hemor rhage, mass, mass effect, midline shift, or acute infarct. Ventricles and sulci are normal in appe arance for patient's age. Basal cisterns are clear. Mild chronic microv ascular ischemic change. Intracranial vascular calcifications are present. Ca lvarium is intact. Bilateral lens extractions. No signific ant paranasal sinus mucosal thickening. Mastoid air cells are clear. IMPRESSION: 1. No CT evidence of acute intracranial abnormality. Findings were discussed with and acknow ledged by ANNIE Grant at 06/10/2019 2:18 PM who verbalized understanding. [id number] Procedure Note Hm Interface, Radiology Results Incoming - 06/10/2019 2:25 PM CORPORATE LEGAL SECRETARY EXAMINATION: CT STROKE BRAIN WO CONTRAST CLINICAL HISTORY: Focal neuro deficit < 6 hrs stroke suspected, Altered level of consciousness (LOC) unexplained COMPARISON: CT head 04/23/2019 TECHNIQUE: Noncontrast head CT performed using radiation dose reduction techniques. Technical factors are evaluated and adjusted to ensure appropriate moderation of exposure. Automated dose management technology is applied to adjust radiation exposure while achieving a diagnostic quality image. FINDINGS: No evidence of acute intracranial hemorrhage, mass, mass effect, midline shift, or acute infarct. Ventricles and sulci are normal in appearance for patient's age. Basal cisterns are clear. Mild chronic microvascular ischemic change. Intracranial vascular calcifications are present. Calvarium is intact. Bilateral lens extractions. No significant paranasal sinus mucosal thickening. Mastoid air cells are clear. IMPRESSION: 1. No CT evidence of acute intracranial abnormality. Findings were discussed with and acknowledged by ANNIE Grant at 06/10/2019 2:18 PM who verbalized understanding. [id number] Performing Organization Address City/State/Zipcode Ph one Number [facility] [address] [place] [address] * Gram stain (06/10/2019 10:52 AM CORPORATE LEGAL SECRETARY) Only the most recent of 3 results within the time period is included. [facility] Gram stain Moderate WBC's [place] result Few Gram positive cocci in ORIENTAL ORTHODOX [facility] HOSPITAL Comment: Specimen Information Specimen Source: Urine Specimen Site: Clean catch Specimen Urine Performing Organization Address [facility] Ph one Number [facility] DEPARTMENT OF [address] [place] [address] PATHOLOGY AND GENOMIC MEDICINE [facility] [address] [place] [address] HOSPITAL * Influenza antigen (06/09/2019 2:23 PM CORPORATE LEGAL SECRETARY) [facility] Influenza Negative for Influenza A/B [place] antigen antigen. [facility] Comment: [facility] Specimen Information HOSPITAL Specimen Source: Nasopharyngeal Specimen Site: Left Specimen Nasopharyngeal - Left Performing Organization Address [facility] Ph one Number [facility] DEPARTMENT OF [address] [place] [address] PATHOLOGY AND GENOMIC MEDICINE [facility] [address] * Troponin, I-Stat (06/02/2019 7:56 AM CORPORATE LEGAL SECRETARY) Only the most recent of 3 results within the time period is included. [facility] Troponin, 0.00 0.00 - 0.08 ng/mL [place] I-Stat Comment: ORIENTAL ORTHODOX 0.09 - 1.49 ng/ml [facility] May indicate increased risk HOSPITAL of acute coronary syndrome. >=1.5 ng/ml Consistent with acute myocardial infarction. The diagnostic value of a single normal or non-diagnostic result is questionable. Serial samples at 2-6 hour intervals are required to rule out acute myocardial injury. Specimen Plasma specimen Performing Organization Address [facility] one Number [facility] DEPARTMENT OF [address] [place] [address] PATHOLOGY AND GENOMIC MEDICINE [facility] [address] [facility] [address] * Alcohol level, blood (04/23/2019 6:38 PM CORPORATE LEGAL SECRETARY) Only the most recent of 2 results within the time period is included. [facility] Alcohol None Detected mg/dL [place] Comment: ORIENTAL ORTHODOX Normal [facility] None Detected HOSPITAL Legal Intoxication in [place] 80 mg/dL (0.08%) Toxic Concentration 200 mg/dL (0.2%) Potentially Fatal 350-500 mg/dL (0.35%-0.5%) Alcohol percent None Detected % [facility] Specimen Blood Performing Organization Address City/State/Zipcode Ph one Number [facility] DEPARTMENT OF [address] [place] [address] PATHOLOGY AND GENOMIC MEDICINE [facility] [address] [place] [address] HOSPITAL * Echocardiogram complete w contrast and 3D if needed (04/15/2019 2:54 PM CDT) Ao Root 2.88 cm [facility] Diameter AoV Area, Vmax 2.31 cm2 [facility] AoV Area, VTI 2.44 cm2 [facility] AoV Mean PG 2.59 mmHg [facility] AoV Peak PG 4.53 mmHg [facility] AoV Vmax 1.09 m/s [facility] AoV VTI 0.21 m [facility] BSA Miranda 1.94 m2 [facility] BSA 1.91 m2 [facility] IVS,d 1.35 cm [facility] IVS/LVPW,2D 1.45 [facility] Left Atrium 2.53 cm [facility] Dimension Anterior LV,d 4.13 cm [facility] LV EF,2D 64.79 % [facility] LV,s 3.07 cm [facility] LVOT area 2.95 cm2 [facility] LVOT Diam,S 1.94 cm [facility] LVOT Vmax 0.86 m/s [facility] LVOT VTI 0.17 m [facility] LVPWD,d 0.93 cm [facility] MV E A ratio 0.65 [facility] AoV area i VTI 1.28 cm2/m2 [facility] BSA Noble BMI 25.85 kg/m2 [facility] E wave 2.87 msec [facility] decelartion time MV Peak A Martín 0.97 m/s [facility] MV valve area p 5.15 cm2 [facility] 1/2 method MV Peak E Martín 0.55 m/s [facility] MV stenosis 42.70 ms [facility] pressure 1/2 time AV LVOT peak 2.74 mmHg [facility] gradient Ascending aorta 3.07 cm [facility] Ao Root 2.88 cm [facility] Diameter LV SYS VOL 36.89 ml [facility] LV STEPHENSON VOL 84.93 ml [facility] LV SI Teich 2D 25.19 ml/m2 [facility] LV SV Teich 2D 48.05 ml [facility] LV Vol s Teich 36.89 ml [facility] PSAX LVOT CI 1.94 l/min/m2 [facility] LVOT CO 3.70 l/min [facility] LVOT HR for 76.55 bpm [facility] LVOT CO LVOT SI 25.37 ml/m2 [facility] BSA Haycock 1.94 m2 [facility] AoV Vmn 0.75 [facility] IVS s 2D 1.41 [facility] LV FS Teich 2D 29.38 [facility] MV AE ratio 1.54 [facility] LV FS Cube 2D 29.38 [facility] LVOT Vmn 0.71 [facility] Pt Size 172.72 [facility] Pt Wt 77.11 [facility] Aov area Vmn 2.78 cm2 [facility] LA A_P score P -1.11 [facility] LVOT mean grad 2.13 mmHg [facility] MAX Pred HR 147.94 [facility] 85 of MPHR 125.75 [facility] AoV area I VMN 1.46 cm2/m2 [facility] bsa Calc MPHR 147.94 bpm [facility] IVS pct thck 5.89 % [facility] PLAX LV SI Cube 2D 27.78 ml/m2 [facility] LV SV Cube 2D 52.99 ml [facility] LV vol d cube 81.79 ml [facility] 2D LV vol s cube 28.80 ml [facility] 2D LVPW pct thck 33.78 % [facility] PLAX LVPW s PLAX 1.23 cm [facility] MV Decel slope 193.18 m/s2 [facility] Pred Exer Dur 6.60 [facility] R1 Pred METS R1 5.33 [facility] Velocity Ratio 0.79 m/s [facility] (V1/V2) EF 56.56 % [facility] E/A ratio 0.57 [facility] Specimen Narrative Performed At [facility] There is borderline left ventricular concentric hypertrophy. Left Ventricular ejection fraction i s 60 - 65%. Spectral Doppler shows impaired rela xation pattern of left ventricular diastolic filling. The mitral valve appears thickened a nd calcified. Performing Organization Address City/State/Zipcode Ph one Number [facility] [address] [place] [address], [place] * CBC hemogram (04/10/2019 9:10 AM CDT) WBC 7.5 4.2 - 11.0 k/uL [facility] RBC 2.94 (L) 4.04 - 5.86 m/uL [facility] HGB 8.7 (L) 11.5 - 15.3 g/dL [facility] HCT 27.5 (L) 34.0 - 45.0 % [facility] MCV 93.5 80.0 - 98.0 fL [facility] MCH 29.6 27.0 - 34.0 pg [facility] MCHC 31.6 31.5 - 36.5 g/dL [facility] RDW - SD 45.9 37.0 - 51.0 fL [facility] MPV 9.6 7.4 - 10.4 fL [facility] Platelet count 242 150 - 400 k/uL [facility] Nucleated RBC 0.00 /100 WBC [facility] Specimen Blood Performing Organization Address City/State/Zipcode Ph one Number [facility] DEPARTMENT OF [address] [facility] [place] [address] PATHOLOGY AND GENOMIC MEDICINE [facility] [address] [place] [address] HOSPITAL * Peripheral Block (04/06/2019 10:59 AM CDT) Narrative Performed At Alexander Farr MD 03/21 11:01 AM Peripheral Block Date/Time: 04/06/2019 10:50 AM Performed by: Alexander Farr MD Authorized by: Alexander Farr MD Patient Location: Pre-op Start Time: 04/06/2019 10:45 AM End Time: 04/06/2019 10:50 AM Reason for Block: primary anesthetic Staff: Anesthesiologist: Alexander Farr MD Performed by: Anesthesiologist Preprocedure: patient identified, IV ch ecked, site and side verified, risks and benefits discussed, procedure verified, surgical consent complete, patient position confirmed, m onitors and equipment checked, pre-op evaluation complete, site marked and coagulation status reviewed Time Out Performed: 04/06/2019 10:50 AM Peripheral Nerve Block: Patient Position: Supine Prep: ChloraPrep Monitoring: Blood pressure monitori ng, continuous pulse oximetry and heart rate Block Type: Supraclavicular Laterality: Left Injection Technique: Single injection Procedures: ultrasound guided Ultrasound documentation: Images save d on hard disk Local Infiltration (See MAR for details ): Lidocaine Needle: Needle Type: Pajunk Needle Gauge: 22 G Needle Length: 8 cm Assessment: Injection Assessment: Visualized ne edle/local anesthetic surrounding nerve, visualized pertinent vascular st ructures and nerves, needle tip visualized at all times during injectio n of medication, no symptoms of intraneural/intravenous injection and i ntermittent aspiration during local anesthetic administration Paresthesia Pain: None Heart Rate Change: No Slow Fractionated Injection: Yes Block outcome: No apparent complica tions, patient comfortable and patient tolerated procedure well Medications Administered Ropivacaine 0.5 % PF (mL), 20 mL * IR Tunneled Dialysis Catheter Placement (04/03/2019 8:13 PM CDT) Specimen Narrative Performed At Performing Radiologist: ARIELLA Rodriguez MD Assistants: None. Anesthesia Type: Moderate sedation was administered by [facility] procedure nurse and monitored intraservice [id number] by the proced ure physician for 6 minutes. Lidocaine 1% was used for local anesthetic. Pre Procedure Diagnosis: tunneled dialysis catheter placement Post Procedure Diagnosis: Status post tunneled right internal jug ular vein hemodialysis catheter placement. Procedure: Placement of a tunneled right internal jugular vein hemodialysis catheter. Technique: Written informed consent was obtained p rior to the procedure. All elements of maximal sterile barrier technique were followed. The patient's right neck and upper chest were sterilely prepared and draped in the routine manner. Lidocaine 1% was used for local anesthetic. Using real-time ultra sound guidance, a 21-gauge micropuncture needle was advanced successfully into [facility] right internal jugular vein. A 0.018 inch guidewire was advanced centrally t hrough the needle under fluoroscopy. The needle was removed and a micropuncture sheath syst em was then placed. Under ultrasound guidance, documentation of vessel paten cy, needle access with permanent recording, and reporting are performed followed by placement of a sheath in the right internal jugular vein. The inner dilator and guidewire w ere then removed, and a 0.035 inch wire was advanced through the micropuncture sheath and successfully into the inferior vena cava. The right infraclavicular fo ssa was anesthetized with lidocaine 1%. A skin incision was made, and a tunneling device was us ed to pass the tunneled hemodialysis catheter from the skin entry site to th e venotomy site. Attention was then returned to the venotomy site. The trac t was then sequentially dilated, and a 23 cm long tip to cuff GlidePath tunneled hemodialysis cathete r was then deployed through a peel-away sheath. The catheter tip was placed in the right atrium under fluoroscopic guidance. All ports were tested and dem onstrate adequate flow. The catheter was secured to the skin using 2-0 Ethilon suture. The small sunita otomy incision was closed with 3-0 Vicryl suture and Dermabond. The patient nicholas ated the procedure well. Fluoroscopy Ka,r = 2 mGy Complications: None. Specimens Removed: None. Estimated Blood Loss: Less than 2 mL. Blood/Blood Products Administered: None. Grafts/Implants: As described in the above report. Impression: Successful fluoroscopic-guided placemen t of a 23 cm long tip to cuff GlidePath tunneled hemodialysis catheter via the right internal jugular vein. The catheter tip lies in the right atrium and is rich dy for use. [id number] Procedure Note Hm Interface, Radiology Results Incoming - 04/04/2019 9:48 AM CDT Performing Radiologist: Shon Rodriguez MD Assistants: None. Anesthesia Type: Moderate sedation was administered by the procedure nurse and monitored intraservice [id number] by the procedure physician for 6 minutes. Lidocaine 1% was used for local anesthetic. Pre Procedure Diagnosis: tunneled dialysis catheter placement Post Procedure Diagnosis: Status post tunneled right internal jugular vein hemodialysis catheter placement. Procedure: Placement of a tunneled right internal jugular vein hemodialysis catheter. Technique: Written informed consent was obtained prior to the procedure. All elements of maximal sterile barrier technique were followed. The patient's right neck and upper chest were sterilely prepared and draped in the routine manner. Lidocaine 1% was used for local anesthetic. Using real-time ultrasound guidance, a 21-gauge micropuncture needle was advanced successfully into the right internal jugular vein. A 0.018 inch guidewire was advanced centrally through the needle under fluoroscopy. The needle was removed and a micropuncture sheath system was then placed. Under ultrasound guidance, documentation of vessel patency, needle access with permanent recording, and reporting are performed followed by placement of a sheath in the right internal jugular vein. The inner dilator and guidewire were then removed, and a 0.035 inch wire was advanced through the micropuncture sheath and successfully into the inferior vena cava. The right infraclavicular fossa was anesthetized with lidocaine 1%. A skin incision was made, and a tunneling device was used to pass the tunneled hemodialysis catheter from the skin entry site to the venotomy site. Attention was then returned to the venotomy site. The tract was then sequentially dilated, and a 23 cm long tip to cuff GlidePath tunneled hemodialysis catheter was then deployed through a peel-away sheath. The catheter tip was placed in the right atrium under fluoroscopic guidance. All ports were tested and demonstrate adequate flow. The catheter was secured to the skin using 2-0 Ethilon suture. The small venotomy incision was closed with 3-0 Vicryl suture and Dermabond. The patient tolerated the procedure well. Fluoroscopy Ka,r = 2 mGy Complications: None. Specimens Removed: None. Estimated Blood Loss: Less than 2 mL. Blood/Blood Products Administered: None. Grafts/Implants: As described in the above report. Impression: Successful fluoroscopic-guided placement of a 23 cm long tip to cuff GlidePath tunneled hemodialysis catheter via the right internal jugular vein. The catheter tip lies in the right atrium and is ready for use. [id number] Performing Organization Address City/State/Zipcode Ph one Number ARIELLA POON [address] [place] [address] * US Guided Vascular Access (04/03/2019 8:13 PM CDT) Specimen Narrative Performed At Performing Radiologist: ARIELLA Rodriguez MD Assistants: None. Anesthesia Type: Moderate sedation was administered by chris mcnulty procedure nurse and monitored intraservice [id number] by the proced ure physician for 6 minutes. Lidocaine 1% was used for local anesthetic. Pre Procedure Diagnosis: tunneled dialysis catheter placement Post Procedure Diagnosis: Status post tunneled right internal jug ular vein hemodialysis catheter placement. Procedure: Placement of a tunneled right internal jugular vein hemodialysis catheter. Technique: Written informed consent was obtained p rior to the procedure. All elements of maximal sterile barrier technique were followed. The patient's right neck and upper chest were sterilely prepared and draped in the routine manner. Lidocaine 1% was used for local anesthetic. Using real-time ultra sound guidance, a 21-gauge micropuncture needle was advanced successfully into t he right internal jugular vein. A 0.018 inch guidewire was advanced centrally t hrough the needle under fluoroscopy. The needle was removed and a micropuncture sheath syst em was then placed. Under ultrasound guidance, documentation of vessel paten cy, needle access with permanent recording, and reporting are performed followed by placement of a sheath in the right internal jugular vein. The inner dilator and guidewire w ere then removed, and a 0.035 inch wire was advanced through the micropuncture sheath and successfully into the inferior vena cava. The right infraclavicular fo ssa was anesthetized with lidocaine 1%. A skin incision was made, and a tunneling device was us ed to pass the tunneled hemodialysis catheter from the skin entry site to th e venotomy site. Attention was then returned to the venotomy site. The trac t was then sequentially dilated, and a 23 cm long tip to cuff GlidePath tunneled hemodialysis cathete r was then deployed through a peel-away sheath. The catheter tip was placed in the right atrium under fluoroscopic guidance. All ports were tested and dem onstrate adequate flow. The catheter was secured to the skin using 2-0 Ethilon suture. The small sunita otomy incision was closed with 3-0 Vicryl suture and Dermabond. The patient nicholas ated the procedure well. Fluoroscopy Ka,r = 2 mGy Complications: None. Specimens Removed: None. Estimated Blood Loss: Less than 2 mL. Blood/Blood Products Administered: None. Grafts/Implants: As described in the above report. Impression: Successful fluoroscopic-guided placemen t of a 23 cm long tip to cuff GlidePath tunneled hemodialysis catheter via the right internal jugular vein. The catheter tip lies in the right atrium and is rich dy for use. [id number] Procedure Note Hm Interface, Radiology Results Incoming - 04/04/2019 9:49 AM CDT Performing Radiologist: Shon Rodriguez MD Assistants: None. Anesthesia Type: Moderate sedation was administered by the procedure nurse and monitored intraservice [id number] by the procedure physician for 6 minutes. Lidocaine 1% was used for local anesthetic. Pre Procedure Diagnosis: tunneled dialysis catheter placement Post Procedure Diagnosis: Status post tunneled right internal jugular vein hemodialysis catheter placement. Procedure: Placement of a tunneled right internal jugular vein hemodialysis catheter. Technique: Written informed consent was obtained prior to the procedure. All elements of maximal sterile barrier technique were followed. The patient's right neck and upper chest were sterilely prepared and draped in the routine manner. Lidocaine 1% was used for local anesthetic. Using real-time ultrasound guidance, a 21-gauge micropuncture needle was advanced successfully into the right internal jugular vein. A 0.018 inch guidewire was advanced centrally through the needle under fluoroscopy. The needle was removed and a micropuncture sheath system was then placed. Under ultrasound guidance, documentation of vessel patency, needle access with permanent recording, and reporting are performed followed by placement of a sheath in the right internal jugular vein. The inner dilator and guidewire were then removed, and a 0.035 inch wire was advanced through the micropuncture sheath and successfully into the inferior vena cava. The right infraclavicular fossa was anesthetized with lidocaine 1%. A skin incision was made, and a tunneling device was used to pass the tunneled hemodialysis catheter from the skin entry site to the venotomy site. Attention was then returned to the venotomy site. The tract was then sequentially dilated, and a 23 cm long tip to cuff GlidePath tunneled hemodialysis catheter was then deployed through a peel-away sheath. The catheter tip was placed in the right atrium under fluoroscopic guidance. All ports were tested and demonstrate adequate flow. The catheter was secured to the skin using 2-0 Ethilon suture. The small venotomy incision was closed with 3-0 Vicryl suture and Dermabond. The patient tolerated the procedure well. Fluoroscopy Ka,r = 2 mGy Complications: None. Specimens Removed: None. Estimated Blood Loss: Less than 2 mL. Blood/Blood Products Administered: None. Grafts/Implants: As described in the above report. Impression: Successful fluoroscopic-guided placement of a 23 cm long tip to cuff GlidePath tunneled hemodialysis catheter via the right internal jugular vein. The catheter tip lies in the right atrium and is ready for use. [id number] Performing Organization Address City/State/Zipcode Ph one Number [facility] [address] [place] [address] * US Duplex Limited Left (04/03/2019 12:44 PM CDT) Only the most recent of 2 results within the time period is included. Specimen Narrative Performed At Exam: [facility] Limited left upper extremity duplex ult rasound. INDICATION: Left upper extremity arterial venous fi stula. COMPARISON: None. TECHNIQUE: Multiple grayscale, color Doppler, and spectral Doppler images of the left upper extremity arterial venous fistula were obtained. FINDINGS: Brachial images demonstrate left brachi al-transposed basilic arteriovenous fistula. The fistula measures greater t rivera 6 mm in diameter through the entirety of its course and up to 8 mm in diamete r within its midportion. Peripherally, it is 4 mm deep to the skin. Within its midportion it is s lightly deeper, measuring 8 mm deep to the skin. However, centrally, it is at the 1.6 cm deep to the skin. This is greater than recommended by KDOQI guide lines. Vessel: Peak systolic velocity (centime ters per second), volume flow (milliliters per minute) common wavefor m Brachial artery: 23.1, not measured, mo nophasic (an expected post arteriovenous fistula creation finding Arterial venous fistula: Anastomosis: 168, 1121, monophasic with systolic upstroke Peripheral: 110.1, 1067, monophasic wit h systolic upstroke Mid: 60.7, 551.9, monophasic with systo lic upstroke Central: 43.8, 574.2, monophasic with s ystolic upstroke IMPRESSION: Left brachial-transposed basilic arteri ovenous fistula. The fistula it measures greater than 6 mm in diameter across th e entirety of its length, a 6 mm deep to the skin peripherally and progressively deeper up to 1.6 cm deep to the skin centrally, which greater than recommended per KDOQI guid elines. Volume flow proximally is greater significantly greater than 600 mm/m, wh ich is ideal, but by its mid and central portion is slightly less than 600 mL/m, which is slightly less than recommended per KDOQI guidelines. Procedure Note Interface, Radiology Results Incoming - 04/03/2019 4:20 PM CDT Exam: Limited left upper extremity duplex ultrasound. INDICATION: Left upper extremity arterial venous fistula. COMPARISON: None. TECHNIQUE: Multiple grayscale, color Doppler, and spectral Doppler images of the left upper extremity arterial venous fistula were obtained. FINDINGS: Brachial images demonstrate left brachial-transposed basilic arteriovenous fistula. The fistula measures greater than 6 mm in diameter through the entirety of its course and up to 8 mm in diameter within its midportion. Peripherally, it is 4 mm deep to the skin. Within its midportion it is slightly deeper, measuring 8 mm deep to the skin. However, centrally, it is at the 1.6 cm deep to the skin. This is greater than recommended by KDOQI guidelines. Vessel: Peak systolic velocity (centimeters per second), volume flow (milliliters per minute) common waveform Brachial artery: 23.1, not measured, monophasic (an expected post arteriovenous fistula creation finding Arterial venous fistula: Anastomosis: 168, 1121, monophasic with systolic upstroke Peripheral: 110.1, 1067, monophasic with systolic upstroke Mid: 60.7, 551.9, monophasic with systolic upstroke Central: 43.8, 574.2, monophasic with systolic upstroke IMPRESSION: Left brachial-transposed basilic arteriovenous fistula. The fistula it measures greater than 6 mm in diameter across the entirety of its length, a 6 mm deep to the skin peripherally and progressively deeper up to 1.6 cm deep to the skin centrally, which greater than recommended per KDOQI guidelines. Volume flow proximally is greater significantly greater than 600 mm/m, which is ideal, but by its mid and central portion is slightly less than 600 mL/m, which is slightly less than recommended per KDOQI guidelines. Performing Organization Address City/State/[facility] Ph one Number [facility] [address] [place] [address] * Echocardiogram complete w contrast and 3D if needed (04/03/2019 9:10 AM CDT) Ao Root 3.74 cm [facility] Diameter AoV Area, Vmax 2.97 cm2 [facility] AoV Area, VTI 2.93 cm2 HM [facility] AoV Mean PG 4.34 mmHg HM [facility] AoV Peak PG 6.40 mmHg HM [facility] AoV Vmax 1.30 m/s HM [facility] AoV VTI 0.33 m [facility] BSA Miranda 1.99 m2 HM [facility] BSA 1.96 m2 HM [facility] IVS,d 1.63 cm HM [facility] IVS/LVPW,2D 1.23 HM [facility] Left Atrium 3.62 cm HM [facility] Dimension Anterior LV,d 4.27 cm HM [facility] LV EF,2D 77.48 % HM [facility] LV,s 2.60 cm HM [facility] LVOT area 3.40 cm2 HM [facility] LVOT Diam,S 2.08 cm HM [facility] LVOT Vmax 1.14 m/s HM [facility] LVOT VTI 0.27 m HM [facility] LVPWD,d 1.33 cm HM [facility] PV Pk Grad 3.88 mmHg HM [facility] PV VMAX 0.98 m/s HM [facility] TR Vpeak 1.01 mm/s HM [facility] MV E A ratio 0.84 HM [facility] TR pk grad 4.06 mmHg HM [facility] AoV area i VTI 1.50 cm2/m2 [facility] BSA Hilaria BMI 25.99 kg/m2 [facility] E wave 257.64 msec HM [facility] decelartion time IVRT 74.22 msec [facility] MV Peak A Martín 1.17 m/s HM [facility] MV valve area p 2.94 cm2 HM [facility] 1/2 method MV Peak E Martín 0.97 m/s HM [facility] MV stenosis 74.72 ms [facility] pressure 1/2 time AV LVOT peak 4.93 mmHg HM [facility] gradient Ascending aorta 3.55 cm HM [facility] Ao Root 3.74 cm HM [facility] Diameter MV mean 2.94 mmHg HM [facility] gradient LV SYS VOL 24.52 ml HM [facility] LV STEPHENSON VOL 81.59 ml HM [facility] LV SI Teich 2D 29.17 ml/m2 HM [facility] LV SV Teich 2D 57.07 ml HM [facility] LV Vol s Teich 24.52 ml HM [facility] PSAX LVOT SI 46.12 ml/m2 [facility] MR peak grad 7.50 mmHg HM [facility] MV Vmax 1.37 m HM [facility] MV VTI Tips 0.33 m [facility] BSA Haycock 1.98 m2 HM [facility] AoV Vmn 0.99 HM [facility] IVS s 2D 1.76 HM [facility] LV FS Teich 2D 39.16 HM [facility] MV AE ratio 1.20 HM [facility] LV FS Cube 2D 39.16 HM [facility] LVOT Vmn 0.83 HM [facility] Pt Size 175.26 [facility] Pt Wt 79.83 [facility] Aov area Vmn 2.99 cm2 HM [facility] LA A_P score P 1.13 HM [facility] LVOT mean grad 3.12 mmHg HM [facility] MAX Pred HR 147.97 HM [facility] 85 of MPHR 125.78 HM [facility] AoV area I VMN 1.53 cm2/m2 [facility] bsa Calc MPHR 147.97 bpm HM [facility] IVS pct thck 8.14 % [facility] PLAX LV SI Cube 2D 30.78 ml/m2 [facility] LV SV Cube 2D 60.21 ml HM [facility] LV vol d cube 77.71 ml HM [facility] 2D LV vol s cube 17.50 ml HM [facility] 2D LVPW pct thck 37.79 % HM [facility] PLAX LVPW s PLAX 1.84 cm HM [facility] MV Decel slope 3.75 m/s2 HM [facility] Pred Exer Dur 6.60 HM [facility] R1 Pred METS R1 5.34 HM [facility] LA Vol MOD A4C 61.63 ml HM [facility] Velocity Ratio 0.88 m/s HM [facility] (V1/V2) EF 69.95 % [facility] E/A ratio 0.83 HM [facility] Specimen Narrative Performed At [facility] Left ventricular systolic function i s normal. Left Ventricular ejection fraction i s 60 - 65%. There is moderate left ventricular c oncentric hypertrophy. Spectral Doppler shows impaired rela xation pattern of left ventricular diastolic filling. Global right ventricle systolic func tion is mildly reduced. Left atrium size is mildly dilated. There is severe sclerosis of the aor tic valve leaflets. The mitral valve appears thickened a nd calcified. Performing Organization Address City/[facility] Ph one Number [facility] [address] [place] [address], * Phosphorus level (04/03/2019 6:33 AM CDT) Only the most recent of 2 results within the time period is included. Phosphorus 6.9 (H) 2.4 - 4.5 mg/dL [facility] Specimen Plasma specimen Performing Organization Address City/State/[facility] Ph one Number [facility] DE[facility] OF [address] [facility] [place] [address] PATHOLOGY AND GENOMIC MEDICINE [facility] [address] [facility] [address] * Thyroid stimulating hormone (04/02/2019 2:19 PM CDT) TSH 1.46 0.27 - 4.20 uIU/mL [facility] Specimen Plasma specimen Performing Organization Address City/[facility] Ph one Number [facility] DEPARTMENT OF [address] [facility] [place] [address] PATHOLOGY AND GENOMIC MEDICINE [facility] [address] * Ammonia level (04/01/2019 10:36 PM CDT) Ammonia 13 11 - 51 umol/L [facility] Specimen Plasma specimen Performing Organization Address [facility] Ph one Number [facility] DEPARTMENT OF [address] [facility] [address] [place] [address] PATHOLOGY AND GENOMIC MEDICINE [facility] [address] * XR Lumbar Spine 2 Or 3 Vw (02/21/2019 3:54 PM CDT) Specimen Narrative Performed At EXAMINATION: XR LUMBAR SPINE 2 OR 3 VW [facility] CLINICAL HISTORY: low back pain COMPARISON: None. FINDINGS: 3 view examination of the lumbar spine performed. 5 lumbar vertebrae are present. Lordosi s well-maintained. No compressive abnormality. Mild disc space narrowing L4-5 and L5-S1. Mild bilateral facet hypertrophy L4-5 a nd L5-S1. No compressive abnormality. No spondylolisthesis. Numerous surgical clips in the pelvis. Cholecystectomy clips right upper quadrant. There is a vascular stent in the lower lumbar region.. Diffuse aortic atherosclerosis IMPRESSION: Mild degenerative changes L4-5 and L5-S 1 No compressive abnormality lumbar spine Postsurgical changes throughout the abd omen. Atherosclerosis Vascular stents at the level of the lef t common iliac vessels [id number] Procedure Note Hm Interface, Radiology Results Incoming - 02/21/2019 4:03 PM CDT EXAMINATION: XR LUMBAR SPINE 2 OR 3 VW CLINICAL HISTORY: low back pain COMPARISON: None. FINDINGS: 3 view examination of the lumbar spine p erformed. 5 lumbar vertebrae are present. Lordosis well-maintained. No compressive abnormality. Mild disc space narrowing L4-5 and L5-S1. Mild bilateral facet hypertrophy L4-5 and L5-S1. No compressive abnormality. No spondylolisthesis. Numerous surgical clips in the pelvis. Cholecystectomy clips right upper quadrant. There is a vascular stent in the lower lumbar region.. Diffuse aortic atherosclerosis IMPRESSION: Mild degenerative changes L4-5 and L5-S1 No compressive abnormality lumbar spine Postsurgical changes throughout the abdomen. Atherosclerosis Vascular stents at the level of the left common iliac vessels [id number] Performing Organization Address City/State/Zipcode Ph one Number [facility] [address] [place] [address] * CT Angiogram Pe Chest (02/09/2019 12:52 PM CDT) Specimen Narrative Performed At EXAMINATION: [facility] sob TECHNIQUE: CT angiographic images of the chest are obtained during intravenous administration of iodinated contrast. C omputerized reformatted images and 3-D images were also obtained and archived. CT pulmonary embolus protocol. CT scans are performed using radiation dose reduction techniques. Technical factors are evaluated and adjusted to e nsure appropriate moderation of exposure. Automated dose management technology is applied to adjust radiation exposure while achieving a diagnostic quality image. COMPARISON: None. FINDINGS: Visualized portions of the thyroid glan d are unremarkable. The thoracic aorta demonstrates atherosclerotic vascular c hange. There is no aneurysmal dilatation or dissection. Pulmonary arteries are well opacified. There is no evidence of any pulmonary embolism. The heart has no pericardial effusion. There is no pleural effusion or pneumothorax. The visualized portions of the liver, s pleen and adrenal glands are unremarkable. The visualized kidneys ar e unremarkable. The left lung zone does not have any fo moise area of consolidation, pleural effusion or pneumothorax. The right lung zone is clear. There is no evidence of a pneumothorax. There are changes of prior median sternotomy. IMPRESSION: 1. There is no evidence of any pulmonar y embolism. 2. The thoracic aorta has no aneurysmal dilatation atherosclerotic vascular changes are present. 3. The visualized great vessels are unr emarkable. 4. The lung zones do not have any focal consolidation [id number] Procedure Note Interface, Radiology Results Incoming - 02/09/2019 1:26 PM CDT EXAMINATION: CT ANGIOGRAM PE CHEST CLINICAL HISTORY: sob TECHNIQUE: CT angiographic images of the chest are obtained during intravenous administration of iodinated contrast. Computerized reformatted images and 3-D images were also obtained and archived. CT pulmonary embolus protocol. CT scans are performed using radiation dose reduction techniques. Technical factors are evaluated and adjusted to ensure appropriate moderation of exposure. Automated dose management technology is applied to adjust radiation exposure while achieving a diagnostic quality image. COMPARISON: None. FINDINGS: Visualized portions of the thyroid gland are unremarkable. The thoracic aorta demonstrates atherosclerotic vascular change. There is no aneurysmal dilatation or dissection. Pulmonary arteries are well opacified. There is no evidence of any pulmonary embolism. The heart has no pericardial effusion. There is no pleural effusion or pneumothorax. The visualized portions of the liver, spleen and adrenal glands are unremarkable. The visualized kidneys are unremarkable. The left lung zone does not have any focal area of consolidation, pleural effusion or pneumothorax. The right lung zone is clear. There is no evidence of a pneumothorax. There are changes of prior median sternotomy. IMPRESSION: 1. There is no evidence of any pulmonary embolism. 2. The thoracic aorta has no aneurysmal dilatation atherosclerotic vascular changes are present. 3. The visualized great vessels are unre markable. 4. The lung zones do not have any focal consolidation [id number] Performing Organization Address City/State/[facility] Ph one Number [facility] [address] [place] [address] * cath lab radiological technologist procedure (02/03/2019 3:28 PM CDT) Specimen Narrative Performed At [facility] CARDIOLOGY PROCEDURE NOTE DATE OF PROCEDURE: 02/03/2019 REFERRING PHYSICIAN: Dr. Michelle welch PROCEDURES PERFORMED: 1. Ultrasound guided R femoral artery a ccess 2. Selective angiography of saphenous v ein graft to ramus intermedius 3. Successful PCI of the the proximal S VG to RI with drug eluting stent and placement of distal embolic protect ion device 4. Intravascular ultrasound (IVUS) of t he saphenous vein graft 5. Successful closure of _ arterial acc ess site with a _ Closure device. 6. Conscious Sedation CPT Codes: 29506 + 66322 X 5 (87 minutes; Sedation Start time: 1401; Sedation End time 152 8) INDICATION FOR PROCEDURE: Abnormal stre ss test, NSTEMI OPERATORS: Thaddeus Elizabeth MD ACCESS: 6 Fr RFA Pre-Procedure Diagnosis: 1. CAD s/p CABG 2. NSTEMI 3. Abnormal stress test Post-Procedure Diagnosis: S/p successfu l PCI of the SVG to RI with placement of one KISHAN CONCLUSIONS 1. Coronary artery disease as described below includin. Successful PCI to the ostial SVG to RI 70-80% stenosis (LOUIE 3 flow prior to the intervention) with a 3.25 x 18 mm Saida KISHAN resulting in <10% stenosis and LOUIE 3 flow RECOMMENDATIONS 1. Aspirin 81 mg daily life-long 2. Clopidogrel 75 mg daily for at least 12 months 3. Aggressive risk factor modification DESCRIPTION OF THE PROCEDURE The risks, benefits and objectives of t he procedure were discussed with Mrs Dooley in details. Patient provided both verbal and writte n informed consent to proceed. Moderate sedation was provided with a t otal of intravenous midazolam 3 mg and fentanyl 100 mcg. Heart rate, rhyth m, and pulse oximetry were continuously recorded and monitored in real time throughout the procedure by a trained dedicated interventional c ardiology catheterization laboratory RN under direct supervision of Dr Elizabeth. Blood pressure was monitored in 5 minute increments. Total sedation time was 87 minutes. There was no complications from the sed ation. Lidocaine 1% was used for local anesthe lori. Utilizing ultrasound guidance and modified Seldinger technique, a jonas g 6 Lithuanian sheath was placed into the right femoral artery utilizing a mi cropuncture kit. Limited Right common femoral angiograph y was performed in the MCKEON projection. Selective angiography was performed in multiple projections with 6-Lithuanian LCB catheter to selectively engage the SVG to RI. FINDINGS: SELECTIVE CORONARY ANGIOGRAPHY: SVG to RI with 70-80% proximal stenosis . INTERVENTION: A decision was made to proceed with PCI of the SVG to RI. The SVG to RI was then engaged with a 6 Fr LCB Guide catheter. IV Heparin was used for anticoagulation. Patient was loaded wit h Clopidogrel 600 mg PO x 1. First, the saphenous vein graft was wir ed successfully with a 0.014 choice floppy wire. Over the choice floppy w adarsh, and JOSI catheter was advanced. The IVUS catheter was flushed appropria tely prior to being introduced into the guide catheter. The IVUS dev ice pullback was then performed and images were reviewed. The images demo nstrated significant disease of the proximal saphenous vein graft with a mt nimal luminal area less than 4 mm. We are able to appropriately size the s aphenous vein graft as well with the IVUS. Next, a 4 mm spiderFx filte r was then advanced over the choice floppy wire and deployed in the sapheno us vein graft. After that, a 3.25 x 18 mm Saida drug-eluting stent was a dvanced to the ostial saphenous vein graft and deployed at nominal pres sure. Next, a 3.75 x 8 mm balloon was used to post dilate the stent. Af ter that, 4.5 x 8 mm noncompliant balloon was used to post dilate the pro ximal stent. Final angiographic images were obtained . There was LOUIE 3 flow distally, with no evidence of dissection, perfora tion, or distal embolization. All catheters and guidewires were removed. After the procedure was completed hemos tasis was successfully achieved utilizing a Perclose proglide device. ASSESSMENT AND PLAN: 73-year-old female with past medical hi story of end-stage renal disease who presented with shortness of breath and chest discomfort with mildly elevated cardiac enzymes. Stress test demonstrated reversible defect in the anterior wall. The patient is sta tus post successful PCI to the ostial saphenous vein graft to the nilton s intermedius with placement of a 3.25 x 18 mm drug-eluting stent was pos tdilated to 4.5 mm. A SpiderFx filter was placed for distal embolic pr otection. The patient was loaded with Plavix will be maintained on dual antiplatelet therapy for at least 12 months. We will transfer the patie nt back to the floor for continued monitoring and dialysis. Performing Organization Address [facility] Ph one Number [facility] [address] [place] [address], * Activated clotting time (02/03/2019 2:56 PM CDT) Only the most recent of 2 results within the time period is included. Activated 252.0 (H) 74.0 - 125.0 sec [place] clotting time Comment: ORIENTAL ORTHODOX Meter ID: [id number] [place] Salesperson Wigs: [facility] Specimen Performing Organization Address City/[facility] Ph one Number [facility] DEPARTMENT OF [address] [place] [address] PATHOLOGY AND GENOMIC MEDICINE RAH ZEPEDA [address] [place] [address] HOSPITAL * cath lab radiological technologist procedure (02/01/2019 3:43 PM CDT) Specimen Narrative Performed At [facility] PROCEDURE NOTE DATE OF PROCEDURE: 02/01/19 REFERRING PHYSICIAN: Dr. Stinson PROCEDURES PERFORMED: 1. Ultrasound guided R femoral access 2. Selective Right and Left coronary an giography 3. Selective angiography of bypass annamarie ts 4. Left Heart catheterization 5. Conscious Sedation CPT Codes: 61890 + 27522 X 2 (41 minutes; Sedation Start time: 1502; Sedation End time 154 3) INDICATION FOR PROCEDURE: NSTEMI, abnor mal stress test OPERATORS: Interventional cardiology: Dr. Thaddeus Metzger idi ACCESS: 6 Fr RFA Pre-Procedure Diagnosis: 1. NSTEMI 2. Abnormal stress test 3. CAD s/p CABG 4. ESRD on HD Post-Procedure Diagnosis: Coronary linnea ry disease as described below DESCRIPTION OF THE PROCEDURE The risks, benefits and objectives of t he procedure were discussed with Mrs Dooley in details. Patient provided both verbal and writte n informed consent to proceed. Moderate sedation was provided with a t otal of intravenous midazolam 2 mg and fentanyl 50 mcg. Heart rate, rhythm , and pulse oximetry were continuously recorded and monitored in real time throughout the procedure by a trained dedicated interventional c ardiology catheterization laboratory RN under direct supervision of Dr Elizabeth. Blood pressure was monitored in 5 minute increments. Total sedation time was 41 minutes. There was no complications from the sed ation. Lidocaine 1% was used for local anesthe lori. Utilizing ultrasound guidance and modified Seldinger technique, 6 Dimitris nch sheath was placed into the right femoral artery utilizing a microp uncture kit. Limited Right common femoral angiograph y was performed in the MCKEON projection. Selective left and right coronary angio graphy was performed in multiple projections with 6-Lithuanian JL4 catheter to selectively engage the LMCA and JR 4 catheter to selectively engage the RCA. The JR4 catheter was then used to engag ed 2 SVG and used to cannulate the DIAZ to LAD graft. A 6 Fr LCB catheter was used to engage the 3rd SVG graft. Next, a 6 Fr pigtail catheter was used to cross the AV and enter the LV at which time a left ventriculogram was pe rformed. After the procedure was completed hemos tasis was successfully achieved utilizing 6 Lithuanian MynxGrip closure d evice. FINDINGS: HEMODYNAMICS: LVEDP = 15-20 mm Hg SELECTIVE CORONARY ANGIOGRAPHY: Left main coronary artery is a large-ca liber vessel that originates from the left sinus of Valsalva. It appears to trifurcate into left anterior descending (LAD), ramus and left circum flex artery. There is no significant disease in the left main co ronary artery. LAD is a large caliber vessel that give s a medium sized diagonal branch and septal before it is occluded. There is 80% proximal LAD disease. Left circumflex artery is a medium-katherin chapito vessel that is occluded in the proximal segment. Right coronary artery (RCA) originates from the right sinus of Valsalva. RCA is a large caliber vessel that is o ccluded within stent in the mid section. The SVG to RCA supplies a large distal branch and territory. There is a 50% mid stenosis. The SVG to OM is patent with mild degen erative disease and valves that slow flow. There is a stent in the prox imal portion with mild ISR. The SVG to ramus (?) has a 70-80% ostia l stenosis. There is diffuse disease of the ramus. The DIAZ to LAD is patent. There is mod diffuse disease of the distal LAD. ASSESSMENT AND PLAN: Recommend PCI to the ostial SVG to nilton s. Plan for procedure on Wednesday. Performing Organization Address City/State/Zipcode Ph one Number [facility] [address] [place] [address], * Cv stress test (01/29/2019 3:07 PM CDT) Resting HR 59 [facility] Resting BP 187 [facility] Peak MET 1.0 [facility] Achieved Protocol Name LAURA H MUSE Time in 00:01:07 [facility] Exercise Phase Max Systolic BP 223 [facility] Max Diastolic 94 [facility] BP Max Heart Rate 83 [facility] Max Predicted 149 [facility] Heart Rate Target HR (220 - Age)*100% [facility] MUSE Formula Test Indication H MUSE Arrhy During Ex none [facility] MUSE ECG Interp T wave inversion [facility] Before EX ECG Interp none [facility] During Ex Ex Summary STRESS IMAGES TO FOLLOW [facility] M[facility] Comment Chest Pain non-limiting H MUSE Statement Overall HR appropriate [facility]USE Response to Exercise Overall BP normal resting BP - [facility]USE Response To appropriate response Exercise Reason for Protocol completed [facility] Termination Stress Test STRESS IMAGES TO [facility] M[facility] Impression FOLLOW--Electronically Sign ed By Thaddeus Elizabeth MD ([id number]) on 02/18/2019 3:46:18 PM Specimen Narrative Performed At This result has an attachment that is n ot available. Performing Organization Address City/State/Zipcode Ph one Number [facility] [address] [place] [address] * Echocardiogram complete w contrast and 3D if needed (01/29/2019 12:22 PM CDT) Ao Root 3.37 cm [facility] Diameter AoV Area, Vmax 2.60 cm2 [facility] AoV Area, VTI 2.87 cm2 [facility] AoV Mean PG 3.95 mmHg [facility] AoV Peak PG 7.39 mmHg [facility] AoV Vmax 1.36 m/s [facility] AoV VTI 0.29 m [facility] BSA Miranda 2.05 m2 [facility] BSA 1.99 m2 [facility] IVS,d 1.63 cm [facility] IVS/LVPW,2D 1.43 [facility] Left Atrium 3.68 cm [facility] Dimension Anterior LV,d 4.43 cm [facility] LV EF,2D 80.92 % [facility] LV,s 2.55 cm [facility] LVOT area 3.94 cm2 [facility] LVOT Diam,S 2.24 cm [facility] LVOT Vmax 0.90 m/s [facility] LVOT VTI 0.21 m [facility] LVPWD,d 1.14 cm [facility] PV Pk Grad 2.67 mmHg [facility] PV VMAX 0.82 m/s [facility] RVSP (TR) 26.24 mmHg [facility] TR Vpeak 2.01 mm/s [facility] MV E A ratio 0.85 [facility] TR pk grad 16.24 mmHg [facility] AoV area i VTI 1.44 cm2/m2 [facility] BSA Hilaria BMI 28.43 kg/m2 [facility] E wave 211.66 msec [facility] decelartion time MV Peak A Martín 0.93 m/s [facility] MV valve area p 3.58 cm2 [facility] 1/2 method MV Peak E Martín 0.79 m/s [facility] MV stenosis 61.38 ms [facility] pressure 1/2 time AV LVOT peak 3.21 mmHg [facility] gradient Ascending aorta 3.58 cm [facility] RVSP 26.24 mmHg [facility] Ao Root 3.37 cm [facility] Diameter LV SYS VOL 23.51 ml [facility] LV STEPHENSON VOL 89.29 ml [facility] LA area s A4C 15.83 cm2 [facility] LV SI Teich 2D 33.12 ml/m2 [facility] LV SV Teich 2D 65.78 ml [facility] LV Vol s Teich 23.51 ml [facility] PSAX LVOT SI 41.50 ml/m2 [facility] BSA Haycock 2.04 m2 [facility] AoV Vmn 0.94 [facility] IVS s 2D 2.14 [facility] LV FS Teich 2D 42.43 [facility] MV AE ratio 1.18 [facility] LV FS Cube 2D 42.43 [facility] LVOT Vmn 0.59 [facility] Pt Size 172.72 [facility] Pt Wt 84.82 [facility] Aov area Vmn 2.47 cm2 [facility] LA A_P score P 1.07 [facility] LVOT mean grad 1.61 mmHg [facility] MAX Pred HR 148.15 [facility] 85 of MPHR 125.93 [facility] AoV area I VMN 1.25 cm2/m2 [facility] bsa Calc MPHR 148.15 bpm [facility] IVS pct thck 31.08 % [facility] PLAX LV SI Cube 2D 35.51 ml/m2 [facility] LV SV Cube 2D 70.54 ml [facility] LV vol d cube 87.17 ml [facility] 2D LV vol s cube 16.63 ml [facility] 2D LVPW pct thck 64.01 % [facility] PLAX LVPW s PLAX 1.87 cm [facility] MV Decel slope 3.72 m/s2 [facility] Pred Exer Dur 6.62 [facility] R1 Pred METS R1 5.36 [facility] LA Vol MOD A4C 40.08 ml [facility] Velocity Ratio 0.66 m/s [facility] (V1/V2) EF 73.67 % [facility] E/A ratio 0.85 [facility] Specimen Narrative Performed At [facility] Left ventricular systolic function i s normal. Left Ventricular ejection fraction i s 60 - 65%. There is mild left ventricular darrel ntric hypertrophy. Spectral Doppler shows impaired rela xation pattern of left ventricular diastolic filling. Global right ventricle systolic func tion is mildly reduced. The mitral valve appears calcified. Performing Organization Address City/[facility] Ph one Number [facility] [address] [place] [address], * Hepatitis B core antibody IgM (01/28/2019 6:09 PM CDT) Hepatitis B Non-reactive Non-reactive [place] core IgM [facility] Specimen Blood Performing Organization Address City/[facility] Ph one Number [facility] [place] [address] [place] [address] PATHOLOGY AND GENOMIC MEDICINE [address] * Hepatitis B core antibody total (01/28/2019 6:09 PM CDT) Hepatitis B Non-reactive Non-reactive [place] core total Ab [facility] Specimen Blood Performing Organization Address [facility] one Number [facility] DEPARTMENT OF [address] [place] [address] PATHOLOGY AND GENOMIC MEDICINE [address] * Hepatitis B surface antibody (01/28/2019 6:09 PM CDT) Hepatitis B Reactive (A) Non-reactive [place] surface Ab [facility] Specimen Blood Performing Organization Address [facility] one Number [facility] [place] [address] [place] [address] [place] [address] PATHOLOGY [place] [address] HOSPITAL after 11/22/2018 Insurance Type Payer Benefit Subscriber ID Effective Phone Address Plan / Dates Group HMO AETNA MEDICARE AETNA xxxxxxxx [id number] MEDICARE resent HMO/PPO [facility] Advance Directives For more information, please contact: [phone] 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 Explanation Type Date Recorded Advance Directives, 06/08/2019 9:59 PM Living Will and Medical Power of Hogshead Builder Advance Directives, 04/14/2019 5:54 PM Living Will and Medical Power of Hogshead Builder Advance Directives, 04/23/2019 6:44 PM Living Will and Medical Power of Hogshead Builder Advance Directives, 06/01/2019 8:20 PM Living Will and Medical Power of Hogshead Builder Advance Directives, 06/27/2019 9:52 PM Living Will and Medical Power of Hogshead Builder Advance Directives, 07/08/2019 5:43 PM Living Will and Medical Power of Hogshead Builder Advance Directives, 07/17/2019 6:11 PM Living Will and Medical Power of Hogshead Builder Advance Directives, 08/10/2019 5:59 AM Living Will and Medical Power of Hogshead Builder Advance Directives, 08/19/2019 8:48 PM Living Will and Medical Power of Hogshead Builder Advance Directives, 08/25/2019 10:59 PM Living Will and Medical Power of Hogshead Builder Advance Directives, 09/02/2019 9:20 PM Living Will and Medical Power of Hogshead Builder Advance Directives, 09/07/2019 8:36 PM Living Will and Medical Power of Hogshead Builder Advance Directives, 09/12/2019 4:03 PM Living Will and Medical Power of Hogshead Builder Advance Directives, 09/23/2019 10:22 PM Living Will and Medical Power of Hogshead Builder Advance Directives, 10/03/2019 8:28 PM Living Will and Medical Power of Hogshead Builder Advance Directives, 10/08/2019 12:58 PM Living Will and Medical Power of Hogshead Builder Advance Directives, 10/10/2019 2:09 PM Living Will and Medical Power of Hogshead Builder Advance Directives, 10/14/2019 2:27 PM Living Will and Medical Power of Hogshead Builder Advance Directives, 10/18/2019 12:25 AM Living Will and Medical Power of Hogshead Builder Advance Directives, 10/30/2019 9:54 PM Living Will and Medical Power of Hogshead Builder Advance Directives, 11/02/2019 4:03 AM Living Will and Medical Power of Hogshead Builder Advance Directives, 11/09/2019 8:33 PM Living Will and Medical Power of Hogshead Builder Advance Directives, 11/16/2019 8:19 PM Living Will and Medical Power of Hogshead Builder Date Inactivated Comments Code Status Date Activated 09/13/2019 3:22 AM Full Code 09/12/2019 4:39 PM Code Status decision reached by: Patient 09/04/2019 2:32 PM Full Code 09/02/2019 11:36 PM Code Status decision reached by: Patient 07/10/2019 12:57 AM Full Code 07/08/2019 9:46 PM Code Status decision reached by: Patient 06/29/2019 4:09 PM Full Code 06/27/2019 11:32 PM Code Status decision reached by: Patient 04/21/2019 9:17 PM Full Code 04/14/2019 7:15 PM Code Status decision reached by: Patient
--- OUTSIDE RECORDS SUMMARY | 2019-11-23 20:49 | XMS REPORT | Continuity of Care Document ---
Author Author [facility] t Organization [facility] Address [address] [place] [address] Phone Unavailable Care Team Providers Care Washroom Attendant Name Role Phone MATILDE SANTAMARIA, TONG PCP Robles SANTAMARIA, Merrill Johns Attphys Bernadette SANTAMARIA, Jose A Henley Attphys Diamond SANTAMARIA, [facility] Jeremiah Attphys Eric SANTAMARIA, Flor Johns Attphys Debbie SANTAMARIA, Christen Ken Attphys Manjula SANTAMARIA, Priscilla Leon Attphys [facility] brett Schwartz MD, Malcolm Cole Attphys [phone] Henry SANTAMARIA, Shivam Meade Attphys [phone] Atilio SANTAMARIA, Ramos Powers Attphys Harman SANTAMARIA, Jo Wright Attphys Wade SANTAMARIA, Unruly Kapoor Attphys Marcos DO, Ulices eNlson Attphys Shantell SANTAMARIA, Yayo Ryandestini Attphys Costa SANTAMARIA, H Edwin Attphys Finney DO, Jerel Randall Attphys [phone] Nisa SANTAMARIA, Mark Levine Attphys Marisol SANTAMARIA, Marcus Hunt Attphys Nicolas SANTAMARIA, Jose Juan Akhtar Attphys Judith SANTAMARIA, Rodolfo Telles Mai Attphys Jennifer Rhodes Attphys [phone] Jadyn SANTAMARIA, Lincoln Attphys Kelvin Givens MD, Merrill Mosher Attphys Missael SANTAMARIA, Enzo Attphys Mac SANTAMARIA, Rajinder Attphys Poonam ALVARADO, Lona Attphys Unavailable Cali RN, Jennyfer Attphys Unavailable Mira Granados DO Attphys [phone] Jessica SANTAMARIA, Dangelo Attphys Chika SANTAMARIA, Jessica Munoz Attphys Gilberto Cheema CRNA Attphys [phone] Chidi SANTAMARIA, Tiffanie Martinez Attphys Manohar SANTAMARIA, Ernesto Araiza Attphys [phone] Milad SANTAMARIA, Ulices Townsend Attphys [phone] Slade SANTAMARIA, Avani Croft Attphys Santhosh SANTAMARIA, Jo MossGhislaine Attphys Clara SANTAMARIA, Teodora Thaddeus Attphys TONG BRADSHAW Attphys Unavailable SWEET, A LAIRD Attphys Unavailable SANDRALUCERO, SABRINA Attphys Unavailable SAMLUIS, MERRILL WHITESIDE Attphys Unavailable DUBOSE, SHA Admphys Unavailable BERBERIAN, MARILYN Admphys Unavailable FINNEY, PORFIRIO Admphys Unavailable NICOLAS, HERMILO Admphys Unavailable ABOUELSAAD, EKTA Admphys Unavailable ABOUELSEOUD, TANSEEM Admphys Unavailable BAVARE, ARUSHA Admphys Unavailable JOGLEKAR, ENZO Admphys Unavailable MATILDE, TONG Admphys Unavailable JOUDAH, AHMAD PEGGY Admphys Unavailable Payers Payer Name Policy Type Policy Number Effective Date Expiration Date S trinh AETNA MEDICAREAETNA MEDICARE HMO/PPO [id number] HMO xxxxxxxx 2014 00:00:00 Brennan Sheppard [employer] Medicare Replacement [id number] 2014 00:00:00 [facility] Problems Condition Name Condition Details Condition Category Status Onset Date Resolution Date Last Treatment Date Treating Clinician Comments Source Anxiety reaction Anxiety reaction Disease Active 2019-11-17 00:00:00 Brennan Sheppard Nausea and vomiting Nausea and vomiting Disease Active 2019-11-10 00:00 :00 Brennan Sheppard Gastroparesis due to DM Gastroparesis due to DM Disease Active 2019-10-12 00:00:[address] Constipation by delayed colonic transit Constipation by erica ramsey colonic transit Disease Active 2019-10-11 00:00:00 Brennan Sheppard Advanced directives, counseling/discussi on -teaching re: MPOA, DPA & OOH DNR. Advanced directives, counseling/discussi on -teaching re: MPOA, DPA & OOH DNR. Disease Active 2019-10-11 00:00:00 Overview: Provided educational literature and all applicable forms. Brennan Sheppard S/P CABG x 4 S/P CABG x 4 Disease Active 2019-10-11 00:00:00 Overview: Last Assessment & Plan: Status post CABG approximately 8 years ago with DIAZ to the LAD, saphenous graft to the PDA, saphenous graft to the marginal, saphenous graft to the diagonal. Left heart catheterization performed by Dr. Sage approximately 3 years ago revealed patent grafts. No intervention was performed. Her symptoms of exertional dyspnea are similar to those noted immediately prior to her bypass procedure. Requested that she undergo PET stress study for further recommendations in this regard, in addition a d-dimer and B natruretic peptide have also been requested. 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 Not certain of the etiology responsible for this event. Holter monitor requested. Brennan Sheppard Uremia Uremia Disease Active 2019-10-11 00:00:00 Brennan Sheppard Venous insufficiency Venous insufficiency Disease Active 00:00:00 Brennan Sheppard Acute on chronic diastolic congestive heart failure [facility] on chronic diastolic congestive heart failure Disease Active 2019-10-11 00:00:00 Brennan Sheppard Paroxysmal nocturnal dyspnea Paroxysmal nocturnal dyspnea Disease Active 2019-10-11 00:00:00 Brennan Sheppard Lives alone without help available Lives alone without help avai lable Disease Active 2019-10-11 00:00:00 Jake Gomezist Driving safety issue - has memory impairment, drives h erself to dialysis Driving safety issue - has memory impairment, drives herself to dialysis Disease Active 2019-10-11 00:00:00 Brennan Sheppard Hypertriglyceridemia Hypertriglyceridemia Disease Active 00:00:00 Brennan Sheppard Near syncope Near syncope Disease Active 2019-10-11 00:00:00 Brennan Sheppard Exertional dyspnea Exertional dyspnea Disease Active 2019-10-11 00:00:0 0 Brennan Sheppard Frequent hospital admissions Frequent hospital admissions Disease Active 2019-10-11 00:00:00 Brennan Sheppard Malignant hypertension Malignant hypertension Disease Active 2019-10-10 00:00:00 Brennan catalan ESRD (end stage renal disease) on dialysis ESRD (end s tage renal disease) on dialysis Disease Active 2019-07-17 00:00:00 Overview: T/Tr/Sat Hemodialysis Brennan Sheppard Chest pain, rule out acute myocardial infarction Chest pain, rule out acute myocardial infarction Disease Active 2019-06-08 00:00:00 Brennan Sheppard Weakness Weakness Disease Active 2019-04-14 00:00:00 Brennan Sheppard SOB (shortness of breath) SOB (shortness of breath) Disease Ac tive 2019-02-09 00:00:00 Brennan catalan Fluid overload Fluid overload Disease Active 2019-01-27 00:00:00 Brennan Sheppard Dementia Dementia Disease Active 2018-07-27 00:00:00 Brennan Sheppard Episodic lightheadedness Episodic lightheadedness Disease Acti ve 2017-07-22 00:00:00 Brennan catalan Pulmonary nodule Pulmonary nodule Disease Active 2017-04-15 00:00:00 Brennan Sheppard Chest pain Chest pain Disease Active 2017-04-07 00:00:00 [facility] Secondary hyperparathyroidism, renal Secondary hyperparathyr oidism, renal Disease Active 2017-03-03 00:00:00 Brennan Sheppard Old myocardial infarction Old myocardial infarction Disease Ac tive 2017-03-03 00:00:00 Brennan catalan Major depressive disorder, single episode Major depres sive disorder, single episode Disease Active 2016-12-21 00:00:00 Jennifer Sheppard Insomnia Insomnia Disease Active 2016-12-21 00:00:00 Brennan Sheppard No other household member able to render care No other household member able to render care Disease Active 2016-11-02 00:00:00 Brennan Sheppard Vitamin B deficiency Vitamin B deficiency Disease Active 00:00:00 Brennan Sheppard Dizziness and giddiness Dizziness and giddiness Disease Active 2016-07-15 00:00:00 Brennan catalan Type 2 or unspecified type diabetes mellitus with opht halmic manifestations Type 2 or unspecified type diabetes mellitus with ophthalmic manifestations Disease Active 2016-07-08 00:00:00 Jake Sheppard Anemia in chronic kidney disease Anemia in chronic kidney diseas e Disease Active 2016-05-20 00:00:00 [place] [facility] Obesity Obesity Disease Active 2016-05-20 00:00:00 Brennan Sheppard Vitamin D deficiency Vitamin D deficiency Disease Active 00:00:00 Brennan Sheppard Other and unspecified hyperlipidemia Other and unspecified h yperlipidemia Disease Active 2016-05-07 00:00:00 Overv iew: Last Assessment & Plan: Tolerating her current regimen of statin therapy, advised to continue same. Laboratory studies performed by your office recently requested for review. Brennan Sheppard Coronary atherosclerosis Coronary atherosclerosis Disease Acti ve 2016-05-07 00:00:[address] Fatigue Fatigue Disease Active 2016-05-07 00:00:00 Brennan Sheppard Restless legs syndrome Restless legs syndrome Disease Active 2016-05-07 00:00:[address] Cramp of limb Cramp of limb Disease Active 2016-05-07 00:00:00 Brennan Sheppard Other peripheral vascular disease Other peripheral vascular dise ase Disease Active 2016-05-07 00:00:00 Jake on [employer] Acute on chronic congestive heart failure CHF exacerbation Problem Activ e [facility] Stage 4 chronic kidney disease CKD (chronic kidney dis ease) stage 4, GFR 15-29 ml/min Problem Active [facility] Hypertensive crisis Hypertensive crisis Problem Active [facility] Myocardial infarction Myocardial infarction Disease Active Brennan Sheppard Hypertension Hypertension Disease Active Brennan Sheppard Heart disease Heart disease Disease Active Ov erview: stent, cabg Brennan Sheppard Serum creatinine raised Serum creatinine raised Disease Resolv ed 2019-10-11 00:00:00 2019-10-11 00:00:00 2019-10-11 18:37:07 H levi Sheppard Urinary tract infectious disease Urinary tract infectious diseas e Disease Resolved 2019-10-11 00:00:00 2019-10-11 00:00:00 2019-10-11 18:50:14 Brennan Sheppard ESRD on hemodialysis ESRD on hemodialysis Disease Resolved 08-25 00:00:00 2019-10-11 00:00:00 2019-10-11 18:37:55 Brennan Sheppard Arm swelling Arm swelling Disease Resolved 2019-08-26 00:00:00 2 00:00:00 2019-08-29 07:47:00 Brennan Valdes odist Allergies, Adverse Reactions, Alerts Allergy Name Allergy Type Status Severity Reaction(s) Onset Date Inacti ve Date Treating Clinician Comments Source Sulfa (Sulfonamide Antibiotics) DA Active CA 2019-10-19 00 :00:00 [facility] hydralazine DA Active SV 2019-10-19 00:00:00 [facility] Sulfa (Sulfonamide Antibiotics) DA Active CA 2019-05-18 00 :00:00 [facility] Sulfa (Sulfonamide Antibiotics) Allergy to Substance Active Mild ITCHING 2018-10-31 00:00:00 [facility] Hydralazine Allergy to Substance Active 2017-11-09 00:00:00 [facility] Hydralazine Analogues Drug Allergy Active Other (See C omments) 2017-04-06 00:00:00 Rapid heart beat [facility] Sulfa (Sulfonamide Antibiotics) Drug Allergy Active It Lorrie nielsen 2017-04-06 00:00:00 [facility] Hydralazine Analogues Propensity to adverse reactions to drug Activ e Other (See Comments) 2017-04-06 00:00:00 Rapid heart beatRap id heart beat [facility] [employer] Hydralazine Propensity to adverse reactions to drug Active Palpitations 2016-07-08 00:00:00 Amin Meth odist Sulfa (Sulfonamide Antibiotics) Propensity to adverse reactions to drug Active Other (See Comments) 2016-07-08 00:00:00 Patien t refused allergy to sulpha. Brennan Sheppard Sulfa (Sulfonamide Antibiotics) DA Active CA 2016-05-28 00 :00:00 [facility] hydralazine DA Active 2016-05-28 00:00:00 [facility] Family History Family Member Diagnosis Comments Start Date Stop Date Source Natural brother Diabetes [facility] Natural brother Heart disease [facility] Natural brother Diabetes [facility] Natural brother Heart disease [place] [facility] Natural brother Hypertension Brennan Sheppard Natural father Cancer [facility] Natural father Cancer [facility] Natural mother Diabetes [facility] Natural mother Heart disease [facility] Natural mother Stroke [facility] Natural mother Diabetes [facility] Natural mother Heart disease Brennan [facility] Natural mother Hypertension Brennan Sheppard Natural sister Cancer [facility] Natural sister Diabetes [facility] Natural sister Heart disease [facility] Natural sister Hypertension [facility] Natural sister Diabetes [facility] Natural sister Heart disease Brennan Sheppard Natural sister Hypertension Brennan Sheppard Maternal aunt Colon cancer Brennan Godinez ethodist Social History Social Habit Start Date Stop Date Quantity Comments Source Sex Assigned At Shelbie per[facility] [employer] Exposure to SARS-CoV-2 (event) Not sure Brennan Sheppard Alcohol intake 2019-11-17 00:00:00 2019-11-17 00:00:00 Current non-drinker of alcohol (finding) Brennan Sheppard Smoking Status Start Date Stop Date Source Never smoker Brennan Valdivia t Medications Ordered Medication Name Filled Medication Name Start Date Stop Da te Current Medication? Ordering Clinician Indication Dosage Frequency Signature (SIG) Comments Components Source ALPRAZolam (XANAX) 1 MG tablet 2019-11-17 13:05:20 2019-11-17 00 :00:00 No 1mg QD Take 1 mg by mouth nightly as needed for anxiety. Brennan Sheppard donepeziL (ARICEPT) 10 MG tablet 2019-11-17 13:05:17 Yes 10mg QD Take 10 mg by mouth nightly. Brennan Sheppard aspirin (ECOTRIN) 81 MG enteric coated tablet 2019-11-17 13:05:1 7 Yes 81mg QD Take 81 mg by mouth daily. Twyla Sheppard NIFEdipine CC (ADALAT CC) 60 MG 24 hr tablet 2019-11-17 13:05:17 Yes 60mg QD Take 60 mg by mouth daily. Twyla Sheppard clopidogreL (PLAVIX) 75 mg tablet 2019-11-17 13:05:17 Yes 75mg QD Take 75 mg by mouth daily. Brennan Sheppard gabapentin (NEURONTIN) 600 mg tablet 2019-11-17 13:05:17 Ye s 600mg Q.5D Take 600 mg by mouth 2 (two) times a day. Brennan Sheppard isosorbide mononitrate (IMDUR) 60 MG 24 hr tablet 2019-11-17 13:05:17 Yes 60mg QD Take 60 mg by mouth daily. Brennan Sheppard atorvastatin (LIPITOR) 40 MG tablet 2019-11-17 13:05:17 Yes 40mg QD Take 40 mg by mouth daily. Brennan Sheppard memantine (NAMENDA) 10 MG tablet 2019-11-17 13:05:17 Yes 10mg QD Take 10 mg by mouth daily. Brennan Sheppard gabapentin (NEURONTIN) 300 mg capsule 2019-11-17 13:05:17 Y es 300mg QD Take 300 mg by mouth nightly. Brennan La thodist LORAZepam (Ativan) 0.5 MG tablet 2019-11-17 00:00:00 12-16 23:59:00 Yes .5mg Q8H Take 1 tablet (0 .5 mg total) by mouth every 8 (eight) hours as needed for anxiety for up to 30 days. Brennan Godinez ethodist metoclopramide (Reglan) 5 MG tablet 2019-11-11 00:00:0 0 2019-12-11 23:59:00 Yes 5mg Q.25D Take 1 tablet ( 5 mg total) by mouth 4 (four) times a day before meals and nightly for 30 days. Leroy Sheppard acetaminophen-codeine (TYLENOL WITH CODEINE #3) 300-30 mg pe r tablet 2019-10-31 00:00:00 2019-11-03 23:59:00 No acute pain 1{tbl} Q6H Take 1 tablet by mouth every 6 (six) hours as needed for moderate pain for up to 3 days .acute pain. Brennan Sheppard ondansetron (Zofran) 4 MG tablet 2019-10-14 00:00:00 2019-10 23:59:00 No 4mg Q8H Take 1 tablet (4 mg total) by mouth every 8 (eight) hours as needed for nausea or vomiting for up to 30 days. Leroy Sheppard promethazine (PHENERGAN) 12.5 MG tablet 00:00:00 2019-10-19 23:59:00 No 12.5mg Q8H Take 1 tablet (12.5 mg total) by mouth every 8 (eight) hours as needed for nausea or vomiting for up to 5 days. Brennan Sheppard pantoprazole (PROTONIX) 40 MG EC tablet 00:00:00 2019-11-17 00:00:00 No 40mg QD Take 1 tablet (40 mg total) by mouth daily for 90 days. Brennan Sheppard polyethylene glycol (MIRALAX) 17 gram packet 00:00:00 2019-11-12 23:59:00 No 17g QD Take 17 g by mouth daily for 30 days. Brennan Sheppard lisinopriL (PRINIVIL) 20 mg tablet 2019-10-12 19:38:43 00:00:00 No 20mg QD Take 20 mg by mouth daily. Brennan Sheppard lactulose 20 gram/30 mL solution 2019-10-12 00:00:00 2019-10 00:00:00 No 20g Q.5D Take 30 mL (20 g tot al) by mouth 2 (two) times a day as needed (constipation). Brennan Sheppard senna (SENOKOT) 8.6 mg tablet 2019-10-12 00:00:00 2019-11-17 00: 00:00 No 3{tbl} Q.5D Take 3 tablets by mouth 2 (two) times a day for 90 day s. Brennan Sheppard metoclopramide (Reglan) 5 MG tablet 2019-10-12 00:00:0 0 2019-11-11 00:00:00 No 5mg Q.5D Take 1 tablet ( 5 mg total) by mouth 2 (two) times a day before meals. Brennan Sheppard cefdinir (OMNICEF) 300 MG capsule 2019-10-12 00:00:00 2019 23:59:00 No 300mg Q.5D Take 1 capsule ( 300 mg total) by mouth 2 (two) times a day for 7 days. Brennan Sheppard ondansetron (ZOFRAN) 4 MG tablet 2019-10-08 00:00:00 2019-10 23:59:00 No 4mg Q6H Take 1 tablet (4 mg total) by mouth every 6 (six) hours as needed for nausea or vomiting for up to 30 days. Leroy Sheppard acetaminophen-codeine (TYLENOL WITH CODEINE #3) 300-30 mg pe r tablet 2019-10-03 00:00:00 2019-10-13 23:59:00 No acute pain 1{tbl} Q6H Take 1 tablet by mouth every 6 (six) hours as needed for moderate pain for up to 10 days .acute pain. Brennan Sheppard cephalexin (KEFLEX) 500 MG capsule 2019-10-03 00:00:00 202 0-04-23 00:00:00 No 500mg Q.25D Take 1 capsule ( 500 mg total) by mouth 4 (four) times a day for 7 days. Brennan Sheppard sulfamethoxazole-trimethoprim (BACTRIM SS) 400-80 mg per tab let 2019-09-09 00:00:00 2019-09-19 23:59:00 No 1{tbl} Q.5D Take 1 tablet by mouth every 12 (twelve) hours for 10 days. Brennan london gabapentin (NEURONTIN) 300 mg capsule 2019-09-03 01:35 :51 2019-09-03 00:00:00 No 300mg QD Take 300 mg by mouth every evening. Brennan Sheppard clindamycin (Cleocin HCL) 300 MG capsule 2019-08 00:00:00 2019-09-05 23:59:00 No 300mg Q.[id number] Ta ke 1 capsule (300 mg total) by mouth 3 (three) times a day for 7 days. Brennan Sheppard ALPRAZolam (XANAX) 0.25 MG tablet 2019-08-19 21:57:18 2019 00:00:00 No .25mg QD Take 0.25 mg by mouth nightly as needed for anxiety. Brennan Sheppard mirtazapine (REMERON) 15 MG tablet 2019-08-19 21:56:11 202 00:00:00 No 15mg QD Take 15 mg by mouth nightly. Brennan Sheppard escitalopram (LEXAPRO) 5 MG tablet 2019-08-19 21:54:42 202 00:00:00 No 5mg QD Take 5 mg by mouth daily. Brennan Sheppard atorvastatin (LIPITOR) 80 MG tablet 2019-08-19 21:53:5 8 2019-08-19 00:00:00 No 80mg QD Take 80 mg by mouth nightly. Brennan Sheppard meclizine (ANTIVERT) 25 mg tablet 2019-07-08 17:40:39 2019 00:00:00 No 12.5mg Q.[id number] Take 12.5 mg by mouth 3 (three) times a day as needed for dizziness. Brennan Sheppard LORAZepam (ATIVAN) 0.5 MG tablet 2019-07-08 17:40:33 2019-06 00:00:00 No .5mg Q24H Take 0.5-1 mg by mouth daily as needed for anxi ety. Brennan Sheppard aspirin 325 MG tablet 2019-06-29 07:51:05 2019-06-28 00:00:00 No 325mg QD Take 325 mg by mouth daily. Brennan london aspirin (ECOTRIN) 81 MG enteric coated tablet 20 10-07-08 00:00:00 2019-07-29 23:59:00 No 81mg QD Take 1 tablet (81 mg total) by mouth daily for 30 days. Brennan Sheppard NIFEdipine CC (ADALAT CC) 60 MG 24 hr tablet 16:00:2019-06-28 00:00:00 No 60mg QD Take 60 mg by mouth daily. Brennan Sheppard clopidogrel (PLAVIX) 75 mg tablet 2019-06-28 16::2019 00:00:00 No 75mg QD Take 75 mg by mouth daily. Brennan Sheppard atorvastatin (LIPITOR) 40 MG tablet 2019-06-28 16:00:2 7 2019-06-28 00:00:00 No 40mg QD Take 40 mg by mouth daily. Brennan Sheppard gabapentin (NEURONTIN) 600 mg tablet 2019-06-28 16:00: 2019-06-28 00:00:00 No 600mg Q.5D Take 600 mg by mouth 2 (two) times a day . Brennan Sheppard donepezil (ARICEPT) 10 MG tablet 2019-06-28 16:00:2019-06 00:00:00 No 10mg QD Take 10 mg by mouth nightly. Brennan Sheppard lisinopril (PRINIVIL,ZESTRIL) 20 mg tablet 06-28 16:00:2019-06-28 00:00:00 No 20mg QD Take 20 mg by mouth daily. Brennan Sheppard isosorbide mononitrate (IMDUR) 60 MG 24 hr tablet 2019-06-28 16::2019-06-28 00:00:00 No 60mg QD Take 60 mg by mouth daily. Brennan Sheppard memantine (NAMENDA) 10 MG tablet 2019-06-28 16:00:2019-06 00:00:00 No 10mg QD Take 10 mg by mouth daily. Pt can not remember if she takes this or not Brennan Sheppard NIFEdipine CC (ADALAT CC) 60 MG 24 hr tablet 00:00:00 2019-07-28 23:59:00 No 60mg QD Take 1 tablet (60 mg total) by mouth daily for 30 days. Brennan Sheppard memantine (NAMENDA) 10 MG tablet 2019-06-28 00:00:00 2019-07 23:59:00 No 10mg QD Take 1 tablet (10 mg total) by mouth daily for 30 days. Pt can not remember if she takes this or not Marsha Sheppard gabapentin (NEURONTIN) 600 mg tablet 2019-06-28 00:00: 00 2019-07-28 23:59:00 No 600mg Q.5D Take 1 tablet ( 600 mg total) by mouth 2 (two) times a day for 30 days. Brennan Sheppard lisinopril (PRINIVIL) 20 mg tablet 2019-06-28 00:00:00 23:59:00 No 20mg QD Take 1 tablet (20 mg total) by mouth blayne ly for 30 days. Brennan Sheppard isosorbide mononitrate (IMDUR) 60 MG 24 hr tablet 2019-06-28 00:00:00 2019-07-28 23:59:00 No 60mg QD Take 1 tablet (60 mg total) by mouth daily for 30 days. Brennan Sheppard donepezil (ARICEPT) 10 MG tablet 2019-06-28 00:00:00 2019-07 23:59:00 No 10mg QD Take 1 tablet (10 mg total) by mouth nightly fo r 30 days. Brennan Sheppard clopidogrel (PLAVIX) 75 mg tablet 2019-06-28 00:00:00 2019 23:59:00 No 75mg QD Take 1 tablet (75 mg total) by mouth blayne ly for 30 days. Brennan Sheppard atorvastatin (LIPITOR) 40 MG tablet 2019-06-28 00:00:0 0 2019-07-28 23:59:00 No 40mg QD Take 1 tablet (40 mg total) by mouth blayne ly for 30 days. Brennan Sheppard glyBURIDE (DIABETA) 1.25 MG tablet 2019-06-28 00:00:00 00:00:00 No 1.25mg Q.5D Take 1 tablet (1 .25 mg total) by mouth 2 (two) times a day with meals for 30 days. Brennan Sheppard aspirin 325 MG tablet 2019-06-28 00:00:00 2019-06-29 00:00:00 No 325mg QD Take 1 tablet (325 mg total) by mouth daily for 30 days. Brennan Sheppard linezolid (ZYVOX) 600 mg tablet 2019-06-16 00:00:00 00:00:00 No 600mg Q.5D Take 1 tablet (600 m g total) by mouth 2 (two) times a day for 7 days. Brennan Sheppard linezolid (ZYVOX) 600 mg tablet 2019-06-13 00:00:00 00:00:00 No 600mg Q.5D Take 1 tablet (600 m g total) by mouth 2 (two) times a day for 7 days. Brennan Sheppard glyBURIDE (DIABETA) 1.25 MG tablet 2019-06-03 00:00:00 00:00:00 No 1.25mg Q.5D Take 1 tablet (1 .25 mg total) by mouth 2 (two) times a day with meals for 30 days. Brennan Sheppard cefdinir (OMNICEF) 300 MG capsule 2019-06-03 00:00:00 2018 23:59:00 No 300mg Q.5D Take 1 capsule ( 300 mg total) by mouth 2 (two) times a day for 4 days. Brennan Sheppard insulin lispro (HumaLOG) 100 unit/mL injection 2 00:00:00 2019-06-03 00:00:00 No 0U [id number] In ject 0-7 Units under the skin 3 (three) times a day before meals for 30 days. Brennan Sheppard cefdinir (OMNICEF) 300 MG capsule 2019-06-02 00:00:00 2018 00:00:00 No 300mg Q.5D Take 1 capsule ( 300 mg total) by mouth 2 (two) times a day for 5 days. Brennan Sheppard vit B complex-vitamin C-folic acid (BRUNO-NICK) 0.8 mg tablet 2019-06-01 21:06:2019-06-01 00:00:00 No 1{tbl} QD Take 1 tablet by mouth daily. Brennan Sheppard cephalexin (KEFLEX) 250 MG capsule 2019-04-24 00:00:00 03-01-06 00:00:00 No 250mg Q.5D Take 1 capsule ( 250 mg total) by mouth 2 (two) times a day for 5 days. Brennan Sheppard pindolol (VISKEN) 5 MG tablet 2019-04-21 00:00:00 2019-05-21 23: 59:00 No 5mg Q.5D Take 1 tablet (5 mg total) by mouth 2 (two) time s a day for 30 days. Brennan Sheppard cyclobenzaprine (FLEXERIL) 10 mg tablet 00:00:00 2019-03-23 23:59:00 No 10mg Q.5D Take 1 tablet (10 mg total) by mouth 2 (two) times a day as needed for muscle spasms for up to 30 days. Brennan Sheppard tiotropium (SPIRIVA) 18 mcg per inhalation capsule 2019-02-13 00:00:00 2019-03-15 23:59:00 No 1{capsule} QD Place 1 puff (1 capsule total) into inhaler and inhale once daily for 30 days. Brennan Sheppard montelukast (SINGULAIR) 10 mg tablet 2019-02-12 00:00: 00 2019-03-14 23:59:00 No 10mg QD Take 1 tablet (10 mg total) by mouth nig htly for 30 days. Brennan Sheppard carvedilol (COREG) 3.125 MG tablet 2019-02-10 14:49:01 02-26-21 00:00:00 No 3.125mg Q.5D Take 3.125 mg by mouth 2 (two) times a d ay with meals. Brennan Sheppard escitalopram (LEXAPRO) 5 MG tablet 2019-02-09 10:43:05 02-26-21 00:00:00 No 5mg QD Take 5 mg by mouth daily. Brennan Sheppard carvedilol (COREG) 3.125 MG tablet 2019-02-09 00:00:00 02-27-21 23:59:00 No 3.125mg Q.5D Take 1 tablet (3 .125 mg total) by mouth 2 (two) times a day with meals for 30 days. Brennan Sheppard escitalopram (LEXAPRO) 5 MG tablet 2019-02-09 00:00:00 201 02-27-21 23:59:00 No 5mg QD Take 1 tablet (5 mg total) by mouth tiffanie y for 30 days. Brennan Sheppard insulin GLARGINE (LANTUS) 100 unit/mL injection (vial) 2019-02-09 00:00:00 2019-03-11 23:59:00 No 8U QD Injec t 8 Units under the skin nightly for 30 days. Brennan Sheppard metoclopramide (REGLAN) 5 MG tablet 2019-02-08 11:29:0 9 2019-02-08 00:00:00 No 5mg Q.5D Take 5 mg by mouth 2 (two) times a day. Brennan Sheppard atorvastatin (LIPITOR) 20 MG tablet 2019-02-08 11:27:2 9 2019-02-08 00:00:00 No 20mg QD Take 20 mg by mouth nightly. Brennan Sheppard linagliptin (TRADJENTA) 5 mg tablet 2019-02-08 10:33:0 2 2019-02-08 00:00:00 No 5mg QD Take 5 mg by mouth daily. Brennan Sheppard INSULIN REGULAR, HUMAN (HUMULIN R U-500, CONC, KWIKPEN SUBQ) 2019-02-08 10:33:02 2019-02-08 00:00:00 No 35U Q.5D Inject 35 Units under the skin 2 (two) times a day. Brennan Sheppard Amoxicillin/Potassium Clav (Augmentin 875-125 Tablet) 1 Each Tablet Amoxicillin/Potassium Clav (Augmentin 875-125 Tablet) 1 Each Tablet 2018-11-14 00:00:00 Yes Minh Rubio Sealer Dry Cell 875 Daily [facility] Docusate Sodium (Colace) 100 Mg Cap Docusate Sodium (Colace) 100 Mg Cap 2018-11-13 00:00:00 Yes Sunita Ayala Sealer Dry Cell 100 Every 1 2 Hours [facility] Meclizine Hcl 12.5 Mg Tab Meclizine Hcl 12.5 Mg Tab 2018-11-13 00:00: 00 Yes Sunita Ayala Sealer Dry Cell 12.5 Daily as needed for Dizziness [facility] Melatonin 5 Mg Tablet Melatonin 5 Mg Tablet 2018-11-13 00:00:00 Yes Sunita M Rusk Sealer Dry Cell 5 Bedtime as needed for Insomnia [facility] Megestrol Acetate 40 Mg Tablet Megestrol Acetate 40 Mg Table t 2018-11-04 00:00:00 Yes Sunita M Rusk Sealer Dry Cell 80 Twice Daily Before Meals [facility] Furosemide 40 Mg Tablet Furosemide 40 Mg Tablet 2017-11-11 00:00:00 Yes Sunita M Rusk Sealer Dry Cell 20 Daily [facility] Baclofen 10 Mg Tablet, 10 Mg Oral Baclofen 10 Mg Tablet, 10 Mg Oral 2017-08-12 00:00:00 2017-11-09 00:00:00 No Sunita M Rusk Sealer Dry Cell 10 Daily [facility] Ondansetron (Zofran Odt) 4 Mg Tab.rapdis, 4 Mg Oral On dansetron (Zofran Odt) 4 Mg Tab.rapdis, 4 Mg Oral 2017-08-12 00:00:00 2017-11-09 00:00:00 No Sunita M Rusk Sealer [employer] Cell 4 Every 6 Hours as needed for Nausea [facility] Ascorbic Acid 500 Mg Tablet Ascorbic Acid 500 Mg Tablet 2017-08-05 00:00:00 Yes Sunita M Rusk Sealer [employer] Cell 500 Twice A Day [facility] Lorazepam 0.5 Mg Tablet Lorazepam 0.5 Mg Tablet 2017-08-05 00:00:00 Yes Sunita M Ricky Sealer Dry Cell .5 Daily as needed for Anxiety [facility] Docusate Sodium 100 Mg Capsule, 100 Mg Oral Docusate S odium 100 Mg Capsule, 100 Mg Oral 2017-08-05 00:00:00 2017-11-09 00:00:00 No Sunita M Ricky Sealer Dry Cell 100 Twice A Day [facility] Folic Acid/Cyanocob/Pyridoxine (Nephro-Nick Tablet) 1 Ea Tab, 1 Ea Oral Folic Acid/Cyanocob/Pyridoxine (Nephro-Nick Tablet) 1 Ea Tab, 1 Ea Oral 2017-08-05 00:00:00 2017-11-09 00:00:00 No Sunita M Rusk Sealer Dry Cell 1 Daily [facility] linagliptin 5 mg Tab 2017-04-07 06:19:12 Yes type 2 diabetes mellitus 5mg QD Take 5 mg by mouth daily. [facility] ondansetron (ZOFRAN-ODT) 8 MG disintegrating tablet 2016-06 06:19:12 Yes 8mg Take 8 mg by mouth 2 (two) times daily a s needed for Nausea. [facility] furosemide (LASIX) 40 MG tablet 2017-04-07 06:19:12 Yes 40mg QD Take 40 mg by mouth daily. [facility] carvedilol (COREG) 25 MG tablet 2017-04-07 06:19:12 Yes 25mg Take 25 mg by mouth 2 (two) times daily with breakfast and dinner. [facility] isosorbide mononitrate (IMDUR) 60 MG 24 hr tablet 2017-04-07 06:19:12 Yes 60mg QD Take 60 mg by mouth daily. [facility] LORazepam (ATIVAN) 0.5 MG tablet 2017-04-07 06:19:12 Yes .5mg Take 0.5 mg by mouth every 6 (six) hours as needed for Anxiety. [facility] metoclopramide (REGLAN) 5 MG tablet 2017-04-07 06:19:12 Yes 5mg Q.5D Take 5 mg by mouth 2 (two) times daily. [facility] simvastatin (ZOCOR) 40 MG tablet 2017-04-07 06:19:11 Yes 40mg QD Take 40 mg by mouth nightly. [facility] clopidogrel (PLAVIX) 75 mg tablet 2017-04-07 06:19:11 Yes 75mg QD Take 75 mg by mouth daily. [facility] escitalopram oxalate (LEXAPRO) 5 MG tablet 2017-04-07 06:19:11 Yes 5mg QD Take 5 mg by mouth daily. [facility] NIFEdipine (ADALAT CC) 60 MG 24 hr tablet 2017-04-07 06:19:11 Yes 60mg QD Take 60 mg by mouth daily. [facility] lisinopril (PRINIVIL,ZESTRIL) 20 MG tablet 2017-04-07 06:19:11 Yes 20mg QD Take 20 mg by mouth daily. [facility] gabapentin (NEURONTIN) 300 MG capsule 2017-04-07 05:54:51 Yes 300mg Q.5D Take 300 mg by mouth 2 (two) times daily. [facility] gabapentin (NEURONTIN) 300 mg capsule 2016-05-21 00:00 :00 2019-02-08 00:00:00 No Take 1 capsule by mouth twice a day Brennan Gomezist Aspirin 325 Mg Tablet Aspirin 325 Mg Tablet Yes 325 Daily [facility] Atorvastatin Calcium 40 Mg Tablet Atorvastatin Calcium 40 Mg Tablet Yes 40 Bedtime [facility] Clopidogrel Bisulfate (Plavix) 75 Mg Tablet Clopidogre l Bisulfate (Plavix) 75 Mg Tablet Yes 75 Daily [facility] Donepezil Hcl (Aricept) 5 Mg Tablet Donepezil Hcl (Aricept) 5 Mg Tabl et Yes 10 Bedtime [facility] Escitalopram Oxalate (Lexapro) 10 Mg Tablet Escitalopr am Oxalate (Lexapro) 10 Mg Tablet Yes 5 Daily [facility] Gabapentin 300 Mg Capsule Gabapentin 300 Mg Capsule Yes 600 Twice A Day [facility] Insuln Asp Prt/Insulin Aspart (Novolog M ix 70-30 Flexpen Syrn) 100 Unit/1 Ml Insuln.pen Insuln Asp Prt/Insulin Aspart (Novolog M ix 70-30 Flexpen Syrn) 100 Unit/1 Ml Insuln.pen Yes 30 Before Breakfast [facility] Insuln Asp Prt/Insulin Aspart (Novolog M ix 70-30 Flexpen Syrn) 100 Unit/1 Ml Insuln.pen Insuln Asp Prt/Insulin Aspart (Novolog M ix 70-30 Flexpen Syrn) 100 Unit/1 Ml Insuln.pen Yes 20 Evening [facility] Isosorbide Mononitrate (Isosorbide Mononitrate Er) 60 Mg Tab.er.24h Isosorbide Mononitrate (Isosorbide Mononitrate Er) 60 Mg Tab.er.24h Yes 60 Daily [facility] Memantine Hcl (Namenda) 10 Mg Tablet Memantine Hcl (Namenda) 10 Mg Tablet Yes 10 Bedtime [facility] Prednisone 5 Mg Tablet Prednisone 5 Mg Tablet Yes 5 Daily [facility] Carvedilol 12.5 Mg Tablet, 12.5 Mg Oral Carvedilol 12.5 Mg T ablet, 12.5 Mg Oral 2018-11-04 00:00:00 No 12.5 Twice A Day [facility] Furosemide 40 Mg Tablet, 40 Mg Oral Furosemide 40 Mg Tablet, 40 Mg Oral 2017-11-11 00:00:00 No 40 As Needed as needed for .swelling [facility] Aspirin (Aspir 81) 81 Mg Tablet., 81 Mg Oral Aspirin (Aspir 81) 81 Mg Tablet., 81 Mg Oral 2017-11-09 00:00:00 No 81 Da renu [facility] Atorvastatin Calcium 20 Mg Tablet, 20 Mg Oral Atorvast atin Calcium 20 Mg Tablet, 20 Mg Oral 2017-11-09 00:00:00 No 20 Bedtime [facility] Fenofibrate Nanocrystallized (Fenofibrate) 145 Mg Tabl et, 160 Mg Oral Fenofibrate Nanocrystallized (Fenofibrate) 145 Mg Tablet, 160 Mg Oral 2017-11-09 00:00:00 No 160 Daily [facility] Insulin Human Regular (Humulin-R 10ML Vi al) 100 Units/Ml Inj, 45 Units Subcutaneously Insulin Human Regular (Humulin-R 10ML Vi al) 100 Units/Ml Inj, 45 Units Subcutaneously 2017-11-09 00:00:00 No 45 Twi ce A Day [facility] Linagliptin (Tradjenta) 5 Mg Tablet, 5 Mg Oral Linagli ptin (Tradjenta) 5 Mg Tablet, 5 Mg Oral 2017-11-09 00:00:00 No 5 Daily [facility] Pindolol 5 Mg Tablet, 5 Mg Oral Pindolol 5 Mg Tablet, 5 Mg Oral 2017-11-09 00:00:00 No 5 Twice A Day [facility] Simvastatin (Zocor) 40 Mg Tablet, 40 Mg Oral Simvastat in (Zocor) 40 Mg Tablet, 40 Mg Oral 2017-11-09 00:00:00 No 40 Bedtime [facility] Baclofen 10 Mg Tablet, 10 Mg Oral Baclofen 10 Mg Tablet, 10 Mg O ral 2017-08-05 00:00:00 No 10 Three Times A Day [facility] Cardene , 20 Mg Oral Cardene , 20 Mg Oral 2017-08-05 00:00:00 No 20 Every 8 Hours [facility] Ciprofloxacin Hcl (Cipro) 500 Mg Tablet, 500 Mg Oral C iprofloxacin Hcl (Cipro) 500 Mg Tablet, 500 Mg Oral 2017-08-05 00:00:00 No 500 Every 12 Hours [facility] Levofloxacin (Levaquin) 250 Mg Tablet, 750 Mg Oral Lev ofloxacin (Levaquin) 250 Mg Tablet, 750 Mg Oral 2017-08-05 00:00:00 No 750 D aily [facility] Lisinopril 10 Mg Tablet, 20 Mg Oral Lisinopril 10 Mg Tablet, 20 Mg Oral 2017-08-05 00:00:00 No 20 Daily [facility] Lorazepam 0.5 Mg Tablet, 0.5 Mg Oral Lorazepam 0.5 Mg Tablet, 0. 5 Mg Oral 2017-08-05 00:00:00 No .5 As Needed as needed for Anxiety [facility] Metoclopramide Hcl 10 Mg Tablet, 5 Mg Oral Metoclopram claudette Hcl 10 Mg Tablet, 5 Mg Oral 2017-08-05 00:00:00 No 5 Before Meals And A t Bedtime [facility] Immunizations Ordered Immunization Name Filled Immunization Name Date Status Comments Source Influenza, Unspecified 2018-03-21 00:00:00 Completed [facility] Pneumococcal Polysaccharide 2018-03-21 00:00:00 Completed [facility] Tdap 2017-11-19 00:00:00 Completed [place] [facility] FLUCELVAX QUAD PF 2017-03-18 00:00:00 Completed [facility] Pneumococcal Conjugate 13-Valent 2017-03-18 00:00:00 Compl eted Brennan Sheppard Zoster 2015-06-21 00:00:00 Completed [place] [facility] Influenza, Unspecified 2015-04-10 00:00:00 Completed Amin [facility] Pneumococcal Conjugate 13-Valent 2015-03-21 00:00:00 Compl eted [facility] Tdap 2008-04-23 00:00:00 Completed [place] [facility] Vital Signs Vital Name Observation Time Observation Value Comments Source Systolic blood pressure 2019-11-17 10:40:18 150 mm[Hg] [facility] Diastolic blood pressure 2019-11-17 10:40:18 68 mm[Hg] [facility] Heart rate 2019-11-17 10:40:18 74 /min [facility] Body temperature 2019-11-17 10:40:18 36.5 Yvonne [place] [facility] Respiratory rate 2019-11-17 10:40:18 16 /min [facility] Oxygen saturation in Arterial blood by Pulse oximetry 11-16 10:40:18 97 /min [facility] Body height 2019-11-17 02:15:00 175.3 cm [facility] Body weight 2019-11-17 02:15:00 74.571 kg [facility] BMI 2019-11-17 02:15:00 24.28 kg/m2 [facility] Procedures Procedure Date / Time Performed Performing Clinician Sourc e D-DIMER 2019-11-17 11:22:00 Sha Dubose ethodist TROPONIN 2019-11-17 07:51:00 Nomi Warrenist TROPONIN 2019-11-16 23:04:00 Jeremiah Payne [facility] ECG ED PRELIMINARY INTERPRETATION 2019-11-16 21:12:50 Marcin Payne [facility] XR CHEST 1 VW PORTABLE 2019-11-16 20:19:34 Kristian Stinson B NATRIURETIC PEPTIDE 2019-11-16 19:49:00 Kristian Stinson [facility] HC COMPLETE BLD COUNT W/AUTO DIFF 2019-11-16 19:49:00 Adri Stinson se [facility] COMPREHENSIVE METABOLIC PANEL 2019-11-16 19:49:00 Kristian Stinson [facility] TROPONIN 2019-11-16 19:49:00 Kristian Stinson [facility] ESTIMATED GFR 2019-11-16 19:49:00 Kristian Stinson [facility] ECG 12-LEAD 2019-11-16 19:41:53 Jeremiah Payne POC GLUCOSE 2019-11-11 16:13:00 ObuduluCarolyn HEPATITIS B SURFACE ANTIGEN 2019-11-11 09:20:00 Candido Saini Eleazar Gomzeist POC GLUCOSE 2019-11-11 06:05:00 Obudulu, Carolyn sims [facility] POC GLUCOSE 2019-11-10 21:50:00 Obudulu, Carolyn Ogonnaya Twyla sims [facility] POC GLUCOSE 2019-11-10 15:25:00 Obudulu, Carolyn Ogonnaya Twyla sims [facility] POC GLUCOSE 2019-11-10 13:45:00 Obudulu, Carolyn Ogashleyaya Twyla sims [facility] POC GLUCOSE 2019-11-10 11:24:00 Obudulu, Carolyn Mulleraya Twyla sims [facility] LACTIC ACID LEVEL, SEPSIS - NOW AND REPEAT 2X EVERY 3 HOURS 2019-11-10 06:42:00 Jeremiah Reyes TROPONIN 2019-11-10 06:42:00 Jeremiah Reyes Met hodist POC GLUCOSE 2019-11-10 06:20:00 Obudulu, Carolyn sims [facility] POC GLUCOSE 2019-11-10 01:45:00 Obudulu, Carolyn Sheppard LACTIC ACID LEVEL, SEPSIS - NOW AND REPEAT 2X EVERY 3 HOURS 2019-11-09 23:06:00 Jeremiah Reyes TROPONIN 2019-11-09 23:06:00 Jeremiah Reyes Met hodist CT ABDOMEN PELVIS WO CONTRAST 2019-11-09 22:22:15 Jeremiah Reyes ECG ED PRELIMINARY INTERPRETATION 2019-11-09 21:34:54 Marcin Reyes HC COMPLETE BLD COUNT W/AUTO DIFF 2019-11-09 20:56:00 Marcin Reyes COMPREHENSIVE METABOLIC PANEL 2019-11-09 20:56:00 Jeremiah Reyes LACTIC ACID LEVEL, SEPSIS - NOW AND REPEAT 2X EVERY 3 HOURS 2019-11-09 20:56:00 Jeremiah Reyes CREATINE KINASE, TOTAL (CPK) 2019-11-09 20:56:00 Jeremiah Reyes TROPONIN 2019-11-09 20:56:00 Jeremiah Reyes Met hodist B NATRIURETIC PEPTIDE 2019-11-09 20:56:00 Jeremiah Reyes [facility] ESTIMATED GFR 2019-11-09 20:56:00 Jeremiah Reyes Met hodist XR CHEST 1 VW PORTABLE 2019-11-09 20:30:06 Jeremiah Reyes [facility] ECG 12-LEAD 2019-11-09 20:27:33 Jeremiah Reyes Met [facility]odist XR HUMERUS RIGHT 2019-11-05 22:05:52 Jeremiah Payne TROPONIN 2019-11-02 09:45:00 Letty Schwartz HEPATITIS B SURFACE ANTIGEN 2019-11-02 09:15:00 Danna Naranjo HEPATITIS B SURFACE AB, QUANTITATIVE 2019-11-02 09:15:00 Danna Naranjo TROPONIN 2019-11-02 06:38:00 Letty Schwartz POC GLUCOSE 2019-11-02 05:16:00 Letty Schwartz XR CHEST 1 VW PORTABLE 2019-11-02 04:09:56 Letty Schwartz ECG 12-LEAD 2019-11-02 03:56:40 Letty Schwartz HC COMPLETE BLD COUNT W/AUTO DIFF 2019-11-02 03:49:00 Letty Schwartz PROTHROMBIN TIME WITH INR 2019-11-02 03:49:00 Dayana Schwartz COMPREHENSIVE METABOLIC PANEL 2019-11-02 03:49:00 Blanca Schwartz ESTIMATED GFR 2019-11-02 03:49:00 Letty Schwartz TROPONIN 2019-11-02 03:49:00 Letty Schwartz B NATRIURETIC PEPTIDE 2019-11-02 03:49:00 Letty Schwartz Brennan Sheppard NAIL REMOVAL 2019-10-31 01:12:46 Jordan Herr Brennan Sheppard XR TOE 2+ VW RIGHT 2019-10-30 21:55:14 Hilda, Melissa Brennan Godinez ethodist LACTIC ACID LEVEL, SEPSIS - NOW AND REPEAT 2X EVERY 3 HOURS 2019-10-18 02:13:00 Jeremiah Payne TROPONIN 2019-10-18 02:13:[address] CHEST WO CONTRAST 2019-10-18 00:03:08 Jeremiah Payne stovirgen Sheppard CT HEAD WO CONTRAST 2019-10-18 00:02:15 Jeremiah Payne HC COMPLETE BLD COUNT W/AUTO DIFF 2019-10-17 23:46:00 Marcin Payne COMPREHENSIVE METABOLIC PANEL 2019-10-17 23:46:00 Jeremiah Payne LACTIC ACID LEVEL, SEPSIS - NOW AND REPEAT 2X EVERY 3 HOURS 2019-10-17 23:46:00 Jeremiah Payne LIPASE LEVEL 2019-10-17 23:46:00 Jeremiah Payne TROPONIN 2019-10-17 23:46:00 Jeremiah Payne B NATRIURETIC PEPTIDE 2019-10-17 23:46:00 Jeremiah Payne ESTIMATED GFR 2019-10-17 23:46:00 Jeremiah Payne ECG ED PRELIMINARY INTERPRETATION 2019-10-17 23:35:36 Marcin Payne ECG 12-LEAD 2019-10-17 23:31:12 Jeremiah Payne HC COMPLETE BLD COUNT W/AUTO DIFF 2019-10-14 14:42:00 Marcin Reyes BASIC METABOLIC PANEL 2019-10-14 14:42:00 Jeremiah Reyes [facility] HEPATIC FUNCTION PANEL 2019-10-14 14:42:00 Jeremiah Reyes [facility] LIPASE LEVEL 2019-10-14 14:42:00 Jeremiah Reyes hodist CREATINE KINASE, TOTAL (CPK) 2019-10-14 14:42:00 Jeremiah Reyes TROPONIN 2019-10-14 14:42:00 Jeremiah Reyes Met hodist B NATRIURETIC PEPTIDE 2019-10-14 14:42:00 Jeremiah Reyes [facility] ESTIMATED GFR 2019-10-14 14:42:00 Jerem[address] Re[address] Met hodist CT HEAD WO CONTRAST 2019-10-14 14:30:[address] ABDOMEN PELVIS WO CONTRAST 2019-10-14 14:29:28 Jeremiah Reyes [facility] ECG 12-LEAD 2019-10-14 14:01:09 Jeremiah Reyes Met hodist ECG ED PRELIMINARY INTERPRETATION 2019-10-14 13:33:55 Marcin Reyesl Flor Sheppard POC GLUCOSE 2019-10-12 11:46:00 Kyle Hammer [facility] HEMOGLOBIN A1C 2019-10-12 10:00:00 Kyle Hammer [facility] BASIC METABOLIC PANEL 2019-10-12 10:00:00 Kyle Hammer [facility] ESTIMATED GFR 2019-10-12 10:00:00 Kyle Hammer [facility] POC GLUCOSE 2019-10-12 05:56:00 Kyle Hammer [facility] POC GLUCOSE 2019-10-11 20:44:00 Kyle Hammer Amin [facility] POC GLUCOSE 2019-10-11 16:07:00 Kyle Hammer [facility] XR ABDOMEN 1 VW PORTABLE 2019-10-11 12:28:19 Kyle Hammer [facility] HC COMPLETE BLD COUNT W/AUTO DIFF 2019-10-11 11:41:00 Pia Hammer [facility] BASIC METABOLIC PANEL 2019-10-11 11:41:00 Kyle Hammer [facility] HEPATIC FUNCTION PANEL 2019-10-11 11:41:00 Kyle Hammerston [facility] LIPASE LEVEL 2019-10-11 11:41:00 HammerKyle dale [facility] AMYLASE LEVEL 2019-10-11 11:41:00 Kyle Hammer [facility] ESTIMATED GFR 2019-10-11 11:41:00 Kyle Hammer [facility] POC GLUCOSE 2019-10-11 10:49:00 Hammer Kyle Osorio [facility] POC GLUCOSE 2019-10-11 06:22:00 Marilyn Lewis HEPATITIS B SURFACE ANTIGEN 2019-10-10 15:32:00 Candido Saini HEMODIALYSIS 2019-10-10 14:59:[address] RENAL STONE PROTOCOL 2019-10-10 14:59:02 Gio Trimble XR CHEST 1 VW PORTABLE 2019-10-10 14:41:52 Gio Trimble HC COMPLETE BLD COUNT W/AUTO DIFF 2019-10-10 13:56:00 Aysha Trimble PROTHROMBIN TIME WITH INR 2019-10-10 13:56:00 Gio Trimble COMPREHENSIVE METABOLIC PANEL 2019-10-10 13:56:00 Gio Trimble TROPONIN 2019-10-10 13:56:00 Gio Trimble ethodist B NATRIURETIC PEPTIDE 2019-10-10 13:56:00 Gio Trimble ESTIMATED GFR 2019-10-10 13:56:00 Gio Trimble ethodist LIPASE LEVEL 2019-10-10 13:56:00 Gio Trimble ethodist ECG 12-LEAD 2019-10-10 13:42:28 Gio Trimble ethodist ECG ED PRELIMINARY INTERPRETATION 2019-10-10 13:38:04 Aysha Trimble URINE CULTURE 2019-10-08 15:15:00 Antwon Olvera odist URINALYSIS SCREEN AND MICROSCOPY, WITH REFLEX TO CULTURE 14:36:00 Antwon Olvera XR CHEST 1 VW PORTABLE 2019-10-08 13:38:29 WadeAntwon on [facility] PROTHROMBIN TIME WITH INR 2019-10-08 13:09:00 WadeAntwon [facility] PARTIAL THROMBOPLASTIN TIME (PTT) 2019-10-08 13:09:00 WadeMi Brennan Sheppard COMPREHENSIVE METABOLIC PANEL 2019-10-08 13:09:00 WadeAntwon nuno i [facility] LIPASE LEVEL 2019-10-08 13:09:00 WadeAntwon Meth odist ESTIMATED GFR 2019-10-08 13:09:00 WadeAntwon Meth odalisha HC COMPLETE BLD COUNT W/AUTO DIFF 2019-10-08 13:04:00 WadeMi [facility] HEPATITIS ACUTE PANEL 2019-10-08 13:04:00 WadeAntwon n [facility] ECG ED PRELIMINARY INTERPRETATION 2019-10-08 12:45:11 Wade Mi Tolliver Brennan Sheppard ECG 12-LEAD 2019-10-08 12:38:09 Antwon Olvera Meth odist URINE CULTURE 2019-10-03 20:17:00 Omar Rodríguez HC COMPLETE BLD COUNT W/AUTO DIFF 2019-10-03 19:57:00 Ese Rodríguez COMPREHENSIVE METABOLIC PANEL 2019-10-03 19:57:00 Omar Rodríguez ESTIMATED GFR 2019-10-03 19:57:00 Omar Rodríguez URINALYSIS SCREEN AND MICROSCOPY, WITH REFLEX TO CULTURE 19:47:00 Omar Rodríguez BLOOD CULTURE, AEROBIC & ANAEROBIC 2019-09-23 21:49:00 Edward Payne HC COMPLETE BLD COUNT W/AUTO DIFF 2019-09-23 21:49:00 Marcin Payne COMPREHENSIVE METABOLIC PANEL 2019-09-23 21:49:00 Jeremiah Payne LACTIC ACID LEVEL, SEPSIS - NOW AND REPEAT 2X EVERY 3 HOURS 2019-09-23 21:49:00 Jeremiah Payne LIPASE LEVEL 2019-09-23 21:49:00 Jeremiah Payne TROPONIN 2019-09-23 21:49:00 Jeremiah Payne B NATRIURETIC PEPTIDE 2019-09-23 21:49:00 Jeremiah Payne MAGNESIUM LEVEL 2019-09-23 21:49:00 Jeremiah Payne PROTHROMBIN TIME WITH INR 2019-09-23 21:49:00 Jeremiah Payne PARTIAL THROMBOPLASTIN TIME (PTT) 2019-09-23 21:49:00 Marcin Payne CREATINE KINASE, TOTAL (CPK) 2019-09-23 21:49:00 Jeremiah Payne BETA HYDROXYBUTYRATE 2019-09-23 21:49:00 Jeremiah Payne ESTIMATED GFR 2019-09-23 21:49:00 Jeremiah Payne BLOOD CULTURE, AEROBIC & ANAEROBIC 2019-09-23 21:41:00 Edward Payne XR CHEST 1 VW PORTABLE 2019-09-23 21:11:51 Jeremiah Payne [place] [facility] ECG ED PRELIMINARY INTERPRETATION 2019-09-23 21:00:16 Marcin Payne ECG 12-LEAD 2019-09-23 20:35:03 Jeremiah Payne TROPONIN 2019-09-12 16:58:00 Deshaun Figueroa ton [facility] XR CHEST 1 VW PORTABLE 2019-09-12 14:34:22 Deshaun Figueroa ECG ED PRELIMINARY INTERPRETATION 2019-09-12 14:19:23 Virgen Figueroa-Aldo Langley Amin [facility] HC COMPLETE BLD COUNT W/AUTO DIFF 2019-09-12 13:41:00 Virgen Figueroa-Aldo Sheppard COMPREHENSIVE METABOLIC PANEL 2019-09-12 13:41:00 Mike Figueroa CREATINE KINASE, TOTAL (CPK) 2019-09-12 13:41:00 Sherwin Figueroa [facility] TROPONIN 2019-09-12 13:41:00 Deshaun Figueroa [place] [facility] B NATRIURETIC PEPTIDE 2019-09-12 13:41:00 Deshaun Figueroa [facility] ESTIMATED GFR 2019-09-12 13:41:00 Deshaun Figueroa [facility] ECG 12-LEAD 2019-09-12 13:36:00 Deshaun Figueroa [facility] URINE CULTURE 2019-09-09 12:47:00 Dee Miller Meth odalisha URINALYSIS SCREEN AND MICROSCOPY, WITH REFLEX TO CULTURE 202 12:23:00 Dee Miller [facility] POC GLUCOSE 2019-09-09 11:46:00 Abner Paula [facility] HEPATITIS B SURFACE ANTIGEN 2019-09-09 11:40:00 Danna Naranjo [facility] HEMODIALYSIS 2019-09-09 08:33:25 Danna Naranjo on [facility] POC GLUCOSE 2019-09-09 06:21:00 Abner Paula [facility] POC GLUCOSE 2019-09-08 20:23:00 Abner Paula [facility] POC GLUCOSE 2019-09-08 17:30:00 Abner Paula [facility] POC GLUCOSE 2019-09-08 11:26:00 Abner Paula [facility] POC GLUCOSE 2019-09-08 06:21:00 Porfirio Finney [facility] BLOOD CULTURE, AEROBIC & ANAEROBIC 2019-09-08 04:54:00 Virgen Miller [facility] TROPONIN 2019-09-08 04:54:00 CostaEdwin hwang Met hodist HC COMPLETE BLD COUNT W/AUTO DIFF 2019-09-08 04:54:00 CostaShivam hwang [facility] BASIC METABOLIC PANEL 2019-09-08 04:54:00 Edwin Skelton on [facility] ESTIMATED GFR 2019-09-08 04:54:00 Edwin Skelton Met hodist B NATRIURETIC PEPTIDE 2019-09-08 04:54:00 Edwin Skelton [facility] TROPONIN 2019-09-07 23:45:00 Edwin Skelton Met hodist POC GLUCOSE 2019-09-07 23:41:[address] CHEST WO CONTRAST 2019-09-07 21:35:50 Edwin Skelton [facility] HC COMPLETE BLD COUNT W/AUTO DIFF 2019-09-07 20:53:00 Costa, Shivam Sheppard COMPREHENSIVE METABOLIC PANEL 2019-09-07 20:53:00 Edwin Skelton TROPONIN 2019-09-07 20:53:00 Edwin Skelton Met hodist ESTIMATED GFR 2019-09-07 20:53:00 Edwin Skelton Met h[facility] B NATRIURETIC PEPTIDE 2019-09-07 20:53:00 Dee Miller [employer] ECG 12-LEAD 2019-09-07 20:44:51 Edwin Skelton [facility] TROPONIN 2019-09-05 17:19:00 Foster Nye TROPONIN 2019-09-05 14:27:00 Foster Nye XR CHEST 1 VW PORTABLE 2019-09-05 12:19:26 Foster Nye ECG ED PRELIMINARY INTERPRETATION 2019-09-05 11:50:52 Alfonso Nye HC COMPLETE BLD COUNT W/AUTO DIFF 2019-09-05 11:28:00 Alfonso Nye PROTHROMBIN TIME WITH INR 2019-09-05 11:28:00 Foster Nye PARTIAL THROMBOPLASTIN TIME (PTT) 2019-09-05 11:28:00 Alfonso Nye COMPREHENSIVE METABOLIC PANEL 2019-09-05 11:28:00 Foster Nye TROPONIN 2019-09-05 11:28:00 Foster Nye B NATRIURETIC PEPTIDE 2019-09-05 11:28:00 Foster Nye ESTIMATED GFR 2019-09-05 11:28:00 Foster Nye ECG 12-LEAD 2019-09-05 10:15:43 Foster Nye HC COMPLETE BLD COUNT W/AUTO DIFF 2019-09-04 08:50:00 Ekta Daly RENAL FUNCTION PANEL 2019-09-04 06:30:00 Ekta Wong MAGNESIUM LEVEL 2019-09-04 06:30:00 Ekta Wong ESTIMATED GFR 2019-09-04 06:30:00 Ekta Wong [employer] POC GLUCOSE 2019-09-04 05:49:00 Ekta Wong [employer] POC GLUCOSE 2019-09-03 21:09:00 Ekta Wong BLOOD CULTURE, AEROBIC & ANAEROBIC 2019-09-03 15:25:00 Ekta Dougherty [employer] POC GLUCOSE 2019-09-03 15:18:00 Ekta Wong BLOOD CULTURE, AEROBIC & ANAEROBIC 2019-09-03 15:00:00 Ekta Dougherty [employer] POC GLUCOSE 2019-09-03 11:07:00 Ekta Wong [employer] POC GLUCOSE 2019-09-03 06:09:00 Hermilo Valenzuela [employer] TROPONIN 2019-09-03 05:52:00 Deshaun Figueroa [employer] LACTIC ACID LEVEL 2019-09-03 05:52:00 Jessejoseph Too Sheaoka Brennan [employer] POC GLUCOSE 2019-09-03 01:52:00 Hermilo Valenzuela [facility] TROPONIN 2019-09-03 00:18:00 Deshaun Figueroa [employer] XR CHEST 1 VW PORTABLE 2019-09-02 21:42:43 Deshaun Figueroa INFLUENZA ANTIGEN TEST, REFLEX NEGATIVE TO RPP 2019-09-02 21 :40:00 Deshaun Figueroa [facility] RESPIRATORY PATHOGEN PANEL 2019-09-02 21:40:00 Elaine Figueroa [facility] GROUP A STREP, RAPID ANTIGEN 2019-09-02 21:39:00 Sherwin Figueroarichie Shivam [facility] STREP SCREEN CULTURE 2019-09-02 21:39:00 Deshaun Figueroa [facility] HC COMPLETE BLD COUNT W/AUTO DIFF 2019-09-02 21:25:00 Virgen Figueroa [facility] COMPREHENSIVE METABOLIC PANEL 2019-09-02 21:25:00 Mike Figueroa [facility] CREATINE KINASE, TOTAL (CPK) 2019-09-02 21:25:00 Sherwin Figueroa [facility] TROPONIN 2019-09-02 21:25:00 Deshaun Figueroa [employer] B NATRIURETIC PEPTIDE 2019-09-02 21:25:00 Deshaun Figueroa ESTIMATED GFR 2019-09-02 21:25:00 Deshaun Figueroa [facility] ECG 12-LEAD 2019-09-02 21:12:10 Deshaun Figueroa [facility] ECG ED PRELIMINARY INTERPRETATION 2019-09-02 21:11:25 Virgen Figueroa [facility] HC COMPLETE BLD COUNT W/AUTO DIFF 2019-08-29 08:13:00 Chaparro Hansen [facility] COMPREHENSIVE METABOLIC PANEL 2019-08-29 08:13:00 Chaparro Monterroso [facility] ESTIMATED GFR 2019-08-29 08:13:00 Chaparro Stinson [facility] HEMODIALYSIS 2019-08-29 07:52:47 Danna Naranjo on [facility] VANCOMYCIN LEVEL, RANDOM 2019-08-29 06:36:00 Ino Stinson [facility] POC GLUCOSE 2019-08-28 19:40:00 Abouelseoud, Tanseem Hamad M ohamed A Brennan [employer] POC GLUCOSE 2019-08-28 16:20:00 Abouelseoud, Tanseem Hamad M ohamed A Amin [employer] POC GLUCOSE 2019-08-28 11:48:00 Abouelseoud, Paulaseem Hamad M ohamed A Amin [facility] TYPE AND SCREEN 2019-08-28 11:28:00 VowelsDhaval Met [facility] PREPARE RBC 2019-08-28 11:28:00 VowelsDhaval Met [facility] CBC WITH PLATELET AND DIFFERENTIAL 2019-08-28 07:44:00 Aboue lseoud, Tanseem Hamad Mohamed A Amin [facility] MANUAL DIFFERENTIAL 2019-08-28 07:44:00 Abouelseoud, Tanseem Ham ad Mohamed A [facility] POC GLUCOSE 2019-08-28 06:20:00 Abouelseoud, Tanseem Harryad M ohamed A [facility] CBC WITH PLATELET AND DIFFERENTIAL 2019-08-28 06:07:00 Aboue lseoud, Tanseem Hamad Mohamed A Amin [facility] COMPREHENSIVE METABOLIC PANEL 2019-08-28 06:07:00 Abouelseou d, Tanseem Hamad Mohamed A Amin [facility] PARTIAL THROMBOPLASTIN TIME (PTT) 2019-08-28 06:07:00 VowelsJrist PROTHROMBIN TIME WITH INR 2019-08-28 06:07:00 VowelsDhaval [facility] ESTIMATED GFR 2019-08-28 06:07:00 Abouelseoud, Tanseem Hamad M ohamed A Amin [facility] MANUAL DIFFERENTIAL 2019-08-28 06:07:00 Abouelseoud, Tanseem Ham ad Mohamed A [facility] POC GLUCOSE 2019-08-27 21:15:00 Abouelseoud, Tanseem Hamad M ohamed A Amin [employer] POC GLUCOSE 2019-08-27 17:14:00 Abouelseoud, Tanseem Hamad M ohamed A [facility] POC GLUCOSE 2019-08-27 12:02:00 Abouelsebertod, Tanseem Hamad M ohamed A [facility] HC COMPLETE BLD COUNT W/AUTO DIFF 2019-08-27 08:22:00 Abouel seoudChaparroamed A [facility] COMPREHENSIVE METABOLIC PANEL 2019-08-27 08:22:00 Abouelseou basilia, Chaparro Ackermanamed A Amin [facility] ESTIMATED GFR 2019-08-27 08:22:00 AbouelChaparro welch ohamed A [facility] POC GLUCOSE 2019-08-27 06:16:00 AbouelChaparro welch ohamed A [facility] POC GLUCOSE 2019-08-26 19:47:00 AbouelsebertodChaparro ohamed A [facility] TROPONIN 2019-08-26 19:35:00 AbouelseChaparro devries ohamed A [facility] POC GLUCOSE 2019-08-26 16:57:00 AbouelbertoChaparro willett ohamed A [facility] HEPATITIS B SURFACE ANTIGEN 2019-08-26 15:27:00 Danna Naranjo [facility] TROPONIN 2019-08-26 13:20:00 AbouelsekayceChaparro ohamed A [facility] POC GLUCOSE 2019-08-26 11:50:00 AbouelbertoChaparro willett ohamed A [facility] BLOOD CULTURE, AEROBIC & ANAEROBIC 2019-08-26 08:45:00 Aboue lsebertodChaparroamed A [facility] BLOOD CULTURE, AEROBIC & ANAEROBIC 2019-08-26 08:40:00 Aboue lsekayceChaparroamed A [facility] TROPONIN 2019-08-26 08:19:00 AbouelsekayceChapraro ohamed A [facility] HEMODIALYSIS 2019-08-26 07:48:38 AbouelsekayceChaparro M ohamed A [facility] ECG 12-LEAD 2019-08-26 07:31:02 AbomelizasekayceChaparro ohamed A [facility] US DUPLEX VENOUS UPPER EXTREMITY LEFT 2019-08-26 05:53:00 Jeremiah Payne TROPONIN 2019-08-26 04:18:00 Jeremiah Payne TROPONIN 2019-08-26 01:34:[address] ANGIOGRAM UPPER EXTREMITY LEFT W WO CONTRAST 2019-08-26 0 1:23:45 Jeremiah Payne HC COMPLETE BLD COUNT W/AUTO DIFF 2019-08-25 23:17:00 Marcin Payne COMPREHENSIVE METABOLIC PANEL 2019-08-25 23:17:00 Jeremiah Payne TROPONIN 2019-08-25 23:17:00 Jeremiah Payne PROTHROMBIN TIME WITH INR 2019-08-25 23:17:00 Jeremiah Payne PARTIAL THROMBOPLASTIN TIME (PTT) 2019-08-25 23:17:00 Marcin Payne ESTIMATED GFR 2019-08-25 23:17:00 Jeremiah Reyes POC GLUCOSE 2019-08-20 13:45:00 Ekta Wong.S Brennan Sheppard POC GLUCOSE 2019-08-20 07:49:00 Ekta Wongeim E.S Brennan [facility] POC GLUCOSE 2019-08-20 06:11:00 Judith Ektasuyapa Ninoelmoneim E.S Brennan [facility] HC COMPLETE BLD COUNT W/AUTO DIFF 2019-08-20 06:07:00 Elbert Lux Janis Brennan Sheppard BASIC METABOLIC PANEL 2019-08-20 06:07:00 MaciKriswill Monse wells Brennan Sheppard ESTIMATED GFR 2019-08-20 06:07:00 Maci Kriswill Janis Leroy usrobin [facility] HEMOGLOBIN A1C 2019-08-20 06:07:00 Maci Krisrine Monseoka Leroy usrobin [facility] TROPONIN 2019-08-20 01:26:00 Omar Rodríguez [facility] HEMODIALYSIS 2019-08-20 00:07:00 Kraig Serrato TROPONIN 2019-08-19 22:40:00 Omar Rodríguez [employer] HEPATITIS B SURFACE ANTIGEN 2019-08-19 22:40:00 Kraig Serrato ECG ED PRELIMINARY INTERPRETATION 2019-08-19 20:46:19 Reichl, Er ik Marcus Sheppard XR CHEST 1 VW 2019-08-19 20:04:03 Foster Nye [facility] HC COMPLETE BLD COUNT W/AUTO DIFF 2019-08-19 19:45:00 Marcos Ese korey Amin [employer] COMPREHENSIVE METABOLIC PANEL 2019-08-19 19:45:00 Omar Rodríguez [employer] TROPONIN 2019-08-19 19:45:00 Omar Rodríguez [employer] B NATRIURETIC PEPTIDE 2019-08-19 19:45:00 Omar Rodríguez [facility] ESTIMATED GFR 2019-08-19 19:45:00 Omar Rodríguez [facility] ECG 12-LEAD 2019-08-19 18:51:08 Omar Rodríguez [employer] TROPONIN 2019-08-15 19:37:00 de Letty Metz [facility] ECG ED PRELIMINARY INTERPRETATION 2019-08-15 18:46:03 Alfonso Nye [facility] HC COMPLETE BLD COUNT W/AUTO DIFF 2019-08-15 17:15:00 Letty Schwartz COMPREHENSIVE METABOLIC PANEL 2019-08-15 17:15:00 Blanca Schwartz TROPONIN 2019-08-15 17:15:00 Letty Schwartz [employer] B NATRIURETIC PEPTIDE 2019-08-15 17:15:00 Letty Schwartz ESTIMATED GFR 2019-08-15 17:15:00 Letty Schwartz [facility] ECG 12-LEAD 2019-08-15 16:41:14 Letty Schwartz [employer] POC GLUCOSE 2019-08-15 16:33:00 de Letty Metz [employer] XR CHEST 1 VW PORTABLE 2019-08-10 07:13:01 Jeremiah Payne TROPONIN 2019-08-10 06:58:00 Jeremiah Payne HC COMPLETE BLD COUNT W/AUTO DIFF 2019-08-10 05:13:00 Marcin Payne COMPREHENSIVE METABOLIC PANEL 2019-08-10 05:13:00 Jeremiah Payne TROPONIN 2019-08-10 05:13:00 Jeremiah Payne B NATRIURETIC PEPTIDE 2019-08-10 05:13:00 Jeremiah Payne ESTIMATED GFR 2019-08-10 05:13:00 Jeremiah Payne ECG ED PRELIMINARY INTERPRETATION 2019-08-10 04:44:19 Marcin Payne ECG 12-LEAD 2019-08-10 04:07:40 Jeremiah Payne POTASSIUM LEVEL 2019-07-19 12:55:00 Hermilo Valenzuelamad Dominick [facility] POC GLUCOSE 2019-07-19 11:15:00 Jelani Valenzuelaed Manzano Dominick [facility] POC GLUCOSE 2019-07-19 06:06:00 Abner Paula [employer] POC GLUCOSE 2019-07-18 20:45:00 Abner Paula [facility] POC GLUCOSE 2019-07-18 16:16:00 Abner Paula [facility] POC GLUCOSE 2019-07-18 12:28:00 Abner Paula Amin [facility] HEPATITIS B SURFACE ANTIGEN 2019-07-18 10:06:00 Candido Saini HEMODIALYSIS 2019-07-18 07:56:18 Nikia Sainiist POC GLUCOSE 2019-07-18 06:27:00 Chaparro Stinson HEMOGLOBIN A1C 2019-07-18 05:54:00 Manduku Krisrine [place] Leroy rodriguez [facility] TROPONIN 2019-07-17 22:40:00 WadeAntwon Meth odist POTASSIUM LEVEL 2019-07-17 22:40:00 Wade, Antwon Amin Meth odist POC GLUCOSE 2019-07-17 21:30:00 Chaparro Stinsonist TROPONIN 2019-07-17 19:33:00 WadeAntwon Meth odist XR CHEST 2 VW 2019-07-17 17:53:02 WadeAntwon Meth odist HC COMPLETE BLD COUNT W/AUTO DIFF 2019-07-17 17:20:00 Wade, Din h Unruly Amin [employer] COMPREHENSIVE METABOLIC PANEL 2019-07-17 17:20:00 Wade, Antwontwyla Schneider i Brennan [employer] TROPONIN 2019-07-17 17:20:00 WadeAntwon Brennan Meth odist B NATRIURETIC PEPTIDE 2019-07-17 17:20:00 Antwon Olvera Marsha n [facility] ESTIMATED GFR 2019-07-17 17:20:00 Wade, Antwon Tolliver Brennan Meth odist DC CRITICAL CARE, E/M 30-74 MINUTES 2019-07-17 17:04:28 Wade, D inh Wyattsuyapa Amin [facility] ECG ED PRELIMINARY INTERPRETATION 2019-07-17 17:04:28 Wade, Din twyla Tolliver Brennan [facility] ECG 12-LEAD 2019-07-17 16:31:21 Wade Antwon Tolliver Brennan Meth odist HEPATITIS B SURFACE ANTIGEN 2019-07-09 18:45:00 Geri Dubose [facility] HEMODIALYSIS 2019-07-09 16:32:06 Geri Dubose hodist POC GLUCOSE 2019-07-09 16:03:00 Abner Paula [employer] POC GLUCOSE 2019-07-09 11:39:00 Abner Paula [employer] POC GLUCOSE 2019-07-09 06:29:00 Abner Paula [facility] HC COMPLETE BLD COUNT W/AUTO DIFF 2019-07-09 04:40:00 Elbert Lux [employer] BASIC METABOLIC PANEL 2019-07-09 04:40:00 Too Lux [facility] ESTIMATED GFR 2019-07-09 04:40:00 [facility] B NATRIURETIC PEPTIDE 2019-07-09 04:40:00 Too Lux [facility] TROPONIN 2019-07-08 23:13:00 Deshaun Figueroa [place] [facility] POC GLUCOSE 2019-07-08 21:50:00 Abner Paula [facility] TROPONIN 2019-07-08 20:10:00 Deshaun Figueroa [place] [facility] ECG 12-LEAD 2019-07-08 18:56:56 Deshaun Figueroa [place] [facility] POC GLUCOSE 2019-07-08 18:14:00 Deshaun Figueroa [employer] XR CHEST 1 VW PORTABLE 2019-07-08 17:41:06 Deshaun Figueroa INFLUENZA ANTIGEN TEST, REFLEX NEGATIVE TO RPP 2019-07-08 17 :26:00 Deshaun Figueroa RESPIRATORY PATHOGEN PANEL 2019-07-08 17:26:00 Ealine Figueroa DC CRITICAL CARE, E/M 30-74 MINUTES 2019-07-08 17:25:52 Deshaun Figueroa ECG ED PRELIMINARY INTERPRETATION 2019-07-08 17:25:52 Virgen Figueroa HC COMPLETE BLD COUNT W/AUTO DIFF 2019-07-08 17:15:00 Virgen Figueroa COMPREHENSIVE METABOLIC PANEL 2019-07-08 17:15:00 Mike Figueroa TROPONIN 2019-07-08 17:15:00 Deshaun Figueroa [employer] B NATRIURETIC PEPTIDE 2019-07-08 17:15:00 Deshaun Figueroa ESTIMATED GFR 2019-07-08 17:15:00 Deshaun Figueroa [facility] ECG 12-LEAD 2019-07-08 16:45:16 Deshaun Figueroa [employer] POC GLUCOSE 2019-06-29 06:24:00 Enzo Canas Meth odist POC GLUCOSE 2019-06-28 20:59:00 Enzo Canas Meth odist POC GLUCOSE 2019-06-28 15:55:00 Enzo Canas Meth odist POC GLUCOSE 2019-06-28 10:37:00 Enzo Canas Meth odist TTE COMPLETE, WO CONTRAST, W DOPPLER ([id number]) 2019-06-28 08:0 0:00 Too Lux [facility] ECG 12-LEAD 2019-06-28 06:06:00 Nomi Beyer POC GLUCOSE 2019-06-28 06:04:00 Chaparro Stinson HC COMPLETE BLD COUNT W/AUTO DIFF 2019-06-28 05:41:00 Nomi Beyer COMPREHENSIVE METABOLIC PANEL 2019-06-28 05:41:00 Nomi Beyer ESTIMATED GFR 2019-06-28 05:41:00 Nomi Beyer TROPONIN 2019-06-28 05:41:00 Nomi Beyer LIPID PANEL 2019-06-28 05:41:00 Nomi Beyer ECG 12-LEAD 2019-06-28 02:54:12 Nomi Beyer ECG 12-LEAD 2019-06-27 23:46:21 Nomi Beyer TROPONIN 2019-06-27 23:18:00 Omar Rodríguez [facility] HC COMPLETE BLD COUNT W/AUTO DIFF 2019-06-27 21:40:00 Ese Rodríguez COMPREHENSIVE METABOLIC PANEL 2019-06-27 21:40:00 Omar Rodríguez TROPONIN 2019-06-27 21:40:00 Omar Rodríguez [facility] B NATRIURETIC PEPTIDE 2019-06-27 21:40:00 Omar Rodríguez ESTIMATED GFR 2019-06-27 21:40:00 Omar Rodríguez [facility] XR CHEST 1 VW PORTABLE 2019-06-27 21:23:49 Mike Beyer ECG ED PRELIMINARY INTERPRETATION 2019-06-27 20:57:35 Nomi Beyer ECG 12-LEAD 2019-06-27 20:35:37 Omar Rodríguez [facility] POC GLUCOSE 2019-06-20 11:26:00 Porfirio Finney [facility] HEMODIALYSIS 2019-06-20 07:10:29 Andre Arreola ethodist POC GLUCOSE 2019-06-20 06:13:00 Porfirio Finney [employer] POC GLUCOSE 2019-06-19 20:57:00 Porfirio Finney [employer] POC GLUCOSE 2019-06-19 15:54:00 Porfirio Finney [employer] POC GLUCOSE 2019-06-19 11:45:00 Porfirio Finney [employer] POC GLUCOSE 2019-06-19 06:21:00 Porfirio Finney [facility] HC COMPLETE BLD COUNT W/AUTO DIFF 2019-06-19 06:02:00 Jasmina Raza [employer] BASIC METABOLIC PANEL 2019-06-19 06:02:00 Delores Raza [employer] ESTIMATED GFR 2019-06-19 06:02:00 Delores Raza Meth odist POC GLUCOSE 2019-06-18 20:40:00 Porfirio Finney [employer] POC GLUCOSE 2019-06-18 16:04:00 Porfirio Finney [facility] POC GLUCOSE 2019-06-18 11:13:00 Porfirio Finney [employer] POC GLUCOSE 2019-06-18 06:24:00 Abner Paula [employer] POC GLUCOSE 2019-06-17 20:48:00 Abner Paula [employer] POC GLUCOSE 2019-06-17 16:11:00 Abner Paula [facility] POC GLUCOSE 2019-06-17 11:17:00 Abner Paula [facility] HEMODIALYSIS 2019-06-17 08:03:52 Daniel Chu Meth odist POC GLUCOSE 2019-06-17 06:05:00 Abner Paula [facility] BASIC METABOLIC PANEL 2019-06-17 05:26:00 Dee Miller [facility] ESTIMATED GFR 2019-06-17 05:26:00 Dee Miller Meth odist POC GLUCOSE 2019-06-16 20:15:00 Abner Paula [facility] POC GLUCOSE 2019-06-16 16:34:00 Abner Paula [facility] POC GLUCOSE 2019-06-16 11:33:00 Abner Paula [facility] POC GLUCOSE 2019-06-16 06:17:00 Ekta Wong [facility] MAGNESIUM LEVEL 2019-06-16 05:25:00 Ekta Wong [facility] RENAL FUNCTION PANEL 2019-06-16 05:25:00 Ekta Wong [facility] ESTIMATED GFR 2019-06-16 05:25:00 Dee Miller Meth odist POC GLUCOSE 2019-06-15 20:25:00 Ekta Wong [facility] POC GLUCOSE 2019-06-15 16:00:00 Ekta Wong [facility] POC GLUCOSE 2019-06-15 10:52:00 Ekta Wong [facility] HEMODIALYSIS 2019-06-15 09:30:56 Nikia Saini [facility] POC GLUCOSE 2019-06-15 06:43:00 Ekta Wong [facility] BASIC METABOLIC PANEL 2019-06-15 04:44:00 Dee Miller n [facility] HC COMPLETE BLD COUNT W/AUTO DIFF 2019-06-15 04:44:00 Ramon Miller [facility] ESTIMATED GFR 2019-06-15 04:44:00 Dee Miller Meth odist POC GLUCOSE 2019-06-15 02:52:00 Ekta Wong [facility] POTASSIUM LEVEL 2019-06-15 02:27:00 Danna Naranjo on [facility] POC GLUCOSE 2019-06-14 23:57:00 Ekta Wong [facility] POC GLUCOSE 2019-06-14 20:48:00 Ekta Wong [facility] ECG 12-LEAD 2019-06-14 20:14:13 Dee Miller Meth odist POTASSIUM LEVEL 2019-06-14 18:40:00 Ekta Wong [facility] POC GLUCOSE 2019-06-14 16:07:00 Ekta Wong [facility] POTASSIUM LEVEL 2019-06-14 11:24:00 Ekta Wong [facility] POC GLUCOSE 2019-06-14 11:15:00 Ekta Wong [facility] POC GLUCOSE 2019-06-14 06:24:00 Ekta Wong [facility] HC COMPLETE BLD COUNT W/AUTO DIFF 2019-06-14 05:48:00 Ekta Daly [facility] RENAL FUNCTION PANEL 2019-06-14 05:48:00 Ekta Wong [facility] MAGNESIUM LEVEL 2019-06-14 05:48:00 Ekta Wong [facility] ESTIMATED GFR 2019-06-14 05:48:00 Ekta Wong [facility] POC GLUCOSE 2019-06-13 20:21:00 Ekta Wong [facility] POC GLUCOSE 2019-06-13 16:53:00 Ekta Wong [facility] POC GLUCOSE 2019-06-13 11:39:00 Ekta Wong [facility] POC GLUCOSE 2019-06-13 06:15:00 Ekta Wong [facility] HC COMPLETE BLD COUNT W/AUTO DIFF 2019-06-13 05:27:00 Ekta Daly [facility] MAGNESIUM LEVEL 2019-06-13 05:27:00 Ekta Wong [facility] RENAL FUNCTION PANEL 2019-06-13 05:27:00 Ekta Wong [facility] ESTIMATED GFR 2019-06-13 05:27:00 Ekta Wong [facility] POC GLUCOSE 2019-06-12 20:43:00 Ekta Wong [facility] POC GLUCOSE 2019-06-12 15:58:00 Ekta Wong [facility] POC GLUCOSE 2019-06-12 10:53:00 Ekta Wong [facility] POC GLUCOSE 2019-06-12 06:27:00 Ekta Wong [facility] HC COMPLETE BLD COUNT W/AUTO DIFF 2019-06-12 04:35:00 Ekta Daly [facility] MAGNESIUM LEVEL 2019-06-12 04:35:00 Ekta Wong [facility] RENAL FUNCTION PANEL 2019-06-12 04:35:00 Ekta Wong [facility] ESTIMATED GFR 2019-06-12 04:35:00 Ekta Wong [facility] POC GLUCOSE 2019-06-11 20:05:00 Ekta Wong [facility] POC GLUCOSE 2019-06-11 16:57:00 Ekta Wong [facility] POC GLUCOSE 2019-06-11 12:20:00 Ekta Wong MRI BRAIN WO CONTRAST 2019-06-11 12:02:12 Nitin Smith [facility] CBC WITH PLATELET AND DIFFERENTIAL 2019-06-11 07:44:00 Ekta Dougherty [facility] RENAL FUNCTION PANEL 2019-06-11 07:44:00 Ekta Wong [facility] MAGNESIUM LEVEL 2019-06-11 07:44:00 Ekta Wong [facility] ESTIMATED GFR 2019-06-11 07:44:00 Ekta Wong [facility] MANUAL DIFFERENTIAL 2019-06-11 07:44:00 Ekta Wong [facility] POC GLUCOSE 2019-06-11 06:20:00 Ekta Wong POC GLUCOSE 2019-06-10 20:52:00 Ekta Wong POC GLUCOSE 2019-06-10 16:03:00 Ekta Wong PARTIAL THROMBOPLASTIN TIME (PTT) 2019-06-10 15:56:00 Chris Ca rlshivam Sheppard ANTI XA, UNFRACTIONATED 2019-06-10 15:56:00 Pratibha Perez [place] [facility] HEPATITIS B SURFACE ANTIGEN 2019-06-10 15:56:00 Jose A Dannavimal Sheppard PROTHROMBIN TIME WITH INR 2019-06-10 15:56:[address] ANGIOGRAM NECK W WO CONTRAST 2019-06-10 14:50:44 Dayron Perez TROPONIN 2019-06-10 14:50:00 Pratibha Perez ethodist HC COMPLETE BLD COUNT W/AUTO DIFF 2019-06-10 14:50:00 Sahara Perez BASIC METABOLIC PANEL 2019-06-10 14:50:00 Pratibha Perez Shelbie ston [facility] ESTIMATED GFR 2019-06-10 14:50:[address] ANGIOGRAM HEAD W WO CONTRAST 2019-06-10 14:49:[address] STROKE BRAIN WO CONTRAST 2019-06-10 14:16:17 Pratibha Perez POC GLUCOSE 2019-06-10 14:02:00 Ekta Wong ECG 12-LEAD 2019-06-10 13:52:52 Pratibha Perez M ethodist POC GLUCOSE 2019-06-10 10:57:00 Ekta Wong URINE CULTURE 2019-06-10 10:52:00 Dee Miller Meth odist GRAM STAIN 2019-06-10 10:52:00 Dee Miller Meth odalisha URINALYSIS SCREEN AND MICROSCOPY, WITH REFLEX TO CULTURE 201 03-02-21 09:59:00 Dee bowen Brennan [facility] POC GLUCOSE 2019-06-10 06:07:00 Porfirio Finney [facility] POC GLUCOSE 2019-06-09 20:38:00 Porfirio Finney [facility] POC GLUCOSE 2019-06-09 16:35:00 Porfirio Finney [facility] RESPIRATORY PATHOGEN PANEL 2019-06-09 14:23:00 Vanessa Valentina heena Donaldrobo [facility] INFLUENZA ANTIGEN 2019-06-09 14:23:00 Estrada Mendez Donaldro wyatt [facility] POC GLUCOSE 2019-06-09 11:31:00 Porfirio Finney [facility] TROPONIN 2019-06-09 10:11:00 Rajinder Watts Met hodist POC GLUCOSE 2019-06-09 06:16:00 Porfirio Finney [facility] TROPONIN 2019-06-09 04:45:00 Rajinder Watts Met hodist HC COMPLETE BLD COUNT W/AUTO DIFF 2019-06-09 04:45:00 andrés Ramon fuadsuyapa Amin [facility] BASIC METABOLIC PANEL 2019-06-09 04:45:00 Ramon Millerozsuyapa Larson n [facility] ESTIMATED GFR 2019-06-09 04:45:00 Ramon Millerozsuyapa Amin Meth odist HC COMPLETE BLD COUNT W/AUTO DIFF 2019-06-08 22:17:00 Brett Watts [facility] COMPREHENSIVE METABOLIC PANEL 2019-06-08 22:17:00 Kenzie Watts [facility] TROPONIN 2019-06-08 22:17:00 Rajinder Watts Met hodist B NATRIURETIC PEPTIDE 2019-06-08 22:17:00 Rajinder Watts on [facility] ESTIMATED GFR 2019-06-08 22:17:00 Rajinder Watts Met hodist XR CHEST 1 VW 2019-06-08 22:16:50 Rajinder Watts Met hodist ECG 12-LEAD 2019-06-08 20:38:06 Rajinder Watts Met hodist XR CHEST 2 VW 2019-06-07 16:55:05 Rajinder Watts Met hodist HC COMPLETE BLD COUNT W/AUTO DIFF 2019-06-07 15:46:00 Brett Watts [facility] COMPREHENSIVE METABOLIC PANEL 2019-06-07 15:46:00 NirajKenzie roque [facility] TROPONIN 2019-06-07 15:46:00 Rajinder Watts Met hodist B NATRIURETIC PEPTIDE 2019-06-07 15:46:00 Rajinder Watts on [facility] ESTIMATED GFR 2019-06-07 15:46:00 Rajinder Watts Met hodist ECG ED PRELIMINARY INTERPRETATION 2019-06-07 15:33:56 Brett Watts Amin [employer] ECG 12-LEAD 2019-06-07 15:30:25 NirajmandyRajinder ya Met [facility] POC GLUCOSE 2019-06-03 16:38:00 Abner Paula [employer] HEPATITIS B SURFACE ANTIGEN 2019-06-03 13:52:00 Tita Shannon [employer] HEMODIALYSIS 2019-06-03 11:47:36 Tita Shannon [employer] POC GLUCOSE 2019-06-03 11:16:00 Abner Paula [employer] POC GLUCOSE 2019-06-03 06:25:00 Abner Paula [employer] POC GLUCOSE 2019-06-02 21:00:00 Abner Paula [employer] POC GLUCOSE 2019-06-02 16:13:00 Abner Paula [employer] POC GLUCOSE 2019-06-02 10:48:00 Abner Paula [employer] HC COMPLETE BLD COUNT W/AUTO DIFF 2019-06-02 07:56:00 Ramon Miller [employer] PROTHROMBIN TIME WITH INR 2019-06-02 07:56:00 Dee Miller [employer] BASIC METABOLIC PANEL 2019-06-02 07:56:00 Dee Miller B NATRIURETIC PEPTIDE 2019-06-02 07:56:00 Dee Miller [employer] ESTIMATED GFR 2019-06-02 07:56:00 Dee Miller Meth odist TROPONIN, I-STAT 2019-06-02 07:56:00 Foster Nye POC GLUCOSE 2019-06-02 06:24:00 Enzo Canas Meth odalisha URINE CULTURE 2019-06-01 21:23:00 Foster Nye GRAM STAIN 2019-06-01 21:23:00 Foster Nye XR CHEST 1 VW 2019-06-01 21:13:21 Foster Nye URINALYSIS SCREEN AND MICROSCOPY, WITH REFLEX TO CULTURE 201 03-02-12 20:43:00 Foster Nye ECG ED PRELIMINARY INTERPRETATION 2019-06-01 20:14:39 Alfonso Nye HC COMPLETE BLD COUNT W/AUTO DIFF 2019-06-01 20:00:00 Alfonso Nye PROTHROMBIN TIME WITH INR 2019-06-01 20:00:00 Foster Nye PARTIAL THROMBOPLASTIN TIME (PTT) 2019-06-01 20:00:00 Alfonso Nye COMPREHENSIVE METABOLIC PANEL 2019-06-01 20:00:00 Foster Nye TROPONIN 2019-06-01 20:00:00 Foster Nye B NATRIURETIC PEPTIDE 2019-06-01 20:00:00 Foster Nye ESTIMATED GFR 2019-06-01 20:00:00 Foster Nye ECG 12-LEAD 2019-06-01 19:25:55 Foster Nye POC GLUCOSE 2019-04-26 12:28:00 Abner Paula POC GLUCOSE 2019-04-26 11:06:00 Abner Paula POC GLUCOSE 2019-04-26 06:00:00 Abner Paula HEPATITIS B SURFACE ANTIGEN 2019-04-25 22:47:00 Candido Saini POC GLUCOSE 2019-04-25 21:32:00 Abner Paula POC GLUCOSE 2019-04-25 20:28:00 Abner Paula Amejronimo Sheppard POC GLUCOSE 2019-04-25 17:11:00 Abner Paula Amjeronimo Amin [employer] POC GLUCOSE 2019-04-25 12:46:00 Abner Paula Amjeronimo Amin [employer] HEMODIALYSIS 2019-04-25 09:18:25 Nikia Saini HEPATITIS B SURFACE ANTIGEN 2019-04-25 08:18:00 Candido Saini POC GLUCOSE 2019-04-25 06:35:00 Abner Paula Amjeronimo Sheppard POC GLUCOSE 2019-04-24 20:08:00 Abner Paula Amjeronimo Sheppard URINE CULTURE 2019-04-24 15:02:00 Foster Nye GRAM STAIN 2019-04-24 15:02:00 Foster Nye URINALYSIS SCREEN AND MICROSCOPY, WITH REFLEX TO CULTURE 201 03-01-04 14:16:00 Foster Nye POC GLUCOSE 2019-04-24 11:01:00 NisaItzelleannashivam Crabtreejeronimo Sheppard POC GLUCOSE 2019-04-24 06:11:00 NisaAbner Mark Sheppard TROPONIN 2019-04-24 01:43:00 Foster Nye LACTIC ACID LEVEL, SEPSIS - NOW AND REPEAT 2X EVERY 3 HOURS 2019-04-24 01:43:00 Foster Nye POC GLUCOSE 2019-04-23 21:25:00 Margaret Paulashivam Mark Sheppard CT HEAD WO CONTRAST 2019-04-23 19:27:17 Foster Nye HC COMPLETE BLD COUNT W/AUTO DIFF 2019-04-23 18:38:00 Alfonso Nye PROTHROMBIN TIME WITH INR 2019-04-23 18:38:00 Foster Nye PARTIAL THROMBOPLASTIN TIME (PTT) 2019-04-23 18:38:00 Alfonso Nye COMPREHENSIVE METABOLIC PANEL 2019-04-23 18:38:00 Foster Nye TROPONIN 2019-04-23 18:38:00 Foster Nye B NATRIURETIC PEPTIDE 2019-04-23 18:38:00 Foster Nye CREATINE KINASE, TOTAL (CPK) 2019-04-23 18:38:00 Foster Nye LIPASE LEVEL 2019-04-23 18:38:00 Foster Nye LACTIC ACID LEVEL, SEPSIS - NOW AND REPEAT 2X EVERY 3 HOURS 2019-04-23 18:38:00 Foster Nye ALCOHOL LEVEL, BLOOD 2019-04-23 18:38:00 Foster Nye ston [employer] ESTIMATED GFR 2019-04-23 18:38:00 Foster Nye ECG ED PRELIMINARY INTERPRETATION 2019-04-23 18:29:37 Alfonso Nye ECG 12-LEAD 2019-04-23 18:23:41 Foster Nye POC GLUCOSE 2019-04-21 15:59:00 Porfirio Finney [employer] POC GLUCOSE 2019-04-21 11:14:00 Porfirio Finney [facility] POC GLUCOSE 2019-04-21 06:23:00 Abner Paula [facility] POC GLUCOSE 2019-04-20 20:25:00 Abner Paula [facility] POC GLUCOSE 2019-04-20 16:47:00 Abner Paula [facility] POC GLUCOSE 2019-04-20 13:53:00 Ekta Wong [employer] HEMODIALYSIS 2019-04-20 09:23:36 Nikia Saini [employer] POC GLUCOSE 2019-04-20 06:14:00 Ekta Wong [employer] POC GLUCOSE 2019-04-19 21:06:00 Ekta Wong [facility] POC GLUCOSE 2019-04-19 16:14:00 Ekta Wong [facility] POC GLUCOSE 2019-04-19 14:30:00 Ekta Wongm Brett.Favio Amin [employer] POC GLUCOSE 2019-04-19 12:34:00 Ekta Wongeim E.S Brennan [facility] POC GLUCOSE 2019-04-19 06:32:00 Porfirio Finney [employer] POC GLUCOSE 2019-04-18 21:10:00 Porfirio Finney [employer] POC GLUCOSE 2019-04-18 16:45:00 Porfirio Finney [facility] POC GLUCOSE 2019-04-18 12:48:00 Porfirio Finney [facility] HEMODIALYSIS 2019-04-18 08:44:54 Nikia Saini [facility] POC GLUCOSE 2019-04-18 06:21:00 Porfirio Finney [facility] POC GLUCOSE 2019-04-17 20:34:00 Porfirio Finney [employer] POC GLUCOSE 2019-04-17 16:12:00 Ekta Wongm Brett.S [facility] POC GLUCOSE 2019-04-17 11:33:00 Ekta Wongm Brett.Favio Amin [facility] HC COMPLETE BLD COUNT W/AUTO DIFF 2019-04-17 09:47:00 Mandy Brewster Amin [employer] BASIC METABOLIC PANEL 2019-04-17 09:47:00 Mandy Villegas ESTIMATED GFR 2019-04-17 09:47:00 Mandy Villegas [facility] POC GLUCOSE 2019-04-17 06:54:00 Ekta Wongm Brett.Favio Amin [facility] POC GLUCOSE 2019-04-16 20:45:00 Ekta Wongm E.S Amin [facility] POC GLUCOSE 2019-04-16 15:40:00 Ekta Wongm Brett.S Brennan [employer] POC GLUCOSE 2019-04-16 11:11:00 Ekta Wongm E.S Brennan [facility] POC GLUCOSE 2019-04-16 06:17:00 Porfirio Finney [employer] RENAL FUNCTION PANEL 2019-04-16 05:41:00 Ekta Wong.S Amin [facility] MAGNESIUM LEVEL 2019-04-16 05:41:00 Ekta Wong Rodolfo Amin [employer] ESTIMATED GFR 2019-04-16 05:41:00 Ekta Wong Rodolfo FloresFavio Brennan [employer] LIPID PANEL 2019-04-16 05:41:00 Kolby Wongsuyapa Amin [employer] POC GLUCOSE 2019-04-15 21:24:00 Porfirio Finney [employer] POC GLUCOSE 2019-04-15 16:07:00 Porfirio Finney [employer] TTE COMPLETE, WO CONTRAST, W DOPPLER ([id number]) 2019-04-15 14:5 4:50 Mike Figueroa [facility] POC GLUCOSE 2019-04-15 10:49:00 Porfirio Finney [employer] HEPATITIS B SURFACE ANTIGEN 2019-04-15 09:00:00 Dnaiel Chu [employer] POC GLUCOSE 2019-04-15 06:51:00 Porfirio Finney [employer] HC COMPLETE BLD COUNT W/AUTO DIFF 2019-04-15 06:37:00 Virgen Figueroa Amin [employer] COMPREHENSIVE METABOLIC PANEL 2019-04-15 06:37:00 Mike Figueroa ESTIMATED GFR 2019-04-15 06:37:00 Deshaun Figueroa [facility] TROPONIN 2019-04-15 03:52:00 Deshaun Figueroa [facility] TROPONIN 2019-04-15 00:11:00 Deshaun Figueroa [facility] ECG 12-LEAD 2019-04-14 23:58:54 Deshaun Figueroa [facility] POC GLUCOSE 2019-04-14 20:25:00 Porfirio Finney [employer] TROPONIN 2019-04-14 17:42:00 Deshaun Figueroa [facility] XR CHEST 2 VW 2019-04-14 17:07:25 Deshaun Figueroa [facility] HC COMPLETE BLD COUNT W/AUTO DIFF 2019-04-14 16:00:00 Virgen Figueroa COMPREHENSIVE METABOLIC PANEL 2019-04-14 16:00:00 Mike Figueroa [employer] TROPONIN 2019-04-14 16:00:00 Deshaun Figueroa Jennifer robin Sheppard B NATRIURETIC PEPTIDE 2019-04-14 16:00:00 Deshaun Figueroa o Brennan Sheppard ESTIMATED GFR 2019-04-14 16:00:00 Deshaun Figueroa Jennifer kelly [facility] ECG ED PRELIMINARY INTERPRETATION 2019-04-14 15:31:23 Virgen Figueroa ECG 12-LEAD 2019-04-14 14:48:23 Deshaun Figueroa Jennifer kelly [employer] POC GLUCOSE 2019-04-14 14:43:00 Provider, [facility] thodist POC GLUCOSE 2019-04-12 15:58:00 Jessica Dangelo [facility] POC GLUCOSE 2019-04-12 10:57:00 Jessica Dangelo [facility] POC GLUCOSE 2019-04-12 06:31:00 Jessica [facility] odist POC GLUCOSE 2019-04-11 20:39:00 Jessica Dangelo [facility] POC GLUCOSE 2019-04-11 16:04:00 Jessica [facility] odist POC GLUCOSE 2019-04-11 11:00:00 Jessica [facility] Meth odist POC GLUCOSE 2019-04-11 06:44:00 Jessica Dangelo [facility] POC GLUCOSE 2019-04-10 20:47:00 Jessica [facility] Meth odist POC GLUCOSE 2019-04-10 17:15:00 Jessica Dangelo [facility] XR CHEST 2 VW 2019-04-10 16:45:02 Jessica Dangelo [facility] BASIC METABOLIC PANEL 2019-04-10 09:10:00 Nikia Saini [facility] HEMOGRAM 2019-04-10 09:10:00 Nikia Saini ESTIMATED GFR 2019-04-10 09:10:00 Nikia Saini POC GLUCOSE 2019-04-10 06:14:00 Dangelo Lopez Meth odist POC GLUCOSE 2019-04-09 21:24:00 Dangelo Lopez Meth odist POC GLUCOSE 2019-04-09 15:58:00 Dangelo Lopez Meth odist POC GLUCOSE 2019-04-09 10:56:00 Dangelo Lopez Meth odist POC GLUCOSE 2019-04-09 06:15:00 JoglEnzo monzon Meth odist POC GLUCOSE 2019-04-08 20:40:00 JoglekEnzo robbins Meth odist POC GLUCOSE 2019-04-08 15:59:00 JoglekEnzo robbins Meth odist POC GLUCOSE 2019-04-08 11:03:00 AdriglEnzo monzon Meth odist POC GLUCOSE 2019-04-08 06:27:00 AdriglEnzo monzon Meth odist POC GLUCOSE 2019-04-07 20:44:00 JomarlenyitzelEnzo Meth odist POC GLUCOSE 2019-04-07 16:20:00 AdriEnzo islas Meth odist POC GLUCOSE 2019-04-07 12:35:00 JoglEnzo monzon Meth odist HEMODIALYSIS 2019-04-07 08:00:38 Tita Shannon HerbertGavi Amin [employer] POC GLUCOSE 2019-04-07 06:32:00 AdriglEnzo monzon Meth odist POC GLUCOSE 2019-04-06 21:09:00 AdriEnzo islas Meth odist POC GLUCOSE 2019-04-06 16:11:00 AdrimarlenyitzelEnzo Meth odist POC GLUCOSE 2019-04-06 14:05:00 JogllouannitzelEnzo Meth odist DC AN PERIPHERAL BLOCK PROCEDURE FOR PAIN 2019-04-06 10:59:4 3 Alexander Farr Amin [employer] POC GLUCOSE 2019-04-06 10:17:00 JoglekitzelEnzo Meth odist POC GLUCOSE 2019-04-06 06:54:00 JoroshanEnzo Meth odist BASIC METABOLIC PANEL 2019-04-06 05:49:00 David Dodge HC COMPLETE BLD COUNT W/AUTO DIFF 2019-04-06 05:49:00 Irma Dodge PROTHROMBIN TIME WITH INR 2019-04-06 05:49:00 David Dodge PARTIAL THROMBOPLASTIN TIME (PTT) 2019-04-06 05:49:00 Irma Dodge HEMOGLOBIN A1C 2019-04-06 05:49:00 Dangelo Lopez Meth odist ESTIMATED GFR 2019-04-06 05:49:00 JoglekitzelEnzo Meth odist POC GLUCOSE 2019-04-05 20:22:00 JoglekarEnzo Meth odist POC GLUCOSE 2019-04-05 16:22:00 JoglekitzelEnzo Meth odist HEMODIALYSIS 2019-04-05 09:30:46 David Dodge Meth odist POC GLUCOSE 2019-04-05 06:31:00 JoglekitzelEnzo Meth odist POC GLUCOSE 2019-04-04 20:35:00 AdriglekitzelEnzo Meth odist POC GLUCOSE 2019-04-04 16:04:00 AdriglekitzelEnzo Meth odist POC GLUCOSE 2019-04-04 10:52:00 JoglekarEnzo Meth odist POC GLUCOSE 2019-04-04 08:46:00 MissaelEnzo Meth odist HC COMPLETE BLD COUNT W/AUTO DIFF 2019-04-04 06:20:00 Chas Donnelly BASIC METABOLIC PANEL 2019-04-04 06:20:00 Won Donnelly TYPE AND SCREEN 2019-04-04 06:20:00 David Dodge PROTHROMBIN TIME WITH INR 2019-04-04 06:20:00 David Dodge PARTIAL THROMBOPLASTIN TIME (PTT) 2019-04-04 06:20:00 Irma Dodge ESTIMATED GFR 2019-04-04 06:20:00 Won Donnelly IR TUNNELED DIALYSIS CATHETER PLACEMENT 2019-04-03 20:13:25 Tita Lamb US GUIDED VASCULAR ACCESS 2019-04-03 20:13:25 Tita Shannon HEMODIALYSIS 2019-04-03 19:07:36 Tita Shannon [employer] POC GLUCOSE 2019-04-03 16:32:00 Felicia Canasati Brennan Meth odist PROTHROMBIN TIME WITH INR 2019-04-03 13:04:00 Shon Rodriguez [employer] PARTIAL THROMBOPLASTIN TIME (PTT) 2019-04-03 13:04:00 MichaelNatacha Brennan Sheppard US DUPLEX LIMITED LEFT 2019-04-03 12:44:34 David Dodge on [facility] POC GLUCOSE 2019-04-03 11:00:00 Felicia Canasati Brennan Meth odist TTE COMPLETE, WO CONTRAST, W DOPPLER ([id number]) 2019-04-03 09:10:15 David Dodge HEPATITIS B SURFACE ANTIGEN 2019-04-03 08:03:00 Tita Shannon PHOSPHORUS LEVEL 2019-04-03 06:33:00 Danny Gray Met hodist POC GLUCOSE 2019-04-03 06:01:00 Enzo Canas Meth odist POC GLUCOSE 2019-04-02 20:59:00 Enzo Canas Meth odist POC GLUCOSE 2019-04-02 16:20:00 Enzo Canas Meth odist URINALYSIS SCREEN AND MICROSCOPY, WITH REFLEX TO CULTURE 201 02-28-13 15:14:00 Kristian Stinson BASIC METABOLIC PANEL 2019-04-02 14:19:00 Danny Gray n [facility] THYROID STIMULATING HORMONE 2019-04-02 14:19:00 Danny Gray ESTIMATED GFR 2019-04-02 14:19:00 Danny Gray Meth odist POC GLUCOSE 2019-04-02 13:25:00 Enzo Canas Meth odist TROPONIN 2019-04-02 11:35:00 Amando Granados on [facility] TROPONIN 2019-04-02 05:58:00 Amando Granados on [facility] POC GLUCOSE 2019-04-02 04:50:00 Hermilo Valenzuela [facility] MRI BRAIN WO CONTRAST 2019-04-02 01:17:[address] HEAD WO CONTRAST 2019-04-01 23:45:26 Amando Granadosston [employer] AMMONIA LEVEL 2019-04-01 22:36:00 Amando Granados on [employer] ALCOHOL LEVEL, BLOOD 2019-04-01 22:36:00 Amando Granados XR CHEST 1 VW PORTABLE 2019-04-01 22:11:45 Kristian Stinson [employer] ECG ED PRELIMINARY INTERPRETATION 2019-04-01 21:56:54 Amando Granados B NATRIURETIC PEPTIDE 2019-04-01 21:54:00 Kristian Stinson HC COMPLETE BLD COUNT W/AUTO DIFF 2019-04-01 21:54:00 Adri Stinson se COMPREHENSIVE METABOLIC PANEL 2019-04-01 21:54:00 Kristian Stinsonist TROPONIN 2019-04-01 21:54:00 Kristian Stinson on [facility] ESTIMATED GFR 2019-04-01 21:54:00 Kristian Stinson on [facility] ECG 12-LEAD 2019-04-01 21:41:20 Kristian Stinson on [facility] XR LUMBAR SPINE 2 OR 3 VW 2019-02-21 15:54:16 Kristian Stinson [employer] HC COMPLETE BLD COUNT W/AUTO DIFF 2019-02-21 14:11:00 Letty Schwartz COMPREHENSIVE METABOLIC PANEL 2019-02-21 14:11:00 Blanca Schwartz [employer] ESTIMATED GFR 2019-02-21 14:11:00 Letty Schwartz [employer] POC GLUCOSE 2019-02-12 10:30:00 Chaparro Stinson [employer] POC GLUCOSE 2019-02-12 06:10:00 Chaparro Stinson [employer] HC COMPLETE BLD COUNT W/AUTO DIFF 2019-02-12 04:31:00 Chaparro Hansenamed A [facility] COMPREHENSIVE METABOLIC PANEL 2019-02-12 04:31:00 Abouelseou dPaulaseana Mcdonaldad Mekaamed A Amin [employer] ESTIMATED GFR 2019-02-12 04:31:00 AbouelseoudPaulaseana Mcdonaldad M ohamed A [facility] POC GLUCOSE 2019-02-11 22:28:00 AbouelseoudPaulaseana Mcdonaldad M ohamed A [facility] POC GLUCOSE 2019-02-11 16:43:00 AbouelseoudPaulaseem Hamad M ohamed A [facility] POC GLUCOSE 2019-02-11 14:02:00 AbouelseoudPaulaseem Harryad M ohamed A [facility] HEMODIALYSIS 2019-02-11 09:23:51 Tita Shannon [facility] HC COMPLETE BLD COUNT W/AUTO DIFF 2019-02-11 06:45:00 Irma Dodge [facility] COMPREHENSIVE METABOLIC PANEL 2019-02-11 06:45:00 David Dodge [employer] ESTIMATED GFR 2019-02-11 06:45:00 AbouelseoudPaulaseana Mcdonaldad M ohamed A [facility] POC GLUCOSE 2019-02-11 05:59:00 AbouelseoudPaulaseem Harryad M ohamed A [facility] POC GLUCOSE 2019-02-10 20:14:00 Abouelseoud Tanseem Hamad M ohamed A [facility] POC GLUCOSE 2019-02-10 15:37:00 AbouelseoudPaulaseem Harryad M ohamed A [facility] POC GLUCOSE 2019-02-10 14:12:00 Abouelseoud Tanseem Hamad M ohamed A [facility] POC GLUCOSE 2019-02-10 10:42:00 Abouelseoud, Tanseem Hamad M ohamed A [facility] HC COMPLETE BLD COUNT W/AUTO DIFF 2019-02-10 07:03:00 Irma Dodge [facility] BASIC METABOLIC PANEL 2019-02-10 07:03:00 David Dodge n [facility] TYPE AND SCREEN 2019-02-10 07:03:00 David Dodge Meth odist PARTIAL THROMBOPLASTIN TIME (PTT) 2019-02-10 07:03:00 Irma Dodge [employer] PROTHROMBIN TIME WITH INR 2019-02-10 07:03:00 David Dodge ton [facility] ESTIMATED GFR 2019-02-10 07:03:00 Chaparro Stinsonglen Langley Brennan [employer] POC GLUCOSE 2019-02-10 05:15:00 Chaparro Stinson [employer] POC GLUCOSE 2019-02-09 21:06:00 Chaparro Stinson [employer] US DUPLEX LIMITED LEFT 2019-02-09 17:48:07 David Dodge on [facility] POC GLUCOSE 2019-02-09 16:41:[address] [facility] [address] ANGIOGRAM PE CHEST 2019-02-09 12:52:27 Chaparro Stinson [facility] POC GLUCOSE 2019-02-09 12:51:00 Chaparro Stinson [facility] HC COMPLETE BLD COUNT W/AUTO DIFF 2019-02-09 05:51:00 Chas Donnelly BASIC METABOLIC PANEL 2019-02-09 05:51:00 Won Donnelly ESTIMATED GFR 2019-02-09 05:51:00 Won Donnelly [facility] POC GLUCOSE 2019-02-09 05:49:00 Dangelo Lopez Meth odist POC GLUCOSE 2019-02-08 20:08:00 Dangelo Lopez Meth odist HEMODIALYSIS 2019-02-08 19:30:06 Tita Shannon [facility] TROPONIN 2019-02-08 16:45:00 Won Donnelly [employer] POC GLUCOSE 2019-02-08 16:18:00 Dangelo Lopez Meth odist TROPONIN 2019-02-08 11:54:00 Won Donnelly [employer] HEPATITIS B SURFACE ANTIGEN 2019-02-08 11:54:00 Tita Shannon [employer] POC GLUCOSE 2019-02-08 09:58:00 Dangelo Lopez Meth odist ECG 12-LEAD 2019-02-08 08:27:04 Dangelo Lopez Meth odist TROPONIN 2019-02-08 07:05:00 Omar Rodríguez [facility] TROPONIN, I-STAT 2019-02-08 02:28:00 Omar Rodríguez [facility] HC COMPLETE BLD COUNT W/AUTO DIFF 2019-02-08 01:26:00 Ese Rodríguez COMPREHENSIVE METABOLIC PANEL 2019-02-08 01:26:00 Omar Rodríguez ESTIMATED GFR 2019-02-08 01:26:00 Omar Rodríguez B NATRIURETIC PEPTIDE 2019-02-08 01:26:00 Omar Rodríguez TROPONIN, I-STAT 2019-02-08 01:26:00 Omar Rodríguez XR CHEST 1 VW PORTABLE 2019-02-08 00:53:41 Omar Rodríguez INFLUENZA ANTIGEN TEST, REFLEX NEGATIVE TO RPP 2019-02-08 00 :48:00 Omar Rodríguez RESPIRATORY PATHOGEN PANEL 2019-02-08 00:48:00 Omar Rodríguez ECG ED PRELIMINARY INTERPRETATION 2019-02-08 00:42:58 Ese Rodríguez ECG 12-LEAD 2019-02-07 23:50:49 Omar Rodríguez [facility] POC GLUCOSE 2019-02-04 16:15:00 Abner Paula [employer] POC GLUCOSE 2019-02-04 11:06:00 Abner Paula BASIC METABOLIC PANEL 2019-02-04 06:21:00 Jonathan Crouch HC COMPLETE BLD COUNT W/AUTO DIFF 2019-02-04 06:21:00 Brett Crouch ESTIMATED GFR 2019-02-04 06:21:00 Jonathan Crouch [facility] POC GLUCOSE 2019-02-04 06:18:00 Abner Paula [facility] POC GLUCOSE 2019-02-03 20:53:00 Abner Paula [facility] POC GLUCOSE 2019-02-03 17:06:00 Abner Paula [facility] CV LEFT HEART CATH 2019-02-03 15:28:49 Thaddeus Elizabeth n [facility] CV PCI PERCUTANEOUS CARDIAC ANGIOPLASTY 2019-02-03 15:28:49 Thaddeus Morataya [facility] ACTIVATED CLOTTING TIME 2019-02-03 14:56:00 Abner Paula [facility] ACTIVATED CLOTTING TIME 2019-02-03 14:22:00 Abner Paula [facility] POC GLUCOSE 2019-02-03 10:46:00 Abner Paula [facility] POC GLUCOSE 2019-02-03 06:46:00 Enzo Canas Meth odist HC COMPLETE BLD COUNT W/AUTO DIFF 2019-02-03 06:10:00 Brett Crouch [facility] BASIC METABOLIC PANEL 2019-02-03 06:10:00 Jonathan Crouch [facility] ESTIMATED GFR 2019-02-03 06:10:00 Jonathan Crouch on [facility] POC GLUCOSE 2019-02-02 20:37:00 Enzo Canas Meth odist POC GLUCOSE 2019-02-02 17:53:00 Enzo Canas Meth odist POC GLUCOSE 2019-02-02 11:27:00 Enzo Canas Meth odist POC GLUCOSE 2019-02-02 06:03:00 Chaparro Stinson [facility] POC GLUCOSE 2019-02-01 21:24:00 Chaparro Stinson [facility] POC GLUCOSE 2019-02-01 17:48:00 Chaparro Stinson [facility] CV LEFT HEART CATH 2019-02-01 15:43:00 Thaddeus Elizabeth n [facility] POC GLUCOSE 2019-02-01 11:29:00 Chaparro Stinson M ohamed A [facility] POC GLUCOSE 2019-02-01 06:50:00 LenyEnzo monzon Meth odist POC GLUCOSE 2019-01-31 21:01:00 LenyEnzo monzon Meth odist POC GLUCOSE 2019-01-31 16:27:00 LenyEnzo monzon Meth odist POC GLUCOSE 2019-01-31 13:11:00 LenyEnzo monzon Meth odist HEMODIALYSIS 2019-01-31 09:28:33 Nikia Saini [facility] POC GLUCOSE 2019-01-31 06:35:00 Chaparro Stinson ohamed A [facility] HC COMPLETE BLD COUNT W/AUTO DIFF 2019-01-31 05:50:00 Chaparro Hansenamed A [facility] COMPREHENSIVE METABOLIC PANEL 2019-01-31 05:50:00 Chaparro Monterroso A Amin [facility] ESTIMATED GFR 2019-01-31 05:50:00 Chaparro Stinson ohamed A [facility] POC GLUCOSE 2019-01-30 19:55:00 Chaparro Stinson ohamed A [facility] POC GLUCOSE 2019-01-30 16:53:00 Chaparro Stinson ohamed A [facility] POC GLUCOSE 2019-01-30 12:01:00 Chaparro Stinson ohamed A [facility] POC GLUCOSE 2019-01-30 06:26:00 Chaparro Stinson ohamed A [facility] HC COMPLETE BLD COUNT W/AUTO DIFF 2019-01-30 06:10:00 Chaparro Hansenamed A [facility] COMPREHENSIVE METABOLIC PANEL 2019-01-30 06:10:00 Chaparro Monterroso A Amin [facility] ESTIMATED GFR 2019-01-30 06:10:00 Chaparro Stinson ohamed A [facility] POC GLUCOSE 2019-01-29 17:02:00 Chaparro Stinson ohamed A [facility] CV STRESS TEST NUCLEAR CARDIO 2019-01-29 15:07:57 Thaddeus Elizabeth Chelita viktoriacheng [facility] POC GLUCOSE 2019-01-29 12:28:00 Abouelsebertod Paulaseana Godinez ohamed A [facility] TTE COMPLETE, WO CONTRAST, W DOPPLER ([id number]) 2019-01-29 12:2 2:04 Thaddeus Elizabeth Teodora Amin [facility] POC GLUCOSE 2019-01-29 06:22:00 Abouelseoud, Paulaseana Godinez ohamed A Amin [facility] HC COMPLETE BLD COUNT W/AUTO DIFF 2019-01-29 05:42:00 Abouel seoud, Paulaseana Mcdonaldad Mekaamed A [facility] COMPREHENSIVE METABOLIC PANEL 2019-01-29 05:42:00 Abouelseou d, Tanseana Ackermanamed A Amin [facility] ESTIMATED GFR 2019-01-29 05:42:00 Abouelseoud, Paulaseana Godinez ohamed A [facility] POC GLUCOSE 2019-01-28 20:33:00 Abouelsebertod, Paulaseana hinkleamed A [facility] POTASSIUM LEVEL 2019-01-28 18:09:00 Abomelizasebertod, Paulaseana Mcdonaldad Herbert ohamed A [facility] HEPATITIS B CORE ANTIBODY TOTAL 2019-01-28 18:09:00 Abomelizase ouPaula willettseana Ackermanamed A [facility] HEPATITIS B CORE ANTIBODY IGM 2019-01-28 18:09:00 Abouelseberto willett, Paulaseana Mcdonaldad Mekaamed A [facility] HEPATITIS B SURFACE ANTIBODY 2019-01-28 18:09:00 Abouelsebertod Paulaseana Ackermanamed A [facility] POC GLUCOSE 2019-01-28 15:58:00 AbouelsebertodPaulaseana Zee M ohamed A [facility] POC GLUCOSE 2019-01-28 12:01:00 AbomelizasePaula devriesseana Zee M ohamed A [facility] HEPATITIS B SURFACE ANTIGEN 2019-01-28 10:18:00 Kraig Serrato [facility] HEPATITIS B SURFACE AB, QUANTITATIVE 2019-01-28 10:16:00 Bryan Serrato [facility] POC GLUCOSE 2019-01-28 06:28:00 AboChaparro orr HC COMPLETE BLD COUNT W/AUTO DIFF 2019-01-28 05:30:00 Ramon Miller PROTHROMBIN TIME WITH INR 2019-01-28 05:30:00 Dee Miller BASIC METABOLIC PANEL 2019-01-28 05:30:00 Dee Miller [facility] LIPID PANEL 2019-01-28 05:30:00 Dee Miller odist B NATRIURETIC PEPTIDE 2019-01-28 05:30:00 Dee Miller [facility] ESTIMATED GFR 2019-01-28 05:30:00 Dee Miller odalisha PHOSPHORUS LEVEL 2019-01-28 05:30:00 Danny Gray HEMOGLOBIN A1C 2019-01-28 05:30:00 Chaparro Sitnson TROPONIN 2019-01-28 03:14:00 Antwon Olvera odist POC GLUCOSE 2019-01-27 23:05:00 Chaparro Stinson TROPONIN 2019-01-27 21:56:00 Antwon Olvera odalisha XR CHEST 1 VW 2019-01-27 19:08:00 Antwon Olvera odalisha ECG ED PRELIMINARY INTERPRETATION 2019-01-27 18:27:16 Mi Olvera HC COMPLETE BLD COUNT W/AUTO DIFF 2019-01-27 17:56:00 Mi Olvera COMPREHENSIVE METABOLIC PANEL 2019-01-27 17:56:00 Antwon Olvera i TROPONIN 2019-01-27 17:56:00 WadeAntwon nuno odist B NATRIURETIC PEPTIDE 2019-01-27 17:56:00 Antwon Olvera [facility] ESTIMATED GFR 2019-01-27 17:56:00 WadeAntwon nuno Meth odist ECG 12-LEAD 2019-01-27 17:44:02 WadeAntwon nuno Meth odalisha Computed tomography of brain without radiopaque contrast 201 02-23-26 00:00:00 SUNITA AYALA [facility] Plan of Care Planned Activity Planned Date Details Comments Source Future Scheduled Test 2020-01-20 00:00:00 INFLUENZA VACCINE [code = INFLUENZA VACCINE] [facility] Future Scheduled Test 2018-06-18 00:00:00 BREAST CANCER SCRE ENING [code = BREAST CANCER SCREENING] [facility] Future Scheduled Test 2015-08-20 00:00:00 SHINGLES VACCINES (#2) [code = SHINGLES VACCINES (#2)] [facility] Future Scheduled Test 1997 00:00:00 COLONOSCOPY SCREEN ING [code = COLONOSCOPY SCREENING] [facility] Scheduled Test 1957 00:00:00 DIABETIC FOOT EXAM [code = DIABETIC FOOT EXAM] [facility] Future Scheduled Test 1947 00:00:00 DIABETIC RETINAL E YE EXAM [code = DIABETIC RETINAL EYE EXAM] [facility] Encounters Start Date/Time End Date/Time Encounter Type Admission Type Att[facility] Care Department Encounter ID Source 2019-11-16 00:00:00 2019-11-17 00:00:[address] [place] [id number] [facility] 2019-11-09 00:00:00 2019-11-11 00:00:00 Outpatient SHREEFABRIZIOJUVENTINO [place] [id number] [facility] 2019-11-05 00:00:00 2019-11-06 00:00:00 Emergency JEREMIAH PAYNE [place] [id number] [facility] 2019-11-02 00:00:00 2019-11-02 00:00:00 Emergency LETTY SCHWARTZ [place] [address] [id number] [facility] 2019-10-30 00:00:00 2019-10-31 00:00:00 Emergency Virgen FIGUEROA [place] [address] [id number] [facility] 2019-10-17 00:00:00 2019-10-18 00:00:00 Emergency JEREMIAH PAYNE [place] [address] [id number] [facility] 2019-10-14 00:00:00 2019-10-14 00:00:00 Emergency JEREMIAH REYES [place] [address] [id number] [facility] 2019-10-10 00:00:00 2019-10-12 00:00:00 Outpatient ISAÍAS HAMMER [place] [id number] [facility] 2019-10-08 00:00:00 2019-10-08 00:00:00 Emergency ANTWON OLVERA [place] [id number] [facility] 2019-10-03 00:00:00 2019-10-03 00:00:00 Emergency OMAR RODRÍGUEZ [place] [address] [id number] [facility] 2019-09-23 00:00:00 2019-09-23 00:00:00 Emergency JEREMIAH PAYNE [place] [address] [id number] [facility] 2019-09-12 00:00:00 2019-09-12 00:00:00 Outpatient YUNIELDigna RAMOS CHAPARRO [place] [address] [id number] [facility] 2019-09-07 00:00:00 2019-09-09 00:00:00 Inpatient ABNER PAULA [place] [address] [id number] [facility] 2019-09-05 00:00:00 2019-09-05 00:00:00 Emergency [facility] [id number] [facility] [facility] 2019-09-02 00:00:00 2019-09-04 00:00:00 Outpatient Herbert WONG [place] [address] [id number] [facility] 2019-08-25 00:00:00 2019-08-29 00:00:00 Inpatient TRAYLANCE Willett PAULADESTINI [place] [address] [id number] [facility] 2019-08-19 00:00:00 2019-08-20 00:00:00 Outpatient Herbert WONG AI [place] [address] [id number] [facility] 2019-08-15 00:00:00 2019-08-15 00:00:00 Emergency FOSTER [facility]E [facility] [id number] [facility] 2019-08-10 00:00:00 2019-08-10 00:00:00 Emergency JEREMIAH PAYNE [place] [address] [id number] [facility] 2019-07-17 00:00:00 2019-07-19 00:00:00 Outpatient HERMILO VALENZUELA [facility] [id number] [facility] 2019-07-08 00:00:00 2019-07-09 00:00:00 Outpatient MARGARET PAULA [facility] [id number] [facility] 2019-06-27 00:00:00 2019-06-29 00:00:00 Outpatient AHMET CANAS [facility] [id number] [facility] 2019-06-08 00:00:00 2019-06-20 00:00:00 Inpatient ALAYNA FINNEY [place] [address] [id number] [facility] 2019-06-07 00:00:00 2019-06-07 00:00:00 Emergency KENZIE WATTS [place] [address] [id number] [facility] 2019-06-01 00:00:00 2019-06-03 00:00:00 Outpatient MARGARET PAULA [facility] [id number] [facility] 2019-04-23 00:00:00 2019-04-26 00:00:00 Outpatient MARGARET PAULA [facility] [id number] [facility] 2019-04-14 00:00:00 2019-04-21 00:00:00 Inpatient ALAYNA FINNEY [place] [address] [id number] [facility] 2019-04-01 00:00:00 2019-04-12 00:00:00 Inpatient DANGELO LOPEZ [place] [address] [id number] [facility] 2019-02-21 00:00:00 2019-02-21 00:00:00 Emergency KRISTIAN [facility] [id number] [facility] 2018-11-01 09:59:00 2018-11-14 13:40:00 Discharged Inpatient 1 TONG BRADSHAW [facility] [id number] [facility] 2017-10-27 10:58:00 2017-11-18 23:59:00 Discharged Recurring [facility] [id number] [facility] 2017-11-09 07:22:00 2017-11-11 16:26:00 Discharged Inpatient 1 BABAR ALEJO [facility] [id number] [facility] 2017-09-22 12:36:00 2017-10-18 23:59:00 Discharged Recurring [facility] [id number] [facility] 2017-09-15 12:09:00 2017-09-18 23:59:00 Discharged Recurring [facility] [id number] [facility] 2017-07-28 12:47:00 2017-08-18 23:59:00 Discharged Recurring [facility] [id number] [facility] 2017-08-02 12:55:00 2017-08-12 18:00:00 Discharged Inpatient ER TONG BRADSHAW [facility] [id number] [facility] 2017-07-21 12:53:00 2017-07-21 23:59:00 Discharged Recurring [facility] [id number] [facility] 2017-05-26 12:00:00 2017-06-20 23:59:00 Discharged Recurring SABRINA MENON [facility] [id number] [facility] 2017-05-12 11:31:00 2017-05-20 23:59:00 Discharged Recurring [facility] [id number] [facility] 2017 13:31:00 2017-04-20 23:59:00 Discharged Recurring [facility] [id number] [facility] 2017-03-16 08:50:00 2017-03-20 23:59:00 Discharged Recurring [facility] [id number] [facility] Results Test Description Test Time Test Comments Results Result Comments Source D-dimer 2019-11-17 12:05:14 Test Item D-dimer (test code = 23593-4) 0.44 0.00- 0.40 ug/mL FEU H Units are ug/ml Fibrinogen Equivalent Unit.When combined with low clinical probability, D-dimer results of less than 0.5 ug/ml FEU have a good negative predictive value in excluding PE or DVT. For D-dimer results greater than 0.5 ug/ml FEU further testing is indicated if PE or DVT is suspected clinically.Elevated D-dimer results have been reported in DVT, PE, and DIC cases and may indicate the pre sence of a clot. D-dimer results may be elevated due to old age, , inflammatory diseases, trauma, post-operative states, sepsis, and malignancies. Lab Interpretation (test code = 38542-6) Abnormal [facility] TexasSoantggbxFanifcfs1516-79-16 08:28:00* Test Item Value Reference Range Interpretation Comments Troponin (test code = 90269-4) 0.048 ng/mL 0-0.04 H In patients suspected of having a myocardial infarction, along with all other appropriate clinical measures and actions including ECG and other diagnostics as appropriate, measure Ultra TnI at 0 hrs and at 3 hrs.Myocardial infarction VERY LIKELYThe 0 hr TnI level is > 0.10 ng/mL Frankie cardial infarction LIKELYThe 0 hr TnI level is > 0.04 ng/mL and 3 hr level is increased or decreased by at least 0.020 ng/mL Myocardi al infarction VERY UNLIKELYBoth the 0 hr and 3 hr TnI levels <= 0.04 ng/mL(within normal limits) OR 0 hr is > 0.04 ng/mL and 3 hr is increased OR decreased by less than 0.020 ng/mL Lab Interpretation (test code = 12513-7) Abnormal [facility] 12 [id number] 23:25:34* Test Item Value Reference Range Interpretation Comments Ventricular rate (test code = 253) 85 Atrial rate (test code = 255) 85 DC interval (test code = 266) 158 QRSD interval (test code = 260) 88 QT interval (test code = 264) 406 QTC interval (test code = 265) 483 P axis 1 (test code = 267) 85 QRS axis 1 (test code = 268) -81 T wave axis (test code = 270) 39 EKG impression (test code = 273) Normal sinus rhythm-L eft axis deviation-Cannot rule out Anterior infarct , age undetermined-Abnormal ECG-In automated comparison with ECG of 09-NOV-2019 20:27,-Nonspecific T wave abnormality now evident in Lateral leads- [facility] ED Preliminary Interpretation - Not an [id number] 21:12:50* Test Item Value Reference Range Interpretation Comments GARETT (test code = GARETT) Jeremiah Payne MD 11/17/2019 6:45 [facility] ED Preliminary Interpretation - Not an OrderPerformed by: Jeremiah Payne MDAuthorized by: Jeremiah Payne MD ECG reviewed by ED Physician in the absence of a naval marine engineer: yes Interpretation: Interpretation: abnormal Interpretation comment: Not STEMIRate: ECG rate: 85 ECG rate assessment: normal Rhythm: Rhythm: sinus rhythm Ectopy: Ectopy: none QRS: QRS axis: Normal QRS intervals: NormalConduction: Conduction: normal ST segments: ST segments: NormalT waves: T waves: normal Other findings: Other findings : poor R wave progression Lab Interpretation (test code = 81521-2) Abnormal [facility] TexasistB natriuretic [id number] 20:32:43* Test Item Value Reference Range Interpretation Comments BNP (test code = 13105-0) 343 pg/mL 0-100 H Lab Interpretation (test code = 97302-8) Abnormal [facility]Com[facility] metabolic [id number] 20:25:15* Test Item Value Reference Range Interpretation Comments Sodium (test code = 2951-2) 135 135- 150 mEq/L Potassium (test code = 2823-3) 3.8 3.5- 5.0 mEq/L Chloride (test code = 2075-0) 90 98- 112 mEq/L L CO2 (test code = 2027-9) 26 mmol/L 24-31 Anion gap (test code = 33939-9) 19@ANIO 7- 15 mEq/L H BUN (test code = 3094-0) 14 mg/dL 7-18 Creatinine (test code = 2160-0) 4.10 mg/dL 0.5-0.9 H Glucose (test code = 2345-7) 204 mg/dL 65-100 H Calcium (test code = 26814-0) 9.5 mg/dL 8.8-10.2 Protein (test code = 2885-2) 7.9 g/dL 6.3-8.3 Albumin (test code = 1751-7) 3.8 g/dL 3.5-5 A/G ratio (test code = 1759-0) 0.9 0.7-3.8 Alkaline phosphatase (test code = 6768-6) 101 U/L 0-104 AST (test code = 1920-8) 18 U/L 10-35 ALT (test code = 1742-6) 9 U/L 5-50 Total bilirubin (test code = 1975-2) 1.0 mg/dL 0.2-1.2 Lab Interpretation (test code = 75077-2) Abnormal [facility] MethodistEstimated [id number] 20:25:15* Test Item Value Reference Range Interpretation Comments Estimated GFR (test code = 5488) 10 mL/min/1.73 m2 A Catergory Units InterpretationG1 >=90 Normal or highG2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 painComparison: None.Findings:CT scans are performed using radiation dose reduction techniques. Technical factors are evaluated and adjusted to ensure appropriate moderation of exposure. Automated dose management technology is applied to adjust radiation exposure while achieving a diagnostic quality image. CT imaging was performed with ite rative reconstruction techniques and/or automated exposure control to reduce rad iation dose.CT scan of the chest was performed without intravenous contrast.Ther e is a small left pleural effusion noted. Left lower lobe volume loss is seen.Ri ght lung is clear.No pneumothorax is seen.No mediastinal hematoma or lymphadenop athy is seen.There is large amount of subcutaneous edema noted in the left anter ior chest wall. No discrete fluid collection or organized hematoma is seen.The v isualized bony structures show no acute abnormality.Visualized upper abdomen lisa w cholecystectomy clips.IMPRESSION:1. Large amount of subcutaneous edema at the left anterior chest wall likely representing soft tissue contusion. No discrete fluid collection or organized hematoma is seen.2. Small left pleural effusion wi th left lower lobe volume loss.[facility]-[id number] MethodistCT Head Wo [id number] 00:11:53Hm Interface, Radiology Results 10/18/2019 12:14 AM CDTEXAMINATION: CT HEAD WO CONTRASTCLINICAL HISTORY: s p mvaCOMPARISON: CT brain dated October 14, 2019TECHNIQUE: Noncontrast enhanced images of the brain were obtained from the skull base to the vertex. Both soft tissue and bone reconstruction algorithms were performed. CT imaging was performed with iterative reconstruction technique and/or automated exposure control to reduce radiation dose.FINDINGS:The brain parenchyma has no acute lesion. The [...] hemorrhage. Findings are similar to the prior exam.No acute soft tissue hematoma or laceration.Paranasal sinuses shows no acute air-fluid levels. Mastoid air cells are clear. No skull fractures or aggressive bony lesions. IMPRESSION:There are involutional changes as detailed above with no acute intracranial abnormality. No significant changes from prior exam.RM-WPHYJWPHouston MethodistBasic metabolic [id number] 15:06:52* Test Item Value Reference Range Interpretation Comments Sodium (test code = 2951-2) 136 135- 150 mEq/L Potassium (test code = 2823-3) 4.8 3.5- 5.0 mEq/L Chloride (test code = 2075-0) 93 98- 112 mEq/L L CO2 (test code = 8-9) 26 mmol/L 24-31 Anion gap (test code = 73500-2) 17@ANIO 7- 15 mEq/L H BUN (test code = 3094-0) 39 mg/dL 7-18 H Creatinine (test code = 2160-0) 6.80 mg/dL 0.5-0.9 H Glucose (test code = 2345-7) 183 mg/dL 65-100 H Calcium (test code = 97152-6) 8.4 mg/dL 8.8-10.2 L Lab Interpretation (test code = 38154-5) Abnormal [facility] CampusHep[facility] function [id number] 15:06:52* Test Item Value Reference Range Interpretation Comments Albumin (test code = 1751-7) 3.4 g/dL 3.5-5 L Total bilirubin (test code = 1974-2) 0.4 mg/dL 0.2-1.2 Bilirubin direct (test code = 1967-7) <0.2 0-0.4 Alkaline phosphatase (test code = 6768-6) 90 U/L 0-104 Protein (test code = 2885-2) 7.1 g/dL 6.3-8.3 ALT (test code = 1742-6) 5 U/L 5-50 AST (test code = 1920-8) 11 U/L 10-35 Lab Interpretation (test code = 39261-8) [facility]normal [facility] MethodistHemoglobin [id number] 10:48:54* Test Item Value Reference Range Interpretation Comments Hemoglobin A1C (test code = 66451-0) 7.3 % 4-5.6 H HbA1c cutoffs for diagnosing diabetes:4.0% - 5.6% = normal5.7% - 6.4% = increased risk for diabetes (prediabetes)9>=6.5% = xdialjfs7Fsimk for glycemic control (ADA 2016)< 7.0% Target for non adults with diabetes. More or less stringent targets may be appropriate for individual patients. <7.5% Target for Children and adolescents with type 1 diabetes. Lab Interpretation (test code = 30655-7) Abnormal [facility] MethodistXR Abdomen 1 Vw [id number] 14:09:06Hm Interface, Radiology Results 10/11/2019 2:12 PM CDTEXAMINATION: XR ABDOMEN 1 VW PORTABLECLINICAL HISTORY: intractable N vCOMPARISON: None.FINDINGS:XR ABDOMEN 1 VW PORTABLE images are submitted.The bowel gas pattern is nonspecific. No pathologic masses or calcifications are identified. Bowel gas scattered throughout small bowel and colon. There is no evidence of any focal obstruction. Mild colonic fecal retention is present.There are changes of prior cholecy stectomy. A vascular stent is seen extending from the abdominal aorta into the l eft common iliac artery. Surgical clips are seen within the mid abdomen.IMPRESSI ON:1. Unremarkable abdominal radiograph. 2. There is no focal bowel obstruction .[facility] CITYJ-[id number] MethodistAmylase [id number] 12:19:40* Test Item Value Reference Range Interpretation Comments Amylase (test code = 1798-8) 25 U/L 28-100 L Lab Interpretation (test code = 70843-1) Abnormal [facility] MethodistCT Renal Stone [id number] 15:06:00Hm Interface, Radiology Results - 10/10/2019 3:09 PM CDTEXAMINATION: CT RENAL STONE PROTOCOLCLINICAL HISTORY: Abd pain unspecifiedTECHNIQUE: Multiple axial images of the abdomen and pelvis were obtained without intravenous adm inistration of iodinated contrast. Sagittal and coronal computerized reformatted images were also obtained. The lack of intravenous contrast reduces the sensiti vity of detecting solid organ disease.DOSE REDUCTION: CT imaging was performed w ith iterative reconstruction technique and/or automated exposure control to redu ce radiation dose.COMPARISON: CT chest without contrast from 09/07/2019FINDINGS: 1.Asymmetric edema is seen within the superficial soft tissues of the left hemit horax with overlying soft tissue thickening within the left breast. No focal flu id collections. Dystrophic calcifications are seen within both breasts which are nonspecific.2.Consolidative airspace disease is also noted within the left lung base with a small, likely complex left-sided pleural effusion.3.No hiatal herni a. The cardiac size is enlarged. No pericardial effusion.4.Noncontrast evaluatio n of the liver is unremarkable. No intrahepatic biliary ductal dilatation. The p atient is status post cholecystectomy.5.The pancreas, spleen, and adrenals are u nremarkable.6.Both kidneys are normal in morphology without hydronephrosis or ne phrolithiasis. Nonspecific bilateral perinephric stranding is noted. The ureters are unremarkable. The bladder is decompressed. No bladder wall thickening. A fo cus of nondependent air is noted within the bladder which is nonspecific, correl ate for recent instrumentation or Cagle catheter.7.The patient is status post hy sterectomy. The ovaries are not well visualized.8.No dilated loops of large or s mall bowel. No intraperitoneal free air or free fluid. A moderate amount of stoo l is seen within the colon, correlate for constipation. The appendix is not well visualized. Extensive diverticulosis is seen within the sigmoid colon without e vidence of acute diverticulitis. Surgical clips are seen within the mid epigastr ic region just superior to the umbilicus, and may be related to prior anterior a bdominal wall hernia repair with mesh.9.The abdominal aorta is normal in caliber with a significant amount of calcified atherosclerotic disease.10.No abdominal or pelvic lymphadenopathy.11.A vascular stent is seen within the left common jemima ac vein.12.The bones of the abdomen and pelvis are osteopenic.IMPRESSION:1.Mild constipation. Otherwise unremarkable evaluation of the abdomen and pelvis.2.Asym metric edema is noted within the superficial soft tissues of the left hemithorax . These findings appear more pronounced on today's examination than previous [facility] CT from 09/07/2019 and may be related to an overlying cellulitis or vascular o cclusion, please clinically correlate.3.Left lower lobe consolidative airspace d isease likely representing atelectasis with a small left-sided complex pleural e ffusion.[facility]AAGu[facility] MethodistUrine [id number] 19:29:38* Test Item Value Reference Range Interpretation Comments Urine culture isolate (test code = 70496-2) Mixed faina <=10-3 col/ cc Specimen InformationSpecimen Source: UrineSpecimen Site: Clean catch [facility] MethodistUrinalysis screen and microscopy, with reflex to culture 2019-10-08 15:24:46* Test Item Value Reference Range Interpretation Comments Specimen site (test code = 1573140) Clean catch Color, UA (test code = 5778-6) Yellow Appearance, UA (test code = 5767-9) Slightly-Cloudy Specific gravity, UA (test code = 5811-5) 1.017 1.001-1.035 pH, UA (test code = 5803-2) 6.0 5.0-8.5 Protein, UA (test code = 53538-0) 3+ Negative A Glucose, UA (test code = 83744-3) 2+ Negative A Ketones, UA (test code = 2514-8) Negative Negative Bilirubin, UA (test code = 5770-3) Negative Negative Blood, UA (test code = 5794-3) Small Negative A Nitrite, UA (test code = 5802-4) Negative Negative Urobilinogen, UA (test code = 97833-0) Negative <2.0 Leukocyte esterase, UA (test code = 5799-2) Moderate Negative A Epithelial cells, UA (test code = 5787-7) Many /HPF WBC, UA (test code = 5821-4) 55 0- 5 /HPF H RBC, UA (test code = 60652-0) 47 0- 5 /HPF H Bacteria, UA (test code = 40473-8) None seen None seen WBC clumps, UA (test code = 35852-5) Few A Yeast, UA (test code = 54380-9) None seen Yeast with pseudohyphae, UA (test code = 47890-0) None seen Lab Interpretation (test code = 18522-6) Abnormal [facility] MethodistHepatitis acute [id number] 14:30:41* Test Item Value Reference Range Interpretation Comments Hepatitis A IgM (test code = 25578-4) Non-reactive Non-reactive Hepatitis B core IgM (test code = 24004-6) Non-reactive Non-reactiv e Hepatitis B surface Ag (test code = 5195-3) Non-reactive Non-reacti ve Hepatitis C Ab (test code = 15517-0) Non-reactive Non-reactive [facility] MethodistPartial thromboplastin time, egoulwxbp1595-34-57 13:29:04* Test Item Value Reference Range Interpretation Comments PTT (test code = 3173-2) 32.6 23.0- 36.0 sec P TT therapeutic range for unfractionated heparin is61.0-112.0 seconds which corresponds to Anti-Xa0.3-0.7 U/ml. Amin NondenominationalBlood culture, aerobic & hcyocqamt3247-38-97 01:03:10* Test Item Value Reference Range Interpretation Comments Blood culture isolate (test code = 600-7) No growth after 5 days of incubation. Specimen InformationSpecimen Source: BloodSpecimen Site: RAC [facility] MethodistBeta [id number] 22:34:01* Test Item Value Reference Range Interpretation Comments Beta hydroxybutyrate (test code = 6873-4) 0.15 mmol/L 0.02-0.27 [facility] PatriciaistMagnesium [id number] 22:32:53* Test Item Value Reference Range Interpretation Comments Magnesium (test code = 16701-4) 1.90 mg/dL 1.6-2.4 [facility] PatriciaistStrep screen [id number] 08:53:01* Test Item Value Reference Range Interpretation Comments Strep screen culture isolate (test code = 2246) No bet a hemolytic Streptococci isolated Specimen Information Specimen Source: ThroatSpecimen Site: Not otherwise specified [facility] MethodistRenal function [id number] 07:16:41* Test Item Value Reference Range Interpretation Comments Sodium (test code = 2951-2) 138 135- 150 mEq/L Potassium (test code = 2823-3) 4.4 3.5- 5.0 mEq/L Chloride (test code = 2075-0) 97 98- 112 mEq/L L CO2 (test code = 2027-9) 22 mmol/L 24-31 L Anion gap (test code = 25862-2) 19@ANIO 7- 15 mEq/L H BUN (test code = 3094-0) 34 mg/dL 7-18 H Creatinine (test code = 2160-0) 5.30 mg/dL 0.5-0.9 H Glucose (test code = 2345-7) 121 mg/dL 65-100 H Calcium (test code = 72665-1) 8.5 mg/dL 8.8-10.2 L Albumin (test code = 1751-7) 3.4 g/dL 3.5-5 L Phosphorus (test code = 2777-1) 5.2 mg/dL 2.4-4.5 H Lab Interpretation (test code = 42083-9) Abnormal [facility] CampusLactic acid [id number] 06:25:40* Test Item Value Reference Range Interpretation Comments Lactic acid (test code = 10508-0) 1.5 mmol/L 0.5-2.2 [facility] [id number] 02:57:22Respiratory pathogen panelNegative for all pathogens tested:Negative for AdenovirusNegative for Coronavirus IOM4Peyfacwj for Coronavirus EX61Ezgqxzdd for Coronavirus 229ENegative for Coronavirus DF93Ndlwqnqe for Human MetapneumovirusNegative for Rhinovirus/EnterovirusNegative for Influenza ANegative for Influenza A/H1N egative for Influenza A/J4Ecjjmyqy for Influenza A/H1-2009Negative for Influenza BNegative for Parainfluenza Virus 1Negative for Parainfluenza Virus 2Negative f or Parainfluenza Virus 3Negative for Parainfluenza Virus 4Negative for Respirato ry Syncytial VirusNegative for Bordetella pertussisNegative for Chlamydophila pn eumoniaeNegative for Mycoplasma pneumoniaeThis real-time PCR assay detects the p resence of nucleic acids (RNA or DNA) for the respiratory pathogens listed. A r esult of "Not-detected" does not exclude the possibility of the presence of one or more pathogens at concentrations less than the detectable limits of the assay . Comment: Specimen InformationSpecimen Source: NaresSpecimen Site: [facility] Methodsocorro [facility] hospitalGroup A strep, rapid [id number] 22:32:07Group A strep, rapid antigen resultNegative for Group A Streptococcus antigen.All negative Group A Streptococcus antigen screens areconfirmed by culture. Comment: Specimen InformationSpecimen Source: ThroatSpecimen Site: Not otherwise specified [facility] MethodistInfluenza antigen test, reflex negative to [id number] 22:27:40* Test Item Value Reference Range Interpretation Comments Influenza antigen (test code = 30175-9) Negative for Influenza A/B antigen. Specimen InformationSpecimen Source: NaresSpecimen Site: Right Amin MethodistVancomycin level, [id number] 07:23:42* Test Item Value Reference Range Interpretation Comments Vancomycin, random (test code = 00559-4) 10.7 ug/mL Therapeutic Ranges: Peak 30.0 - 40.0 ug/mL Trough 10.0 - 20.0 ug/mL [facility] MethodistPrepare RBC, 1 [id number] 14:00:00* Test Item Value Reference Range Interpretation Comments Product name (test code = 25) Apheresis Red Cell AS3 #2 LR Unit number (test code = 1666621) [id number] Product code (test code = 3092) [id number] Dispense status (test code = 24) Transfused Blood expiration date (test code = 302) [id number] Blood type code (test code = 308) 600 Blood type (test code = 1314) A NEGATIVE Compatibility (test code = 6400) Compatible [facility] MethodistType and bohtdx4087-18-18 12:17:00* Test Item Value Reference Range Interpretation Comments ABO grouping (test code = 883-9) A Rh type (test code = 79682-2) POS Antibody screen (gel) (test code = 890-4) NEG [facility] MethodistManual nacspomlsrxn7637-03-49 08:56:23* Test Item Value Reference Range Interpretation Comments Manual differential (test code = 08738-5) PERFORMED Neutrophils (test code = 94320-5) 53.0 % 36-66 Lymphocytes (test code = 64686-8) 42.0 % 24-44 Monocytes (test code = 31651-1) 4.0 % 0-6 Eosinophils (test code = 25384-3) 1.0 % 0-6 Basophils (test code = 56992-0) 0.0 % 0-1.2 Metamyelocytes (test code = 740-1) 0 % 0-1 Promyelocytes (test code = 783-1) 0 % 0-1 Platelet slide review (test code = 15953-9) Nannette adequate Anisocytosis (test code = 702-1) slight Polychromasia (test code = 75055-0) slight Ovalocytes (test code = 774-0) Occasional [facility] duplex venous upper [id number] 05:58:12Hm Interface, Radiology Results - 08/26/2019 6:01 AM CSTEXAMINATION: US DUPLEX VENOUS UPPER EXTREMITY LEFTCLINICAL HISTORY: Arm swelling or pain DVT suspectedCOMPARISON: None.TECHNIQUE: Grayscale, color Doppler, and spectral waveform analysis of the left upper extremity deep venous system was performed. Spectral Doppler evaluation of the contralateral subclavian vein was also perfor med.FINDINGS:The left Internal jugular vein demonstrates normal flow and donnie sibility. The left subclavian, axillary, brachial, basilic, and forearm veins re veal no evidence of thrombosis. The veins demonstrate normal Doppler flow and no rmal compressibility. The contralateral subclavian vein is patent. A brachial ar wolf to cephalic vein fistula is patent.IMPRESSION:Normal left upper extremity v enous Doppler examination. No sonographic evidence of deep venous thrombosis of the left upper extremity. Patent left brachial artery to cephalic vein fistula. [id number] MethodistCTA Upper Extremity Left W Wo [id number] 01:40:42Hm Interface, Radiology Results 08/26/2019 1:43 AM CSTEXAMINATION: CT ANGIOGRAM UPPER EXTREMITY LEFT W WO CONTRASTCLINICAL HISTORY: swelling diffusely in left arm around fistulaCOMPARISON: None.TECHNIQUE: CT angiographic images of the left upper extremity were obtained during intravenous administration of iodinated contrast. Computerized reformatted images, MIP images, and 3-D volume rendered images were also obtained. CT imaging was performed with iterative reconstruction techniques and/or automated exposure control to reduce radiation dose. FINDINGS:A brachial arterial to basilic vein fistula is seen and is patent. Contrast is noted within the left subclavian vein extending into the axillary vein, likely secondary to the patent AV fistula and retrograde flow. No contrast is seen within the cephalic vein and brachial veins, likely secondary to timing of contrast bolus.Noncalcific plaque along the proximal brachial artery causes moderate stenosis. Calcific plaque along the left subclavian artery also causes moderate stenosis.There is scattered atherosclerotic calcification along the ulnar artery with multifocal areas of mild to moderate stenosis. The radial artery is small in caliber, but appears patent. The posterior interosseous artery is also small in caliber, but appears patent.There is extensive subcutaneous soft tissue edema along the left upper extremity at the level of the elbow extending along the forearm as well as along the level of the mid/distal humerus. There is mild adjacent skin thickening along the posterior aspect of the elbow. No well-defi annita fluid collections are identified.No acute or aggressive osseous lesion is se en. Changes of median sternotomy are partially visualized.Partially visualized. A small left pleural effusion is partially seen. Atelectatic changes are seen de pendently in both partially visualized lungs.IMPRESSION:Patent left brachial-bas ilic AV fistula.No contrast is seen within the cephalic and brachial veins as we ll as a venous structures of the left upper extremity, likely due to timing of c ontrast bolus.Extensive soft tissue edema/swelling along the anterior and motor transport inspector ior aspects of the left upper extremity centered about the elbow with mild adjac ent posterior skin thickening, suggesting cellulitis. No well-defined fluid raul ection identified.Focal regions of moderate stenosis along the left subclavian a rtery and proximal brachial artery with multifocal areas of mild to moderate matt nosis along the ulnar artery.[facility] 1 [id number] 20:05:35Hm Interface, Radiology Results Incoming 08/19/2019 8:08 PM CSTEXAMINATION: XR CHEST 1 VWCLINICAL HISTORY: SOBCOMPARISON: August 10, 2019 chestIMPRESSIO N:Stable appearance of the chestLeft lower lobe infiltrate and or scarring with small costophrenic angle effusion as on previous.Stable cardiomegaly. Atheroscle rosis and sternotomy wires as before. CABG clips unchangedRight IJ dialysis cath eter projected over right atriumNo pneumothoraxSingle view chest. .[facility]-[id number] [facility]2020-01-29 13:35:56* Test Item Value Reference Range Interpretation Comments Potassium (test code = 2823-3) 4.9 3.5- 5.0 mEq/L [facility] Chest 2 [id number] 17:54:54Hm Interface, Radiology Results Incoming 07/17/2019 5:58 PM CSTEXAMINATION: XR CHEST 2 VWCLINICAL HISTORY: sobCOMPARISON: [facility]:Lines: Right IJ dual-lumen dialysis catheter terminates at the cavoatrial junction.Lungs and pleura: Trace left effusion and left basilar atelectasis. No pneumothorax.Heart and mediastinum: Stable appearance of cardiomediastinal silhouette. Post CABG changes in median sternotomy.Bones: Thoracic spondylosisHOSPITAL FOR BEHAVIORAL MEDICINE-[id number] MethodistCRITICAL [id number] 17:04:28Antwon Olvera MD 07/18/2019 4:47 PMCritical CarePerformed by: Antwon Olvera MDAuthorized by: Antwon Olvera MD Critical care provider statement: Critical care time (minutes): 35 Critical care time was exclusive of: Separately billable procedures and treating other patients Critical care was necessary to treat or prevent imminent or life-threatening deterioration of the following conditions: Cardiac failure (HTN emergency) Critical care was time spent personally by me on the following activities: Discussions with consultants, evaluation of patient's response to treatment, examination of patient, obtaining history from patient or surrogate, review of old charts, re-evaluation of patient's condition, ordering and review of laboratory studies, ordering and performing treatments and interventions, blood draw for specimens and development of treatment plan with patient or surrogate Eleno 'yes' if you are taking over critical care for this patient from another provider.: [facility] 17:25:52Deshaun Figueroa MD 07/09/2019 3:25 PMCritical CarePerformed by: Deshaun Figueroa MDAuthorized by: Deshaun Figueroa MD Critical care provider statement: Critical care time (minutes): 35 Critical care time was exclusive of: Separately billable procedures and treating other patients Critical care was necessary to treat or prevent imminent or life- threatening deterioration of the following conditions: Metabolic crisis Critical care was time spent personally by me on the following activities: Development of treatment plan with patient or surrogate, blood draw for specimens, discussions with consultants, evaluation of patient's response to treatment, examination of patient, interpretation of cardiac output measurements, obtaining history from patient or surrogate, ordering and performing treatments and interventions, ordering and review of laboratory studies, ordering and review of radiographic studies, pulse oximetry, re- evaluation of patient's condition and review of old charts Eleno 'yes' if you are taking over critical care for this patient from another provider.: no Brennan MethodistEchocardiogram complete w contrast and 3D if [id number] 19:31:48* Test Item Value Reference Range Interpretation Comments Ao Root Diameter (test code = 1710036864) 3.43 cm AoV Area, Vmax (test code = 7110324035) 2.63 cm2 AoV Area, VTI (test code = 5149827683) 2.68 cm2 AoV Mean PG (test code = 6143392031) 3.82 mmHg AoV Peak PG (test code = 8548749308) 6.11 mmHg AoV Vmax (test code = 3201811818) 1.24 m/s AoV VTI (test code = 4264092026) 0.27 m BSA Miranda (test code = 2087265431) 1.98 m2 BSA (test code = 4042158898) 1.95 m2 IVS,d (test code = 4323933039) 1.39 cm IVS/LVPW,2D (test code = 9737807161) 1.07 Left Atrium Dimension Anterior (test code = 8157768357) 3.11 cm LV,d (test code = 9286460143) 4.26 cm LV EF,2D (test code = 5550764116) 74.14 % LV,s (test code = 2795328141) 2.71 cm LVOT area (test code = 3064893809) 3.53 cm2 LVOT Diam,S (test code = 6113393032) 2.12 cm LVOT Vmax (test code = 0625462206) 0.99 m/s LVOT VTI (test code = 7814079671) 0.22 m LVPWD,d (test code = 5870396518) 1.30 cm PV Pk Grad (test code = 7136562085) 3.54 mmHg PV VMAX (test code = 9883148773) 0.94 m/s MV E A ratio (test code = 2316369261) 0.66 AoV area i VTI BSA [place] (test code = 5028199738) 1.37 cm2/m2 BMI (test code = 4264271193) 25.84 kg/m2 E wave decelartion time (test code = 0858118095) 171.87 msec MV Peak A Martín (test code = 7538140195) 1.19 m/s MV valve area p 1/2 method (test code = 0794279596) 4.41 cm2 MV Peak E Martín (test code = 7100078902) 0.79 m/s MV stenosis pressure 1/2 time (test code = 0145308851) 49.84 ms AV LVOT peak gradient (test code = 1137292131) 3.38 mmHg Ascending aorta (test code = 9031748771) 3.11 cm Ao Root Diameter (test code = 3396541156) 3.43 cm LV SYS VOL (test code = 1806921531) 27.33 ml LV STEPHENSON VOL (test code = 6286808089) 81.17 ml LA area s A4C (test code = 8654988808) 15.96 cm2 LV SI Teich 2D (test code = 2369095798) 27.58 ml/m2 LV SV Teich 2D (test code = 9181058556) 53.84 ml LV Vol s Teich PSAX (test code = 6755966952) 27.33 ml LVOT CI (test code = 7403633678) 2.92 l/min/m2 LVOT CO (test code = 7856306375) 5.71 l/min LVOT HR for LVOT CO (test code = 4455358125) 79.62 bpm LVOT SI (test code = 5730619082) 36.72 ml/m2 BSA [place] (test code = 5778521348) 1.98 m2 AoV Vmn (test code = 5869630414) 0.94 IVS s 2D (test code = 5314959459) 1.32 LV FS Teich 2D (test code = 2490329914) 36.29 MV AE ratio (test code = 4778212312) 1.51 LV FS Cube 2D (test code = 8182194283) 36.29 LVOT Vmn (test code = 9576405410) 0.75 Pt Size (test code = 3741489344) 175.26 Pt Wt (test code = 0085325529) 79.38 Aov area Vmn (test code = 1580814376) 2.59 cm2 LA A_P score P (test code = 9565959879) 0.08 LVOT mean grad (test code = 2608384642) 2.43 mmHg MAX Pred HR (test code = 0640600166) 147.74 85 of MPHR (test code = 9906593865) 125.58 AoV area I VMN bsa (test code = 2553158968) 1.33 cm2/m2 Calc MPHR (test code = 2151304474) 147.74 bpm IVS pct thck PLAX (test code = 7196942891) -5.05 % LV SI Cube 2D (test code = 2657322977) 29.33 ml/m2 LV SV Cube 2D (test code = 4150002463) 57.24 ml LV vol d cube 2D (test code = 3910377679) 77.20 ml LV vol s cube 2D (test code = 2362638210) 19.96 ml LVPW pct thck PLAX (test code = 5710660610) 17.54 % LVPW s PLAX (test code = 0701904542) 1.53 cm MV Decel slope (test code = 8644747445) 4.58 m/s2 Pred Exer Dur R1 (test code = 8066629959) 6.58 Pred METS R1 (test code = 8006880832) 5.31 LA Vol MOD A4C (test code = 0294079411) 41.27 ml Velocity Ratio (V1/V2) (test code = 4689) 0.80 m/s EF (test code = 7462534744) 66.33 % E/A ratio (test code = 2538960727) 0.66 GARETT (test code = GARETT) Left ventricular systolic function is normal. There is mild left ventricular concentric hypertrophy. Left Ventricular ejection fraction is 55 - 60%. Left atrium size is moderately dilated. The mitral valve appears thickened. Mild mitral annular calcification. Spectral Doppler shows impaired relaxation pattern of left ventricular diastolic filling. [facility] MethodistLipid [id number] 06:42:35* Test Item Value Reference Range Interpretation Comments Cholesterol (test code = 2093-3) 185 mg/dL 0-199 Triglycerides (test code = 2571-8) 151 mg/dL 0-149 H HDL cholesterol (test code = 5-9) 38 mg/dL 40-9999 L LDL cholesterol (test code = 9-1) 140 mg/dL 0-99 H Result obtained by direct LDL measurement Lipid panel interpretation (test code = 55811-2) See below Total Cholesterol (mg/dL) LDL Cholesterol (mg/dL) <200 Desirable <100 Optimal 200-239 Borderline-high 100-129 Near or above optimal >=240 High 130-159 Borderline- high 160-189 High >=190 Very highHDL Cholesterol (mg/dL) Triglycerides (mg/dL) <40 Low <150 Normal >=60 High 150-199 Borderline-high 200-499 High >=500 Very high Risk Catergories that modify LDL goals.Risk Catergories LDL goal (mg/dL)CHD and CHD risk equivalent <100 (10-year risk >20%)Multiple (2+) risk factors <130 (10-year risk =<20%)0-1 risk factors <160 (<10-year risk) Defining levels of lipids in metabolic syndromeTriglycerides >=150 mg/dLHDL Cholesterol Men <40 mg/dL Women <50 mg/dL Non-HDL cholesterol is a second target for therapy in personswith high triglycerides (>=200 mg/dL) Lab Interpretation (test code = 69858-0) Abnormal [facility]ocorro [facility] hospitalGram [id number] 18:06:22Gram stain resultModerate WBC'sFew Gram positive cocci in chains Comment: Specimen InformationSpecimen Source: UrineSpecimen Site: Clean catch [facility]ocorro general hospitalMRI Brain Wo Aeszpyhc1021-46-19 13:27:09Hm Interface, Radiology Results 06/11/2019 1:30 PM CSTEXAMINATION: MRI BRAIN WO CONTRASTCLINICAL HISTORY: Neuro deficit(s) subacuteCOMPARISON: March 2019.Technique: Multiplanar and multisequence MRI images of the brain are obtained without the use of ionic intravenous contrast. Sagittal axial and coronal images are obtained. Diffusion weighted sequences are performed. No intravenous contrast was given.Findings:Diffusion weighted images demonstrates no evidence of any acute infarction.The visualized paranasal sinuses are clear. The globes and optic nerves are unremarkable.The posterior fossa does not demonstrate any masses. The jo and midbrain did not demonstrate any masses.The ventricles are symmetrical without any mass effect. There is no evidence of any midline shift. There is no extra-axial fluid collection.The cerebral hemispheres demonstrate no intracranial hemorrhage or mass lesion.Periventricular ischemic white matter changes are present.The sella turcica is not enlarged. Visualized portion of the upper cervical cord demonstrates no abnormality. IMPRESSION:1. No acute intrac ranial abnormalities or mass lesions. 2. There is no parenchymal hemorrhage or m asses.3. Periventricular ischemic white matter changes are present.4. There is n o significant interval change since the prior study from March 2013.[id number] MethodistAnti Xa, ojaxvgxfacxbkf4891-00-50 16:55:54* Test Item Value Reference Range Interpretation Comments Anti Xa, unfractionated (test code = 3274-8) <0.10 0.3-0.7 L Therapeutic Range: 0.30 - 0.70 U/mL Lab Interpretation (test code = 85885-4) Abnormal Amin MethodistCTA Head W Wo Yfhkrmos3110-85-28 16:50:22Hm Interface, Radiology Results Incoming 06/10/2019 4:53 PM CSTEXAMINATION: CT ANGIOGRAM HEAD W WO CONTRASTCLINICAL HISTORY: Stroke. Follow up. Evaluate for artery stenosisCOMPARISON: CT brain from earlier todayTECHNIQUE: Imaging of the intracranial circulation was obtained from the skull base to the vertex during the arterial phase of enhancement. Postprocessing was performed with MIP multip lanar and 3D reconstructed images. CT scans are performed using radiation dose reduction techniques. Technical factors are evaluated and adjusted to ensure nannette ropriate moderation of exposure. 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 This flow in the anterior le ading artery region. There is severe stenosis in the distal right P1 segment and proximal right P2 segment.There is calcified plaque in the azul of the distal vertebral arteries with some beam hardening artifact obscuring details. There ap pears to be moderate stenosis on both sides at the craniovertebral junction. Thi s can be further evaluated with MR angiogram or digital subtraction arteriogram. The basilar artery and distal internal arteries do not show significant focal s tenosis. I do not see definite evidence of an aneurysm or arteriovenous malforma tion.IMPRESSION:Moderate stenosis in the distal bilateral vertebral arteries fro m calcified plaque with some beam hardening artifacts obscuring details. This ca n be further evaluated with MR angiogram if indicated.There is severe stenosis i n the distal right P1 segment and proximal right P2 segment.[id number] Amin MethodistCTA Neck W Wo [id number] 16:15:26Hm Interface, Radiology Results - 06/10/2019 4:18 PM CSTEXAMINATION: CT ANGIOGRAM NECK W WO CONTRAST INCLUDING 3-D MIP RECONSTRUCTED IMAGING.CT IMAGING WAS PERFORMED WITH ITERATIVE RECONSTRUCTION TECHNIQUE AND/OR AUTOMATED EXPOSURE CONTROL TO REDUCE RADIATION DOSE.CLINICAL HISTORY: Stroke follow upCOMPAR SARTHAK: None.FINDINGS: There is no significant abnormality demonstrated in the br achiocephalic vasculature.There are minor atherosclerotic changes at the common carotid artery bifurcations but there is no significant plaque formation or sten osis. Specifically there is no significant stenosis by NASCET criteria. There ar e tortuous looping cervical internal carotid arteries bilaterally.The vertebral arteries are symmetric in size. There is calcific atherosclerotic change with mo derate stenosis in the mid cervical portion of the left vertebral artery. There is also moderate degree of stenosis in the V4 segments bilaterally. There is ath erosclerotic calcification in the proximal left vertebral artery near the origin where there appears to be a moderate degree of stenosis. There is otherwise no definite abnormality demonstrated in the vertebral arteries.IMPRESSION:No signif icant carotid artery stenosis demonstrated.Bilateral vertebral artery stenoses.[facility]-[id number] MethodistCT Stroke Brain Wo Fytkhmgw9521-58-82 14:21:59Hm Interface, Radiology Results Incoming - 06/10/2019 2:25 PM CSTEXAMINATION: CT STROKE BRAIN WO CONTRASTCLINICAL HISTORY: Focal neuro deficit < 6 hrs stroke suspected, Altered level of consciousness (LOC) unexplainedCOMPARISON: CT head 04/23/2019TECHNIQUE: Noncontrast head CT performed using radiation dose reduction techniques. Technical factors are evaluated and adjusted to ensure appropriate moderation of exposure. Automated dose management technology is applied to adjust radiation exposure while achieving a diagnostic quality image. FINDINGS:No evidence of acute intracranial hemorrhage, mass, mass effect, mi dline shift, or acute infarct. Ventricles and sulci are normal in appearance for patient's age. Basal cisterns are clear. Mild chronic microvascular ischemic c hange. Intracranial vascular calcifications are present. Calvarium is intact.Cheng ateral lens extractions. No significant paranasal sinus mucosal thickening. Mast oid air cells are clear.IMPRESSION:1. No CT evidence of acute intracranial abnor mality.Findings were discussed with and acknowledged by ANNIE Grant at 06/10/2019 2:18 PM who verbalized understanding. [id number] PatriciaistInfluenz [id number] 15:06:03* Test Item Value Reference Range Interpretation Comments Influenza antigen (test code = 02043-8) Negative for Influenza A/B antigen. Specimen InformationSpecimen Source: NasopharyngealSpecimen Site: Left Amin [id number] 10:06:00* Test Item Value Reference Range Interpretation Comments GLUBED (test code = GLUBED) 154 mg/dL 74-106 H Performed by certified brake press operator at [facility] Troponin, K-[id number] 08:38:20* Test Item Value Reference Range Interpretation Comments Troponin, I-Stat (test code = 2359) 0.00 ng/mL 0-0.08 0.09 - 1.49 ng/ml May indicate increased risk of acute coronary syndrome. >=1.5 ng/ml Consistent with acute myocardial infarction. The diagnostic value of a single normal or non-diagnostic result is questionable. Serial samples at 2-6 hour intervalsare required to rule out acute myocardial injury. Amin CxvgomekeHHTGZQ5399-70-02 12:43:00* Test Item Value Reference Range Interpretation Comments GLUBED (test code = GLUBED) 124 mg/dL 74-106 H Performed by certified brake press operator [facility] HospitalNotified Nurse~ [id number] 08:30:00* Test Item Value Reference Range Interpretation Comments GLUBED (test code = GLUBED) 81 mg/dL 74-106 N Performed by certified brake press operator at [facility] BASIC METABOLIC [id number] 06:46:00* Test Item Value Reference Range Interpretation Comments SODIUM (test code = NA) 139 mmol/L 136-145 N POTASSIUM (test code = K) 3.6 mmol/L 3.5-5.1 N CHLORIDE (test code = CL) 102.0 mmol/L 98-107 N CARBON DIOXIDE (test code = CO2) 28.0 mmol/L 21-32 N ANION GAP (test code = GAP) 12.6 10-20 N GLUCOSE (test code = GLU) 112 mg/dL 74-106 H BLOOD UREA NITROGEN (test code = BUN) 15 mg/dL 7-18 RESULT VERIFIED BY REPEAT ANALYSIS GLOMERULAR FILTRATION RATE (test code = GFR) 10 mL/min >=60 Estimated GFR by using Modified MDRD formula.Chronic kidney disease is defined as either kidney damageor GFR <60 mL/min/1.73 m2 for >3 months. CREATININE (test code = CREAT) 4.50 mg/dL 0.55-1.02 H Note change in reference range due to change in reagent. BUN/CREATININE RATIO (test code = BUN/CREA) 3.3 10-20 L CALCIUM (test code = CA) 8.8 mg/dL 8.5-10.1 N BASIC METABOLIC [id number] 06:29:00* Test Item Value Reference Range Interpretation Comments SODIUM (test code = NA) 139 mmol/L 136-145 N POTASSIUM (test code = K) 3.6 mmol/L 3.5-5.1 N CHLORIDE (test code = CL) 102.0 mmol/L 98-107 N CARBON DIOXIDE (test code = CO2) mmol/L 21-32 ANION GAP (test code = GAP) 10-20 GLUCOSE (test code = GLU) mg/dL 74-106 BLOOD UREA NITROGEN (test code = BUN) mg/dL 7-18 GLOMERULAR FILTRATION RATE (test code = GFR) mL/min >=60 CREATININE (test code = CREAT) mg/dL 0.55-1.02 BUN/CREATININE RATIO (test code = BUN/CREA) 10-20 CALCIUM (test code = CA) mg/dL 8.5-10.1 [id number] 21:15:00* Test Item Value Reference Range Interpretation Comments GLUBED (test code = GLUBED) 173 mg/dL 74-106 H Performed by certified brake press operator at [facility] [id number] 16:50:00* Test Item Value Reference Range Interpretation Comments GLUBED (test code = GLUBED) 170 mg/dL 74-106 H Performed by certified brake press operator at [facility] [id number] 15:43:00* Test Item Value Reference Range Interpretation Comments GLUBED (test code = GLUBED) 248 mg/dL 74-106 H Performed by certified brake press operator at [facility] [id number] 07:50:00* Test Item Value Reference Range Interpretation Comments GLUBED (test code = GLUBED) 112 mg/dL 74-106 H Performed by certified brake press operator at [facility] BASIC METABOLIC [id number] 07:50:00* Test Item Value Reference Range Interpretation Comments SODIUM (test code = NA) 140 mmol/L 136-145 N POTASSIUM (test code = K) 5.3 mmol/L 3.5-5.1 H CHLORIDE (test code = CL) 107.0 mmol/L 98-107 N CARBON DIOXIDE (test code = CO2) 23.0 mmol/L 21-32 N ANION GAP (test code = GAP) 15.3 10-20 N GLUCOSE (test code = GLU) 110 mg/dL 74-106 H BLOOD UREA NITROGEN (test code = BUN) 28 mg/dL 7-18 H GLOMERULAR FILTRATION RATE (test code = GFR) 7 mL/min >=60 Estimated GFR by using Modified MDRD formula.Chronic kidney disease is defined as either kidney damageor GFR <60 mL/min/1.73 m2 for >3 months. CREATININE (test code = CREAT) 5.90 mg/dL 0.55-1.02 H Note change in reference range due to change in reagent. BUN/CREATININE RATIO (test code = BUN/CREA) 4.8 10-20 L CALCIUM (test code = CA) 8.9 mg/dL 8.5-10.1 N BASIC METABOLIC [id number] 07:44:00* Test Item Value Reference Range Interpretation Comments SODIUM (test code = NA) 140 mmol/L 136-145 N POTASSIUM (test code = K) 5.3 mmol/L 3.5-5.1 H CHLORIDE (test code = CL) 107.0 mmol/L 98-107 N CARBON DIOXIDE (test code = CO2) mmol/L 21-32 ANION GAP (test code = GAP) 10-20 GLUCOSE (test code = GLU) mg/dL 74-106 BLOOD UREA NITROGEN (test code = BUN) mg/dL 7-18 GLOMERULAR FILTRATION RATE (test code = GFR) mL/min >=60 CREATININE (test code = CREAT) mg/dL 0.55-1.02 BUN/CREATININE RATIO (test code = BUN/CREA) 10-20 CALCIUM (test code = CA) mg/dL 8.5-10.1 CBC W/AUTO [id number] 07:30:00* Test Item Value Reference Range Interpretation Comments WHITE BLOOD CELL (test code = WBC) 6.8 K/mm3 4.5-12.5 N RED BLOOD CELL (test code = RBC) 3.73 mill/mm3 3.7-5.2 N HEMOGLOBIN (test code = HGB) 10.6 gram/dL 11.5-15.5 L HEMATOCRIT (test code = HCT) 35.1 % 36.0-46.0 L MEAN CELL VOLUME (test code = MCV) 94.1 fL 80-98 N MEAN CELL HGB (test code = MCH) 28.4 picogram 27.0-33.0 N MEAN CELL HGB CONCETRATION (test code = MCHC) 30.2 gram/dL 33.0-36. 0 L RED CELL DISTRIBUTION WIDTH (test code = RDW) 15.4 % 11.6-16. 2 N RED CELL DISTRIBUTION WIDTH SD (test code = RDW-SD) 53.3 fL 37 .0-51.0 H PLATELET COUNT (test code = PLT) 286 K/mm3 150-450 N MEAN PLATELET VOLUME (test code = MPV) 9.1 fL 6.7-11.0 N NEUTROPHIL % (test code = NT%) 69.3 % 39.0-69.0 H IMMATURE GRANULOCYTE % (test code = IG%) 0.4 % 0.0-5.0 N LYMPHOCYTE % (test code = LY%) 21.1 % 25.0-55.0 L MONOCYTE % (test code = MO%) 7.5 % 0.0-10.0 N EOSINOPHIL % (test code = EO%) 1.6 % 0.0-5.0 N BASOPHIL % (test code = BA%) 0.1 % 0.0-1.0 N NUCLEATED RBC % (test code = NRBC%) 0.0 % 0-0 N NEUTROPHIL # (test code = NT#) 4.68 K/mm3 1.8-7.7 N IMMATURE GRANULOCYTE # (test code = IG#) 0.03 x10 3/uL 0-0.03 N LYMPHOCYTE # (test code = LY#) 1.43 K/mm3 1.0-5.0 N MONOCYTE # (test code = MO#) 0.51 K/mm3 0-0.8 N EOSINOPHIL # (test code = EO#) 0.11 K/mm3 0.0-0.5 N BASOPHIL # (test code = BA#) 0.01 K/mm3 0.0-0.2 N NUCLEATED RBC # (test code = NRBC#) 0.00 K/mm3 0.0-0.1 N [id number] 20:07:00* Test Item Value Reference Range Interpretation Comments GLUBED (test code = GLUBED) 128 mg/dL 74-106 H Performed by certified brake press operator at [facility] [id number] 16:10:00* Test Item Value Reference Range Interpretation Comments GLUBED (test code = GLUBED) 132 mg/dL 74-106 H Performed by certified brake press operator at [facility] [id number] 12:37:00* Test Item Value Reference Range Interpretation Comments GLUBED (test code = GLUBED) 96 mg/dL 74-106 N Performed by certified brake press operator at [facility] [id number] 09:21:00* Test Item Value Reference Range Interpretation Comments GLUBED (test code = GLUBED) 97 mg/dL 74-106 N Performed by certified brake press operator at [facility] [id number] 04:31:00* Test Item Value Reference Range Interpretation Comments GLUBED (test code = GLUBED) 122 mg/dL 74-106 H Performed by certified brake press operator at [facility] [id number] 20:21:00* Test Item Value Reference Range Interpretation Comments GLUBED (test code = GLUBED) 117 mg/dL 74-106 H Performed by certified brake press operator at [facility] [id number] 16:35:00* Test Item Value Reference Range Interpretation Comments GLUBED (test code = GLUBED) 143 mg/dL 74-106 H Performed by certified brake press operator at [facility] [id number] 12:05:00* Test Item Value Reference Range Interpretation Comments GLUBED (test code = GLUBED) 213 mg/dL 74-106 H Performed by certified brake press operator at [facility] BASIC METABOLIC [id number] 07:33:00* Test Item Value Reference Range Interpretation Comments SODIUM (test code = NA) 139 mmol/L 136-145 N POTASSIUM (test code = K) 4.9 mmol/L 3.5-5.1 N CHLORIDE (test code = CL) 107.0 mmol/L 98-107 N CARBON DIOXIDE (test code = CO2) 24.0 mmol/L 21-32 N ANION GAP (test code = GAP) 12.9 10-20 N GLUCOSE (test code = GLU) 152 mg/dL 74-106 H BLOOD UREA NITROGEN (test code = BUN) 39 mg/dL 7-18 H GLOMERULAR FILTRATION RATE (test code = GFR) 7 mL/min >=60 Estimated GFR by using Modified MDRD formula.Chronic kidney disease is defined as either kidney damageor GFR <60 mL/min/1.73 m2 for >3 months. CREATININE (test code = CREAT) 6.00 mg/dL 0.55-1.02 H Note change in reference range due to change in reagent. BUN/CREATININE RATIO (test code = BUN/CREA) 6.5 10-20 L CALCIUM (test code = CA) 8.7 mg/dL 8.5-10.1 N CBC W/AUTO [id number] 07:20:00* Test Item Value Reference Range Interpretation Comments WHITE BLOOD CELL (test code = WBC) 7.1 K/mm3 4.5-12.5 N RED BLOOD CELL (test code = RBC) 3.47 mill/mm3 3.7-5.2 L HEMOGLOBIN (test code = HGB) 10.1 gram/dL 11.5-15.5 L HEMATOCRIT (test code = HCT) 32.5 % 36.0-46.0 L MEAN CELL VOLUME (test code = MCV) 93.7 fL 80-98 N MEAN CELL HGB (test code = MCH) 29.1 picogram 27.0-33.0 N MEAN CELL HGB CONCETRATION (test code = MCHC) 31.1 gram/dL 33.0-36. 0 L RED CELL DISTRIBUTION WIDTH (test code = RDW) 15.1 % 11.6-16. 2 N RED CELL DISTRIBUTION WIDTH SD (test code = RDW-SD) 51.7 fL 37 .0-51.0 H PLATELET COUNT (test code = PLT) 245 K/mm3 150-450 N MEAN PLATELET VOLUME (test code = MPV) 9.3 fL 6.7-11.0 N NEUTROPHIL % (test code = NT%) 53.3 % 39.0-69.0 N IMMATURE GRANULOCYTE % (test code = IG%) 0.4 % 0.0-5.0 N LYMPHOCYTE % (test code = LY%) 34.1 % 25.0-55.0 N MONOCYTE % (test code = MO%) 9.3 % 0.0-10.0 N EOSINOPHIL % (test code = EO%) 2.3 % 0.0-5.0 N BASOPHIL % (test code = BA%) 0.6 % 0.0-1.0 N NUCLEATED RBC % (test code = NRBC%) 0.0 % 0-0 N NEUTROPHIL # (test code = NT#) 3.76 K/mm3 1.8-7.7 N IMMATURE GRANULOCYTE # (test code = IG#) 0.03 x10 3/uL 0-0.03 N LYMPHOCYTE # (test code = LY#) 2.41 K/mm3 1.0-5.0 N MONOCYTE # (test code = MO#) 0.66 K/mm3 0-0.8 N EOSINOPHIL # (test code = EO#) 0.16 K/mm3 0.0-0.5 N BASOPHIL # (test code = BA#) 0.04 K/mm3 0.0-0.2 N NUCLEATED RBC # (test code = NRBC#) 0.00 K/mm3 0.0-0.1 N MANUAL DIFF REQUIRED (test code = MDIFF) NO [id number] 22:53:00* Test Item Value Reference Range Interpretation Comments GLUBED (test code = GLUBED) 240 mg/dL 74-106 H Performed by certified brake press operator at [facility] [id number] 16:43:00* Test Item Value Reference Range Interpretation Comments GLUBED (test code = GLUBED) 136 mg/dL 74-106 H Performed by certified brake press operator at [facility] [id number] 12:15:00* Test Item Value Reference Range Interpretation Comments GLUBED (test code = GLUBED) 157 mg/dL 74-106 H Performed by certified brake press operator at [facility] [id number] 07:11:00* Test Item Value Reference Range Interpretation Comments GLUBED (test code = GLUBED) 91 mg/dL 74-106 N Performed by certified brake press operator at [facility] BASIC METABOLIC [id number] 05:31:00* Test Item Value Reference Range Interpretation Comments SODIUM (test code = NA) 138 mmol/L 136-145 N POTASSIUM (test code = K) 4.7 mmol/L 3.5-5.1 N CHLORIDE (test code = CL) 105.0 mmol/L 98-107 N CARBON DIOXIDE (test code = CO2) 27.0 mmol/L 21-32 N ANION GAP (test code = GAP) 10.7 10-20 N GLUCOSE (test code = GLU) 80 mg/dL 74-106 N BLOOD UREA NITROGEN (test code = BUN) 27 mg/dL 7-18 H RESULT VERIFIED BY REPEAT ANALYSIS GLOMERULAR FILTRATION RATE (test code = GFR) 9 mL/min >=60 Estimated GFR by using Modified MDRD formula.Chronic kidney disease is defined as either kidney damageor GFR <60 mL/min/1.73 m2 for >3 months. CREATININE (test code = CREAT) 4.80 mg/dL 0.55-1.02 H Note change in reference range due to change in reagent. BUN/CREATININE RATIO (test code = BUN/CREA) 5.6 10-20 L CALCIUM (test code = CA) 8.8 mg/dL 8.5-10.1 N BASIC METABOLIC [id number] 05:18:00* Test Item Value Reference Range Interpretation Comments SODIUM (test code = NA) 138 mmol/L 136-145 N POTASSIUM (test code = K) 4.7 mmol/L 3.5-5.1 N CHLORIDE (test code = CL) 105.0 mmol/L 98-107 N CARBON DIOXIDE (test code = CO2) mmol/L 21-32 ANION GAP (test code = GAP) 10-20 GLUCOSE (test code = GLU) mg/dL 74-106 BLOOD UREA NITROGEN (test code = BUN) mg/dL 7-18 GLOMERULAR FILTRATION RATE (test code = GFR) mL/min >=60 CREATININE (test code = CREAT) mg/dL 0.55-1.02 BUN/CREATININE RATIO (test code = BUN/CREA) 10-20 CALCIUM (test code = CA) mg/dL 8.5-10.1 CBC W/AUTO [id number] 05:09:00* Test Item Value Reference Range Interpretation Comments WHITE BLOOD CELL (test code = WBC) 8.7 K/mm3 4.5-12.5 N RED BLOOD CELL (test code = RBC) 3.32 mill/mm3 3.7-5.2 L HEMOGLOBIN (test code = HGB) 9.6 gram/dL 11.5-15.5 L HEMATOCRIT (test code = HCT) 30.8 % 36.0-46.0 L MEAN CELL VOLUME (test code = MCV) 92.8 fL 80-98 N MEAN CELL HGB (test code = MCH) 28.9 picogram 27.0-33.0 N MEAN CELL HGB CONCETRATION (test code = MCHC) 31.2 gram/dL 33.0-36. 0 L RED CELL DISTRIBUTION WIDTH (test code = RDW) 15.1 % 11.6-16. 2 N RED CELL DISTRIBUTION WIDTH SD (test code = RDW-SD) 51.0 fL 37 .0-51.0 N PLATELET COUNT (test code = PLT) 238 K/mm3 150-450 N MEAN PLATELET VOLUME (test code = MPV) 9.3 fL 6.7-11.0 N NEUTROPHIL % (test code = NT%) 66.1 % 39.0-69.0 N IMMATURE GRANULOCYTE % (test code = IG%) 0.3 % 0.0-5.0 N LYMPHOCYTE % (test code = LY%) 24.3 % 25.0-55.0 L MONOCYTE % (test code = MO%) 6.8 % 0.0-10.0 N EOSINOPHIL % (test code = EO%) 2.2 % 0.0-5.0 N BASOPHIL % (test code = BA%) 0.3 % 0.0-1.0 N NUCLEATED RBC % (test code = NRBC%) 0.0 % 0-0 N NEUTROPHIL # (test code = NT#) 5.75 K/mm3 1.8-7.7 N IMMATURE GRANULOCYTE # (test code = IG#) 0.03 x10 3/uL 0-0.03 N LYMPHOCYTE # (test code = LY#) 2.11 K/mm3 1.0-5.0 N MONOCYTE # (test code = MO#) 0.59 K/mm3 0-0.8 N EOSINOPHIL # (test code = EO#) 0.19 K/mm3 0.0-0.5 N BASOPHIL # (test code = BA#) 0.03 K/mm3 0.0-0.2 N NUCLEATED RBC # (test code = NRBC#) 0.00 K/mm3 0.0-0.1 N [id number] 21:35:00* Test Item Value Reference Range Interpretation Comments GLUBED (test code = GLUBED) 210 mg/dL 74-106 H Performed by certified brake press operator at [facility] [id number] 16:16:00* Test Item Value Reference Range Interpretation Comments GLUBED (test code = GLUBED) 181 mg/dL 74-106 H Performed by certified brake press operator at [facility] COMPREHENSIVE METABOLIC [id number] 14:29:00* Test Item Value Reference Range Interpretation Comments SODIUM (test code = NA) 137 mmol/L 136-145 N POTASSIUM (test code = K) 4.1 mmol/L 3.5-5.1 N CHLORIDE (test code = CL) 102.0 mmol/L 98-107 N CARBON DIOXIDE (test code = CO2) 28.0 mmol/L 21-32 N ANION GAP (test code = GAP) 11.1 10-20 N GLUCOSE (test code = GLU) 147 mg/dL 74-106 H BLOOD UREA NITROGEN (test code = BUN) 18 mg/dL 7-18 RESULT VERIFIED BY REPEAT ANALYSIS GLOMERULAR FILTRATION RATE (test code = GFR) 12 mL/min >=60 Estimated GFR by using Modified MDRD formula.Chronic kidney disease is defined as either kidney damageor GFR <60 mL/min/1.73 m2 for >3 months. CREATININE (test code = CREAT) 3.80 mg/dL 0.55-1.02 H Note change in reference range due to change in reagent. BUN/CREATININE RATIO (test code = BUN/CREA) 4.7 10-20 L TOTAL PROTEIN (test code = PROT) 7.1 gram/dL 6.4-8.2 N ALBUMIN (test code = ALB) 3.3 g/dL 3.4-5.0 L GLOBULIN (test code = GLOB) 3.8 gram/dL 2.7-4.2 N ALBUMIN/GLOBULIN RATIO (test code = A/G) 0.9 0.75-1.50 N CALCIUM (test code = CA) 8.5 mg/dL 8.5-10.1 N BILIRUBIN TOTAL (test code = BILT) 0.50 mg/dL 0.0-1.0 N SGOT/AST (test code = AST) 9 IUnit/L 15-37 L SGPT/ALT (test code = ALT) 13 IUnit/L 12-78 N ALKALINE PHOSPHATASE TOTAL (test code = ALKP) 113 IUnit/L 45-117 N Note change in reference range due to change in reagent. [id number] 14:29:00* Test Item Value Reference Range Interpretation Comments PHOSPHORUS (test code = PHOS) 3.1 mg/dL 2.5-4.9 N [id number] 14:29:00* Test Item Value Reference Range Interpretation Comments MAGNESIUM (test code = MAG) 1.8 mg/dL 1.8-2.4 N COMPREHENSIVE METABOLIC [id number] 14:05:00* Test Item Value Reference Range Interpretation Comments SODIUM (test code = NA) 137 mmol/L 136-145 N POTASSIUM (test code = K) 4.1 mmol/L 3.5-5.1 N CHLORIDE (test code = CL) 102.0 mmol/L 98-107 N CARBON DIOXIDE (test code = CO2) mmol/L 21-32 ANION GAP (test code = GAP) 10-20 GLUCOSE (test code = GLU) mg/dL 74-106 BLOOD UREA NITROGEN (test code = BUN) mg/dL 7-18 GLOMERULAR FILTRATION RATE (test code = GFR) mL/min >=60 CREATININE (test code = CREAT) mg/dL 0.55-1.02 BUN/CREATININE RATIO (test code = BUN/CREA) 10-20 TOTAL PROTEIN (test code = PROT) gram/dL 6.4-8.2 ALBUMIN (test code = ALB) g/dL 3.4-5.0 GLOBULIN (test code = GLOB) gram/dL 2.7-4.2 ALBUMIN/GLOBULIN RATIO (test code = A/G) 0.75-1.50 CALCIUM (test code = CA) mg/dL 8.5-10.1 BILIRUBIN TOTAL (test code = BILT) mg/dL 0.0-1.0 SGOT/AST (test code = AST) IUnit/L 15-37 SGPT/ALT (test code = ALT) IUnit/L 12-78 ALKALINE PHOSPHATASE TOTAL (test code = ALKP) IUnit/L 45-117 [id number] 14:05:00* Test Item Value Reference Range Interpretation Comments PHOSPHORUS (test code = PHOS) mg/dL 2.5-4.9 [id number] 14:05:00* Test Item Value Reference Range Interpretation Comments MAGNESIUM (test code = MAG) mg/dL 1.8-2.4 THROMBOPLASTIN TIME [id number] 13:04:00* Test Item Value Reference Range Interpretation Comments THROMBOPLASTIN TIME PARTIAL (test code = PTT) 61.4 seconds 25.0-36. 5 H IS PATIENT ON ANTICOAGULANTS? NCBC W/AUTO [id number] 12:57:00* Test Item Value Reference Range Interpretation Comments WHITE BLOOD CELL (test code = WBC) 6.1 K/mm3 4.5-12.5 N RED BLOOD CELL (test code = RBC) 3.31 mill/mm3 3.7-5.2 L HEMOGLOBIN (test code = HGB) 9.6 gram/dL 11.5-15.5 L HEMATOCRIT (test code = HCT) 30.5 % 36.0-46.0 L MEAN CELL VOLUME (test code = MCV) 92.1 fL 80-98 N MEAN CELL HGB (test code = MCH) 29.0 picogram 27.0-33.0 N MEAN CELL HGB CONCETRATION (test code = MCHC) 31.5 gram/dL 33.0-36. 0 L RED CELL DISTRIBUTION WIDTH (test code = RDW) 14.9 % 11.6-16. 2 N RED CELL DISTRIBUTION WIDTH SD (test code = RDW-SD) 50.0 fL 37 .0-51.0 N PLATELET COUNT (test code = PLT) 217 K/mm3 150-450 N MEAN PLATELET VOLUME (test code = MPV) 9.1 fL 6.7-11.0 N NEUTROPHIL % (test code = NT%) 63.5 % 39.0-69.0 N IMMATURE GRANULOCYTE % (test code = IG%) 0.3 % 0.0-5.0 N LYMPHOCYTE % (test code = LY%) 26.4 % 25.0-55.0 N MONOCYTE % (test code = MO%) 6.1 % 0.0-10.0 N EOSINOPHIL % (test code = EO%) 3.4 % 0.0-5.0 N BASOPHIL % (test code = BA%) 0.3 % 0.0-1.0 N NUCLEATED RBC % (test code = NRBC%) 0.0 % 0-0 N NEUTROPHIL # (test code = NT#) 3.88 K/mm3 1.8-7.7 N IMMATURE GRANULOCYTE # (test code = IG#) 0.02 x10 3/uL 0-0.03 N LYMPHOCYTE # (test code = LY#) 1.61 K/mm3 1.0-5.0 N MONOCYTE # (test code = MO#) 0.37 K/mm3 0-0.8 N EOSINOPHIL # (test code = EO#) 0.21 K/mm3 0.0-0.5 N BASOPHIL # (test code = BA#) 0.02 K/mm3 0.0-0.2 N NUCLEATED RBC # (test code = NRBC#) 0.00 K/mm3 0.0-0.1 N - CT HEAD/BRAIN W/O [id number] 12:56:00 Name: LAYO BOBO [facility] : 1945 Age/S: 74 / F [address] Unit #: [id number] Loc: [place] [address] Phys: Kenya Hansen [employer] Acct: [id number] Dis Date: Status: ADM IN PHONE #: [phone] Exam Date: 05/23/2019 1245 FAX #: [phone] Reason: POSSIBLE STROKE EXAMS: CPT CODE: [id number] CT HEAD/BRAIN W/O CONT [id number] HISTORY: POSSIBLE STROKE TECHNIQUE: Noncontrast 2.[address] of the head. Examination acquired within 24 hours of arrival. Automated exposure control for dose reduction. COMPARISON: Noncontrast CT brain March 10, 2019 FINDINGS: No lacerations or contusions of the scalp or facial soft tissues. Calvarium and skull base are intact. No acute hemorrhage. No intracranial mass, mass effect, or midline shift. No effacement of the sulci or joy-white matter interface. Mild microvascular ischemic changes are present in the white matter, similar to prior exam. No hydrocephalus.. No extra-axial fluid collection. Visualized paranasal sinuses are clear. Mastoid air cells and middle ear cavities are clear. Prior lens extraction bilaterally. IMPRESSION: No acute intracranial process. Mild microvascular ischemic changes of the white matter. Preliminary findings were reported to Basilia VALENCIA by telephone at 12:55 PM May 23, 2019. Location: [facility] at 1256 Reported and signed by: Wes Piedra MD PAGE 1 Signed Report (CONTINUED) Name: LAYO BOBO [facility] : 1945 Age/S: 74 / F [address] Unit #: [id number] Loc: [place], [place] [address] Phys: Kenya Hansen [employer] Acct: [id number] Dis Date: Status: ADM IN PHONE #: [phone] Exam Date: 05/23/2019 1245 FAX #: [phone] Reason: POSSIBLE STROKE EXAMS: CPT CODE: [id number] CT HEAD/BRAIN W/O CONT [id number] <Continued> CC: Tong Bradshaw; Kenya Hansen NP Technologist:Chelsea Araujo RT(R)(CT); . CTDI: DLP: Trnscb Date/Time: 05/23/2019 (5816) [id number] Orig Print D/T: S: 05/23/2019 (3576) PAGE 2 Signed Report GLUBED 2019-05-23 12:27:00* Test Item Value Reference Range Interpretation Comments GLUBED (test code = GLUBED) 128 mg/dL 74-106 H Performed by certified brake press operator at [facility] BASIC METABOLIC [id number] 09:17:00* Test Item Value Reference Range Interpretation Comments SODIUM (test code = NA) 135 mmol/L 136-145 L POTASSIUM (test code = K) 5.1 mmol/L 3.5-5.1 N CHLORIDE (test code = CL) 99.0 mmol/L 98-107 N CARBON DIOXIDE (test code = CO2) 27.0 mmol/L 21-32 N ANION GAP (test code = GAP) 14.1 10-20 N GLUCOSE (test code = GLU) 133 mg/dL 74-106 H BLOOD UREA NITROGEN (test code = BUN) 56 mg/dL 7-18 H GLOMERULAR FILTRATION RATE (test code = GFR) 5 mL/min >=60 Estimated GFR by using Modified MDRD formula.Chronic kidney disease is defined as either kidney damageor GFR <60 mL/min/1.73 m2 for >3 months. CREATININE (test code = CREAT) 8.40 mg/dL 0.55-1.02 H Note change in reference range due to change in reagent. BUN/CREATININE RATIO (test code = BUN/CREA) 6.7 10-20 L CALCIUM (test code = CA) 8.0 mg/dL 8.5-10.1 L CBC W/AUTO [id number] 09:12:00* Test Item Value Reference Range Interpretation Comments WHITE BLOOD CELL (test code = WBC) 7.3 K/mm3 4.5-12.5 N RED BLOOD CELL (test code = RBC) 2.82 mill/mm3 3.7-5.2 L HEMOGLOBIN (test code = HGB) 8.4 gram/dL 11.5-15.5 L HEMATOCRIT (test code = HCT) 26.4 % 36.0-46.0 L MEAN CELL VOLUME (test code = MCV) 93.6 fL 80-98 N MEAN CELL HGB (test code = MCH) 29.8 picogram 27.0-33.0 N MEAN CELL HGB CONCETRATION (test code = MCHC) 31.8 gram/dL 33.0-36. 0 L RED CELL DISTRIBUTION WIDTH (test code = RDW) 15.0 % 11.6-16. 2 N RED CELL DISTRIBUTION WIDTH SD (test code = RDW-SD) 51.1 fL 37 .0-51.0 H PLATELET COUNT (test code = PLT) 207 K/mm3 150-450 N MEAN PLATELET VOLUME (test code = MPV) 9.6 fL 6.7-11.0 N NEUTROPHIL % (test code = NT%) 58.5 % 39.0-69.0 N IMMATURE GRANULOCYTE % (test code = IG%) 0.3 % 0.0-5.0 N LYMPHOCYTE % (test code = LY%) 31.1 % 25.0-55.0 N MONOCYTE % (test code = MO%) 6.3 % 0.0-10.0 N EOSINOPHIL % (test code = EO%) 3.4 % 0.0-5.0 N BASOPHIL % (test code = BA%) 0.4 % 0.0-1.0 N NUCLEATED RBC % (test code = NRBC%) 0.0 % 0-0 N NEUTROPHIL # (test code = NT#) 4.24 K/mm3 1.8-7.7 N IMMATURE GRANULOCYTE # (test code = IG#) 0.02 x10 3/uL 0-0.03 N LYMPHOCYTE # (test code = LY#) 2.26 K/mm3 1.0-5.0 N MONOCYTE # (test code = MO#) 0.46 K/mm3 0-0.8 N EOSINOPHIL # (test code = EO#) 0.25 K/mm3 0.0-0.5 N BASOPHIL # (test code = BA#) 0.03 K/mm3 0.0-0.2 N NUCLEATED RBC # (test code = NRBC#) 0.00 K/mm3 0.0-0.1 N MANUAL DIFF REQUIRED (test code = MDIFF) NO [id number] 07:31:00* Test Item Value Reference Range Interpretation Comments GLUBED (test code = GLUBED) 141 mg/dL 74-106 H Performed by certified brake press operator at [facility] [id number] 20:11:00* Test Item Value Reference Range Interpretation Comments GLUBED (test code = GLUBED) 168 mg/dL 74-106 H Performed by certified brake press operator at [facility] [id number] 16:32:00* Test Item Value Reference Range Interpretation Comments GLUBED (test code = GLUBED) 149 mg/dL 74-106 H Performed by certified brake press operator at [facility] [id number] 12:09:00* Test Item Value Reference Range Interpretation Comments GLUBED (test code = GLUBED) 167 mg/dL 74-106 H Performed by certified brake press operator at [facility] [id number] 07:36:00* Test Item Value Reference Range Interpretation Comments GLUBED (test code = GLUBED) 126 mg/dL 74-106 H Performed by certified brake press operator at [facility] [id number] 19:58:00* Test Item Value Reference Range Interpretation Comments GLUBED (test code = GLUBED) 208 mg/dL 74-106 H Performed by certified brake press operator at [facility] [id number] 16:41:00* Test Item Value Reference Range Interpretation Comments GLUBED (test code = GLUBED) 199 mg/dL 74-106 H Performed by certified brake press operator at [facility] BASIC METABOLIC [id number] 11:56:00* Test Item Value Reference Range Interpretation Comments SODIUM (test code = NA) 137 mmol/L 136-145 N POTASSIUM (test code = K) 4.7 mmol/L 3.5-5.1 N CHLORIDE (test code = CL) 98.0 mmol/L 98-107 N CARBON DIOXIDE (test code = CO2) 31.0 mmol/L 21-32 N ANION GAP (test code = GAP) 12.7 10-20 N GLUCOSE (test code = GLU) 198 mg/dL 74-106 H BLOOD UREA NITROGEN (test code = BUN) 35 mg/dL 7-18 H GLOMERULAR FILTRATION RATE (test code = GFR) 6 mL/min >=60 Estimated GFR by using Modified MDRD formula.Chronic kidney disease is defined as either kidney damageor GFR <60 mL/min/1.73 m2 for >3 months. CREATININE (test code = CREAT) 6.60 mg/dL 0.55-1.02 H Note change in reference range due to change in reagent. BUN/CREATININE RATIO (test code = BUN/CREA) 5.3 10-20 L CALCIUM (test code = CA) 8.2 mg/dL 8.5-10.1 L BASIC METABOLIC [id number] 11:52:00* Test Item Value Reference Range Interpretation Comments SODIUM (test code = NA) 137 mmol/L 136-145 N POTASSIUM (test code = K) 4.7 mmol/L 3.5-5.1 N CHLORIDE (test code = CL) 98.0 mmol/L 98-107 N CARBON DIOXIDE (test code = CO2) mmol/L 21-32 ANION GAP (test code = GAP) 10-20 GLUCOSE (test code = GLU) mg/dL 74-106 BLOOD UREA NITROGEN (test code = BUN) mg/dL 7-18 GLOMERULAR FILTRATION RATE (test code = GFR) mL/min >=60 CREATININE (test code = CREAT) mg/dL 0.55-1.02 BUN/CREATININE RATIO (test code = BUN/CREA) 10-20 CALCIUM (test code = CA) mg/dL 8.5-10.1 [id number] 11:38:00* Test Item Value Reference Range Interpretation Comments GLUBED (test code = GLUBED) 199 mg/dL 74-106 H Performed by certified brake press operator at [facility] CBC W/AUTO [id number] 10:22:00* Test Item Value Reference Range Interpretation Comments WHITE BLOOD CELL (test code = WBC) 8.3 K/mm3 4.5-12.5 N RED BLOOD CELL (test code = RBC) 3.06 mill/mm3 3.7-5.2 L HEMOGLOBIN (test code = HGB) 8.9 gram/dL 11.5-15.5 L HEMATOCRIT (test code = HCT) 29.2 % 36.0-46.0 L MEAN CELL VOLUME (test code = MCV) 95.4 fL 80-98 N MEAN CELL HGB (test code = MCH) 29.1 picogram 27.0-33.0 N MEAN CELL HGB CONCETRATION (test code = MCHC) 30.5 gram/dL 33.0-36. 0 L RED CELL DISTRIBUTION WIDTH (test code = RDW) 15.3 % 11.6-16. 2 N RED CELL DISTRIBUTION WIDTH SD (test code = RDW-SD) 53.1 fL 37 .0-51.0 H PLATELET COUNT (test code = PLT) 205 K/mm3 150-450 N MEAN PLATELET VOLUME (test code = MPV) 9.6 fL 6.7-11.0 N NEUTROPHIL % (test code = NT%) 63.9 % 39.0-69.0 N IMMATURE GRANULOCYTE % (test code = IG%) 0.2 % 0.0-5.0 N LYMPHOCYTE % (test code = LY%) 25.0 % 25.0-55.0 N MONOCYTE % (test code = MO%) 6.4 % 0.0-10.0 N EOSINOPHIL % (test code = EO%) 4.3 % 0.0-5.0 N BASOPHIL % (test code = BA%) 0.2 % 0.0-1.0 N NUCLEATED RBC % (test code = NRBC%) 0.0 % 0-0 N NEUTROPHIL # (test code = NT#) 5.30 K/mm3 1.8-7.7 N IMMATURE GRANULOCYTE # (test code = IG#) 0.02 x10 3/uL 0-0.03 N LYMPHOCYTE # (test code = LY#) 2.08 K/mm3 1.0-5.0 N MONOCYTE # (test code = MO#) 0.53 K/mm3 0-0.8 N EOSINOPHIL # (test code = EO#) 0.36 K/mm3 0.0-0.5 N BASOPHIL # (test code = BA#) 0.02 K/mm3 0.0-0.2 N NUCLEATED RBC # (test code = NRBC#) 0.00 K/mm3 0.0-0.1 N MANUAL DIFF REQUIRED (test code = MDIFF) NO [id number] 08:16:00* Test Item Value Reference Range Interpretation Comments GLUBED (test code = GLUBED) 162 mg/dL 74-106 H Performed by certified brake press operator at [facility] [id number] 21:02:00* Test Item Value Reference Range Interpretation Comments GLUBED (test code = GLUBED) 195 mg/dL 74-106 H Performed by certified brake press operator at [facility] [id number] 16:27:00* Test Item Value Reference Range Interpretation Comments GLUBED (test code = GLUBED) 212 mg/dL 74-106 H Performed by certified brake press operator at [facility] [id number] 10:42:00* Test Item Value Reference Range Interpretation Comments GLUBED (test code = GLUBED) 187 mg/dL 74-106 H Performed by certified brake press operator at [facility] BASIC METABOLIC [id number] 09:43:00* Test Item Value Reference Range Interpretation Comments SODIUM (test code = NA) 138 mmol/L 136-145 N POTASSIUM (test code = K) 4.4 mmol/L 3.5-5.1 N CHLORIDE (test code = CL) 100.0 mmol/L 98-107 N CARBON DIOXIDE (test code = CO2) 29.0 mmol/L 21-32 N ANION GAP (test code = GAP) 13.4 10-20 N GLUCOSE (test code = GLU) 140 mg/dL 74-106 H BLOOD UREA NITROGEN (test code = BUN) 21 mg/dL 7-18 H RESULT VERIFIED BY REPEAT ANALYSIS GLOMERULAR FILTRATION RATE (test code = GFR) 8 mL/min >=60 Estimated GFR by using Modified MDRD formula.Chronic kidney disease is defined as either kidney damageor GFR <60 mL/min/1.73 m2 for >3 months. CREATININE (test code = CREAT) 5.20 mg/dL 0.55-1.02 H Note change in reference range due to change in reagent. BUN/CREATININE RATIO (test code = BUN/CREA) 4.0 10-20 L CALCIUM (test code = CA) 8.4 mg/dL 8.5-10.1 L CBC W/O [id number] 08:40:00* Test Item Value Reference Range Interpretation Comments WHITE BLOOD CELL (test code = WBC) 7.9 K/mm3 4.5-12.5 N RED BLOOD CELL (test code = RBC) 2.95 mill/mm3 3.7-5.2 L HEMOGLOBIN (test code = HGB) 8.7 gram/dL 11.5-15.5 L HEMATOCRIT (test code = HCT) 28.5 % 36.0-46.0 L MEAN CELL VOLUME (test code = MCV) 96.6 fL 80-98 N MEAN CELL HGB (test code = MCH) 29.5 picogram 27.0-33.0 N MEAN CELL HGB CONCETRATION (test code = MCHC) 30.5 gram/dL 33.0-36. 0 L RED CELL DISTRIBUTION WIDTH (test code = RDW) 16.0 % 11.6-16. 2 N PLATELET COUNT (test code = PLT) 221 K/mm3 150-450 N MEAN PLATELET VOLUME (test code = MPV) 9.4 fL 6.7-11.0 N [id number] 07:37:00* Test Item Value Reference Range Interpretation Comments GLUBED (test code = GLUBED) 137 mg/dL 74-106 H Performed by certified brake press operator at [facility] [id number] 20:42:00* Test Item Value Reference Range Interpretation Comments GLUBED (test code = GLUBED) 168 mg/dL 74-106 H Performed by certified brake press operator at [facility] [id number] 17:12:00* Test Item Value Reference Range Interpretation Comments GLUBED (test code = GLUBED) 171 mg/dL 74-106 H Performed by certified brake press operator at [facility] AG HEPAT B [id number] 11:41:00* Test Item Value Reference Range Interpretation Comments AG HEPAT B SURF (test code = HBSAG) Nonreactive Index Nonreactive RENAL FUNCTION [id number] 11:06:00* Test Item Value Reference Range Interpretation Comments SODIUM (test code = NA) 137 mmol/L 136-145 N POTASSIUM (test code = K) 4.8 mmol/L 3.5-5.1 N CHLORIDE (test code = CL) 98.0 mmol/L 98-107 N CARBON DIOXIDE (test code = CO2) 27.0 mmol/L 21-32 N ANION GAP (test code = GAP) 16.8 10-20 N GLUCOSE (test code = GLU) 124 mg/dL 74-106 H BLOOD UREA NITROGEN (test code = BUN) 32 mg/dL 7-18 H CREATININE (test code = CREAT) 6.80 mg/dL 0.55-1.02 H Note change in reference range due to change in reagent. ALBUMIN (test code = ALB) 3.1 g/dL 3.4-5.0 L CALCIUM (test code = CA) 8.6 mg/dL 8.5-10.1 N PHOSPHORUS (test code = PHOS) 6.2 mg/dL 2.5-4.9 H CBC W/O [id number] 10:33:00* Test Item Value Reference Range Interpretation Comments WHITE BLOOD CELL (test code = WBC) 9.2 K/mm3 4.5-12.5 N RED BLOOD CELL (test code = RBC) 2.90 mill/mm3 3.7-5.2 L HEMOGLOBIN (test code = HGB) 8.7 gram/dL 11.5-15.5 L HEMATOCRIT (test code = HCT) 27.3 % 36.0-46.0 L MEAN CELL VOLUME (test code = MCV) 94.1 fL 80-98 N MEAN CELL HGB (test code = MCH) 30.0 picogram 27.0-33.0 N MEAN CELL HGB CONCETRATION (test code = MCHC) 31.9 gram/dL 33.0-36. 0 L RED CELL DISTRIBUTION WIDTH (test code = RDW) 15.9 % 11.6-16. 2 N PLATELET COUNT (test code = PLT) 241 K/mm3 150-450 N MEAN PLATELET VOLUME (test code = MPV) 9.8 fL 6.7-11.0 N [id number] 07:51:00* Test Item Value Reference Range Interpretation Comments GLUBED (test code = GLUBED) 103 mg/dL 74-106 N Performed by certified brake press operator at [facility] [id number] 23:21:00* Test Item Value Reference Range Interpretation Comments TROPONIN-I (test code = TROPI) <0.015 ng/mL 0-0.045 N COMMENTS TO FLEX O WRITER OPERATOR: COLLECT 3 HOURS AFTER PREVIOUS [id number] 20:35:00* Test Item Value Reference Range Interpretation Comments GLUBED (test code = GLUBED) 253 mg/dL 74-106 H Performed by certified brake press operator at [facility] [id number] 19:34:00* Test Item Value Reference Range Interpretation Comments TROPONIN-I (test code = TROPI) <0.015 ng/mL 0-0.045 N COMMENTS TO FLEX O WRITER OPERATOR: COLLECT 3 HOURS AFTER PREVIOUS SAMPLEBASIC METABOLIC [id number] 15:06:00* Test Item Value Reference Range Interpretation Comments SODIUM (test code = NA) 136 mmol/L 136-145 N POTASSIUM (test code = K) 5.2 mmol/L 3.5-5.1 H CHLORIDE (test code = CL) 100.0 mmol/L 98-107 N CARBON DIOXIDE (test code = CO2) 24.0 mmol/L 21-32 N ANION GAP (test code = GAP) 17.2 10-20 N GLUCOSE (test code = GLU) 326 mg/dL 74-106 H BLOOD UREA NITROGEN (test code = BUN) 28 mg/dL 7-18 H GLOMERULAR FILTRATION RATE (test code = GFR) 7 mL/min >=60 Estimated GFR by using Modified MDRD formula.Chronic kidney disease is defined as either kidney damageor GFR <60 mL/min/1.73 m2 for >3 months. CREATININE (test code = CREAT) 5.70 mg/dL 0.55-1.02 H Note change in reference range due to change in reagent. BUN/CREATININE RATIO (test code = BUN/CREA) 4.9 10-20 L CALCIUM (test code = CA) 8.7 mg/dL 8.5-10.1 N HEPATIC FUNCTION [id number] 15:06:00* Test Item Value Reference Range Interpretation Comments TOTAL PROTEIN (test code = PROT) 7.0 gram/dL 6.4-8.2 N ALBUMIN (test code = ALB) 3.0 g/dL 3.4-5.0 L GLOBULIN (test code = GLOB) 4.0 gram/dL 2.7-4.2 N ALBUMIN/GLOBULIN RATIO (test code = A/G) 0.8 0.75-1.50 N BILIRUBIN TOTAL (test code = BILT) 0.40 mg/dL 0.0-1.0 N BILIRUBIN DIRECT (test code = BILD) < 0.05 mg/dL 0.0-0.20 N SGOT/AST (test code = AST) 21 IUnit/L 15-37 N SGPT/ALT (test code = ALT) 13 IUnit/L 12-78 N ALKALINE PHOSPHATASE TOTAL (test code = ALKP) 107 IUnit/L 45-117 N Note change in reference range due to change in reagent. [id number] 15:06:00* Test Item Value Reference Range Interpretation Comments LIPASE (test code = LIP) 132 U/L 73.0-393.0 N [id number] 15:06:00* Test Item Value Reference Range Interpretation Comments MAGNESIUM (test code = MAG) 2.1 mg/dL 1.8-2.4 N [id number] 15:06:00* Test Item Value Reference Range Interpretation Comments TROPONIN-I (test code = TROPI) <0.015 ng/mL 0-0.045 N BASIC METABOLIC [id number] 15:02:00* Test Item Value Reference Range Interpretation Comments SODIUM (test code = NA) 136 mmol/L 136-145 N POTASSIUM (test code = K) 5.2 mmol/L 3.5-5.1 H CHLORIDE (test code = CL) 100.0 mmol/L 98-107 N CARBON DIOXIDE (test code = CO2) mmol/L 21-32 ANION GAP (test code = GAP) 10-20 GLUCOSE (test code = GLU) mg/dL 74-106 BLOOD UREA NITROGEN (test code = BUN) mg/dL 7-18 GLOMERULAR FILTRATION RATE (test code = GFR) mL/min >=60 CREATININE (test code = CREAT) mg/dL 0.55-1.02 BUN/CREATININE RATIO (test code = BUN/CREA) 10-20 CALCIUM (test code = CA) mg/dL 8.5-10.1 HEPATIC FUNCTION [id number] 15:02:00* Test Item Value Reference Range Interpretation Comments TOTAL PROTEIN (test code = PROT) gram/dL 6.4-8.2 ALBUMIN (test code = ALB) g/dL 3.4-5.0 GLOBULIN (test code = GLOB) gram/dL 2.7-4.2 ALBUMIN/GLOBULIN RATIO (test code = A/G) 0.75-1.50 BILIRUBIN TOTAL (test code = BILT) mg/dL 0.0-1.0 BILIRUBIN DIRECT (test code = BILD) mg/dL 0.0-0.20 SGOT/AST (test code = AST) IUnit/L 15-37 SGPT/ALT (test code = ALT) IUnit/L 12-78 ALKALINE PHOSPHATASE TOTAL (test code = ALKP) IUnit/L 45-117 [id number] 15:02:00* Test Item Value Reference Range Interpretation Comments LIPASE (test code = LIP) U/L 73.0-393.0 [id number] 15:02:00* Test Item Value Reference Range Interpretation Comments MAGNESIUM (test code = MAG) mg/dL 1.8-2.4 [id number] 15:02:00* Test Item Value Reference Range Interpretation Comments TROPONIN-I (test code = TROPI) ng/mL 0-0.045 PROTHROMBIN [id number] 15:01:00* Test Item Value Reference Range Interpretation Comments PROTHROMBIN TIME PATIENT (test code = PTP) 15.2 seconds 9.0-14.0 H INTERNATIONAL NORMAL RATIO (test code = INR) 1.3 0.8-1.2 H The therapeutic range for oral anticoagulant therapy formost indications is an international normalized ratio (INR)of between 2.0 and 3.0. The recommended therapeutic INRrange for various clinical situations is listed below: Clinical Situation INR range Pulmonary e mbolism treatment (2.0-3.0)Venous thrombosis treatmentVenous thrombosis prophylaxis (high risk surgery)Prevention of systemic embolism from: Acute myocardial infarction Valvular heart disease Atrial fibrillation Mechanical prosthetic heart valves (2.5-3.5) IS PATIENT ON ANTICOAGULANTS? NTHROMBOPLASTIN TIME [id number] 15:01:00* Test Item Value Reference Range Interpretation Comments THROMBOPLASTIN TIME PARTIAL (test code = PTT) 31.2 seconds 25.0-36. 5 N IS PATIENT ON ANTICOAGULANTS? N- XR CHEST 1 [id number] 14:52:00 FAX: Tong Balbuena MD [employer]: B St: REG FAX: Baylee Marino [phone] Name: LAYO BOBO [facility] : 1945 Age/S: 74/F [address] Unit #: [id number] Loc: [place] [address] Phys: Baylee Cerrato MD Acct: [id number] Dis Date: Status: REG ER PHONE #: [phone] Exam Date: 05/18/2019 1423 FAX #: [phone] Reason: CHEST PAIN EXAMS: CPT CODE: [id number] XR CHEST 1 V 77349 EXAM: Chest x-ray, one view; INFORMATION:; FINDINGS: The heart is moderately enlarged. It obscures the portions of the left lower lobe. Increased retrocardiac densities probably due to atelectatic changes of the left lower lobe; infiltrate is less likely. Pleural opacification above the left costophrenic angle which is suspi cious for an effusion. The remainder the lungs is clear. Aortic calc ification; status post median sternotomy. Well-positioned right IJ tunnele d hemodialysis catheter; its tip is in the right atrium. I MPRESSION: 1. Mild cardiomegaly. 2. Atelectatic changes of the l eft lower lobe; an infiltrate is less likely. 3. Suspicion of a left pleural effusion. Location code: [facility] * * at 1452 Reported and signed by: Magdiel Rose M.D. CC: Tong Bradshaw; Baylee Cerrato MD Technologist: Neelima Simmons(R); BRINA KC (R) Trnscrd Date/Time/By: 05/18/2019 (0836) : By: MicheletGRW Orig Print D/T: S: 05/18/2019 (7885) PAGE 1 Signed Report CBC W/O [id number] 14:47:00* Test Item Value Reference Range Interpretation Comments WHITE BLOOD CELL (test code = WBC) 12.7 K/mm3 4.5-12.5 H RED BLOOD CELL (test code = RBC) 3.06 mill/mm3 3.7-5.2 L HEMOGLOBIN (test code = HGB) 9.2 gram/dL 11.5-15.5 L HEMATOCRIT (test code = HCT) 29.7 % 36.0-46.0 L MEAN CELL VOLUME (test code = MCV) 97.1 fL 80-98 N MEAN CELL HGB (test code = MCH) 30.1 picogram 27.0-33.0 N MEAN CELL HGB CONCETRATION (test code = MCHC) 31.0 gram/dL 33.0-36. 0 L RED CELL DISTRIBUTION WIDTH (test code = RDW) 15.9 % 11.6-16. 2 N PLATELET COUNT (test code = PLT) 252 K/mm3 150-450 N MEAN PLATELET VOLUME (test code = MPV) 10.5 fL 6.7-11.0 N Alcohol level, [id number] 19:13:44* Test Item Value Reference Range Interpretation Comments Alcohol percent (test code = 5643-2) None Detected % Normal None DetectedLegal Intoxication in [place] 80 mg/dL (0.08%)Toxic Concentration 200 mg/dL (0.2%)Potentially Fatal 350-500 mg/dL (0.35%-0.5%) [facility] and 3D if [id number] 10:37:00* Test Item Value Reference Range Interpretation Comments Ao Root Diameter (test code = 7752268528) 2.88 cm AoV Area, Vmax (test code = 8001224249) 2.31 cm2 AoV Area, VTI (test code = 6075838356) 2.44 cm2 AoV Mean PG (test code = 3801917028) 2.59 mmHg AoV Peak PG (test code = 9821036944) 4.53 mmHg AoV Vmax (test code = 9608152013) 1.09 m/s AoV VTI (test code = 7333275422) 0.21 m BSA Miranda (test code = 9869287423) 1.94 m2 BSA (test code = 1498923401) 1.91 m2 IVS,d (test code = 3052960163) 1.35 cm IVS/LVPW,2D (test code = 5950272437) 1.45 Left Atrium Dimension Anterior (test code = 1375842568) 2.53 cm LV,d (test code = 6292424016) 4.13 cm LV EF,2D (test code = 1180238272) 64.79 % LV,s (test code = 7067681630) 3.07 cm LVOT area (test code = 0641327077) 2.95 cm2 LVOT Diam,S (test code = 7940861269) 1.94 cm LVOT Vmax (test code = 0022650791) 0.86 m/s LVOT VTI (test code = 3799881601) 0.17 m LVPWD,d (test code = 9497793276) 0.93 cm MV E A ratio (test code = 7451917916) 0.65 AoV area i VTI BSA [place] (test code = 6829608365) 1.28 cm2/m2 BMI (test code = 4181225056) 25.85 kg/m2 E wave decelartion time (test code = 3180891971) 2.87 msec MV Peak A Martín (test code = 4192494945) 0.97 m/s MV valve area p 1/2 method (test code = 0411047341) 5.15 cm2 MV Peak E Martín (test code = 4106010540) 0.55 m/s MV stenosis pressure 1/2 time (test code = 9376309073) 42.70 ms AV LVOT peak gradient (test code = 9363015439) 2.74 mmHg Ascending aorta (test code = 3610055311) 3.07 cm Ao Root Diameter (test code = 0525735279) 2.88 cm LV SYS VOL (test code = 7293836885) 36.89 ml LV STEPHENSON VOL (test code = 8830676100) 84.93 ml LV SI Teich 2D (test code = 8418254785) 25.19 ml/m2 LV SV Teich 2D (test code = 9489830589) 48.05 ml LV Vol s Teich PSAX (test code = 1676373947) 36.89 ml LVOT CI (test code = 2101420037) 1.94 l/min/m2 LVOT CO (test code = 7117091333) 3.70 l/min LVOT HR for LVOT CO (test code = 8574016990) 76.55 bpm LVOT SI (test code = 1636622441) 25.37 ml/m2 BSA Haycock (test code = 7392781665) 1.94 m2 AoV Vmn (test code = 7534137355) 0.75 IVS s 2D (test code = 6649162181) 1.41 LV FS Teich 2D (test code = 3084907967) 29.38 MV AE ratio (test code = 9156518498) 1.54 LV FS Cube 2D (test code = 8457778704) 29.38 LVOT Vmn (test code = 5972421407) 0.71 Pt Size (test code = 7343533027) 172.72 Pt Wt (test code = 9139955530) 77.11 Aov area Vmn (test code = 0999406221) 2.78 cm2 LA A_P score P (test code = 2346042760) -1.11 LVOT mean grad (test code = 3365968346) 2.13 mmHg MAX Pred HR (test code = 6078606545) 147.94 85 of MPHR (test code = 8078502892) 125.75 AoV area I VMN bsa (test code = 1687339539) 1.46 cm2/m2 Calc MPHR (test code = 4181121674) 147.94 bpm IVS pct thck PLAX (test code = 0676289007) 5.89 % LV SI Cube 2D (test code = 4503473910) 27.78 ml/m2 LV SV Cube 2D (test code = 2070821694) 52.99 ml LV vol d cube 2D (test code = 5765670510) 81.79 ml LV vol s cube 2D (test code = 3742216664) 28.80 ml LVPW pct thck PLAX (test code = 0632192729) 33.78 % LVPW s PLAX (test code = 3374602993) 1.23 cm MV Decel slope (test code = 3067389126) 193.18 m/s2 Pred Exer Dur R1 (test code = 8569560920) 6.60 Pred METS R1 (test code = 6417876533) 5.33 Velocity Ratio (V1/V2) (test code = 4689) 0.79 m/s EF (test code = 4706940994) 56.56 % E/A ratio (test code = 2720260176) 0.57 GARETT (test code = GARETT) There is borderline left ventricular concentric hypertrophy. Left Ventricular ejection fraction is 60 - 65%. Spectral Doppler shows impaired relaxation pattern of left ventricular diastolic filli ng. The mitral valve appears thickened and calcified. [facility] [id number] 09:30:44* Test Item Value Reference Range Interpretation Comments WBC (test code = 18574-8) 7.5 4.2- 11.0 k/uL RBC (test code = 08872-5) 2.94 m/uL 4.04-5.86 L HGB (test code = 718-7) 8.7 g/dL 11.5-15.3 L HCT (test code = 4544-3) 27.5 % 34-45 L MCV (test code = 787-2) 93.5 fL 80-98 MCH (test code = 785-6) 29.6 pg 27-34 MCHC (test code = 786-4) 31.6 g/dL 31.5-36.5 RDW - SD (test code = 81659-3) 45.9 fL 37-51 MPV (test code = 73033-5) 9.6 fL 7.4-10.4 Platelet count (test code = 17576-1) 242 150- 400 k/uL Nucleated RBC (test code = 48825-8) 0.00 /100 WBC Lab Interpretation (test code = 99471-2) Abnormal [facility] [id number] 10:59:43Alexander Farr MD 04/06/2019 11:01 AMPeripheral BlockDate/Time: 04/06/2019 10:50 AMPerformed by: Alexander Farr MDAuthorized by: Alexander Farr MD Patient Location: Pre-opStart Time: 04/06/2019 10:45 AMEnd Time: 04/06/2019 10:50 AMReason for Block: primary anesthetic Staff: Anesthesiologist: Alexander Farr MD Performed by: AnesthesiologistPreprocedure: patient identified, IV checked, site and side verified, risks and benefits discussed, procedure verified, surgical consent complete, patient position confirmed, monitors and equipment checked, pre-op evaluation complete, site m arked and coagulation status reviewed Time Out Performed: 04/06/2019 10:50 AMP eripheral Nerve Block: Patient Position: Supine Prep: ChloraPrep Monitori ng: Blood pressure monitoring, continuous pulse oximetry and heart rateBlock Ty pe: SupraclavicularLaterality: LeftInjection Technique: Single injectionProce dures: ultrasound guided Ultrasound documentation: Images saved on hard diskLo moise Infiltration (See MAR for details): LidocaineNeedle: Needle Type: Pajunk Needle Gauge: 22 G Needle Length: 8 cmAssessment: Injection Assessment: Visualized needle/local anesthetic surrounding nerve, visualized pertinent vascu lar structures and nerves, needle tip visualized at all times during injection o f medication, no symptoms of intraneural/intravenous injection and intermittent aspiration during local anesthetic administration Paresthesia Pain: None Hear t Rate Change: No Slow Fractionated Injection: Yes Block outcome: No appa rent complications, patient comfortable and patient tolerated procedure wellMedi cations AdministeredRopivacaine 0.5 % PF (mL), 20 mL [facility] complete w contrast and 3D if [id number] 21:06:35* Test Item Value Reference Range Interpretation Comments Ao Root Diameter (test code = 8540603567) 3.74 cm AoV Area, Vmax (test code = 3533240347) 2.97 cm2 AoV Area, VTI (test code = 2329477336) 2.93 cm2 AoV Mean PG (test code = 6897315396) 4.34 mmHg AoV Peak PG (test code = 0719401759) 6.40 mmHg AoV Vmax (test code = 2770262517) 1.30 m/s AoV VTI (test code = 3416270481) 0.33 m BSA Miranda (test code = 8232115364) 1.99 m2 BSA (test code = 5057684924) 1.96 m2 IVS,d (test code = 3571340593) 1.63 cm IVS/LVPW,2D (test code = 0942446206) 1.23 Left Atrium Dimension Anterior (test code = 8769502134) 3.62 cm LV,d (test code = 1015664387) 4.27 cm LV EF,2D (test code = 1163836096) 77.48 % LV,s (test code = 3486146024) 2.60 cm LVOT area (test code = 8306770110) 3.40 cm2 LVOT Diam,S (test code = 7623874844) 2.08 cm LVOT Vmax (test code = 4837114324) 1.14 m/s LVOT VTI (test code = 5872459079) 0.27 m LVPWD,d (test code = 6868551578) 1.33 cm PV Pk Grad (test code = 3377705849) 3.88 mmHg PV VMAX (test code = 9159586805) 0.98 m/s TR Vpeak (test code = 2318308848) 1.01 mm/s MV E A ratio (test code = 1854406364) 0.84 TR pk grad (test code = 5876469607) 4.06 mmHg AoV area i VTI BSA Hilaria (test code = 7936914289) 1.50 cm2/m2 BMI (test code = 9838065336) 25.99 kg/m2 E wave decelartion time (test code = 0535776718) 257.64 msec IVRT (test code = 4701901135) 74.22 msec MV Peak A Martín (test code = 4490929036) 1.17 m/s MV valve area p 1/2 method (test code = 4144366390) 2.94 cm2 MV Peak E Martín (test code = 5767049504) 0.97 m/s MV stenosis pressure 1/2 time (test code = 9016922276) 74.72 ms AV LVOT peak gradient (test code = 0025622711) 4.93 mmHg Ascending aorta (test code = 4488511441) 3.55 cm Ao Root Diameter (test code = 6724203534) 3.74 cm MV mean gradient (test code = 3712539888) 2.94 mmHg LV SYS VOL (test code = 5620100188) 24.52 ml LV STEPHENSON VOL (test code = 3189367245) 81.59 ml LV SI Teich 2D (test code = 1272336586) 29.17 ml/m2 LV SV Teich 2D (test code = 1344314010) 57.07 ml LV Vol s Teich PSAX (test code = 0297870936) 24.52 ml LVOT SI (test code = 4485331157) 46.12 ml/m2 MR peak grad (test code = 6208185383) 7.50 mmHg MV Vmax (test code = 5733949892) 1.37 m MV VTI Tips (test code = 3852860386) 0.33 m BSA Haycock (test code = 4352279637) 1.98 m2 AoV Vmn (test code = 1184598581) 0.99 IVS s 2D (test code = 3847001460) 1.76 LV FS Teich 2D (test code = 5055663434) 39.16 MV AE ratio (test code = 5067397888) 1.20 LV FS Cube 2D (test code = 6358143076) 39.16 LVOT Vmn (test code = 6827833131) 0.83 Pt Size (test code = 1902112398) 175.26 Pt Wt (test code = 9179440875) 79.83 Aov area Vmn (test code = 2215509693) 2.99 cm2 LA A_P score P (test code = 5058424644) 1.13 LVOT mean grad (test code = 6606257559) 3.12 mmHg MAX Pred HR (test code = 0873922358) 147.97 85 of MPHR (test code = 8586521314) 125.78 AoV area I VMN bsa (test code = 7678516752) 1.53 cm2/m2 Calc MPHR (test code = 6054657932) 147.97 bpm IVS pct thck PLAX (test code = 7015789258) 8.14 % LV SI Cube 2D (test code = 8435654586) 30.78 ml/m2 LV SV Cube 2D (test code = 0585430537) 60.21 ml LV vol d cube 2D (test code = 7416690963) 77.71 ml LV vol s cube 2D (test code = 6281736773) 17.50 ml LVPW pct thck PLAX (test code = 9428798257) 37.79 % LVPW s PLAX (test code = 0022737160) 1.84 cm MV Decel slope (test code = 6430072092) 3.75 m/s2 Pred Exer Dur R1 (test code = 5363040929) 6.60 Pred METS R1 (test code = 1749068220) 5.34 LA Vol MOD A4C (test code = 9413972992) 61.63 ml Velocity Ratio (V1/V2) (test code = 4689) 0.88 m/s EF (test code = 9518058882) 69.95 % E/A ratio (test code = 5131442008) 0.83 GARETT (test code = GARETT) Left ventricular systolic function is normal. Left Ventricular ejection fraction is 60 - 65%. There is moderate left ventricular concentric hypertrophy. Spectral Doppler shows impaired relaxation pattern of left ventricular diastolic filling. Global right ventricle systolic function is mildly reduced. Left atrium size is mildly dilated. There is severe sclerosis of the aortic valve leaflets. The mitral valve appears thickened and calcified. [facility] [id number] 09:46:09Hm Interface, Radiology Results 04/04/2019 9:49 AM CDTPerforming Rad iologist:Shon Rodriguez MD Assistants: None. Anesthesia Type:Moderate sedation was administered by the procedure nurse and monitored intraservice bbee-ul-dooc by the procedure physician for 6 minutes. Lidocaine 1% was used for local anestheti c. Pre Procedure Diagnosis:tunneled dialysis catheter placement Post Procedure D iagnosis:Status post tunneled right internal jugular vein hemodialysis catheter placement. Procedure:Placement of a tunneled right internal jugular vein hemodia lysis catheter. Technique:Written informed consent was obtained prior to the pro cedure. All elements of maximal sterile barrier technique were followed. The pat ient's right neck and upper chest were sterilely prepared and draped in the rout ine manner. Lidocaine 1% was used for local anesthetic. Using real-time ultrasou nd guidance, a 21-gauge micropuncture needle was advanced successfully into the right internal jugular vein. A 0.018 inch guidewire was advanced centrally throu gh the needle under fluoroscopy. The needle was removed and a micropuncture grant th system was then placed. Under ultrasound guidance, documentation of vessel pa tency, needle access with permanent recording, and reporting are performed follo wed by placement of a sheath in the right internal jugular vein. The inner dilat or and guidewire were then removed, and a 0.035 inch wire was advanced through t he micropuncture sheath and successfully into the inferior vena cava. The right infraclavicular fossa was anesthetized with lidocaine 1%. A skin incision was ma de, and a tunneling device was used to pass the tunneled hemodialysis catheter f rom the skin entry site to the venotomy site. Attention was then returned to the venotomy site. The tract was then sequentially dilated, and a 23 cm long tip to cuff [employer] tunneled hemodialysis catheter was then deployed through a peel- away sheath. The catheter tip was placed in the right atrium under fluoroscopic guidance. All ports were tested and demonstrate adequate flow. The catheter was secured to the skin using 2-0 Ethilon suture. The small venotomy incision was cl osed with 3-0 Vicryl suture and Dermabond. The patient tolerated the procedure w ell. FluoroscopyKa,r = 2 mGyComplications:None. Specimens Removed:None. Estimate d Blood Loss:Less than 2 mL. Blood/Blood Products Administered:None. Grafts/Impl ants:As described in the above report. Impression: Successful fluoroscopic-guide d placement of a 23 cm long tip to cuff GlidePath tunneled hemodialysis catheter via the right internal jugular vein. The catheter tip lies in the right atrium and is ready for use.[facility] [place] CITYJ-[id number] Health Harris [facility] [place] Tunneled Dialysis Catheter [id number] 09:45:49Hm Interface, Radiology Results Incoming - 04/04/2019 9:48 AM CDTPerforming Radiologist:Shon Rodriguez MD Assistants: None. Anesthesia Type:Moderate sedation was administered by the procedure nurse and monitored intraservice gogr-dp-jauv by the procedure physician for 6 minutes. Lidocaine 1% was used for local anesthetic. Pre Procedure Diagnosis:tunneled dialysis catheter placement Post Procedure Diagnosis:Status post tunneled right internal jugular vein hemodialysis catheter placement. Procedure:Placement of a tunneled right internal jugular vein hemodialysis catheter. Technique:Written informed consent was obtained prior to the [...] with lidocaine 1%. A skin incision was ma de, and a tunneling device was used to pass the tunneled hemodialysis catheter f rom the skin entry site to the venotomy site. Attention was then returned to the venotomy site. The tract was then sequentially dilated, and a 23 cm long tip to cuff GlidePath tunneled hemodialysis catheter was then deployed through a peel- away sheath. The catheter tip was placed in the right atrium under fluoroscopic guidance. All ports were tested and demonstrate adequate flow. The catheter was secured to the skin using 2-0 Ethilon suture. The small venotomy incision was cl osed with 3-0 Vicryl suture and Dermabond. The patient tolerated the procedure w ell. FluoroscopyKa,r = 2 mGyComplications:None. Specimens Removed:None. Estimate d Blood Loss:Less than 2 mL. Blood/Blood Products Administered:None. Grafts/Impl ants:As described in the above report. Impression: Successful fluoroscopic-guide d placement of a 23 cm long tip to cuff GlidePath tunneled hemodialysis catheter via the right internal jugular vein. The catheter tip lies in the right atrium and is ready for use.[facility] [place] CITYJ-[id number] MethodistUS Duplex Limited Left 2019-04-03 16:17:43Hm Interface, Radiology Results 04/03/2019 4:20 PM CDTExam:Limited left upper extremity duplex ultrasound.INDICATION:Left upper extremity arterial venous fistula.COMPARISON:None.TECHNIQUE:Multiple grayscale, color Doppler, and spectral Doppler images of the left upper extremity arterial venous fistula were obtained.FINDINGS:Brachial images demonstrate left brachial- transposed basilic arteriovenous fistula. The fistula measures greater [...] This is greater than recommended by KDOQI guidelines.Vessel: Peak systolic velocity (centimeters per second), volume flow (milliliters per minute) common waveformBrachial artery: 23.1, not measured, monophasic (an expected post arteriovenous fistula creation findingArterial venous fistula:Anastomosis: 168, 1121, monophasic with systolic upstrokePeripheral: 110.1, 1067, monophasic with systolic upstrokeMid: 60.7, 551.9, monophasic with systolic upstrokeCentral: 43.8, 574.2, monophasic with systolic upstrokeIMPRESSION:Left brachial-transposed basilic arteriovenous fistula. The fistula it [...] is slightly less than recommended per KDOQI guidelines.Amin NondenominationalPhosphorfairview regional medical center – [id number] 07:02:48* Test Item Value Reference Range Interpretation Comments Phosphorus (test code = 2777-1) 6.9 mg/dL 2.4-4.5 H Lab Interpretation (test code = 66406-6) Abnormal [facility] MethodistThyroid stimulating [id number] 15:31:26* Test Item Value Reference Range Interpretation Comments TSH (test code = 3016-3) 1.46 0.27- 4.20 uIU/mL [facility] MethodistAmmonia [id number] 23:31:33* Test Item Value Reference Range Interpretation Comments Ammonia (test code = 1841-6) 13 umol/L 11-51 [facility] [id number] 15:58:00* Test Item Value Reference Range Interpretation Comments GLUBED (test code = GLUBED) 256 mg/dL 74-106 H [facility] [id number] 11:35:00* Test Item Value Reference Range Interpretation Comments GLUBED (test code = GLUBED) 229 mg/dL 74-106 H Performed by certified brake press operator [facility]~ [id number] 08:14:00* Test Item Value Reference Range Interpretation Comments GLUBED (test code = GLUBED) 209 mg/dL 74-106 H Performed by certified brake press operator [facility]~ [id number] 20:52:00* Test Item Value Reference Range Interpretation Comments GLUBED (test code = GLUBED) 270 mg/dL 74-106 H Performed by certified brake press operator at [facility] [id number] 16:51:00* Test Item Value Reference Range Interpretation Comments GLUBED (test code = GLUBED) 239 mg/dL 74-106 H Performed by certified brake press operator at [facility] - Intro cath dialysis wvoslvh2455-71-98 13:17:00 Name: LAYO BOBO [facility] : 1945 Age/S: 74 / F [address] Unit #: [id number] Loc: [place] [address] Phys: Tong Bradshaw MD Acct: [id number] Dis Date: Status: ADM IN PHONE #: [phone] Exam Date: 03/27/2019 1342 FAX #: [phone] Reason: EXAMS: CPT CODE: [id number] Intro cath dialysis circuit 11125 Fluoro Time: 72 DAP (Gy m2): 18.601 Air Kerma (mGy): 72.89 REASON FOR EXAM:Immature left upper arm AV fistula PROCEDURE: 1. Ultrasound-guided vascular access of the venous limb of the AV fistula 2. Ultrasound-guided vascular access of the arterial limb of the fistula 3. AV fistulogram Fswg-an-axsw procedure time is approximately one hour FINDINGS: Prior to the procedure, informed consent was obtained after risks and benefits of the procedure were explained to the patient. The patient agreed and wanted to proceed. The patient was brought to special procedures and placed supine on the table. The left arm was prepped was draped in the usual fashion. All elements of maximal sterile barrier techniques were applied. Ultrasound demonstrates patency of the left upper arm AVF. Images of the fistula were submitted to PACS. Under real time ultrasound guidance, a micropuncture needle was used to access the venous limb. A B ernstein catheter was successfully advanced past the arterial anastomosis into the left brachial artery. The AV fistulogram demonstrated patent linnea rial anastomosis. The main outflow the AV fistula is the left cephalic vei n. There is poor opacification of the central venous system with some raul ateral flow, cannot rule out central venous stenosis. A seco nd access was made under ultrasound and the arterial limb of the AV fistul a. A Ge catheter was advanced into the left subclavian and a centra l venogram was performed. No evidence of central venous stenosis. The cath eter was removed and hemostasis obtained MEDICATIONS: 1 mg of Vers ed, 50 mcg of fentanyl COMPLICATIONS: None Blood loss: 10 cc Fluoroscopic time: 72 seconds Radiation dose: 73 mGy IMPRESSION: Patent left brachial cephalic AV fistula. No evidence of a rterial inflow stenosis. No evidence of venous outflow stenosis. No evid ence of central venous stenosis. PAGE 1 Signed Re port (CONTINUED) Name: ROSHNI BOBOLMA [facility] : 1945 Age/S: 74 / F [address] Unit #: [id number] [place] [address] Phys: Tong Bradshaw MD Acct: [id number] Dis Date: Status: ADM IN PHONE #: [phone] Exam Date: 03/27/2019 1342 FAX #: [phone] Reason: EXAMS: CPT CODE: [id number] Intro cath dialysis circuit 46309 Fluoro Time: 72 DAP (Gy m2): 18.601 Air Kerma (mGy): 72.89 < Continued> at 1317 Reported and signed by: Blue Chung M.D. CC: Tong Bradshaw Technologist: Juana Hernandez Trnscb Date/Time: 03/28/2019 (1317) tYOELVTL Orig Print D/T: S: 03/28/2019 (9790) PAGE 2 Signed Report - US GUIDANCE [facility] [id number] 13:17:00 Name: LAYO BOBO [facility] : 1945 Age/S: 74 [facility] [id number] Loc: [place] [address] Phys: Tong Bradshaw MD Acct: [id number] Dis Date: Status: ADM IN PHONE #: [phone] Exam Date: 03/27/2019 1342 FAX #: [phone] Reason: EXAMS: CPT CODE: [id number] [facility] GUIDANCE [facility] ACCESS 52488 Fluoro Time: DAP (Gy m2): Air Kerma (mGy): REASON FOR EXAM:Immature left upper arm AV fistula PROCEDURE: 1. Ultrasound-guided vascular access of the venous limb of the AV fistula 2. Ultrasound-guided vascular access of the arterial limb of the fistula 3. AV fistulogram Gpsj-yj-xbrj procedure time is approximately one hour FINDINGS: Prior to the procedure, informed consent was obtained after risks and benefits of the procedure were explained to the patient. The patient agreed and wanted to proceed. The patient was brought to special procedures and placed supine on the table. The left arm was prepped was draped in the usual fashion. All elements of maximal sterile barrier techniques were applied. Ultrasound demonstrates patency of the left upper arm AVF. Images of the fistula were submitted to PACS. Under real time ultrasound guidance, a micropuncture needle was used to access the venous limb. A B ernstein catheter was successfully advanced past the arterial anastomosis into the left brachial artery. The AV fistulogram demonstrated patent linnea rial anastomosis. The main outflow the AV fistula is the left cephalic vei n. There is poor opacification of the central venous system with some raul ateral flow, cannot rule out central venous stenosis. A seco nd access was made under ultrasound and the arterial limb of the AV fistul a. A Ge catheter was advanced into the left subclavian and a centra l venogram was performed. No evidence of central venous stenosis. The cath eter was removed and hemostasis obtained MEDICATIONS: 1 mg of Vers ed, 50 mcg of fentanyl COMPLICATIONS: None Blood loss: 10 cc Fluoroscopic time: 72 seconds Radiation dose: 73 mGy IMPRESSION: Patent left brachial cephalic AV fistula. No evidence of a rterial inflow stenosis. No evidence of venous outflow stenosis. No evid ence of central venous stenosis. PAGE 1 Signed Re port (CONTINUED) Name: ROSHNI BOBOLMA [facility] : 1945 Age/S: 74 / F [address] Unit #: [id number] Loc: [place] [address] Phys: Tong Bradshaw MD Acct: [id number] Dis Date: Status: ADM IN PHONE #: [phone] Exam Date: 03/27/2019 1342 FAX #: [phone] Reason: EXAMS: CPT CODE: [id number] US GUIDANCE [facility] ACCESS 04724 Fluoro Time: DAP (Gy m2): Air Kerma (mGy): < Continued> at 1317 Reported and signed by: Blue Chung M.D. CC: Tong Bradshaw Technologist: Juana Hernandez Trnscb Date/Time: 03/28/2019 (1317) tROD Orig Print D/T: S: 03/28/2019 (1320) PAGE 2 Signed Report [id number] 08:14:00* Test Item Value Reference Range Interpretation Comments GLUBED (test code = GLUBED) 165 mg/dL 74-106 H Performed by certified brake press operator at [facility] BASIC METABOLIC [id number] 05:17:00* Test Item Value Reference Range Interpretation Comments SODIUM (test code = NA) 133 mmol/L 136-145 L POTASSIUM (test code = K) 3.6 mmol/L 3.5-5.1 N CHLORIDE (test code = CL) 94.0 mmol/L 98-107 L CARBON DIOXIDE (test code = CO2) 27.0 mmol/L 21-32 N ANION GAP (test code = GAP) 15.6 10-20 N GLUCOSE (test code = GLU) 193 mg/dL 74-106 H BLOOD UREA NITROGEN (test code = BUN) 20 mg/dL 7-18 H GLOMERULAR FILTRATION RATE (test code = GFR) 7 mL/min >=60 Estimated GFR by using Modified MDRD formula.Chronic kidney disease is defined as either kidney damageor GFR <60 mL/min/1.73 m2 for >3 months. CREATININE (test code = CREAT) 5.60 mg/dL 0.55-1.02 H Note change in reference range due to change in reagent. BUN/CREATININE RATIO (test code = BUN/CREA) 3.6 10-20 L CALCIUM (test code = CA) 8.5 mg/dL 8.5-10.1 N [id number] 05:17:00* Test Item Value Reference Range Interpretation Comments PHOSPHORUS (test code = PHOS) 4.1 mg/dL 2.5-4.9 N CBC W/AUTO [id number] 04:52:00* Test Item Value Reference Range Interpretation Comments WHITE BLOOD CELL (test code = WBC) 8.2 K/mm3 4.5-12.5 N RED BLOOD CELL (test code = RBC) 3.38 mill/mm3 3.7-5.2 L HEMOGLOBIN (test code = HGB) 10.1 gram/dL 11.5-15.5 L HEMATOCRIT (test code = HCT) 30.2 % 36.0-46.0 L MEAN CELL VOLUME (test code = MCV) 89.3 fL 80-98 N MEAN CELL HGB (test code = MCH) 29.9 picogram 27.0-33.0 N MEAN CELL HGB CONCETRATION (test code = MCHC) 33.4 gram/dL 33.0-36. 0 N RED CELL DISTRIBUTION WIDTH (test code = RDW) 15.3 % 11.6-16. 2 N RED CELL DISTRIBUTION WIDTH SD (test code = RDW-SD) 49.2 fL 37 .0-51.0 N PLATELET COUNT (test code = PLT) 248 K/mm3 150-450 N MEAN PLATELET VOLUME (test code = MPV) 9.4 fL 6.7-11.0 N NEUTROPHIL % (test code = NT%) 64.8 % 39.0-69.0 N IMMATURE GRANULOCYTE % (test code = IG%) 0.2 % 0.0-5.0 N LYMPHOCYTE % (test code = LY%) 28.5 % 25.0-55.0 N MONOCYTE % (test code = MO%) 4.2 % 0.0-10.0 N EOSINOPHIL % (test code = EO%) 2.1 % 0.0-5.0 N BASOPHIL % (test code = BA%) 0.2 % 0.0-1.0 N NUCLEATED RBC % (test code = NRBC%) 0.0 % 0-0 N NEUTROPHIL # (test code = NT#) 5.28 K/mm3 1.8-7.7 N IMMATURE GRANULOCYTE # (test code = IG#) 0.02 x10 3/uL 0-0.03 N LYMPHOCYTE # (test code = LY#) 2.32 K/mm3 1.0-5.0 N MONOCYTE # (test code = MO#) 0.34 K/mm3 0-0.8 N EOSINOPHIL # (test code = EO#) 0.17 K/mm3 0.0-0.5 N BASOPHIL # (test code = BA#) 0.02 K/mm3 0.0-0.2 N NUCLEATED RBC # (test code = NRBC#) 0.00 K/mm3 0.0-0.1 N [id number] 20:14:00* Test Item Value Reference Range Interpretation Comments GLUBED (test code = GLUBED) 186 mg/dL 74-106 H Performed by certified brake press operator at [facility] PROTHROMBIN [id number] 17:37:00* Test Item Value Reference Range Interpretation Comments PROTHROMBIN TIME PATIENT (test code = PTP) 12.4 seconds 9.0-14.0 N INTERNATIONAL NORMAL RATIO (test code = INR) 1.1 0.8-1.2 N The therapeutic range for oral anticoagulant therapy formost indications is an international normalized ratio (INR)of between 2.0 and 3.0. The recommended therapeutic INRrange for various clinical situations is listed below: Clinical Situation INR range Pulmonary e mbolism treatment (2.0-3.0)Venous thrombosis treatmentVenous thrombosis prophylaxis (high risk surgery)Prevention of systemic embolism from: Acute myocardial infarction Valvular heart disease Atrial fibrillation Mechanical prosthetic heart valves (2.5-3.5) IN TUMBLER DRIER OPERATOR LYNDA(GUG8930)V.LAB.[facility] 03/27/19 1245IS PATIENT ON ANTICOAGULANT S? YLIST ANTICOAGULANTS PLAVIXTHROMBOPLASTIN TIME [id number] 17:37:00 * Test Item Value Reference Range Interpretation Comments THROMBOPLASTIN TIME PARTIAL (test code = PTT) 32.6 seconds 25.0-36. 5 N IN TUMBLER DRIER OPERATOR LYNDA(AKD3065)V.LAB.[facility] 03/27/19 1245IS PATIENT ON ANTICOAGULANT S? YLIST ANTICOAGULANTS [id number] 17:25:00* Test Item Value Reference Range Interpretation Comments GLUBED (test code = GLUBED) 190 mg/dL 74-106 H Performed by certified brake press operator at [facility] [id number] 13:19:00* Test Item Value Reference Range Interpretation Comments GLUBED (test code = GLUBED) 157 mg/dL 74-106 H Performed by certified brake press operator at [facility] [id number] 09:13:00* Test Item Value Reference Range Interpretation Comments GLUBED (test code = GLUBED) 209 mg/dL 74-106 H Performed by certified brake press operator at [facility] [id number] 20:25:00* Test Item Value Reference Range Interpretation Comments GLUBED (test code = GLUBED) 300 mg/dL 74-106 H Performed by certified brake press operator at [facility] [id number] 16:02:00* Test Item Value Reference Range Interpretation Comments GLUBED (test code = GLUBED) 253 mg/dL 74-106 H Performed by certified brake press operator at [facility] BASIC METABOLIC [id number] 10:53:00* Test Item Value Reference Range Interpretation Comments SODIUM (test code = NA) 137 mmol/L 136-145 N POTASSIUM (test code = K) 3.0 mmol/L 3.5-5.1 L CHLORIDE (test code = CL) 95.0 mmol/L 98-107 L CARBON DIOXIDE (test code = CO2) 32.0 mmol/L 21-32 N ANION GAP (test code = GAP) 13.0 10-20 N GLUCOSE (test code = GLU) 201 mg/dL 74-106 H BLOOD UREA NITROGEN (test code = BUN) 9 mg/dL 7-18 N GLOMERULAR FILTRATION RATE (test code = GFR) 12 mL/min >=60 Estimated GFR by using Modified MDRD formula.Chronic kidney disease is defined as either kidney damageor GFR <60 mL/min/1.73 m2 for >3 months. CREATININE (test code = CREAT) 3.70 mg/dL 0.55-1.02 H Note change in reference range due to change in reagent. BUN/CREATININE RATIO (test code = BUN/CREA) 2.4 10-20 L CALCIUM (test code = CA) 8.6 mg/dL 8.5-10.1 N BASIC METABOLIC [id number] 10:51:00* Test Item Value Reference Range Interpretation Comments SODIUM (test code = NA) 137 mmol/L 136-145 N POTASSIUM (test code = K) 3.0 mmol/L 3.5-5.1 L CHLORIDE (test code = CL) 95.0 mmol/L 98-107 L CARBON DIOXIDE (test code = CO2) mmol/L 21-32 ANION GAP (test code = GAP) 10-20 GLUCOSE (test code = GLU) mg/dL 74-106 BLOOD UREA NITROGEN (test code = BUN) mg/dL 7-18 GLOMERULAR FILTRATION RATE (test code = GFR) mL/min >=60 CREATININE (test code = CREAT) mg/dL 0.55-1.02 BUN/CREATININE RATIO (test code = BUN/CREA) 10-20 CALCIUM (test code = CA) 8.6 mg/dL 8.5-10.1 N CBC W/O [id number] 10:41:00* Test Item Value Reference Range Interpretation Comments WHITE BLOOD CELL (test code = WBC) 7.0 K/mm3 4.5-12.5 N RED BLOOD CELL (test code = RBC) 3.45 mill/mm3 3.7-5.2 L HEMOGLOBIN (test code = HGB) 10.5 gram/dL 11.5-15.5 L HEMATOCRIT (test code = HCT) 31.6 % 36.0-46.0 L MEAN CELL VOLUME (test code = MCV) 91.6 fL 80-98 N MEAN CELL HGB (test code = MCH) 30.4 picogram 27.0-33.0 N MEAN CELL HGB CONCETRATION (test code = MCHC) 33.2 gram/dL 33.0-36. 0 N RED CELL DISTRIBUTION WIDTH (test code = RDW) 15.8 % 11.6-16. 2 N PLATELET COUNT (test code = PLT) 243 K/mm3 150-450 N MEAN PLATELET VOLUME (test code = MPV) 9.4 fL 6.7-11.0 N - XR CHEST 1 [id number] 08:57:00 FAX: [employer] Mdl: B St: REG FAX: Tong Balbuena MD Name: LAYO BOBO [facility] : 1945 Age/S: 74/F [address] Unit #: [id number] Loc: [place] [address] Phys: Solomon Bernal MD Acct: [id number] Dis Date: Status: REG ER PHONE #: [phone] Exam Date: 03/26/2019 0841 FAX #: [phone] Reason: tunneled HD cath came out of chest wall EXAMS: CPT CODE: [id number] XR CHEST 1 V 55856 EXAM: Chest x-ray, one view; INFORMATION: Dislodged dialysis catheter; IMPRESSION: 1. No evidence of pneumothorax or pulmonary edema, infiltrates or other signs of active cardiopulmonary disease. 2. The heart is borderline in size. 3. Status post median sternotomy. 4. A previously seen left IJ tunneled hemodialysis catheter is no longer present. Otherwise, no change compared with the study from March 10, 2019. at 0857 Reported and signed by: Sammy Rose M.D. CC: Solomon Bernal MD; Tong Bradshaw Technologist: Nikia KC(Huy) Trnscrd Date/Time/By: 03/26/2019 (0857) : By: MicheletGRW Orig Print D/T: S: 03/26/2019 (0900) PAGE 1 Signed Report [id number] 16:27:00* Test Item Value Reference Range Interpretation Comments GLUBED (test code = GLUBED) 167 mg/dL 74-106 H Performed by certified brake press operator at [facility] [id number] 15:23:00* Test Item Value Reference Range Interpretation Comments GLUBED (test code = GLUBED) 160 mg/dL 74-106 H Performed by certified brake press operator at [facility] [id number] 07:02:00* Test Item Value Reference Range Interpretation Comments GLUBED (test code = GLUBED) 118 mg/dL 74-106 H Performed by certified brake press operator [facility]~ [id number] 21:24:00* Test Item Value Reference Range Interpretation Comments GLUBED (test code = GLUBED) 204 mg/dL 74-106 H Performed by certified brake press operator [facility] [id number] 15:54:00* Test Item Value Reference Range Interpretation Comments GLUBED (test code = GLUBED) 174 mg/dL 74-106 H Performed by certified brake press operator at [facility] [id number] 12:58:00* Test Item Value Reference Range Interpretation Comments GLUBED (test code = GLUBED) 160 mg/dL 74-106 H Performed by certified brake press operator at [facility] RENAL FUNCTION [id number] 06:38:00* Test Item Value Reference Range Interpretation Comments SODIUM (test code = NA) 138 mmol/L 136-145 N POTASSIUM (test code = K) 4.5 mmol/L 3.5-5.1 N CHLORIDE (test code = CL) 102.0 mmol/L 98-107 N CARBON DIOXIDE (test code = CO2) 26.0 mmol/L 21-32 N ANION GAP (test code = GAP) 14.5 10-20 N GLUCOSE (test code = GLU) 161 mg/dL 74-106 H BLOOD UREA NITROGEN (test code = BUN) 36 mg/dL 7-18 H CREATININE (test code = CREAT) 5.60 mg/dL 0.55-1.02 H Note change in reference range due to change in reagent. ALBUMIN (test code = ALB) 3.2 g/dL 3.4-5.0 L CALCIUM (test code = CA) 9.1 mg/dL 8.5-10.1 N PHOSPHORUS (test code = PHOS) 4.5 mg/dL 2.5-4.9 N RENAL FUNCTION [id number] 06:31:00* Test Item Value Reference Range Interpretation Comments SODIUM (test code = NA) 138 mmol/L 136-145 N POTASSIUM (test code = K) 4.5 mmol/L 3.5-5.1 N CHLORIDE (test code = CL) 102.0 mmol/L 98-107 N CARBON DIOXIDE (test code = CO2) mmol/L 21-32 ANION GAP (test code = GAP) 10-20 GLUCOSE (test code = GLU) mg/dL 74-106 BLOOD UREA NITROGEN (test code = BUN) mg/dL 7-18 CREATININE (test code = CREAT) mg/dL 0.55-1.02 ALBUMIN (test code = ALB) g/dL 3.4-5.0 CALCIUM (test code = CA) mg/dL 8.5-10.1 PHOSPHORUS (test code = PHOS) mg/dL 2.5-4.9 CBC W/AUTO [id number] 06:09:00* Test Item Value Reference Range Interpretation Comments WHITE BLOOD CELL (test code = WBC) 7.6 K/mm3 4.5-12.5 N RED BLOOD CELL (test code = RBC) 2.82 mill/mm3 3.7-5.2 L HEMOGLOBIN (test code = HGB) 8.8 gram/dL 11.5-15.5 L HEMATOCRIT (test code = HCT) 25.9 % 36.0-46.0 L MEAN CELL VOLUME (test code = MCV) 91.8 fL 80-98 N MEAN CELL HGB (test code = MCH) 31.2 picogram 27.0-33.0 N MEAN CELL HGB CONCETRATION (test code = MCHC) 34.0 gram/dL 33.0-36. 0 N RED CELL DISTRIBUTION WIDTH (test code = RDW) 13.5 % 11.6-16. 2 N RED CELL DISTRIBUTION WIDTH SD (test code = RDW-SD) 45.3 fL 37 .0-51.0 N PLATELET COUNT (test code = PLT) 275 K/mm3 150-450 N MEAN PLATELET VOLUME (test code = MPV) 9.1 fL 6.7-11.0 N NEUTROPHIL % (test code = NT%) 54.5 % 39.0-69.0 N IMMATURE GRANULOCYTE % (test code = IG%) 0.3 % 0.0-5.0 N LYMPHOCYTE % (test code = LY%) 36.0 % 25.0-55.0 N MONOCYTE % (test code = MO%) 5.0 % 0.0-10.0 N EOSINOPHIL % (test code = EO%) 3.9 % 0.0-5.0 N BASOPHIL % (test code = BA%) 0.3 % 0.0-1.0 N NUCLEATED RBC % (test code = NRBC%) 0.0 % 0-0 N NEUTROPHIL # (test code = NT#) 4.17 K/mm3 1.8-7.7 N IMMATURE GRANULOCYTE # (test code = IG#) 0.02 x10 3/uL 0-0.03 N LYMPHOCYTE # (test code = LY#) 2.75 K/mm3 1.0-5.0 N MONOCYTE # (test code = MO#) 0.38 K/mm3 0-0.8 N EOSINOPHIL # (test code = EO#) 0.30 K/mm3 0.0-0.5 N BASOPHIL # (test code = BA#) 0.02 K/mm3 0.0-0.2 N NUCLEATED RBC # (test code = NRBC#) 0.00 K/mm3 0.0-0.1 N [id number] 05:59:00* Test Item Value Reference Range Interpretation Comments GLUBED (test code = GLUBED) 163 mg/dL 74-106 H Performed by certified brake press operator at [facility] [id number] 05:59:00* Test Item Value Reference Range Interpretation Comments GLUBED (test code = GLUBED) 158 mg/dL 74-106 H Performed by certified brake press operator at [facility] [id number] 16:16:00* Test Item Value Reference Range Interpretation Comments GLUBED (test code = GLUBED) 145 mg/dL 74-106 H Performed by certified brake press operator at [facility] [id number] 12:23:00* Test Item Value Reference Range Interpretation Comments GLUBED (test code = GLUBED) 132 mg/dL 74-106 H Performed by certified brake press operator at [facility] [id number] 07:14:00* Test Item Value Reference Range Interpretation Comments GLUBED (test code = GLUBED) 124 mg/dL 74-106 H [facility] [id number] 21:23:00* Test Item Value Reference Range Interpretation Comments GLUBED (test code = GLUBED) 292 mg/dL 74-106 H [facility] by certified brake press [facility] BASIC METABOLIC [id number] 06:46:00* Test Item Value Reference Range Interpretation Comments SODIUM (test code = NA) 139 mmol/L 136-145 N POTASSIUM (test code = K) 3.9 mmol/L 3.5-5.1 N CHLORIDE (test code = CL) 103.0 mmol/L 98-107 N CARBON DIOXIDE (test code = CO2) 29.0 mmol/L 21-32 N ANION GAP (test code = GAP) 10.9 10-20 N GLUCOSE (test code = GLU) 147 mg/dL 74-106 H BLOOD UREA NITROGEN (test code = BUN) 18 mg/dL 7-18 N GLOMERULAR FILTRATION RATE (test code = GFR) 12 mL/min >=60 Estimated GFR by using Modified MDRD formula.Chronic kidney disease is defined as either kidney damageor GFR <60 mL/min/1.73 m2 for >3 months. CREATININE (test code = CREAT) 3.60 mg/dL 0.55-1.02 H Note change in reference range due to change in reagent. BUN/CREATININE RATIO (test code = BUN/CREA) 5.1 10-20 L CALCIUM (test code = CA) 8.2 mg/dL 8.5-10.1 L BASIC METABOLIC [id number] 06:41:00* Test Item Value Reference Range Interpretation Comments SODIUM (test code = NA) 139 mmol/L 136-145 N POTASSIUM (test code = K) 3.9 mmol/L 3.5-5.1 N CHLORIDE (test code = CL) 103.0 mmol/L 98-107 N CARBON DIOXIDE (test code = CO2) mmol/L 21-32 ANION GAP (test code = GAP) 10-20 GLUCOSE (test code = GLU) mg/dL 74-106 BLOOD UREA NITROGEN (test code = BUN) mg/dL 7-18 GLOMERULAR FILTRATION RATE (test code = GFR) mL/min >=60 CREATININE (test code = CREAT) mg/dL 0.55-1.02 BUN/CREATININE RATIO (test code = BUN/CREA) 10-20 CALCIUM (test code = CA) 8.2 mg/dL 8.5-10.1 L CBC W/AUTO [id number] 06:28:00* Test Item Value Reference Range Interpretation Comments WHITE BLOOD CELL (test code = WBC) 8.2 K/mm3 4.5-12.5 N RED BLOOD CELL (test code = RBC) 2.63 mill/mm3 3.7-5.2 L HEMOGLOBIN (test code = HGB) 8.2 gram/dL 11.5-15.5 L HEMATOCRIT (test code = HCT) 24.1 % 36.0-46.0 L MEAN CELL VOLUME (test code = MCV) 91.6 fL 80-98 N MEAN CELL HGB (test code = MCH) 31.2 picogram 27.0-33.0 N MEAN CELL HGB CONCETRATION (test code = MCHC) 34.0 gram/dL 33.0-36. 0 N RED CELL DISTRIBUTION WIDTH (test code = RDW) 13.5 % 11.6-16. 2 N RED CELL DISTRIBUTION WIDTH SD (test code = RDW-SD) 45.5 fL 37 .0-51.0 N PLATELET COUNT (test code = PLT) 239 K/mm3 150-450 N MEAN PLATELET VOLUME (test code = MPV) 9.2 fL 6.7-11.0 N NEUTROPHIL % (test code = NT%) 51.5 % 39.0-69.0 N IMMATURE GRANULOCYTE % (test code = IG%) 0.5 % 0.0-5.0 N LYMPHOCYTE % (test code = LY%) 37.9 % 25.0-55.0 N MONOCYTE % (test code = MO%) 6.3 % 0.0-10.0 N EOSINOPHIL % (test code = EO%) 3.6 % 0.0-5.0 N BASOPHIL % (test code = BA%) 0.2 % 0.0-1.0 N NUCLEATED RBC % (test code = NRBC%) 0.0 % 0-0 N NEUTROPHIL # (test code = NT#) 4.20 K/mm3 1.8-7.7 N IMMATURE GRANULOCYTE # (test code = IG#) 0.04 x10 3/uL 0-0.03 H LYMPHOCYTE # (test code = LY#) 3.09 K/mm3 1.0-5.0 N MONOCYTE # (test code = MO#) 0.51 K/mm3 0-0.8 N EOSINOPHIL # (test code = EO#) 0.29 K/mm3 0.0-0.5 N BASOPHIL # (test code = BA#) 0.02 K/mm3 0.0-0.2 N NUCLEATED RBC # (test code = NRBC#) 0.00 K/mm3 0.0-0.1 N MANUAL DIFF REQUIRED (test code = MDIFF) NO [id number] 21:12:00* Test Item Value Reference Range Interpretation Comments GLUBED (test code = GLUBED) 245 mg/dL 74-106 H [facility] certified brake press [facility] [id number] 04:05:00* Test Item Value Reference Range Interpretation Comments TROPONIN-I (test code = TROPI) 0.054 ng/mL 0-0.045 HH RESULT VERIFIED BY REPEAT ANALYSIS COMMENTS TO FLEX O WRITER OPERATOR: COLLECT 3 HOURS AFTER PREVIOUS [id number] 23:47:00* Test Item Value Reference Range Interpretation Comments TROPONIN-I (test code = TROPI) 0.046 ng/mL 0-0.045 H Results called to [id number] by NIKUNJ 03/10/19 2344Critical results verified and read back by Nurse? Y COMMENTS TO FLEX O WRITER OPERATOR: COLLECT 3 HOURS AFTER PREVIOUS SAMPLE- XR CHEST 1 [id number] 15:33:00 FAX: Tong Balbuena MD [employer]: St: REG FAX: Sia Bertrand DO Name: LAYO BOBO [facility] : 1945 Age/S: 73/F [address] [facility] Unit #: [id number] Loc: [place] [address] Phys: Sia Bertrand DO Acct: [id number] Dis Date: Status: REG ER PHONE #: [phone] Exam Date: 03/10/2019 1523 FAX #: [phone] Reason: CODE STROKE EXAMS: CPT CODE: [id number] XR CHEST 1 V [id number] REASON FOR EXAM: CODE STROKE EXAM ORDER DATE: 03/10/2019 2:10 PM Ordering Charli: Sia Bertrand DO PROCEDURE: - XR CHEST 1 V COMPARISON: 02/27/2019 FINDINGS: Portable AP frontal view of the chest obtained at 3:23 PM shows clear lungs without evidence of consolidation. There is no evidence of effusion. The heart size is minimally enlarged. Stable appearance of the left IJ dialysis catheter. Pulmonary vasculatures are unremarkable. IMPRESSION: Hyperinflated lungs and minimal cardiomegaly E lectronically Signed by Charli Chung on 03/10/2019 at 1533 Reported and signed by: Blue Chung M.D. CC: Jaden Bradshaw Lauren DO Technologist: Raven Simmons(R) Trnjoycerd Date/Time/By: 03/10/2019 (1533) : By: Miriam DONOHUE Orig Print D/T: S: 03/10/2019 (1536) PAG E 1 Signed Report - CT HEAD/BRAIN W/O [id number] 15:28:00 Name: LAYO BOBO [facility] : 1945 Age/S: 73 / F [address] [facility] [facility] Unit #: [id number] Loc: [place] [address] Phys: Sia Bertrand DO Acct: [id number] Dis Date: Status: REG ER PHONE #: [phone] Exam Date: 03/10/2019 1520 FAX #: [phone] Reason: WEAKNESS EXAMS: CPT CODE: [id number] CT HEAD/BRAIN W/O CONT 60016 REASON FOR EXAM: WEAKNESS EXAM ORDER DATE: 03/10/2019 2:10 PM Ordering MRebecca: Sia Bertrand DO PROCEDURE: - CT HEAD/BRAIN W/O CONT COMPARISON: FINDINGS: CT images of the brain were obtained without IV contrast. Dose modulation, iterative reconstruction, and/or weight based adjustment of the MA/KV was utilized to reduce the radiation dose to as low as reasonably achievable. Mild patchy low densities appearance of the paraventricular region noted consistent with nonspecific white matter disease. The nino-white matter delineation is unremarkable. The ventricles, cisterns, and sulci are unremarkable. There is no evidence of hemorrhage, mass, mass effect. There is no evidence of acute or old infarct. The calvarium is intact. IMPRESSION: No acute findings at 1528 Reported and signed by: Blue Chung M.D. CC: Jaden Bradshaw Lauren DO Techno logist:NIKIA MONTGOMERY, RT(R) CT CTDI: DLP: Trnscb Date/Time : 03/10/2019 (1528) Emeterio Orig Print D/T: S: 03/10/20 19 (1531) PAGE 1 Signed Report BASIC METABOLIC [id number] 15:25:00* Test Item Value Reference Range Interpretation Comments SODIUM (test code = NA) 134 mmol/L 136-145 L POTASSIUM (test code = K) 4.2 mmol/L 3.5-5.1 N CHLORIDE (test code = CL) 98.0 mmol/L 98-107 N CARBON DIOXIDE (test code = CO2) 24.0 mmol/L 21-32 N ANION GAP (test code = GAP) 16.2 10-20 N GLUCOSE (test code = GLU) 236 mg/dL 74-106 H BLOOD UREA NITROGEN (test code = BUN) 21 mg/dL 7-18 H GLOMERULAR FILTRATION RATE (test code = GFR) 10 mL/min >=60 Estimated GFR by using Modified MDRD formula.Chronic kidney disease is defined as either kidney damageor GFR <60 mL/min/1.73 m2 for >3 months. CREATININE (test code = CREAT) 4.20 mg/dL 0.55-1.02 H Note change in reference range due to change in reagent. BUN/CREATININE RATIO (test code = BUN/CREA) 5.0 10-20 L CALCIUM (test code = CA) 8.8 mg/dL 8.5-10.1 N [id number] 15:25:00* Test Item Value Reference Range Interpretation Comments TROPONIN-I (test code = TROPI) 0.037 ng/mL 0-0.045 N PROTHROMBIN [id number] 15:22:00* Test Item Value Reference Range Interpretation Comments PROTHROMBIN TIME PATIENT (test code = PTP) 12.0 seconds 9.0-14.0 N INTERNATIONAL NORMAL RATIO (test code = INR) 1.0 0.8-1.2 N The therapeutic range for oral anticoagulant therapy formost indications is an international normalized ratio (INR)of between 2.0 and 3.0. The recommended therapeutic INRrange for various clinical situations is listed below: Clinical Situation INR range Pulmonary e mbolism treatment (2.0-3.0)Venous thrombosis treatmentVenous thrombosis prophylaxis (high risk surgery)Prevention of systemic embolism from: Acute myocardial infarction Valvular heart disease Atrial fibrillation Mechanical prosthetic heart valves (2.5-3.5) IS PATIENT ON ANTICOAGULANTS? NTHROMBOPLASTIN TIME [id number] 15:22:00* Test Item Value Reference Range Interpretation Comments THROMBOPLASTIN TIME PARTIAL (test code = PTT) 27.1 seconds 25.0-36. 5 N IS PATIENT ON ANTICOAGULANTS? NBASIC METABOLIC [id number] 15:17:00* Test Item Value Reference Range Interpretation Comments SODIUM (test code = NA) 134 mmol/L 136-145 L POTASSIUM (test code = K) 4.2 mmol/L 3.5-5.1 N CHLORIDE (test code = CL) 98.0 mmol/L 98-107 N CARBON DIOXIDE (test code = CO2) mmol/L 21-32 ANION GAP (test code = GAP) 10-20 GLUCOSE (test code = GLU) mg/dL 74-106 BLOOD UREA NITROGEN (test code = BUN) mg/dL 7-18 GLOMERULAR FILTRATION RATE (test code = GFR) mL/min >=60 CREATININE (test code = CREAT) mg/dL 0.55-1.02 BUN/CREATININE RATIO (test code = BUN/CREA) 10-20 CALCIUM (test code = CA) mg/dL 8.5-10.1 [id number] 15:17:00* Test Item Value Reference Range Interpretation Comments TROPONIN-I (test code = TROPI) ng/mL 0-0.045 CBC W/AUTO [id number] 15:04:00* Test Item Value Reference Range Interpretation Comments WHITE BLOOD CELL (test code = WBC) 9.7 K/mm3 4.5-12.5 N RED BLOOD CELL (test code = RBC) 3.09 mill/mm3 3.7-5.2 L HEMOGLOBIN (test code = HGB) 9.7 gram/dL 11.5-15.5 L HEMATOCRIT (test code = HCT) 28.8 % 36.0-46.0 L MEAN CELL VOLUME (test code = MCV) 93.2 fL 80-98 N MEAN CELL HGB (test code = MCH) 31.4 picogram 27.0-33.0 N MEAN CELL HGB CONCETRATION (test code = MCHC) 33.7 gram/dL 33.0-36. 0 N RED CELL DISTRIBUTION WIDTH (test code = RDW) 13.8 % 11.6-16. 2 N RED CELL DISTRIBUTION WIDTH SD (test code = RDW-SD) 46.5 fL 37 .0-51.0 N PLATELET COUNT (test code = PLT) 244 K/mm3 150-450 N MEAN PLATELET VOLUME (test code = MPV) 9.7 fL 6.7-11.0 N NEUTROPHIL % (test code = NT%) 50.9 % 39.0-69.0 N IMMATURE GRANULOCYTE % (test code = IG%) 0.2 % 0.0-5.0 N LYMPHOCYTE % (test code = LY%) 38.7 % 25.0-55.0 N MONOCYTE % (test code = MO%) 6.3 % 0.0-10.0 N EOSINOPHIL % (test code = EO%) 3.5 % 0.0-5.0 N BASOPHIL % (test code = BA%) 0.4 % 0.0-1.0 N NUCLEATED RBC % (test code = NRBC%) 0.0 % 0-0 N NEUTROPHIL # (test code = NT#) 4.96 K/mm3 1.8-7.7 N IMMATURE GRANULOCYTE # (test code = IG#) 0.02 x10 3/uL 0-0.03 N LYMPHOCYTE # (test code = LY#) 3.77 K/mm3 1.0-5.0 N MONOCYTE # (test code = MO#) 0.61 K/mm3 0-0.8 N EOSINOPHIL # (test code = EO#) 0.34 K/mm3 0.0-0.5 N BASOPHIL # (test code = BA#) 0.04 K/mm3 0.0-0.2 N NUCLEATED RBC # (test code = NRBC#) 0.00 K/mm3 0.0-0.1 N [id number] 14:59:00* Test Item Value Reference Range Interpretation Comments GLUBED (test code = GLUBED) 188 mg/dL 74-106 H Performed by certified brake press operator at [facility] [id number] 08:22:00* Test Item Value Reference Range Interpretation Comments GLUBED (test code = GLUBED) 219 mg/dL 74-106 H Performed by certified brake press operator at [facility] [id number] 08:21:00* Test Item Value Reference Range Interpretation Comments GLUBED (test code = GLUBED) 259 mg/dL 74-106 H Performed by certified brake press operator at [facility] [id number] 19:47:00* Test Item Value Reference Range Interpretation Comments GLUBED (test code = GLUBED) 193 mg/dL 74-106 H Performed by certified brake press operator at [facility] [id number] 15:58:00* Test Item Value Reference Range Interpretation Comments GLUBED (test code = GLUBED) 221 mg/dL 74-106 H Performed by certified brake press operator at [facility] [id number] 11:51:00* Test Item Value Reference Range Interpretation Comments GLUBED (test code = GLUBED) 165 mg/dL 74-106 H Performed by certified brake press operator at [facility] [id number] 10:27:00* Test Item Value Reference Range Interpretation Comments GLUBED (test code = GLUBED) 99 mg/dL 74-106 N Performed by certified brake press operator at [facility] [id number] 10:26:00* Test Item Value Reference Range Interpretation Comments GLUBED (test code = GLUBED) 238 mg/dL 74-106 H Performed by certified brake press operator at [facility] [id number] 10:24:00* Test Item Value Reference Range Interpretation Comments GLUBED (test code = GLUBED) 161 mg/dL 74-106 H Performed by certified brake press operator at [facility] [id number] 10:23:00* Test Item Value Reference Range Interpretation Comments GLUBED (test code = GLUBED) 220 mg/dL 74-106 H Performed by certified brake press operator at [facility] [id number] 10:23:00* Test Item Value Reference Range Interpretation Comments GLUBED (test code = GLUBED) 122 mg/dL 74-106 H Performed by certified brake press operator at [facility] [id number] 10:21:00* Test Item Value Reference Range Interpretation Comments GLUBED (test code = GLUBED) 221 mg/dL 74-106 H Performed by certified brake press operator at [facility] [id number] 10:21:00* Test Item Value Reference Range Interpretation Comments GLUBED (test code = GLUBED) 168 mg/dL 74-106 H Performed by certified brake press operator at [facility] [id number] 10:19:00* Test Item Value Reference Range Interpretation Comments GLUBED (test code = GLUBED) 107 mg/dL 74-106 H Performed by certified brake press operator at [facility] [id number] 10:18:00* Test Item Value Reference Range Interpretation Comments GLUBED (test code = GLUBED) 182 mg/dL 74-106 H [facility] certified brake press operator [facility] [id number] 10:16:00* Test Item Value Reference Range Interpretation Comments GLUBED (test code = GLUBED) 135 mg/dL 74-106 H Performed by certified brake press operator at [facility] [id number] 10:15:00* Test Item Value Reference Range Interpretation Comments GLUBED (test code = GLUBED) 145 mg/dL 74-106 H Performed by certified brake press operator at [facility] [id number] 10:14:00* Test Item Value Reference Range Interpretation Comments GLUBED (test code = GLUBED) 227 mg/dL 74-106 H Performed by certified brake press operator at [facility] BASIC METABOLIC [id number] 10:44:00* Test Item Value Reference Range Interpretation Comments SODIUM (test code = NA) 137 mmol/L 136-145 N POTASSIUM (test code = K) 4.1 mmol/L 3.5-5.1 N CHLORIDE (test code = CL) 100.0 mmol/L 98-107 N CARBON DIOXIDE (test code = CO2) 28.0 mmol/L 21-32 N ANION GAP (test code = GAP) 13.1 10-20 N GLUCOSE (test code = GLU) 197 mg/dL 74-106 H BLOOD UREA NITROGEN (test code = BUN) 25 mg/dL 7-18 H GLOMERULAR FILTRATION RATE (test code = GFR) 7 mL/min >=60 Estimated GFR by using Modified MDRD formula.Chronic kidney disease is defined as either kidney damageor GFR <60 mL/min/1.73 m2 for >3 months. CREATININE (test code = CREAT) 5.70 mg/dL 0.55-1.02 H Note change in reference range due to change in reagent. BUN/CREATININE RATIO (test code = BUN/CREA) 4.4 10-20 L CALCIUM (test code = CA) 8.2 mg/dL 8.5-10.1 L BASIC METABOLIC [id number] 10:36:00* Test Item Value Reference Range Interpretation Comments SODIUM (test code = NA) 137 mmol/L 136-145 N POTASSIUM (test code = K) 4.1 mmol/L 3.5-5.1 N CHLORIDE (test code = CL) 100.0 mmol/L 98-107 N CARBON DIOXIDE (test code = CO2) mmol/L 21-32 ANION GAP (test code = GAP) 10-20 GLUCOSE (test code = GLU) mg/dL 74-106 BLOOD UREA NITROGEN (test code = BUN) mg/dL 7-18 GLOMERULAR FILTRATION RATE (test code = GFR) mL/min >=60 CREATININE (test code = CREAT) mg/dL 0.55-1.02 BUN/CREATININE RATIO (test code = BUN/CREA) 10-20 CALCIUM (test code = CA) mg/dL 8.5-10.1 CBC W/O [id number] 10:20:00* Test Item Value Reference Range Interpretation Comments WHITE BLOOD CELL (test code = WBC) 6.4 K/mm3 4.5-12.5 N RED BLOOD CELL (test code = RBC) 2.75 mill/mm3 3.7-5.2 L HEMOGLOBIN (test code = HGB) 8.5 gram/dL 11.5-15.5 L HEMATOCRIT (test code = HCT) 25.4 % 36.0-46.0 L MEAN CELL VOLUME (test code = MCV) 92.4 fL 80-98 N MEAN CELL HGB (test code = MCH) 30.9 picogram 27.0-33.0 N MEAN CELL HGB CONCETRATION (test code = MCHC) 33.5 gram/dL 33.0-36. 0 N RED CELL DISTRIBUTION WIDTH (test code = RDW) 14.0 % 11.6-16. 2 N PLATELET COUNT (test code = PLT) 224 K/mm3 150-450 N MEAN PLATELET VOLUME (test code = MPV) 9.1 fL 6.7-11.0 N UR CREATININE CLEARANCE [id number] 00:24:00* Test Item Value Reference Range Interpretation Comments CREATININE CLEARANCE RESULT (test code = CREATCLR) 4 mL/min 100 -120 L CREATININE (test code = CREAT) 7.30 mg/dL 0.55-1.02 H Note change in reference range due to change in reagent. UR CREATININE RANDOM (test code = CREATU) 134.0 mg/dL 30-125 H UR VOLUME 24HR (test code = VOL) 300 mL/24hrs [id number] 300VLMUR CREATININE CLEARANCE [id number] 23:57:00* Test Item Value Reference Range Interpretation Comments CREATININE CLEARANCE RESULT (test code = CREATCLR) mL/min 100 -120 CREATININE (test code = CREAT) mg/dL 0.55-1.02 UR CREATININE RANDOM (test code = CREATU) mg/dL 30-125 UR VOLUME 24HR (test code = VOL) 300 mL/24hrs [id number] 300VLMAB HEPATITIS B [id number] 05:09:00* Test Item Value Reference Range Interpretation Comments AB HEPATITIS B SURFACE (test code = HBSAB) Reactive () Non Reactive: Inconsistent with immunity, less than 10 mIU/mL Reactive: Consistent with immunity, greater than 9.9 mIU/mLPerformed At: [facility] [address] [id number] Gutierrez MD Ph:[phone] HEPATITIS B CORE ANTIBODY,[id number] 05:09:00* Test Item Value Reference Range Interpretation Comments HEPATITIS B CORE ANTIBODY,TOT (test code = HBCAB) Negative Nega tive Performed At: [facility] [address] [id number] Gutierrez MD Ph:[phone] UR CREATININE CLEARANCE [id number] 15:15:00* Test Item Value Reference Range Interpretation Comments CREATININE CLEARANCE RESULT (test code = CREATCLR) TEST NOT PERFORMED mL/min 100-120 CREATININE (test code = CREAT) TEST NOT PERFORMED mg/dL 0.55-1.02 UR CREATININE RANDOM (test code = CREATU) TEST NOT PERFORMED mg/dL 30-125 Previously reported result: 172.0 mg/dLEdited by: MADAN on 03/02/19:441929 1514: CREATChristopher previously reported as: 172.0 H mg/dL UR VOLUME 24HR (test code = VOL) TEST NOT PERFORMED mL/24hrs 1000-2 000 URINALYSIS [id number] 14:13:00* Test Item Value Reference Range Interpretation Comments UA COLOR (test code = COLU) YELLOW YELLOW UA APPEARANCE (test code = APPU) Cloudy CLEAR A UA GLUCOSE DIPSTICK (test code = DGLUU) NEGATIVE mg/dL NEGATIVE UA BILIRUBIN DIPSTICK (test code = BILU) NEGATIVE mg/dL NEGATIVE UA KETONE DIPSTICK (test code = KETU) NEGATIVE mg/dL NEGATIVE UA SPECIFIC GRAVITY (test code = SGU) 1.017 1.001-1.035 UA BLOOD DIPSTICK (test code = MONTEZ) 0.06 mg/dL (1+) mg/dL NEGATIVE A UA PH DIPSTICK (test code = TREVA) 6.0 5.0-8.0 UA PROTEIN DIPSTICK (test code = PROU) 300 (3+) mg/dL NEGATIVE A UA UROBILINIOGEN DIPSTICK (test code = URO) Normal mg/dL NEGATIVE UA NITRITE DIPSTICK (test code = TOMAS) NEGATIVE NEGATIVE UA LEUKOCYTE ESTERASE DIPSTICK (test code = LEUU) 250 Henry/uL (2+) u L NEGATIVE A UA MICROSCOPIC NEEDED? (test code = UAMICRO) YES UA WBC (test code = WBCU) 21-50 per HPF 0-5 A UA RBC (test code = RBCU) 0-2 #/HPF 0-5 UA EPITHELIAL CELLS (test code = EPIU) MANY per HPF FEW UA BACTERIA (test code = BACU) MODERATE #/HPF NONE A UA MUCUS (test code = MUCU) FEW #/LPF FEW UA YEAST (test code = YEASTU) FEW #/HPF NONE A Urine Source? Clean CatchUR CREATININE CLEARANCE [id number] 14:00:00* Test Item Value Reference Range Interpretation Comments CREATININE CLEARANCE RESULT (test code = CREATCLR) mL/min 100 -120 CREATININE (test code = CREAT) mg/dL 0.55-1.02 UR CREATININE RANDOM (test code = CREATU) 172.0 mg/dL 30-125 H UR VOLUME 24HR (test code = VOL) mL/24hrs [id number] URINALYSIS [id number] 13:49:00* Test Item Value Reference Range Interpretation Comments UA COLOR (test code = COLU) YELLOW YELLOW UA APPEARANCE (test code = APPU) Cloudy CLEAR A UA GLUCOSE DIPSTICK (test code = DGLUU) NEGATIVE mg/dL NEGATIVE UA BILIRUBIN DIPSTICK (test code = BILU) NEGATIVE mg/dL NEGATIVE UA KETONE DIPSTICK (test code = KETU) NEGATIVE mg/dL NEGATIVE UA SPECIFIC GRAVITY (test code = SGU) 1.017 1.001-1.035 UA BLOOD DIPSTICK (test code = MONTEZ) 0.06 mg/dL (1+) mg/dL NEGATIVE A UA PH DIPSTICK (test code = TREVA) 6.0 5.0-8.0 UA PROTEIN DIPSTICK (test code = PROU) 300 (3+) mg/dL NEGATIVE A UA UROBILINIOGEN DIPSTICK (test code = URO) Normal mg/dL NEGATIVE UA NITRITE DIPSTICK (test code = TOMAS) NEGATIVE NEGATIVE UA LEUKOCYTE ESTERASE DIPSTICK (test code = LEUU) 250 Henry/uL (2+) u L NEGATIVE A UA MICROSCOPIC NEEDED? (test code = UAMICRO) UA WBC (test code = WBCU) 21-50 per HPF 0-5 A UA RBC (test code = RBCU) 0-2 #/HPF 0-5 UA EPITHELIAL CELLS (test code = EPIU) MANY per HPF FEW UA BACTERIA (test code = BACU) MODERATE #/HPF NONE A UA MUCUS (test code = MUCU) FEW #/LPF FEW UA YEAST (test code = YEASTU) FEW #/HPF NONE A Urine Source? Clean CatchURINALYSIS [id number] 13:44:00* Test Item Value Reference Range Interpretation Comments UA COLOR (test code = COLU) YELLOW YELLOW UA APPEARANCE (test code = APPU) Cloudy CLEAR A UA GLUCOSE DIPSTICK (test code = DGLUU) NEGATIVE mg/dL NEGATIVE UA BILIRUBIN DIPSTICK (test code = BILU) NEGATIVE mg/dL NEGATIVE UA KETONE DIPSTICK (test code = KETU) NEGATIVE mg/dL NEGATIVE UA SPECIFIC GRAVITY (test code = SGU) 1.017 1.001-1.035 UA BLOOD DIPSTICK (test code = MONTEZ) 0.06 mg/dL (1+) mg/dL NEGATIVE A UA PH DIPSTICK (test code = TREVA) 6.0 5.0-8.0 UA PROTEIN DIPSTICK (test code = PROU) 300 (3+) mg/dL NEGATIVE A UA UROBILINIOGEN DIPSTICK (test code = URO) Normal mg/dL NEGATIVE UA NITRITE DIPSTICK (test code = TOMAS) NEGATIVE NEGATIVE UA LEUKOCYTE ESTERASE DIPSTICK (test code = LEUU) 250 Henry/uL (2+) u L NEGATIVE A UA MICROSCOPIC NEEDED? (test code = UAMICRO) UA WBC (test code = WBCU) per HPF 0-5 UA RBC (test code = RBCU) per HPF 0-5 UA EPITHELIAL CELLS (test code = EPIU) per HPF Few UA BACTERIA (test code = BACU) per HPF NONE Urine Source? Clean [id number] 12:58:00* Test Item Value Reference Range Interpretation Comments GLUBED (test code = GLUBED) 186 mg/dL 74-106 H Performed by certified brake press operator at [facility] CBC W/AUTO [id number] 08:15:00* Test Item Value Reference Range Interpretation Comments WHITE BLOOD CELL (test code = WBC) 8.1 K/mm3 4.5-12.5 N RED BLOOD CELL (test code = RBC) 2.75 mill/mm3 3.7-5.2 L HEMOGLOBIN (test code = HGB) 8.5 gram/dL 11.5-15.5 L HEMATOCRIT (test code = HCT) 25.2 % 36.0-46.0 L MEAN CELL VOLUME (test code = MCV) 91.6 fL 80-98 N MEAN CELL HGB (test code = MCH) 30.9 picogram 27.0-33.0 N MEAN CELL HGB CONCETRATION (test code = MCHC) 33.7 gram/dL 33.0-36. 0 N RED CELL DISTRIBUTION WIDTH (test code = RDW) 14.0 % 11.6-16. 2 N RED CELL DISTRIBUTION WIDTH SD (test code = RDW-SD) 46.9 fL 37 .0-51.0 N PLATELET COUNT (test code = PLT) 258 K/mm3 150-450 N MEAN PLATELET VOLUME (test code = MPV) 9.4 fL 6.7-11.0 N NEUTROPHIL % (test code = NT%) 59.8 % 39.0-69.0 N IMMATURE GRANULOCYTE % (test code = IG%) 0.4 % 0.0-5.0 N LYMPHOCYTE % (test code = LY%) 30.3 % 25.0-55.0 N MONOCYTE % (test code = MO%) 4.7 % 0.0-10.0 N EOSINOPHIL % (test code = EO%) 4.4 % 0.0-5.0 N BASOPHIL % (test code = BA%) 0.4 % 0.0-1.0 N NUCLEATED RBC % (test code = NRBC%) 0.0 % 0-0 N NEUTROPHIL # (test code = NT#) 4.87 K/mm3 1.8-7.7 N IMMATURE GRANULOCYTE # (test code = IG#) 0.03 x10 3/uL 0-0.03 N LYMPHOCYTE # (test code = LY#) 2.46 K/mm3 1.0-5.0 N MONOCYTE # (test code = MO#) 0.38 K/mm3 0-0.8 N EOSINOPHIL # (test code = EO#) 0.36 K/mm3 0.0-0.5 N BASOPHIL # (test code = BA#) 0.03 K/mm3 0.0-0.2 N NUCLEATED RBC # (test code = NRBC#) 0.00 K/mm3 0.0-0.1 N MANUAL DIFF REQUIRED (test code = MDIFF) NO COMPREHENSIVE METABOLIC [id number] 06:06:00* Test Item Value Reference Range Interpretation Comments SODIUM (test code = NA) 135 mmol/L 136-145 L POTASSIUM (test code = K) 3.8 mmol/L 3.5-5.1 N CHLORIDE (test code = CL) 99.0 mmol/L 98-107 N CARBON DIOXIDE (test code = CO2) 25.0 mmol/L 21-32 N ANION GAP (test code = GAP) 14.8 10-20 N GLUCOSE (test code = GLU) 173 mg/dL 74-106 H BLOOD UREA NITROGEN (test code = BUN) 41 mg/dL 7-18 H GLOMERULAR FILTRATION RATE (test code = GFR) 6 mL/min >=60 Estimated GFR by using Modified MDRD formula.Chronic kidney disease is defined as either kidney damageor GFR <60 mL/min/1.73 m2 for >3 months. CREATININE (test code = CREAT) 7.30 mg/dL 0.55-1.02 H Note change in reference range due to change in reagent. BUN/CREATININE RATIO (test code = BUN/CREA) 5.6 10-20 L TOTAL PROTEIN (test code = PROT) 6.8 gram/dL 6.4-8.2 N ALBUMIN (test code = ALB) 3.3 g/dL 3.4-5.0 L GLOBULIN (test code = GLOB) 3.5 gram/dL 2.7-4.2 N ALBUMIN/GLOBULIN RATIO (test code = A/G) 0.9 0.75-1.50 N CALCIUM (test code = CA) 8.8 mg/dL 8.5-10.1 N BILIRUBIN TOTAL (test code = BILT) 0.50 mg/dL 0.0-1.0 N SGOT/AST (test code = AST) 11 IUnit/L 15-37 L SGPT/ALT (test code = ALT) 16 IUnit/L 12-78 N ALKALINE PHOSPHATASE TOTAL (test code = ALKP) 112 IUnit/L 45-117 N Note change in reference range due to change in reagent. COMPREHENSIVE METABOLIC [id number] 05:59:00* Test Item Value Reference Range Interpretation Comments SODIUM (test code = NA) 135 mmol/L 136-145 L POTASSIUM (test code = K) 3.8 mmol/L 3.5-5.1 N CHLORIDE (test code = CL) 99.0 mmol/L 98-107 N CARBON DIOXIDE (test code = CO2) mmol/L 21-32 ANION GAP (test code = GAP) 10-20 GLUCOSE (test code = GLU) mg/dL 74-106 BLOOD UREA NITROGEN (test code = BUN) mg/dL 7-18 GLOMERULAR FILTRATION RATE (test code = GFR) mL/min >=60 CREATININE (test code = CREAT) mg/dL 0.55-1.02 BUN/CREATININE RATIO (test code = BUN/CREA) 10-20 TOTAL PROTEIN (test code = PROT) gram/dL 6.4-8.2 ALBUMIN (test code = ALB) g/dL 3.4-5.0 GLOBULIN (test code = GLOB) gram/dL 2.7-4.2 ALBUMIN/GLOBULIN RATIO (test code = A/G) 0.75-1.50 CALCIUM (test code = CA) mg/dL 8.5-10.1 BILIRUBIN TOTAL (test code = BILT) mg/dL 0.0-1.0 SGOT/AST (test code = AST) IUnit/L 15-37 SGPT/ALT (test code = ALT) IUnit/L 12-78 ALKALINE PHOSPHATASE TOTAL (test code = ALKP) IUnit/L 45-117 - US RETRO [id number] 19:48:00 Name: LAYO BOBO [facility] : 1945 Age/S: 73 / F [address] Unit #: [id number] [place] [address] Phys: Geri Dubose MD Acct: [id number] Dis Date: Status: ADM IN PHONE #: [phone] Exam Date: 03/01/20191938 FAX #: [phone] Reason: BIANCA EXAMS: CPT CODE: [id number] US RETRO LTD 74369 REASON FOR EXAM: BIANCA EXAM ORDER DATE: 03/01/2019 2:17 PM Attending M.D.: Geri Dubose MD PROCEDURE: - US RETRO LTD Comparison: Renal ultrasound February 01, 2014 FINDINGS: Right kidney: parenchyma echogenicity: Normal echogenicity size: 10.3 x 3.9 x 4.3 cm. stones: none cysts/masses: none hydronephrosis: none Left kidney: parenchyma echogenicity: Normal echogenicity size: 9.1 x 4.1 x 5.0 cm. stones: none cysts/masses: none hydronephrosis: none Urinary Bladder: Ureteral jets: Not visualized Intraluminal masses/debris: None Wall thickness: Normal Outpouching: None IMPRESSION: Sonographically unremarkable kidneys. at 1948 Reported and signed by: Wes Piedra MD PAGE 1 Signed Report (CONTINUED) Name: LAYO BOBO [facility] : 1945 Age/S: 73 / F [address] Unit #: [id number] Loc: [place] [address] Phys: Geri Dubose MD Acct: [id number] Dis Date: Status: ADM IN PHONE #: [phone] Exam Date: 03/01/2019 193 FAX #: [phone] Reason: BIANCA EXAMS: CPT CODE: [id number] RETRO LTD 34136 <Continued> CC: Geri Dubose MD; Tong Bradshaw Technologist: Jose Raya Trnscb Date/Time: 03/01/2019 (1945) t.SDR.RR31 Orig Print D/T: S: 03/01/2019 (1948) Probe: PAGE 2 Signed Report [id number] 16:15:00* Test Item Value Reference Range Interpretation Comments GLUBED (test code = GLUBED) 197 mg/dL 74-106 H Performed by certified brake press operator at [facility] AG HEPAT B [id number] 15:15:00* Test Item Value Reference Range Interpretation Comments AG HEPAT B SURF (test code = HBSAG) Nonreactive Index Nonreactive [id number] 12:19:00* Test Item Value Reference Range Interpretation Comments GLUBED (test code = GLUBED) 208 mg/dL 74-106 H Performed by certified brake press operator at [facility] [id number] 08:24:00* Test Item Value Reference Range Interpretation Comments GLUBED (test code = GLUBED) 157 mg/dL 74-106 H Performed by certified brake press operator at [facility] BASIC METABOLIC [id number] 07:55:00* Test Item Value Reference Range Interpretation Comments SODIUM (test code = NA) 138 mmol/L 136-145 N POTASSIUM (test code = K) 3.7 mmol/L 3.5-5.1 N CHLORIDE (test code = CL) 99.0 mmol/L 98-107 N CARBON DIOXIDE (test code = CO2) 30.0 mmol/L 21-32 N ANION GAP (test code = GAP) 12.7 10-20 N GLUCOSE (test code = GLU) 159 mg/dL 74-106 H BLOOD UREA NITROGEN (test code = BUN) 36 mg/dL 7-18 H GLOMERULAR FILTRATION RATE (test code = GFR) 6 mL/min >=60 Estimated GFR by using Modified MDRD formula.Chronic kidney disease is defined as either kidney damageor GFR <60 mL/min/1.73 m2 for >3 months. CREATININE (test code = CREAT) 6.90 mg/dL 0.55-1.02 H Note change in reference range due to change in reagent. BUN/CREATININE RATIO (test code = BUN/CREA) 5.2 10-20 L CALCIUM (test code = CA) 9.1 mg/dL 8.5-10.1 N PT EDIN NOTIFIED ANNIE [id number] V.LAB.[facility] 03/01/19 0550[facility] METABOLIC PANEL 2019-03-01 07:47:00* Test Item Value Reference Range Interpretation Comments SODIUM (test code = NA) 138 mmol/L 136-145 N POTASSIUM (test code = K) 3.7 mmol/L 3.5-5.1 N CHLORIDE (test code = CL) 99.0 mmol/L 98-107 N CARBON DIOXIDE (test code = CO2) mmol/L 21-32 ANION GAP (test code = GAP) 10-20 GLUCOSE (test code = GLU) mg/dL 74-106 BLOOD UREA NITROGEN (test code = BUN) mg/dL 7-18 GLOMERULAR FILTRATION RATE (test code = GFR) mL/min >=60 CREATININE (test code = CREAT) mg/dL 0.55-1.02 BUN/CREATININE RATIO (test code = BUN/CREA) 10-20 CALCIUM (test code = CA) mg/dL 8.5-10.1 PT EDIN NOTIFIED ANNIE [id number] V.LAB.[facility] 03/01/19 0550[facility] W/AUTO DIFF 2019-03-01 07:18:00* Test Item Value Reference Range Interpretation Comments WHITE BLOOD CELL (test code = WBC) 9.9 K/mm3 4.5-12.5 N RED BLOOD CELL (test code = RBC) 3.12 mill/mm3 3.7-5.2 L HEMOGLOBIN (test code = HGB) 9.5 gram/dL 11.5-15.5 L HEMATOCRIT (test code = HCT) 28.6 % 36.0-46.0 L MEAN CELL VOLUME (test code = MCV) 91.7 fL 80-98 N MEAN CELL HGB (test code = MCH) 30.4 picogram 27.0-33.0 N MEAN CELL HGB CONCETRATION (test code = MCHC) 33.2 gram/dL 33.0-36. 0 N RED CELL DISTRIBUTION WIDTH (test code = RDW) 14.0 % 11.6-16. 2 N RED CELL DISTRIBUTION WIDTH SD (test code = RDW-SD) 47.6 fL 37 .0-51.0 N PLATELET COUNT (test code = PLT) 270 K/mm3 150-450 MEAN PLATELET VOLUME (test code = MPV) 9.5 fL 6.7-11.0 N NEUTROPHIL % (test code = NT%) 57.4 % 39.0-69.0 N IMMATURE GRANULOCYTE % (test code = IG%) 0.2 % 0.0-5.0 N LYMPHOCYTE % (test code = LY%) 31.9 % 25.0-55.0 N MONOCYTE % (test code = MO%) 5.6 % 0.0-10.0 N EOSINOPHIL % (test code = EO%) 4.7 % 0.0-5.0 N BASOPHIL % (test code = BA%) 0.2 % 0.0-1.0 N NUCLEATED RBC % (test code = NRBC%) 0.0 % 0-0 N NEUTROPHIL # (test code = NT#) 5.66 K/mm3 1.8-7.7 N IMMATURE GRANULOCYTE # (test code = IG#) 0.02 x10 3/uL 0-0.03 N LYMPHOCYTE # (test code = LY#) 3.14 K/mm3 1.0-5.0 N MONOCYTE # (test code = MO#) 0.55 K/mm3 0-0.8 N EOSINOPHIL # (test code = EO#) 0.46 K/mm3 0.0-0.5 N BASOPHIL # (test code = BA#) 0.02 K/mm3 0.0-0.2 N NUCLEATED RBC # (test code = NRBC#) 0.00 K/mm3 0.0-0.1 N PT MARLENYICK NOTIFIED [id number] V.LAB.KP2 03/01/19 [id number] 16:12:00* Test Item Value Reference Range Interpretation Comments GLUBED (test code = GLUBED) 168 mg/dL 74-106 H [facility]~ [id number] 14:25:00* Test Item Value Reference Range Interpretation Comments GLUBED (test code = GLUBED) 168 mg/dL 74-106 H Performed by certified brake press operator at [facility] [id number] 11:19:00* Test Item Value Reference Range Interpretation Comments TROPONIN-I (test code = TROPI) <0.015 ng/mL 0.00-0.056 N COMMENTS TO FLEX O WRITER OPERATOR: COLLECT 3 HOURS AFTER PREVIOUS [id number] 07:24:00* Test Item Value Reference Range Interpretation Comments TROPONIN-I (test code = TROPI) <0.015 ng/mL 0.00-0.056 N COMMENTS TO FLEX O WRITER OPERATOR: COLLECT 3 HOURS AFTER PREVIOUS SAMPLECREATINE KINASE (CK)2019-02-28 01:32:00* Test Item Value Reference Range Interpretation Comments CREATINE KINASE (CK) (test code = CK) 64 U/L 26-192 N - CT HEAD/BRAIN W/O [id number] 23:30:00 Name: LAYO BOBO [facility] : 1945 Age/S: 73 / F [address] [facility] Unit #: [id number] Loc: [address] Phys: Ellis Caldera MD [place], [place] [address] Acct: [id number] Dis Date: Status: REG ER PHONE #: Exam Date: 02/27/2019 1347 FAX #: Reason: Altered Mental Status EXAMS: CPT CODE: [id number] CT HEAD/BRAIN W/O CONT 39920 EXAM: - CT HEAD/BRAIN W/O CONT Location code:C3 HISTORY: 73 years -old Female with Altered Mental Status TECHNIQUE: Axial CT images from the skull base to the vertex without intravenous contrast. Coronal and sagittal reformatted images were created from the data set. One or more of the following dose reduction techniques were used: Automated exposure control, adjustment of the mA and/or kV according to patient size, and/or utilization of iterative reconstruction technique. [facility] PARISON: 02/01/2014 FINDINGS: Intracranial: No abnormal brain parenchymal density. No evidence of acute infarction, intracranial hemorrhage, mass or mass effect, or abnormal extra-axial fluid collection. The ventricular system and sulci are prominent compatible cere bral volume loss.. There is mild diminished attenuation involving the periventricular and subcortical white matter compatible with mild microv ascular chronic ischemic changes. The density in the larger dural sinuses is grossly normal. Bones: There is no evidence of acute displaced calvarial fracture. Sinuses: The visualized portions of the paranasal sinuses demonstrate no significant opacification.The mastoid air cells are clear. Orbits/Soft Tissues: The visualized orbits show no significant abnormalities. The visualized soft tissues are unrema rkable. IMPRESSION: 1. Mild cerebral volume l oss and microvascular chronic ischemic changes. No intracranial hemorrh age or other acute intracranial abnormality. PAGE 1 Signed Report (CONTINUED) Name: LAYO BOBO [facility] : 1945 Age/S: 73 / F [address] [facility] [address] Unit #: [id number] Loc: [address] Phys: Ellis Caldera MD [place] [address] Acct: [id number] Dis Date: Stat us: REG ER PHONE #: Exam Date: 02/27/2019 2327 FAX #: Reason: Altered M ental Status EXAMS: CPT CODE: [id number] CT HEAD/BRAIN W/O CONT 75014 <Continued> at 2330 Reported and signed by: Nikia Kelly MD CC: Ellis Caldera MD; Tong Bradshaw Technologist:Riccardo Gaxiola CTDI: DLP: Trnscb Date/Time: 02/27/2019 (2330) t.SDR.RXC2 Orig Print D/T: S: 02/27/2019 (4263) PAGE 2 Signed Report - XR CHEST 1 [id number] 23:27:00 FAX: Ellis Mendoza MD [phone] [employer]: [place] St: REG FAX: Tong Balbuena MD Name: LAYO BOBO [facility] : 1945 Age/S: 73/F [address] [facility] [facility] [address] Unit #: [id number] Loc: DEV [address] Phys: Ellis Caldera MD [place], [place] [address] Acct: [id number] Dis Date: Status: REG ER PHONE #: Exam Date: 02/27/2019 2315 FAX #: Reason: Altered Mental Status EXAMS: CPT CODE: [id number] XR CHEST 1 V 95195 HISTORY: Altered mental status Location: C3 COMPARISON:05/30/2016 FINDINGS: 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 Left approach dialysis catheter is noted. Previously seen right-sided implanted port is been removed. Heart size and vascularity are within normal limits. The lungs are clear of focal consolidation. No effusion, pneumothorax, or acute osseous abnormality. IMPRESSION: 1. No focal consolidation. No other acute abnormalities. at 2922 Reported and signed by: Nikia Kelly MD CC: Ellis Caldera MD; Tong Bradshaw Technologist: Riccardo Norris nscrd Date/Time/By: 02/27/2019 (6925) : By: MicheletRXC2 Orig Print D/T: S: 02/27/2019 (1685) PAGE 1 Nicole d Report PROTHROMBIN [id number] 23:22:00* Test Item Value Reference Range Interpretation Comments PROTHROMBIN TIME PATIENT (test code = PTP) 11.3 seconds 9.0-13.0 N INTERNATIONAL NORMAL RATIO (test code = INR) 1.2 0.8-1.2 N The therapeutic range for oral anticoagulant therapy formost indications is an international normalized ratio (INR)of between 2.0 and 3.0. The recommended therapeutic INRrange for various clinical situations is listed below: Clinical Situation INR range Pulmonary e mbolism treatment (2.0-3.0)Venous thrombosis treatmentVenous thrombosis prophylaxis (high risk surgery)Prevention of systemic embolism from: Acute myocardial infarction Valvular heart disease Atrial fibrillation Mechanical prosthetic heart valves (2.5-3.5) IS PATIENT ON ANTICOAGULANTS? NTHROMBOPLASTIN TIME [id number] 23:22:00* Test Item Value Reference Range Interpretation Comments THROMBOPLASTIN TIME PARTIAL (test code = PTT) 24.3 seconds 25.5-34. 3 L Therapeutic Range for patients on Heparin Therapy is 2 to2.5 times their baseline PTT level. IS PATIENT ON ANTICOAGULANTS? NBASIC METABOLIC [id number] 23:22:00* Test Item Value Reference Range Interpretation Comments SODIUM (test code = NA) 138 mmol/L 128-145 N POTASSIUM (test code = K) 3.9 mmol/L 3.5-5.1 N CHLORIDE (test code = CL) 97.0 mmol/L 98-107 L CARBON DIOXIDE (test code = CO2) 29.7 mmol/L 22-29 H ANION GAP (test code = GAP) 15 mmol/L 10-20 N GLUCOSE (test code = GLU) 222 mg/dL 70-110 H BLOOD UREA NITROGEN (test code = BUN) 31 mg/dL 7-22 H GLOMERULAR FILTRATION RATE (test code = GFR) 7 mL/min >=60 Estimated GFR by using Modified MDRD formula.Chronic kidney disease is defined as either kidney damageor GFR <60 mL/min/1.73 m2 for >3 months. CREATININE (test code = CREAT) 6.08 mg/dL 0.55-1.3 H RESULT VERIFIED BY REPEAT ANALYSIS BUN/CREATININE RATIO (test code = BUN/CREA) 5.1 10-20 L CALCIUM (test code = CA) 8.8 mg/dL 8.0-10.5 N HEPATIC FUNCTION [id number] 23:22:00* Test Item Value Reference Range Interpretation Comments TOTAL PROTEIN (test code = PROT) 7.3 gram/dL 6.1-7.8 N ALBUMIN (test code = ALB) 3.5 g/dL 3.3-4.4 N GLOBULIN (test code = GLOB) 3.8 G/DL 1-10 N ALBUMIN/GLOBULIN RATIO (test code = A/G) 0.9 0.75-1.50 N BILIRUBIN TOTAL (test code = BILT) 0.80 mg/dL 0.2-1.2 N BILIRUBIN DIRECT (test code = BILD) 0.20 mg/dL 0.0-0.30 N SGOT/AST (test code = AST) 16 U/L 10-39 N SGPT/ALT (test code = ALT) 6 U/L 10-69 L ALKALINE PHOSPHATASE TOTAL (test code = ALKP) 87 U/L 50-139 N [id number] 23:22:00* Test Item Value Reference Range Interpretation Comments TROPONIN-I (test code = TROPI) <0.015 ng/mL 0.00-0.056 N BASIC METABOLIC [id number] 23:17:00* Test Item Value Reference Range Interpretation Comments SODIUM (test code = NA) 138 mmol/L 128-145 N POTASSIUM (test code = K) 3.9 mmol/L 3.5-5.1 N CHLORIDE (test code = CL) 97.0 mmol/L 98-107 L CARBON DIOXIDE (test code = CO2) 29.7 mmol/L 22-29 H ANION GAP (test code = GAP) 15 mmol/L 10-20 N GLUCOSE (test code = GLU) 222 mg/dL 70-110 H BLOOD UREA NITROGEN (test code = BUN) 31 mg/dL 7-22 H GLOMERULAR FILTRATION RATE (test code = GFR) 7 mL/min >=60 Estimated GFR by using Modified MDRD formula.Chronic kidney disease is defined as either kidney damageor GFR <60 mL/min/1.73 m2 for >3 months. CREATININE (test code = CREAT) 6.08 mg/dL 0.55-1.3 H BUN/CREATININE RATIO (test code = BUN/CREA) 5.1 10-20 L CALCIUM (test code = CA) 8.8 mg/dL 8.0-10.5 N HEPATIC FUNCTION [id number] 23:17:00* Test Item Value Reference Range Interpretation Comments TOTAL PROTEIN (test code = PROT) 7.3 gram/dL 6.1-7.8 N ALBUMIN (test code = ALB) 3.5 g/dL 3.3-4.4 N GLOBULIN (test code = GLOB) 3.8 G/DL 1-10 N ALBUMIN/GLOBULIN RATIO (test code = A/G) 0.9 0.75-1.50 N BILIRUBIN TOTAL (test code = BILT) 0.80 mg/dL 0.2-1.2 N BILIRUBIN DIRECT (test code = BILD) 0.20 mg/dL 0.0-0.30 N SGOT/AST (test code = AST) 16 U/L 10-39 N SGPT/ALT (test code = ALT) 6 U/L 10-69 L ALKALINE PHOSPHATASE TOTAL (test code = ALKP) 87 U/L 50-139 N [id number] 23:17:00* Test Item Value Reference Range Interpretation Comments TROPONIN-I (test code = TROPI) <0.015 ng/mL 0.00-0.056 N BASIC METABOLIC [id number] 23:12:00* Test Item Value Reference Range Interpretation Comments SODIUM (test code = NA) 138 mmol/L 128-145 N POTASSIUM (test code = K) 3.9 mmol/L 3.5-5.1 N CHLORIDE (test code = CL) 97.0 mmol/L 98-107 L CARBON DIOXIDE (test code = CO2) 29.7 mmol/L 22-29 H ANION GAP (test code = GAP) 15 mmol/L 10-20 N GLUCOSE (test code = GLU) 222 mg/dL 70-110 H BLOOD UREA NITROGEN (test code = BUN) 31 mg/dL 7-22 H GLOMERULAR FILTRATION RATE (test code = GFR) 7 mL/min >=60 Estimated GFR by using Modified MDRD formula.Chronic kidney disease is defined as either kidney damageor GFR <60 mL/min/1.73 m2 for >3 months. CREATININE (test code = CREAT) 6.08 mg/dL 0.55-1.3 H BUN/CREATININE RATIO (test code = BUN/CREA) 5.1 10-20 L CALCIUM (test code = CA) 8.8 mg/dL 8.0-10.5 N HEPATIC FUNCTION [id number] 23:12:00* Test Item Value Reference Range Interpretation Comments TOTAL PROTEIN (test code = PROT) gram/dL 6.4-8.2 ALBUMIN (test code = ALB) g/dL 3.4-5.0 GLOBULIN (test code = GLOB) G/DL 1-10 ALBUMIN/GLOBULIN RATIO (test code = A/G) 0.75-1.50 BILIRUBIN TOTAL (test code = BILT) mg/dL 0.0-1.0 BILIRUBIN DIRECT (test code = BILD) mg/dL 0.0-0.20 SGOT/AST (test code = AST) IUnit/L 15-37 SGPT/ALT (test code = ALT) IUnit/L 12-78 ALKALINE PHOSPHATASE TOTAL (test code = ALKP) IUnit/L 45-117 [id number] 23:12:00* Test Item Value Reference Range Interpretation Comments TROPONIN-I (test code = TROPI) ng/mL 0-0.045 CBC W/AUTO [id number] 23:03:00* Test Item Value Reference Range Interpretation Comments WHITE BLOOD CELL (test code = WBC) 8.0 K/mm3 4.5-12.5 N RED BLOOD CELL (test code = RBC) 3.16 mill/mm3 3.7-5.2 L HEMOGLOBIN (test code = HGB) 9.8 gram/dL 11.5-15.5 L HEMATOCRIT (test code = HCT) 29.0 % 36.0-46.0 L MEAN CELL VOLUME (test code = MCV) 91.8 fL 80-98 N MEAN CELL HGB (test code = MCH) 31.0 picogram 27.0-33.0 N MEAN CELL HGB CONCETRATION (test code = MCHC) 33.8 gram/dL 33.0-36. 0 N RED CELL DISTRIBUTION WIDTH (test code = RDW) 13.9 % 11.6-16. 2 N RED CELL DISTRIBUTION WIDTH SD (test code = RDW-SD) 47.5 fL 37 .0-51.0 N PLATELET COUNT (test code = PLT) 177 K/mm3 150-450 N MEAN PLATELET VOLUME (test code = MPV) 10.1 fL 6.7-11.0 N NEUTROPHIL % (test code = NT%) 66.4 % 39.0-69.0 N LYMPHOCYTE % (test code = LY%) 25.8 % 25.0-55.0 N MONOCYTE % (test code = MO%) 5.6 % 0.0-10.0 N EOSINOPHIL % (test code = EO%) 1.6 % 0.0-5.0 N BASOPHIL % (test code = BA%) 0.3 % 0.0-1.0 N NEUTROPHIL # (test code = NT#) 5.30 K/mm3 1.8-7.7 N LYMPHOCYTE # (test code = LY#) 2.06 K/mm3 1.0-5.0 N MONOCYTE # (test code = MO#) 0.45 K/mm3 0-0.8 N EOSINOPHIL # (test code = EO#) 0.13 K/mm3 0.0-0.5 N BASOPHIL # (test code = BA#) 0.02 K/mm3 0.0-0.2 N MANUAL DIFF REQUIRED (test code = MDIFF) NO XR Lumbar Spine 2 Or 3 [id number] 15:59:59Hm Interface, Radiology Results - 02/21/2019 4:03 PM CDTEXAMINATION: XR LUMBAR SPINE 2 OR 3 VWCLINICAL HISTORY: low back painCOMPARISON: None.FINDINGS:3 view examination of the lumbar spine performed.5 lumbar vertebrae are present. Lordosis well- maintained. No compressive abnormality. Mild disc space narrowing L4-5 and L5- S1.Mild bilateral facet hypertrophy L4-5 and L5-S1.No compressive abnormality.No spondylolisthesis.Numerous surgical clips in the pelvis. Cholecystectomy clips right upper quadrant.There is a vascular stent in the lower lumbar region.. Diffuse aortic atherosclerosisIMPRESSION:Mild degenerative changes L4-5 and L5- S1No compressive abnormality lumbar spinePostsurgical changes throughout the abdomen.AtherosclerosisVascular stents at the level of the left common iliac [id number] MethodistCv stress [id number] 15:46:26* Test Item Value Reference Range Interpretation Comments Resting HR (test code = 0616602256) 59 Resting BP (test code = 5281819350) 187 Peak MET Achieved (test code = 1481361762) 1 Protocol Name (test code = 1317573105) LEXISCAN Time in Exercise Phase (test code = 2137080623) 00:01:07 Max Systolic BP (test code = 7471740429) 223 Max Diastolic BP (test code = 0526900970) 94 Max Heart Rate (test code = 2419621735) 83 Max Predicted Heart Rate (test code = 4211327180) 149 Target HR Formula (test code = 2378473880) (220 - Age)*100% Test Indication (test code = 5408127150) Arrhy During Ex (test code = 3790562909) none ECG Interp Before EX (test code = 2431609971) T wave inversion ECG Interp During Ex (test code = 3358315986) none Ex Summary Comment (test code = 8449562257) STRESS IMAGES TO FOLLOW Chest Pain Statement (test code = 9444958294) non-limiting Overall HR Response to Exercise (test code = 7217595547) appropriat e Overall BP Response To Exercise (test code = 698150847 7) normal resting BP - appropriate response Reason for Termination (test code = 0395368236) Protocol completed Stress Test Impression (test code = 0294087579) STRESS IMAGES TO FOLLOW-- [facility] Pe [id number] 13:23:34Hm Interface, Radiology Results - 02/09/2019 1:26 PM CDTEXAMINATION: CT ANGIOGRAM PE CHESTCLINICAL HISTORY: sobTECHNIQUE: CT angiographic images of the chest are obtained during intravenous administration of iodinated contrast. Computerized reformatted images and 3-D images were also obtained and archived. CT pulmonary embolus protocol.CT scans are performed using radiation dose reduction techniques. Technical factors are evaluated and adjusted to ensure appropriate moderation of exposure. Automated dose management technology is applied to adjust radiation exposure while achieving a diagnostic quality image.COMPARISON: None.FINDINGS:Visualized portions of the thyroid gland are unremarkable. The thoracic aorta demonstrates atherosclerotic vascular change. There is no aneu rysmal dilatation or dissection.Pulmonary arteries are well opacified. There is no evidence of any pulmonary embolism. The heart has no pericardial effusion. Th ere is no pleural effusion or pneumothorax.The visualized portions of the liver, spleen and adrenal glands are unremarkable. The visualized kidneys are unremark able.The left lung zone does not have any focal area of consolidation, pleural e ffusion or pneumothorax.The right lung zone is clear. There is no evidence of a pneumothorax. There are changes of prior median sternotomy.IMPRESSION:1. There i s no evidence of any pulmonary embolism.2. The thoracic aorta has no aneurysmal dilatation atherosclerotic vascular changes are present.3. The visualized great vessels are unremarkable.4. The lung zones do not have any focal consolidation [id number] [facility] lab [id number] 15:11:36CARDIOLOGY PROCEDURE NOTE DATE OF PROCEDURE: 02/03/2019 REFERRING PHYSICIAN: Dr. Chaparro Stinson PROCEDURES PERFORMED: 1. Ultrasound guided R femoral artery access 2. Selective angiography of saphenous vein graft to ramus intermedius 3. Successful PCI of the the proximal SVG to RI with drug eluting stent and placem ent of distal embolic protection device 4. Intravascular ultrasound (IVUS) of th e saphenous vein graft 5. Successful closure of _ arterial access site with a _ Closure device. 6. Conscious Sedation CPT Codes: 23213 + 77401 X 5 (87 minutes; Sedation Start time: 1401; Sedation End time 1528) INDICATION FOR PROCEDURE: Abn ormal stress test, NSTEMI OPERATORS: Thaddeus Elizabeth MD ACCESS: 6 Fr RFA Pre-Proced ure Diagnosis:1. CAD s/p CABG2. NSTEMI3. Abnormal stress test Post-Procedure Di agnosis: S/p successful PCI of the SVG to RI with placement of one KISHAN CONCLUSI ONS 1. Coronary artery disease as described below includin. Successful PCI t o the ostial SVG to RI 70-80% stenosis (LOUIE 3 flow prior to the intervention) w ith a 3.25 x 18 mm Saida KISHAN resulting in <10% stenosis and LOUIE 3 flow RECOMMENDATIONS 1. Aspirin 81 mg daily life-long 2. Clopidogrel 75 mg daily for at least 12 months 3. Aggressive risk factor modification DESCRIPTION OF THE PROCEDURE The risks, benefits and objectives of the procedure were discussed with Mrs Bobo in details. Patient provided both verbal and written informed consent to proceed. Moderate sedation was provided with a total of intravenous midazolam 3 mg and fentanyl 100 mcg. Heart rate, rhythm, and pulse oximetry were continuously recorded and monitored in real time throughout the procedure by a trained dedicated interventional cardiology catheterization laboratory RN under direct supervision of Dr Elizabeth. Blood pressure was monitored in 5 minute increments. Total sedation time was 87 minutes. There was no complications from the sedation. Lidocaine 1% was used for local anesthesia. Utilizing ultrasound guidance and modified Seldinger technique, a long 6 Mosotho sheath was placed into the right femoral artery utilizing a micropuncture kit. Limited Right common femoral angiography was performed in the MCKEON projection. Selective angiography was performed in multiple projections with 6-Mosotho LCB catheter to selectively engage the SVG to RI. FINDINGS: SELECTIVE CORONARY ANGIOGRAPHY: SVG to RI with 70-80% proximal stenosis. INTERVENTION: A decision was made to proce ed with PCI of the SVG to RI. The SVG to RI was then engaged with a 6 Fr LCB Sam de catheter. IV Heparin was used for anticoagulation. Patient was loaded with Cl opidogrel 600 mg PO x 1. First, the saphenous vein graft was wired successfully with a 0.014 choice floppy wire. Over the choice floppy wire, and JOSI catheter was advanced. The IVUS catheter was flushed appropriately prior to being intr oduced into the guide catheter. The IVUS device pullback was then performed and images were reviewed. The images demonstrated significant disease of the proxi mal saphenous vein graft with a minimal luminal area less than 4 mm2. We are ab le to appropriately size the saphenous vein graft as well with the IVUS. Next, a 4 mm spiderFx filter was then advanced over the choice floppy wire and deploye d in the saphenous vein graft. After that, a 3.25 x 18 mm Saida drug-eluting s tent was advanced to the ostial saphenous vein graft and deployed at nominal pre ssure. Next, a 3.75 x 8 mm balloon was used to post dilate the stent. After th at, 4.5 x 8 mm noncompliant balloon was used to post dilate the proximal stent. Final angiographic images were obtained. There was LOUIE 3 flow distally, with no evidence of dissection, perforation, or distal embolization. All catheters and guidewires were removed. After the procedure was completed hemostasis was succes sfully achieved utilizing a Perclose proglide device. ASSESSMENT AND PLAN:73-ye ar-old female with past medical history of end-stage renal disease who presented with shortness of breath and chest discomfort with mildly elevated cardiac enzy mes. Stress test demonstrated reversible defect in the anterior wall. The macie ent is status post successful PCI to the ostial saphenous vein graft to the nilton s intermedius with placement of a 3.25 x 18 mm drug-eluting stent was postdilate d to 4.5 mm. A SpiderFx filter was placed for distal embolic protection. The pa tient was loaded with Plavix will be maintained on dual antiplatelet therapy for at least 12 months. We will transfer the patient back to the floor for continu ed monitoring and dialysis.[facility] MethodistActivated clotting iefr1180-03-01 15:00:47* Test Item Value Reference Range Interpretation Comments Activated clotting time (test code = 5298) 252.0 74.0- 125.0 sec H Meter ID: [id number]: [facility] Interpretation (test code = 89057-5) Abnormal [facility] afunbeocu1507-59-47 16:06:09CARDIOLOGY PROCEDURE NOTE DATE OF PROCEDURE: 02/01/19 REFERRING PHYSICIAN: Dr. Stinson PROCEDURES PERFORMED:1. Ultrasound guided R femoral access2. Selective Right and Left coronary angiography3. Selective angiography of bypass grafts4. Left Heart catheterization 5. Conscious Sedation CPT Codes: 82889 + 97869 X 2 (41 minutes; Sedation Start time: 1502; Sedation End time 1543) INDICATION FOR PROCEDURE: NSTEMI, abnormal stress test OPERATORS:Interventional cardiology: Dr. Thaddeus Elizabeth ACCESS: 6 Fr RFA Pre-Procedure Diagnosis:1. NSTEMI2. Abnormal stress test3. CAD s/p CABG4. ESRD on HD Post-Procedure Diagnosis: Coronary artery dis ease as described below DESCRIPTION OF THE PROCEDUREThe risks, benefits and obje ctives of the procedure were discussed with Mrs Bobo in details. Patient prov ided both verbal and written informed consent to proceed. Moderate sedation was provided with a total of intravenous midazolam 2 mg and fentanyl 50 mcg. Heart r ate, rhythm, and pulse oximetry were continuously recorded and monitored in real time throughout the procedure by a trained dedicated interventional cardiology catheterization laboratory RN under direct supervision of Dr Elizabeth. Blood press ure was monitored in 5 minute increments. Total sedation time was 41 minutes. Th ere was no complications from the sedation. Lidocaine 1% was used for local anes thesia. Utilizing ultrasound guidance and modified Seldinger technique, 6 Mosotho sheath was placed into the right femoral artery utilizing a micropuncture kit.L imited Right common femoral angiography was performed in the MCKEON projection. Teresa ective left and right coronary angiography was performed in multiple projections with 6-Mosotho JL4 catheter to selectively engage the LMCA and JR 4 catheter to selectively engage the RCA. The JR4 catheter was then used to engaged 2 SVG and used to cannulate the DIAZ to LAD graft. A 6 Fr LCB catheter was used to engage the 3rd SVG graft. Next, a 6 Fr pigtail catheter was used to cross the AV and en ter the LV at which time a left ventriculogram was performed. After the procedur e was completed hemostasis was successfully achieved utilizing 6 Mosotho MynxGri p closure device. FINDINGS: HEMODYNAMICS: LVEDP = 15-20 mm Hg SELECTIVE CORONARY ANGIOGRAPHY:Left main coronary artery is a large-caliber vessel that originates from the left sinus of Valsalva. It appears to trifurcate into left anterior de scending (LAD), ramus and left circumflex artery. There is no significant diseas e in the left main coronary artery.LAD is a large caliber vessel that gives a me dium sized diagonal branch and septal before it is occluded. There is 80% proxim al LAD disease. Left circumflex artery is a medium-caliber vessel that is occlud ed in the proximal segment. Right coronary artery (RCA) originates from the righ t sinus of Valsalva. RCA is a large caliber vessel that is occluded within stent in the mid section. The SVG to RCA supplies a large distal branch and territory. There is a 50% mid stenosis. The SVG to OM is patent with mild degenerative di sease and valves that slow flow. There is a stent in the proximal portion with m ild ISR. The SVG to ramus (?) has a 70-80% ostial stenosis. There is diffuse dis ease of the ramus. The DIAZ to LAD is patent. There is mod diffuse disease of th e distal LAD. ASSESSMENT AND PLAN:Recommend PCI to the ostial SVG to ramus. Plan for procedure on Wednesday. [facility] contrast and 3D if hqljin1605-76-27 17:52:32* Test Item Value Reference Range Interpretation Comments Ao Root Diameter (test code = 5278533360) 3.37 cm AoV Area, Vmax (test code = 8309019205) 2.60 cm2 AoV Area, VTI (test code = 2207528293) 2.87 cm2 AoV Mean PG (test code = 8083921338) 3.95 mmHg AoV Peak PG (test code = 2599585693) 7.39 mmHg AoV Vmax (test code = 8452162388) 1.36 m/s AoV VTI (test code = 2679863503) 0.29 m BSA Miranda (test code = 6241868156) 2.05 m2 BSA (test code = 2047274009) 1.99 m2 IVS,d (test code = 7894866990) 1.63 cm IVS/LVPW,2D (test code = 8395633110) 1.43 Left Atrium Dimension Anterior (test code = 8664977212) 3.68 cm LV,d (test code = 5954709464) 4.43 cm LV EF,2D (test code = 1540513800) 80.92 % LV,s (test code = 0162785993) 2.55 cm LVOT area (test code = 6724778947) 3.94 cm2 LVOT Diam,S (test code = 2797288243) 2.24 cm LVOT Vmax (test code = 4325563562) 0.90 m/s LVOT VTI (test code = 6362369441) 0.21 m LVPWD,d (test code = 6986088564) 1.14 cm PV Pk Grad (test code = 4195890667) 2.67 mmHg PV VMAX (test code = 9569907103) 0.82 m/s RVSP (TR) (test code = 2197768770) 26.24 mmHg TR Vpeak (test code = 3622178371) 2.01 mm/s MV E A ratio (test code = 5276888407) 0.85 TR pk grad (test code = 3865201377) 16.24 mmHg AoV area i VTI BSA Hilaria (test code = 7817665233) 1.44 cm2/m2 BMI (test code = 6389827482) 28.43 kg/m2 E wave decelartion time (test code = 7476353029) 211.66 msec MV Peak A Martín (test code = 8514980060) 0.93 m/s MV valve area p 1/2 method (test code = 6040973690) 3.58 cm2 MV Peak E Martín (test code = 8851108032) 0.79 m/s MV stenosis pressure 1/2 time (test code = 1172743082) 61.38 ms AV LVOT peak gradient (test code = 5118338579) 3.21 mmHg Ascending aorta (test code = 5037316398) 3.58 cm RVSP (test code = 7070784490) 26.24 mmHg Ao Root Diameter (test code = 8856760511) 3.37 cm LV SYS VOL (test code = 1792970945) 23.51 ml LV STEPHENSON VOL (test code = 9214944308) 89.29 ml LA area s A4C (test code = 5283136033) 15.83 cm2 LV SI Teich 2D (test code = 4242760122) 33.12 ml/m2 LV SV Teich 2D (test code = 7507411357) 65.78 ml LV Vol s Teich PSAX (test code = 6648439396) 23.51 ml LVOT SI (test code = 6027457563) 41.50 ml/m2 BSA Haycock (test code = 1897968347) 2.04 m2 AoV Vmn (test code = 7421888951) 0.94 IVS s 2D (test code = 6874629312) 2.14 LV FS Teich 2D (test code = 0516710091) 42.43 MV AE ratio (test code = 0917663321) 1.18 LV FS Cube 2D (test code = 7263925257) 42.43 LVOT Vmn (test code = 3517496199) 0.59 Pt Size (test code = 9285345472) 172.72 Pt Wt (test code = 8738508549) 84.82 Aov area Vmn (test code = 5374095938) 2.47 cm2 LA A_P score P (test code = 5240040320) 1.07 LVOT mean grad (test code = 1938095826) 1.61 mmHg MAX Pred HR (test code = 3909474088) 148.15 85 of MPHR (test code = 9307580778) 125.93 AoV area I VMN bsa (test code = 3077835121) 1.25 cm2/m2 Calc MPHR (test code = 3023057815) 148.15 bpm IVS pct thck PLAX (test code = 1171612833) 31.08 % LV SI Cube 2D (test code = 1304912888) 35.51 ml/m2 LV SV Cube 2D (test code = 1430260329) 70.54 ml LV vol d cube 2D (test code = 5283391549) 87.17 ml LV vol s cube 2D (test code = 2490726433) 16.63 ml LVPW pct thck PLAX (test code = 8953853203) 64.01 % LVPW s PLAX (test code = 5126364962) 1.87 cm MV Decel slope (test code = 7015116125) 3.72 m/s2 Pred Exer Dur R1 (test code = 6978868639) 6.62 Pred METS R1 (test code = 7840543187) 5.36 LA Vol MOD A4C (test code = 4712272986) 40.08 ml Velocity Ratio (V1/V2) (test code = 4689) 0.66 m/s EF (test code = 0406299124) 73.67 % E/A ratio (test code = 1979010913) 0.85 GARETT (test code = GARETT) Left ventricular systolic function is normal. Left Ventricular ejection fraction is 60 - 65%. There is mild left ventricular concentric hypertrophy. Spectral Doppler shows impaired relaxation pattern of left ventricular diastolic filling. Global right ventricle systolic function is mildly reduced. The mitral valve appears calcified. [facility] MethodistHepatitis B core antibody fcufj8811-79-18 19:28:02* Test Item Value Reference Range Interpretation Comments Hepatitis B core total Ab (test code = 15733-7) Non-reactive Non-re active [facility] MethodistHepatitis B core antibody WfF6849-27-51 19:28:02* Test Item Value Reference Range Interpretation Comments Hepatitis B core IgM (test code = 61604-9) Non-reactive Non-reactiv e [facility] B surface dstcclhy9357-43-97 19:18:50* Test Item Value Reference Range Interpretation Comments Hepatitis B surface Ab (test code = 32945-2) Reactive Non-react yousuf A Lab Interpretation (test code = 96710-0) Abnormal [facility] MethodistBedside Vcihbfc4562-50-54 11:51:00* Test Item Value Reference Range Interpretation Comments Bedside Glucose (test code = 16632-3) 288 70-120 H Meter ID: [id number] [facility] Culture 2018-11-14 09:29:00* Test Item Value Reference Range Interpretation Comments Blood Culture (test code = 63897012) NO GROWTH AFTER 72 HOURS [facility] Hospital[facility] Natriuretic Zhpzvro9938-11-82 06:16:00* Test Item Value Reference Range Interpretation Comments B-Type Natriuretic Peptide (test code = 85696-0) 30.1 0-100 [facility] Wvner4057-17-50 06:10:00* Test Item Value Reference Range Interpretation Comments Sodium Level (test code = 2951-2) 135 136-145 L [facility] HospitalPotassium Mulys8656-72-82 06:10:00* Test Item Value Reference Range Interpretation Comments Potassium Level (test code = 2823-3) 5.0 3.5-5.1 [facility] HospitalChloride Bwgej7628-47-01 06:10:00* Test Item Value Reference Range Interpretation Comments Chloride Level (test code = 2075-0) 97 98-107 L [facility] HospitalCarbon Dioxide Gpmut6039-53-95 06:10:00* Test Item Value Reference Range Interpretation Comments Carbon Dioxide Level (test code = 2028-9) 26 22-29 [facility] HospitalAnion Nxv2836-09-81 06:10:00* Test Item Value Reference Range Interpretation Comments Anion Gap (test code = 16364-5) 17.0 8-16 H [facility] HospitalBlood Urea Ezjoqxju8591-08-02 06:10:00* Test Item Value Reference Range Interpretation Comments Blood Urea Nitrogen (test code = 3094-0) 33 7-26 H [facility] HospitalCreatinine2019-05-27 06:10:00* Test Item Value Reference Range Interpretation Comments Creatinine (test code = 2160-0) 6.92 0.57-1.11 H [facility] HospitalBUN/Creatinine Siiyl8973-21-92 06:10:00* Test Item Value Reference Range Interpretation Comments BUN/Creatinine Ratio (test code = 3097-3) 5 6-25 L [facility] HospitalEstimat Glomerular Filtration Rate 2018-11-14 06:10:00* Test Item Value Reference Range Interpretation Comments Estimat Glomerular Filtration Rate (test code = 761701662) 6 >60 L Ranges were taken from the National Kidney Disease Education Program and the [facility]ney Foundation literature.Reference ranges:60 or greater: Mbmfwz19-35 ( for 3 consecutive months): Chronic kidney disease 15 or less: Kidney failureTexas Health Arlington Memorial HospitalGlucose Twmsz1544-88-03 06:10:00* Test Item Value Reference Range Interpretation Comments Glucose Level (test code = XJT8192) 147 74-118 H [facility] HospitalCalcium Edxvi5337-16-92 06:10:00* Test Item Value Reference Range Interpretation Comments Calcium Level (test code = 79281-2) 9.5 8.4-10.2 [facility] HospitalPhosphorus Nnuig8853-00-73 06:10:00* Test Item Value Reference Range Interpretation Comments Phosphorus Level (test code = NMI2041) 5.6 2.3-4.7 H [facility] HospitalMagnesium Txalv5809-88-93 06:10:00* Test Item Value Reference Range Interpretation Comments Magnesium Level (test code = 64400-2) 2.5 1.3-2.1 H [facility] HospitalWhite Blood Ggxos0670-50-74 05:51:00* Test Item Value Reference Range Interpretation Comments White Blood Count (test code = 6690-2) 12.51 4.8-10.8 H [facility] HospitalRed Blood Oojks8066-37-05 05:51:00* Test Item Value Reference Range Interpretation Comments Red Blood Count (test code = 789-8) 3.62 3.6-5.1 [facility] HospitalHemoglobin2019-05-27 05:51:00* Test Item Value Reference Range Interpretation Comments Hemoglobin (test code = 00453-9) 10.8 12.0-16.0 L [facility] HospitalHematocrit2019-05-27 05:51:00* Test Item Value Reference Range Interpretation Comments Hematocrit (test code = 4544-3) 32.2 34.2-44.1 L [facility] HospitalMean Corpuscular Dzpogb4373-30-78 05:51:00* Test Item Value Reference Range Interpretation Comments Mean Corpuscular Volume (test code = 787-2) 89.0 81-99 [facility] HospitalMean Corpuscular Jvstsrdrgd3273-08-99 05:51:00* Test Item Value Reference Range Interpretation Comments Mean Corpuscular Hemoglobin (test code = 785-6) 29.8 28-32 [facility] HospitalMean Corpuscular Hemoglobin Concent 2018-11-14 05:51:00* Test Item Value Reference Range Interpretation Comments Mean Corpuscular Hemoglobin Concent (test code = 786-4) 33.5 31-35 [facility] HospitalRed Cell Distribution Snmaf5562-22-05 05:51:00* Test Item Value Reference Range Interpretation Comments Red Cell Distribution Width (test code = 93559-1) 14.7 11.7 -14.4 H [facility] HospitalPlatelet Ipbzj8135-25-03 05:51:00* Test Item Value Reference Range Interpretation Comments Platelet Count (test code = 777-3) 260 140-360 [facility] HospitalNeutrophils (%) (Auto)2018-11-14 05:51:00 * Test Item Value Reference Range Interpretation Comments Neutrophils (%) (Auto) (test code = 36604-0) 55.2 38.7-80.0 [facility] HospitalLymphocytes (%) (Auto)2018-11-14 05:51:00 * Test Item Value Reference Range Interpretation Comments Lymphocytes (%) (Auto) (test code = 736-9) 37.1 18.0-39.1 [facility] HospitalMonocytes (%) (Auto)2018-11-14 05:51:00* Test Item Value Reference Range Interpretation Comments Monocytes (%) (Auto) (test code = 5905-5) 5.1 4.4-11.3 [facility] HospitalEosinophils (%) (Auto)2018-11-14 05:51:00 * Test Item Value Reference Range Interpretation Comments Eosinophils (%) (Auto) (test code = 713-8) 2.1 0.0-6.0 [facility] HospitalBasophils (%) (Auto)2018-11-14 05:51:00* Test Item Value Reference Range Interpretation Comments Basophils (%) (Auto) (test code = 706-2) 0.2 0.0-1.0 [facility] HospitalIM GRANULOCYTES %2018-11-14 05:51:00* Test Item Value Reference Range Interpretation Comments IM GRANULOCYTES % (test code = IM GRANULOCYTES %) 0.3 0.0- 1.0 [facility] HospitalNeutrophils # (Auto)2018-11-14 05:51:00* Test Item Value Reference Range Interpretation Comments Neutrophils # (Auto) (test code = 751-8) 6.9 2.1-6.9 [facility] HospitalLymphocytes # (Auto)2018-11-14 05:51:00* Test Item Value Reference Range Interpretation Comments Lymphocytes # (Auto) (test code = 46747-9) 4.6 1.0-3.2 H [facility] HospitalMonocytes # (Auto)2018-11-14 05:51:00* Test Item Value Reference Range Interpretation Comments Monocytes # (Auto) (test code = 742-7) 0.6 0.2-0.8 [facility] HospitalEosinophils # (Auto)2018-11-14 05:51:00* Test Item Value Reference Range Interpretation Comments Eosinophils # (Auto) (test code = 711-2) 0.3 0.0-0.4 [facility] HospitalBasophils # (Auto)2018-11-14 05:51:00* Test Item Value Reference Range Interpretation Comments Basophils # (Auto) (test code = 704-7) 0.0 0.0-0.1 [facility] HospitalAbsolute Immature Granulocyte (auto 2018-11-14 05:51:00* Test Item Value Reference Range Interpretation Comments Absolute Immature Granulocyte (auto (tanya t code = Absolute Immature Granulocyte (auto) 0.04 0-0.1 [facility] HospitalUrine Kgnuupn9776-87-88 09:52:00* Test Item Value Reference Range Interpretation Comments Urine Culture (test code = 630-4) Organism: ENTEROCOCCUS FAECALIS CHI [facility] NorthwestCT BRAIN YY5700-16-26 08:27:00 [facility] [address] [address] Patient Name: LAYO BOBO MR #: [id number] : 1945 Age/Sex: 73/F Req #: [id number] Adm Physician: TONG BRADSHAW MD Ordered by: Sunita Ayala NP Report #: [id number] Location: MED/SURG Room/Bed: [facility] Procedure: [id number] CT/CT BRAIN WO Exam Date: Exam Time: REPORT STATUS: Signed EXAMINATION: Head CT HISTORY: Dizziness COMPARISON: Head CT of 08/04/2017 TECHNIQUE: Multidete ctor axial images were obtained without contrast from the foramen magnum to th e vertex . The images were reconstructed using brain and bone algorithms. Thi n section brain images were reformatted into coronal and sagittal planes. Im age quality: Motion/streaking artifact limits the evaluation of the skull base and posterior cranial fossa. Dose modulation, iterative reconstruction, and/or weight based adjustment of the mA/kV was utilized to reduce the radiation dose to as low as reasonably achievable. FINDINGS: Parenchyma: 1. Persistent mild abutment of the matter chronic microvascular ischemic changes. 2. No mass or hemorrhage. No CT evidence of acute territorial vascul ar insult. Extra-axial spaces:No abnormal density. No extra-axi al fluid collections Brain volume: Mild generalized brain volume loss. Ventricles: No hydrocephalus or displacement. Arteries: No densi ty suggestive of thrombus. Atherosclerotic calcification of the vertebral and carotid arteries. Dural sinuses: No abnormal density. Extra-axial spaces: No abnormal density. Foramen magnum: No mass, Chiari malformati on, or basilar invagination. Sella: No obvious mass. Paranasal/ mastoid sinuses: Imaged portions unremarkable. Skull/Scalp: No lytic or blastic lesions. No fractures. IMPRESSION: 1. No acute intracranial abnormalities. 2. Mild chronic microvascular ischemic changes, stable compar ed to head CT of 08/04/2017. Signed by: Dr. Dario Gaspar M.D. on 11/13/2018 8:31 AM Dictated By: DARIO GASPAR MD 0 Transcribed By: KEN on 11/13/18830 COPY TO: SUNITA AYALA NP Differential Total Cells Ivdzefu6431-82-06 08:43:00* Test Item Value Reference Range Interpretation Comments Differential Total Cells Counted (test code = Differemily tial Total Cells Counted) 100 [facility] HospitalNeutrophils % (Manual)2018-11-12 08:43:00 * Test Item Value Reference Range Interpretation Comments Neutrophils % (Manual) (test code = 55140-1) 42 40-74 [facility] HospitalLymphocytes % (Manual)2018-11-12 08:43:00 * Test Item Value Reference Range Interpretation Comments Lymphocytes % (Manual) (test code = 737-7) 52 19-48 H [facility] HospitalMonocytes % (Manual)2018-11-12 08:43:00* Test Item Value Reference Range Interpretation Comments Monocytes % (Manual) (test code = 744-3) 3 3.4-9.0 L [facility] HospitalEosinophils % (Manual)2018-11-12 08:43:00 * Test Item Value Reference Range Interpretation Comments Eosinophils % (Manual) (test code = 714-6) 3 0-7 [facility] HospitalUrine SIW4406-22-22 19:43:00* Test Item Value Reference Range Interpretation Comments Urine WBC (test code = 5821-4) >50 0-5 H [facility] HospitalUrine RBG9115-22-66 19:43:00* Test Item Value Reference Range Interpretation Comments Urine RBC (test code = 55927-3) 6-10 0-5 H [facility] HospitalUrine Bqlkloqw5758-75-73 19:43:00* Test Item Value Reference Range Interpretation Comments Urine Bacteria (test code = 75143-4) MANY NONE H [facility] HospitalUrine Epithelial Huukm1480-73-61 19:43:00 * Test Item Value Reference Range Interpretation Comments Urine Epithelial Cells (test code = 25940-6) NONE NONE [facility] HospitalUrine Transitional Epithelial Cells 2018-11-11 19:43:00* Test Item Value Reference Range Interpretation Comments Urine Transitional Epithelial Cells (test code = 8249-5) FEW NONE H [facility] HospitalUrine Ebvpp3051-36-47 19:30:00* Test Item Value Reference Range Interpretation Comments Urine Color (test code = 5778-6) YELLOW YELLOW [facility] HospitalUrine Jonxhhw3905-85-66 19:30:00* Test Item Value Reference Range Interpretation Comments Urine Clarity (test code = 16744-7) SL CLOUDY CLEAR [facility] HospitalUrine Specific Gjzrdmu6328-09-30 19:30:00 * Test Item Value Reference Range Interpretation Comments Urine Specific [place] (test code = 5811-5) 1.025 1.010-1.02 5 [facility] HospitalUrine wX4478-25-71 19:30:00* Test Item Value Reference Range Interpretation Comments Urine pH (test code = 44394-8) 5.5 5-7 [facility] HospitalUrine Leukocyte Eitjxbsx0379-84-68 19:30:00* Test Item Value Reference Range Interpretation Comments Urine Leukocyte Esterase (test code = 69293-9) 2+ NEGATIV E H [facility] HospitalUrine Wbcacti6375-43-22 19:30:00* Test Item Value Reference Range Interpretation Comments Urine Nitrite (test code = 64619-2) NEGATIVE NEGATIVE [facility] HospitalUrine Czcgmee7529-07-44 19:30:00* Test Item Value Reference Range Interpretation Comments Urine Protein (test code = 06720-6) 2+ NEGATIVE H [facility] HospitalUrine Glucose (UA)2018-11-11 19:30:00* Test Item Value Reference Range Interpretation Comments Urine Glucose (UA) (test code = 33896-8) NEGATIVE NEGATIVE [facility] HospitalUrine Fhusgwe7899-14-22 19:30:00* Test Item Value Reference Range Interpretation Comments Urine Ketones (test code = 66534-4) TRACE NEGATIVE H [facility] HospitalUrine Jtkpxxuxsgxy6922-05-25 19:30:00* Test Item Value Reference Range Interpretation Comments Urine Urobilinogen (test code = 60527-2) 0.2 0.2-1 [facility] HospitalUrine Bbeznuatu6868-50-54 19:30:00* Test Item Value Reference Range Interpretation Comments Urine Bilirubin (test code = 1977-8) NEGATIVE NEGATIVE [facility] HospitalUrine Jijas3594-55-33 19:30:00* Test Item Value Reference Range Interpretation Comments Urine Blood (test code = 47086-0) TRACE NEGATIVE [facility] HospitalCHEST SINGLE (PORTABLE)2018-11-11 07:29:00 [place] [address] Patient Name: LAYO BOBO MR #: [id number] : 1945 Age/Sex: 73/F Req #: [id number] Adm Physician: TONG BRADSHAW MD Ordered by: Sunita Ayala [employer] Report #: [id number] Location: MED/SURG Room/Bed: [facility] Procedure: [id number] DX/CHEST SINGLE (PORTABLE) Exam Date: 11/11/18 Exam Time: 0700 REPORT STATUS: Signed Examination: Single AP view of the chest. COMPARISON: 10/31/2018 INDIC ATION: Concern for pneumonia DISCUSSION: Left internal jugular tu nneled hemodialysis catheter is unchanged in position. Lungs remain well-infla [place] and without focal airspace consolidation, pleural effusion, or pneumothora x. Post surgical changes of the mediastinum with atherosclerotic calcification of the thoracic aorta. No overt pulmonary edema. No acute osseous abnormal ity. IMPRESSION: No consolidative pneumonia. Signed by: Dr. Sunil Olivas M.D. on 11/11/2018 7:31 AM Dictated By: NIKKO OLIVAS MD Elect ronically Signed By: NIKKO OLIVAS MD on 11/11/18730 Transcribed By: KEN on 11/11/18730 COPY TO: SUNITA AYALA NP Hemoglobin A1c Kendoir3443-29-35 04:39:00* Test Item Value Reference Range Interpretation Comments Hemoglobin A1c Percent (test code = Hemoglobin A1c Percent) 8.3 4.0-7.0 H [facility] HospitalLipase2019-05-15 08:44:00* Test Item Value Reference Range Interpretation Comments Lipase (test code = 3040-3) 33 8-78 [facility] HospitalCreatine Kinase YK0834-10-62 19:03:00* Test Item Value Reference Range Interpretation Comments Creatine Kinase MB (test code = 48953-6) 0.50 0-5.0 [facility] HospitalTroponin J1475-94-46 19:03:00* Test Item Value Reference Range Interpretation Comments Troponin I (test code = TVH4211) 0.013 0-0.300 [facility] HospitalCreatine Dogcmw3399-06-81 18:50:00* Test Item Value Reference Range Interpretation Comments Creatine Kinase (test code = 2157-6) 27 29-168 L [facility] HospitalH[facility] B Surface Antibody, Quant 2018-11-01 07:41:00* Test Item Value Reference Range Interpretation Comments Hepatitis B Surface Antibody, Quant (test code = 5194-6) 103.3 Immunity>9.9 Status of Immunity Anti-HBs Level Inconsistent with Immunity 0.0 - 9.9Consistent with Immunity >9.9[facility] Core Total Iemplxwt7487-69-38 07:41:00* Test Item Value Reference Range Interpretation Comments Hepatitis B Core Total Antibody (test code = 73243-3) Negative Negative [facility] B Surface Djxqxmg7288-95-45 07:41:00* Test Item Value Reference Range Interpretation Comments Hepatitis B Surface Antigen (test code = 5196-1) Negative Negat yousuf [facility] B Core IgM Sjglqctu5753-07-53 07:41:00* Test Item Value Reference Range Interpretation Comments Hepatitis B Core IgM Antibody (test code = 88358-6) Negative Ne gative Performed at: HD - [facility] [address] [id number] Director: Rafa Zamora MD, Phone: [phone] Health Arlington Memorial HospitalCHES SINGLE (PORTABLE)2018-10-31 15:10:00 [place] [address] Patient Name: LAYO BOBO MR #: [id number] : 1945 Age/Sex: 73/F Req #: [id number] Adm Physician: Ordered by: LEAH SANTOS [employer] Report #: [id number] Location: ER Room/Bed: Procedure: [id number] DX/CHEST SINGLE (PORTABLE) Exam Date: 10/31/18 Bebe m Time: 1420 REPORT STATUS: Signed Examination: Single AP view of the chest. COMPARISON: 11/09/2017 IND ICATION: Weakness, nausea DISCUSSION: Interval removal of right s ubclavian port and placement of left internal jugular tunneled hemodialysis ca theter. The tip projects over the upper right atrium. Lungs are well-infl ated and without focal consolidation, pleural effusion, or pneumothorax. Posts urgical changes of the mediastinum with multiple surgical clips and sternotomy wires. Atherosclerotic calcification of the thoracic aorta. No overt pulmonary edema. No acute osseous abnormality. IMPRESSION: No acute card iopulmonary abnormality. Signed by: Dr. Nikko Olivas M.D. on 10/31/2018 3: 12 PM Dictated By: NIKKO OLIVAS MD 11 Transcribed By: KEN on 10/31/181511 COPY TO: LEAH SANTOS [employer] Total Hpwuhkwth1628-35-46 14:50:00* Test Item Value Reference Range Interpretation Comments Total Bilirubin (test code = 1975-2) 0.8 0.2-1.2 [facility] HospitalAspartate Amino Transf (AST/SGOT) 2018-10-31 14:50:00* Test Item Value Reference Range Interpretation Comments Aspartate Amino Transf (AST/SGOT) (test code = Aspartate Amino Transf (AST/SGOT)) 12 5-34 [facility] HospitalAlanine Aminotransferase (ALT/SGPT) 2018-10-31 14:50:00* Test Item Value Reference Range Interpretation Comments Alanine Aminotransferase (ALT/SGPT) (test code = 1742-6) 7 0-55 [facility] HospitalTotal Ohuitbq6374-09-00 14:50:00* Test Item Value Reference Range Interpretation Comments Total Protein (test code = 2885-2) 7.5 6.5-8.1 [facility] HospitalAlbumin2019-05-13 14:50:00* Test Item Value Reference Range Interpretation Comments Albumin (test code = 1751-7) 3.5 3.5-5.0 [facility] HospitalGlobulin2019-05-13 14:50:00* Test Item Value Reference Range Interpretation Comments Globulin (test code = 63627-0) 4.0 2.3-3.5 H [facility] HospitalAlbumin/Globulin Xxuod9818-96-82 14:50:00 * Test Item Value Reference Range Interpretation Comments Albumin/Globulin Ratio (test code = 1759-0) 0.9 0.8-2.0 [facility] HospitalAlkaline Pukmbaynlqj7672-41-54 14:50:00* Test Item Value Reference Range Interpretation Comments Alkaline Phosphatase (test code = 6768-6) 124 40-150 [facility] HospitalAmylase Lcwnp0433-96-83 14:50:00* Test Item Value Reference Range Interpretation Comments Amylase Level (test code = 1798-8) 30 25-125 [facility] HospitalProthrombin Nhga6604-07-50 14:38:00* Test Item Value Reference Range Interpretation Comments Prothrombin Time (test code = 5902-2) 14.2 11.9-14.5 [facility] HospitalProthromb Time International Ratio 2018-10-31 14:38:00* Test Item Value Reference Range Interpretation Comments Prothromb Time International Ratio (test code = 6301-6) 1.05 Oral Anticoagulant Therapy INR Values:1. Low Intensity Therapy 1.5 - 2.02 . Moderate Intensity Therapy 2.0 - 3.03. High Intensity Therapy(1) 2.5 - 3. 54. High Intensity Therapy(2) 3.0 - 4.05. Panic Value INR > 5.0 [facility] HospitalActivated Partial Thromboplast Time 2018-10-31 14:38:00* Test Item Value Reference Range Interpretation Comments Activated Partial Thromboplast Time (test code = 45698-4) 29.6 23.8-35.5 [facility] HospitalBlood Esbvstv3981-89-82 12:58:00* Test Item Value Reference Range Interpretation Comments Blood Culture (test code = 57327775) NO GROWTH AFTER 5 DAYS, FINAL REPORT [facility] Vujbbyw1426-65-37 16:23:00* Test Item Value Reference Range Interpretation Comments Bedside Glucose (test code = 45211-2) 158 70-120 H Meter ID: [id number] [facility] Glucose 2017-11-11 16:23:00* Test Item Value Reference Range Interpretation Comments Bedside Glucose (test code = 89836-7) 158 70-120 H Meter ID: [id number] [facility] [place] Culture 2017-11-11 12:58:00* Test Item Value Reference Range Interpretation Comments Blood Culture (test code = 42251427) NO GROWTH AFTER 48 HOURS [facility] HospitalB-Type Natriuretic Ergptng6938-75-99 08:37:00* Test Item Value Reference Range Interpretation Comments B-Type Natriuretic Peptide (test code = 05778-2) 346.6 0-100 H [facility] HospitalB-Type Natriuretic Dsdkstp8196-14-14 08:37:00* Test Item Value Reference Range Interpretation Comments B-Type Natriuretic Peptide (test code = 10051-5) 346.6 0-100 [facility]odium Gqzbs3896-22-55 07:35:00* Test Item Value Reference Range Interpretation Comments Sodium Level (test code = 2951-2) 139 136-145 [facility] HospitalPotassium Tujtu4164-41-41 07:35:00* Test Item Value Reference Range Interpretation Comments Potassium Level (test code = 2823-3) 5.0 3.5-5.1 [facility] HospitalChloride Wwdud3066-93-20 07:35:00* Test Item Value Reference Range Interpretation Comments Chloride Level (test code = 2075-0) 107 98-107 [facility] HospitalCarbon Dioxide Gofcf7119-50-63 07:35:00* Test Item Value Reference Range Interpretation Comments Carbon Dioxide Level (test code = 2028-9) 22 22-29 [facility] HospitalAnion Jou6837-59-75 07:35:00* Test Item Value Reference Range Interpretation Comments Anion Gap (test code = 15612-7) 15.0 8-16 [facility] HospitalBlood Urea Brqbwgmu3294-19-68 07:35:00* Test Item Value Reference Range Interpretation Comments Blood Urea Nitrogen (test code = 3094-0) 48 7-26 H [facility] HospitalCreatinine2018-05-24 07:35:00* Test Item Value Reference Range Interpretation Comments Creatinine (test code = 2160-0) 3.83 0.57-1.11 H [facility] HospitalBUN/Creatinine Drhdl1376-63-57 07:35:00* Test Item Value Reference Range Interpretation Comments BUN/Creatinine Ratio (test code = 3097-3) 13 6-25 [facility] HospitalEstimat Glomerular Filtration Rate 2017-11-11 07:35:00* Test Item Value Reference Range Interpretation Comments Estimat Glomerular Filtration Rate (test code = 66943-6) 12 >60 L Ranges were taken from the National Kidney Disease Education Program and the [facility] Kidney Foundation literature.Reference ranges:60 or greater: Rpisxb16-60 ( for 3 consecutive months): Chronic kidney disease 15 or less: Kidney failureTexas Health Arlington Memorial HospitalGlucose Zppkr3773-72-67 07:35:00* Test Item Value Reference Range Interpretation Comments Glucose Level (test code = TLR9534) 226 74-118 H [facility] HospitalCalcium Luysx9465-41-87 07:35:00* Test Item Value Reference Range Interpretation Comments Calcium Level (test code = 26884-6) 8.1 8.4-10.2 L [facility] HospitalMagnesium Vgabi2567-55-25 07:35:00* Test Item Value Reference Range Interpretation Comments Magnesium Level (test code = 24703-7) 1.6 1.3-2.1 [facility] Southodium Andpl7097-84-57 07:35:00* Test Item Value Reference Range Interpretation Comments Sodium Level (test code = 2951-2) 139 136-145 [facility] HospitalPotassium Xzwyj9159-97-06 07:35:00* Test Item Value Reference Range Interpretation Comments Potassium Level (test code = 2823-3) 5.0 3.5-5.1 [facility] HospitalChloride Sgkkz3723-48-67 07:35:00* Test Item Value Reference Range Interpretation Comments Chloride Level (test code = 2075-0) 107 98-107 [facility] HospitalCarbon Dioxide Sosqt7720-50-72 07:35:00* Test Item Value Reference Range Interpretation Comments Carbon Dioxide Level (test code = 2028-9) 22 22-29 [facility] HospitalAnion Bcd9725-11-66 07:35:00* Test Item Value Reference Range Interpretation Comments Anion Gap (test code = 91082-9) 15.0 8-16 [facility] HospitalBlood Urea Ouzqxvmj4559-99-90 07:35:00* Test Item Value Reference Range Interpretation Comments Blood Urea Nitrogen (test code = 3094-0) 48 7-26 H [facility] HospitalCreatinine2018-05-24 07:35:00* Test Item Value Reference Range Interpretation Comments Creatinine (test code = 2160-0) 3.83 0.57-1.11 H [facility] HospitalBUN/Creatinine Tkkgt5309-41-38 07:35:00* Test Item Value Reference Range Interpretation Comments BUN/Creatinine Ratio (test code = 3097-3) 13 6-25 [facility] HospitalEstimat Glomerular Filtration Rate 2017-11-11 07:35:00* Test Item Value Reference Range Interpretation Comments Estimat Glomerular Filtration Rate (test code = 43643-0) 12 >60 L Ranges were taken from the National Kidney Disease Education Program and the [facility] Foundation literature.Reference ranges:60 or greater: Zucjyk51-70 ( for 3 consecutive months): Chronic kidney disease 15 or less: Kidney failureTexas Health Arlington Memorial HospitalGlucose Jkvic6293-47-18 07:35:00* Test Item Value Reference Range Interpretation Comments Glucose Level (test code = EVY6076) 226 74-118 H [facility] HospitalCalcium Pauhz7921-20-95 07:35:00* Test Item Value Reference Range Interpretation Comments Calcium Level (test code = 66710-1) 8.1 8.4-10.2 L [facility] HospitalMagnesium Lubzq3065-81-66 07:35:00* Test Item Value Reference Range Interpretation Comments Magnesium Level (test code = 96037-0) 1.6 1.3-2.1 [facility] HospitalWhite Blood Gufqh4902-69-44 07:12:00* Test Item Value Reference Range Interpretation Comments White Blood Count (test code = 6690-2) 8.18 4.8-10.8 [facility] HospitalRed Blood Esxav5716-38-42 07:12:00* Test Item Value Reference Range Interpretation Comments Red Blood Count (test code = 789-8) 2.77 3.6-5.1 L [facility] HospitalHemoglobin2018-05-24 07:12:00* Test Item Value Reference Range Interpretation Comments Hemoglobin (test code = 08880-7) 8.1 12.0-16.0 L [facility] HospitalHematocrit2018-05-24 07:12:00* Test Item Value Reference Range Interpretation Comments Hematocrit (test code = 4544-3) 24.2 34.2-44.1 L [facility] HospitalMean Corpuscular Qubifk4220-02-42 07:12:00* Test Item Value Reference Range Interpretation Comments Mean Corpuscular Volume (test code = 787-2) 87.4 81-99 [facility] HospitalMean Corpuscular Fcpgjmimja5374-77-27 07:12:00* Test Item Value Reference Range Interpretation Comments Mean Corpuscular Hemoglobin (test code = 785-6) 29.2 28-32 [facility] HospitalMean Corpuscular Hemoglobin Concent 2017-11-11 07:12:00* Test Item Value Reference Range Interpretation Comments Mean Corpuscular Hemoglobin Concent (test code = 786-4) 33.5 31-35 [facility] HospitalRed Cell Distribution Rurvf6751-09-52 07:12:00* Test Item Value Reference Range Interpretation Comments Red Cell Distribution Width (test code = 90899-6) 14.2 11.7 -14.4 [facility] HospitalPlatelet Mdfey2544-29-20 07:12:00* Test Item Value Reference Range Interpretation Comments Platelet Count (test code = 777-3) 190 140-360 [facility] HospitalNeutrophils (%) (Auto)2017-11-11 07:12:00 * Test Item Value Reference Range Interpretation Comments Neutrophils (%) (Auto) (test code = 79250-7) 60.2 38.7-80.0 [facility] HospitalLymphocytes (%) (Auto)2017-11-11 07:12:00 * Test Item Value Reference Range Interpretation Comments Lymphocytes (%) (Auto) (test code = 736-9) 29.7 18.0-39.1 [facility] HospitalMonocytes (%) (Auto)2017-11-11 07:12:00* Test Item Value Reference Range Interpretation Comments Monocytes (%) (Auto) (test code = 5905-5) 6.5 4.4-11.3 [facility] HospitalEosinophils (%) (Auto)2017-11-11 07:12:00 * Test Item Value Reference Range Interpretation Comments Eosinophils (%) (Auto) (test code = 713-8) 3.1 0.0-6.0 [facility] HospitalBasophils (%) (Auto)2017-11-11 07:12:00* Test Item Value Reference Range Interpretation Comments Basophils (%) (Auto) (test code = 706-2) 0.1 0.0-1.0 [facility] HospitalIM GRANULOCYTES %2017-11-11 07:12:00* Test Item Value Reference Range Interpretation Comments IM GRANULOCYTES % (test code = IM GRANULOCYTES %) 0.4 0.0- 1.0 [facility] HospitalNeutrophils # (Auto)2017-11-11 07:12:00* Test Item Value Reference Range Interpretation Comments Neutrophils # (Auto) (test code = 751-8) 4.9 2.1-6.9 [facility] HospitalLymphocytes # (Auto)2017-11-11 07:12:00* Test Item Value Reference Range Interpretation Comments Lymphocytes # (Auto) (test code = 66259-8) 2.4 1.0-3.2 [facility] HospitalMonocytes # (Auto)2017-11-11 07:12:00* Test Item Value Reference Range Interpretation Comments Monocytes # (Auto) (test code = 742-7) 0.5 0.2-0.8 [facility] HospitalEosinophils # (Auto)2017-11-11 07:12:00* Test Item Value Reference Range Interpretation Comments Eosinophils # (Auto) (test code = 711-2) 0.3 0.0-0.4 [facility] HospitalBasophils # (Auto)2017-11-11 07:12:00* Test Item Value Reference Range Interpretation Comments Basophils # (Auto) (test code = 704-7) 0.0 0.0-0.1 [facility] HospitalAbsolute Immature Granulocyte (auto 2017-11-11 07:12:00* Test Item Value Reference Range Interpretation Comments Absolute Immature Granulocyte (auto (tanya t code = Absolute Immature Granulocyte (auto) 0.03 0-0.1 [facility] HospitalWhite Blood Xzksv5193-06-54 07:12:00* Test Item Value Reference Range Interpretation Comments White Blood Count (test code = 6690-2) 8.18 4.8-10.8 [facility] HospitalRed Blood Aauij2370-06-68 07:12:00* Test Item Value Reference Range Interpretation Comments Red Blood Count (test code = 789-8) 2.77 3.6-5.1 L [facility] HospitalHemoglobin2018-05-24 07:12:00* Test Item Value Reference Range Interpretation Comments Hemoglobin (test code = 74623-5) 8.1 12.0-16.0 L [facility] HospitalHematocrit2018-05-24 07:12:00* Test Item Value Reference Range Interpretation Comments Hematocrit (test code = 4544-3) 24.2 34.2-44.1 L [facility] HospitalMean Corpuscular Fguwal0051-00-90 07:12:00* Test Item Value Reference Range Interpretation Comments Mean Corpuscular Volume (test code = 787-2) 87.4 81-99 [facility] HospitalMean Corpuscular Bnqyrqlgcz2132-16-47 07:12:00* Test Item Value Reference Range Interpretation Comments Mean Corpuscular Hemoglobin (test code = 785-6) 29.2 28-32 [facility] HospitalMean Corpuscular Hemoglobin Concent 2017-11-11 07:12:00* Test Item Value Reference Range Interpretation Comments Mean Corpuscular Hemoglobin Concent (test code = 786-4) 33.5 31-35 [facility] HospitalRed Cell Distribution Swoyb0746-74-53 07:12:00* Test Item Value Reference Range Interpretation Comments Red Cell Distribution Width (test code = 21583-6) 14.2 11.7 -14.4 [facility] HospitalPlatelet Ojvql0808-86-52 07:12:00* Test Item Value Reference Range Interpretation Comments Platelet Count (test code = 777-3) 190 140-360 [facility] HospitalNeutrophils (%) (Auto)2017-11-11 07:12:00 * Test Item Value Reference Range Interpretation Comments Neutrophils (%) (Auto) (test code = 92476-6) 60.2 38.7-80.0 [facility] HospitalLymphocytes (%) (Auto)2017-11-11 07:12:00 * Test Item Value Reference Range Interpretation Comments Lymphocytes (%) (Auto) (test code = 736-9) 29.7 18.0-39.1 [facility] HospitalMonocytes (%) (Auto)2017-11-11 07:12:00* Test Item Value Reference Range Interpretation Comments Monocytes (%) (Auto) (test code = 5905-5) 6.5 4.4-11.3 [facility] HospitalEosinophils (%) (Auto)2017-11-11 07:12:00 * Test Item Value Reference Range Interpretation Comments Eosinophils (%) (Auto) (test code = 713-8) 3.1 0.0-6.0 [facility] HospitalBasophils (%) (Auto)2017-11-11 07:12:00* Test Item Value Reference Range Interpretation Comments Basophils (%) (Auto) (test code = 706-2) 0.1 0.0-1.0 [facility] HospitalIM GRANULOCYTES %2017-11-11 07:12:00* Test Item Value Reference Range Interpretation Comments IM GRANULOCYTES % (test code = IM GRANULOCYTES %) 0.4 0.0- 1.0 [facility] HospitalNeutrophils # (Auto)2017-11-11 07:12:00* Test Item Value Reference Range Interpretation Comments Neutrophils # (Auto) (test code = 751-8) 4.9 2.1-6.9 [facility] HospitalLymphocytes # (Auto)2017-11-11 07:12:00* Test Item Value Reference Range Interpretation Comments Lymphocytes # (Auto) (test code = 80440-1) 2.4 1.0-3.2 [facility] HospitalMonocytes # (Auto)2017-11-11 07:12:00* Test Item Value Reference Range Interpretation Comments Monocytes # (Auto) (test code = 742-7) 0.5 0.2-0.8 [facility] HospitalEosinophils # (Auto)2017-11-11 07:12:00* Test Item Value Reference Range Interpretation Comments Eosinophils # (Auto) (test code = 711-2) 0.3 0.0-0.4 [facility] HospitalBasophils # (Auto)2017-11-11 07:12:00* Test Item Value Reference Range Interpretation Comments Basophils # (Auto) (test code = 704-7) 0.0 0.0-0.1 [facility] HospitalAbsolute Immature Granulocyte (auto 2017-11-11 07:12:00* Test Item Value Reference Range Interpretation Comments Absolute Immature Granulocyte (auto (tanya t code = Absolute Immature Granulocyte (auto) 0.03 0-0.1 [facility] HospitalFerritin2018-05-23 08:26:00* Test Item Value Reference Range Interpretation Comments Ferritin (test code = 2276-4) 191.91 4.63-204.00 [facility] HospitalFerritin2018-05-23 08:26:00* Test Item Value Reference Range Interpretation Comments Ferritin (test code = 2276-4) 191.91 4.63-204.00 [facility] HospitalVitamin B12 Jxpke0182-88-29 08:04:00* Test Item Value Reference Range Interpretation Comments Vitamin B12 Level (test code = 33523-7) 212 213-816 L [facility] HospitalFolate2018-05-23 08:04:00* Test Item Value Reference Range Interpretation Comments Folate (test code = 2284-8) 11.6 7.0-15.4 [facility] HospitalVitamin B12 Ijhmd8568-27-83 08:04:00* Test Item Value Reference Range Interpretation Comments Vitamin B12 Level (test code = 11399-1) 212 213-816 L [facility] HospitalFolate2018-05-23 08:04:00* Test Item Value Reference Range Interpretation Comments Folate (test code = 2284-8) 11.6 7.0-15.4 [facility] [facility]Iron Wekpg1856-97-73 08:03:00* Test Item Value Reference Range Interpretation Comments Iron Level (test code = 2498-4) 23 50-170 L [facility] Binding Cbbgvfjx4617-63-24 08:03:00* Test Item Value Reference Range Interpretation Comments Total Iron Binding Capacity (test code = 2500-7) 203 261-4 78 L [facility]Percent Iron Hghybxmmif0544-59-11 08:03:00* Test Item Value Reference Range Interpretation Comments Percent Iron Saturation (test code = 2502-3) 11 15-50 L [facility] HospitalTransferrin2018-05-23 08:03:00* Test Item Value Reference Range Interpretation Comments Transferrin (test code = 3034-6) 145 180-382 L [facility] Wgkcc8218-75-01 08:03:00* Test Item Value Reference Range Interpretation Comments Iron Level (test code = 2498-4) 23 50-170 L [facility] Iron Binding Ztnhxbtf1394-98-45 08:03:00* Test Item Value Reference Range Interpretation Comments Total Iron Binding Capacity (test code = 2500-7) 203 261-4 78 L [facility]Percent Iron Nvheuinjrv1528-11-69 08:03:00* Test Item Value Reference Range Interpretation Comments Percent Iron Saturation (test code = 2502-3) 11 15-50 L [facility] HospitalTransferrin2018-05-23 08:03:00* Test Item Value Reference Range Interpretation Comments Transferrin (test code = 3034-6) 145 180-382 L [facility]Total Wtpyvjyvb8422-73-14 07:44:00* Test Item Value Reference Range Interpretation Comments Total Bilirubin (test code = 1975-2) 0.5 0.2-1.2 [facility] HospitalAspartate Amino Transf (AST/SGOT) 2017-11-10 07:44:00* Test Item Value Reference Range Interpretation Comments Aspartate Amino Transf (AST/SGOT) (test code = Aspartate Amino Transf (AST/SGOT)) 4 5-34 L [facility] HospitalAlanine Aminotransferase (ALT/SGPT) 2017-11-10 07:44:00* Test Item Value Reference Range Interpretation Comments Alanine Aminotransferase (ALT/SGPT) (test code = 1742-6) 8 0-55 [facility] HospitalTotal Awsxojr1674-08-28 07:44:00* Test Item Value Reference Range Interpretation Comments Total Protein (test code = 2885-2) 5.0 6.5-8.1 L [facility] HospitalAlbumin2018-05-23 07:44:00* Test Item Value Reference Range Interpretation Comments Albumin (test code = 1751-7) 2.3 3.5-5.0 L [facility] HospitalGlobulin2018-05-23 07:44:00* Test Item Value Reference Range Interpretation Comments Globulin (test code = 99895-5) 2.7 2.3-3.5 [facility] HospitalAlbumin/Globulin Ivtaf1309-06-09 07:44:00 * Test Item Value Reference Range Interpretation Comments Albumin/Globulin Ratio (test code = 1759-0) 0.9 0.8-2.0 [facility] HospitalAlkaline Tiotyhueqiy3722-88-41 07:44:00* Test Item Value Reference Range Interpretation Comments Alkaline Phosphatase (test code = 6768-6) 86 40-150 [facility] HospitalTriglycerides Vvkxi7601-20-92 07:44:00* Test Item Value Reference Range Interpretation Comments Triglycerides Level (test code = 2571-8) 269 0-149 H [facility] HospitalCholesterol Mceir1264-02-40 07:44:00* Test Item Value Reference Range Interpretation Comments Cholesterol Level (test code = 2093-3) 213 0-199 H Less than 200 mg/dL Low Otvt509 - 239 mg/dL Borderline Zzhb756 m g/dl and greater High Risk [facility] HospitalLDL Siqikaveage4778-68-91 07:44:00* Test Item Value Reference Range Interpretation Comments LDL Cholesterol (test code = 2089-1) 124 60-130 [facility] HospitalHDL Sjocqrthdep4524-50-80 07:44:00* Test Item Value Reference Range Interpretation Comments HDL Cholesterol (test code = 2085-9) 35 40-60 L [facility] HospitalCholesterol/HDL Sjpqf7019-29-70 07:44:00 * Test Item Value Reference Range Interpretation Comments Cholesterol/HDL Ratio (test code = 9830-1) 6.1 3.0-3.6 H [facility] HospitalTotal Jxfdnsfwr0712-29-95 07:44:00* Test Item Value Reference Range Interpretation Comments Total Bilirubin (test code = 1975-2) 0.5 0.2-1.2 [facility] HospitalAspartate Amino Transf (AST/SGOT) 2017-11-10 07:44:00* Test Item Value Reference Range Interpretation Comments Aspartate Amino Transf (AST/SGOT) (test code = Aspartate Amino Transf (AST/SGOT)) 4 5-34 L [facility] HospitalAlanine Aminotransferase (ALT/SGPT) 2017-11-10 07:44:00* Test Item Value Reference Range Interpretation Comments Alanine Aminotransferase (ALT/SGPT) (test code = 1742-6) 8 0-55 [facility] HospitalTotal Xahqrrf9991-89-69 07:44:00* Test Item Value Reference Range Interpretation Comments Total Protein (test code = 2885-2) 5.0 6.5-8.1 L [facility] HospitalAlbumin2018-05-23 07:44:00* Test Item Value Reference Range Interpretation Comments Albumin (test code = 1751-7) 2.3 3.5-5.0 L [facility] HospitalGlobulin2018-05-23 07:44:00* Test Item Value Reference Range Interpretation Comments Globulin (test code = 04785-9) 2.7 2.3-3.5 [facility] HospitalAlbumin/Globulin Ucucf3484-80-92 07:44:00 * Test Item Value Reference Range Interpretation Comments Albumin/Globulin Ratio (test code = 1759-0) 0.9 0.8-2.0 [facility] HospitalAlkaline Vwdxrmqsxyw7889-32-21 07:44:00* Test Item Value Reference Range Interpretation Comments Alkaline Phosphatase (test code = 6768-6) 86 40-150 [facility] HospitalTriglycerides Rieet4687-16-20 07:44:00* Test Item Value Reference Range Interpretation Comments Triglycerides Level (test code = 2571-8) 269 0-149 H [facility] HospitalCholesterol Jlyhf2484-20-29 07:44:00* Test Item Value Reference Range Interpretation Comments Cholesterol Level (test code = 2093-3) 213 0-199 H Less than 200 mg/dL Low Qkqy118 - 239 mg/dL Borderline Prri268 m g/dl and greater High Risk [facility] HospitalLDL Ssmdfsezcwv7313-38-24 07:44:00* Test Item Value Reference Range Interpretation Comments LDL Cholesterol (test code = 2089-1) 124 60-130 [facility] HospitalHDL Bihyyllloow8943-95-97 07:44:00* Test Item Value Reference Range Interpretation Comments HDL Cholesterol (test code = 2085-9) 35 40-60 L [facility] HospitalCholesterol/HDL Galem9353-05-58 07:44:00 * Test Item Value Reference Range Interpretation Comments Cholesterol/HDL Ratio (test code = 9830-1) 6.1 3.0-3.6 H [facility] HospitalHemoglobin A1c Lxtctxt5391-50-20 07:32:00 * Test Item Value Reference Range Interpretation Comments Hemoglobin A1c Percent (test code = Hemoglobin A1c Percent) 8.9 4.0-7.0 H [facility] HospitalHemoglobin A1c Jqjfioe5196-90-03 07:32:00 * Test Item Value Reference Range Interpretation Comments Hemoglobin A1c Percent (test code = Hemoglobin A1c Percent) 8.9 4.0-7.0 H [facility] HospitalCreatine Kinase DA6565-33-85 22:08:00* Test Item Value Reference Range Interpretation Comments Creatine Kinase MB (test code = 23430-8) 1.60 0-5.0 [facility] HospitalTroponin I6033-47-80 22:08:00* Test Item Value Reference Range Interpretation Comments Troponin I (test code = IYL3031) 0.019 0-0.300 [facility] HospitalCreatine Kinase ZD9303-54-64 22:08:00* Test Item Value Reference Range Interpretation Comments Creatine Kinase MB (test code = 22725-5) 1.60 0-5.0 [facility] HospitalTroponin N8871-49-36 22:08:00* Test Item Value Reference Range Interpretation Comments Troponin I (test code = DQJ9733) 0.019 0-0.300 [facility] HospitalCreatine Liwtdd8792-00-61 22:01:00* Test Item Value Reference Range Interpretation Comments Creatine Kinase (test code = 2157-6) 62 29-168 [facility] HospitalCreatine Dqzlsj6448-96-51 22:01:00* Test Item Value Reference Range Interpretation Comments Creatine Kinase (test code = 2157-6) 62 29-168 [facility] HospitalUrine ZEZ8155-03-32 06:13:00* Test Item Value Reference Range Interpretation Comments Urine WBC (test code = 5821-4) NONE 0-5 [facility] HospitalUrine UYF2438-29-89 06:13:00* Test Item Value Reference Range Interpretation Comments Urine RBC (test code = 94085-5) NONE 0-5 [facility] HospitalUrine Bzugpwur2301-38-62 06:13:00* Test Item Value Reference Range Interpretation Comments Urine Bacteria (test code = 28455-8) NONE NONE [facility] HospitalUrine Epithelial Rhlqs0455-08-95 06:13:00 * Test Item Value Reference Range Interpretation Comments Urine Epithelial Cells (test code = 93540-7) RARE NONE [facility] HospitalUrine BZP7168-44-37 06:13:00* Test Item Value Reference Range Interpretation Comments Urine WBC (test code = 5821-4) NONE 0-5 [facility] HospitalUrine XTJ1929-39-94 06:13:00* Test Item Value Reference Range Interpretation Comments Urine RBC (test code = 15990-8) NONE 0-5 [facility] HospitalUrine Xoafrhrz3249-04-88 06:13:00* Test Item Value Reference Range Interpretation Comments Urine Bacteria (test code = 11190-2) NONE NONE [facility] HospitalUrine Epithelial Qacqp3015-54-69 06:13:00 * Test Item Value Reference Range Interpretation Comments Urine Epithelial Cells (test code = 15974-4) RARE NONE [facility] HospitalProthrombin Qblr2226-01-92 06:09:00* Test Item Value Reference Range Interpretation Comments Prothrombin Time (test code = 5902-2) 14.5 11.9-14.5 [facility] HospitalProthromb Time International Ratio 2017-11-09 06:09:00* Test Item Value Reference Range Interpretation Comments Prothromb Time International Ratio (test code = 6301-6) 1.22 Oral Anticoagulant Therapy INR Values:1. Low Intensity Therapy 1.5 - 2.02 . Moderate Intensity Therapy 2.0 - 3.03. High Intensity Therapy(1) 2.5 - 3. 54. High Intensity Therapy(2) 3.0 - 4.05. Panic Value INR > 5.0 [facility] HospitalActivated Partial Thromboplast Time 2017-11-09 06:09:00* Test Item Value Reference Range Interpretation Comments Activated Partial Thromboplast Time (test code = 87738-1) 30.1 23.8-35.5 [facility] HospitalProthrombin Vhsx7401-10-84 06:09:00* Test Item Value Reference Range Interpretation Comments Prothrombin Time (test code = 5902-2) 14.5 11.9-14.5 [facility] HospitalProthromb Time International Ratio 2017-11-09 06:09:00* Test Item Value Reference Range Interpretation Comments Prothromb Time International Ratio (test code = 6301-6) 1.22 Oral Anticoagulant Therapy INR Values:1. Low Intensity Therapy 1.5 - 2.02 . Moderate Intensity Therapy 2.0 - 3.03. High Intensity Therapy(1) 2.5 - 3. 54. High Intensity Therapy(2) 3.0 - 4.05. Panic Value INR > 5.0 [facility] HospitalActivated Partial Thromboplast Time 2017-11-09 06:09:00* Test Item Value Reference Range Interpretation Comments Activated Partial Thromboplast Time (test code = 96997-7) 30.1 23.8-35.5 [facility] HospitalUrine Ovpku4262-12-15 05:56:00* Test Item Value Reference Range Interpretation Comments Urine Color (test code = 5778-6) YELLOW YELLOW [facility] HospitalUrine Zxagjap6233-69-93 05:56:00* Test Item Value Reference Range Interpretation Comments Urine Clarity (test code = 35235-3) CLEAR CLEAR [facility] HospitalUrine Specific Cbuoqgk9859-82-00 05:56:00 * Test Item Value Reference Range Interpretation Comments Urine Specific [place] (test code = 5811-5) 1.020 1.010-1.02 5 [facility] HospitalUrine wM2329-20-94 05:56:00* Test Item Value Reference Range Interpretation Comments Urine pH (test code = 92093-8) 6 5-7 [facility] HospitalUrine Leukocyte Ztxumtan6514-63-38 05:56:00* Test Item Value Reference Range Interpretation Comments Urine Leukocyte Esterase (test code = 5799-2) NEGATIVE NEGATIVE [facility] HospitalUrine Dpqfebj3821-10-65 05:56:00* Test Item Value Reference Range Interpretation Comments Urine Nitrite (test code = 86552-4) NEGATIVE NEGATIVE [facility] HospitalUrine Ukqhkwz9004-32-73 05:56:00* Test Item Value Reference Range Interpretation Comments Urine Protein (test code = 5804-0) 2+ NEGATIVE H [facility] HospitalUrine Glucose (UA)2017-11-09 05:56:00* Test Item Value Reference Range Interpretation Comments Urine Glucose (UA) (test code = 2349-9) 2+ NEGATIVE H [facility] HospitalUrine Hijnrue9546-53-84 05:56:00* Test Item Value Reference Range Interpretation Comments Urine Ketones (test code = 55027-4) NEGATIVE NEGATIVE [facility] HospitalUrine Mjehsbtkrkdx9098-18-72 05:56:00* Test Item Value Reference Range Interpretation Comments Urine Urobilinogen (test code = 29168-4) 0.2 0.2-1 [facility] HospitalUrine Ncpphnyps8880-26-03 05:56:00* Test Item Value Reference Range Interpretation Comments Urine Bilirubin (test code = 1978-6) NEGATIVE NEGATIVE [facility] Ljvyq1543-43-68 05:56:00* Test Item Value Reference Range Interpretation Comments Urine Blood (test code = 15493-8) NEGATIVE NEGATIVE [facility] HospitalU[facility] Pnsae2297-19-30 05:56:00* Test Item Value Reference Range Interpretation Comments Urine Color (test code = 5778-6) YELLOW YELLOW [facility] HospitalUrine Belkujl0781-73-09 05:56:00* Test Item Value Reference Range Interpretation Comments Urine Clarity (test code = 35198-4) CLEAR CLEAR [facility] HospitalUrine Specific Aglpfwn2280-13-45 05:56:00 * Test Item Value Reference Range Interpretation Comments Urine Specific [place] (test code = 5811-5) 1.020 1.010-1.02 5 [facility] HospitalUrine tB8972-27-30 05:56:00* Test Item Value Reference Range Interpretation Comments Urine pH (test code = 45810-6) 6 5-7 [facility] HospitalU[facility] Leukocyte Dubnhhgg7839-31-05 05:56:00* Test Item Value Reference Range Interpretation Comments Urine Leukocyte Esterase (test code = 5799-2) NEGATIVE NEGATIVE [facility] HospitalUrine Nioppxp6645-62-32 05:56:00* Test Item Value Reference Range Interpretation Comments Urine Nitrite (test code = 47958-0) NEGATIVE NEGATIVE [facility] HospitalUrine Fxbjjct4976-93-80 05:56:00* Test Item Value Reference Range Interpretation Comments Urine Protein (test code = 5804-0) 2+ NEGATIVE H [facility] HospitalUrine Glucose (UA)2017-11-09 05:56:00* Test Item Value Reference Range Interpretation Comments Urine Glucose (UA) (test code = 2349-9) 2+ NEGATIVE H [facility] HospitalUrine Aopaaaz1074-16-51 05:56:00* Test Item Value Reference Range Interpretation Comments Urine Ketones (test code = 25788-6) NEGATIVE NEGATIVE [facility] HospitalUrine Efcibicarxax7416-78-70 05:56:00* Test Item Value Reference Range Interpretation Comments Urine Urobilinogen (test code = 21100-0) 0.2 0.2-1 [facility] HospitalUrine Mqmeskvwv9108-76-53 05:56:00* Test Item Value Reference Range Interpretation Comments Urine Bilirubin (test code = 1978-6) NEGATIVE NEGATIVE [facility] HospitalUrine Khtzj0245-98-28 05:56:00* Test Item Value Reference Range Interpretation Comments Urine Blood (test code = 17976-9) NEGATIVE NEGATIVE [facility] HospitalBacteria identification in wound by rwxrwji6348-09-25 10:53:00* Test Item Value Reference Range Interpretation Comments Wound Culture (test code = 6462-6) Organism: STREP AGALACTIAE GROUP B [facility] HospitalBacteria identification in wound by lsyacmz2653-43-46 10:53:00* Test Item Value Reference Range Interpretation Comments Wound Culture (test code = 6462-6) Organism: STREP AGALACTIAE GROUP B [facility] HospitalBacteria identification in wound by orgtqla7265-11-68 10:53:00* Test Item Value Reference Range Interpretation Comments Wound Culture (test code = 6462-6) Organism: STREP AGALACTIAE GROUP B [facility] Ajpprbi4059-86-03 06:35:00* Test Item Value Reference Range Interpretation Comments Bedside Glucose (test code = 87522-4) 205 70-120 H Meter ID: [id number] Scott [facility] Glucose 2017-09-16 06:35:00* Test Item Value Reference Range Interpretation Comments Bedside Glucose (test code = 05574-5) 205 70-120 H Meter ID: [id number] [facility] Glucose 2017-08-12 08:40:00* Test Item Value Reference Range Interpretation Comments Bedside Glucose (test code = 83183-1) 169 70-120 H Meter ID: [id number] [facility] Glucose 2017-08-12 08:40:00* Test Item Value Reference Range Interpretation Comments Bedside Glucose (test code = 11918-8) 169 70-120 H Meter ID: [id number] [facility] Southodium Level 2017-08-12 07:35:00* Test Item Value Reference Range Interpretation Comments Sodium Level (test code = 2951-2) 137 136-145 [facility] HospitalPotassium Dreyd3760-65-44 07:35:00* Test Item Value Reference Range Interpretation Comments Potassium Level (test code = 2823-3) 5.1 3.5-5.1 [facility] HospitalChloride Gqctk2289-90-44 07:35:00* Test Item Value Reference Range Interpretation Comments Chloride Level (test code = 2075-0) 105 98-107 [facility] HospitalCarbon Dioxide Qhapb0165-35-06 07:35:00* Test Item Value Reference Range Interpretation Comments Carbon Dioxide Level (test code = 2028-9) 24 22-29 [facility] HospitalAnion Yjy4997-24-41 07:35:00* Test Item Value Reference Range Interpretation Comments Anion Gap (test code = 08973-6) 13.1 8-16 [facility] HospitalBlood Urea Zkfssuet7224-57-66 07:35:00* Test Item Value Reference Range Interpretation Comments Blood Urea Nitrogen (test code = 3094-0) 43 7-26 H [facility] HospitalCreatinine2018-02-22 07:35:00* Test Item Value Reference Range Interpretation Comments Creatinine (test code = 2160-0) 3.12 0.57-1.11 H [facility] HospitalBUN/Creatinine Zowxx6249-35-21 07:35:00* Test Item Value Reference Range Interpretation Comments BUN/Creatinine Ratio (test code = 3097-3) 14 6-25 [facility] HospitalEstimat Glomerular Filtration Rate 2017-08-12 07:35:00* Test Item Value Reference Range Interpretation Comments Estimat Glomerular Filtration Rate (test code = 66476-3) 15 >60 L Ranges were taken from the National Kidney Disease Education Program and the [facility] literature.Reference ranges:60 or greater: Mmptba23-49 ( for 3 consecutive months): Chronic kidney disease 15 or less: Kidney failureTexas Health [facility] Memorial HospitalGlucose Yznzl7479-07-62 07:35:00* Test Item Value Reference Range Interpretation Comments Glucose Level (test code = QUK4071) 190 74-118 H [facility] HospitalCalcium Hfcds2185-76-28 07:35:00* Test Item Value Reference Range Interpretation Comments Calcium Level (test code = 14435-0) 8.5 8.4-10.2 [facility] HospitalPhosphorus Ekcuj2841-76-01 07:35:00* Test Item Value Reference Range Interpretation Comments Phosphorus Level (test code = PMR9670) 4.8 2.3-4.7 H [facility] HospitalMagnesium Rftlf0550-62-69 07:35:00* Test Item Value Reference Range Interpretation Comments Magnesium Level (test code = 81810-8) 1.9 1.3-2.1 [facility] Southodium Tzrkd8906-01-70 07:35:00* Test Item Value Reference Range Interpretation Comments Sodium Level (test code = 2951-2) 137 136-145 [facility] HospitalPotassium Etvam0341-53-97 07:35:00* Test Item Value Reference Range Interpretation Comments Potassium Level (test code = 2823-3) 5.1 3.5-5.1 [facility] HospitalChloride Vrzih9276-09-90 07:35:00* Test Item Value Reference Range Interpretation Comments Chloride Level (test code = 2075-0) 105 98-107 [facility] HospitalCarbon Dioxide Gnhzy0872-73-57 07:35:00* Test Item Value Reference Range Interpretation Comments Carbon Dioxide Level (test code = 2028-9) 24 22-29 [facility] HospitalAnion Zmc1197-23-18 07:35:00* Test Item Value Reference Range Interpretation Comments Anion Gap (test code = 18345-4) 13.1 8-16 [facility] HospitalBlood Urea Yqflcrrr1167-63-53 07:35:00* Test Item Value Reference Range Interpretation Comments Blood Urea Nitrogen (test code = 3094-0) 43 7-26 H [facility] HospitalCreatinine2018-02-22 07:35:00* Test Item Value Reference Range Interpretation Comments Creatinine (test code = 2160-0) 3.12 0.57-1.11 H [facility] HospitalBUN/Creatinine Jufxt0943-88-61 07:35:00* Test Item Value Reference Range Interpretation Comments BUN/Creatinine Ratio (test code = 3097-3) 14 6-25 [facility] HospitalEstimat Glomerular Filtration Rate 2017-08-12 07:35:00* Test Item Value Reference Range Interpretation Comments Estimat Glomerular Filtration Rate (test code = 27667-3) 15 >60 L Ranges were taken from the National Kidney Disease Education Program and the [facility] Kidney Foundation literature.Reference ranges:60 or greater: Dvpcgk18-80 ( for 3 consecutive months): Chronic kidney disease 15 or less: Kidney failureCHI [facility] NorthwestGlucose Sltpw6355-75-68 07:35:00* Test Item Value Reference Range Interpretation Comments Glucose Level (test code = JWX3145) 190 74-118 H [facility] HospitalCalcium Qauwu2630-56-88 07:35:00* Test Item Value Reference Range Interpretation Comments Calcium Level (test code = 62929-1) 8.5 8.4-10.2 [facility] HospitalPhosphorus Hcria6262-48-15 07:35:00* Test Item Value Reference Range Interpretation Comments Phosphorus Level (test code = PCZ8618) 4.8 2.3-4.7 H [facility] HospitalMagnesium Mdtvn1308-91-73 07:35:00* Test Item Value Reference Range Interpretation Comments Magnesium Level (test code = 08892-9) 1.9 1.3-2.1 [facility] Southodium Npefl8189-44-95 07:35:00* Test Item Value Reference Range Interpretation Comments Sodium Level (test code = 2951-2) 137 136-145 [facility] HospitalPotassium Xoien4719-87-65 07:35:00* Test Item Value Reference Range Interpretation Comments Potassium Level (test code = 2823-3) 5.1 3.5-5.1 [facility] HospitalChloride Kpqln8755-06-00 07:35:00* Test Item Value Reference Range Interpretation Comments Chloride Level (test code = 2075-0) 105 98-107 [facility] HospitalCarbon Dioxide Ktxev2048-42-13 07:35:00* Test Item Value Reference Range Interpretation Comments Carbon Dioxide Level (test code = 2028-9) 24 22-29 [facility] HospitalAnion Ruc3196-68-97 07:35:00* Test Item Value Reference Range Interpretation Comments Anion Gap (test code = 28874-1) 13.1 8-16 [facility] HospitalBlood Urea Lxjpaelh0845-23-97 07:35:00* Test Item Value Reference Range Interpretation Comments Blood Urea Nitrogen (test code = 3094-0) 43 7-26 H [facility] HospitalCreatinine2018-02-22 07:35:00* Test Item Value Reference Range Interpretation Comments Creatinine (test code = 2160-0) 3.12 0.57-1.11 H [facility] HospitalBUN/Creatinine Njyol7797-67-94 07:35:00* Test Item Value Reference Range Interpretation Comments BUN/Creatinine Ratio (test code = 3097-3) 14 6-25 [facility] HospitalEstimat Glomerular Filtration Rate 2017-08-12 07:35:00* Test Item Value Reference Range Interpretation Comments Estimat Glomerular Filtration Rate (test code = 67427-4) 15 >60 L Ranges were taken from the National Kidney Disease Education Program and the [facility] literature.Reference ranges:60 or greater: Hdetbd94-04 ( for 3 consecutive months): Chronic kidney disease 15 or less: Kidney failureTexas [facility] HospitalGlucose Wsrra3589-80-66 07:35:00* Test Item Value Reference Range Interpretation Comments Glucose Level (test code = XGC1196) 190 74-118 H [facility] HospitalCalcium Nksmd9251-77-65 07:35:00* Test Item Value Reference Range Interpretation Comments Calcium Level (test code = 54734-0) 8.5 8.4-10.2 [facility] HospitalPhosphorus Fmayi0818-98-85 07:35:00* Test Item Value Reference Range Interpretation Comments Phosphorus Level (test code = KOA7676) 4.8 2.3-4.7 H [facility] HospitalMagnesium Rpymf1407-09-34 07:35:00* Test Item Value Reference Range Interpretation Comments Magnesium Level (test code = 24853-5) 1.9 1.3-2.1 [facility] Buewn2696-27-59 07:35:00* Test Item Value Reference Range Interpretation Comments Sodium Level (test code = 2951-2) 137 136-145 [facility] HospitalPotassium Pjyaq0289-61-46 07:35:00* Test Item Value Reference Range Interpretation Comments Potassium Level (test code = 2823-3) 5.1 3.5-5.1 [facility] HospitalChloride Hxblt4245-58-48 07:35:00* Test Item Value Reference Range Interpretation Comments Chloride Level (test code = 2075-0) 105 98-107 [facility] HospitalCarbon Dioxide Wtfoh8833-12-49 07:35:00* Test Item Value Reference Range Interpretation Comments Carbon Dioxide Level (test code = 2028-9) 24 22-29 [facility] HospitalAnion Vrc2769-28-37 07:35:00* Test Item Value Reference Range Interpretation Comments Anion Gap (test code = 05951-6) 13.1 8-16 [facility] HospitalBlood Urea Qxvfucgr5481-67-93 07:35:00* Test Item Value Reference Range Interpretation Comments Blood Urea Nitrogen (test code = 3094-0) 43 7-26 H [facility] HospitalCreatinine2018-02-22 07:35:00* Test Item Value Reference Range Interpretation Comments Creatinine (test code = 2160-0) 3.12 0.57-1.11 H [facility] HospitalBUN/Creatinine Wtaij9561-78-77 07:35:00* Test Item Value Reference Range Interpretation Comments BUN/Creatinine Ratio (test code = 3097-3) 14 6-25 [facility] HospitalEstimat Glomerular Filtration Rate 2017-08-12 07:35:00* Test Item Value Reference Range Interpretation Comments Estimat Glomerular Filtration Rate (test code = 49094-1) 15 >60 L Ranges were taken from the National Kidney Disease Education Program and the [facility] Foundation literature.Reference ranges:60 or greater: Ppqqkc24-09 ( for 3 consecutive months): Chronic kidney disease 15 or less: [facility] failureCH[facility] NorthwestGlucose Xkmmr3061-45-21 07:35:00* Test Item Value Reference Range Interpretation Comments Glucose Level (test code = MYJ6170) 190 74-118 H [facility] HospitalCalcium Hhsjs5377-09-28 07:35:00* Test Item Value Reference Range Interpretation Comments Calcium Level (test code = 78944-2) 8.5 8.4-10.2 [facility] HospitalPhosphorus Mhnwi8004-18-57 07:35:00* Test Item Value Reference Range Interpretation Comments Phosphorus Level (test code = VDN4789) 4.8 2.3-4.7 H [facility] HospitalMagnesium Grrgx4224-00-19 07:35:00* Test Item Value Reference Range Interpretation Comments Magnesium Level (test code = 07554-0) 1.9 1.3-2.1 [facility] HospitalPhosphorus Shvzw5057-44-50 07:35:00* Test Item Value Reference Range Interpretation Comments Phosphorus Level (test code = RXQ8318) 4.8 2.3-4.7 H [facility] HospitalPhosphorus Oresk6664-42-64 07:35:00* Test Item Value Reference Range Interpretation Comments Phosphorus Level (test code = EYZ2924) 4.8 2.3-4.7 H [facility] HospitalWhite Blood Ffxoo3140-50-53 07:05:00* Test Item Value Reference Range Interpretation Comments White Blood Count (test code = 6690-2) 8.12 4.8-10.8 [facility] HospitalRed Blood Fjugp5574-61-70 07:05:00* Test Item Value Reference Range Interpretation Comments Red Blood Count (test code = 789-8) 3.55 3.6-5.1 L [facility] HospitalHemoglobin2018-02-22 07:05:00* Test Item Value Reference Range Interpretation Comments Hemoglobin (test code = 00055-1) 10.2 12.0-16.0 L [facility] HospitalHematocrit2018-02-22 07:05:00* Test Item Value Reference Range Interpretation Comments Hematocrit (test code = 4544-3) 30.5 34.2-44.1 L [facility] HospitalMean Corpuscular Cmwvhd1866-64-72 07:05:00* Test Item Value Reference Range Interpretation Comments Mean Corpuscular Volume (test code = 787-2) 85.9 81-99 [facility] HospitalMean Corpuscular Bmgeadvmby2309-02-14 07:05:00* Test Item Value Reference Range Interpretation Comments Mean Corpuscular Hemoglobin (test code = 785-6) 28.7 28-32 [facility] Corp[facility] Hemoglobin Concent 2017-08-12 07:05:00* Test Item Value Reference Range Interpretation Comments Mean Corpuscular Hemoglobin Concent (test code = 786-4) 33.4 31-35 [facility] HospitalRed Cell Distribution Ozyyt4341-68-97 07:05:00* Test Item Value Reference Range Interpretation Comments Red Cell Distribution Width (test code = 59112-5) 13.8 11.7 -14.4 [facility] HospitalPlatelet Fqwpv4868-80-26 07:05:00* Test Item Value Reference Range Interpretation Comments Platelet Count (test code = 777-3) 194 140-360 [facility] HospitalNeutrophils (%) (Auto)2017-08-12 07:05:00 * Test Item Value Reference Range Interpretation Comments Neutrophils (%) (Auto) (test code = 99034-6) 57.4 38.7-80.0 [facility] HospitalLymphocytes (%) (Auto)2017-08-12 07:05:00 * Test Item Value Reference Range Interpretation Comments Lymphocytes (%) (Auto) (test code = 736-9) 33.6 18.0-39.1 [facility] HospitalMonocytes (%) (Auto)2017-08-12 07:05:00* Test Item Value Reference Range Interpretation Comments Monocytes (%) (Auto) (test code = 5905-5) 6.0 4.4-11.3 [facility] HospitalEosinophils (%) (Auto)2017-08-12 07:05:00 * Test Item Value Reference Range Interpretation Comments Eosinophils (%) (Auto) (test code = 713-8) 2.7 0.0-6.0 [facility] HospitalBasophils (%) (Auto)2017-08-12 07:05:00* Test Item Value Reference Range Interpretation Comments Basophils (%) (Auto) (test code = 706-2) 0.1 0.0-1.0 [facility] HospitalIM GRANULOCYTES %2017-08-12 07:05:00* Test Item Value Reference Range Interpretation Comments IM GRANULOCYTES % (test code = IM GRANULOCYTES %) 0.2 0.0- 1.0 [facility] HospitalNeutrophils # (Auto)2017-08-12 07:05:00* Test Item Value Reference Range Interpretation Comments Neutrophils # (Auto) (test code = 751-8) 4.7 2.1-6.9 [facility] HospitalLymphocytes # (Auto)2017-08-12 07:05:00* Test Item Value Reference Range Interpretation Comments Lymphocytes # (Auto) (test code = 00056-1) 2.7 1.0-3.2 [facility] HospitalMonocytes # (Auto)2017-08-12 07:05:00* Test Item Value Reference Range Interpretation Comments Monocytes # (Auto) (test code = 742-7) 0.5 0.2-0.8 [facility] HospitalEosinophils # (Auto)2017-08-12 07:05:00* Test Item Value Reference Range Interpretation Comments Eosinophils # (Auto) (test code = 711-2) 0.2 0.0-0.4 [facility] HospitalBasophils # (Auto)2017-08-12 07:05:00* Test Item Value Reference Range Interpretation Comments Basophils # (Auto) (test code = 704-7) 0.0 0.0-0.1 [facility] HospitalAbsolute Immature Granulocyte (auto 2017-08-12 07:05:00* Test Item Value Reference Range Interpretation Comments Absolute Immature Granulocyte (auto (tanya t code = Absolute Immature Granulocyte (auto) 0.02 0-0.1 [facility] HospitalWhite Blood Ckcgt0954-00-58 07:05:00* Test Item Value Reference Range Interpretation Comments White Blood Count (test code = 6690-2) 8.12 4.8-10.8 [facility] HospitalRed Blood Vysoz8775-20-16 07:05:00* Test Item Value Reference Range Interpretation Comments Red Blood Count (test code = 789-8) 3.55 3.6-5.1 L [facility] HospitalHemoglobin2018-02-22 07:05:00* Test Item Value Reference Range Interpretation Comments Hemoglobin (test code = 98480-4) 10.2 12.0-16.0 L [facility] HospitalHematocrit2018-02-22 07:05:00* Test Item Value Reference Range Interpretation Comments Hematocrit (test code = 4544-3) 30.5 34.2-44.1 L [facility] HospitalMean Corpuscular Xduxhu4425-00-31 07:05:00* Test Item Value Reference Range Interpretation Comments Mean Corpuscular Volume (test code = 787-2) 85.9 81-99 [facility] HospitalMean Corpuscular Bmmbxcjizb9836-64-89 07:05:00* Test Item Value Reference Range Interpretation Comments Mean Corpuscular Hemoglobin (test code = 785-6) 28.7 28-32 [facility] HospitalMean Corpuscular Hemoglobin Concent 2017-08-12 07:05:00* Test Item Value Reference Range Interpretation Comments Mean Corpuscular Hemoglobin Concent (test code = 786-4) 33.4 31-35 [facility] HospitalRed Cell Distribution Eajmg0736-11-15 07:05:00* Test Item Value Reference Range Interpretation Comments Red Cell Distribution Width (test code = 37266-0) 13.8 11.7 -14.4 [facility] HospitalPlatelet Hfcax8640-29-84 07:05:00* Test Item Value Reference Range Interpretation Comments Platelet Count (test code = 777-3) 194 140-360 [facility] HospitalNeutrophils (%) (Auto)2017-08-12 07:05:00 * Test Item Value Reference Range Interpretation Comments Neutrophils (%) (Auto) (test code = 30763-2) 57.4 38.7-80.0 [facility] HospitalLymphocytes (%) (Auto)2017-08-12 07:05:00 * Test Item Value Reference Range Interpretation Comments Lymphocytes (%) (Auto) (test code = 736-9) 33.6 18.0-39.1 [facility] HospitalMonocytes (%) (Auto)2017-08-12 07:05:00* Test Item Value Reference Range Interpretation Comments Monocytes (%) (Auto) (test code = 5905-5) 6.0 4.4-11.3 [facility] HospitalEosinophils (%) (Auto)2017-08-12 07:05:00 * Test Item Value Reference Range Interpretation Comments Eosinophils (%) (Auto) (test code = 713-8) 2.7 0.0-6.0 [facility] HospitalBasophils (%) (Auto)2017-08-12 07:05:00* Test Item Value Reference Range Interpretation Comments Basophils (%) (Auto) (test code = 706-2) 0.1 0.0-1.0 [facility] HospitalIM GRANULOCYTES %2017-08-12 07:05:00* Test Item Value Reference Range Interpretation Comments IM GRANULOCYTES % (test code = IM GRANULOCYTES %) 0.2 0.0- 1.0 [facility] HospitalNeutrophils # (Auto)2017-08-12 07:05:00* Test Item Value Reference Range Interpretation Comments Neutrophils # (Auto) (test code = 751-8) 4.7 2.1-6.9 [facility] HospitalLymphocytes # (Auto)2017-08-12 07:05:00* Test Item Value Reference Range Interpretation Comments Lymphocytes # (Auto) (test code = 77444-7) 2.7 1.0-3.2 [facility] HospitalMonocytes # (Auto)2017-08-12 07:05:00* Test Item Value Reference Range Interpretation Comments Monocytes # (Auto) (test code = 742-7) 0.5 0.2-0.8 [facility] HospitalEosinophils # (Auto)2017-08-12 07:05:00* Test Item Value Reference Range Interpretation Comments Eosinophils # (Auto) (test code = 711-2) 0.2 0.0-0.4 [facility] HospitalBasophils # (Auto)2017-08-12 07:05:00* Test Item Value Reference Range Interpretation Comments Basophils # (Auto) (test code = 704-7) 0.0 0.0-0.1 [facility] HospitalAbsolute Immature Granulocyte (auto 2017-08-12 07:05:00* Test Item Value Reference Range Interpretation Comments Absolute Immature Granulocyte (auto (tanya t code = Absolute Immature Granulocyte (auto) 0.02 0-0.1 [facility] HospitalWhite Blood Hxxex4884-68-30 07:05:00* Test Item Value Reference Range Interpretation Comments White Blood Count (test code = 6690-2) 8.12 4.8-10.8 [facility] HospitalRed Blood Ibodu7625-54-48 07:05:00* Test Item Value Reference Range Interpretation Comments Red Blood Count (test code = 789-8) 3.55 3.6-5.1 L [facility] HospitalHemoglobin2018-02-22 07:05:00* Test Item Value Reference Range Interpretation Comments Hemoglobin (test code = 65190-2) 10.2 12.0-16.0 L [facility] HospitalHematocrit2018-02-22 07:05:00* Test Item Value Reference Range Interpretation Comments Hematocrit (test code = 4544-3) 30.5 34.2-44.1 L [facility] HospitalMean Corpuscular Zdceai7552-98-69 07:05:00* Test Item Value Reference Range Interpretation Comments Mean Corpuscular Volume (test code = 787-2) 85.9 81-99 [facility] HospitalMean Corpuscular Fbnlimzlfx7211-69-41 07:05:00* Test Item Value Reference Range Interpretation Comments Mean Corpuscular Hemoglobin (test code = 785-6) 28.7 28-32 [facility] HospitalMean Corpuscular Hemoglobin Concent 2017-08-12 07:05:00* Test Item Value Reference Range Interpretation Comments Mean Corpuscular Hemoglobin Concent (test code = 786-4) 33.4 31-35 [facility] HospitalRed Cell Distribution Hlmlh2207-51-00 07:05:00* Test Item Value Reference Range Interpretation Comments Red Cell Distribution Width (test code = 25119-7) 13.8 11.7 -14.4 [facility] HospitalPlatelet Imcvi2350-50-13 07:05:00* Test Item Value Reference Range Interpretation Comments Platelet Count (test code = 777-3) 194 140-360 [facility] HospitalNeutrophils (%) (Auto)2017-08-12 07:05:00 * Test Item Value Reference Range Interpretation Comments Neutrophils (%) (Auto) (test code = 38984-1) 57.4 38.7-80.0 [facility] HospitalLymphocytes (%) (Auto)2017-08-12 07:05:00 * Test Item Value Reference Range Interpretation Comments Lymphocytes (%) (Auto) (test code = 736-9) 33.6 18.0-39.1 [facility] HospitalMonocytes (%) (Auto)2017-08-12 07:05:00* Test Item Value Reference Range Interpretation Comments Monocytes (%) (Auto) (test code = 5905-5) 6.0 4.4-11.3 [facility] HospitalEosinophils (%) (Auto)2017-08-12 07:05:00 * Test Item Value Reference Range Interpretation Comments Eosinophils (%) (Auto) (test code = 713-8) 2.7 0.0-6.0 [facility] HospitalBasophils (%) (Auto)2017-08-12 07:05:00* Test Item Value Reference Range Interpretation Comments Basophils (%) (Auto) (test code = 706-2) 0.1 0.0-1.0 [facility] HospitalIM GRANULOCYTES %2017-08-12 07:05:00* Test Item Value Reference Range Interpretation Comments IM GRANULOCYTES % (test code = IM GRANULOCYTES %) 0.2 0.0- 1.0 [facility] HospitalNeutrophils # (Auto)2017-08-12 07:05:00* Test Item Value Reference Range Interpretation Comments Neutrophils # (Auto) (test code = 751-8) 4.7 2.1-6.9 [facility] HospitalLymphocytes # (Auto)2017-08-12 07:05:00* Test Item Value Reference Range Interpretation Comments Lymphocytes # (Auto) (test code = 44955-2) 2.7 1.0-3.2 [facility] HospitalMonocytes # (Auto)2017-08-12 07:05:00* Test Item Value Reference Range Interpretation Comments Monocytes # (Auto) (test code = 742-7) 0.5 0.2-0.8 [facility] HospitalEosinophils # (Auto)2017-08-12 07:05:00* Test Item Value Reference Range Interpretation Comments Eosinophils # (Auto) (test code = 711-2) 0.2 0.0-0.4 [facility] HospitalBasophils # (Auto)2017-08-12 07:05:00* Test Item Value Reference Range Interpretation Comments Basophils # (Auto) (test code = 704-7) 0.0 0.0-0.1 [facility] HospitalAbsolute Immature Granulocyte (auto 2017-08-12 07:05:00* Test Item Value Reference Range Interpretation Comments Absolute Immature Granulocyte (auto (tanya t code = Absolute Immature Granulocyte (auto) 0.02 0-0.1 [facility] HospitalWhite Blood Jxded5850-33-57 07:05:00* Test Item Value Reference Range Interpretation Comments White Blood Count (test code = 6690-2) 8.12 4.8-10.8 [facility] HospitalRed Blood Dyvcw0576-38-06 07:05:00* Test Item Value Reference Range Interpretation Comments Red Blood Count (test code = 789-8) 3.55 3.6-5.1 L [facility] HospitalHemoglobin2018-02-22 07:05:00* Test Item Value Reference Range Interpretation Comments Hemoglobin (test code = 94322-4) 10.2 12.0-16.0 L [facility] HospitalHematocrit2018-02-22 07:05:00* Test Item Value Reference Range Interpretation Comments Hematocrit (test code = 4544-3) 30.5 34.2-44.1 L [facility] HospitalMean Corpuscular Pcsrny4158-56-63 07:05:00* Test Item Value Reference Range Interpretation Comments Mean Corpuscular Volume (test code = 787-2) 85.9 81-99 [facility] HospitalMean Corpuscular Xciclvvauf6540-91-24 07:05:00* Test Item Value Reference Range Interpretation Comments Mean Corpuscular Hemoglobin (test code = 785-6) 28.7 28-32 [facility] HospitalMean Corpuscular Hemoglobin Concent 2017-08-12 07:05:00* Test Item Value Reference Range Interpretation Comments Mean Corpuscular Hemoglobin Concent (test code = 786-4) 33.4 31-35 [facility] HospitalRed Cell Distribution Omldm8187-76-66 07:05:00* Test Item Value Reference Range Interpretation Comments Red Cell Distribution Width (test code = 55123-3) 13.8 11.7 -14.4 [facility] HospitalPlatelet Jqrvg5614-20-54 07:05:00* Test Item Value Reference Range Interpretation Comments Platelet Count (test code = 777-3) 194 140-360 [facility] HospitalNeutrophils (%) (Auto)2017-08-12 07:05:00 * Test Item Value Reference Range Interpretation Comments Neutrophils (%) (Auto) (test code = 15021-9) 57.4 38.7-80.0 [facility] HospitalLymphocytes (%) (Auto)2017-08-12 07:05:00 * Test Item Value Reference Range Interpretation Comments Lymphocytes (%) (Auto) (test code = 736-9) 33.6 18.0-39.1 [facility] HospitalMonocytes (%) (Auto)2017-08-12 07:05:00* Test Item Value Reference Range Interpretation Comments Monocytes (%) (Auto) (test code = 5905-5) 6.0 4.4-11.3 [facility] HospitalEosinophils (%) (Auto)2017-08-12 07:05:00 * Test Item Value Reference Range Interpretation Comments Eosinophils (%) (Auto) (test code = 713-8) 2.7 0.0-6.0 [facility] HospitalBasophils (%) (Auto)2017-08-12 07:05:00* Test Item Value Reference Range Interpretation Comments Basophils (%) (Auto) (test code = 706-2) 0.1 0.0-1.0 [facility] HospitalIM GRANULOCYTES %2017-08-12 07:05:00* Test Item Value Reference Range Interpretation Comments IM GRANULOCYTES % (test code = IM GRANULOCYTES %) 0.2 0.0- 1.0 [facility] HospitalNeutrophils # (Auto)2017-08-12 07:05:00* Test Item Value Reference Range Interpretation Comments Neutrophils # (Auto) (test code = 751-8) 4.7 2.1-6.9 [facility] HospitalLymphocytes # (Auto)2017-08-12 07:05:00* Test Item Value Reference Range Interpretation Comments Lymphocytes # (Auto) (test code = 83067-2) 2.7 1.0-3.2 [facility] HospitalMonocytes # (Auto)2017-08-12 07:05:00* Test Item Value Reference Range Interpretation Comments Monocytes # (Auto) (test code = 742-7) 0.5 0.2-0.8 [facility] HospitalEosinophils # (Auto)2017-08-12 07:05:00* Test Item Value Reference Range Interpretation Comments Eosinophils # (Auto) (test code = 711-2) 0.2 0.0-0.4 [facility] HospitalBasophils # (Auto)2017-08-12 07:05:00* Test Item Value Reference Range Interpretation Comments Basophils # (Auto) (test code = 704-7) 0.0 0.0-0.1 [facility] HospitalAbsolute Immature Granulocyte (auto 2017-08-12 07:05:00* Test Item Value Reference Range Interpretation Comments Absolute Immature Granulocyte (auto (tanya t code = Absolute Immature Granulocyte (auto) 0.02 0-0.1 [facility] HospitalUrine [id number] 09:13:00* Test Item Value Reference Range Interpretation Comments Urine WBC (test code = 5821-4) 11-20 0-5 H [facility] HospitalUrine TDM0905-36-32 09:13:00* Test Item Value Reference Range Interpretation Comments Urine RBC (test code = 65866-3) 0-5 0-5 [facility] HospitalUrine Zhdaxgqs6669-73-50 09:13:00* Test Item Value Reference Range Interpretation Comments Urine Bacteria (test code = 45118-0) RARE NONE [facility] HospitalUrine Epithelial Ydyoj1844-51-60 09:13:00 * Test Item Value Reference Range Interpretation Comments Urine Epithelial Cells (test code = 98578-3) MANY NONE [facility] HospitalUrine [id number] 09:13:00* Test Item Value Reference Range Interpretation Comments Urine WBC (test code = 5821-4) 11-20 0-5 H [facility] HospitalUrine SOT4659-37-76 09:13:00* Test Item Value Reference Range Interpretation Comments Urine RBC (test code = 18199-5) 0-5 0-5 [facility] HospitalUrine Qtfkwrks7770-25-09 09:13:00* Test Item Value Reference Range Interpretation Comments Urine Bacteria (test code = 93031-7) RARE NONE [facility] HospitalUrine Epithelial Rwfts7363-85-65 09:13:00 * Test Item Value Reference Range Interpretation Comments Urine Epithelial Cells (test code = 31559-9) MANY NONE [facility] HospitalUrine MFD5684-58-72 09:13:00* Test Item Value Reference Range Interpretation Comments Urine WBC (test code = 5821-4) 11-20 0-5 H [facility] DKB1673-55-58 09:13:00* Test Item Value Reference Range Interpretation Comments Urine RBC (test code = 45854-6) 0-5 0-5 [facility] Wjiozuil3317-36-54 09:13:00* Test Item Value Reference Range Interpretation Comments Urine Bacteria (test code = 02187-5) RARE NONE [facility] HospitalUrine Epithelial Vpcoa7011-71-19 09:13:00 * Test Item Value Reference Range Interpretation Comments Urine Epithelial Cells (test code = 02711-4) MANY NONE [facility] HospitalUrine [id number] 09:13:00* Test Item Value Reference Range Interpretation Comments Urine WBC (test code = 5821-4) 11-20 0-5 H [facility] HospitalUrine [id number] 09:13:00* Test Item Value Reference Range Interpretation Comments Urine RBC (test code = 87484-0) 0-5 0-5 [facility] HospitalUrine Jrlejtdi1754-45-50 09:13:00* Test Item Value Reference Range Interpretation Comments Urine Bacteria (test code = 97481-7) RARE NONE [facility] HospitalUrine Epithelial Csxzi0966-13-82 09:13:00 * Test Item Value Reference Range Interpretation Comments Urine Epithelial Cells (test code = 08522-6) MANY NONE [facility] HospitalUrine Hvuyi3517-95-99 08:57:00* Test Item Value Reference Range Interpretation Comments Urine Color (test code = 5778-6) YELLOW YELLOW [facility] HospitalUrine Hjmhbmu7307-21-56 08:57:00* Test Item Value Reference Range Interpretation Comments Urine Clarity (test code = 49888-2) CLEAR CLEAR [facility] Specific Slnlknk6623-92-49 08:57:00 * Test Item Value Reference Range Interpretation Comments Urine Specific [place] (test code = 5811-5) 1.015 1.010-1.02 5 [facility] HospitalUrine [id number] 08:57:00* Test Item Value Reference Range Interpretation Comments Urine pH (test code = 99715-2) 5 5-7 [facility] Leukocyte Ccurncwk9804-48-98 08:57:00* Test Item Value Reference Range Interpretation Comments Urine Leukocyte Esterase (test code = 5799-2) TRACE NEGATIVE H [facility] Rsheacn1989-85-96 08:57:00* Test Item Value Reference Range Interpretation Comments Urine Nitrite (test code = 49243-0) NEGATIVE NEGATIVE [facility] Ppoppks9060-37-14 08:57:00* Test Item Value Reference Range Interpretation Comments Urine Protein (test code = 5804-0) 3+ NEGATIVE H [facility] Glucose (UA)2017-08-08 08:57:00* Test Item Value Reference Range Interpretation Comments Urine Glucose (UA) (test code = 2349-9) [facility]GATIVE [facility] Swtygtb8913-47-63 08:57:00* Test Item Value Reference Range Interpretation Comments Urine Ketones (test code = 93122-6) NEGATIVE NEGATIVE [facility] Jwrswayrqkii3965-98-92 08:57:00* Test Item Value Reference Range Interpretation Comments Urine Urobilinogen (test code = 76571-8) 0.2 0.2-1 [facility] Mzucttguk6905-17-51 08:57:00* Test Item Value Reference Range Interpretation Comments Urine Bilirubin (test code = 1978-6) NEGATIVE NEGATIVE [facility] Capxn2240-95-72 08:57:00* Test Item Value Reference Range Interpretation Comments Urine Blood (test code = 69164-8) TRACE NEGATIVE H [facility] Nvraf7812-11-47 08:57:00* Test Item Value Reference Range Interpretation Comments Urine Color (test code = 5778-6) YELLOW YELLOW [facility] Yuoezxn8529-32-30 08:57:00* Test Item Value Reference Range Interpretation Comments Urine Clarity (test code = 92227-6) CLEAR CLEAR [facility] Specific Ppegcuh5619-64-46 08:57:00 * Test Item Value Reference Range Interpretation Comments Urine Specific [place] (test code = 5811-5) 1.015 1.010-1.02 5 [facility] uX2522-89-08 08:57:00* Test Item Value Reference Range Interpretation Comments Urine pH (test code = 28175-1) 5 5-7 [facility] Leukocyte Jlolmvhl0072-16-17 08:57:00* Test Item Value Reference Range Interpretation Comments Urine Leukocyte Esterase (test code = 5799-2) TRACE NEGATIVE H [facility] Eizayao1206-83-27 08:57:00* Test Item Value Reference Range Interpretation Comments Urine Nitrite (test code = 55156-3) NEGATIVE NEGATIVE [facility] Edjpjjv3789-55-77 08:57:00* Test Item Value Reference Range Interpretation Comments Urine Protein (test code = 5804-0) 3+ NEGATIVE H [facility] Glucose (UA)2017-08-08 08:57:00* Test Item Value Reference Range Interpretation Comments Urine Glucose (UA) (test code = 2349-9) TRACE NEGATIVE H [facility] Bpuwcph3779-00-87 08:57:00* Test Item Value Reference Range Interpretation Comments Urine Ketones (test code = 64700-1) NEGATIVE NEGATIVE [facility] Winolbjdgvly1182-50-64 08:57:00* Test Item Value Reference Range Interpretation Comments Urine Urobilinogen (test code = 64580-6) 0.2 0.2-1 [facility] Udycrkjkh3593-08-46 08:57:00* Test Item Value Reference Range Interpretation Comments Urine Bilirubin (test code = 1978-6) NEGATIVE NEGATIVE [facility] Scrnr5880-14-60 08:57:00* Test Item Value Reference Range Interpretation Comments Urine Blood (test code = 14579-0) TRACE NEGATIVE H [facility] Xywoq0428-66-61 08:57:00* Test Item Value Reference Range Interpretation Comments Urine Color (test code = 5778-6) YELLOW YELLOW [facility] Ribnbbs5843-96-68 08:57:00* Test Item Value Reference Range Interpretation Comments Urine Clarity (test code = 24307-8) CLEAR CLEAR [facility] Specific Rxbjlpr9884-79-94 08:57:00 * Test Item Value Reference Range Interpretation Comments Urine Specific [place] (test code = 5811-5) 1.015 1.010-1.02 5 [facility] tU2159-53-82 08:57:00* Test Item Value Reference Range Interpretation Comments Urine pH (test code = 43262-5) 5 5-7 [facility] Leukocyte Gyurbstq6027-21-61 08:57:00* Test Item Value Reference Range Interpretation Comments Urine Leukocyte Esterase (test code = 5799-2) TRACE NEGATIVE H [facility] Yzffohz8832-64-10 08:57:00* Test Item Value Reference Range Interpretation Comments Urine Nitrite (test code = 32357-6) NEGATIVE NEGATIVE [facility] Fjwyydi5862-74-52 08:57:00* Test Item Value Reference Range Interpretation Comments Urine Protein (test code = 5804-0) 3+ NEGATIVE H [facility] Glucose (UA)2017-08-08 08:57:00* Test Item Value Reference Range Interpretation Comments Urine Glucose (UA) (test code = 2349-9) TRACE NEGATIVE H [facility] Vksgvul7711-72-61 08:57:00* Test Item Value Reference Range Interpretation Comments Urine Ketones (test code = 34911-6) NEGATIVE NEGATIVE [facility] Iodfsymcjmfe2296-72-92 08:57:00* Test Item Value Reference Range Interpretation Comments Urine Urobilinogen (test code = 02254-6) 0.2 0.2-1 [facility] Chbyfacfy4895-39-87 08:57:00* Test Item Value Reference Range Interpretation Comments Urine Bilirubin (test code = 1978-6) NEGATIVE NEGATIVE [facility] Lvuqq6503-42-21 08:57:00* Test Item Value Reference Range Interpretation Comments Urine Blood (test code = 11462-6) TRACE NEGATIVE H [facility] Gnazj6502-76-08 08:57:00* Test Item Value Reference Range Interpretation Comments Urine Color (test code = 5778-6) YELLOW YELLOW [facility] Ptrnzqs6873-49-37 08:57:00* Test Item Value Reference Range Interpretation Comments Urine Clarity (test code = 28286-3) CLEAR CLEAR [facility] Specific Uafwgwu8328-65-69 08:57:00 * Test Item Value Reference Range Interpretation Comments Urine Specific [place] (test code = 5811-5) 1.015 1.010-1.02 5 [facility] mI7017-51-79 08:57:00* Test Item Value Reference Range Interpretation Comments Urine pH (test code = 69381-5) 5 5-7 [facility] Leukocyte Fzwkcrvk2323-60-85 08:57:00* Test Item Value Reference Range Interpretation Comments Urine Leukocyte Esterase (test code = 5799-2) TRACE NEGATIVE H [facility] Zppyuxf1387-41-48 08:57:00* Test Item Value Reference Range Interpretation Comments Urine Nitrite (test code = 30330-9) NEGATIVE NEGATIVE [facility] Vybfjrr7168-55-73 08:57:00* Test Item Value Reference Range Interpretation Comments Urine Protein (test code = 5804-0) 3+ NEGATIVE H [facility] Glucose (UA)2017-08-08 08:57:00* Test Item Value Reference Range Interpretation Comments Urine Glucose (UA) (test code = 2349-9) TRACE NEGATIVE H [facility] Ulsguha9625-85-49 08:57:00* Test Item Value Reference Range Interpretation Comments Urine Ketones (test code = 95452-2) NEGATIVE NEGATIVE [facility] Pomjfhmzijml6523-18-24 08:57:00* Test Item Value Reference Range Interpretation Comments Urine Urobilinogen (test code = 58507-9) 0.2 0.2-1 [facility] Xnnhzmosf4964-97-80 08:57:00* Test Item Value Reference Range Interpretation Comments Urine Bilirubin (test code = 1978-6) NEGATIVE NEGATIVE [facility] Lrkul9111-96-74 08:57:00* Test Item Value Reference Range Interpretation Comments Urine Blood (test code = 35374-9) TRACE NEGATIVE H [facility] HospitalB-Type Natriuretic Cddylaq2980-22-33 08:44:00* Test Item Value Reference Range Interpretation Comments B-Type Natriuretic Peptide (test code = 89832-8) 69.2 0-100 [facility] Nat[facility]tic Eabbqoh0109-94-11 08:44:00* Test Item Value Reference Range Interpretation Comments B-Type Natriuretic Peptide (test code = 88187-2) 69.2 0-100 [facility] Natri[facility]tic Qrdzjbp3656-25-75 08:44:00* Test Item Value Reference Range Interpretation Comments B-Type Natriuretic Peptide (test code = 92392-8) 69.2 0-100 [facility] Natri[facility]tic Syxrlep3984-60-59 08:44:00* Test Item Value Reference Range Interpretation Comments B-Type Natriuretic Peptide (test code = 45809-1) 69.2 0-100 [facility]2018-02-15 07:28:00* Test Item Value Reference Range Interpretation Comments Ammonia (test code = 86033-5) 52 31-123 [facility]2018-02-15 07:28:00* Test Item Value Reference Range Interpretation Comments Ammonia (test code = 32712-9) 52 31-123 [facility]2018-02-15 07:28:00* Test Item Value Reference Range Interpretation Comments Ammonia (test code = 28341-2) 52 31-123 [facility]2018-02-15 07:28:00* Test Item Value Reference Range Interpretation Comments Ammonia (test code = 81137-4) 52 31-123 [facility]2018-02-15 07:28:00* Test Item Value Reference Range Interpretation Comments Ammonia (test code = 00269-1) 52 31-123 [facility]2018-02-15 07:28:00* Test Item Value Reference Range Interpretation Comments Ammonia (test code = 94897-2) 52 31-123 [facility] HospitalHemoglobin A1c Gbzwsat0301-51-17 15:36:00 * Test Item Value Reference Range Interpretation Comments Hemoglobin A1c Percent (test code = Hemoglobin A1c Percent) 8.0 4.0-7.0 H [facility] HospitalHemoglobin A1c Gskndtn0739-99-68 15:36:00 * Test Item Value Reference Range Interpretation Comments Hemoglobin A1c Percent (test code = Hemoglobin A1c Percent) 8.0 4.0-7.0 H [facility] HospitalHemoglobin A1c Xrqizkb4986-45-23 15:36:00 * Test Item Value Reference Range Interpretation Comments Hemoglobin A1c Percent (test code = Hemoglobin A1c Percent) 8.0 4.0-7.0 H [facility] HospitalHemoglobin A1c Etbzykc5998-88-32 15:36:00 * Test Item Value Reference Range Interpretation Comments Hemoglobin A1c Percent (test code = Hemoglobin A1c Percent) 8.0 4.0-7.0 H [facility] HospitalCreatine Kinase MH1036-14-82 13:35:00* Test Item Value Reference Range Interpretation Comments Creatine Kinase MB (test code = 67324-1) 2.70 0.00-5.00 [facility] HospitalTroponin N9300-91-02 13:35:00* Test Item Value Reference Range Interpretation Comments Troponin I (test code = AKS3937) 0.032 0-0.300 [facility] HospitalCreatine Kinase VI3179-02-93 13:35:00* Test Item Value Reference Range Interpretation Comments Creatine Kinase MB (test code = 08866-6) 2.70 0.00-5.00 [place] 09553018-02-11 13:35:00* Test Item Value Reference Range Interpretation Comments Troponin I (test code = MKS0454) 0.032 0-0.300 [facility] HospitalCreatine Kinase TA8232-32-55 13:35:00* Test Item Value Reference Range Interpretation Comments Creatine Kinase MB (test code = 08697-0) 2.70 0.00-5.00 [place] 09553018-02-11 13:35:00* Test Item Value Reference Range Interpretation Comments Troponin I (test code = TYL7976) 0.032 0-0.300 [facility] HospitalCreatine Kinase VJ2713-21-69 13:35:00* Test Item Value Reference Range Interpretation Comments Creatine Kinase MB (test code = 64066-0) 2.70 0.00-5.00 [place] 09553018-02-11 13:35:00* Test Item Value Reference Range Interpretation Comments Troponin I (test code = QVL8602) 0.032 0-0.300 [facility] HospitalCreatine Kkxsfq8190-33-09 13:28:00* Test Item Value Reference Range Interpretation Comments Creatine Kinase (test code = 2157-6) 211 29-168 H [facility] HospitalCreatine Mwviyf1506-37-98 13:28:00* Test Item Value Reference Range Interpretation Comments Creatine Kinase (test code = 2157-6) 211 29-168 H [facility] Cdhnpn8974-77-77 13:28:00* Test Item Value Reference Range Interpretation Comments Creatine Kinase (test code = 2157-6) 211 29-168 H [facility]2018-02-11 13:28:00* Test Item Value Reference Range Interpretation Comments Creatine Kinase (test code = 2157-6) 211 29-168 H [facility] HospitalTotal Fylsksmlf4531-81-13 05:40:00* Test Item Value Reference Range Interpretation Comments Total Bilirubin (test code = 1975-2) 0.6 0.2-1.2 [facility] HospitalAspartate Amino Transf (AST/SGOT) 2017-08-01 05:40:00* Test Item Value Reference Range Interpretation Comments Aspartate Amino Transf (AST/SGOT) (test code = Aspartate Amino Transf (AST/SGOT)) 16 5-34 [facility] HospitalAlanine Aminotransferase (ALT/SGPT) 2017-08-01 05:40:00* Test Item Value Reference Range Interpretation Comments Alanine Aminotransferase (ALT/SGPT) (test code = 1742-6) 6 0-55 [facility] HospitalTotal Wkbdobs4425-09-03 05:40:00* Test Item Value Reference Range Interpretation Comments Total Protein (test code = 2885-2) 6.6 6.5-8.1 [facility] HospitalAlbumin2018-02-11 05:40:00* Test Item Value Reference Range Interpretation Comments Albumin (test code = 1751-7) 3.2 3.5-5.0 L [facility] HospitalGlobulin2018-02-11 05:40:00* Test Item Value Reference Range Interpretation Comments Globulin (test code = 45509-9) 3.4 2.3-3.5 [facility] HospitalAlbumin/Globulin Rbvoz6638-85-56 05:40:00 * Test Item Value Reference Range Interpretation Comments Albumin/Globulin Ratio (test code = 1759-0) 0.9 0.8-2.0 [facility] HospitalAlkaline Pllxpslkmat2950-04-72 05:40:00* Test Item Value Reference Range Interpretation Comments Alkaline Phosphatase (test code = 6768-6) 54 40-150 [facility] HospitalTriglycerides Lsfvm2868-73-38 05:40:00* Test Item Value Reference Range Interpretation Comments Triglycerides Level (test code = 2571-8) 246 0-149 H [facility] HospitalCholesterol Hqtxs2241-67-09 05:40:00* Test Item Value Reference Range Interpretation Comments Cholesterol Level (test code = 2093-3) 223 0-199 H Less than 200 mg/dL Low Imcj351 - 239 mg/dL Borderline Ufjf003 m g/dl and greater High Risk [facility] HospitalLDL Xujknbuwkfp8735-17-01 05:40:00* Test Item Value Reference Range Interpretation Comments LDL Cholesterol (test code = 2089-1) 138 60-130 H [facility] HospitalHDL Tkpzbjqgciz3037-20-16 05:40:00* Test Item Value Reference Range Interpretation Comments HDL Cholesterol (test code = 2085-9) 36 40-60 L [facility] HospitalCholesterol/HDL Aatcy7400-58-36 05:40:00 * Test Item Value Reference Range Interpretation Comments Cholesterol/HDL Ratio (test code = 9830-1) 6.2 3.0-3.6 H [facility] HospitalTotal Ddohrgsbl2860-04-51 05:40:00* Test Item Value Reference Range Interpretation Comments Total Bilirubin (test code = 1975-2) 0.6 0.2-1.2 [facility] HospitalAspartate Amino Transf (AST/SGOT) 2017-08-01 05:40:00* Test Item Value Reference Range Interpretation Comments Aspartate Amino Transf (AST/SGOT) (test code = Aspartate Amino Transf (AST/SGOT)) 16 5-34 [facility] HospitalAlanine Aminotransferase (ALT/SGPT) 2017-08-01 05:40:00* Test Item Value Reference Range Interpretation Comments Alanine Aminotransferase (ALT/SGPT) (test code = 1742-6) 6 0-55 [facility] HospitalTotal Dyqjodm0448-86-33 05:40:00* Test Item Value Reference Range Interpretation Comments Total Protein (test code = 2885-2) 6.6 6.5-8.1 [facility] HospitalAlbumin2018-02-11 05:40:00* Test Item Value Reference Range Interpretation Comments Albumin (test code = 1751-7) 3.2 3.5-5.0 L [facility] HospitalGlobulin2018-02-11 05:40:00* Test Item Value Reference Range Interpretation Comments Globulin (test code = 26949-8) 3.4 2.3-3.5 [facility] HospitalAlbumin/Globulin Cypto9307-09-54 05:40:00 * Test Item Value Reference Range Interpretation Comments Albumin/Globulin Ratio (test code = 1759-0) 0.9 0.8-2.0 [facility] HospitalAlkaline Uimsplwtyni5741-93-55 05:40:00* Test Item Value Reference Range Interpretation Comments Alkaline Phosphatase (test code = 6768-6) 54 40-150 [facility] HospitalTriglycerides Rpknu2462-15-62 05:40:00* Test Item Value Reference Range Interpretation Comments Triglycerides Level (test code = 2571-8) 246 0-149 H [facility] HospitalCholesterol Gaqbp7349-79-47 05:40:00* Test Item Value Reference Range Interpretation Comments Cholesterol Level (test code = 2093-3) 223 0-199 H Less than 200 mg/dL Low Fdtj385 - 239 mg/dL Borderline Oemw488 m g/dl and greater High Risk [facility] HospitalLDL Wtaumvzlist6415-01-56 05:40:00* Test Item Value Reference Range Interpretation Comments LDL Cholesterol (test code = 2089-1) 138 60-130 H [facility] HospitalHDL Wmjyseznjkz3488-19-57 05:40:00* Test Item Value Reference Range Interpretation Comments HDL Cholesterol (test code = 2085-9) 36 40-60 L [facility] HospitalCholesterol/HDL Xrtee9860-69-73 05:40:00 * Test Item Value Reference Range Interpretation Comments Cholesterol/HDL Ratio (test code = 9830-1) 6.2 3.0-3.6 H [facility] HospitalTotal Iupaxxzbi8170-12-94 05:40:00* Test Item Value Reference Range Interpretation Comments Total Bilirubin (test code = 1975-2) 0.6 0.2-1.2 [facility] HospitalAspartate Amino Transf (AST/SGOT) 2017-08-01 05:40:00* Test Item Value Reference Range Interpretation Comments Aspartate Amino Transf (AST/SGOT) (test code = Aspartate Amino Transf (AST/SGOT)) 16 5-34 [facility] HospitalAlanine Aminotransferase (ALT/SGPT) 2017-08-01 05:40:00* Test Item Value Reference Range Interpretation Comments Alanine Aminotransferase (ALT/SGPT) (test code = 1742-6) 6 0-55 [facility] HospitalTotal Zxtdjbi3919-43-43 05:40:00* Test Item Value Reference Range Interpretation Comments Total Protein (test code = 2885-2) 6.6 6.5-8.1 [facility] HospitalAlbumin2018-02-11 05:40:00* Test Item Value Reference Range Interpretation Comments Albumin (test code = 1751-7) 3.2 3.5-5.0 L [facility] HospitalGlobulin2018-02-11 05:40:00* Test Item Value Reference Range Interpretation Comments Globulin (test code = 01126-0) 3.4 2.3-3.5 [facility] HospitalAlbumin/Globulin Wfufr4587-50-22 05:40:00 * Test Item Value Reference Range Interpretation Comments Albumin/Globulin Ratio (test code = 1759-0) 0.9 0.8-2.0 [facility] HospitalAlkaline Etunqnvmllu5169-46-07 05:40:00* Test Item Value Reference Range Interpretation Comments Alkaline Phosphatase (test code = 6768-6) 54 40-150 [facility] HospitalTriglycerides Vcwpb8130-65-71 05:40:00* Test Item Value Reference Range Interpretation Comments Triglycerides Level (test code = 2571-8) 246 0-149 H [facility] HospitalCholesterol Dykqi7702-01-16 05:40:00* Test Item Value Reference Range Interpretation Comments Cholesterol Level (test code = 2093-3) 223 0-199 H Less than 200 mg/dL Low Aqbj475 - 239 mg/dL Borderline Iyuw534 m g/dl and greater High Risk [facility] HospitalLDL Gfkgsreceta6370-28-25 05:40:00* Test Item Value Reference Range Interpretation Comments LDL Cholesterol (test code = 2089-1) 138 60-130 H [facility] HospitalHDL Bupyptosxqt1003-87-53 05:40:00* Test Item Value Reference Range Interpretation Comments HDL Cholesterol (test code = 2085-9) 36 40-60 L [facility] HospitalCholesterol/HDL Nzglx8230-71-21 05:40:00 * Test Item Value Reference Range Interpretation Comments Cholesterol/HDL Ratio (test code = 9830-1) 6.2 3.0-3.6 H [facility] HospitalTotal Fnowgjkaq2742-41-89 05:40:00* Test Item Value Reference Range Interpretation Comments Total Bilirubin (test code = 1975-2) 0.6 0.2-1.2 [facility] HospitalAspartate Amino Transf (AST/SGOT) 2017-08-01 05:40:00* Test Item Value Reference Range Interpretation Comments Aspartate Amino Transf (AST/SGOT) (test code = Aspartate Amino Transf (AST/SGOT)) 16 5-34 [facility] HospitalAlanine Aminotransferase (ALT/SGPT) 2017-08-01 05:40:00* Test Item Value Reference Range Interpretation Comments Alanine Aminotransferase (ALT/SGPT) (test code = 1742-6) 6 0-55 [facility] Joetjai0570-13-06 05:40:00* Test Item Value Reference Range Interpretation Comments Total Protein (test code = 2885-2) 6.6 6.5-8.1 [facility] HospitalAlbumin2018-02-11 05:40:00* Test Item Value Reference Range Interpretation Comments Albumin (test code = 1751-7) 3.2 3.5-5.0 L [facility] HospitalGlobulin2018-02-11 05:40:00* Test Item Value Reference Range Interpretation Comments Globulin (test code = 83132-7) 3.4 2.3-3.5 [facility] HospitalAlbumin/Globulin Ilpjr8600-84-03 05:40:00 * Test Item Value Reference Range Interpretation Comments Albumin/Globulin Ratio (test code = 1759-0) 0.9 0.8-2.0 [facility] HospitalAlkaline Ainwvnobnac0558-75-11 05:40:00* Test Item Value Reference Range Interpretation Comments Alkaline Phosphatase (test code = 6768-6) 54 40-150 [facility] HospitalTriglycerides Yebsq3888-98-24 05:40:00* Test Item Value Reference Range Interpretation Comments Triglycerides Level (test code = 2571-8) 246 0-149 H [facility] HospitalCholesterol Dhodj4861-64-23 05:40:00* Test Item Value Reference Range Interpretation Comments Cholesterol Level (test code = 2093-3) 223 0-199 H Less than 200 mg/dL Low Kjfk061 - 239 mg/dL Borderline Jopx624 m g/dl and greater High Risk [facility] HospitalLDL Nbsvioqvocw3416-54-10 05:40:00* Test Item Value Reference Range Interpretation Comments LDL Cholesterol (test code = 2089-1) 138 60-130 H [facility] HospitalHDL Qwsbmyzxxpy5462-26-12 05:40:00* Test Item Value Reference Range Interpretation Comments HDL Cholesterol (test code = 2085-9) 36 40-60 L [facility] HospitalCholesterol/HDL Uxgje3408-75-35 05:40:00 * Test Item Value Reference Range Interpretation Comments Cholesterol/HDL Ratio (test code = 9830-1) 6.2 3.0-3.6 H [facility] HospitalAmylase Mylye4909-09-70 16:39:00* Test Item Value Reference Range Interpretation Comments Amylase Level (test code = 1798-8) 14 25-125 L [facility] HospitalLipase2018-02-10 16:39:00* Test Item Value Reference Range Interpretation Comments Lipase (test code = 3040-3) 878 [facility] HospitalAmylase Ymnft5898-17-79 16:39:00* Test Item Value Reference Range Interpretation Comments Amylase Level (test code = 1798-8) 14 25-125 L [facility] HospitalLipase2018-02-10 16:39:00* Test Item Value Reference Range Interpretation Comments Lipase (test code = 3040-3) 8 [facility] HospitalAmylase Pbmxu9526-50-60 16:39:00* Test Item Value Reference Range Interpretation Comments Amylase Level (test code = 1798-8) 14 25-125 L [facility] HospitalLipase2018-02-10 16:39:00* Test Item Value Reference Range Interpretation Comments Lipase (test code = 3040-3) [facility] HospitalAmylase Ejuoh7520-80-24 16:39:00* Test Item Value Reference Range Interpretation Comments Amylase Level (test code = 1798-8) 14 25-125 L [facility] HospitalLipase2018-02-10 16:39:00* Test Item Value Reference Range Interpretation Comments Lipase (test code = 3040-3) [facility] HospitalAmylase [id number] 16:39:00* Test Item Value Reference Range Interpretation Comments Amylase Level (test code = 1798-8) 14 25-125 L [facility] HospitalLipase2018-02-10 16:39:00* Test Item Value Reference Range Interpretation Comments Lipase (test code = 3040-3) [facility] HospitalAmylase Wzhwo0536-07-01 16:39:00* Test Item Value Reference Range Interpretation Comments Amylase Level (test code = 1798-8) 14 25-125 L [facility] HospitalLipase2018-02-10 16:39:00* Test Item Value Reference Range Interpretation Comments Lipase (test code = 3040-3) [facility] HospitalProthrombin Mlzq5159-75-54 16:04:00* Test Item Value Reference Range Interpretation Comments Prothrombin Time (test code = 5902-2) 16.3 11.9-14.5 H [facility] HospitalProthromb Time International Ratio 2017-07-31 16:04:00* Test Item Value Reference Range Interpretation Comments Prothromb Time International Ratio (test code = 6301-6) 1.42 Oral Anticoagulant Therapy INR Values:1. Low Intensity Therapy 1.5 - 2.02 . Moderate Intensity Therapy 2.0 - 3.03. High Intensity Therapy(1) 2.5 - 3. 54. High Intensity Therapy(2) 3.0 - 4.05. Panic Value INR > 5.0 [facility] HospitalActivated Partial Thromboplast Time 2017-07-31 16:04:00* Test Item Value Reference Range Interpretation Comments Activated Partial Thromboplast Time (test code = 90615-3) 30.1 23.8-35.5 [facility] HospitalProthrombin Nlra0970-70-17 16:04:00* Test Item Value Reference Range Interpretation Comments Prothrombin Time (test code = 5902-2) 16.3 11.9-14.5 H [facility] HospitalProthromb Time International Ratio 2017-07-31 16:04:00* Test Item Value Reference Range Interpretation Comments Prothromb Time International Ratio (test code = 6301-6) 1.42 Oral Anticoagulant Therapy INR Values:1. Low Intensity Therapy 1.5 - 2.02 . Moderate Intensity Therapy 2.0 - 3.03. High Intensity Therapy(1) 2.5 - 3. 54. High Intensity Therapy(2) 3.0 - 4.05. Panic Value INR > 5.0 [facility] HospitalActivated Partial Thromboplast Time 2017-07-31 16:04:00* Test Item Value Reference Range Interpretation Comments Activated Partial Thromboplast Time (test code = 59837-8) 30.1 23.8-35.5 [facility] HospitalProthrombin [id number] 16:04:00* Test Item Value Reference Range Interpretation Comments Prothrombin Time (test code = 5902-2) 16.3 11.9-14.5 H [facility] HospitalProthromb Time International Ratio 2017-07-31 16:04:00* Test Item Value Reference Range Interpretation Comments Prothromb Time International Ratio (test code = 6301-6) 1.42 Oral Anticoagulant Therapy INR Values:1. Low Intensity Therapy 1.5 - 2.02 . Moderate Intensity Therapy 2.0 - 3.03. High Intensity Therapy(1) 2.5 - 3. 54. High Intensity Therapy(2) 3.0 - 4.05. Panic Value INR > 5.0 [facility] HospitalActivated Partial Thromboplast Time 2017-07-31 16:04:00* Test Item Value Reference Range Interpretation Comments Activated Partial Thromboplast Time (test code = 12452-4) 30.1 23.8-35.5 [facility] HospitalProthrombin [id number] 16:04:00* Test Item Value Reference Range Interpretation Comments Prothrombin Time (test code = 5902-2) 16.3 11.9-14.5 H [facility] HospitalProthromb Time International Ratio 2017-07-31 16:04:00* Test Item Value Reference Range Interpretation Comments Prothromb Time International Ratio (test code = 6301-6) 1.42 Oral Anticoagulant Therapy INR Values:1. Low Intensity Therapy 1.5 - 2.02 . Moderate Intensity Therapy 2.0 - 3.03. High Intensity Therapy(1) 2.5 - 3. 54. High Intensity Therapy(2) 3.0 - 4.05. Panic Value INR > 5.0 [facility] HospitalActivated Partial Thromboplast Time 2017-07-31 16:04:00* Test Item Value Reference Range Interpretation Comments Activated Partial Thromboplast Time (test code = 01369-7) 30.1 23.8-35.5 [facility] HospitalInfluenza Virus Types A,B Antigen 2017-07-31 15:27:00* Test Item Value Reference Range Interpretation Comments Influenza Virus Types A,B Antigen (test code = 09682-5) NEGATIVE NEGATIVE [facility] HospitalInfluenza Virus Types A,B Antigen 2017-07-31 15:27:00* Test Item Value Reference Range Interpretation Comments Influenza Virus Types A,B Antigen (test code = 63699-1) NEGATIVE NEGATIVE [facility] HospitalInfluenza Virus Types A,B Antigen 2017-07-31 15:27:00* Test Item Value Reference Range Interpretation Comments Influenza Virus Types A,B Antigen (test code = 08612-5) NEGATIVE NEGATIVE [facility] HospitalInfluenza Virus Types A,B Antigen 2017-07-31 15:27:00* Test Item Value Reference Range Interpretation Comments Influenza Virus Types A,B Antigen (test code = 83812-1) NEGATIVE NEGATIVE [facility] HospitalInfluenza Virus Types A,B Antigen 2017-07-31 15:27:00* Test Item Value Reference Range Interpretation Comments Influenza Virus Types A,B Antigen (test code = 23473-0) NEGATIVE NEGATIVE [facility] HospitalInfluenza Virus Types A,B Antigen 2017-07-31 15:27:00* Test Item Value Reference Range Interpretation Comments Influenza Virus Types A,B Antigen (test code = 31207-4) NEGATIVE NEGATIVE [facility] HospitalBedside Hatymey0711-52-50 13:32:00* Test Item Value Reference Range Interpretation Comments Bedside Glucose (test code = 31370-5) 318 70-120 H Meter ID: [id number] Health Arlington Memorial HospitalBacteria identification in wound by olwyehp4830-65-09 08:24:00* Test Item Value Reference Range Interpretation Comments Wound Culture (test code = 6462-6) Organism: STREP AGALACTIAE GROUP B [facility] HospitalBacteria identification in wound by ehryjwm0450-92-38 08:24:00* Test Item Value Reference Range Interpretation Comments Wound Culture (test code = 6462-6) Organism: STREP AGALACTIAE GROUP B [facility] HospitalBacteria identification in wound by dduakzz8988-02-82 08:24:00* Test Item Value Reference Range Interpretation Comments Wound Culture (test code = 6462-6) Organism: STREP AGALACTIAE GROUP B [facility] HospitalBacteria identification in wound by wnxkrnr2072-21-68 08:24:00* Test Item Value Reference Range Interpretation Comments Wound Culture (test code = 6462-6) Organism: STREP AGALACTIAE GROUP B [facility] HospitalPrealbumin2017-11-30 20:56:00* Test Item Value Reference Range Interpretation Comments Prealbumin (test code = 49396-9) Performed at: [address] [id number] Director: Rafa Zamora MD, Phone: [phone] Health Arlington Memorial HospitalC-Reactive Jqusfvc4968-67-35 20:56:00* Test Item Value Reference Range Interpretation Comments C-Reactive Protein (test code = 1987-10) 12.8 0.0-4.9 H [facility] HospitalPrealbumin2017-11-30 20:56:00* Test Item Value Reference Range Interpretation Comments Prealbumin (test code = 25511-5) 31 10-36 Performed at: [address] [id number] Director: Rafa Zamora MD, Phone: [phone] Health Arlington Memorial HospitalC-Reactive Ejnessl3353-38-72 20:56:00* Test Item Value Reference Range Interpretation Comments C-Reactive Protein (test code = 1987-10) 12.8 0.0-4.9 H [facility] HospitalPrealbumin2017-11-30 20:56:00* Test Item Value Reference Range Interpretation Comments Prealbumin (test code = 51050-6) 31 10-36 Performed at: [address] [id number] Director: Rafa Zamora MD, Phone: [phone] Health [facility] HospitalC-Reactive Vezqkel2667-97-19 20:56:00* Test Item Value Reference Range Interpretation Comments C-Reactive Protein (test code = 1987-10) 12.8 0.0-4.9 H [facility] HospitalPrealbumin2017-11-30 20:56:00* Test Item Value Reference Range Interpretation Comments Prealbumin (test code = 53201-9) 31 10-36 Performed at: [address] [id number] Director: Rafa Zamora MD, Phone: [phone] Health Arlington Memorial HospitalC-Reactive Anufgge1299-25-89 20:56:00* Test Item Value Reference Range Interpretation Comments C-Reactive Protein (test code = 1987-10) 12.8 0.0-4.9 H [facility] HospitalPrealbumin2017-11-30 20:56:00* Test Item Value Reference Range Interpretation Comments Prealbumin (test code = 50624-4) 31 10-36 Performed at: [address] [id number] Director: Rafa Zamora MD, Phone: [phone] Health Arlington Memorial HospitalC-Reactive Qqdmiiu5602-04-35 20:56:00* Test Item Value Reference Range Interpretation Comments C-Reactive Protein (test code = 1987-5) 12.8 0.0-4.9 H [facility] HospitalPrealbumin2017-11-30 20:56:00* Test Item Value Reference Range Interpretation Comments Prealbumin (test code = 09970-5) 20 04-36 Performed at: - [facility] [id number] Director: Rafa Zamora MD, Phone: [phone] Health Arlington Memorial HospitalC-Reactive Mydcosk1978-50-61 20:56:00* Test Item Value Reference Range Interpretation Comments C-Reactive Protein (test code = 1987-10) 12.8 0.0-4.9 H [facility] HospitalPrealbumin2017-11-30 20:56:00* Test Item Value Reference Range Interpretation Comments Prealbumin (test code = 98572-7) 20 04-36 Performed at: - [facility] [id number] Director: Rafa Zamora MD, Phone: [phone] Health Arlington Memorial HospitalC-Reactive Bfdtyif2825-86-47 20:56:00* Test Item Value Reference Range Interpretation Comments C-Reactive Protein (test code = 1987-) 12.8 0.0-4.9 H [facility] HospitalErythrocyte Sedimentation Yzmn3143-14-65 14:39:00* Test Item Value Reference Range Interpretation Comments Erythrocyte Sedimentation Rate (test code = 4537-7) 71 0- 20 H [facility] HospitalErythrocyte Sedimentation Kqjx8670-09-13 14:39:00* Test Item Value Reference Range Interpretation Comments Erythrocyte Sedimentation Rate (test code = 4537-7) 71 0- 20 H [facility] HospitalErythrocyte Sedimentation Kbqg6886-48-17 14:39:00* Test Item Value Reference Range Interpretation Comments Erythrocyte Sedimentation Rate (test code = 4537-7) 71 0- 20 H [facility] HospitalErythrocyte Sedimentation Puji9796-62-20 14:39:00* Test Item Value Reference Range Interpretation Comments Erythrocyte Sedimentation Rate (test code = 4537-7) 71 0- 20 H [facility] HospitalErythrocyte Sedimentation Zhsj6125-53-87 14:39:00* Test Item Value Reference Range Interpretation Comments Erythrocyte Sedimentation Rate (test code = 4537-7) 71 0- 20 H [facility] HospitalErythrocyte Sedimentation Glmm6747-12-14 14:39:00* Test Item Value Reference Range Interpretation Comments Erythrocyte Sedimentation Rate (test code = 4537-7) 71 0- 20 H [facility] HospitalErythrocyte Sedimentation Mzev7021-02-18 14:39:00* Test Item Value Reference Range Interpretation Comments Erythrocyte Sedimentation Rate (test code = 4537-7) 71 0- 20 H [facility] Southodium Oucnb3437-69-37 14:21:00* Test Item Value Reference Range Interpretation Comments Sodium Level (test code = 2951-2) 138 136-145 [facility] HospitalPotassium Ihuqg8742-92-14 14:21:00* Test Item Value Reference Range Interpretation Comments Potassium Level (test code = 2823-3) 4.2 3.5-5.1 [facility] HospitalChloride Hgjct0688-27-10 14:21:00* Test Item Value Reference Range Interpretation Comments Chloride Level (test code = 2075-0) 104 98-107 [facility] HospitalCarbon Dioxide Ofjgt6726-00-27 14:21:00* Test Item Value Reference Range Interpretation Comments Carbon Dioxide Level (test code = 2028-9) 22 22-29 [facility] HospitalAnion Mtt8233-48-86 14:21:00* Test Item Value Reference Range Interpretation Comments Anion Gap (test code = 30852-0) 16.2 8-16 H [facility] HospitalBlood Urea Brbioerz3622-60-35 14:21:00* Test Item Value Reference Range Interpretation Comments Blood Urea Nitrogen (test code = 3094-0) 33 7-26 H [facility] HospitalCreatinine2017-11-29 14:21:00* Test Item Value Reference Range Interpretation Comments Creatinine (test code = 2160-0) 2.59 0.57-1.11 H [facility] HospitalBUN/Creatinine Mpfen5523-45-51 14:21:00* Test Item Value Reference Range Interpretation Comments BUN/Creatinine Ratio (test code = 3097-3) 13 6-25 [facility] HospitalEstimat Glomerular Filtration Rate 2017-05-19 14:21:00* Test Item Value Reference Range Interpretation Comments Estimat Glomerular Filtration Rate (test code = 43655-0) 18 >60 L Ranges were taken from the National Kidney Disease Education Program and the [facility] [employer] literature.Reference ranges:60 or greater: Jugtbb31-66 ( for 3 consecutive months): Chronic kidney disease 15 or less: Kidney failureTexas Health Arlington Memorial HospitalGlucose Fbtkx1809-05-17 14:21:00* Test Item Value Reference Range Interpretation Comments Glucose Level (test code = VKF0230) 311 74-118 H [facility] HospitalCalcium Ftyxt9519-66-20 14:21:00* Test Item Value Reference Range Interpretation Comments Calcium Level (test code = 73124-5) 9.1 8.4-10.2 [facility] HospitalTotal Adnuizcee0169-26-72 14:21:00* Test Item Value Reference Range Interpretation Comments Total Bilirubin (test code = 1975-2) 0.7 0.2-1.2 [facility] HospitalAspartate Amino Transf (AST/SGOT) 2017-05-19 14:21:00* Test Item Value Reference Range Interpretation Comments Aspartate Amino Transf (AST/SGOT) (test code = Aspartate Amino Transf (AST/SGOT)) 9 5-34 [facility] HospitalAlanine Aminotransferase (ALT/SGPT) 2017-05-19 14:21:00* Test Item Value Reference Range Interpretation Comments Alanine Aminotransferase (ALT/SGPT) (test code = 1742-6) 9 0-55 [facility] HospitalTotal Upechob5122-03-73 14:21:00* Test Item Value Reference Range Interpretation Comments Total Protein (test code = 2885-2) 7.3 6.5-8.1 [facility] HospitalAlbumin2017-11-29 14:21:00* Test Item Value Reference Range Interpretation Comments Albumin (test code = 1751-7) 3.1 3.5-5.0 L [facility] HospitalGlobulin2017-11-29 14:21:00* Test Item Value Reference Range Interpretation Comments Globulin (test code = 48568-0) 4.2 2.3-3.5 H [facility] HospitalAlbumin/Globulin Kmnng1229-14-01 14:21:00 * Test Item Value Reference Range Interpretation Comments Albumin/Globulin Ratio (test code = 1759-0) 0.7 0.8-2.0 L [facility] HospitalAlkaline Ctdtjentudj0358-26-25 14:21:00* Test Item Value Reference Range Interpretation Comments Alkaline Phosphatase (test code = 6768-6) 107 40-150 [facility] HospitalHemoglobin A1c Fxxcskr8370-89-93 14:07:00 * Test Item Value Reference Range Interpretation Comments Hemoglobin A1c Percent (test code = Hemoglobin A1c Percent) 9.9 4.0-7.0 H [facility] HospitalWhite Blood Sjwnz5633-45-92 13:55:00* Test Item Value Reference Range Interpretation Comments White Blood Count (test code = 6690-2) 11.98 4.8-10.8 H [facility] HospitalRed Blood Mtfpj5379-75-33 13:55:00* Test Item Value Reference Range Interpretation Comments Red Blood Count (test code = 789-8) 3.95 3.6-5.1 [facility] HospitalHemoglobin2017-11-29 13:55:00* Test Item Value Reference Range Interpretation Comments Hemoglobin (test code = 30981-4) 11.6 12.0-16.0 L [facility] HospitalHematocrit2017-11-29 13:55:00* Test Item Value Reference Range Interpretation Comments Hematocrit (test code = 4544-3) 33.8 34.2-44.1 L [facility] HospitalMean Corpuscular Uzfhsd3105-97-59 13:55:00* Test Item Value Reference Range Interpretation Comments Mean Corpuscular Volume (test code = 787-2) 85.6 81-99 [facility] HospitalMean Corpuscular Aakbbrfglw8041-88-17 13:55:00* Test Item Value Reference Range Interpretation Comments Mean Corpuscular Hemoglobin (test code = 785-6) 29.4 28-32 [facility] HospitalMean Corpuscular Hemoglobin Concent 2017-05-19 13:55:00* Test Item Value Reference Range Interpretation Comments Mean Corpuscular Hemoglobin Concent (test code = 786-4) 34.3 31-35 [facility] HospitalRed Cell Distribution Fsjzm5155-22-80 13:55:00* Test Item Value Reference Range Interpretation Comments Red Cell Distribution Width (test code = 80087-6) 13.8 11.7 -14.4 [facility] HospitalPlatelet Pttlo6808-20-10 13:55:00* Test Item Value Reference Range Interpretation Comments Platelet Count (test code = 777-3) 236 140-360 [facility] HospitalNeutrophils (%) (Auto)2017-05-19 13:55:00 * Test Item Value Reference Range Interpretation Comments Neutrophils (%) (Auto) (test code = 66071-9) 75.0 38.7-80.0 [facility] HospitalLymphocytes (%) (Auto)2017-05-19 13:55:00 * Test Item Value Reference Range Interpretation Comments Lymphocytes (%) (Auto) (test code = 736-9) 19.5 18.0-39.1 [facility] HospitalMonocytes (%) (Auto)2017-05-19 13:55:00* Test Item Value Reference Range Interpretation Comments Monocytes (%) (Auto) (test code = 5905-5) 4.1 4.4-11.3 L [facility] HospitalEosinophils (%) (Auto)2017-05-19 13:55:00 * Test Item Value Reference Range Interpretation Comments Eosinophils (%) (Auto) (test code = 713-8) 0.9 0.0-6.0 [facility] HospitalBasophils (%) (Auto)2017-05-19 13:55:00* Test Item Value Reference Range Interpretation Comments Basophils (%) (Auto) (test code = 706-2) 0.2 0.0-1.0 [facility] HospitalIM GRANULOCYTES %2017-05-19 13:55:00* Test Item Value Reference Range Interpretation Comments IM GRANULOCYTES % (test code = IM GRANULOCYTES %) 0.3 0.0- 1.0 [facility] HospitalNeutrophils # (Auto)2017-05-19 13:55:00* Test Item Value Reference Range Interpretation Comments Neutrophils # (Auto) (test code = 751-8) 9.0 2.1-6.9 H [facility] HospitalLymphocytes # (Auto)2017-05-19 13:55:00* Test Item Value Reference Range Interpretation Comments Lymphocytes # (Auto) (test code = 78089-0) 2.3 1.0-3.2 [facility] HospitalMonocytes # (Auto)2017-05-19 13:55:00* Test Item Value Reference Range Interpretation Comments Monocytes # (Auto) (test code = 742-7) 0.5 0.2-0.8 [facility] HospitalEosinophils # (Auto)2017-05-19 13:55:00* Test Item Value Reference Range Interpretation Comments Eosinophils # (Auto) (test code = 711-2) 0.1 0.0-0.4 [facility] HospitalBasophils # (Auto)2017-05-19 13:55:00* Test Item Value Reference Range Interpretation Comments Basophils # (Auto) (test code = 704-7) 0.0 0.0-0.1 [facility] HospitalAbsolute Immature Granulocyte (auto 2017-05-19 13:55:00* Test Item Value Reference Range Interpretation Comments Absolute Immature Granulocyte (auto (tanya t code = Absolute Immature Granulocyte (auto) 0.04 0-0.1 [facility] SouthTOOL CULTURE + SHIGA [id number] 13:07:00* Test Item Value Reference Range Interpretation Comments CULTURE (BEAKER) (test code = 1095) No Salmonella, Jolly gella or Campylobacter isolated Unable to test for Shiga Toxin 1 due to insufficient growth of specimen.Unable t o test for Shiga Toxin 2 due to insufficient growth of specimen.[facility].STOOL PATH [id number] 12:52:00* Test Item Value Reference Range Interpretation Comments PATHOGEN EXAM CHARGED (BEAKER) (test code = 2381) Done OCCULT BLOOD, [id number] 18:45:00* Test Item Value Reference Range Interpretation Comments FECAL OCCULT BLOOD (BEAKER) (test code = 618) Positive Negative A FECAL OLPUJKAYLV5772-54-31 18:44:00* Test Item Value Reference Range Interpretation Comments FECAL LEUKOCYTES (BEAKER) (test code = 992) No fecal leukocy tanya seen No fecal leukocytes seen POCT-GLUCOSE [id number] 17:12:00* Test Item Value Reference Range Interpretation Comments POC-GLUCOSE METER (BEAKER) (test code = 1538) 275 mg/dL 70-110 H TESTED AT [address] [address] PET, CARDIAC PERFUSION MULTIPLE STUDIES, REST AND [id number] 17:02:00 Reason for exam:->chest painFINAL REPORT PROCEDURE: Rest/Stress MYOCARDIAL PERFUSION PET with regadenoson\\XA9\\ CPT CODE: 76769 INDICATION: Chest pain HISTORY: Cardiac risk factors: [...] Preliminary ECG evaluation revealed sinus rhythm with nons pecific ST abnormality at rest and no ischemic changes with stress. (Final ECG i nterpretation and other stress and monitoring data are reported separately by Ca rdiology.) IMAGING FINDINGS: Study quality is good. Images obtained after r est and stress injections show normal LV activity. LV and RV volumes appear norm al. Gated images obtained at rest and with stress show normal LV wall motion and thickening. LVEF at rest is 59%. LVEF at stress is 63%. IMPRESSION: 1. Norm al study. 2. Appropriate pharmacologic stress. 3. Normal myocardial perfusion. 4. Normal resting LV function. No deterioration of function is noted with phar macologic stress. 5. Normal extracardiac tracer distribution. 6. No previous [facility] study for comparison. NONINVASIVE RISK STRATIFICATION: The above findings are considered low risk (<1% annual or CA) based on the following criterion:- Normal or small myocardial perfusion defect at rest or with stress encumbering <5% of the myocardium- Normal stress or no change of limited resting wall motion abnormalities during stress(JACC. 2017;69(54):2212-95.) Signed: Hallie Reyes Verified Date/Time: 04/08/2017 17:02:21 Reading Location: [address] Reading Room -GLUCOSE [id number] 12:23:00* Test Item Value Reference Range Interpretation Comments POC-GLUCOSE METER (BEAKER) (test code = 1538) 259 mg/dL 70-110 H TESTED AT [facility] [address] [facility] [id number] POCT-GLUCOSE [id number] 08:36:00* Test Item Value Reference Range Interpretation Comments POC-GLUCOSE METER (BEAKER) (test code = 1538) 203 mg/dL 70-110 H TESTED AT [facility] [address] [facility] [address] TROPONIN [id number] 08:32:00* Test Item Value Reference Range Interpretation Comments TROPONIN I (BEAKER) (test code = 397) 0.04 ng/mL 0.00-0.03 H Troponin I (TnI) levels must be interpreted in the context of the presenting sym ptoms and the clinical findings. Elevated TnI levels indicate myocardial damage, but are not specific for ischemic heart disease. Elevated TnI levels are seen in patients with other cardiac conditions (including myocarditis and congestive h eart failure), and slight TnI elevations occur in patients with other conditions , including sepsis, renal failure, acidosis, acute neurological disease, and per sistent tachyarrhythmia.BASIC METABOLIC [id number] 06:05:00* Test Item Value Reference Range Interpretation Comments SODIUM (BEAKER) (test code = 381) 137 meq/L 136-145 POTASSIUM (BEAKER) (test code = 379) 4.4 meq/L 3.5-5.1 CHLORIDE (BEAKER) (test code = 382) 105 meq/L 98-107 CO2 (BEAKER) (test code = 355) 22 meq/L 22-29 BLOOD UREA NITROGEN (BEAKER) (test code = 354) 38 mg/dL 7-21 H CREATININE (BEAKER) (test code = 358) 2.64 mg/dL 0.57-1.25 H GLUCOSE RANDOM (BEAKER) (test code = 652) 173 mg/dL 70-105 H CALCIUM (BEAKER) (test code = 697) 8.6 mg/dL 8.4-10.2 EGFR (BEAKER) (test code = 1092) 18 mL/min/1.73 sq m ESTIMATED GFR IS NOT ACCURATE CREATININE CLEARANCE IN PREDICTING GLOMERULAR FILTRATION RATE. ESTIMATED GFR IS NOT APPLICABLE FOR DIALYSIS PATIENTS. [id number] 06:03:00* Test Item Value Reference Range Interpretation Comments MAGNESIUM (BEAKER) (test code = 627) 1.6 mg/dL 1.6-2.6 CBC W/PLT COUNT & AUTO [id number] 05:18:00* Test Item Value Reference Range Interpretation Comments WHITE BLOOD CELL COUNT (BEAKER) (test code = 775) 6.9 K/ L 3.5- 10.5 RED BLOOD CELL COUNT (BEAKER) (test code = 761) 3.49 M/ L 3.93-5 .22 L HEMOGLOBIN (BEAKER) (test code = 410) 10.1 GM/DL 11.2-15.7 L HEMATOCRIT (BEAKER) (test code = 411) 30.9 % 34.1-44.9 L MEAN CORPUSCULAR VOLUME (BEAKER) (test code = 753) 88.5 fL 79. 4-94.8 MEAN CORPUSCULAR HEMOGLOBIN (BEAKER) (test code = 751) 28.9 pg 25.6-32.2 MEAN CORPUSCULAR HEMOGLOBIN CONC (BEAKER) (test code = 752) 32.7 GM/DL 32.2-35.5 RED CELL DISTRIBUTION WIDTH (BEAKER) (test code = 412) 13.6 % 11.7-14.4 PLATELET COUNT (BEAKER) (test code = 756) 207 K/CU MM 150-450 MEAN PLATELET VOLUME (BEAKER) (test code = 754) 9.6 fL 9.4-12 .3 NUCLEATED RED BLOOD CELLS (BEAKER) (test code = 413) 0 /100 WBC 0 -0 NEUTROPHILS RELATIVE PERCENT (BEAKER) (test code = 429) 53 % LYMPHOCYTES RELATIVE PERCENT (BEAKER) (test code = 430) 39 % MONOCYTES RELATIVE PERCENT (BEAKER) (test code = 431) 6 % EOSINOPHILS RELATIVE PERCENT (BEAKER) (test code = 432) 2 % BASOPHILS RELATIVE PERCENT (BEAKER) (test code = 437) 0 % NEUTROPHILS ABSOLUTE COUNT (BEAKER) (test code = 670) 3.65 K/ L 1.56-6.13 LYMPHOCYTES ABSOLUTE COUNT (BEAKER) (test code = 414) 2.69 K/ L 1.18-3.74 MONOCYTES ABSOLUTE COUNT (BEAKER) (test code = 415) 0.39 K/ L 0. 24-0.36 H EOSINOPHILS ABSOLUTE COUNT (BEAKER) (test code = 416) 0.16 K/ L 0.04-0.36 BASOPHILS ABSOLUTE COUNT (BEAKER) (test code = 417) 0.01 K/ L 0. 01-0.08 IMMATURE GRANULOCYTES-RELATIVE PERCENT (BEAKER) (test code = 2801) 0 % 0-1 U/S, RENAL WITH [id number] 05:15:00Reason for exam:->CRI MIKE VASCULAR HTNFINAL REPORT [...] Signed: JR Kaur Robert MDReport Verified Date/Time: 04/08/2017 05:15:25 Reading Location: [address] Body Reading Room - GLUCOSE [id number] 22:03:00* Test Item Value Reference Range Interpretation Comments POC-GLUCOSE METER (BEAKER) (test code = 1538) 254 mg/dL 70-110 H TESTED AT [address] [address] CREATINE KINASE (CK), TOTAL AND [id number] 19:01:00* Test Item Value Reference Range Interpretation Comments CREATINE KINASE TOTAL (BEAKER) (test code = 380) 44 U/L 29-20 0 CREATINE KINASE-MB (BEAKER) (test code = 750) 1.0 ng/mL 0.0-6.6 CREATINE KINASE-MB INDEX (BEAKER) (test code = 395) 2.3 % CK-MB Reference Range:<6.7 Normal6.7-10.0 Borderline>10.0 Abnormal TROPONIN [id number] 19:01:00* Test Item Value Reference Range Interpretation Comments TROPONIN I (BEAKER) (test code = 397) 0.06 ng/mL 0.00-0.03 H Troponin I (TnI) levels must be interpreted in the context of the presenting sym ptoms and the clinical findings. Elevated TnI levels indicate myocardial damage, but are not specific for ischemic heart disease. Elevated TnI levels are seen in patients with other cardiac conditions (including myocarditis and congestive h eart failure), and slight TnI elevations occur in patients with other conditions , including sepsis, renal failure, acidosis, acute neurological disease, and per sistent tachyarrhythmia.HEMOGLOBIN [id number] 17:41:00* Test Item Value Reference Range Interpretation Comments HEMOGLOBIN A1C (BEAKER) (test code = 368) 10.1 % 4.3-6.1 H CREATINE KINASE (CK), TOTAL AND [id number] 13:10:00* Test Item Value Reference Range Interpretation Comments CREATINE KINASE TOTAL (BEAKER) (test code = 380) 50 U/L 29-20 0 CREATINE KINASE-MB (BEAKER) (test code = 750) 1.1 ng/mL 0.0-6.6 CREATINE KINASE-MB INDEX (BEAKER) (test code = 395) 2.2 % CK-MB Reference Range:<6.7 Normal6.7-10.0 Borderline>10.0 Abnormal TROPONIN [id number] 13:10:00* Test Item Value Reference Range Interpretation Comments TROPONIN I (BEAKER) (test code = 397) 0.06 ng/mL 0.00-0.03 H Troponin I (TnI) levels must be interpreted in the context of the presenting sym ptoms and the clinical findings. Elevated TnI levels indicate myocardial damage, but are not specific for ischemic heart disease. Elevated TnI levels are seen in patients with other cardiac conditions (including myocarditis and congestive h eart failure), and slight TnI elevations occur in patients with other conditions , including sepsis, renal failure, acidosis, acute neurological disease, and per sistent tachyarrhythmia.CREATINE KINASE (CK), TOTAL AND [id number] 21:56:00* Test Item Value Reference Range Interpretation Comments CREATINE KINASE TOTAL (BEAKER) (test code = 380) 52 U/L 29-20 0 CREATINE KINASE-MB (BEAKER) (test code = 750) 1.4 ng/mL 0.0-6.6 CREATINE KINASE-MB INDEX (BEAKER) (test code = 395) 2.7 % CK-MB Reference Range:<6.7 Normal6.7-10.0 Borderline>10.0 Abnormal TROPONIN [id number] 21:56:00* Test Item Value Reference Range Interpretation Comments TROPONIN I (BEAKER) (test code = 397) 0.05 ng/mL 0.00-0.03 H Troponin I (TnI) levels must be interpreted in the context of the presenting sym ptoms and the clinical findings. Elevated TnI levels indicate myocardial damage, but are not specific for ischemic heart disease. Elevated TnI levels are seen in patients with other cardiac conditions (including myocarditis and congestive h eart failure), and slight TnI elevations occur in patients with other conditions , including sepsis, renal failure, acidosis, acute neurological disease, and per sistent tachyarrhythmia.B-TYPE NATRIURETIC FACTOR (BNP)2017-04-06 21:56:00* Test Item Value Reference Range Interpretation Comments B-TYPE NATRIURETIC PEPTIDE (BEAKER) (test code = 700) 193 pg/mL 0-100 H BASIC METABOLIC [id number] 21:49:00* Test Item Value Reference Range Interpretation Comments SODIUM (BEAKER) (test code = 381) 137 meq/L 136-145 POTASSIUM (BEAKER) (test code = 379) 5.1 meq/L 3.5-5.1 CHLORIDE (BEAKER) (test code = 382) 105 meq/L 98-107 CO2 (BEAKER) (test code = 355) 19 meq/L 22-29 L BLOOD UREA NITROGEN (BEAKER) (test code = 354) 32 mg/dL 7-21 H CREATININE (BEAKER) (test code = 358) 2.94 mg/dL 0.57-1.25 H GLUCOSE RANDOM (BEAKER) (test code = 652) 269 mg/dL 70-105 H CALCIUM (BEAKER) (test code = 697) 9.4 mg/dL 8.4-10.2 EGFR (BEAKER) (test code = 1092) mL/min/1.73 sq m INSUFFICIENT CLINICAL DATA TO CALCULATE ESTIMATED GFR. [id number] 21:48:00* Test Item Value Reference Range Interpretation Comments MAGNESIUM (BEAKER) (test code = 627) 1.7 mg/dL 1.6-2.6 CBC W/PLT COUNT & AUTO [id number] 21:30:00* Test Item Value Reference Range Interpretation Comments WHITE BLOOD CELL COUNT (BEAKER) (test code = 775) 10.5 K/ L 3.5- 10.5 RED BLOOD CELL COUNT (BEAKER) (test code = 761) 3.96 M/ L 3.93-5 .22 HEMOGLOBIN (BEAKER) (test code = 410) 11.1 GM/DL 11.2-15.7 L HEMATOCRIT (BEAKER) (test code = 411) 35.1 % 34.1-44.9 MEAN CORPUSCULAR VOLUME (BEAKER) (test code = 753) 88.6 fL 79. 4-94.8 MEAN CORPUSCULAR HEMOGLOBIN (BEAKER) (test code = 751) 28.0 pg 25.6-32.2 MEAN CORPUSCULAR HEMOGLOBIN CONC (BEAKER) (test code = 752) 31.6 GM/DL 32.2-35.5 L RED CELL DISTRIBUTION WIDTH (BEAKER) (test code = 412) 13.8 % 11.7-14.4 PLATELET COUNT (BEAKER) (test code = 756) 256 K/CU MM 150-450 MEAN PLATELET VOLUME (BEAKER) (test code = 754) 9.4 fL 9.4-12 .3 NUCLEATED RED BLOOD CELLS (BEAKER) (test code = 413) 0 /100 WBC 0 -0 NEUTROPHILS RELATIVE PERCENT (BEAKER) (test code = 429) 72 % LYMPHOCYTES RELATIVE PERCENT (BEAKER) (test code = 430) 22 % MONOCYTES RELATIVE PERCENT (BEAKER) (test code = 431) 5 % EOSINOPHILS RELATIVE PERCENT (BEAKER) (test code = 432) 1 % BASOPHILS RELATIVE PERCENT (BEAKER) (test code = 437) 0 % NEUTROPHILS ABSOLUTE COUNT (BEAKER) (test code = 670) 7.50 K/ L 1.56-6.13 H LYMPHOCYTES ABSOLUTE COUNT (BEAKER) (test code = 414) 2.26 K/ L 1.18-3.74 MONOCYTES ABSOLUTE COUNT (BEAKER) (test code = 415) 0.55 K/ L 0. 24-0.36 H EOSINOPHILS ABSOLUTE COUNT (BEAKER) (test code = 416) 0.09 K/ L 0.04-0.36 BASOPHILS ABSOLUTE COUNT (BEAKER) (test code = 417) 0.04 K/ L 0. 01-0.08 IMMATURE GRANULOCYTES-RELATIVE PERCENT (BEAKER) (test code = 2801) 1 % 0-1 RAD, CHEST, 1 VIEW, NON [id number] 20:52:00Reason for exam:->chest painFINAL REPORT HISTORY : chest pain. Comparison: 05/14/2010 Comment: Single portable view of the chest was obtained. The cardiac silhouette size is enlarged. There is a tortuous/ectatic thoracic aorta with some atheros clerotic calcification. Stable right-sided Port-A-Cath is in place. The patient is status post sternotomy. No pneumothorax, pleural effusion or focal infiltrate is seen. There is some linear likely scarring left midlung. A nonspecific linear density is also seen projecting over the right upper lung of unclear etiology/ significance and could represent a vessel or some scar versus calcification. Sig annita: Hemant Jay MDReport Verified Date/Time: 04/06/2017 20:52:45 Reading Loca tion: [facility] B1 C013W Consult Reading Room T SINGLE (PORTABLE) [place] [address] Patient Name: LAYO BOBO MR #: [id number] : 1945 Age/Sex: 72/F Req #: [id number] Adm Physician: Ordered by: BABAR ALEJO MD Report #: [id number] Location: ER Room/Bed: Procedure: [id number] DX/CHEST SINGLE (PORTABLE) E xam Date: 11/09/17 Exam Time: 524 REPORT STATU S: Signed EXAM: CHEST SINGLE (PORTABLE), AP 1 view INDICATION: Shortness of breath, hypertension COMPARISON: PA and lateral view of the chest July 31, 2017 FINDINGS: LINES/TUBES: Stable position right subclavian chest port. LUNGS: Interval increased vascular congestion, likely related to low in spiration. Mild bibasilar atelectasis. PLEURA: No effusions or pneumothora x. HEART AND MEDIASTINUM: Stable cardiac size given differences in position ing. Stable median sternotomy wires and mediastinal clips. BONES AND SOFT TISSUES: No acute findings. IMPRESSION: No significant interval change given differences in technique and positioning. Signed by: Dr. Francie Lynch M.D. on 11/09/2017 5:52 AM Dictated By: FRANCIE LYNCH MD Radha ctronically Signed By: FRANCIE LYNCH MD on 11/09/17551 Transcribed By: LJ Castillo on 11/09/17551 COPY TO: BABAR ALEJO MD ABDOMEN-1VIEW ([facility]) [place] [address] Patient Name: LAYO BOBO MR #: [id number] : 1945 Age/Sex: 72/F Req #: [id number] Adm Physician: TONG BRADSHAW MD Ordered by: MINH RUBIO [employer] Report #: [id number] Locat ion: MED/SURG3 Room/Bed: [facility] Procedure: [id number] D X/ABDOMEN-1VIEW ([facility]) Exam Date: 08/11/17 Exam Time: 06 REPORT STATUS: Signed EXAM: ABDOMEN-1VIEW ([facility]) DATE: 08/11/2017 5:00 AM Time stamp on exam: 6:21 AM INDICATION: Constipation, evaluate for obstruction COMPARISON: CT abdomen and pelvis on 07/31/2017 FINDING S: LINES/TUBES: None BOWEL PATTERN: No evidence for obstruction. SOF T TISSUES: Vascular stent noted in the distribution of the left common iliac v ein. Surgical clips in the anterior abdominal wall compatible with prior herni a repair. Cholecystectomy clips are present LUNG BASES: Lung bases are stacey r BONES: Degenerative changes of the thoracolumbar spine and bilateral SI j oints IMPRESSION: No evidence of obstruction. Signed by: Dr. Harshal Simmons M.D. on 08/11/2017 6:38 AM Dictated By: HARSHAL WOOD MD 7 Transcribed By: KEN on 08/11/17637 COPY TO: MINH RUBIO M[employer]ER P[employer]MENT MRI BRAIN WO [place] [address] Patient Name: LAYO BOBO MR #: [id number] : 1945 Age/Sex: 72/F Req #: [id number] Adm Physician: TONG BRADSHAW MD Ordered by: Sunita Ayala [employer] Report #: [id number] Location: MED/SURG3 Room/Bed: [facility] Procedure: [id number] MRI/MRI BRAIN WO Exam Date: Exam Time: REPOR T STATUS: Signed EXAMINATION: MRI of the brain without contrast. HIST ORY: Altered mental status for the last 2 days COMPARISON: Head CT on 8 TECHNIQUE: Sagittal T2; axial DWI, T2, FLAIR, T1-IR, T2 gradient echo; coron al FLAIR. IMAGE QUALITY: Adequate. Image quality: Motion artifact limits the evaluation of some of the sequences. FINDINGS: Parenchyma: 1. Few scattered and mildly confluent periventricular white matter T2 and FLAIR hyperintense foci, consistent with mild chronic microvascular ischemic salazar es. 2. No mass, hemorrhage, acute or chronic infarcts. Skull: Unre markable. Vessels: Expected flow voids present in the major arteri es and dural sinuses. Extra-axial spaces: No abnormal signal intensity or mass effect. Brain volume: Within normal limits for age. Ventri cles: No hydrocephalus or displacement. Foramen magnum: Unremarkable. Sella: Unremarkable. Paranasal / mastoid sinuses: No significant inflammatory disease. IMPRESSION: 1. No acute or chronic infarct. 2 . Mild chronic microvascular ischemic changes. Signed by: Dr. Dario Gaspar M.D. on 08/04/2017 12:23 PM Dictated By: DARIO GASPAR MD Electronically S igned By: DARIO GASPAR MD on 08/04/17 1223 Transcribed By: KEN on 08/04/17 1 223 COPY TO: SUNITA AYALA NP CT BRAIN WO [place] [address] Patient Name: LAYO BOBO MR #: [id number] : 1945 Age/Sex: 72/F Req #: [id number] Adm Physician: TONG BRADSHAW MD Ordered by: Sunita Ayala NP Report #: [id number] Location: [facility] Room/Bed: [facility] Procedure: [id number] CT/CT BRAIN WO Exam Date: 08/04/17 Exam Time: 0825 REPORT STATUS: Signed EXAMINATION: Head CT HISTORY: Lethargic, alt ered mental status COMPARISON: None available TECHNIQUE: Multidetector axial images were obtained without contrast from the foramen magnum to the vertex . The images were reconstructed using brain and bone algorithms. Thin section brain images were reformatted into coronal and sagittal planes. Intravenous contrast: None. Motion/streaking artifact limits the evaluation of the skull base and posterior cranial fossa. FINDINGS: Parenchyma: 1. Few scattered white matter hypodensities, most likely nonspecific changes, wit hin normal limits for age. 2. No mass or hemorrhage. No CT evidence of acute territorial vascular insult. Extra-axial spaces:No abnormal den sity. No extra-axial fluid collections Brain volume: Mild generalized br ain volume loss, within normal limits for age. Ventricles: No hydrocep halus or displacement. Arteries: No density suggestive of thrombus. Dural sinuses: No abnormal density. Extra-axial spaces: No abnormal density. Foramen magnum: No mass, Chiari malformation, or basilar invag ination. Sella: No obvious mass. Paranasal/mastoid sinuses: Luz Maria ged portions unremarkable. Skull/Scalp: No lytic or blastic lesions. No fractures. IMPRESSION: 1. No acute intracranial hemorrhage, cortical infarct or hydrocephalus. 2. Mild chronic microvascular ischemic changes. Signed by: Dr. Dario Gaspar M.D. on 08/04/2017 9:13 AM Dictated By: DARIO GASPAR MD 2 Chicas scribed By: KEN on 08/04/17912 COPY TO: SUNITA AYALA NP BONE SCAN, 3 PHASE [place] [address] Patient Name: LAYO BOBO MR #: [id number] : 1945 Age/Sex: 72/F Req #: [id number] Adm Physician: TONG BRADSHAW MD Ordered by: TAVIA SANTAMARIA, MAZIN SANTAMARIA Report #: [id number] Location: MED/SURG3 Room/Bed: [facility] Proc edure: [id number] NM/BONE SCAN, 3 PHASE Exam Date: 08/05/17 Exam Time: 1200 REPORT STATUS: Signed Bone Scan, three-phase - f eet and ankles Reason for exam: 72 F with nonhealing diabetic foot ulcer on plantar aspect of the left great toe; concern for osteomyelitis. 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 Radiopha rmaceutical: Tc-99m MDP 26.5 mCi Comparison: None Following intraveno us administration of the radiopharmaceutical, dynamic flow and immediate blood pool images of the feet and ankles followed by delayed spot images were obtai annita. Flow and blood pool images show diffuse, very mildly increased tracer in the left foot compared to the right foot with mildly increased tracer at t he distal aspect of the left great toe. Increased tracer is also seen along t he lateral aspect of the left hind foot. The delayed images show very min imally increased trace in the proximal phalanx of the left great toe and first metatarsophalangeal joint that is not as intense as tracer uptake seen on the blood pool image and is of the same intensity as the uptake in the other toes of the left foot. The uptake of tracer in the two is commensurate with the e xtent of hyperemia in the left foot and ankle compared to the right foot. Increased tracer is also seen in the soft tissues of the left hindfoot latera lly. Impression: 1. No convincing scan evidence of osteomyelitis in the proximal phalanx of the left great toe or in the head of the left first me tatarsal. 2. Soft tissue inflammation in the lateral aspect of the left hin dfoot although images are not optimized to absolutely exclude osteomyelitis in the hindfoot. Correlate clinically. Signed by: Dr. Brittani Childers M.D. on 08/09/2017 7:43 PM Dictated By: BRITTANI CHILDERS MD 42 Transcribed By: KEN on 08/09/171942 COPY TO: MAZIN SQUIRES MYOCARD IMG STRESS REST SPECT [place] [id number] [place] [address] Patient Name: LAYO BOBO MR #: [id number] : 1945 Age/Sex: 72/F Req #: [id number] Adm Physician: TONG BRADSHAW MD Ordered by: CINDY MIRANDA MD Report #: [id number] Loca tion: MED/SURG3 Room/Bed: [facility] Procedure: [id number] NM/MYOCARD IMG STRESS REST SPECT Exam Date: 08/02/17 Exam Time: 0900 REPORT STATUS: Signed Bone Scan, three-phase - feet and ankles Reason for exam: 72 F with diabetic foot ulcer on the plantar aspect of the left great toe; concern for osteomyelitis. Patient had amputation of distal phalanx of left great toe in 1977. Radiopharmaceutical: Tc-99m MDP 26.5 mCi Comparison: None Following intravenous administration of the radiopharmaceutical, dynamic flow and immediate blood pool images of the f eet and ankles followed by 3-hour delayed spot images were obtained. Zenon w and blood pool images show mild diffusely increased tracer in the left foot and ankle compared to the right with focal mildly increased tracer in the prox imal phalanx of the left great toe as well as increased tracer activity along the lateral aspect of the left hind foot. On the delayed images, diffusely mildly increased tracer activity is seen in the right foot compared to the lef t foot. Only very mildly increased tracer is seen in the proximal phalanx of the left great toe and at the left 1st metatarsophalangeal joint that is comme nsurate with the diffuse hyperemic process in the left foot. More markedly in creased tracer activity is seen in the soft tissues of the lateral aspect of t he left hind foot. The right foot is entirely unremarkable in appearance. Impression: 1. No convincing evidence of osteomyelitis in the remaining proximal phalanx of the left great toe or in the head of the left 1st metatars al. 2. Inflammatory process in the soft tissues of the lateral aspect of th e left hind foot. Signed by: Dr. Brittani Childers M.D. on 08/05/2017 10:45 PM Dictated By: BRITTANI CHILDERS MD 44 Transcribed By: KEN on 08/05/172244 COPY TO: CINDY MIRANDA MD CT ABDOMEN/PELVIS WO [place] [address] Patient Name: LAYO OBBO MR #: [id number] : 1945 Age/Sex: 72/F Req #: [id number] Adm Physician: Ordered by: GIANCARLO AGARWAL [employer] Report #: [id number] Location: ER Room/Bed: Procedure: [id number] CT/CT ABDOMEN/PELVIS WO E xam Date: 07/31/17 Exam Time: 1821 REPORT STATU S: Signed EXAMINATION: CT of the abdomen and pelvis without contrast. T ECHNIQUE: Helical CT images of the abdomen and pelvis were performed from the lung bases to the lesser trochanters. No intravenous contrast was given per r enal stone protocol. Coronal and sagittal reformatted images were obtained. COMPARISON: None. CLINICAL HISTORY:Flank pain DISCUSSION: ABSE NCE OF INTRAVENOUS CONTRAST DECREASES SENSITIVITY FOR DETECTION OF FOCAL LESIO NS AND VASCULAR PATHOLOGY. ABDOMEN/PELVIS: LOWER THORAX: Unremarkable. HEPATOBILIARY:No focal hepatic lesions. No biliary ductal dilation. Ch olecystectomy. SPLEEN: No splenomegaly. PANCREAS: No focal masses or d uctal dilatation. ADRENALS: No adrenal nodules. KIDNEYS/URETERS: Punct ate right renal calcification image 55. PELVIC ORGANS/BLADDER: The bladder is normal. PERITONEUM/RETROPERITONEUM: No free air or fluid. LYMPH N ODES: No intra-abdominal,retroperitoneal, pelvic or inguinal lymphadenopathy. VESSELS: Vascular calcifications. GI TRACT: No distention or wall thic kening. Appendix is normal. Duodenal diverticulum. BONES AND SOFT TISSUES : No bony destructive lesions. No acute soft tissue abnormalities. Lower pel warner abdominal wall diastases without herniation. IMPRESSION: No acute noncontrast CT finding. Mild colonic diverticulosis without inflammatory c hange. Signed by: Dr. Marcus Peoples M.D. on 07/31/2017 6:45 PM Dict ated By: MARCUS PEOPLES MD 44 COPY TO: Matt AGARWAL M[employer]ER P[employer]MENT CHEST 2 VIEWS [place] [address] Patient Name: LAYO BOBO MR #: [id number] : 1945 Age/Sex: 72/F Req #: [id number] Adm Physician: Ordered by: GABRIELLA HOWARD MD Report #: [id number] Location: ER Room/Bed: Procedure: [id number] DX/CHEST 2 VIEWS Exam Date : 07/31/17 Exam Time: 1555 REPORT STATUS: Nicole d EXAMINATION: PA and lateral views of the chest. COMPARISON: None CLINICAL HISTORY: Chest pain DISCUSSION: Lines/tubes: Right chest port with tip overlying the superior vena cava. Sternotomy wires. L ungs: The lungs are well inflated and clear. No pneumonia or pulmonary edema. Pleura: There is no pleural effusion or pneumothorax. Heart and medias tinum: The cardiomediastinal silhouette is normal. Bones and soft tissues: No acute bony abnormalities. Degenerative changes in the thoracic spine IMPRESSION: No acute cardiopulmonary abnormalities. Signed by: Dr. Marcus Peoples M.D. on 07/31/2017 4:15 PM Dictated By: MARCUS PEOPLES MD 1615 [place] scribed By: KEN on 07/31/17 1615 COPY TO: GABRIELLA HOWARD MD CHEST 2 VIEWS [place] [address] Patient Name: LAYO BOBO MR #: [id number] : 1945 Age/Sex: 72/F Req #: [id number] Adm Physician: Ordered by: SABRINA LOPEZ DPHerbert Report #: [id number] Location: [facility] Room/Bed: Procedure: [id number] DX/CHEST 2 VIEWS Exa m Date: 05/26/17 Exam Time: 1340 REPORT STATUS: Signed PROCEDURE: Frontal and lateral views of the chest. COMPARISON: None. INDICATIONS: PRE OPERTIVE CHEST X-RAY FOR FOOT SURGERY FINDINGS: Lines/tubes: Right subclavian tunneled chest port with tip projecti ng over the expected region of the superior vena cava. Lungs: The lung s are well inflated and clear. There is no evidence of pneumonia or pulmonary edema. Pleura: There is no pleural effusion or pneumothorax. Heart and mediastinum: The heart and the mediastinum are normal. Bones: No ac bishop paiute bony abnormality. Degenerative changes of the thoracic spine. Median ster notomy wires. IMPRESSION: No acute radiographic abnormality. Dictated by: Ellis Hogue M.D. on 05/26/2017 at 15:01 Electronically nannette roved by: Ellis Hogue M.D. on 05/26/2017 at 15:01 Dictated By: ELLIS HOGUE MD 1501 T ranscribed By: MARCO ANTONIO on 05/26/17 1501 COPY TO: SABRINA LOPEZ DPM
[2019-11-23] MEDS ORDERED: ACETAMINOPHEN 325 MG TAB PO ONE (22:45)
[2019-11-23 23:15] LABS: BASOPHILS % 0.2 % (0.0-1.0); EOSINOPHILS % 0.4 % (0.0-6.0); HEMATOCRIT 35.1 % (34.2-44.1); HEMOGLOBIN 11.5 g/dL (12.0-16.0); LYMPHOCYTES # (AUTO) 1.7 (1.0-3.2); LYMPHOCYTES % 17.5 % (18.0-39.1); MEAN CORPUSCULAR HEMOGLOBIN 27.7 pg (28-32); MEAN CORPUSCULAR HGB CONC 32.8 g/dL (31-35); MEAN CORPUSCULAR VOLUME 84.6 fL (81-99); MONOCYTES # (AUTO) 0.4 (0.2-0.8); MONOCYTES % 4.1 % (4.4-11.3); NEUTROPHILS # (AUTO) 7.7 (2.1-6.9); NEUTROPHILS % 77.5 % (38.7-80.0); PLATELET COUNT 226 x10e3/uL (140-360); RED BLOOD COUNT 4.15 x10e6/uL (3.6-5.1); RED CELL DISTRIBUTION WIDTH 14.4 % (11.7-14.4)
[2019-11-23 23:22] LABS: INR 1.02
[2019-11-23 23:32] LABS: ALBUMIN 3.8 g/dL (3.5-5.0); ANION GAP 19.3 mmol/L (8-16); CALCIUM 9.6 mg/dL (8.4-10.2); CREATININE, SERUM 4.66 mg/dL (0.57-1.11); POTASSIUM 4.3 mmol/L (3.5-5.1)
[2019-11-23 23:39] LABS: AMYLASE 39 U/L (25-125); CREATINE KINASE MB 0.7 ng/mL (0-5.0); LIPASE 42 U/L (8-78)
[2019-11-23] MEDS ORDERED: SODIUM CHLORIDE 0.9% 500ML 500 ML IV ONE (23:45)
[2019-11-23] MEDS ORDERED: CEFEPIME 2 GM/NS 0.9% 100 ML 100 ML IV ONE ×2 (23:45→23:59)
[2019-11-23] MEDS ORDERED: DIATRIZOATE MEGL/DIATRIZOA SOD 30 ML BTL PO ONE (23:58)
--- NOTE | 2019-11-23 23:58 | Emergency Department Note ---
History of Present Illnes History of Present Illness Chief Complaint: General Medicine Complaints History of Present Illness This is a 74 year old Unknown female presents with complaint of diarrhea for 4 hours following dialysis today. Patient noted to have low-grade fever on arrival of 100.4. Patient denies abdominal pain.. Historian: Patient Arrival Mode: Car Onset (how long ago): hour(s) (5) Location: abdomen Quality: diarrhea Radiation: non-radiation Severity: moderate Onset quality: sudden Duration (how long): hour(s) (5) Timing of current episode: intermittent Progression: worsening Context: recent illness Relieving factors: none Exacerbating factors: none Associated symptoms: denies other symptoms Treatments prior to arrival: none Past Medical/Family History Physician Review I have reviewed the patient's past medical and family history. Any updates have been documented here. Past Medical History Recent Fever: No Clinical Suspicion of Infectio: No New/Unexplained Change in Ment: No Past Medical History: Hypertension, ESRD Other Medical History: ENDOMETRIAL CANCER 1999 STAGE 4 KIDNEY DISEASE HIGH CHOLESTEROL NEUROPATHY Past Surgical History: Cholecysctectomy, Hysterectomy, CABG Other Surgery: LEFT FOOT GREAT TOE AND 2ND TOE AMPUTATIONS CATARACT SURGERY LEFT AV GRAFT NOT USING YET RAJINDER CATH LEFT SUBCLAVIN Social History Smoking Cessation: Never Smoker Alcohol Use: None Any Illegal Drug Use: No Family History Family history of heart diseas: No Other Last Tetanus: 2017 Review of Systems Review of Systems Constitutional: no symptoms EENTM: no symptoms Cardiovascular: no symptoms Respiratory: no symptoms Gastrointestinal: as per HPI Genitourinary: no symptoms Musculoskeletal: no symptoms Neurological: no symptoms Psychological: no symptoms Endocrine: no symptoms Hematological/Lymphatic: no symptoms Review of other systems All other systems reviewed and negative. Physical Exam Related Data Allergies: Coded Allergies: Sulfa (Sulfonamide Antibiotics) (Verified Allergy, Mild, ITCHING, 10/31/18) hydralazine (Verified Allergy, Unknown, 11/09/17) STATES HEART BEATS FAST Triage Vital Signs Vital Signs Date Time Temp Pulse Resp B/P (MAP) Pulse Ox O2 Delivery O2 Flow Rate FiO2 11/23/19 21:27 100.4 88 17 152/63 100 Vital signs reviewed: Yes Physical Exam CONSTITUTIONAL Constitutional: well-developed, well-nourished HENT HENT: normocephalic, atraumatic, oropharynx clear/moist, nose normal HENT L/R: left ext ear normal, right ext ear normal EYES Eyes: PERRL, conjunctivae normal NECK Neck: ROM normal PULMONARY Pulmonary: effort normal, breath sounds normal CARDIOVASCULAR Cardiovascular: regular rhythm, heart sounds normal, capillary refill normal, normal rate GASTROINTESTINAL Abdominal: soft, nontender, bowel sounds normal GENITOURINARY Genitourinary: exam deferred SKIN Skin: warm, dry MUSCULOSKELETAL Musculoskeletal: ROM normal NEUROLOGICAL Neurological: alert, oriented x 3, no gross motor or sensory deficits PSYCHOLOGICAL Psychological: mood/affect normal, judgement normal Results Laboratory Result Diagram: 11/23/19229911/23/192299 Laboratory Laboratory Tests Test 11/24/19 01:25 11/23/19 23:59 11/23/19 23:00 Lactic Acid Level 0.9 mmol/L (0.5-2.0) 2.7 mmol/L (0.5-2.0) Urine Color Yellow (YELLOW) Urine Clarity Cloudy (CLEAR) Urine pH 8.5 (5 - 7) Urine Specific [place] 1.020 (1.010-1.025) Urine Protein >=300 (NEGATIVE) Urine Glucose (UA) 1+ (NEGATIVE) Urine Ketones Negative (NEGATIVE) Urine Blood 1+ (NEGATIVE) Urine Nitrite Negative (NEGATIVE) Urine Bilirubin Negative (NEGATIVE) Urine Urobilinogen 0.2 mg/dL (0.2 - 1) Urine Leukocyte Esterase 1+ (NEGATIVE) Urine RBC 6-10 /HPF (0-5) Urine WBC >50 /HPF (0-5) Urine Epithelial Cells Few /LPF (NONE) Urine Bacteria Few /HPF (NONE) White Blood Count 9.91 x10e3/uL (4.8-10.8) Red Blood Count 4.15 x10e6/uL (3.6-5.1) Hemoglobin 11.5 g/dL (12.0-16.0) Hematocrit 35.1 % (34.2-44.1) Mean Corpuscular Volume 84.6 fL (81-99) Mean Corpuscular Hemoglobin 27.7 pg (28-32) Mean Corpuscular Hemoglobin Concent 32.8 g/dL (31-35) Red Cell Distribution Width 14.4 % (11.7-14.4) Platelet Count 226 x10e3/uL (140-360) Neutrophils (%) (Auto) 77.5 % (38.7-80.0) Lymphocytes (%) (Auto) 17.5 % (18.0-39.1) Monocytes (%) (Auto) 4.1 % (4.4-11.3) Eosinophils (%) (Auto) 0.4 % (0.0-6.0) Basophils (%) (Auto) 0.2 % (0.0-1.0) Neutrophils # (Auto) 7.7 (2.1-6.9) Lymphocytes # (Auto) 1.7 (1.0-3.2) Monocytes # (Auto) 0.4 (0.2-0.8) Eosinophils # (Auto) 0.0 (0.0-0.4) Basophils # (Auto) 0.0 (0.0-0.1) Absolute Immature Granulocyte (auto 0.03 x10e3/uL (0-0.1) Prothrombin Time 14.0 seconds (11.9-14.5) Prothromb Time International Ratio 1.02 Activated Partial Thromboplast Time 23.0 seconds (23.8-35.5) Sodium Level 138 mmol/L (136-145) Potassium Level 4.3 mmol/L (3.5-5.1) Chloride Level 98 mmol/L (98-107) Carbon Dioxide Level 25 mmol/L (22-29) Anion Gap 19.3 mmol/L (8-16) Blood Urea Nitrogen 19 mg/dL (7-26) Creatinine 4.66 mg/dL (0.57-1.11) Estimat Glomerular Filtration Rate 9 ML/MIN (60-) BUN/Creatinine Ratio 4 (6-25) Glucose Level 163 mg/dL (74-118) Calcium Level 9.6 mg/dL (8.4-10.2) Total Bilirubin 0.8 mg/dL (0.2-1.2) Aspartate Amino Transf (AST/SGOT) 22 IU/L (5-34) Alanine Aminotransferase (ALT/SGPT) 17 IU/L (0-55) Alkaline Phosphatase 89 IU/L (40-150) Creatine Kinase 43 IU/L (29-168) Creatine Kinase MB 0.70 ng/mL (0-5.0) Troponin I 0.022 ng/mL (0-0.300) Total Protein 7.6 g/dL (6.5-8.1) Albumin 3.8 g/dL (3.5-5.0) Globulin 3.8 g/dL (2.3-3.5) Albumin/Globulin Ratio 1.0 (0.8-2.0) Amylase Level 39 U/L (25-125) Lipase 42 U/L (8-78) Laboratory Tests Test 11/23/19 23:00 White Blood Count 9.91 x10e3/uL (4.8-10.8) Red Blood Count 4.15 x10e6/uL (3.6-5.1) Hemoglobin 11.5 g/dL (12.0-16.0) Hematocrit 35.1 % (34.2-44.1) Mean Corpuscular Volume 84.6 fL (81-99) Mean Corpuscular Hemoglobin 27.7 pg (28-32) Mean Corpuscular Hemoglobin Concent 32.8 g/dL (31-35) Red Cell Distribution Width 14.4 % (11.7-14.4) Platelet Count 226 x10e3/uL (140-360) Neutrophils (%) (Auto) 77.5 % (38.7-80.0) Lymphocytes (%) (Auto) 17.5 % (18.0-39.1) Monocytes (%) (Auto) 4.1 % (4.4-11.3) Eosinophils (%) (Auto) 0.4 % (0.0-6.0) Basophils (%) (Auto) 0.2 % (0.0-1.0) Neutrophils # (Auto) 7.7 (2.1-6.9) Lymphocytes # (Auto) 1.7 (1.0-3.2) Monocytes # (Auto) 0.4 (0.2-0.8) Eosinophils # (Auto) 0.0 (0.0-0.4) Basophils # (Auto) 0.0 (0.0-0.1) Absolute Immature Granulocyte (auto 0.03 x10e3/uL (0-0.1) Prothrombin Time 14.0 seconds (11.9-14.5) Prothromb Time International Ratio 1.02 Activated Partial Thromboplast Time 23.0 seconds (23.8-35.5) Sodium Level 138 mmol/L (136-145) Potassium Level 4.3 mmol/L (3.5-5.1) Chloride Level 98 mmol/L (98-107) Carbon Dioxide Level 25 mmol/L (22-29) Anion Gap 19.3 mmol/L (8-16) Blood Urea Nitrogen 19 mg/dL (7-26) Creatinine 4.66 mg/dL (0.57-1.11) Estimat Glomerular Filtration Rate 9 ML/MIN (60-) BUN/Creatinine Ratio 4 (6-25) Glucose Level 163 mg/dL (74-118) Lactic Acid Level 2.7 mmol/L (0.5-2.0) Calcium Level 9.6 mg/dL (8.4-10.2) Total Bilirubin 0.8 mg/dL (0.2-1.2) Aspartate Amino Transf (AST/SGOT) 22 IU/L (5-34) Alanine Aminotransferase (ALT/SGPT) 17 IU/L (0-55) Alkaline Phosphatase 89 IU/L (40-150) Creatine Kinase 43 IU/L (29-168) Creatine Kinase MB 0.70 ng/mL (0-5.0) Troponin I 0.022 ng/mL (0-0.300) Total Protein 7.6 g/dL (6.5-8.1) Albumin 3.8 g/dL (3.5-5.0) Globulin 3.8 g/dL (2.3-3.5) Albumin/Globulin Ratio 1.0 (0.8-2.0) Amylase Level 39 U/L (25-125) Lipase 42 U/L (8-78) Lab results reviewed: Yes Laboratory comments pt with uti Imaging Imaging results reviewed: Yes Impressions Procedure: [id number] CT/CT ABDOMEN/PELVIS WO Exam Date: 11/24/19 Exam Time: 129 REPORT STATUS: Signed CT Abdomen and Pelvis without contrast INDICATION: , ^ORAL CONTRAST, FEVER, DIARRHEA ^[id number] ^0130 ^Y TECHNIQUE: Thin collimation axial images obtained from the diaphragm to the level of the pubic symphysis without nonionic intravenous contrast. Dose reduction techniques used: Automated exposure control, adjustment of the mAs and/or kVp according to patient size, standardized low-dose protocol, and/or iterative reconstruction technique. RADIATION DOSE: Total DLP: 351.06 mGy*cm Estimated effective dose: (DLP x 0.015 x size factor) mSv CTDIvol has been reviewed. It is below the limits set by the Radiation Protocol Committee (RPC). COMPARISON: CT abdomen/pelvis 07/31/2017. ABDOMEN FINDINGS: Lung Bases: The heart is enlarged with cardiac bypass changes.. Mild bibasilar atelectasis. Liver: Normal in attenuation without mass. Gallbladder: Absent. No ductal dilatation. Pancreas: Normal attenuation without mass. Spleen: Normal size without mass. Adrenal Glands: No evidence for mass. Kidneys: Right: No renal calculus. No cortical mass or hydronephrosis Left: No renal calculus. No cortical mass or hydronephrosis Lymph Nodes: No lymphadenopathy. Aorta: Normal in diameter and diffusely calcified. IVC: Normal morphology. Stable stent in the left common iliac vein. PELVIS FINDINGS: Bowel: Stomach: Normal. Small Bowel: Normal in caliber with normal wall thickness. Large Bowel: Diverticulosis coli. No associated inflammation. Appendix: Normal. Bladder: Underdistended. Ureters: No ureteral dilatation or calculus. The uterus is absent. No adnexal mass. Peritoneum/retroperitoneum: No free fluid or fluid collection. Bones: Mild and stable wedge-shaped compression deformity of T11. No new compression deformities. No focal osseous lesions. Soft tissues: Unremarkable. IMPRESSION: 1. Diverticulosis coli. No evidence for bowel obstruction or inflammation. Normal appendix. 2. No evidence of renal calculus or obstructive uropathy. 3. Stable postoperative changes as described above. Signed by: Dr. George Beltrán MD on 11/24/2019 2:14 AM Dictated By: GEORGE BELTRÁN MD 3 Transcribed By: KEN on 11/24/19213 COPY TO: LUNA ALTAMIRANO MD~ Procedures 12 Lead ECG Interpretation Breeder Service Technician: Interpreted by ED physician Date: Nov 24, 2019 Time: 00:13 Rhythm: sinus rhythm Rate: normal BPM: 74 QRS axis: left Conduction: intraventricular conduction delay ST segments normal: Yes T waves normal: Yes Q waves: III, aVF Clinical Impression: abnormal ECG Critical Care Time Subsequent provider I assumed direction of critical care for this patient from another provider of my specialty. 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 CBC, CMP, UA, chest x-ray, lactic acid, CT abdomen and pelvis, ordered to eval for sepsis, UTI, pneumonia, diverticulitis, colitis. At 11:30 PM patient's lactic acid came back positive at 2.7. Sepsis time is 11:30 PM. Normal saline 500 mL bolus ordered. Cefepime 2 g IV ordered. Tylenol 650 mg by mouth ordered. Second lactic acid 0.9. Patient found to have findings of diverticulitis. I spoke with Dr. Bradshaw due to no beds at this facility we will attempt to transfer patient [facility]. Patient excepted [facility]. Depart Disposition: TRANS TO OTHER [facility] F[facility] Last Vital Signs Date Time Temp Pulse Resp B/P (MAP) Pulse Ox O2 Delivery O2 Flow Rate FiO2 11/23/19 21:27 100.4 88 17 152/63 100 Home Meds Active Scripts Amoxicillin/Potassium Clav (AUGMENTIN 875-125 TABLET) 1 Each Tablet, 875 MG PO DAILY for 7 Days, #30 TAB Prov:MAK LUKE REGISTRATION REPRESENTATIVE 11/14/18 Melatonin (MELATONIN) 5 Mg Tablet, 5 MG PO HS PRN for INSOMNIA for 30 Days Prov:GOLD AYALA REGISTRATION REPRESENTATIVE 11/13/18 [Meclizine Hcl] 12.5 MG TAB No Conflict Check, 12.5 MG PO DAILY PRN for DIZZINESS for 30 Days Prov:GOLD AYALA REGISTRATION REPRESENTATIVE 11/13/18 Docusate Sodium (COLACE) 100 Mg Cap, 100 MG PO Q12HR for 30 Days, CAP Prov:GOLD AYALA REGISTRATION REPRESENTATIVE 11/13/18 Megestrol Acetate (MEGESTROL ACETATE) 40 Mg Tablet, 80 MG PO BIDAC for 30 Days Prov:GOLD AYALA REGISTRATION REPRESENTATIVE 11/04/18 Furosemide (FUROSEMIDE) 40 Mg Tablet, 20 MG PO Daily, #30 TAB Prov:GOLD AYALA REGISTRATION REPRESENTATIVE 11/11/17 Ascorbic Acid (ASCORBIC ACID) 500 Mg Tablet, 500 MG PO BID for 30 Days Prov:GOLD AYALA REGISTRATION REPRESENTATIVE 08/05/17 Lorazepam (LORAZEPAM) 0.5 Mg Tablet, 0.5 MG PO DAILY PRN for ANXIETY for 14 Days, TAB Prov:GOLD AYALA REGISTRATION REPRESENTATIVE 08/05/17 Reported Medications Prednisone (PREDNISONE) 5 Mg Tablet, 5 MG PO DAILY 11/09/17 Insuln Asp Prt/Insulin Aspart (NOVOLOG MIX 70-30 FLEXPEN SYRN) 100 Unit/1 Ml Insuln.pen, 20 U SC EVENING 11/09/17 Insuln Asp Prt/Insulin Aspart (NOVOLOG MIX 70-30 FLEXPEN SYRN) 100 Unit/1 Ml Insuln.pen, 30 U SC ACB 11/09/17 Memantine Hcl (NAMENDA) 10 Mg Tablet, 10 MG PO HS, #30 TAB 11/09/17 Donepezil Hcl (ARICEPT) 5 Mg Tablet, 10 MG PO HS, #60 TAB 11/09/17 Isosorbide Mononitrate (ISOSORBIDE MONONITRATE ER) 60 Mg Tab.er.24h, 60 MG PO DAILY 11/09/17 Aspirin (ASPIRIN) 325 Mg Tablet, 325 MG PO DAILY, #30 TAB 11/09/17 Atorvastatin Calcium (ATORVASTATIN CALCIUM) 40 Mg Tablet, 40 MG PO HS, #30 TAB 11/09/17 Clopidogrel Bisulfate* (PLAVIX) 75 Mg Tablet, 75 MG PO DAILY, #30 TAB 07/31/17 Escitalopram Oxalate (LEXAPRO) 10 Mg Tablet, 5 PO DAILY, #30 TAB 07/31/17 Gabapentin (GABAPENTIN) 300 Mg Capsule, 600 MG PO BID, #60 CAP 07/31/17 Medications in the ED Acetaminophen 650 mg ONCE ONCE PO Last administered on 11/23/19at 23:03; Admin Dose 650 MG; Start 11/23/19 at 22:45; Stop 11/23/19 at 22:46; Status DC Sodium Chloride 500 ml @ 0 mls/hr Q0M ONCE IV ; Start 11/23/19 at 23:45; Stop 11/23/19 at 23:46; Status DC Cefepime HCl 100 ml @ 200 mls/hr ONCE ONCE IV ; Start 11/23/19 at 23:45; Stop 11/24/19 at 00:14 Diatrizoate Meglum/ Diatrizoate Sod 30 ml STK-MED ONCE PO ; Start 11/23/19 at 23:58; Stop 11/23/19 at 23:53; Status DC LUNA ALTAMIRANO MD Nov 23, 2019 23:58
[2019-11-24 01:05] LABS: CLARITY,URINE CLOUDY (CLEAR); COLOR,URINE YELLOW (YELLOW)
[2019-11-24 01:06] LABS: BILIRUBIN,URINE NEGATIVE (NEGATIVE); KETONES,URINE NEGATIVE (NEGATIVE); LEUKOCYTE ESTERASE ,URINE 1+ (NEGATIVE); NITRITE,URINE NEGATIVE (NEGATIVE); PROTEIN,URINE DIPSTICK >=300 (NEGATIVE); URINE UROBILINOGEN 0.2 mg/dL (0.2 - 1)
[2019-11-24 01:27] LABS: BACTERIA,URINE FEW /HPF; EPITHELIAL CELLS,URINE FEW /LPF; WBC,URINE (MAN) >50 /HPF (0-5)
--- NOTE | 2019-11-24 02:17 | Diagnostic Imaging Report ---
CT Abdomen and Pelvis without contrast INDICATION: , ^ORAL CONTRAST, FEVER, DIARRHEA ^[id number] ^0130 ^Y TECHNIQUE: Thin collimation axial images obtained from the diaphragm to the level of the pubic symphysis without nonionic intravenous contrast. Dose reduction techniques used: Automated exposure control, adjustment of the mAs and/or kVp according to patient size, standardized low-dose protocol, and/or iterative reconstruction technique. RADIATION DOSE: Total DLP: 351.06 mGy*cm Estimated effective dose: (DLP x 0.015 x size factor) mSv CTDIvol has been reviewed. It is below the limits set by the Radiation Protocol Committee (RPC). COMPARISON: CT abdomen/pelvis 07/31/2017. ABDOMEN FINDINGS: Lung Bases: The heart is enlarged with cardiac bypass changes.. Mild bibasilar atelectasis. Liver: Normal in attenuation without mass. Gallbladder: Absent. No ductal dilatation. Pancreas: Normal attenuation without mass. Spleen: Normal size without mass. Adrenal Glands: No evidence for mass. Kidneys: Right: No renal calculus. No cortical mass or hydronephrosis Left: No renal calculus. No cortical mass or hydronephrosis Lymph Nodes: No lymphadenopathy. Aorta: Normal in diameter and diffusely calcified. IVC: Normal morphology. Stable stent in the left common iliac vein. PELVIS FINDINGS: Bowel: Stomach: Normal. Small Bowel: Normal in caliber with normal wall thickness. Large Bowel: Diverticulosis coli. No associated inflammation. Appendix: Normal. Bladder: Underdistended. Ureters: No ureteral dilatation or calculus. The uterus is absent. No adnexal mass. Peritoneum/retroperitoneum: No free fluid or fluid collection. Bones: Mild and stable wedge-shaped compression deformity of T11. No new compression deformities. No focal osseous lesions. Soft tissues: Unremarkable. IMPRESSION: 1. Diverticulosis coli. No evidence for bowel obstruction or inflammation. Normal appendix. 2. No evidence of renal calculus or obstructive uropathy. 3. Stable postoperative changes as described above. Signed by: Dr. Tanja Beltrán MD on 11/24/2019 2:14 AM
[2019-11-24] MEDS ORDERED: METRONIDAZOLE 500MG/NS 100ML 100 ML IV STA (02:31)
[2019-11-24] MEDS ORDERED: METRONIDAZOLE 500MG/NS 100ML 100 ML IV ONE (02:34)
--- NOTE | 2019-11-24 04:57 | NUR ---
[facility] AND [facility] DT NOTIFIED OF NEED FOR TRANSFER; PT HAS DX OF FEVER, COVID SWAB MUST BE OBTAINED AND RESULTED PRIOR TO TRANSFER. COVID SWAB OBTAINED AND SENT TO LAB PUI, WILL CONTINUE TRANSFER WITH [facility] ([facility]) DR. Nanda CLAYTON HAS ALREADY ACCEPTED PT PER ER PHYSICIAN.
--- NOTE | 2019-11-24 06:01 | Diagnostic Imaging Report ---
EXAMINATION: CHEST SINGLE (PORTABLE) COMPARISON: Chest x-ray 11/11/2018 INDICATION: ^FEVER, DIARRHEA ^[id number] ^0130 ^Y DISCUSSION: Frontal view of the chest obtained at 0137 hours. HEART AND MEDIASTINUM: Stable mild cardiomegaly and cardiac bypass changes. LINES: None. LUNGS/PLEURA: The lungs are well inflated and clear. No pneumonia or pulmonary edema. No pleural effusion or pneumothorax. BONES AND SOFT TISSUES: Median sternotomy wires are intact. There are degenerative changes of the thoracic spine. The soft tissues are normal. IMPRESSION: Stable mild cardiomegaly. No acute cardiopulmonary process. Signed by: Dr. Tanja Beltrán MD on 11/24/2019 5:57 AM
[2019-11-24 07:09] VITALS: BP 171/75
== END 2019-11-24 07:00 | disposition other institution (70) ==
LOC: ER 20:42
DX: R50.9 Fever, unspecified (principal); A41.9 Sepsis, unspecified organism; K57.30 Diverticulosis of large intestine without perforation or abscess without bleeding; I12.0 Hypertensive chronic kidney disease with stage 5 chronic kidney disease or end stage renal disease; N18.6 End stage renal disease; Z99.2 Dependence on renal dialysis; Z85.89 Personal history of malignant neoplasm of other organs and systems; Z95.1 Presence of aortocoronary bypass graft
CPT/HCPCS: 36415; 80053; 82150; 82550; 82553; 83605; 83690; 84484; 85025; 85610; 85730; 87040; 99284; J7040; 71045; 74176; 81001; 87086; 87635; 93005